=== PATIENT | female | born 1975 | race Caucasian/White ===

== ENCOUNTER 2016-03-18 14:21 | Emergency (ER) | payer MEDICAID, OTHER ==
[~2016-03-18 14:21] MED LIST: ACET50TAOT PO; AMBI10TA PO; CORTCRE TOP; DICLOFENAC 75 MG PO; HM A10TA PO; HYDR-3716 PO; IBUP600T26 PO; METH75TA PO; MILKSUS PO; MULTTAB24 PO; MUPI2CRE EX; NORCOTAB PO; OXYC1TAB23 PO; ROBA750T4 PO; TYLE325T5 PO; ZOLO100T PO; ZONI100C2 PO; [UNRECOGNIZED DRUG - CODE] PO; [UNRECOGNIZED DRUG - CODE] XX
[2016-03-18] MEDS ORDERED: MORPHINE 4 MG/ML 1ML SYRINGE As Ordered ONE (17:09)
[2016-03-18] MEDS ORDERED: ONDANSETRON 4MG/2ML VIAL (J2405) As Ordered ONE (17:09)
[2016-03-18] MEDS ORDERED: PANTOPRAZOLE 40MG INJ (PROTONIX) (C9113) As Ordered ONE (17:09)
[2016-03-18 17:11] LABS: BASO % 0.4 % (0.0-1.0); EOS # 0.1 K/mm3 (0.0-0.50); EOS % 1.1 % (0.0-3.0); LARGE UNSTAINED CELL # 0.1 K/mm3 (0.0-0.4); LARGE UNSTAINED CELL % 1.4 % (0.0-4.0); LYMPH # 2.8 K/mm3 (1.5-4.5); LYMPH % 27.8 % (24.0-44.0); MEAN CORPUSCULAR HEMOGLOBIN 30.5 pg (27.0-33.0); MEAN CORPUSCULAR HGB CONC 33.3 g/dl (32.0-36.5); MEAN CORPUSCULAR VOLUME 91.6 fl (80.0-96.0); MONO # 0.4 K/mm3 (0.0-0.8); MONO % 3.8 % (0.0-5.0); NEUTROPHILS # 6.6 K/mm3 (1.8-7.7); NEUTROPHILS % 65.5 % (36.0-66.0); PLATELET COUNT, AUTOMATED 294 k/mm3 (150-450); RED CELL DISTRIBUTION WIDTH 12.6 % (11.5-14.5); WHITE BLOOD COUNT 10.1 K/mm3 (4.0-10.0)
[2016-03-18 17:25] LABS: CONTROL LINE HCG INT CTR LINE PRESENT
[2016-03-18 17:34] LABS: ALBUMIN 3.9 GM/DL (3.2-5.2); ALBUMIN/GLOBULIN RATIO 1.05 (1.00-1.93); ALKALINE PHOSPHATASE 118 U/L (45-117); ALT/SGPT 62 U/L (12-78); AMYLASE 38 U/L (25-115); ANION GAP 8 MEQ/L (8-16); AST/SGOT 26 U/L (15-37); BILIRUBIN,DIRECT < 0.1 MG/DL (0.0-0.2); BILIRUBIN,TOTAL 0.3 MG/DL (0.2-1.0); BLOOD UREA NITROGEN 8 MG/DL (7-18); CALCIUM LEVEL 9.1 MG/DL (8.5-10.1); CARBON DIOXIDE LEVEL 26 MEQ/L (21-32); CHLORIDE LEVEL 107 MEQ/L (98-107); CREATININE FOR GFR 0.64 MG/DL (0.55-1.02); GLOMERULAR FILTRATION RATE > 60.0 (>60); GLUCOSE, FASTING 95 MG/DL (70-105); POTASSIUM SERUM 3.8 MEQ/L (3.5-5.1); SODIUM LEVEL 141 MEQ/L (136-145); TOTAL PROTEIN 7.6 GM/DL (6.4-8.2)
[2016-03-18] MEDS ORDERED: ISOVUE-370 76% 100ML VIAL (Q9967) As Ordered ONE (17:56)
--- NOTE | 2016-03-18 19:20 | REPUSA ---
CLINICAL HISTORY: Abdominal pain. TECHNIQUE: Multiple axial CT images were obtained through the abdomen and pelvis after administratio n of intravenous contrast material. FINDINGS: Comparison is made with the prior study dated 09/28/2014. The liver is of uniform attenuation without mass or defect. There is no intra or extrahepatic biliary ductal dilatation. The spleen is normal. The gallbladder is within normal limits. The pancreas is of normal contour and attenuation charact eristics. A 12 mm nodule is present in the left adrenal gland most compatible with an adenoma. This was present on the prior examination. Both kidneys demonstrate prompt and equal nephrograms. The kidneys are normal in size, shape and con figuration. There is no evidence of renal or ureteral mass. No renal or ureteral calculi are identi fied. There is no hydroureter or hydronephrosis. The appendix is not identified. Surgical clips are present in the right lower quadrant. There is arcenio dence of circumferential wall thickening involving fluid-filled loops of jejunum and ileum compatible with enteritis. Infectious and inflammatory etiologies are considered. No evidence for small or larg e bowel obstruction. There is no evidence of abdominal ascites or lymphadenopathy. Uterus and ovaries are unremarkable. There is no evidence of intrinsic or extrinsic bladder mass. There is no pelvic ascites or lymphaden opathy. Images of the lung bases show no evidence of pleural or parenchymal mass. There are no pleural effus ions. The bony structures are free of lytic or blastic lesions. There is evidence of ossific fragmen t adjacent to the superior anterior aspect of L3 vertebral body which may represent old trauma versus a limbus vertebral body. Consider followup with MRI. IMPRESSION: 1. A 12 mm nodule is present in the left adrenal gland most compatible with an adenoma. This was pres ent on the prior examination. 2. There is evidence of circumferential wall thickening involving fluid-filled loops of jejunum and i leum compatible with enteritis. Infectious and inflammatory etiologies are considered. 3. There is evidence of ossific fragment adjacent to the superior anterior aspect of L3 vertebral bod y which may represent old trauma versus a limbus vertebral body. Consider followup with MRI. Thank you for your kind referral of this patient. We appreciate the opportunity to participate in thi s patient's care.
[2016-03-18] MEDS ORDERED: NORCO, ANEXSIA 5/325MG TABLET (HYDROcodone/ACETAMINOPHEN) As Ordered ONE (20:16)
--- NOTE | 2016-03-18 20:38 | EDDOCDS ---
Physician Documentation [facility] Name: Albertina Mota Age: 41 yrs Sex: Female : 1975 Arrival Date: 03/18/2016 Time: 14:21 Bed I4 / M4 Private MD: Daren Brasher MD Disposition: 03/18/16 20:15 Discharged to Home/Self Care. Impression: Other specified noninfective gastroenteritis and colitis. - Condition is Stable. - Discharge Instructions: Diarrhea, Nausea and Vomiting. - Prescriptions for Flagyl 500 mg Oral Tablet - take 1 tablet by ORAL route every 8 hours for 10 days; 30 tablet. Prednisone 20 mg Oral Tablet - take 1 tablet by ORAL route once daily for 5 days; 5 tablet. ZOFRAN ODT 4 mg - dissolve 1 tablet by ORAL route 4 times per day As needed do not chew, do not swallow whole; 10 tablet. - Medication Reconciliation, Local Pharmacy Hours form. - Follow up: Daren Brasher; When: 2 - 3 days; Reason: Recheck today's complaints, Continuance of care. - Problem is new. - Symptoms have improved. - Notes: USE MEDICATION INSTRUCTED, FOLLOW UP WITH YOUR DOCTOR IN 2-3 DAYS, RETURN TO THE ER IF THE SYMPTOMS WORSEN OR BECOME CONCERNING Historical: - Allergies: Adhesives; Latex; Methocarbamol; Nickel; old chart says daphnie and piero; - Home Meds: 1. Ambien 10 mg Oral tab once daily 2. amitriptyline 50 mg Oral tab nightly 3. baclofen 10 mg Oral tab twice a day 4. hydrocodone-acetaminophen 7.5-325 mg Oral tab 1 tab every 4-6 hours 5. ibuprofen 600 mg Oral tab as needed 6. levothyroxine 25 mcg Oral cap once daily 7. lidocaine 4 % on back as needed - PMHx: chronic neck and back pain; Seasonal Allergies; Seizure Disorder; - PSHx: Appendectomy; Tubal ligation; cyst removed off her ovary; neck fusion; - Social history: Smoking status: Patient uses tobacco products, light tobacco smoker. No barriers to communication noted, The patient speaks fluent Sinhala. - Family history: Not pertinent. - : The pt / caregiver states he / she is not on anticoagulants. Home medication list is obtained from family members, [employer] import data. - Exposure Risk Screening:: None identified. 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 6 in. (167.64 cm) (R); Pain 6/10; 17:46 BP 120 / 82; Pulse 79; Resp 20; Temp 99.5; Pulse Ox 97% ; Pain 9/10; jam1 19:40 BP 124 / 85; Pulse 74; Resp 18; Temp 99.3; Pulse Ox 95% ; ajs 20:35 BP 117 / 75; Pulse 78; Resp 16; Temp 97.9(O); Pulse Ox 98% on R/A; Pain 5/10; ead 14:24 Body Mass Index 38.09 (107.05 kg, 167.64 cm) gr2 19:40 When pt was asked her pain level she replied "I dont think it really matters anymore" s MDM: 15:58 Undress patient appropriately for examination ordered. ck7 15:58 IV Saline Lock ordered. ck7 15:58 NS 0.9% 1000 ml IV at bolus once ordered. ck7 15:58 Ondansetron 4 mg IVP once ordered. ck7 15:58 pantoprazole 40 mg IV at bolus once ordered. ck7 15:58 morphine 4 mg IVP once ordered. ck7 16:00 Amylase Ordered. EDMS 16:00 Basic Metabolic Profile Ordered. EDMS 16:00 CBC with Diff Ordered. EDMS 16:00 Lipase Ordered. EDMS 16:00 Liver Profile Ordered. EDMS 16:00 Urinalysis Ordered. EDMS 16:00 HCG,Serum Qualitative Ordered. EDMS 16:00 Urine Culture Ordered. EDMS 16:00 NOTHING BY MOUTH+DIET ordered. EDMS 17:53 CBC with Diff Reviewed. ck7 17:53 Liver Profile Reviewed. ck7 17:53 Amylase Reviewed. ck7 17:53 Basic Metabolic Profile Reviewed. ck7 17:53 Lipase Reviewed. ck7 17:53 HCG,Serum Qualitative Reviewed. ck7 17:54 CT ABD & PELVIS: IV Contrast Only Ordered. EDMS 19:13 Urinalysis Reviewed. ck7 19:15 Financial registration complete. ks16 20:08 Fluid Challenge ordered. ck7 20:11 CT ABD & PELVIS: IV Contrast Only Reviewed. ck7 20:14 HYDROcodone-acetaminophen 5 mg-325 mg 1 tabs PO once ordered. ck7 Administered Medications: 17:17 Drug: NS 0.9% 1000 ml [sodium chloride 0.9 % intravenous solution] Route: IV; Rate: mk4 bolus; Site: left antecubital; 18:15 Follow up: IV Status: Completed infusion; IV Intake: 1000ml ead 17:17 Drug: Ondansetron 4 mg Route: IVP; Site: left antecubital; mk4 17:17 Drug: pantoprazole 40 mg [pantoprazole 40 mg intravenous solution] Route: IV; Rate: mk4 bolus; Site: left antecubital; 17:17 Drug: morphine 4 mg [morphine 4 mg/mL intravenous cartridge (1 mL)] Route: IVP; Site: mk4 left antecubital; 20:18 Drug: HYDROcodone-acetaminophen 1 tabs [hydrocodone 5 mg-acetaminophen 325 mg tablet (1 ead tabs)] Route: PO; 20:35 Follow up: Response: Confirmed pt not driving.; No Adverse Reaction; Pain is decreased ead Signatures: Dispatcher [employer] Heather Boggs RN RN kcs Kwaczala, Christopher, RPA-C [id number] Vaishnavi Jade RN RN mk4 Dunaway, Emily, RN RN eaKatlyn Castellanos, Reg Reg ks16 MTDD
--- NOTE | 2016-03-18 20:39 | EDDOCDS ---
Nurse's Notes [facility] Name: Albertina Mota Age: 41 yrs Sex: Female : 1975 Arrival Date: 03/18/2016 Time: 14:21 Bed I4 / M4 Private MD: Daren Brasher MD Diagnosis: Other specified noninfective gastroenteritis and colitis Presentation: 03/18 14:45 Presenting complaint: Presenting complaint: Patient states: I want to go home but kcs mother states you were sent here to be admitted and at the least you are dehydrated. Mother states: patient has not been able to keep anything done for the last 5 days - hardly able to keep sprite down - states her emesis looks like grizzled meat. Dr. Brasher's office would not let patient leave until mother go there. Having migraines because she can't keep her meds down. Other household members have the same syptoms. 14:47 Adult Sepsis Screening: Patient has new or worsening altered mentation (1 point). kcs Patient's respiratory rate is less than 22. Systolic blood pressure is greater than 100. Patient has a qSOFA score of 0- Negative Sepsis Screen. Suicide/Homicide risk assessment- the patient denies having any suicidal and/or homicidal ideations and does not present with any other emotional, behavioral or mental health complaints. Status: Patient is not a home restoration service cleaner or dependent. Transition of care: patient was not received from another setting of care. 14:47 Acuity: TRICIA Level 3 kcs 14:47 Method Of Arrival: Wheelchair kcs Triage Assessment: 14:52 General: Appears distressed, obese, well developed, well nourished, well groomed, kcs Behavior is cooperative, pleasant, taking baby talk to her mother. Pain: Location: head Pain currently is 10 out of 10 on a pain scale. HIV screening NA for this visit Offered previously. Neurological: Level of Consciousness is awake, alert. Respiratory: Airway is patent Respiratory effort is even, unlabored, Respiratory pattern is regular, symmetrical. GI: Reports nausea, vomiting. Derm: Skin is intact, is healthy with good turgor, Skin is dry, Skin is normal. RIGHT OF WAY APPRAISER: 14:52 LMP 02/14/2016 kcs Historical: - Allergies: Adhesives; Latex; Methocarbamol; Nickel; old chart says stadol and robaxin; - Home Meds: 1. Ambien 10 mg Oral tab once daily 2. amitriptyline 50 mg Oral tab nightly 3. baclofen 10 mg Oral tab twice a day 4. hydrocodone-acetaminophen 7.5-325 mg Oral tab 1 tab every 4-6 hours 5. ibuprofen 600 mg Oral tab as needed 6. levothyroxine 25 mcg Oral cap once daily 7. lidocaine 4 % on back as needed - PMHx: chronic neck and back pain; Seasonal Allergies; Seizure Disorder; - PSHx: Appendectomy; Tubal ligation; cyst removed off her ovary; neck fusion; - Social history: Smoking status: Patient uses tobacco products, light tobacco smoker. No barriers to communication noted, The patient speaks fluent Occitan. - Family history: Not pertinent. - : The pt / caregiver states he / she is not on anticoagulants. Home medication list is obtained from family members, [employer] import data. - Exposure Risk Screening:: None identified. Screenin:00 Screening information is obtained from the patient. Fall risk: No risks identified. 4 Assistance ADL's: requires no assistance with activities of daily living. Abuse/DV Screen: The patient / caregiver reports he/she is: not in a situation that causes fear, pain or injury. Nutritional screening: No deficits noted. Advance Directives: Currently, there is no health care proxy. There is no active DNR order. There is no living will. There is no Power of Flight Communications Operator. Advance directive information has not previously been placed in an [facility] medical record. home support is adequate. Assessment: 14:45 General: mother stated patient had passed out while sitting in a w/c - patient had head kcs over the back of the chair and her arms over the side - ammonia inhalant used and patient immediately jerked around and slid in the seat. assisted back up into a more upright position with the mother saying do not touch her back - patient noted to be incontinent of urine.. 17:05 General: Appears in no apparent distress, Behavior is cooperative, Pt placed in [facility] mk4 room M4 pt states 10/10 pain "entire body except left lower leg and right arm" per pt. pt states that she has chronic pain all over her body and is a pt of the pain clinic . 18:00 General: Appears in no apparent distress. Respiratory: Airway is patent Respiratory 4 effort is even, unlabored. GI: Abdomen is obese, Bowel sounds present X 4 quads. Abd is soft and non tender X 4 quads. Derm: Skin is intact, is healthy with good turgor. 18:54 Reassessment: Patient appears in no apparent distress at this time. General: Appears in mk4 no apparent distress, continues to have her all over body pain but at its baseline 8-9, states " she threw up once" but didn't call anyone . 20:21 General: Appears in no apparent distress, Behavior is cooperative. Neurological: Level ead of Consciousness is awake, alert, obeys commands, Oriented to person, place, time. Respiratory: Airway is patent Respiratory effort is even, unlabored. GI: Denies vomiting. Derm: Skin is pink, warm & dry. Vital Signs: 14:24 BP 115 / 76; Pulse 100; Resp 18 S; Temp 97.6(T); Pulse Ox 98% on R/A; Weight 107.05 kg gr2 (R); Height 5 ft. 6 in. (167.64 cm) (R); Pain 6/10; 17:46 BP 120 / 82; Pulse 79; Resp 20; Temp 99.5; Pulse Ox 97% ; Pain 9/10; jam1 19:40 BP 124 / 85; Pulse 74; Resp 18; Temp 99.3; Pulse Ox 95% ; ajs 20:35 BP 117 / 75; Pulse 78; Resp 16; Temp 97.9(O); Pulse Ox 98% on R/A; Pain 5/10; ead 14:24 Body Mass Index 38.09 (107.05 kg, 167.64 cm) gr2 19:40 When pt was asked her pain level she replied "I dont think it really matters anymore" [facility] Vitals: 14:24 Log In Time: March 18, 2016 at 14:24. gr2 ED Course: 14:23 Patient visited by Momo Monsalve. gr2 14:23 Patient moved to Waiting gr2 14:24 Daren Brasher is Private Physician. gr2 14:26 Patient visited by Momo Monsalve. gr2 14:26 Patient moved to Pre RCE gr2 14:51 Triage Initiated kcs 15:18 Patient moved to Triage 2 ar3 15:38 Loy Galindo RPA-C [facility]. ck7 15:38 Rhonda Marshall MD is Attending Physician. ck7 15:38 Patient visited by Loy Galindo RPA-C. ck7 16:09 Patient visited by Loy Galindo RPA-C. ck7 16:58 HCG,Serum Qualitative Sent. mb9 16:58 Amylase Sent. mb9 16:58 Basic Metabolic Profile Sent. mb9 16:58 CBC with Diff Sent. mb9 16:58 Lipase Sent. mb9 16:58 Liver Profile Sent. mb9 17:05 Patient moved to I4 / M4 ar3 17:07 Patient visited by Vaishnavi Jade RN. mk4 17:53 Patient visited by Loy Galindo RPA-C. ck7 18:00 The patient / caregiver is instructed regarding the plan of care and ED course. mk4 18:00 No IV's were initiated during this patient's visit. No procedures done that require mk4 assistance. 18:[address] mk4 18:10 Patient moved to I4 / M4 srm 18:13 Patient visited by Vaishnavi Jade RN. mk4 18:54 Patient visited by Vaishnavi Jade RN. mk4 19:41 Patient visited by Ilsa Eugene. ajs 19:50 CT ABD & PELVIS: IV Contrast Only Returned. EDMS 20:11 Patient visited by Loy Galindo RPA-C. ck7 20:14 Daren Brasher is Referral Physician. ck7 20:35 Discontinued lock intact, bleeding controlled, pressure dressing applied, No ead redness/swelling at site. Administered Medications: 17:17 Drug: NS 0.9% 1000 ml [sodium chloride 0.9 % intravenous solution] Route: IV; Rate: mk4 bolus; Site: left antecubital; 18:15 Follow up: IV Status: Completed infusion; IV Intake: 1000ml ead 17:17 Drug: Ondansetron 4 mg Route: IVP; Site: left antecubital; mk4 17:17 Drug: pantoprazole 40 mg [pantoprazole 40 mg intravenous solution] Route: IV; Rate: mk4 bolus; Site: left antecubital; 17:17 Drug: morphine 4 mg [morphine 4 mg/mL intravenous cartridge (1 mL)] Route: IVP; Site: mk4 left antecubital; 20:18 Drug: HYDROcodone-acetaminophen 1 tabs [hydrocodone 5 mg-acetaminophen 325 mg tablet (1 ead tabs)] Route: PO; 20:35 Follow up: Response: Confirmed pt not driving.; No Adverse Reaction; Pain is decreased ead Intake: 18:15 IV: 1000.00ml; Total: 1000.00ml. ead Order Results: Lab Order: Amylase; SPEC'M 03/18/16 16:54 Test: AMYLASE; Value: 38; Range: 25-115; Units: U/L; Status: F Lab Order: Basic Metabolic Profile; SPEC'M 03/18/16 16:54 Test: GLUCOSE, FASTING; Value: 95; Range: 70-105; Units: MG/DL; Status: F Test: BLOOD UREA NITROGEN; Value: 8; Range: 7-18; Units: MG/DL; Status: F Test: CREATININE FOR GFR; Value: 0.64; Range: 0.55-1.02; Units: MG/DL; Status: F Test: SODIUM LEVEL; Range: 136-145; Units: MEQ/L; Status: I Test: POTASSIUM SERUM; Range: 3.5-5.1; Units: MEQ/L; Status: I Test: CHLORIDE LEVEL; Range: 98-107; Units: MEQ/L; Status: I Test: CARBON DIOXIDE LEVEL; Range: 21-32; Units: MEQ/L; Status: I Test: ANION GAP; Range: 8-16; Units: MEQ/L; Status: I Test: CALCIUM LEVEL; Range: 8.5-10.1; Units: MG/DL; Status: I Test: GLOMERULAR FILTRATION RATE; Value: > 60.0; Range: >60; Status: F Test: SODIUM LEVEL; Value: 141; Range: 136-145; Units: MEQ/L; Status: F Test: POTASSIUM SERUM; Value: 3.8; Range: 3.5-5.1; Units: MEQ/L; Status: F Test: CHLORIDE LEVEL; Value: 107; Range: 98-107; Units: MEQ/L; Status: F Test: CARBON DIOXIDE LEVEL; Value: 26; Range: 21-32; Units: MEQ/L; Status: F Test: ANION GAP; Value: 8; Range: 8-16; Units: MEQ/L; Status: F Test: CALCIUM LEVEL; Value: 9.1; Range: 8.5-10.1; Units: MG/DL; Status: F Test Note: ; Units are mL/min/1.73 m2 Chronic Kidney Disease Staging per NKF: Stage I & II GFR >=60 Normal to Mildly Decreased Stage III GFR 30-59 Moderately Decreased Stage IV GFR 15-29 Severely Decreased Stage V GFR <15 Very Little GFR Left ESRD GFR <15 on [employer]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 Lab Order: CBC with Diff; SPEC'M 03/18/16 16:54 Test: WHITE BLOOD COUNT; Value: 10.1; Range: 4.0-10.0; Abnormal: Above high normal; Units: K/mm3; Status: F Test: RED BLOOD COUNT; Value: 5.06; Range: 4.00-5.40; Units: M/mm3; Status: F Test: HEMOGLOBIN; Value: 15.5; Range: 12.0-16.0; Units: g/dl; Status: F Test: HEMATOCRIT; Value: 46.4; Range: 36.0-47.0; Units: %; Status: F Test: MEAN CORPUSCULAR VOLUME; Value: 91.6; Range: 80.0-96.0; Units: fl; Status: F Test: MEAN CORPUSCULAR HEMOGLOBIN; Value: 30.5; Range: 27.0-33.0; Units: pg; Status: F Test: MEAN CORPUSCULAR HGB CONC; Value: 33.3; Range: 32.0-36.5; Units: g/dl; Status: F Test: RED CELL DISTRIBUTION WIDTH; Value: 12.6; Range: 11.5-14.5; Units: %; Status: F Test: PLATELET COUNT, AUTOMATED; Value: 294; Range: 150-450; Units: k/mm3; Status: F Test: NEUTROPHILS %; Value: 65.5; Range: 36.0-66.0; Units: %; Status: F Test: LYMPH %; Value: 27.8; Range: 24.0-44.0; Units: %; Status: F Test: MONO %; Value: 3.8; Range: 0.0-5.0; Units: %; Status: F Test: EOS %; Value: 1.1; Range: 0.0-3.0; Units: %; Status: F Test: BASO %; Value: 0.4; Range: 0.0-1.0; Units: %; Status: F Test: LARGE UNSTAINED CELL %; Value: 1.4; Range: 0.0-4.0; Units: %; Status: F Test: NEUTROPHILS #; Value: 6.6; Range: 1.8-7.7; Units: K/mm3; Status: F Test: LYMPH #; Value: 2.8; Range: 1.5-4.5; Units: K/mm3; Status: F Test: MONO #; Value: 0.4; Range: 0.0-0.8; Units: K/mm3; Status: F Test: EOS #; Value: 0.1; Range: 0.0-0.50; Units: K/mm3; Status: F Test: BASO #; Value: 0.0; Range: 0.0-0.2; Units: K/mm3; Status: F Test: LARGE UNSTAINED CELL #; Value: 0.1; Range: 0.0-0.4; Units: K/mm3; Status: F Lab Order: Lipase; SPEC'M 03/18/16 16:54 Test: LIPASE; Value: 151; Range: 73-393; Units: U/L; Status: F Lab Order: Liver Profile; SPEC' 03/18/16 16:54 Test: AST/SGOT; Value: 26; Range: 15-37; Units: U/L; Status: F Test: ALT/SGPT; Value: 62; Range: 12-78; Units: U/L; Status: F Test: ALKALINE PHOSPHATASE; Value: 118; Range: 45-117; Abnormal: Above high normal; Units: U/L; Status: F Test: BILIRUBIN,TOTAL; Value: 0.3; Range: 0.2-1.0; Units: MG/DL; Status: F Test: BILIRUBIN,DIRECT; Value: < 0.1; Range: 0.0-0.2; Units: MG/DL; Status: F Test: TOTAL PROTEIN; Value: 7.6; Range: 6.4-8.2; Units: GM/DL; Status: F Test: ALBUMIN; Value: 3.9; Range: 3.2-5.2; Units: GM/DL; Status: F Test: ALBUMIN/GLOBULIN RATIO; Value: 1.05; Range: 1.00-1.93; Status: F Lab Order: Urinalysis; SPEC'M 03/18/16 18:21 Test: APPEARANCE, URINE; Value: CLOUDY; Range: CLEAR; Abnormal: Above high normal; Status: F Test: COLOR, URINE; Value: YELLOW; Range: YELLOW; Status: F Test: PH,URINE; Value: 6.0; Range: 5.0-9.0; Units: UNITS; Status: F Test: SPECIFIC GRAVITY URINE AUTO; Value: 1.017; Range: 1.002-1.035; Status: F Test: PROTEIN, URINE AUTO; Value: NEGATIVE; Range: NEGATIVE; Units: mg/dL; Status: F Test: GLUCOSE, URINE (UA) AUTO; Value: NEGATIVE; Range: NEGATIVE; Units: mg/dL; Status: F Test: KETONE, URINE AUTO; Value: NEGATIVE; Range: NEGATIVE; Units: mg/dL; Status: F Test: UROBILINOGEN, URINE AUTO; Value: 0.2; Range: 0.0-2.0; Units: mg/dL; Status: F Test: BILIRUBIN, URINE AUTO; Value: NEGATIVE; Range: NEGATIVE; Status: F Test: NITRITE, URINE AUTO; Value: NEGATIVE; Range: NEGATIVE; Status: F Test: LEUKOCYTE ESTERASE, URINE AUTO; Value: 3+; Range: NEGATIVE; Abnormal: Above high normal; Status: F Test: BLOOD, URINE BLOOD; Value: 1+; Range: NEGATIVE; Abnormal: Above high normal; Status: F Test: WBC, URINE AUTO; Value: 4; Range: 0-3; Abnormal: Above high normal; Units: /HPF; Status: F Test: RBC, URINE AUTO; Value: 5; Range: 0-3; Abnormal: Above high normal; Units: /HPF; Status: F Test: BACTERIA, URINE AUTO; Value: 1+; Range: NEGATIVE; Abnormal: Above high normal; Status: F Test: SQUAMOUS EPITHELIAL CELL UR AU; Value: 23; Range: 0-6; Units: /HPF; Status: F Test: MUCUS, URINE; Value: SMALL; Range: NEGATIVE; Status: F Test: HYALINE CAST, URINE AUTO; Value: 0; Range: 0-1; Units: /LPF; Status: F Test: AMORPHOUS SEDIMENT; Value: SMALL; Range: NEGATIVE; Abnormal: Above high normal; Status: F Lab Order: HCG,Serum Qualitative; SPEC'M 03/18/16 16:54 Test: HCG, SERUM QUALITATIVE; Value: NEGATIVE; Range: NEGATIVE; Status: F Radiology Order: CT ABD & PELVIS: IV Contrast Only Test: CT ABD & PELVIS: IV Contrast Only REASON FOR EXAMINATION: Abdomen Pain; ; CLINICAL HISTORY: Abdominal pain.; ; TECHNIQUE: Multiple axial CT images were obtained through the abdomen and pelvis after administratio; n of intravenous contrast material.; ; FINDINGS:; Comparison is made with the prior study dated 09/28/2014. The liver is of uniform attenuation without; mass or defect. There is no intra or extrahepatic biliary ductal dilatation. The spleen is normal.; The gallbladder is within normal limits. The pancreas is of normal contour and attenuation charact; eristics. A 12 mm nodule is present in the left adrenal gland most compatible with an adenoma. This; was present on the prior examination.; ; Both kidneys demonstrate prompt and equal nephrograms. The kidneys are normal in size, shape and con; figuration. There is no evidence of renal or ureteral mass. No renal or ureteral calculi are identi; fied. There is no hydroureter or hydronephrosis.; ; The appendix is not identified. Surgical clips are present in the right lower quadrant. There is arcenio; dence of circumferential wall thickening involving fluid-filled loops of jejunum and ileum compatible; with enteritis. Infectious and inflammatory etiologies are considered. No evidence for small or larg; e bowel obstruction. There is no evidence of abdominal ascites or lymphadenopathy.; ; Uterus and ovaries are unremarkable.; ; There is no evidence of intrinsic or extrinsic bladder mass. There is no pelvic ascites or lymphaden; opathy.; ; Images of the lung bases show no evidence of pleural or parenchymal mass. There are no pleural effus; ions. The bony structures are free of lytic or blastic lesions. There is evidence of ossific fragmen; t adjacent to the superior anterior aspect of L3 vertebral body which may represent old trauma versus; a limbus vertebral body. Consider followup with MRI.; ; IMPRESSION:; 1. A 12 mm nodule is present in the left adrenal gland most compatible with an adenoma. This was pres; ent on the prior examination.; 2. There is evidence of circumferential wall thickening involving fluid-filled loops of jejunum and i; leum compatible with enteritis. Infectious and inflammatory etiologies are considered.; 3. There is evidence of ossific fragment adjacent to the superior anterior aspect of L3 vertebral bod; y which may represent old trauma versus a limbus vertebral body. Consider followup with MRI.; ; Thank you for your kind referral of this patient. We appreciate the opportunity to participate in thi; s patient's care.; ; ; ; Outcome: 20:15 Discharge ordered by Provider. ck7 20:36 Discharge Assessment: Patient awake and alert. obeys commands, Oriented to person, ead place and time. patient administered narcotics - yes. Pt provided with safe discharge. The following High Risk Discharge criteria are identified: None. Discharged to home ambulatory, with parent. Condition: improved. Discharge instructions given to patient, parents Instructed on discharge instructions, follow up and referral plans. medication usage, Demonstrated understanding of instructions, medications, Pt was receptive of discharge instructions/ teaching. Prescriptions given X 3. CT Study completed. Property sent home with patient. 20:37 Patient left the ED. ead Signatures: Dispatcher [employer] EDMS Heather Maynard RN RN Haleigh Dietrich RN RN Minerva Bishop, OUT OF TOWN COLLECTION CLERK OUT OF TOWN COLLECTION CLERK jam1 Teodora Kennedy, OUT OF TOWN COLLECTION CLERK OUT OF TOWN COLLECTION CLERK ar3 Ilsa Eugene Christopher, RPA-C [id number] Momo Monsalve gr2 Vaishnavi Jade RN RN [email or web address] Stefany Bai RN RN Davey Garcias,RN RN mb9 Corrections: (The following items were deleted from the chart) 14:51 14:45 Presenting complaint: kcs kcs MTDD
--- NOTE | 2016-03-20 21:39 | EDDOCDS ---
Physician Documentation [facility] Name: Albertina Mota Age: 41 yrs Sex: Female : 1975 Arrival Date: 03/18/2016 Time: 14:21 Bed I4 / M4 Private MD: Daren Brasher MD Disposition: 03/18/16 20:15 Discharged to Home/Self Care. Impression: Other specified noninfective gastroenteritis and colitis. - Condition is Stable. - Discharge Instructions: Diarrhea, Nausea and Vomiting. - Prescriptions for Flagyl 500 mg Oral Tablet - take 1 tablet by ORAL route every 8 hours for 10 days; 30 tablet. Prednisone 20 mg Oral Tablet - take 1 tablet by ORAL route once daily for 5 days; 5 tablet. ZOFRAN ODT 4 mg - dissolve 1 tablet by ORAL route 4 times per day As needed do not chew, do not swallow whole; 10 tablet. - Medication Reconciliation, Local Pharmacy Hours form. - Follow up: Daren Brasher; When: 2 - 3 days; Reason: Recheck today's complaints, Continuance of care. - Problem is new. - Symptoms have improved. - Notes: USE MEDICATION INSTRUCTED, FOLLOW UP WITH YOUR DOCTOR IN 2-3 DAYS, RETURN TO THE ER IF THE SYMPTOMS WORSEN OR BECOME CONCERNING Historical: - Allergies: Adhesives; Latex; Methocarbamol; Nickel; old chart says daphnie and piero; - Home Meds: 1. Ambien 10 mg Oral tab once daily 2. amitriptyline 50 mg Oral tab nightly 3. baclofen 10 mg Oral tab twice a day 4. hydrocodone-acetaminophen 7.5-325 mg Oral tab 1 tab every 4-6 hours 5. ibuprofen 600 mg Oral tab as needed 6. levothyroxine 25 mcg Oral cap once daily 7. lidocaine 4 % on back as needed - PMHx: chronic neck and back pain; Seasonal Allergies; Seizure Disorder; - PSHx: Appendectomy; Tubal ligation; cyst removed off her ovary; neck fusion; - Social history: Smoking status: Patient uses tobacco products, light tobacco smoker. No barriers to communication noted, The patient speaks fluent Occitan. - Family history: Not pertinent. - : The pt / caregiver states he / she is not on anticoagulants. Home medication list is obtained from family members, [employer] import data. - Exposure Risk Screening:: None identified. 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 6 in. (167.64 cm) (R); Pain 6/10; 17:46 BP 120 / 82; Pulse 79; Resp 20; Temp 99.5; Pulse Ox 97% ; Pain 9/10; jam1 19:40 BP 124 / 85; Pulse 74; Resp 18; Temp 99.3; Pulse Ox 95% ; ajs 20:35 BP 117 / 75; Pulse 78; Resp 16; Temp 97.9(O); Pulse Ox 98% on R/A; Pain 5/10; ead 14:24 Body Mass Index 38.09 (107.05 kg, 167.64 cm) gr2 19:40 When pt was asked her pain level she replied "I dont think it really matters anymore" s MDM: 15:58 Undress patient appropriately for examination ordered. ck7 15:58 IV Saline Lock ordered. ck7 15:58 NS 0.9% 1000 ml IV at bolus once ordered. ck7 15:58 Ondansetron 4 mg IVP once ordered. ck7 15:58 pantoprazole 40 mg IV at bolus once ordered. ck7 15:58 morphine 4 mg IVP once ordered. ck7 16:00 Amylase Ordered. EDMS 16:00 Basic Metabolic Profile Ordered. EDMS 16:00 CBC with Diff Ordered. EDMS 16:00 Lipase Ordered. EDMS 16:00 Liver Profile Ordered. EDMS 16:00 Urinalysis Ordered. EDMS 16:00 HCG,Serum Qualitative Ordered. EDMS 16:00 Urine Culture Ordered. EDMS 16:00 NOTHING BY MOUTH+DIET ordered. EDMS 17:53 CBC with Diff Reviewed. ck7 17:53 Liver Profile Reviewed. ck7 17:53 Amylase Reviewed. ck7 17:53 Basic Metabolic Profile Reviewed. ck7 17:53 Lipase Reviewed. ck7 17:53 HCG,Serum Qualitative Reviewed. ck7 17:54 CT ABD & PELVIS: IV Contrast Only Ordered. EDMS 19:13 Urinalysis Reviewed. ck7 19:15 Financial registration complete. ks16 20:08 Fluid Challenge ordered. ck7 20:11 CT ABD & PELVIS: IV Contrast Only Reviewed. ck7 20:14 HYDROcodone-acetaminophen 5 mg-325 mg 1 tabs PO once ordered. ck7 23:10 [facility] Payment Agreement was scanned into [email or web address] and attached to record. 03/19 00:30 ED course: dr brasher faxed formal report of ct abd/p for fu mlg. ml 09:26 T-Sheet-- Draft Copy was scanned into dev9k and attached to record. gb Administered Medications: 03/18 17:17 Drug: NS 0.9% 1000 ml [sodium chloride 0.9 % intravenous solution] Route: IV; Rate: mk4 bolus; Site: left antecubital; 18:15 Follow up: IV Status: Completed infusion; IV Intake: 1000ml ead 17:17 Drug: Ondansetron 4 mg Route: IVP; Site: left antecubital; mk4 17:17 Drug: pantoprazole 40 mg [pantoprazole 40 mg intravenous solution] Route: IV; Rate: mk4 bolus; Site: left antecubital; 17:17 Drug: morphine 4 mg [morphine 4 mg/mL intravenous cartridge (1 mL)] Route: IVP; Site: mk4 left antecubital; 20:18 Drug: HYDROcodone-acetaminophen 1 tabs [hydrocodone 5 mg-acetaminophen 325 mg tablet (1 ead tabs)] Route: PO; 20:35 Follow up: Response: Confirmed pt not driving.; No Adverse Reaction; Pain is decreased ead Signatures: Dispatcher [employer] EDMS Barb Doan MD MD ml Sleeman, Kacey RN Deepika Abraham, Reg Reg gb Loy Galindo, ALEXA-C RPA-Cck7 Vaishnavi Jade RN RN mk4 Stefany Bai RN RN eaKatlyn Castellanos, Reg Reg ks16 The chart was reviewed and I authenticate all verbal orders and agree with the evaluation and treatment provided.Attachments: 23:10 [facility] Payment Agreement 03/19 09:26 T-Sheet-- Draft Copy gb Chart Complete MTDD
--- NOTE | 2016-03-20 21:39 | EDDOCDS ---
Nurse's Notes [facility] Name: Albertina Mota Age: 41 yrs Sex: Female : 1975 Arrival Date: 03/18/2016 Time: 14:21 Bed I4 / M4 Private MD: Daren Brasher MD Diagnosis: Other specified noninfective gastroenteritis and colitis Presentation: 03/18 14:45 Presenting complaint: Presenting complaint: Patient states: I want to go home but kcs mother states you were sent here to be admitted and at the least you are dehydrated. Mother states: patient has not been able to keep anything done for the last 5 days - hardly able to keep sprite down - states her emesis looks like grizzled meat. Dr. Brasher's office would not let patient leave until mother go there. Having migraines because she can't keep her meds down. Other household members have the same syptoms. 14:47 Adult Sepsis Screening: Patient has new or worsening altered mentation (1 point). kcs Patient's respiratory rate is less than 22. Systolic blood pressure is greater than 100. Patient has a qSOFA score of 0- Negative Sepsis Screen. Suicide/Homicide risk assessment- the patient denies having any suicidal and/or homicidal ideations and does not present with any other emotional, behavioral or mental health complaints. 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 Transition of care: patient was not received from another setting of care. 14:47 Acuity: TRICIA Level 3 kcs 14:47 Method Of Arrival: Wheelchair kcs Triage Assessment: 14:52 General: Appears distressed, obese, well developed, well nourished, well groomed, kcs Behavior is cooperative, pleasant, taking baby talk to her mother. Pain: Location: head Pain currently is 10 out of 10 on a pain scale. HIV screening NA for this visit Offered previously. Neurological: Level of Consciousness is awake, alert. Respiratory: Airway is patent Respiratory effort is even, unlabored, Respiratory pattern is regular, symmetrical. GI: Reports nausea, vomiting. Derm: Skin is intact, is healthy with good turgor, Skin is dry, Skin is normal. 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 Ambien 10 mg Oral tab once daily 2. amitriptyline 50 mg Oral tab nightly 3. baclofen 10 mg Oral tab twice a day 4. hydrocodone-acetaminophen 7.5-325 mg Oral tab 1 tab every 4-6 hours 5. ibuprofen 600 mg Oral tab as needed 6. levothyroxine 25 mcg Oral cap once daily 7. lidocaine 4 % on back as needed - PMHx: chronic neck and back pain; Seasonal Allergies; Seizure Disorder; - PSHx: Appendectomy; Tubal ligation; cyst removed off her ovary; neck fusion; - Social history: Smoking status: Patient uses tobacco products, light tobacco smoker. No barriers to communication noted, The patient speaks fluent Estonian. - Family history: Not pertinent. - : The pt / caregiver states he / she is not on anticoagulants. Home medication list is obtained from family members, [employer] import data. - Exposure Risk Screening:: None identified. Screenin:00 Screening information is obtained from the patient. Fall risk: No risks identified. 4 Assistance ADL's: requires no assistance with activities of daily living. Abuse/DV Screen: The patient / caregiver reports he/she is: not in a situation that causes fear, pain or injury. Nutritional screening: No deficits noted. Advance Directives: Currently, there is no health care proxy. There is no active DNR order. There is no living will. There is no Power of Supervisor Sewer System. Advance directive information has not previously been placed in an [facility] medical record. home support is adequate. Assessment: 14:45 General: mother stated patient had passed out while sitting in a w/c - patient had head kcs over the back of the chair and her arms over the side - ammonia inhalant used and patient immediately jerked around and slid in the seat. assisted back up into a more upright position with the mother saying do not touch her back - patient noted to be incontinent of urine.. 17:05 General: Appears in no apparent distress, Behavior is cooperative, [facility] placed [place] [facility] [place] M4 pt states 10/10 pain "entire body except left lower leg and right arm" per pt. pt states that she has chronic pain all over her body and is a pt of the pain clinic . 18:00 General: Appears in no apparent distress. Respiratory: Airway is patent Respiratory 4 effort is even, unlabored. GI: Abdomen is obese, Bowel sounds present X 4 quads. Abd is soft and non tender X 4 quads. Derm: Skin is intact, is healthy with good turgor. 18:54 Reassessment: Patient appears in no apparent distress at this time. General: Appears in mk4 no apparent distress, continues to have her all over body pain but at its baseline 8-9, states " she threw up once" but didn't call anyone . 20:21 General: Appears in no apparent distress, Behavior is cooperative. Neurological: Level ead of Consciousness is awake, alert, obeys commands, Oriented to person, place, time. Respiratory: Airway is patent Respiratory effort is even, unlabored. GI: Denies vomiting. Derm: Skin is pink, warm & dry. Vital Signs: 14:24 BP 115 / 76; Pulse 100; Resp 18 S; Temp 97.6(T); Pulse Ox 98% on R/A; Weight 107.05 kg gr2 (R); Height 5 ft. 6 in. (167.64 cm) (R); Pain 6/10; 17:46 BP 120 / 82; Pulse 79; Resp 20; Temp 99.5; Pulse Ox 97% ; Pain 9/10; jam1 19:40 BP 124 / 85; Pulse 74; Resp 18; Temp 99.3; Pulse Ox 95% ; ajs 20:35 BP 117 / 75; Pulse 78; Resp 16; Temp 97.9(O); Pulse Ox 98% on R/A; Pain 5/10; ead 14:24 Body Mass Index 38.09 (107.05 kg, 167.64 cm) gr2 19:40 When pt was asked her pain level she replied "I dont think it really matters anymore" [facility] Vitals: 14:24 Log In Time: March 18, 2016 at 14:24. gr2 ED Course: 14:23 Patient visited by Momo Monsalve. gr2 14:23 Patient moved to Waiting gr2 14:24 Daren Brasher is Private Physician. gr2 14:26 Patient visited by Momo Monsalve. gr2 14:26 Patient moved to Pre RCE gr2 14:51 Triage Initiated kcs 15:18 Patient moved to Triage 2 ar3 15:38 [facility] ck7 15:38 Rhonda Marshall MD is Attending Physician. ck7 15:38 Patient visited by Loy Galindo RPA-C. ck7 16:09 Patient visited by Loy Galindo RPA-C. ck7 16:58 HCG,Serum Qualitative Sent. mb9 16:58 Amylase Sent. mb9 16:58 Basic Metabolic Profile Sent. mb9 16:58 CBC with Diff Sent. mb9 16:58 Lipase Sent. mb9 16:58 Liver Profile Sent. mb9 17:05 Patient moved to I4 / M4 ar3 17:07 Patient visited by Vaishnavi Jade RN. mk4 17:53 Patient visited by Loy Galindo RPA-C. ck7 18:00 The patient / caregiver is instructed regarding the plan of care and ED course. mk4 18:00 No IV's were initiated during this patient's visit. No procedures done that require mk4 assistance. 18:[address] mk4 18:10 Patient moved to I4 / M4 srm 18:13 Patient visited by Vaishnavi Jade RN. mk4 18:54 Patient visited by Vaishnavi Jade RN. mk4 19:41 Patient visited by Ilsa Eugene. ajs 19:50 CT ABD & PELVIS: IV Contrast Only Returned. EDMS 20:11 Patient visited by Loy Galindo RPA-C. ck7 20:14 Daren Brasher is Referral Physician. ck7 20:35 Discontinued lock intact, bleeding controlled, pressure dressing applied, No ead redness/swelling at site. 23:10 [facility] Payment Agreement was scanned into [employer] and attached to record. ks16 03/19 09:26 T-Sheet-- Draft Copy was scanned into [employer] and attached to record. gb Administered Medications: 03/18 17:17 Drug: NS 0.9% 1000 ml [sodium chloride 0.9 % intravenous solution] Route: IV; Rate: mk4 bolus; Site: left antecubital; 18:15 Follow up: IV Status: Completed infusion; IV Intake: 1000ml ead 17:17 Drug: Ondansetron 4 mg Route: IVP; Site: left antecubital; mk4 17:17 Drug: pantoprazole 40 mg [pantoprazole 40 mg intravenous solution] Route: IV; Rate: mk4 bolus; Site: left antecubital; 17:17 Drug: morphine 4 mg [morphine 4 mg/mL intravenous cartridge (1 mL)] Route: IVP; Site: mk4 left antecubital; 20:18 Drug: HYDROcodone-acetaminophen 1 tabs [hydrocodone 5 mg-acetaminophen 325 mg tablet (1 ead tabs)] Route: PO; 20:35 Follow up: Response: Confirmed pt not driving.; No Adverse Reaction; Pain is decreased ead Intake: 18:15 IV: 1000.00ml; Total: 1000.00ml. ead Order Results: Lab Order: Amylase; SPEC'M 03/18/16 16:54 Test: AMYLASE; Value: 38; Range: 25-115; Units: U/L; Status: F Lab Order: Basic Metabolic Profile; SPEC'M 03/18/16 16:54 Test: GLUCOSE, FASTING; Value: 95; Range: 70-105; Units: MG/DL; Status: F Test: BLOOD UREA NITROGEN; Value: 8; Range: 7-18; Units: MG/DL; Status: F Test: CREATININE FOR GFR; Value: 0.64; Range: 0.55-1.02; Units: MG/DL; Status: F Test: SODIUM LEVEL; Range: 136-145; Units: MEQ/L; Status: I Test: POTASSIUM SERUM; Range: 3.5-5.1; Units: MEQ/L; Status: I Test: CHLORIDE LEVEL; Range: 98-107; Units: MEQ/L; Status: I Test: CARBON DIOXIDE LEVEL; Range: 21-32; Units: MEQ/L; Status: I Test: ANION GAP; Range: 8-16; Units: MEQ/L; Status: I Test: CALCIUM LEVEL; Range: 8.5-10.1; Units: MG/DL; Status: I Test: GLOMERULAR FILTRATION RATE; Value: > 60.0; Range: >60; Status: F Test: SODIUM LEVEL; Value: 141; Range: 136-145; Units: MEQ/L; Status: F Test: POTASSIUM SERUM; Value: 3.8; Range: 3.5-5.1; Units: MEQ/L; Status: F Test: CHLORIDE LEVEL; Value: 107; Range: 98-107; Units: MEQ/L; Status: F Test: CARBON DIOXIDE LEVEL; Value: 26; Range: 21-32; Units: MEQ/L; Status: F Test: ANION GAP; Value: 8; Range: 8-16; Units: MEQ/L; Status: F Test: CALCIUM LEVEL; Value: 9.1; Range: 8.5-10.1; Units: MG/DL; Status: F Test Note: ; Units are mL/min/1.73 m2 Chronic Kidney Disease Staging per NKF: Stage I & II GFR >=60 Normal to Mildly Decreased Stage III GFR 30-59 Moderately Decreased Stage IV GFR 15-29 Severely Decreased Stage V GFR <15 Very Little GFR Left ESRD GFR <15 on PATENT LAW SPECIALIST Lab Order: CBC with Diff; SPEC'M 03/18/16 16:54 Test: WHITE BLOOD COUNT; Value: 10.1; Range: 4.0-10.0; Abnormal: Above high normal; Units: K/mm3; Status: F Test: RED BLOOD COUNT; Value: 5.06; Range: 4.00-5.40; Units: M/mm3; Status: F Test: HEMOGLOBIN; Value: 15.5; Range: 12.0-16.0; Units: g/dl; Status: F Test: HEMATOCRIT; Value: 46.4; Range: 36.0-47.0; Units: %; Status: F Test: MEAN CORPUSCULAR VOLUME; Value: 91.6; Range: 80.0-96.0; Units: fl; Status: F Test: MEAN CORPUSCULAR HEMOGLOBIN; Value: 30.5; Range: 27.0-33.0; Units: pg; Status: F Test: MEAN CORPUSCULAR HGB CONC; Value: 33.3; Range: 32.0-36.5; Units: g/dl; Status: F Test: RED CELL DISTRIBUTION WIDTH; Value: 12.6; Range: 11.5-14.5; Units: %; Status: F Test: PLATELET COUNT, AUTOMATED; Value: 294; Range: 150-450; Units: k/mm3; Status: F Test: NEUTROPHILS %; Value: 65.5; Range: 36.0-66.0; Units: %; Status: F Test: LYMPH %; Value: 27.8; Range: 24.0-44.0; Units: %; Status: F Test: MONO %; Value: 3.8; Range: 0.0-5.0; Units: %; Status: F Test: EOS %; Value: 1.1; Range: 0.0-3.0; Units: %; Status: F Test: BASO %; Value: 0.4; Range: 0.0-1.0; Units: %; Status: F Test: LARGE UNSTAINED CELL %; Value: 1.4; Range: 0.0-4.0; Units: %; Status: F Test: NEUTROPHILS #; Value: 6.6; Range: 1.8-7.7; Units: K/mm3; Status: F Test: LYMPH #; Value: 2.8; Range: 1.5-4.5; Units: K/mm3; Status: F Test: MONO #; Value: 0.4; Range: 0.0-0.8; Units: K/mm3; Status: F Test: EOS #; Value: 0.1; Range: 0.0-0.50; Units: K/mm3; Status: F Test: BASO #; Value: 0.0; Range: 0.0-0.2; Units: K/mm3; Status: F Test: LARGE UNSTAINED CELL #; Value: 0.1; Range: 0.0-0.4; Units: K/mm3; Status: F Lab Order: Lipase; [facility] 03/18/16 16:54 Test: LIPASE; Value: 151; Range: 73-393; Units: U/L; Status: F Lab Order: Liver Profile; [facility]' 03/18/16 16:54 Test: AST/SGOT; Value: 26; Range: 15-37; Units: U/L; Status: F Test: ALT/SGPT; Value: 62; Range: 12-78; Units: U/L; Status: F Test: ALKALINE PHOSPHATASE; Value: 118; Range: 45-117; Abnormal: Above high normal; Units: U/L; Status: F Test: BILIRUBIN,TOTAL; Value: 0.3; Range: 0.2-1.0; Units: MG/DL; Status: F Test: BILIRUBIN,DIRECT; Value: < 0.1; Range: 0.0-0.2; Units: MG/DL; Status: F Test: TOTAL PROTEIN; Value: 7.6; Range: 6.4-8.2; Units: GM/DL; Status: F Test: ALBUMIN; Value: 3.9; Range: 3.2-5.2; Units: GM/DL; Status: F Test: ALBUMIN/GLOBULIN RATIO; Value: 1.05; Range: 1.00-1.93; Status: F Lab Order: Urinalysis; SPEC'M 03/18/16 18:21 Test: APPEARANCE, URINE; Value: CLOUDY; Range: CLEAR; Abnormal: Above high normal; Status: F Test: COLOR, URINE; Value: YELLOW; Range: YELLOW; Status: F Test: PH,URINE; Value: 6.0; Range: 5.0-9.0; Units: UNITS; Status: F Test: SPECIFIC GRAVITY URINE AUTO; Value: 1.017; Range: 1.002-1.035; Status: F Test: PROTEIN, URINE AUTO; Value: NEGATIVE; Range: NEGATIVE; Units: mg/dL; Status: F Test: GLUCOSE, URINE (UA) AUTO; Value: NEGATIVE; Range: NEGATIVE; Units: mg/dL; Status: F Test: KETONE, URINE AUTO; Value: NEGATIVE; Range: NEGATIVE; Units: mg/dL; Status: F Test: UROBILINOGEN, URINE AUTO; Value: 0.2; Range: 0.0-2.0; Units: mg/dL; Status: F Test: BILIRUBIN, URINE AUTO; Value: NEGATIVE; Range: NEGATIVE; Status: F Test: NITRITE, URINE AUTO; Value: NEGATIVE; Range: NEGATIVE; Status: F Test: LEUKOCYTE ESTERASE, URINE AUTO; Value: 3+; Range: NEGATIVE; Abnormal: Above high normal; Status: F Test: BLOOD, URINE BLOOD; Value: 1+; Range: NEGATIVE; Abnormal: Above high normal; Status: F Test: WBC, URINE AUTO; Value: 4; Range: 0-3; Abnormal: Above high normal; Units: /HPF; Status: F Test: RBC, URINE AUTO; Value: 5; Range: 0-3; Abnormal: Above high normal; Units: /HPF; Status: F Test: BACTERIA, URINE AUTO; Value: 1+; Range: NEGATIVE; Abnormal: Above high normal; Status: F Test: SQUAMOUS EPITHELIAL CELL UR AU; Value: 23; Range: 0-6; Units: /HPF; Status: F Test: MUCUS, URINE; Value: SMALL; Range: NEGATIVE; Status: F Test: HYALINE CAST, URINE AUTO; Value: 0; Range: 0-1; Units: /LPF; Status: F Test: AMORPHOUS SEDIMENT; Value: SMALL; Range: NEGATIVE; Abnormal: Above high normal; Status: F Lab Order: Urine Culture; SPEC'M 03/18/16 18:21 Test: URINE CULTURE; Value: URINE CULTURE RESULT NO GROWTH; Status: F Lab Order: HCG,Serum Qualitative; SPEC'M 03/18/16 16:54 Test: HCG, SERUM QUALITATIVE; Value: NEGATIVE; Range: NEGATIVE; Status: F Radiology Order: CT ABD & PELVIS: IV Contrast Only Test: CT ABD & PELVIS: IV Contrast Only REASON FOR EXAMINATION: Abdomen Pain; ; CLINICAL HISTORY: Abdominal pain.; ; TECHNIQUE: Multiple axial CT images were obtained through the abdomen and pelvis after administratio; n of intravenous contrast material.; ; FINDINGS:; Comparison is made with the prior study dated 09/28/2014. The liver is of uniform attenuation without; mass or defect. There is no intra or extrahepatic biliary ductal dilatation. The spleen is normal.; The gallbladder is within normal limits. The pancreas is of normal contour and attenuation charact; eristics. A 12 mm nodule is present in the left adrenal gland most compatible with an adenoma. This; was present on the prior examination.; ; Both kidneys demonstrate prompt and equal nephrograms. The kidneys are normal in size, shape and con; figuration. There is no evidence of renal or ureteral mass. No renal or ureteral calculi are identi; fied. There is no hydroureter or hydronephrosis.; ; The appendix is not identified. Surgical clips are present in the right lower quadrant. There is arcenio; dence of circumferential wall thickening involving fluid-filled loops of jejunum and ileum compatible; with enteritis. Infectious and inflammatory etiologies are considered. No evidence for small or larg; e bowel obstruction. There is no evidence of abdominal ascites or lymphadenopathy.; ; Uterus and ovaries are unremarkable.; ; There is no evidence of intrinsic or extrinsic bladder mass. There is no pelvic ascites or lymphaden; opathy.; ; Images of the lung bases show no evidence of pleural or parenchymal mass. There are no pleural effus; ions. The bony structures are free of lytic or blastic lesions. There is evidence of ossific fragmen; t adjacent to the superior anterior aspect of L3 vertebral body which may represent old trauma versus; a limbus vertebral body. Consider followup with MRI.; ; IMPRESSION:; 1. A 12 mm nodule is present in the left adrenal gland most compatible with an adenoma. This was pres; ent on the prior examination.; 2. There is evidence of circumferential wall thickening involving fluid-filled loops of jejunum and i; leum compatible with enteritis. Infectious and inflammatory etiologies are considered.; 3. There is evidence of ossific fragment adjacent to the superior anterior aspect of L3 vertebral bod; y which may represent old trauma versus a limbus vertebral body. Consider followup with MRI.; ; Thank you for your kind referral of this patient. We appreciate the opportunity to participate in our [facility]; s patient's care.; ; ; ; Outcome: 20:15 Discharge ordered by Provider. ck7 20:36 Discharge Assessment: Patient awake and alert. obeys commands, Oriented to person, ead place and time. patient administered narcotics - yes. Pt provided with safe discharge. The following High Risk Discharge criteria are identified: None. Discharged to home ambulatory, with parent. Condition: improved. Discharge instructions given to patient, parents Instructed on discharge instructions, follow up and referral plans. medication usage, Demonstrated understanding of instructions, medications, Pt was receptive of discharge instructions/ teaching. Prescriptions given X 3. CT Study completed. Property sent home with patient. 20:37 Patient left the ED. ead Signatures: Dispatcher [employer] EDMS Heather Maynard RN RN kcs Michelson, Staci, RN RN srm Minerva Watson, FIELD CLERK FIELD CLERK jam1 Deepika Rivas, Reg Reg gb Marcia, Teodora, FIELD CLERK FIELD CLERK ar3 Ilsa Eugene Christopher, RPA-C RPA-Cck7 Momo Monsalve gr2 Vaishnavi Jade RN RN [email or web address] Stefany Bai RN RN Davey Garicas,IAN RN mb9 Katlyn Scott, Reg Reg ks16 Corrections: (The following items were deleted from the chart) 14:51 14:45 Presenting complaint: kcs kcs Chart Complete MTDD
--- NOTE | 2016-03-20 21:39 | EDDOCDS ---
Physician Documentation [facility] Name: Albertina Mota Age: 41 yrs Sex: Female : 1975 Arrival Date: 03/18/2016 Time: 14:21 Bed I4 / M4 Private MD: Daren Brasher MD Disposition: 03/18/16 20:15 Discharged to Home/Self Care. Impression: Other specified noninfective gastroenteritis and colitis. - Condition is Stable. - Discharge Instructions: Diarrhea, Nausea and Vomiting. - Prescriptions for Flagyl 500 mg Oral Tablet - take 1 tablet by ORAL route every 8 hours for 10 days; 30 tablet. Prednisone 20 mg Oral Tablet - take 1 tablet by ORAL route once daily for 5 days; 5 tablet. ZOFRAN ODT 4 mg - dissolve 1 tablet by ORAL route 4 times per day As needed do not chew, do not swallow whole; 10 tablet. - Medication Reconciliation, Local Pharmacy Hours form. - Follow up: Daren Brasher; When: 2 - 3 days; Reason: Recheck today's complaints, Continuance of care. - Problem is new. - Symptoms have improved. - Notes: USE MEDICATION INSTRUCTED, FOLLOW UP WITH YOUR DOCTOR IN 2-3 DAYS, RETURN TO THE ER IF THE SYMPTOMS WORSEN OR BECOME CONCERNING Historical: - Allergies: Adhesives; Latex; Methocarbamol; Nickel; old chart says daphnie and piero; - Home Meds: 1. Ambien 10 mg Oral tab once daily 2. amitriptyline 50 mg Oral tab nightly 3. baclofen 10 mg Oral tab twice a day 4. hydrocodone-acetaminophen 7.5-325 mg Oral tab 1 tab every 4-6 hours 5. ibuprofen 600 mg Oral tab as needed 6. levothyroxine 25 mcg Oral cap once daily 7. lidocaine 4 % on back as needed - PMHx: chronic neck and back pain; Seasonal Allergies; Seizure Disorder; - PSHx: Appendectomy; Tubal ligation; cyst removed off her ovary; neck fusion; - Social history: Smoking status: Patient uses tobacco products, light tobacco smoker. No barriers to communication noted, The patient speaks fluent Divehi. - Family history: Not pertinent. - : The pt / caregiver states he / she is not on anticoagulants. Home medication list is obtained from family members, [employer] import data. - Exposure Risk Screening:: None identified. 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 6 in. (167.64 cm) (R); Pain 6/10; 17:46 BP 120 / 82; Pulse 79; Resp 20; Temp 99.5; Pulse Ox 97% ; Pain 9/10; jam1 19:40 BP 124 / 85; Pulse 74; Resp 18; Temp 99.3; Pulse Ox 95% ; ajs 20:35 BP 117 / 75; Pulse 78; Resp 16; Temp 97.9(O); Pulse Ox 98% on R/A; Pain 5/10; ead 14:24 Body Mass Index 38.09 (107.05 kg, 167.64 cm) gr2 19:40 When pt was asked her pain level she replied "I dont think it really matters anymore" s MDM: 15:58 Undress patient appropriately for examination ordered. ck7 15:58 IV Saline Lock ordered. ck7 15:58 NS 0.9% 1000 ml IV at bolus once ordered. ck7 15:58 Ondansetron 4 mg IVP once ordered. ck7 15:58 pantoprazole 40 mg IV at bolus once ordered. ck7 15:58 morphine 4 mg IVP once ordered. ck7 16:00 Amylase Ordered. EDMS 16:00 Basic Metabolic Profile Ordered. EDMS 16:00 CBC with Diff Ordered. EDMS 16:00 Lipase Ordered. EDMS 16:00 Liver Profile Ordered. EDMS 16:00 Urinalysis Ordered. EDMS 16:00 HCG,Serum Qualitative Ordered. EDMS 16:00 Urine Culture Ordered. EDMS 16:00 NOTHING BY MOUTH+DIET ordered. EDMS 17:53 CBC with Diff Reviewed. ck7 17:53 Liver Profile Reviewed. ck7 17:53 Amylase Reviewed. ck7 17:53 Basic Metabolic Profile Reviewed. ck7 17:53 Lipase Reviewed. ck7 17:53 HCG,Serum Qualitative Reviewed. ck7 17:54 CT ABD & PELVIS: IV Contrast Only Ordered. EDMS 19:13 Urinalysis Reviewed. ck7 19:15 Financial registration complete. ks16 20:08 Fluid Challenge ordered. ck7 20:11 CT ABD & PELVIS: IV Contrast Only Reviewed. ck7 20:14 HYDROcodone-acetaminophen 5 mg-325 mg 1 tabs PO once ordered. ck7 23:10 [facility] Payment Agreement was scanned into [employer] and attached to record. 03/19 00:30 ED course: dr brasher faxed formal report of ct abd/p for fu mlg. ml 09:26 T-Sheet-- Draft Copy was scanned into [employer] and attached to record. gb Administered Medications: 03/18 17:17 Drug: NS 0.9% 1000 ml [sodium chloride 0.9 % intravenous solution] Route: IV; Rate: mk4 bolus; Site: left antecubital; 18:15 Follow up: IV Status: Completed infusion; IV Intake: 1000ml ead 17:17 Drug: Ondansetron 4 mg Route: IVP; Site: left antecubital; mk4 17:17 Drug: pantoprazole 40 mg [pantoprazole 40 mg intravenous solution] Route: IV; Rate: mk4 bolus; Site: left antecubital; 17:17 Drug: morphine 4 mg [morphine 4 mg/mL intravenous cartridge (1 mL)] Route: IVP; Site: mk4 left antecubital; 20:18 Drug: HYDROcodone-acetaminophen 1 tabs [hydrocodone 5 mg-acetaminophen 325 mg tablet (1 ead tabs)] Route: PO; 20:35 Follow up: Response: Confirmed pt not driving.; No Adverse Reaction; Pain is decreased ead Signatures: Dispatcher [employer] EDMS Barb Doan MD MD ml Sleeman, Kacey RN Deepika Abraham, Reg Reg gb Loy Galindo, ALEXA-C RPA-Cck7 Vaishnavi Jade RN RN mk4 Stefany Bai RN RN eaKatlyn Castellanos, Reg Reg ks16 The chart was reviewed and I authenticate all verbal orders and agree with the evaluation and treatment provided.Attachments: 23:10 [facility] Payment Agreement 03/19 09:26 T-Sheet-- Draft Copy gb Chart Complete MTDD
== END 2016-03-18 20:37 | disposition home or self-care (01) ==
LOC: M ED 14:21
DX: K52.9 Noninfective gastroenteritis and colitis, unspecified (principal); J30.9 Allergic rhinitis, unspecified; G40.909 Epilepsy, unspecified, not intractable, without status epilepticus; F17.210 Nicotine dependence, cigarettes, uncomplicated; Z79.899 Other long term (current) drug therapy; Z88.8 Allergy status to other drugs, medicaments and biological substances; Z91.040 Latex allergy status
CPT/HCPCS: 36415; 74177; 80048; 80076; 81001; 82150; 83690; 84703; 85025; 87086; 96361; 96374; 96375; 99284; C9113; J2405; Q9967

== ENCOUNTER → 2016-05-09 | Outpatient (CLI) | payer OTHER ==
--- NOTE | 2016-05-10 00:07 | ECWPNPC ---
PATIENT NAME: JOSEPH AVILEZ : 1975 GENDER: FEMALE VISIT DATE: 05/09/2016 DISCHARGE DATE: 05/09/16 1044 VISIT LOCKED DATE TIME: PHYSICIAN: MANSI VERA PHYSICIAN PAGER NO: TEXT TO [phone] RESOURCE: MANSI VERA REASON FOR APPOINTMENT 1. NECK/BACK HISTORY OF PRESENT ILLNESS HISTORY OF PRESENT ILLNESS: PAIN THE PATIENT DESCRIBES THE PAIN... FALL RISK SCREENING: SCREENING :NO FALLS IN THE PAST YEAR TODAY'S VISIT: NOTES: RATES PAIN TODAY 7/10. NOTES PAIN IS CONSTANT, ACHING, SHARP AND STAPPING TENDER AND SHOOTING PAIN IS CENTERED LOW BACK RADIATING TO RIGHT LEG, AND ACROSS THE SHOULDERS.STATES SHE FEELS LIKE A BRAND NEW PERSON AND IS BETTER ABLE TO DEAL WITH THE PAIN. REPORTS SHE IS VERY PLEEAASED SHE CAN RAISE HER ARMS ABOVE HER HEADAND HAS BEEN ABLE TO BE ACTIVE AROUND HER HOME.. CURRENT MEDICATIONS TAKING ZOLOFT 100 MG TABLET 2 TABS ORALLY ONCE A DAY TAKING IBUPROFEN 600 MG TABLET 1 TABLET ORALLY THREE TIMES A DAY NEEDED TAKING BACLOFEN 10 MG TABLET 2 TABS ORALLY ONCE DAILY TAKING AMITRIPTYLINE HCL 50 MG TABLET 1 TABLET ORALLY ONCE A DAY TAKING REFRESH OPTIVE 0.5-0.9 % SOLUTION OPHTHALMIC TAKING AMBIEN 10 MG TABLET 1 TAB(S) ORAL DAILY NEEDED TAKING LIDOCAINE 4 % CREAM DIRECTED EXTERNALLY Q 6 HOURS TO PAINFUL AREAS LOW BACK AND NECK TAKING GABAPENTIN 300 MG CAPSULE 1 CAPSULE ORALLY THREE TIMES A DAY TAKING NORCO 10-325 MG TABLET 1 TABLET NEEDED ORALLY EVERY 6 HRS PRN PAIN MDD=3 TAKING NYSTATIN [id number] UNIT/GM POWDER 1 NULL TO AFFECTED AREA EXTERNALLY TWICE A DAY TAKING LEVOTHYROXINE SODIUM 25 MCG TABLET 1 TABLET ORALLY ONCE A DAY NOT-TAKING VALIUM 5 MG TABLET 1 TABLET NEEDED ORALLY EVERY 8 HOURS NEEDED NOT-TAKING FLAGYL 500 MG TABLET 1 TABLET ORALLY EVERY 8 HRS NOT-TAKING ZOFRAN ODT 4 MG TABLET DISPERSIBLE 1 TABLET ON THE TONGUE AND ALLOW TO DISSOLVE ORALLY EVERY 8 HRS NOT-TAKING DIAZEPAM 5 MG TABLET 1 TABLET NEEDED ORALLY BEFORE BEDTIME NOT-TAKING NORCO 7.5-325 MG TABLET 1 TABLET NEEDED ORALLY EVERY 8-12 HRS PRN PAIN MDD=2 NOT-TAKING HYDROCODONE-ACETAMINOPHEN 7.5-325 MG TABLET 1 TABLET NEEDED ORALLY IAKE 1 PO DAILY FOR SEVERE PAIN ONLY MDD 1 NOT-TAKING ROLLER WALKER - MISCELLANEOUS DIRECTED WITH WHEELS, SEAT AND BRAKE NOT-TAKING ZYRTEC ALLERGY 10 MG TABLET 1 TABLET NEEDED ORALLY ONCE A DAY, NOTES: NONE RECENTLY NOT-TAKING ZONISAMIDE 100 MG CAPSULE 1 CAPSULE ORALLY ONCE A DAY, NOTES: NOT TAKING ANY LONGER NOT-TAKING BACLOFEN 10 MG TABLET 1 TABLET WITH FOOD OR MILK ORALLY THREE TIMES A DAY, NOTES: 07-04-15 2100 NOT-TAKING VALIUM 10 MG TABLET 1 TABLET ORALLY TAKE I TAB ON ARRIVAL FOR PROCEDURE, NOTES: 07-05-15 1300 NOT-TAKING PERCOCET 5-325 MG TABLET 1 TABLET ORALLY TAKE ON ARRIVAL TO CLINIC FOR PROCEDURE, NOTES: 07-05-15 1300 MEDICATION LIST REVIEWED AND RECONCILED WITH THE PATIENT PAST MEDICAL HISTORY 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 ETT [facility] 04/30 NEG ISCHEMIA ECHO [facility]- 04/30- NML SYST AND DIASTOLIC FUNCTION 11/27 NSR, RARE ISOLATED PAC. EEG 09/15/14- NO EPILEPTIFORM ACTIVITY RATHKE'S CLEFT CYST- NCN FOLLOWING-REFERRED TO ENDOCRINOLOGY ALLERGIES EFFEXOR: WILD MOOD CHANGES MELA TO BIPOLAR I: SIDE EFFECTS LATEX (FOR ALLERGY USE ONLY): RASH: ALLERGY METHOCARBAMOL: LOWERS SEIZURE THRESHOLD: SIDE EFFECTS ADHESIVE: HIVES: ALLERGY SOCIAL HISTORY GENERAL: TOBACCO USE ARE YOU A:NONSMOKER LEARNING BARRIERS / SPECIAL NEEDS ORIENTED TO PLAN OF CARE: PATIENT, PAIN MANAGEMENT PATIENT, ORIENTED TO PLAN OF CARE: PATIENT, PAIN MANAGEMENT PATIENT. NEW PATIENT PAIN DIARY TODAY'S VISITNOTES FROM 0-10, WHAT LEVEL IS YOUR PAIN TODAY?0 PAIN CLINIC PFS, CLERGY, PUBLIC HEALTH REFERRALS PFS REFERRAL NEEDED?NO CLERGY REFERRAL NEEDED?NO PUBLIC HEALTH REFERRAL NEEDED?NO WAS THE PROVIDER NOTIFIED OF ANY PERTINENT INFO?NO PFS REFERRAL NEEDED?NO CLERGY REFERRAL NEEDED?NO PUBLIC HEALTH REFERRAL NEEDED?NO WAS THE PROVIDER NOTIFIED OF ANY PERTINENT INFO?NO REVIEW OF SYSTEMS CONSTITUTIONAL: ANY CHANGE IN YOUR MEDICAL CONDITION? NO . CHILLS NO . FEVER NO . INFECTION: DO YOU HAVE NEW INFECTIONS? NO . DO YOU HAVE HISTORY OF MRSA? NO . MUSCULOSKELETAL: ANY NEW PATTERNS OF PAIN OR NUMBNESS? YES NEW GOING DOWN THE RIGHT TO MIDDLE FINGER . GASTROENTEROLOGY: GENERAL RECENT GI BUG WITH N/V/D. WENT TO ER FOR THIS AND WAS GIVEN ABX AND FLUIDS . ANY NEW CHANGE IN BOWEL CONTROL? NO . GENITOURINARY: ANY NEW CHANGE IN BLADDER CONTROL? NO . IS THERE A CHANCE YOU COULD BE ? NO . HEMATOLOGY/LYMPH: DO YOU TAKE ANY BLOOD THINNERS? (FOR EXAMPLE- COUMADIN, PLAVIX, AGGRENOX, PLATEL, PRADAXA, OR XARELTO) NO . WHEN WAS YOUR LAST DOSE? DATE: TIME: . NEUROLOGY: HAVE YOU FALLEN IN THE PAST 6 MONTHS? NO . ANY NEW EXTREMITY NUMBNESS OR WEAKNESS? NO . CARDIOLOGY: DO YOU HAVE A PACEMAKER OR DEFIBRILLATOR? NO . RESPIRATORY: HAVE YOU BEEN SICK IN THE PAST WEEK? NO . FEVER NO . FLU LIKE SYMPTOMS? NO . COUGH NO . INTEGUMENTARY: DO YOU HAVE ANY RASHES OR OPEN SORES? NO . ALLERGIC/IMMUNO: ARE YOU ALLERGIC TO SHELLFISH OR IV DYE? NO . ANY NEW ALLERGIES? NO . PSYCHIATRIC: DO YOU HAVE THOUGHTS OF HURTING YOURSELF OR SOMEONE ELSE? NO . ARE YOU ABUSED, NEGLECTED, OR IN AN UNSAFE ENVIRONMENT? NO . ENDOCRINOLOGY: ARE YOU DIABETIC? NO . OTHER: DO YOU NEED ANY PRESCRIPTIONS? NO . IF YES, PLEASE LIST: ____ . ANY NEW PROBLEMS WITH YOUR MEDICATIONS? NO . WHEN DID YOU LAST EAT? ____ . WHEN DID YOU LAST DRINK? ____ . WHAT DID YOU LAST DRINK? ____ . NAME OF PERSON DRIVING YOU HOME? ____ . DO YOU HAVE ANY OTHER QUESTIONS OR CONCERNS NO . PSYCHOLOGY: SLEEP DISTURBANCES MUCH IMPROVED SLEEP WITH AMBIEN PER BH. . REVIEWED BY: PROVIDER: MANSI CUEVAP . VITAL SIGNS WT 237 LBS, HT 65 IN, BMI 39.43 INDEX, BP 122/77 MM HG, HR 81 /MIN, RR 18 /MIN, TEMP 97.1 F, OXYGEN SAT % 95%, NA INITIALS SC 10:06, REVIEWED BY: KG. EXAMINATION GENERAL EXAMINATION: PSYCHALERT , ORIENTED X 3 , APPROPRIATE MOOD AND AFFECT , SMILING AND TALKATIVE. LUNGS:CLEAR TO AUSCULTATION BILATERALLY. HEART:HEART RATE REGULAR. MUSCULOSKELETAL:TRIGGER POINTS:, ELICITED WITH PALPATION OVER LUMBAR PARAVERTEBRAL MUSCLES AND INTO THE SECRUM. RESTRICTION OF ROM IN THIS AREA, TRIGGER POINTS:, ELICITED WITH PALPATION OVER CERVICAL SPINOUS PROCESSES AND ACROSS THE TRAPEZIUS MUSCLES BILATERALLY. MINIMAL RESTRICTION OF ROM IS NOTED. SLOW TO RISE TO STANDING POSITION. GAIT SLOW BUT NONANTALGIC. NEUROLOGIC EXAM:ALERT, ALERT AND ORIENTED X 3. 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 PROCEDURE CODES FA211 ESTABILISHED PATIENT [facility] CHARGE DISPOSITION & COMMUNICATION FOLLOW UP 6 WEEKS ELECTRONICALLY SIGNED BY KENNY JACOBS ON 05/09/2016 AT 11:23 AM EST DISCLAIMER : THIS IS A VISIT SUMMARY EXTRACTED FROM THE [employer] CHART. IT IS NOT A COPY OF THE [employer] PROGRESS NOTE. ED
== END ==
LOC: M PAIN 10:00
PROVIDERS: ATTEND Nurse Practitioner Family
DX: M54.16 Radiculopathy, lumbar region (principal); R20.2 Paresthesia of skin; M54.40 Lumbago with sciatica, unspecified side; M54.2 Cervicalgia; M96.1 Postlaminectomy syndrome, not elsewhere classified; M51.36 Other intervertebral disc degeneration, lumbar region; Z79.891 Long term (current) use of opiate analgesic; Z79.899 Other long term (current) drug therapy; E03.9 Hypothyroidism, unspecified; F32.9 Major depressive disorder, single episode, unspecified; Z88.8 Allergy status to other drugs, medicaments and biological substances; Z91.040 Latex allergy status; Z91.048 Other nonmedicinal substance allergy status

== ENCOUNTER 2016-07-10 14:51 | Emergency (ER) | payer OTHER ==
[2016-07-10 14:51] VITALS: BP 127/83
[~2016-07-10 14:51] MED LIST changes: -AMIT50TA; -BACL10TA2; -GABA-282; -HYDR-3719; -LEVO25TA5; -LIDO1CRE2; -SERT-138; -TOPI1TAB31; -ZOLP10TA2
[2016-07-10] MEDS ORDERED: GABA-282 (15:04)
[2016-07-10] MEDS ORDERED: LEVO25TA5 (15:04)
[2016-07-10] MEDS ORDERED: LIDO1CRE2 (15:04)
[2016-07-10] MEDS ORDERED: BACL10TA2 (15:04)
[2016-07-10] MEDS ORDERED: TOPI1TAB31 (15:04)
[2016-07-10] MEDS ORDERED: SERT-138 (15:04)
[2016-07-10] MEDS ORDERED: AMIT50TA (15:04)
[2016-07-10] MEDS ORDERED: HYDR-3719 (15:04)
[2016-07-10] MEDS ORDERED: ZOLP10TA2 (15:04)
--- NOTE | 2016-07-12 08:34 | ECGEPIP ---
Stationary ECG Study [facility] - ED Test Date: 2016-07-10 Pat Name: JOSEPH AVILEZ Department: Room: - Gender: F Food Technician: JLeydi : 1975 Requested By: Nick Wakefield Order Number: [id number] Reading MD: Rhonda Marshall Measurements Intervals [place] Rate: 72 P: 7 KS: 152 QRS: 14 QRSD: 84 T: 10 QT: 364 QTc: 400 Interpretive Statements SINUS RHYTHM NSTTW ABNORMALITY NO PRIOR FOR COMPARISON Electronically Signed On 07-12-2016 8:34:18 EDT by Rhonda Marshall
== END 2016-07-10 15:40 | disposition home or self-care (01) ==
LOC: M ED 15:37
DX: R07.9 Chest pain, unspecified (principal); Z53.21 Procedure and treatment not carried out due to patient leaving prior to being seen by health care provider

== ENCOUNTER → 2016-07-10 | Outpatient (CLI) | payer OTHER ==
[~2016-07-10] MED LIST changes: +AMIT50TA; +BACL10TA2; +GABA-282; +HYDR-3719; +LEVO25TA5; +LIDO1CRE2; +SERT-138; +TOPI1TAB31; +ZOLP10TA2
[2016-07-10 15:36] LABS: ALBUMIN 3.8 GM/DL (3.2-5.2); ALBUMIN/GLOBULIN RATIO 1.03 (1.00-1.93); ALKALINE PHOSPHATASE 100 U/L (45-117); ALT/SGPT 19 U/L (12-78); ANION GAP 11 MEQ/L (8-16); AST/SGOT 11 U/L (15-37); BILIRUBIN,TOTAL 0.3 MG/DL (0.2-1.0); BLOOD UREA NITROGEN 10 MG/DL (7-18); CALCIUM LEVEL 8.4 MG/DL (8.5-10.1); CARBON DIOXIDE LEVEL 21 MEQ/L (21-32); CHLORIDE LEVEL 108 MEQ/L (98-107); CREATININE FOR GFR 0.78 MG/DL (0.55-1.02); FREE T4 1.12 NG/DL (0.76-1.46); GLOMERULAR FILTRATION RATE > 60.0 (>60); GLUCOSE, FASTING 121 MG/DL (70-105); POTASSIUM SERUM 3.6 MEQ/L (3.5-5.1); SODIUM LEVEL 140 MEQ/L (136-145); TOTAL PROTEIN 7.5 GM/DL (6.4-8.2)
== END ==
LOC: M LAB 14:28
PROVIDERS: ATTEND Nurse Practitioner Family
DX: E03.9 Hypothyroidism, unspecified (principal); R07.9 Chest pain, unspecified

== ENCOUNTER → 2016-07-21 | Outpatient (CLI) | payer OTHER ==
[~2016-07-21] MED LIST changes: +AMIT50TA; +BACL10TA2; +GABA-282; +HYDR-3719; +LEVO25TA5; +LIDO1CRE2; +SERT-138; +TOPI1TAB31; +ZOLP10TA2
--- NOTE | 2016-08-11 23:34 | ECWPNPC ---
PATIENT NAME: JOSEPH AVILEZ : 1975 GENDER: FEMALE VISIT DATE: 07/21/2016 DISCHARGE DATE: 07/21/16 1553 VISIT LOCKED DATE TIME: PHYSICIAN: MANSI VERA PHYSICIAN PAGER NO: TEXT DJ [phone] RESOURCE: MANSI VERA REASON FOR APPOINTMENT 1. NECK/BACK HISTORY OF PRESENT ILLNESS HISTORY OF PRESENT ILLNESS: PAIN THE PATIENT DESCRIBES THE PAIN... FALL RISK SCREENING: SCREENING :NO FALLS IN THE PAST YEAR TODAY'S VISIT: NOTES: RATES PAIN LEVEL TODAY 9/10. DESCRIBES PAIN CONSTANT, SHARP, STABBING, SHOOTING, ACHING, BURNING, TENDER AND THROBBING. PAIN IS CENTERED ACROSS SHOULDERS DOWN LEFT ARM AND IN BOTH LEGS. THIS STARTED 3 WEEKS AGO. THIS STARTED WITH ONSET OF BRONCHITIS AND CHEST PAIN.. CURRENT MEDICATIONS TAKING BACLOFEN 10 MG TABLET 2 TABS ORALLY ONCE DAILY, NOTES: PATIENT STATES 2 TABS ONCE DAILY 07/09/16 TAKING GABAPENTIN 300 MG CAPSULE 1 CAPSULE ORALLY THREE TIMES A DAY TAKING NORCO 10-325 MG TABLET 1 TABLET NEEDED ORALLY EVERY 6 HRS PRN PAIN MDD=3 TAKING NYSTATIN [id number] UNIT/GM POWDER 1 NULL TO AFFECTED AREA EXTERNALLY TWICE A DAY TAKING ZOLOFT 100 MG TABLET 2 TABS ORALLY ONCE A DAY TAKING IBUPROFEN 600 MG TABLET 1 TABLET ORALLY THREE TIMES A DAY NEEDED TAKING AMITRIPTYLINE HCL 50 MG TABLET 1 TABLET ORALLY ONCE A DAY TAKING REFRESH OPTIVE 0.5-0.9 % SOLUTION OPHTHALMIC TAKING AMBIEN 10 MG TABLET 1 TAB(S) ORAL DAILY NEEDED TAKING LIDOCAINE 4 % CREAM DIRECTED EXTERNALLY Q 6 HOURS TO PAINFUL AREAS LOW BACK AND NECK TAKING ZYRTEC ALLERGY 10 MG TABLET 1 TABLET NEEDED ORALLY ONCE A DAY TAKING LEVOTHYROXINE SODIUM 25 MCG TABLET 1 TABLET ORALLY ONCE A DAY TAKING TOPIRAMATE 100 MG TABLET 1 TABLET ORALLY EVERY NIGHT TIME TAKING VENTOLIN HFA 108 (90 BASE) MCG/ACT AEROSOL SOLUTION 2 PUFFS NEEDED INHALATION EVERY 4 HRS NOT-TAKING ZOFRAN ODT 4 MG TABLET DISPERSIBLE 1 TABLET ON THE TONGUE AND ALLOW TO DISSOLVE ORALLY EVERY 8 HRS NOT-TAKING ROLLER WALKER - MISCELLANEOUS DIRECTED WITH WHEELS, SEAT AND BRAKE DISCONTINUED FLAGYL 500 MG TABLET 1 TABLET ORALLY EVERY 8 HRS DISCONTINUED DIAZEPAM 5 MG TABLET 1 TABLET NEEDED ORALLY BEFORE BEDTIME DISCONTINUED NORCO 7.5-325 MG TABLET 1 TABLET NEEDED ORALLY EVERY 8-12 HRS PRN PAIN MDD=2 DISCONTINUED HYDROCODONE-ACETAMINOPHEN 7.5-325 MG TABLET 1 TABLET NEEDED ORALLY IAKE 1 PO DAILY FOR SEVERE PAIN ONLY MDD 1 DISCONTINUED ZONISAMIDE 100 MG CAPSULE 1 CAPSULE ORALLY ONCE A DAY, NOTES: NOT TAKING ANY LONGER DISCONTINUED BACLOFEN 10 MG TABLET 1 TABLET WITH FOOD OR MILK ORALLY THREE TIMES A DAY, NOTES: 07-04-15 2100 DISCONTINUED VALIUM 10 MG TABLET 1 TABLET ORALLY TAKE I TAB ON ARRIVAL FOR PROCEDURE, NOTES: 07-05-15 1300 DISCONTINUED PERCOCET 5-325 MG TABLET 1 TABLET ORALLY TAKE ON ARRIVAL TO CLINIC FOR PROCEDURE, NOTES: 07-05-15 1300 MEDICATION LIST REVIEWED AND RECONCILED WITH THE PATIENT PAST MEDICAL HISTORY 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 ETT [facility] 04/30 NEG ISCHEMIA ECHO [facility]- 04/30- NML SYST AND DIASTOLIC FUNCTION 11/27 NSR, RARE ISOLATED PAC. EEG 09/15/14- NO EPILEPTIFORM ACTIVITY RATHKE'S CLEFT CYST- NCN FOLLOWING-REFERRED TO ENDOCRINOLOGY ALLERGIES EFFEXOR: WILD MOOD CHANGES MELA TO BIPOLAR I: SIDE EFFECTS LATEX (FOR ALLERGY USE ONLY): RASH: ALLERGY METHOCARBAMOL: LOWERS SEIZURE THRESHOLD: SIDE EFFECTS ADHESIVE: HIVES: ALLERGY REVIEW OF SYSTEMS CONSTITUTIONAL: ANY CHANGE IN YOUR MEDICAL CONDITION? NO . CHILLS NO . FEVER NO . INFECTION: DO YOU HAVE NEW INFECTIONS? NO . DO YOU HAVE HISTORY OF MRSA? NO . MUSCULOSKELETAL: ANY NEW PATTERNS OF PAIN OR NUMBNESS? YES, LEFT ARM PINS AND NEEDLES AND ACHES AND WEAKNESS ALL THE TIME. BOTH LOWER LEG -. POOR CIRCULATION OF LOWER LEGS, FROM MID THIGH. SOME SWELLING. . GASTROENTEROLOGY: GENERAL BOWELS MOVING LESS FREQ AND NOTES INCREASED LOW BACK PAIN WITH EVACULATION . ANY NEW CHANGE IN BOWEL CONTROL? NO . GENITOURINARY: ANY NEW CHANGE IN BLADDER CONTROL? NO . IS THERE A CHANCE YOU COULD BE ? NO . HEMATOLOGY/LYMPH: DO YOU TAKE ANY BLOOD THINNERS? (FOR EXAMPLE- COUMADIN, PLAVIX, AGGRENOX, PLATEL, PRADAXA, OR XARELTO) NO . WHEN WAS YOUR LAST DOSE? DATE: TIME: . NEUROLOGY: HAVE YOU FALLEN IN THE PAST 6 MONTHS? NO . ANY NEW EXTREMITY NUMBNESS OR WEAKNESS? NO . CARDIOLOGY: DO YOU HAVE A PACEMAKER OR DEFIBRILLATOR? NO . RESPIRATORY: HAVE YOU BEEN SICK IN THE PAST WEEK? YES, HAD BRONCHITIS- PRESENTLY TAKING CIPRO AND PREDNISONE. . FEVER NO . FLU LIKE SYMPTOMS? NO . COUGH NO . INTEGUMENTARY: DO YOU HAVE ANY RASHES OR OPEN SORES? NO . ALLERGIC/IMMUNO: ARE YOU ALLERGIC TO SHELLFISH OR IV DYE? NO . ANY NEW ALLERGIES? NO . PSYCHIATRIC: DO YOU HAVE THOUGHTS OF HURTING YOURSELF OR SOMEONE ELSE? NO . ARE YOU ABUSED, NEGLECTED, OR IN AN UNSAFE ENVIRONMENT? NO . ENDOCRINOLOGY: ARE YOU DIABETIC? NO . OTHER: DO YOU NEED ANY PRESCRIPTIONS? YES . IF YES, PLEASE LIST: GABAPENTIN . ANY NEW PROBLEMS WITH YOUR MEDICATIONS? NO . WHEN DID YOU LAST EAT? ____ . WHEN DID YOU LAST DRINK? ____ . WHAT DID YOU LAST DRINK? ____ . NAME OF PERSON DRIVING YOU HOME? ____ . DO YOU HAVE ANY OTHER QUESTIONS OR CONCERNS YES, CIRCULATION, NEW PAIN & NUMBNESS. LOTS!!!! . REVIEWED BY: PROVIDER: MANSI RODRIGUEZ . VITAL SIGNS WT 223.6 LBS, HT 65 IN, BMI 37.20 INDEX, BP 113/67 MM HG, HR 86 /MIN, RR 16 /MIN, TEMP 98.1 F, OXYGEN SAT % 96%, NA INITIALS SC 15:11, REVIEWED BY: CM. EXAMINATION GENERAL EXAMINATION: PSYCHALERT , ORIENTED X 3 , APPROPRIATE MOOD AND AFFECT , SMILING AND TALKATIVE. CHEST:EXQ TENDERNESS IN LEFT AXILLA, . LUNGS:CLEAR TO AUSCULTATION BILATERALLY. HEART:HEART RATE REGULAR. MUSCULOSKELETAL:TRIGGER POINTS:, ELICITED WITH PALPATION OVER LUMBAR PARAVERTEBRAL MUSCLES AND INTO THE SECRUM. RESTRICTION OF ROM IN THIS AREA, TRIGGER POINTS:, ELICITED WITH PALPATION OVER CERVICAL SPINOUS PROCESSES AND ACROSS THE TRAPEZIUS MUSCLES BILATERALLY. MINIMAL RESTRICTION OF ROM IS NOTED. SLOW TO RISE TO STANDING POSITION. GAIT SLOW BUT NONANTALGIC. 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 IT IS NOT A COPY OF THE [employer] PROGRESS NOTE. JAYDEND
== END ==
LOC: M PAIN 14:40
PROVIDERS: ATTEND Nurse Practitioner Family
DX: G89.29 Other chronic pain (principal); M54.16 Radiculopathy, lumbar region; R20.2 Paresthesia of skin; E23.6 Other disorders of pituitary gland; M54.40 Lumbago with sciatica, unspecified side; F17.200 Nicotine dependence, unspecified, uncomplicated; Z79.891 Long term (current) use of opiate analgesic; Z79.899 Other long term (current) drug therapy; Z88.8 Allergy status to other drugs, medicaments and biological substances; Z91.040 Latex allergy status; Z91.048 Other nonmedicinal substance allergy status

== ENCOUNTER → 2016-08-12 | Outpatient (CLI) | payer OTHER ==
--- NOTE | 2016-08-12 15:24 | PFTRPT ---
Tech: James QUIÑONES RRT Age: 41 Sex: Female Race: Height: 66.00 Inches Weight: 223.00 Lbs BSA: 2.09 Diagnosis: R06.02 PULMONARY FUNCTION REPORT ORDERING PROVIDER: Clara Graham NP DATE OF SERVICE: 08/12/16 SPIROMETRY: Baseline study of excellent technical quality. Mild difficulty with effort. The forced vital capacity is normal. The FEV1 is in proportion. The obstructive index is, therefore, normal. FLOW VOLUME LOOP: The expiratory limb of the flow volume loop is normal. LUNG VOLUMES: The total lung capacity is normal. The residual volume is in proportion. DIFFUSION CAPACITY: The diffusion capacity is normal. HEMOGLOBIN: No hemoglobin available for correction. AIRWAY MECHANICS: Airways resistance and conductance are normal. IMPRESSION: Normal study. MTDD
== END ==
LOC: M CARPUL 14:43
PROVIDERS: ATTEND Nurse Practitioner Family
DX: R06.02 Shortness of breath (principal); F17.200 Nicotine dependence, unspecified, uncomplicated

== ENCOUNTER → 2016-09-04 | Outpatient (CLI) | payer OTHER ==
[~2016-09-04] MED LIST changes: +IBUP-1022 PO; -IBUP600T26 PO; +TOPI100T9; -TOPI1TAB31
--- NOTE | 2016-09-24 00:49 | ECWPNPC ---
PATIENT NAME: JOSEPH AVILEZ : 1975 GENDER: FEMALE VISIT DATE: 09/04/2016 DISCHARGE DATE: 09/04/16 1345 VISIT LOCKED DATE TIME: PHYSICIAN: MANSI VERA PHYSICIAN PAGER NO: HXCV RP [id number] RESOURCE: MANSI VERA REASON FOR APPOINTMENT 1. NECK AND BACK HISTORY OF PRESENT ILLNESS HISTORY OF PRESENT ILLNESS: PAIN THE PATIENT DESCRIBES THE PAIN... FALL RISK SCREENING: SCREENING :TWO OR MORE FALLS WITH INJURY IN THE PAST YEAR TODAY'S VISIT: NOTES: RATES PAIN TODAY 9/10. DESCRIBES PAIN CONSTANT, ACHING, BURNING SHARP/STABBING/SHOOTING TENDER AND THROBBING. PAIN IS CENTERD OVER NECK/SHOULDERS AND LOW BACK TO RIGHT HIP AREA. STATES TODAY IS A BAD DAY.STATES HAS HAD SEVERAL FALLS. STATES NOT SLEEPING WELL. IS HAVING STABBING PAIN RIGHT SACRUM. CURRENT MEDICATIONS TAKING GABAPENTIN 300 MG CAPSULE 1 CAPSULE ORALLY THREE TIMES A DAY TAKING BACLOFEN 10 MG TABLET 2 TABS ORALLY ONCE DAILY, NOTES: PATIENT STATES 2 TABS ONCE DAILY 07/09/16 TAKING NORCO 10-325 MG TABLET 1 TABLET NEEDED ORALLY EVERY 6 HRS PRN PAIN MDD=3 TAKING NYSTATIN [id number] UNIT/GM POWDER 1 NULL TO AFFECTED AREA EXTERNALLY TWICE A DAY TAKING ZOLOFT 100 MG TABLET 2 TABS ORALLY ONCE A DAY TAKING AMITRIPTYLINE HCL 50 MG TABLET 1 TABLET ORALLY ONCE A DAY TAKING REFRESH OPTIVE 0.5-0.9 % SOLUTION OPHTHALMIC TAKING AMBIEN 10 MG TABLET 1 TAB(S) ORAL DAILY NEEDED TAKING LIDOCAINE 4 % CREAM DIRECTED EXTERNALLY Q 6 HOURS TO PAINFUL AREAS LOW BACK AND NECK TAKING LEVOTHYROXINE SODIUM 25 MCG TABLET 1 TABLET ORALLY ONCE A DAY TAKING TOPIRAMATE 100 MG TABLET 1 TABLET ORALLY EVERY NIGHT TIME TAKING VENTOLIN HFA 108 (90 BASE) MCG/ACT AEROSOL SOLUTION 2 PUFFS NEEDED INHALATION EVERY 4 HRS TAKING SPACER/AERO CHAMBER MOUTHPIECE - MISCELLANEOUS DIRECTED - - TAKING ZYRTEC ALLERGY 10 MG TABLET 1 TABLET NEEDED ORALLY ONCE A DAY TAKING IBUPROFEN 600 MG TABLET 1 TABLET ORALLY THREE TIMES A DAY NEEDED NOT-TAKING ZOFRAN ODT 4 MG TABLET DISPERSIBLE 1 TABLET ON THE TONGUE AND ALLOW TO DISSOLVE ORALLY EVERY 8 HRS NOT-TAKING ROLLER WALKER - MISCELLANEOUS DIRECTED WITH WHEELS, SEAT AND BRAKE MEDICATION LIST REVIEWED AND RECONCILED WITH THE PATIENT PAST MEDICAL HISTORY 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 ETT [facility] 04/30 NEG ISCHEMIA ECHO [facility]- 04/30- NML SYST AND DIASTOLIC FUNCTION 11/27 NSR, RARE ISOLATED PAC. EEG 09/15/14- NO EPILEPTIFORM ACTIVITY RATHKE'S CLEFT CYST- NCN FOLLOWING-REFERRED TO ENDOCRINOLOGY ALLERGIES EFFEXOR: WILD MOOD CHANGES MELA TO BIPOLAR I: SIDE EFFECTS LATEX (FOR ALLERGY USE ONLY): RASH: ALLERGY METHOCARBAMOL: LOWERS SEIZURE THRESHOLD: SIDE EFFECTS ADHESIVE: HIVES: ALLERGY REVIEW OF SYSTEMS REVIEWED BY: PROVIDER: MANSI RODRIGUEZ . CONSTITUTIONAL: ANY CHANGE IN YOUR MEDICAL CONDITION? NO . CHILLS NO . FEVER NO . INFECTION: DO YOU HAVE NEW INFECTIONS? NO . DO YOU HAVE HISTORY OF MRSA? NO . MUSCULOSKELETAL: ANY NEW PATTERNS OF PAIN OR NUMBNESS? NO . GASTROENTEROLOGY: ANY NEW CHANGE IN BOWEL CONTROL? NO . GENITOURINARY: ANY NEW CHANGE IN BLADDER CONTROL? NO . IS THERE A CHANCE YOU COULD BE ? NO . HEMATOLOGY/LYMPH: DO YOU TAKE ANY BLOOD THINNERS? (FOR EXAMPLE- COUMADIN, PLAVIX, AGGRENOX, PLATEL, PRADAXA, OR XARELTO) NO . WHEN WAS YOUR LAST DOSE? DATE: TIME: . NEUROLOGY: HAVE YOU FALLEN IN THE PAST 6 MONTHS? NO . ANY NEW EXTREMITY NUMBNESS OR WEAKNESS? NO . CARDIOLOGY: DO YOU HAVE A PACEMAKER OR DEFIBRILLATOR? NO . RESPIRATORY: HAVE YOU BEEN SICK IN THE PAST WEEK? NO . FEVER NO . FLU LIKE SYMPTOMS? NO . COUGH NO . INTEGUMENTARY: DO YOU HAVE ANY RASHES OR OPEN SORES? NO . ALLERGIC/IMMUNO: ARE YOU ALLERGIC TO SHELLFISH OR IV DYE? NO . ANY NEW ALLERGIES? NO . PSYCHIATRIC: DO YOU HAVE THOUGHTS OF HURTING YOURSELF OR SOMEONE ELSE? NO . ARE YOU ABUSED, NEGLECTED, OR IN AN UNSAFE ENVIRONMENT? NO . ENDOCRINOLOGY: ARE YOU DIABETIC? NO . OTHER: DO YOU NEED ANY PRESCRIPTIONS? YES . IF YES, PLEASE LIST: ____ . ANY NEW PROBLEMS WITH YOUR MEDICATIONS? NO . WHEN DID YOU LAST EAT? ____ . WHEN DID YOU LAST DRINK? ____ . WHAT DID YOU LAST DRINK? ____ . NAME OF PERSON DRIVING YOU HOME? ____ . DO YOU HAVE ANY OTHER QUESTIONS OR CONCERNS NO . VITAL SIGNS WT 216 LBS, HT 65 IN, BMI 35.94 INDEX, BP 106/69 MM HG, HR 73 /MIN, RR 16 /MIN, TEMP 97.0 F, OXYGEN SAT % 96%, SAFE IN ENV? (Y/N) YES, NA INITIALS ND 12:59, REVIEWED BY: VD. EXAMINATION GENERAL EXAMINATION: PSYCHALERT , ORIENTED X 3 , APPROPRIATE MOOD AND AFFECT , SMILING AND TALKATIVE. LUNGS:CLEAR TO AUSCULTATION BILATERALLY. HEART:HEART RATE REGULAR. MUSCULOSKELETAL:TRIGGER POINTS:, ELICITED WITH PALPATION OVER LUMBAR PARAVERTEBRAL MUSCLES AND INTO THE SECRUM. RESTRICTION OF ROM IN THIS AREA, TRIGGER POINTS:, ELICITED WITH PALPATION OVER CERVICAL SPINOUS PROCESSES AND ACROSS THE TRAPEZIUS MUSCLES BILATERALLY. MINIMAL RESTRICTION OF ROM IS NOTED. SLOW TO RISE TO STANDING POSITION. GAIT SLOW BUT NONANTALGIC. 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 TALK TO PRIMARY ABOUT SUDDEN FALLING ASLEEP. CLINICAL NOTES: ISTOP REGISTRY REVIEWED AND DEMNOSTRATES COMPLLIANCE. BRINGS IN MEDICATIONS WHICH IS APPROPRIATE FOR WHAT WAS DISPENSED. RECENT URINE TOXICOLOGY REVIEWED. NO UNAUTHORIZED MEDICATIONS. NO ILLICIT SUBSTANCES AND PRESCRIBED MEDICATIONS WERE PRESENT. PREVENTIVE MEDICINE SIJ INFORMATION GIVEN AND REVIEWED. PROCEDURE CODES FA211 ESTABILISHED PATIENT [facility] FACILITY CHARGE DISPOSITION & COMMUNICATION FOLLOW UP AFTER INJECTION (REASON: CHECK AUTH FOR SIJ) ELECTRONICALLY SIGNED BY KENNY JACOBS ON 09/23/2016 AT 06:02 PM EDT DISCLAIMER : THIS IS A VISIT SUMMARY EXTRACTED FROM THE [employer] CHART. IT IS NOT A COPY OF THE [employer] PROGRESS NOTE. ED
== END ==
LOC: M PAIN 11:20
PROVIDERS: ATTEND Nurse Practitioner Family
DX: M54.16 Radiculopathy, lumbar region (principal); R20.2 Paresthesia of skin; M54.40 Lumbago with sciatica, unspecified side; M54.2 Cervicalgia; Z79.899 Other long term (current) drug therapy; Z79.891 Long term (current) use of opiate analgesic; Z88.8 Allergy status to other drugs, medicaments and biological substances; Z91.040 Latex allergy status; Z91.048 Other nonmedicinal substance allergy status; E03.9 Hypothyroidism, unspecified; F32.9 Major depressive disorder, single episode, unspecified; R40.0 Somnolence

== ENCOUNTER 2016-09-05 11:45 | Emergency (ER) | payer OTHER ==
[~2016-09-05] VITALS: Ht 167.6 cm; Wt 98.0 kg
[2016-09-05] MEDS ORDERED: DERMABOND TOPICAL SKIN ADHESIVE TOP ONE (12:15)
[2016-09-05] MEDS ORDERED: MORPHINE 2 MG/ML 1ML SYRINGE IV ONE (12:15)
[2016-09-05] MEDS ORDERED: ADACEL/BOOSTRIX VACCINE (DIPHTH/PERTUSS/ACELL/TETANUS)0.5ML SYR (90715) IM ONE (12:30)
--- NOTE | 2016-09-05 13:05 | REP ---
REASON: Trauma. COMPARISON: 04/27/2010 which was normal. TECHNIQUE: 4.5 mm contiguous transaxial sections were obtained from the skull base to the cerebral convexities with thin cuts through the posterior fossa without the administration of intravenous contrast. FINDINGS: The ventricles and sulci are consistent with the patient's age. There are no extra-axial fluid collections. There is no mass effect. The deep cerebral white matter is consistent with the patient's age. The orbital and petrous structures, cerebellopontine angles, and posterior fossa are unremarkable. The sella turcica, cavernous, and paracavernous structures are essentially unremarkable. The visualized portions of the paranasal sinuses and mastoid air cells are clear. Images of the skull base show no gross abnormality. IMPRESSION: Essentially unremarkable CT examination of the brain. Signed by Brandon Carrasco DO 09/05/2016 01:43 P
[2016-09-05 13:06] LABS: BASO % 0.4 % (0.0-1.0); EOS # 0.1 K/mm3 (0.0-0.50); EOS % 1.2 % (0.0-3.0); LARGE UNSTAINED CELL # 0.1 K/mm3 (0.0-0.4); LARGE UNSTAINED CELL % 0.9 % (0.0-4.0); LYMPH # 1.9 K/mm3 (1.5-4.5); LYMPH % 27.1 % (24.0-44.0); MEAN CORPUSCULAR HEMOGLOBIN 31.5 pg (27.0-33.0); MEAN CORPUSCULAR HGB CONC 33.1 g/dl (32.0-36.5); MEAN CORPUSCULAR VOLUME 95.1 fl (80.0-96.0); MONO # 0.3 K/mm3 (0.0-0.8); NEUTROPHILS # 4.5 K/mm3 (1.8-7.7); NEUTROPHILS % 66.4 % (36.0-66.0); PLATELET COUNT, AUTOMATED 242 k/mm3 (150-450); RED CELL DISTRIBUTION WIDTH 13.3 % (11.5-14.5); WHITE BLOOD COUNT 6.8 K/mm3 (4.0-10.0)
--- NOTE | 2016-09-05 13:07 | REP ---
REASON: Pain after trauma. COMPARISON: 01/05/2011. Prior exam showed a limbus vertebral body involving superior end plate of L3 unchanged from an older exam. Vertebral body height and alignment is unchanged remaining within normal limits. There is no evidence of acute fracture. There is a stable L3 limbus vertebral body. The disc spaces are stable in height and appearance. There is no abnormal paraspinal soft tissue swelling and there is no CT evidence of central canal stenosis or foraminal narrowing. IMPRESSION: No significant change from the prior exam. No evidence of acute disease. Signed by Brandon Carrasco DO 09/05/2016 01:43 P
--- NOTE | 2016-09-05 13:10 | REP ---
REASON: Pain in the neck after trauma. COMPARISON: 04/27/2010 a preoperative exam. Since the last examination, the patient has undergone anterior cervical discectomy C5-6, C6-7. None of the affixing cancellous screws in the vertebral bodies of C5, C6 and C7 breech the posterior cortex. Bone graft material is seen at the C5-6 and C6-7 levels. There is no evidence of an acute C-spine fracture. Vertebral body height and alignment is otherwise unchanged and again seen to be within normal limits. The facet joints are well aligned bilaterally. There is no abnormal paraspinal soft tissue swelling. IMPRESSION: No evidence of acute disease. Signed by Brandon Carrasco DO 09/05/2016 01:43 P
--- NOTE | 2016-09-05 13:14 | REP ---
REASON: Pain after trauma. PRIORS: None. There is a minimal anterior wedge deformity involving T12. Vertebral body height and alignment otherwise normal. Disc spaces are symmetric and well maintained. There is no bony cause of foraminal narrowing or central canal stenosis. There is no abnormal paraspinal soft tissue swelling. IMPRESSION: Minimal anterior compression deformity superior end plate T12 probably transitional possibly secondary to old trauma. The examination is otherwise unremarkable. Signed by Brandon Carrasco DO 09/05/2016 01:43 P
[2016-09-05 13:20] LABS: ANION GAP 9 MEQ/L (8-16); BLOOD UREA NITROGEN 8 MG/DL (7-18); CALCIUM LEVEL 8.9 MG/DL (8.5-10.1); CARBON DIOXIDE LEVEL 23 MEQ/L (21-32); CHLORIDE LEVEL 112 MEQ/L (98-107); CREATININE FOR GFR 0.68 MG/DL (0.55-1.02); GLOMERULAR FILTRATION RATE > 60.0 (>60); GLUCOSE, FASTING 109 MG/DL (70-105); POTASSIUM SERUM 3.9 MEQ/L (3.5-5.1); SODIUM LEVEL 144 MEQ/L (136-145)
--- NOTE | 2016-09-05 13:46 | REP ---
Per train ratio left knee five views: There is no fracture or dislocation. There is no hemarthrosis. Mineralization joint spaces are normal. There are no calcifications or foreign bodies. Impression: Negative left knee. Signed by Obinna Rivera MD 09/05/2016 01:38 P
--- NOTE | 2016-09-05 13:47 | REP ---
Left ankle four views : There is no fracture or dislocation. Mineralization and joint spaces are normal. There are no calcifications or foreign bodies. Impression: Negative left ankle . Signed by Obinna Rivera MD 09/05/2016 01:38 P
--- NOTE | 2016-09-05 13:47 | REP ---
Left foot four views : There is no fracture or dislocation. Mineralization and joint spaces are normal. There are no calcifications or foreign bodies. Impression: Negative left foot . Signed by Obinna Rivera MD 09/05/2016 01:39 P
[2016-09-05 15:35] VITALS: BP 112/71
== END 2016-09-05 16:01 | disposition home or self-care (01) ==
LOC: M ED 13:11
DX: S93.402A Sprain of unspecified ligament of left ankle, initial encounter (principal); S22.080A Wedge compression fracture of T11-T12 vertebra, initial encounter for closed fracture; S51.812A Laceration without foreign body of left forearm, initial encounter; M23.92 Unspecified internal derangement of left knee; W10.9XXA Fall (on) (from) unspecified stairs and steps, initial encounter; Y92.019 Unspecified place in single-family (private) house as the place of occurrence of the external cause; Y93.89 Activity, other specified; Y99.8 Other external cause status; G89.4 Chronic pain syndrome; M54.40 Lumbago with sciatica, unspecified side; F31.9 Bipolar disorder, unspecified; K21.9 Gastro-esophageal reflux disease without esophagitis; M54.2 Cervicalgia; Z79.899 Other long term (current) drug therapy; Z91.040 Latex allergy status; Z91.09 Other allergy status, other than to drugs and biological substances; Z88.8 Allergy status to other drugs, medicaments and biological substances

== ENCOUNTER 2016-09-06 12:48 | Emergency (ER) | payer OTHER ==
[~2016-09-06] VITALS: Ht 170.2 cm; Wt 98.1 kg
[2016-09-06] MEDS ORDERED: LORazepam 2 MG/ML VIAL (J2060) IV STA (15:07)
[2016-09-06] MEDS ORDERED: NS 1,000 ML IV ONE (15:15)
[2016-09-06] MEDS ORDERED: ONDANSETRON 4MG/2ML VIAL (J2405) IV ONE (15:15)
[2016-09-06] MEDS ORDERED: KETOROLAC 30 MG/ML VIAL (J1885) IV ONE (15:15)
[2016-09-06 15:27] LABS: BASO % 0.2 % (0.0-1.0); EOS # 0.2 K/mm3 (0.0-0.50); EOS % 1.4 % (0.0-3.0); LARGE UNSTAINED CELL % 0.3 % (0.0-4.0); LYMPH # 1.1 K/mm3 (1.5-4.5); LYMPH % 7.3 % (24.0-44.0); MEAN CORPUSCULAR HEMOGLOBIN 31.4 pg (27.0-33.0); MEAN CORPUSCULAR HGB CONC 33.1 g/dl (32.0-36.5); MEAN CORPUSCULAR VOLUME 94.9 fl (80.0-96.0); MONO # 0.3 K/mm3 (0.0-0.8); NEUTROPHILS # 12.7 K/mm3 (1.8-7.7); NEUTROPHILS % 88.8 % (36.0-66.0); PLATELET COUNT, AUTOMATED 244 k/mm3 (150-450); RED CELL DISTRIBUTION WIDTH 13.3 % (11.5-14.5); WHITE BLOOD COUNT 14.3 K/mm3 (4.0-10.0)
[2016-09-06 15:44] LABS: ANION GAP 8 MEQ/L (8-16); BLOOD UREA NITROGEN 10 MG/DL (7-18); CALCIUM LEVEL 8.9 MG/DL (8.5-10.1); CARBON DIOXIDE LEVEL 24 MEQ/L (21-32); CHLORIDE LEVEL 111 MEQ/L (98-107); CREATININE FOR GFR 0.88 MG/DL (0.55-1.02); GLOMERULAR FILTRATION RATE > 60.0 (>60); GLUCOSE, FASTING 126 MG/DL (70-105); POTASSIUM SERUM 3.5 MEQ/L (3.5-5.1); SODIUM LEVEL 143 MEQ/L (136-145)
[2016-09-06 18:09] VITALS: BP 92/57
--- NOTE | 2016-09-07 07:49 | REP ---
MRI LUMBAR SPINE WITHOUT CONTRAST: 09/06/2016 COMPARISON: CT 09/05/2016, MRI 04/23/2015. TECHNIQUE: Sagittal T1, T2 and STIR images with axial T1 and T2 sequences provided. FINDINGS: The vertebral body heights and marrow signal are normal throughout except for some end plate discogenic changes at the L2-3 level. The disc space height at L2-3 is also narrowed and there is loss of disc water signal at that level. This is not much changed from last year. The other disc space heights and disc water signal are maintained. Lower thoracic levels mid T10 through T12 are also unremarkable as are their respective discs. The conus terminates at the level of the L1-2 vertebral disc level. The T10-11, T11-12, T12-L1 and L1-2 levels show no disc bulge herniation and no spinal or foraminal stenosis. At L2-3, there is minimal broad-based disc bulge slightly flattening the ventral thecal sac but this does not cause spinal stenosis, nor does it abut/displace the L3 nerve roots in the central canal. Foramina are ample at this level. At L3-L4, there is no significant disc bulge or herniation and no spinal or foraminal stenosis. At L4-L5, there is minimal broad-based disc bulge flattening the ventral thecal sac but neither abutting or displacing the L5 nerve roots in the central canal. Foramina are adequate with no nerve root compression. At L5-S1, minimal broad-based disc bulge also present but not causing spinal or foraminal stenosis. The S1 nerve roots are neither abutting or displaced by the disc bulge, which is small. No paraspinal abnormalities are noted. IMPRESSION: 1. Degenerative disc change at L2-3 with disc space narrowing, loss of disc water signal and disc bulge flattening ventral thecal sac but not causing any spinal or foraminal stenosis. 2. Minimal disc bulges at L3-4 through L5, S1, not causing spinal or foraminal stenosis. No nerve root is compressed in the foramina at any level nor is there abutment or displacement of nerve roots in the central canal. 3. No compression fracture, destructive lesion or any progressive changes in the spine from last year's MRI. Signed by Tomas Negrete MD 09/07/2016 09:33 A
== END 2016-09-06 18:14 | disposition home or self-care (01) ==
LOC: EDBD 12:48 → EDUNIT# 12:48 → M ED 14:36
DX: M54.5 Low back pain (principal); G89.29 Other chronic pain; M51.37 Other intervertebral disc degeneration, lumbosacral region; M51.36 Other intervertebral disc degeneration, lumbar region; F32.9 Major depressive disorder, single episode, unspecified; F41.9 Anxiety disorder, unspecified; E03.9 Hypothyroidism, unspecified; F17.210 Nicotine dependence, cigarettes, uncomplicated

== ENCOUNTER → 2016-09-19 | Outpatient (CLI) | payer OTHER ==
[~2016-09-19] MED LIST changes: +BUPIVACAINE HCL 0.25% 30 ML VIAL As Ordered ONE; +ISOVUE-M 300 61% 15ML VIAL (Q9967) As Ordered ONE; +LIDOCAINE 1% SDV INJ 30 ML VIAL As Ordered ONE; +TRIAMCINOLONE ACETONIDE SUSP 40 MG/ML VIAL (J3301) As Ordered ONE; +diazePAM 5 MG TAB As Ordered ONE; +oxyCODONE 5MG TAB As Ordered ONE
--- NOTE | 2016-09-19 14:59 | REP ---
Partial SI joint series: Four views. History: SI joint injection for pain. 22 seconds of fluoroscopy time is reported. Findings: A sequence of four fluoroscopically obtained last image hold spot radiographs of the right SI joint document various needle positions for injection procedure. Signed by Stewart Goetz MD 09/19/2016 04:40 P
--- NOTE | 2016-09-28 23:43 | ECWPNPC ---
PATIENT NAME: JOSEPH AVILEZ : 1975 GENDER: FEMALE VISIT DATE: 09/19/2016 DISCHARGE DATE: 09/19/16 1402 VISIT LOCKED DATE TIME: PHYSICIAN: DELTA GIBBS PHYSICIAN PAGER NO: TEXT TO [phone] RESOURCE: DELTA GIBBS REASON FOR APPOINTMENT 1. SIJ HISTORY OF PRESENT ILLNESS HISTORY OF PRESENT ILLNESS: PAIN THE PATIENT DESCRIBES THE PAIN... FALL RISK SCREENING: SCREENING :NO FALLS IN THE PAST YEAR CURRENT MEDICATIONS TAKING NORCO 10-325 MG TABLET 1 TABLET NEEDED ORALLY EVERY 6 HRS PRN PAIN MDD=3, NOTES: 09-18-162029 TAKING LIDOCAINE 4 % CREAM DIRECTED EXTERNALLY Q 6 HOURS TO PAINFUL AREAS LOW BACK AND NECK, NOTES: 09-18-162029 TAKING GABAPENTIN 300 MG CAPSULE 1 CAPSULE ORALLY THREE TIMES A DAY, NOTES: 09-19-16729 TAKING BACLOFEN 10 MG TABLET 2 TABS ORALLY ONCE DAILY, NOTES: 09-19-16729 TAKING NYSTATIN [id number] UNIT/GM POWDER 1 NULL TO AFFECTED AREA EXTERNALLY TWICE A DAY TAKING ZOLOFT 100 MG TABLET 2 TABS ORALLY ONCE A DAY, NOTES: 09-18-162029 TAKING AMITRIPTYLINE HCL 50 MG TABLET 1 TABLET ORALLY ONCE A DAY, NOTES: 09-18-162029 TAKING REFRESH OPTIVE 0.5-0.9 % SOLUTION OPHTHALMIC , NOTES: 09-19-16729 TAKING AMBIEN 10 MG TABLET 1 TAB(S) ORAL DAILY NEEDED, NOTES: NONE RECENT TAKING LEVOTHYROXINE SODIUM 25 MCG TABLET 1 TABLET ORALLY ONCE A DAY, NOTES: TAKING TOPIRAMATE 100 MG TABLET 1 TABLET ORALLY EVERY NIGHT TIME, NOTES: 09-18-162029 TAKING VENTOLIN HFA 108 (90 BASE) MCG/ACT AEROSOL SOLUTION 2 PUFFS NEEDED INHALATION EVERY 4 HRS, NOTES: NONE RECENT TAKING SPACER/AERO CHAMBER MOUTHPIECE - MISCELLANEOUS DIRECTED - - TAKING ZYRTEC ALLERGY 10 MG TABLET 1 TABLET NEEDED ORALLY ONCE A DAY, NOTES: 09-18-162029 TAKING IBUPROFEN 600 MG TABLET 1 TABLET ORALLY THREE TIMES A DAY NEEDED, NOTES: 09-18-162029 NOT-TAKING ZOFRAN ODT 4 MG TABLET DISPERSIBLE 1 TABLET ON THE TONGUE AND ALLOW TO DISSOLVE ORALLY EVERY 8 HRS NOT-TAKING ROLLER WALKER - MISCELLANEOUS DIRECTED WITH WHEELS, SEAT AND BRAKE MEDICATION LIST REVIEWED AND RECONCILED WITH THE PATIENT PAST MEDICAL HISTORY 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 ETT [facility] 04/30 NEG ISCHEMIA ECHO [facility]- 04/30- NML SYST AND DIASTOLIC FUNCTION 11/27 NSR, RARE ISOLATED PAC. EEG 09/15/14- NO EPILEPTIFORM ACTIVITY RATHKE'S CLEFT CYST- NCN FOLLOWING-REFERRED TO ENDOCRINOLOGY ALLERGIES EFFEXOR: WILD MOOD CHANGES MELA TO BIPOLAR I: SIDE EFFECTS LATEX (FOR ALLERGY USE ONLY): RASH: ALLERGY METHOCARBAMOL: LOWERS SEIZURE THRESHOLD: SIDE EFFECTS ADHESIVE: HIVES: ALLERGY REVIEW OF SYSTEMS REVIEWED BY: PROVIDER: . CONSTITUTIONAL: ANY CHANGE IN YOUR MEDICAL CONDITION? NO . CHILLS NO . FEVER NO . INFECTION: DO YOU HAVE NEW INFECTIONS? NO . DO YOU HAVE HISTORY OF MRSA? NO . MUSCULOSKELETAL: ANY NEW PATTERNS OF PAIN OR NUMBNESS? NO . GASTROENTEROLOGY: ANY NEW CHANGE IN BOWEL CONTROL? NO . GENITOURINARY: ANY NEW CHANGE IN BLADDER CONTROL? NO . IS THERE A CHANCE YOU COULD BE ? NO . HEMATOLOGY/LYMPH: DO YOU TAKE ANY BLOOD THINNERS? (FOR EXAMPLE- COUMADIN, PLAVIX, AGGRENOX, PLATEL, PRADAXA, OR XARELTO) NO . WHEN WAS YOUR LAST DOSE? DATE: TIME: . NEUROLOGY: HAVE YOU FALLEN IN THE PAST 6 MONTHS? YES, JUST FELL DOWN STAIRS IN LATE AUGUST AND WENT TO ER AND HAS A SPLINT ON LEFT LEG. . ANY NEW EXTREMITY NUMBNESS OR WEAKNESS? NO . CARDIOLOGY: DO YOU HAVE A PACEMAKER OR DEFIBRILLATOR? NO . RESPIRATORY: HAVE YOU BEEN SICK IN THE PAST WEEK? NO . FEVER NO . FLU LIKE SYMPTOMS? NO . COUGH NO . INTEGUMENTARY: DO YOU HAVE ANY RASHES OR OPEN SORES? NO . ALLERGIC/IMMUNO: ARE YOU ALLERGIC TO SHELLFISH OR IV DYE? NO . ANY NEW ALLERGIES? NO . PSYCHIATRIC: DO YOU HAVE THOUGHTS OF HURTING YOURSELF OR SOMEONE ELSE? NO . ARE YOU ABUSED, NEGLECTED, OR IN AN UNSAFE ENVIRONMENT? NO . ENDOCRINOLOGY: ARE YOU DIABETIC? NO . OTHER: DO YOU NEED ANY PRESCRIPTIONS? NO . IF YES, PLEASE LIST: ____ . ANY NEW PROBLEMS WITH YOUR MEDICATIONS? NO . WHEN DID YOU LAST EAT? 09-19-16 10PM . WHEN DID YOU LAST DRINK? 09-19-16 1100 . WHAT DID YOU LAST DRINK? WATER . NAME OF PERSON DRIVING YOU HOME? MOM- AMOS . DO YOU HAVE ANY OTHER QUESTIONS OR CONCERNS NO . VITAL SIGNS WT 214 LBS, HT 65 IN, BMI 35.61 INDEX, BP 115/69 MM HG, HR 91 /MIN, RR 18 /MIN, TEMP 97.7 F, OXYGEN SAT % 92%, NA INITIALS AW 1120, REVIEWED BY: CM. ASSESSMENTS SACROILIITIS, NOT ELSEWHERE CLASSIFIED - M46.1 (PRIMARY) PROCEDURES PN SI PRE PROCEDURE DIAGNOSIS SACROILIITIS, SACROILIAC JOINT DYSFUNCTION POST PROCEDURE DIAGNOSIS SACROILIITIS, SACROILIAC JOINT DYSFUNCTION PROCEDURE RIGHT SACROILIAC JOINT BLOCK SURGEON DR. DELTA GIBBS RELIGIOUS STUDIES PROFESSOR NONE ANESTHESIA LOCAL PRE PROCEDURE NOTE PATIENT WITH HISTORY OF CHRONIC LOW BACK PAIN. I EVALUATED THE PATIENT AND REVIEWED THE CHART. I WENT OVER THE RISKS, ALTERNATIVES, AND BENEFITS ASSOCIATED WITH THIS PROCEDURE. THE PATIENT WOULD LIKE TO PROCEED AND GAVE CONSENT TO PERFORM THE PROCEDURE. THE PATIENT DENIES UNEXPLAINABLE WEIGHT LOSS, FEVER, CHILLS, OR NEW CHANGES IN URINARY OR BOWEL CONTROL DESCRIPTION OF PROCEDURE THE PATIENT WAS BROUGHT TO THE PROCEDURE ROOM AND PLACED IN THE PRONE POSITION. THE LUMBOSACRAL AREA WAS CLEANED WITH CHLORAPREP SOLUTION AND DRAPED ASEPTICALLY. THE PROCEDURE WAS DONE UNDER STERILE CONDITIONS. I CHECKED LATERALITY AND THE LEVEL WHERE THE PROCEDURE WAS GOING TO BE PERFORMED WITH THE PATIENT AND THE SUPPORTING STAFF AT THE MOMENT OF THE TIME OUT IN THE PROCEDURE ROOM. UNDER FLUOROSCOPIC GUIDANCE, TARGET POINT WAS SELECTED AT THE LOWER BORDER OF THE RIGHT SACROILIAC JOINT. TARGET POINT WAS SELECTED AFTER MEDIAL ROTATION AND TILT OF THE MAGNIFIER OF THE C-ARM. LIDOCAINE WAS USED TO NUMB THE SKIN AND SUBCUTANEOUS TISSUE BELOW IT. A SPINAL NEEDLE, 22-GAUGE, WAS ADVANCED UNDER FLUOROSCOPIC GUIDANCE AND FOLLOWING PATIENT FEEDBACK UNTIL THE TARGET AREA WAS TOUCHED. THE POSITION OF THE NEEDLE WAS VERIFIED WITH AP AND LATERAL VIEWS. AFTER PROPER POSITION OF THE NEEDLE WAS ACHIEVED, ISOVUE M DYE 30%, 0.25 ML, WAS INJECTED SHOWING SPREAD OF THE DYE. THEN, A SOLUTION OF 20 MG OF KENALOG WAS INJECTED IN RIGHT JOINT WITH 3 ML OF BUPIVACAINE 0.125%. THERE WAS NO EVIDENCE OF BLOOD, PARESTHESIA OR CEREBROSPINAL FLUID DURING THE PROCEDURE. THE PATIENT WAS SENT TO THE RECOVERY ROOM. THE PATIENT WAS MOVING THE EXTREMITIES AND DOING WELL. THERE WAS NO COMPLICATION DURING THE PROCEDURE. FLUOROSCOPY TIME WAS 22 SECONDS POST PROCEDURE NOTE THE PATIENT WILL BE SEEN IN A FOLLOW UP IN THE NEXT FEW WEEKS. INSTRUCTIONS WERE GIVEN, QUESTIONS WERE ANSWERED, AND THE PATIENT EXPRESSED UNDERSTANDING AND AGREED WITH THE PLAN. I, YOSELIN HALE, DOCUMENTED THE ABOVE INFORMATION ACTING A SCRIBE FOR DR. GIBBS. I, DR. GIBBS, HAVE REVIEWED THE ABOVE DOCUMENT, SCRIBED BY YOSELIN HALE, AND I VERIFY THAT IT IS ACCURATE DIAGNOSTIC IMAGING [facility] FLUORO GUIDANCE (PAIN)[id number] PROCEDURE CODES 14848 INJECT SACROILIAC JOINT 6045F RADXPS IN END [id number] PXD DISPOSITION & COMMUNICATION FOLLOW UP 3 WEEKS ELECTRONICALLY SIGNED BY DELTA GIBBS MD ON 09/28/2016 AT 10:06 PM EDT DISCLAIMER : THIS IS A VISIT SUMMARY EXTRACTED FROM THE [employer] CHART. IT IS NOT A COPY OF THE [employer] PROGRESS NOTE. MTDD
== END ==
LOC: M PAIN 11:00
PROVIDERS: ATTEND Anesthesiology
DX: M46.1 Sacroiliitis, not elsewhere classified (principal); G89.29 Other chronic pain; G40.409 Other generalized epilepsy and epileptic syndromes, not intractable, without status epilepticus; Z88.8 Allergy status to other drugs, medicaments and biological substances; Z91.040 Latex allergy status; Z91.048 Other nonmedicinal substance allergy status; Z79.891 Long term (current) use of opiate analgesic; Z79.1 Long term (current) use of non-steroidal anti-inflammatories (NSAID); Z79.899 Other long term (current) drug therapy; Z72.0 Tobacco use

== ENCOUNTER → 2016-09-30 | Outpatient (CLI) | payer OTHER ==
[~2016-09-30] MED LIST changes: -BUPIVACAINE HCL 0.25% 30 ML VIAL As Ordered ONE; -ISOVUE-M 300 61% 15ML VIAL (Q9967) As Ordered ONE; -LIDOCAINE 1% SDV INJ 30 ML VIAL As Ordered ONE; -TRIAMCINOLONE ACETONIDE SUSP 40 MG/ML VIAL (J3301) As Ordered ONE; -diazePAM 5 MG TAB As Ordered ONE; -oxyCODONE 5MG TAB As Ordered ONE
--- NOTE | 2016-10-19 23:59 | ECWPNPC ---
PATIENT NAME: JOSEPH AVILEZ : 1975 GENDER: FEMALE VISIT DATE: 09/30/2016 DISCHARGE DATE: 09/30/16 1539 VISIT LOCKED DATE TIME: PHYSICIAN: MANSI VERA PHYSICIAN PAGER NO: TEXT CK [id number] RESOURCE: MANSI VERA REASON FOR APPOINTMENT 1. POST PROC HISTORY OF PRESENT ILLNESS HISTORY OF PRESENT ILLNESS: PAIN THE PATIENT DESCRIBES THE PAIN... FALL RISK SCREENING: SCREENING :NO FALLS IN THE PAST YEAR TODAY'S VISIT: NOTES: S/P RIGHT SIJ INJECTION COMPLETED ON 09/19/16. HAD FALL /TRAUMA DOWN 12 STAIRS. PAIN WORSENED IN RIGHT LEG AFTER FALL, BUT THIS IS NEW DOING VERY WELL. NOW PAIN IS WORSE ON THE LEFT. CURRENTLY HAS LEFT KNEE IMMOBILIZER. [place] IS CURRENTLY USING WALKER AT HOME. RATES PAIN 8/10 BUT NOTES THIS IS PRIMARILY DUE TO KNEE AND LEG PAIN POST FALL.. CURRENT MEDICATIONS TAKING NORCO 10-325 MG TABLET 1 TABLET NEEDED ORALLY EVERY 6 HRS PRN PAIN MDD=3 TAKING LIDOCAINE 4 % CREAM DIRECTED EXTERNALLY Q 6 HOURS TO PAINFUL AREAS LOW BACK AND NECK TAKING GABAPENTIN 300 MG CAPSULE 1 CAPSULE ORALLY THREE TIMES A DAY TAKING BACLOFEN 10 MG TABLET 2 TABS ORALLY ONCE DAILY TAKING NYSTATIN [id number] UNIT/GM POWDER 1 NULL TO AFFECTED AREA EXTERNALLY TWICE A DAY TAKING ZOLOFT 100 MG TABLET 2 TABS ORALLY ONCE A DAY TAKING AMITRIPTYLINE HCL 50 MG TABLET 1 TABLET ORALLY ONCE A DAY TAKING REFRESH OPTIVE 0.5-0.9 % SOLUTION OPHTHALMIC TAKING AMBIEN 10 MG TABLET 1 TAB(S) ORAL DAILY NEEDED TAKING LEVOTHYROXINE SODIUM 25 MCG TABLET 1 TABLET ORALLY ONCE A DAY TAKING TOPIRAMATE 100 MG TABLET 1 TABLET ORALLY EVERY NIGHT TIME TAKING VENTOLIN HFA 108 (90 BASE) MCG/ACT AEROSOL SOLUTION 2 PUFFS NEEDED INHALATION EVERY 4 HRS TAKING SPACER/AERO CHAMBER MOUTHPIECE - MISCELLANEOUS DIRECTED - - TAKING ZYRTEC ALLERGY 10 MG TABLET 1 TABLET NEEDED ORALLY ONCE A DAY TAKING IBUPROFEN 600 MG TABLET 1 TABLET ORALLY THREE TIMES A DAY NEEDED NOT-TAKING ZOFRAN ODT 4 MG TABLET DISPERSIBLE 1 TABLET ON THE TONGUE AND ALLOW TO DISSOLVE ORALLY EVERY 8 HRS NOT-TAKING ROLLER WALKER - MISCELLANEOUS DIRECTED WITH WHEELS, SEAT AND BRAKE MEDICATION LIST REVIEWED AND RECONCILED WITH THE PATIENT PAST MEDICAL HISTORY 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 ETT [facility] 04/30 NEG ISCHEMIA ECHO [facility]- 04/30- NML SYST AND DIASTOLIC FUNCTION 11/27 NSR, RARE ISOLATED PAC. EEG 09/15/14- NO EPILEPTIFORM ACTIVITY RATHKE'S CLEFT CYST- NCN FOLLOWING-REFERRED TO ENDOCRINOLOGY ALLERGIES EFFEXOR: WILD MOOD CHANGES MELA TO BIPOLAR I: SIDE EFFECTS LATEX (FOR ALLERGY USE ONLY): RASH: ALLERGY METHOCARBAMOL: LOWERS SEIZURE THRESHOLD: SIDE EFFECTS ADHESIVE: HIVES: ALLERGY SURGICAL HISTORY TUBAL LIGATION 2001 OVARY ON CYST RUPTERED 1993 APPENDECTOMY 09/26/13 C-5, C-6, C-7 DISKECTOMY, OSTEOPHYTECTOMY 01/2015 HOSPITALIZATION/MAJOR DIAGNOSTIC PROCEDURE CHILDBIRTH REVIEW OF SYSTEMS FOLLOW-UP ROS: PSYCHOLOGY: TO SEE VICTIMS ASSISTANCE AND TO GET STAY AWAY ORDER. CONTINUES WITH COUNSELOR . REVIEWED BY: PROVIDER: MANSI RODRIGUEZ . CONSTITUTIONAL: ANY CHANGE IN YOUR MEDICAL CONDITION? YES, SINCE FALL DOWN THE STAIRS. . CHILLS NO . FEVER NO . INFECTION: DO YOU HAVE NEW INFECTIONS? NO . DO YOU HAVE HISTORY OF MRSA? NO . MUSCULOSKELETAL: ANY NEW PATTERNS OF PAIN OR NUMBNESS? YES, LEFT LEG AND KNEE / STABBING PAIN LIKE A HOT POKER LEFT SI AREA . GASTROENTEROLOGY: ANY NEW CHANGE IN BOWEL CONTROL? NO . GENITOURINARY: ANY NEW CHANGE IN BLADDER CONTROL? NO . IS THERE A CHANCE YOU COULD BE ? NO . HEMATOLOGY/LYMPH: DO YOU TAKE ANY BLOOD THINNERS? (FOR EXAMPLE- COUMADIN, PLAVIX, AGGRENOX, PLATEL, PRADAXA, OR XARELTO) NO . WHEN WAS YOUR LAST DOSE? DATE: TIME: . NEUROLOGY: HAVE YOU FALLEN IN THE PAST 6 MONTHS? YES, FALL DOWN THE STAIRS LAST MONTH ON . ANY NEW EXTREMITY NUMBNESS OR WEAKNESS? NO . CARDIOLOGY: DO YOU HAVE A PACEMAKER OR DEFIBRILLATOR? NO . RESPIRATORY: HAVE YOU BEEN SICK IN THE PAST WEEK? NO . FEVER NO . FLU LIKE SYMPTOMS? NO . COUGH NO . INTEGUMENTARY: DO YOU HAVE ANY RASHES OR OPEN SORES? NO . ALLERGIC/IMMUNO: ARE YOU ALLERGIC TO SHELLFISH OR IV DYE? NO . ANY NEW ALLERGIES? NO . PSYCHIATRIC: DO YOU HAVE THOUGHTS OF HURTING YOURSELF OR SOMEONE ELSE? NO . ARE YOU ABUSED, NEGLECTED, OR IN AN UNSAFE ENVIRONMENT? NO . ENDOCRINOLOGY: ARE YOU DIABETIC? NO . OTHER: DO YOU NEED ANY PRESCRIPTIONS? YES . IF YES, PLEASE LIST: HYDROCODONE . ANY NEW PROBLEMS WITH YOUR MEDICATIONS? NO . WHEN DID YOU LAST EAT? ____ . WHEN DID YOU LAST DRINK? ____ . WHAT DID YOU LAST DRINK? ____ . NAME OF PERSON DRIVING YOU HOME? ____ . DO YOU HAVE ANY OTHER QUESTIONS OR CONCERNS WANT TO DISCUSS ABOUT BACLOFEN WITH YOU / MAYBE CHANGE TO SOMETHING ELSE? . VITAL SIGNS WT 213.8 LBS, HT 65 IN, BMI 35.57 INDEX, BP 113/73 MM HG, HR 76 /MIN, RR 16 /MIN, TEMP 97.1 F, OXYGEN SAT % 95%, NA INITIALS SC 14:46. EXAMINATION GENERAL EXAMINATION: PSYCHALERT , ORIENTED X 3 , APPROPRIATE MOOD AND AFFECT. LUNGS:CLEAR TO AUSCULTATION BILATERALLY. HEART:HEART RATE REGULAR. MUSCULOSKELETAL:TRIGGER POINTS:, ELICITED WITH PALPATION OVER LUMBAR PARAVERTEBRAL MUSCLES AND INTO THE SECRUM. RESTRICTION OF ROM IN THIS AREA, TRIGGER POINTS:, ELICITED WITH PALPATION OVER CERVICAL SPINOUS PROCESSES AND ACROSS THE TRAPEZIUS MUSCLES BILATERALLY. MINIMAL RESTRICTION OF ROM IS NOTED. SLOW TO RISE TO STANDING POSITION. SWELLING OVER LEFT KNEE AND TROCANTER WITH TENDERNESS IN THIS AREA. GAIT SLOW, ANTALGIC. ASSESSMENTS SACROILIITIS, NOT ELSEWHERE CLASSIFIED - M46.1 (PRIMARY) CERVICAL POST-LAMINECTOMY SYNDROME - M96.1 MYALGIA - M79.1 TREATMENT SACROILIITIS, NOT ELSEWHERE CLASSIFIED STOP BACLOFEN TABLET, 10 MG, 2 TABS, ORALLY, ONCE DAILY START CYCLOBENZAPRINE HCL TABLET, 10 MG, 1 TABLET NEEDED, ORALLY, THREE TIMES A DAY, 30 DAY(S), 90 TABLET, REFILLS 1 INJECTION ANESTHETIC SACROILIAC JOINTJODYMANSI Hein 09/30/2016 3:24:20 PM > LEFT INJECTION ANESTHETIC SACROILIAC JOINT (ORDERED FOR 09/30/2016) NOTES: CE TO MUSCLE SPASMSFOLLOWUP WITH ORTHOPEDICS. FOLLOW UP WITH VICTIMS ASSISTANCENARCOTIC AGREEMENT TODAY. CLINICAL NOTES: ISTOP REGISTRY REVIEWED AND DEMNOSTRATES COMPLLIANCE. BRINGS IN MEDICATIONS WHICH IS APPROPRIATE FOR WHAT WAS DISPENSED. RECENT URINE TOXICOLOGY REVIEWED. NO UNAUTHORIZED MEDICATIONS. VERY SMALL AMOUNT OF MARIJUANA NOTED - DID DISCUSS THIS WITH JOSEPH AND SHE AGREES TO DISCONTINUE USE.. PREVENTIVE MEDICINE DISCUSSED PREPROCEDURE CARE AND SIJ INJECTION/ PT EXPRESSED UNDERSTANDING. PROCEDURE CODES FA211 ESTABILISHED PATIENT [facility] CHARGE DISPOSITION & COMMUNICATION FOLLOW UP AFTER INJECTION (REASON: CHECK AUTH LEFT SIJ) ELECTRONICALLY SIGNED BY KENNY JACOBS ON 10/19/2016 AT 01:42 PM EDT DISCLAIMER : THIS IS A VISIT SUMMARY EXTRACTED FROM THE [employer] CHART. IT IS NOT A COPY OF THE [employer] PROGRESS NOTE. ED
== END ==
LOC: M PAIN 14:40
PROVIDERS: ATTEND Nurse Practitioner Family
DX: G89.29 Other chronic pain (principal); M46.1 Sacroiliitis, not elsewhere classified; M96.1 Postlaminectomy syndrome, not elsewhere classified; M79.1 Myalgia; E23.6 Other disorders of pituitary gland; Z72.0 Tobacco use; Z91.040 Latex allergy status; Z91.048 Other nonmedicinal substance allergy status; Z88.8 Allergy status to other drugs, medicaments and biological substances; Z79.891 Long term (current) use of opiate analgesic; Z79.899 Other long term (current) drug therapy

== ENCOUNTER → 2016-10-10 | Outpatient (REF) | payer OTHER | LOC: M LABDRAWP 12:04 | PROVIDERS: ATTEND Family Medicine | DX: L82.0 Inflamed seborrheic keratosis (principal) ==

== ENCOUNTER → 2016-10-15 | Outpatient (CLI) | payer OTHER ==
[~2016-10-15] MED LIST changes: +BUPIVACAINE HCL 0.25% 30 ML VIAL As Ordered ONE; +ISOVUE-M 300 61% 15ML VIAL (Q9967) As Ordered ONE; +LIDOCAINE 1% SDV INJ 30 ML VIAL As Ordered ONE; +TRIAMCINOLONE ACETONIDE SUSP 40 MG/ML VIAL (J3301) As Ordered ONE; +diazePAM 5 MG TAB As Ordered ONE; +oxyCODONE 5MG TAB As Ordered ONE
--- NOTE | 2016-10-15 17:08 | REP ---
FLUOROSCOPIC GUIDANCE: The images were reviewed with Dr. Negrete. The patient has a history of low back pain. The portable C-Arm was provided in the OR for Dr. Geiger for fluoroscopic guidance. One intraoperative fluoroscopic spot film was obtained using last image hold technology for needle placement verification for left sacroiliac joint injection. The film is on the PACs system and is available for review. 6 seconds of fluoroscopy time was utilized for this procedure. Reviewed by LAY Mitchell 10/16/2016 05:44 PEdited and Signed by Tomas Negrete MD 10/16/2016 06:49 P
--- NOTE | 2016-11-03 00:13 | ECWPNPC ---
PATIENT NAME: JOSEPH AVILEZ : 1975 GENDER: FEMALE VISIT DATE: 10/15/2016 DISCHARGE DATE: 10/15/16 1155 VISIT LOCKED DATE TIME: PHYSICIAN: DELTA GIBBS PHYSICIAN PAGER NO: TEXT TO [phone] RESOURCE: DELTA GIBBS REASON FOR APPOINTMENT 1. LEFT SIJ HISTORY OF PRESENT ILLNESS HISTORY OF PRESENT ILLNESS: PAIN THE PATIENT DESCRIBES THE PAIN... FALL RISK SCREENING: SCREENING :NO FALLS IN THE PAST YEAR CURRENT MEDICATIONS TAKING LIDOCAINE 4 % CREAM DIRECTED EXTERNALLY Q 6 HOURS TO PAINFUL AREAS LOW BACK AND NECK, NOTES: 10/12 TAKING GABAPENTIN 300 MG CAPSULE 1 CAPSULE ORALLY THREE TIMES A DAY, NOTES: 10/15 729 TAKING NYSTATIN [id number] UNIT/GM POWDER 1 NULL TO AFFECTED AREA EXTERNALLY TWICE A DAY, NOTES: 10/14 1699 TAKING ZOLOFT 100 MG TABLET 2 TABS ORALLY ONCE A DAY, NOTES: 10/14 2029 TAKING AMITRIPTYLINE HCL 50 MG TABLET 1 TABLET ORALLY ONCE A DAY, NOTES: 10/14 2029 TAKING REFRESH OPTIVE 0.5-0.9 % SOLUTION OPHTHALMIC , NOTES: 10/14 1229 TAKING AMBIEN 10 MG TABLET 1 TAB(S) ORAL DAILY NEEDED, NOTES: 10/14 2029 TAKING LEVOTHYROXINE SODIUM 25 MCG TABLET 1 TABLET ORALLY ONCE A DAY, NOTES: 10/14 2029 TAKING TOPIRAMATE 100 MG TABLET 1 TABLET ORALLY EVERY NIGHT TIME, NOTES: 10/14 2029 TAKING VENTOLIN HFA 108 (90 BASE) MCG/ACT AEROSOL SOLUTION 2 PUFFS NEEDED INHALATION EVERY 4 HRS, NOTES: NONE RECENT TAKING SPACER/AERO CHAMBER MOUTHPIECE - MISCELLANEOUS DIRECTED - -, NOTES: N/A TAKING ZYRTEC ALLERGY 10 MG TABLET 1 TABLET NEEDED ORALLY ONCE A DAY, NOTES: 10/14 2029 TAKING IBUPROFEN 600 MG TABLET 1 TABLET ORALLY THREE TIMES A DAY NEEDED, NOTES: NONE RECENT TAKING NORCO 10-325 MG TABLET 1 TABLET NEEDED ORALLY EVERY 6 HRS PRN PAIN MDD=3, NOTES: 10/15 699 TAKING CYCLOBENZAPRINE HCL 10 MG TABLET 1 TABLET NEEDED ORALLY THREE TIMES A DAY, NOTES: 10/15 699 NOT-TAKING ZOFRAN ODT 4 MG TABLET DISPERSIBLE 1 TABLET ON THE TONGUE AND ALLOW TO DISSOLVE ORALLY EVERY 8 HRS NOT-TAKING ROLLER WALKER - MISCELLANEOUS DIRECTED WITH WHEELS, SEAT AND BRAKE MEDICATION LIST REVIEWED AND RECONCILED WITH THE PATIENT PAST MEDICAL HISTORY 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 ETT [facility] 04/30 NEG ISCHEMIA ECHO [facility]- 04/30- NML SYST AND DIASTOLIC FUNCTION 11/27 NSR, RARE ISOLATED PAC. EEG 09/15/14- NO EPILEPTIFORM ACTIVITY RATHKE'S CLEFT CYST- NCN FOLLOWING-REFERRED TO ENDOCRINOLOGY ALLERGIES EFFEXOR: WILD MOOD CHANGES MELA TO BIPOLAR I: SIDE EFFECTS LATEX (FOR ALLERGY USE ONLY): RASH: ALLERGY METHOCARBAMOL: LOWERS SEIZURE THRESHOLD: SIDE EFFECTS ADHESIVE: HIVES: ALLERGY SOCIAL HISTORY GENERAL: TOBACCO USE ARE YOU A:CURRENT SMOKER HOW MANY CIGARETTES A DAY DO YOU SMOKE?5 OR LESS HOW SOON AFTER YOU WAKE UP DO YOU SMOKE YOUR FIRST CIGARETTE?AFTER 60 MIN HOW OFTEN DO YOU SMOKE CIGARETTES?EVERY DAY PATIENT COUNSELED ON THE DANGERS OF TOBACCO USE AND URGED TO QUIT:10/15/2016 ARE YOU INTERESTED IN QUITTING?THINKING ABOUT QUITTING SLOWLY DECREASING THE # OF CIGARETTES/DAY PREVIOUS QUIT ATTEMPTS?YES, WITHIN THE LAST 6 MONTHS. COUNSELED THE PATIENT ON SMOKING CESSATION, EDUCATION [id number]/02/2017 BMI CARE GOAL FOLLOW-UP ABOVE NORMAL BMI FOLLOW-UPLIFESTYLE EDUCATION REGARDING DIET ALCOHOL SCREENING DID YOU HAVE A DRINK CONTAINING ALCOHOL IN THE PAST YEAR?YES HOW OFTEN DID YOU HAVE SIX OR MORE DRINKS ON ONE OCCASION IN THE PAST YEAR?NEVER (0 POINTS) HOW MANY DRINKS DID YOU HAVE ON A TYPICAL DAY WHEN YOU WERE DRINKING IN THE PAST YEAR?1 OR 2 (0 POINTS) HOW OFTEN DID YOU HAVE A DRINK CONTAINING ALCOHOL IN THE PAST YEAR?MONTHLY OR LESS (1 POINT) POINTS1 INTERPRETATIONNEGATIVE RECREATIONAL DRUG USE DRUG USE?NO CAFFEINE CAFFEINE USE?YES SWEET TEA HIV / HEP-C SCREENING HIV TEST OFFERED TO PATIENT:NO HEP-C TEST OFFERED TO PATIENT:NO OCCUPATION: DISABLED. LANGUAGE LANGUAGES SPOKEN:HEBREW LEARNING BARRIERS / SPECIAL NEEDS CHANGE FROM LAST VISIT?NO BARRIERS TO LEARNING?NO HEARING IMPAIRED?NO VISION IMPAIRED?YES :CORRECTIVE LENSES COGNITIVELY IMPAIRED?NO READINESS TO LEARN?YES LEARNING PREFERENCES?NO LEARNING CAPABILITIES PRESENT?YES EMOTIONAL BARRIERS?NO SPECIAL DEVICES?NO ADJUNCT FACULTY NEEDED?NO NEW PATIENT PAIN DIARY TODAY'S VISITNOTES FROM 0-10, WHAT LEVEL IS YOUR PAIN TODAY?0 PAIN CLINIC PFS, CLERGY, PUBLIC HEALTH REFERRALS PFS REFERRAL NEEDED?NO PFS REFERRAL NEEDED?NO CLERGY REFERRAL NEEDED?NO CLERGY REFERRAL NEEDED?NO PUBLIC HEALTH REFERRAL NEEDED?NO PUBLIC HEALTH REFERRAL NEEDED?NO WAS THE PROVIDER NOTIFIED OF ANY PERTINENT INFO?NO WAS THE PROVIDER NOTIFIED OF ANY PERTINENT INFO?NO REVIEW OF SYSTEMS REVIEWED BY: PROVIDER: . CONSTITUTIONAL: ANY CHANGE IN YOUR MEDICAL CONDITION? NO . CHILLS NO . FEVER NO . INFECTION: DO YOU HAVE NEW INFECTIONS? NO . DO YOU HAVE HISTORY OF MRSA? NO . MUSCULOSKELETAL: ANY NEW PATTERNS OF PAIN OR NUMBNESS? NO . GASTROENTEROLOGY: ANY NEW CHANGE IN BOWEL CONTROL? NO . GENITOURINARY: ANY NEW CHANGE IN BLADDER CONTROL? NO . IS THERE A CHANCE YOU COULD BE ? NO . HEMATOLOGY/LYMPH: DO YOU TAKE ANY BLOOD THINNERS? (FOR EXAMPLE- COUMADIN, PLAVIX, AGGRENOX, PLATEL, PRADAXA, OR XARELTO) NO . WHEN WAS YOUR LAST DOSE? DATE: TIME: . NEUROLOGY: HAVE YOU FALLEN IN THE PAST 6 MONTHS? YES, LAST TIME YEST.--JUST LOST HER BALANCE--NO INJURY . ANY NEW EXTREMITY NUMBNESS OR WEAKNESS? NO . CARDIOLOGY: DO YOU HAVE A PACEMAKER OR DEFIBRILLATOR? NO . RESPIRATORY: HAVE YOU BEEN SICK IN THE PAST WEEK? NO . FEVER NO . FLU LIKE SYMPTOMS? NO . COUGH NO . INTEGUMENTARY: DO YOU HAVE ANY RASHES OR OPEN SORES? NO . ALLERGIC/IMMUNO: ARE YOU ALLERGIC TO SHELLFISH OR IV DYE? NO . ANY NEW ALLERGIES? NO . PSYCHIATRIC: DO YOU HAVE THOUGHTS OF HURTING YOURSELF OR SOMEONE ELSE? NO . ARE YOU ABUSED, NEGLECTED, OR IN AN UNSAFE ENVIRONMENT? NO . ENDOCRINOLOGY: ARE YOU DIABETIC? NO . OTHER: DO YOU NEED ANY PRESCRIPTIONS? NO . IF YES, PLEASE LIST: ____ . ANY NEW PROBLEMS WITH YOUR MEDICATIONS? NO . WHEN DID YOU LAST EAT? ____10/14 2100 . WHEN DID YOU LAST DRINK? 10/15 0720 . WHAT DID YOU LAST DRINK? ORANGE JUICE . NAME OF PERSON DRIVING YOU HOME? AMOS--MOM . DO YOU HAVE ANY OTHER QUESTIONS OR CONCERNS NO . VITAL SIGNS WT 209 LBS, HT 65 IN, BMI 34.78 INDEX, BP 102/72 MM HG, HR 99 /MIN, RR 16 /MIN, TEMP 97.2 F, OXYGEN SAT % 95%, REVIEWED BY: LISA. ASSESSMENTS SACROILIITIS, NOT ELSEWHERE CLASSIFIED - M46.1 (PRIMARY) PROCEDURES PN SI PRE PROCEDURE DIAGNOSIS SACROILIITIS, SACROILIAC JOINT DYSFUNCTION POST PROCEDURE DIAGNOSIS SACROILIITIS, SACROILIAC JOINT DYSFUNCTION PROCEDURE LEFT SACROILIAC JOINT BLOCK SURGEON DR. DELTA GIBBS SENIOR PROGRAM PLANNER NONE ANESTHESIA LOCAL PRE PROCEDURE NOTE PATIENT WITH HISTORY OF CHRONIC LOW BACK PAIN. I EVALUATED THE PATIENT AND REVIEWED THE CHART. I WENT OVER THE RISKS, ALTERNATIVES, AND BENEFITS ASSOCIATED WITH THIS PROCEDURE. THE PATIENT WOULD LIKE TO PROCEED AND GAVE CONSENT TO PERFORM THE PROCEDURE. THE PATIENT DENIES UNEXPLAINABLE WEIGHT LOSS, FEVER, CHILLS, OR NEW CHANGES IN URINARY OR BOWEL CONTROL DESCRIPTION OF PROCEDURE THE PATIENT WAS BROUGHT TO THE PROCEDURE ROOM AND PLACED IN THE PRONE POSITION. THE LUMBOSACRAL AREA WAS CLEANED WITH CHLORAPREP SOLUTION AND DRAPED ASEPTICALLY. THE PROCEDURE WAS DONE UNDER STERILE CONDITIONS. I CHECKED LATERALITY AND THE LEVEL WHERE THE PROCEDURE WAS GOING TO BE PERFORMED WITH THE PATIENT AND THE SUPPORTING STAFF AT THE MOMENT OF THE TIME OUT IN THE PROCEDURE ROOM. UNDER FLUOROSCOPIC GUIDANCE, TARGET POINT WAS SELECTED AT THE LOWER BORDER OF THE LEFT SACROILIAC JOINT. TARGET POINT WAS SELECTED AFTER MEDIAL ROTATION AND TILT OF THE MAGNIFIER OF THE C-ARM. LIDOCAINE WAS USED TO NUMB THE SKIN AND SUBCUTANEOUS TISSUE BELOW IT. A SPINAL NEEDLE, 22-GAUGE, WAS ADVANCED UNDER FLUOROSCOPIC GUIDANCE AND FOLLOWING PATIENT FEEDBACK UNTIL THE TARGET AREA WAS TOUCHED. THE POSITION OF THE NEEDLE WAS VERIFIED WITH AP AND LATERAL VIEWS. AFTER PROPER POSITION OF THE NEEDLE WAS ACHIEVED, ISOVUE M DYE 30%, 0.25 ML, WAS INJECTED SHOWING SPREAD OF THE DYE. THEN, A SOLUTION OF 20 MG OF KENALOG WAS INJECTED IN RIGHT JOINT WITH 3 ML OF BUPIVACAINE 0.125%. THERE WAS NO EVIDENCE OF BLOOD, PARESTHESIA OR CEREBROSPINAL FLUID DURING THE PROCEDURE. THE PATIENT WAS SENT TO THE RECOVERY ROOM. THE PATIENT WAS MOVING THE EXTREMITIES AND DOING WELL. THERE WAS NO COMPLICATION DURING THE PROCEDURE. FLUOROSCOPY TIME WAS 6 SECONDS POST PROCEDURE NOTE THE PATIENT WILL BE SEEN IN A FOLLOW UP IN THE NEXT FEW WEEKS. INSTRUCTIONS WERE GIVEN, QUESTIONS WERE ANSWERED, AND THE PATIENT EXPRESSED UNDERSTANDING AND AGREED WITH THE PLAN. I, YOSELIN HALE, DOCUMENTED THE ABOVE INFORMATION ACTING A SCRIBE FOR DR. GIBBS. I HAVE REVIEWED THE ABOVE DOCUMENT, WRITTEN BY YOSELIN BRANDON AND I VERIFY THAT IT IS [facility] FLUORO GUIDANCE (PAIN)[id number] PROCEDURE CODES 28320 INJECT SACROILIAC JOINT 6045F RADXPS IN END ASPR4LDTME PXD DISPOSITION & COMMUNICATION FOLLOW UP 3 WEEKS ELECTRONICALLY SIGNED BY DELTA GIBBS MD ON 11/02/2016 AT 11:57 AM EDT DISCLAIMER : THIS IS A VISIT SUMMARY EXTRACTED FROM THE [employer] CHART. IT IS NOT A COPY OF THE [employer] PROGRESS NOTE. MTDD
== END ==
LOC: M PAIN 10:20
PROVIDERS: ATTEND Anesthesiology
DX: G89.29 Other chronic pain (principal); M46.1 Sacroiliitis, not elsewhere classified; F17.210 Nicotine dependence, cigarettes, uncomplicated; G40.409 Other generalized epilepsy and epileptic syndromes, not intractable, without status epilepticus; Z79.891 Long term (current) use of opiate analgesic; Z79.1 Long term (current) use of non-steroidal anti-inflammatories (NSAID); Z79.899 Other long term (current) drug therapy; Z91.040 Latex allergy status; Z91.048 Other nonmedicinal substance allergy status; Z88.8 Allergy status to other drugs, medicaments and biological substances
CPT/HCPCS: 27096; J3301; Q9967

== ENCOUNTER → 2016-10-23 | Outpatient (CLI) | payer OTHER ==
[~2016-10-23] MED LIST changes: -BUPIVACAINE HCL 0.25% 30 ML VIAL As Ordered ONE; -ISOVUE-M 300 61% 15ML VIAL (Q9967) As Ordered ONE; -LIDOCAINE 1% SDV INJ 30 ML VIAL As Ordered ONE; -TRIAMCINOLONE ACETONIDE SUSP 40 MG/ML VIAL (J3301) As Ordered ONE; -diazePAM 5 MG TAB As Ordered ONE; -oxyCODONE 5MG TAB As Ordered ONE
--- NOTE | 2016-10-23 23:24 | ECWPNPC ---
PATIENT NAME: JOSEPH AVILEZ : 1975 GENDER: FEMALE VISIT DATE: 10/23/2016 DISCHARGE DATE: 10/23/16 1105 VISIT LOCKED DATE TIME: PHYSICIAN: MANSI VERA PHYSICIAN PAGER NO: TEXT TO [phone] RESOURCE: MANSI VERA REASON FOR APPOINTMENT 1. MEDS HISTORY OF PRESENT ILLNESS HISTORY OF PRESENT ILLNESS: PAIN THE PATIENT DESCRIBES THE PAIN... FALL RISK SCREENING: SCREENING :NO FALLS IN THE PAST YEAR TODAY'S VISIT: NOTES: S/P LEFT SIJ INJECTION. INITIALLY HAD GOOD RELIEF OF PAIN WITH MARKED INCREASE TO 9/10 AT ONE WEEK. ALSO REPORTS HER MEDS WERE STOLEN ON 10/19/16 AND A POLICE REPORT WAS BROUGHT TO US. STATES SHE WAS PASSED OUT BECAUSE SHE HAD TAKEN HER MEDS AND SOMEONE CAME IN HER ROOM AND TOOK HER MEDS. SINCE THEN SHE HAS HAD SEVERE PAIN ALL OVER THE BODY AND SIGNIFICANT DIARRHEA AND GI UPSET. IS CONTACTING ALL HER PROVIDERS ABOUT THE MISSING MEDS.. CURRENT MEDICATIONS TAKING NYSTATIN [id number] UNIT/GM POWDER 1 NULL TO AFFECTED AREA EXTERNALLY TWICE A DAY TAKING ZOLOFT 100 MG TABLET 2 TABS ORALLY ONCE A DAY TAKING AMITRIPTYLINE HCL 50 MG TABLET 1 TABLET ORALLY ONCE A DAY TAKING REFRESH OPTIVE 0.5-0.9 % SOLUTION OPHTHALMIC TAKING AMBIEN 10 MG TABLET 1 TAB(S) ORAL DAILY NEEDED TAKING TOPIRAMATE 100 MG TABLET 1 TABLET ORALLY EVERY NIGHT TIME TAKING VENTOLIN HFA 108 (90 BASE) MCG/ACT AEROSOL SOLUTION 2 PUFFS NEEDED INHALATION EVERY 4 HRS, NOTES: NONE RECENT TAKING SPACER/AERO CHAMBER MOUTHPIECE - MISCELLANEOUS DIRECTED - -, NOTES: N/A TAKING ZYRTEC ALLERGY 10 MG TABLET 1 TABLET NEEDED ORALLY ONCE A DAY TAKING IBUPROFEN 600 MG TABLET 1 TABLET ORALLY THREE TIMES A DAY NEEDED TAKING GABAPENTIN 300 MG CAPSULE 1 CAPSULE ORALLY THREE TIMES A DAY TAKING LIDOCAINE 4 % CREAM DIRECTED EXTERNALLY Q 6 HOURS TO PAINFUL AREAS LOW BACK AND NECK TAKING NORCO 10-325 MG TABLET 1 TABLET NEEDED ORALLY EVERY 6 HRS PRN PAIN MDD=3 TAKING CYCLOBENZAPRINE HCL 10 MG TABLET 1 TABLET NEEDED ORALLY THREE TIMES A DAY TAKING LEVOTHYROXINE SODIUM 25 MCG TABLET 1 TABLET ORALLY ONCE A DAY NOT-TAKING ZOFRAN ODT 4 MG TABLET DISPERSIBLE 1 TABLET ON THE TONGUE AND ALLOW TO DISSOLVE ORALLY EVERY 8 HRS NOT-TAKING ROLLER WALKER - MISCELLANEOUS DIRECTED WITH WHEELS, SEAT AND BRAKE MEDICATION LIST REVIEWED AND RECONCILED WITH THE PATIENT PAST MEDICAL HISTORY 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 ETT [facility] 04/30 NEG ISCHEMIA ECHO [facility]- 04/30- NML SYST AND DIASTOLIC FUNCTION 11/27 NSR, RARE ISOLATED PAC. EEG 09/15/14- NO EPILEPTIFORM ACTIVITY RATHKE'S CLEFT CYST- NCN FOLLOWING-REFERRED TO ENDOCRINOLOGY ALLERGIES EFFEXOR: WILD MOOD CHANGES MELA TO BIPOLAR I: SIDE EFFECTS LATEX (FOR ALLERGY USE ONLY): RASH: ALLERGY METHOCARBAMOL: LOWERS SEIZURE THRESHOLD: SIDE EFFECTS ADHESIVE: HIVES: ALLERGY SOCIAL HISTORY GENERAL: TOBACCO USE ARE YOU A:CURRENT SMOKER HOW MANY CIGARETTES A DAY DO YOU SMOKE?5 OR LESS HOW SOON AFTER YOU WAKE UP DO YOU SMOKE YOUR FIRST CIGARETTE?AFTER 60 MIN HOW OFTEN DO YOU SMOKE CIGARETTES?EVERY DAY PATIENT COUNSELED ON THE DANGERS OF TOBACCO USE AND URGED TO QUIT:10/15/2016 ARE YOU INTERESTED IN QUITTING?THINKING ABOUT QUITTING SLOWLY DECREASING THE # OF CIGARETTES/DAY PREVIOUS QUIT ATTEMPTS?YES, WITHIN THE LAST 6 MONTHS. COUNSELED THE PATIENT ON SMOKING CESSATION, EDUCATION [id number]/02/2017 BMI CARE GOAL FOLLOW-UP ABOVE NORMAL BMI FOLLOW-UPLIFESTYLE EDUCATION REGARDING DIET ALCOHOL SCREENING DID YOU HAVE A DRINK CONTAINING ALCOHOL IN THE PAST YEAR?YES HOW OFTEN DID YOU HAVE A DRINK CONTAINING ALCOHOL IN THE PAST YEAR?MONTHLY OR LESS (1 POINT) HOW MANY DRINKS DID YOU HAVE ON A TYPICAL DAY WHEN YOU WERE DRINKING IN THE PAST YEAR?1 OR 2 (0 POINTS) HOW OFTEN DID YOU HAVE SIX OR MORE DRINKS ON ONE OCCASION IN THE PAST YEAR?NEVER (0 POINTS) POINTS1 INTERPRETATIONNEGATIVE RECREATIONAL DRUG USE DRUG USE?NO CAFFEINE CAFFEINE USE?YES SWEET TEA HIV / HEP-C SCREENING HIV TEST OFFERED TO PATIENT:NO HEP-C TEST OFFERED TO PATIENT:NO OCCUPATION: DISABLED. EPISCOPAL [id number] PENTECOSTAL LANGUAGE LANGUAGES SPOKEN:FAROESE LEARNING BARRIERS / SPECIAL NEEDS CHANGE FROM LAST VISIT?NO BARRIERS TO LEARNING?NO HEARING IMPAIRED?NO VISION IMPAIRED?YES :CORRECTIVE LENSES COGNITIVELY IMPAIRED?NO READINESS TO LEARN?YES LEARNING PREFERENCES?NO LEARNING CAPABILITIES PRESENT?YES EMOTIONAL BARRIERS?NO SPECIAL DEVICES?NO LICENSED CLINICIAN NEEDED?NO NEW PATIENT PAIN DIARY TODAY'S VISIT NOTES, FROM 0-10, WHAT LEVEL IS YOUR PAIN TODAY? 0. PAIN CLINIC PFS, CLERGY, PUBLIC HEALTH REFERRALS PFS REFERRAL NEEDED?NO CLERGY REFERRAL NEEDED?NO PUBLIC HEALTH REFERRAL NEEDED?NO HAS THE PATIENT BEEN EDUCATED REGARDING HIS/HER PLAN OF CARE?YES HAS THE PATIENT BEEN EDUCATED REGARDING PAIN, THE RISK FOR PAIN, THE IMPORTANCE OF EFFECTIVE PAIN MANAGEMENT, AND THE PAIN ASSESSMENT PROCESS?YES ADVANCE DIRECTIVES HEALTH CARE PROXY?NO WOULD YOU LIKE MORE INFORMATION?NO DO YOU HAVE A DNR?NO WOULD YOU LIKE MORE INFORMATION?NO LIVING WILL?NO WOULD YOU LIKE MORE INFORMATION?NO POWER OF RN PHYSICIAN OFFICE?NO WOULD YOU LIKE MORE INFORMATION?NO REVIEW OF SYSTEMS REVIEWED BY: PROVIDER: MANSI RODRIGUEZ . CONSTITUTIONAL: ANY CHANGE IN YOUR MEDICAL CONDITION? NO . CHILLS NO . FEVER NO . INFECTION: DO YOU HAVE NEW INFECTIONS? NO . DO YOU HAVE HISTORY OF MRSA? NO . MUSCULOSKELETAL: ANY NEW PATTERNS OF PAIN OR NUMBNESS? NO . GASTROENTEROLOGY: ANY NEW CHANGE IN BOWEL CONTROL? NO . GENITOURINARY: ANY NEW CHANGE IN BLADDER CONTROL? NO . IS THERE A CHANCE YOU COULD BE ? NO . HEMATOLOGY/LYMPH: DO YOU TAKE ANY BLOOD THINNERS? (FOR EXAMPLE- COUMADIN, PLAVIX, AGGRENOX, PLATEL, PRADAXA, OR XARELTO) NO . WHEN WAS YOUR LAST DOSE? DATE: TIME: . NEUROLOGY: HAVE YOU FALLEN IN THE PAST 6 MONTHS? YES . ANY NEW EXTREMITY NUMBNESS OR WEAKNESS? NO . CARDIOLOGY: DO YOU HAVE A PACEMAKER OR DEFIBRILLATOR? NO . RESPIRATORY: HAVE YOU BEEN SICK IN THE PAST WEEK? NO . FEVER NO . FLU LIKE SYMPTOMS? NO . COUGH NO . INTEGUMENTARY: DO YOU HAVE ANY RASHES OR OPEN SORES? NO . ALLERGIC/IMMUNO: ARE YOU ALLERGIC TO SHELLFISH OR IV DYE? NO . ANY NEW ALLERGIES? NO . PSYCHIATRIC: DO YOU HAVE THOUGHTS OF HURTING YOURSELF OR SOMEONE ELSE? NO . ARE YOU ABUSED, NEGLECTED, OR IN AN UNSAFE ENVIRONMENT? NO . ENDOCRINOLOGY: ARE YOU DIABETIC? NO . OTHER: DO YOU NEED ANY PRESCRIPTIONS? YES . IF YES, PLEASE LIST: ____ . ANY NEW PROBLEMS WITH YOUR MEDICATIONS? NO . WHEN DID YOU LAST EAT? ____ . WHEN DID YOU LAST DRINK? ____ . WHAT DID YOU LAST DRINK? ____ . NAME OF PERSON DRIVING YOU HOME? ____ . DO YOU HAVE ANY OTHER QUESTIONS OR CONCERNS NO . PSYCHOLOGY: ANXIETY SEVERE WITH THE SITUALTION OF KNOWN PERSONS ENTERING HER HOME AND THE LOSS OF HER MEDS . VITAL SIGNS WT 209 LBS, HT 65 IN, BMI 34.78 INDEX, BP 134/80 MM HG, HR 115 /MIN, RR 16 /MIN, TEMP 97.9 F, OXYGEN SAT % 97%, NA INITIALS AW 1011, REVIEWED BY: CS. EXAMINATION GENERAL EXAMINATION: PSYCHALERT , ORIENTED X 3 , APPROPRIATE MOOD AND AFFECT, ANXIOUS. LUNGS:CLEAR TO AUSCULTATION BILATERALLY. HEART:HEART RATE REGULAR. MUSCULOSKELETAL:HYPERSENSITIVE TO ANY LIGHT TOUCH OVER UPPER AND LOWER BACK. STRUGGLES TO RISE TO STANDING POSITION. CANE USED FOR BALANCE. SWELLING OVER LEFT KNEE AND TROCANTER WITH TENDERNESS IN THIS AREA. GAIT SLOW, ANTALGIC. ASSESSMENTS LUMBAR RADICULOPATHY - M54.16 (PRIMARY) SACROILIITIS, NOT ELSEWHERE CLASSIFIED - M46.1 CERVICAL POST-LAMINECTOMY SYNDROME - M96.1 CHRONIC PRESCRIPTION OPIATE USE - Z79.891 TREATMENT LUMBAR RADICULOPATHY REFILL GABAPENTIN CAPSULE, 300 MG, 1 CAPSULE, ORALLY, THREE TIMES A DAY, 30 DAY(S), 90, REFILLS 3 REFILL NORCO TABLET, 5-325 MG, 1 TABLET NEEDED, ORALLY, EVERY 6 HRS PRN PAIN MDD=3, 15 DAYS, 45, REFILLS 0 NOTES: UTOX TODAYWILL CONSIDER MEDICAL MARIJUANA -. CLINICAL NOTES: ISTOP REGISTRY REVIEWED AND DEMNOSTRATES COMPLLIANCE. MEDICATIONS WERE REPORTED STOLEN AND POLICE REPORT PRESENTED. RISKS AND BENEFITS OF NARCOTIC/OPIOD MEDICATIONS WERE REVIEWED WITH PATIENT - THIS INCLUDES BUT IS NOT LIMITED TO RISK OF DEPENDANCE/DEVELOPMENT OF ADDICTION, MOOD DISTURBANCE AND DEPRESSION, OSTEOPOROSIS, HORMONAL AND LABIDAL CHANGES, RESPIRATORY DEPRESSION AND . PATIENT IS ADVISED NOT TO DRIVE WHILE ON THESE MEDICATIONS, RECENT URINE TOXICOLOGY REVIEWED. NO UNAUTHORIZED MEDICATIONS. NO ILLICIT SUBSTANCES AND PRESCRIBED MEDICATIONS WERE PRESENT. DISCUSSIO ALSO HELD WITH PATIENT REGARDING THE POTENTIAL FOR USE OF MEDICAL MARIJUANA FOR PAIN TREATMENT. PROCEDURE CODES FA211 ESTABILISHED PATIENT BUDDHIST FACILITY CHARGE DISPOSITION & COMMUNICATION FOLLOW UP 12-14 DAYS (REASON: MED MANAGEMNT) ELECTRONICALLY SIGNED BY KENNY JACOBS ON 10/23/2016 AT 01:19 PM EDT DISCLAIMER : THIS IS A VISIT SUMMARY EXTRACTED FROM THE [employer] CHART. IT IS NOT A COPY OF THE [employer] PROGRESS NOTE. ED
== END ==
LOC: M PAIN 10:20
PROVIDERS: ATTEND Nurse Practitioner Family
DX: G89.29 Other chronic pain (principal); M54.16 Radiculopathy, lumbar region; M46.1 Sacroiliitis, not elsewhere classified; M96.1 Postlaminectomy syndrome, not elsewhere classified; G40.409 Other generalized epilepsy and epileptic syndromes, not intractable, without status epilepticus; F17.210 Nicotine dependence, cigarettes, uncomplicated; E23.6 Other disorders of pituitary gland; Z79.891 Long term (current) use of opiate analgesic; Z79.1 Long term (current) use of non-steroidal anti-inflammatories (NSAID); Z79.899 Other long term (current) drug therapy; Z91.040 Latex allergy status; Z88.8 Allergy status to other drugs, medicaments and biological substances; Z91.048 Other nonmedicinal substance allergy status

== ENCOUNTER → 2017-01-28 | Outpatient (CLI) | payer MEDICAID, OTHER ==
--- NOTE | 2017-02-11 02:13 | ECWPNPC ---
PATIENT NAME: JOSEPH AVILEZ : 1975 GENDER: FEMALE VISIT DATE: 01/28/2017 DISCHARGE DATE: 01/28/17 1017 VISIT LOCKED DATE TIME: PHYSICIAN: MANSI VERA PHYSICIAN PAGER NO: TEXT TO [phone] RESOURCE: MANSI VERA HISTORY OF PRESENT ILLNESS HISTORY OF PRESENT ILLNESS: PAIN THE PATIENT DESCRIBES THE PAIN... FALL RISK SCREENING: SCREENING :NO FALLS IN THE PAST YEAR TODAY'S VISIT: NOTES: RATES PAIN TODAY 12/23. REPORTS A NUMBNESS/PINS AND NEEDLES SENSATION. STATES PAIN IS ACROSS THE NECK AND SHOULDERS AND LOWBACK WITH RADIATION TO RIGHT LEG. IS S/P LEFT SIJ 10/15/16. REPORTS SHE HAS NOT BEEN ABLE TO GET A RIDE TO APPOINTMENT AND THAT INSURANCE WAS NOT ACTIVE FOR A WHILE. IS USING A CANE TO WALK - STATES WALKED TO APPOINTMENT TODAY.. CURRENT MEDICATIONS TAKING NYSTATIN [id number] UNIT/GM POWDER 1 NULL TO AFFECTED AREA EXTERNALLY TWICE A DAY TAKING ZOLOFT 100 MG TABLET 2 TABS ORALLY ONCE A DAY TAKING AMITRIPTYLINE HCL 50 MG TABLET 1 TABLET ORALLY ONCE A DAY TAKING REFRESH OPTIVE 0.5-0.9 % SOLUTION OPHTHALMIC TAKING TOPIRAMATE 100 MG TABLET 1 TABLET ORALLY EVERY NIGHT TIME TAKING NORCO 5-325 MG TABLET 1 TABLET NEEDED ORALLY EVERY 6 HRS PRN PAIN MDD=3 TAKING IBUPROFEN 600 MG TABLET 1 TABLET ORALLY THREE TIMES A DAY NEEDED TAKING GABAPENTIN 300 MG CAPSULE 1 CAPSULE ORALLY THREE TIMES A DAY TAKING ROLLER WALKER - MISCELLANEOUS DIRECTED WITH WHEELS, SEAT AND BRAKE NOT-TAKING AMBIEN 10 MG TABLET 1 TAB(S) ORAL DAILY NEEDED NOT-TAKING VENTOLIN HFA 108 (90 BASE) MCG/ACT AEROSOL SOLUTION 2 PUFFS NEEDED INHALATION EVERY 4 HRS, NOTES: NONE RECENT NOT-TAKING SPACER/AERO CHAMBER MOUTHPIECE - MISCELLANEOUS DIRECTED - -, NOTES: N/A NOT-TAKING LIDOCAINE 4 % CREAM DIRECTED EXTERNALLY Q 6 HOURS TO PAINFUL AREAS LOW BACK AND NECK NOT-TAKING LEVOTHYROXINE SODIUM 25 MCG TABLET 1 TABLET ORALLY ONCE A DAY NOT-TAKING ZYRTEC ALLERGY 10 MG TABLET 1 TABLET NEEDED ORALLY ONCE A DAY NOT-TAKING CYCLOBENZAPRINE HCL 5 MG TABLET 1 TABLET NEEDED ORALLY THREE TIMES A DAY NOT-TAKING ZOFRAN ODT 4 MG TABLET DISPERSIBLE 1 TABLET ON THE TONGUE AND ALLOW TO DISSOLVE ORALLY EVERY 8 HRS MEDICATION LIST REVIEWED AND RECONCILED WITH THE PATIENT PAST MEDICAL HISTORY 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 ETT [facility] 04/30 NEG ISCHEMIA ECHO [facility]- 04/30- NML SYST AND DIASTOLIC FUNCTION 11/27 NSR, RARE ISOLATED PAC. EEG 09/15/14- NO EPILEPTIFORM ACTIVITY RATHKE'S CLEFT CYST- NCN FOLLOWING-REFERRED TO ENDOCRINOLOGY ALLERGIES EFFEXOR: WILD MOOD CHANGES MELA TO BIPOLAR I: SIDE EFFECTS LATEX (FOR ALLERGY USE ONLY): RASH: ALLERGY METHOCARBAMOL: LOWERS SEIZURE THRESHOLD: SIDE EFFECTS ADHESIVE: HIVES: ALLERGY SURGICAL HISTORY TUBAL LIGATION 2001 OVARY ON CYST RUPTERED 1993 APPENDECTOMY 09/26/13 C-5, C-6, C-7 DISKECTOMY, OSTEOPHYTECTOMY 01/2015 SOCIAL HISTORY GENERAL: TOBACCO USE ARE YOU A:CURRENT SMOKER ARE YOU INTERESTED IN QUITTING?THINKING ABOUT QUITTING SLOWLY DECREASING THE # OF CIGARETTES/DAY PREVIOUS QUIT ATTEMPTS?YES, WITHIN THE LAST 6 MONTHS. COUNSELED THE PATIENT ON SMOKING CESSATION, EDUCATION [id number]/15/2017 HOW MANY CIGARETTES A DAY DO YOU SMOKE?5 OR LESS HOW SOON AFTER YOU WAKE UP DO YOU SMOKE YOUR FIRST CIGARETTE?AFTER 60 MIN HOW OFTEN DO YOU SMOKE CIGARETTES?EVERY DAY PATIENT COUNSELED ON THE DANGERS OF TOBACCO USE AND URGED TO QUIT:01/28/2017 LUNG CANCER SCREENING SMOKING STATUS:CURRENT SMOKER BMI CARE GOAL FOLLOW-UP ABOVE NORMAL BMI FOLLOW-UPLIFESTYLE EDUCATION REGARDING DIET ALCOHOL SCREENING DID YOU HAVE A DRINK CONTAINING ALCOHOL IN THE PAST YEAR?YES HOW OFTEN DID YOU HAVE A DRINK CONTAINING ALCOHOL IN THE PAST YEAR?MONTHLY OR LESS (1 POINT) HOW MANY DRINKS DID YOU HAVE ON A TYPICAL DAY WHEN YOU WERE DRINKING IN THE PAST YEAR?1 OR 2 (0 POINTS) HOW OFTEN DID YOU HAVE SIX OR MORE DRINKS ON ONE OCCASION IN THE PAST YEAR?NEVER (0 POINTS) POINTS1 INTERPRETATIONNEGATIVE RECREATIONAL DRUG USE DRUG USE?NO CAFFEINE CAFFEINE USE?YES SWEET TEA HIV / HEP-C SCREENING HIV TEST OFFERED TO PATIENT:NO HEP-C TEST OFFERED TO PATIENT:NO OCCUPATION: DISABLED. 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 0. PAIN CLINIC PFS, CLERGY, PUBLIC HEALTH REFERRALS PFS REFERRAL NEEDED?NO CLERGY REFERRAL NEEDED?NO PUBLIC HEALTH REFERRAL NEEDED?NO HAS THE PATIENT BEEN EDUCATED REGARDING HIS/HER PLAN OF CARE?YES HAS THE PATIENT BEEN EDUCATED REGARDING PAIN, THE RISK FOR PAIN, THE IMPORTANCE OF EFFECTIVE PAIN MANAGEMENT, AND THE PAIN ASSESSMENT PROCESS?YES ADVANCE DIRECTIVES HEALTH CARE PROXY?NO WOULD YOU LIKE MORE INFORMATION?NO DO YOU HAVE A DNR?NO WOULD YOU LIKE MORE INFORMATION?NO LIVING WILL?NO WOULD YOU LIKE MORE INFORMATION?NO POWER OF PHARMACY TECHNICIAN INFUSION?NO WOULD YOU LIKE MORE INFORMATION?NO HOSPITALIZATION/MAJOR DIAGNOSTIC PROCEDURE CHILDBIRTH REVIEW OF SYSTEMS REVIEWED BY: PROVIDER: . CONSTITUTIONAL: ANY CHANGE IN YOUR MEDICAL CONDITION? NO . CHILLS NO . FEVER NO . INFECTION: DO YOU HAVE NEW INFECTIONS? NO . DO YOU HAVE HISTORY OF MRSA? NO . MUSCULOSKELETAL: ANY NEW PATTERNS OF PAIN OR NUMBNESS? NO . GASTROENTEROLOGY: ANY NEW CHANGE IN BOWEL CONTROL? NO . GENITOURINARY: ANY NEW CHANGE IN BLADDER CONTROL? NO . IS THERE A CHANCE YOU COULD BE ? NO . HEMATOLOGY/LYMPH: DO YOU TAKE ANY BLOOD THINNERS? (FOR EXAMPLE- COUMADIN, PLAVIX, AGGRENOX, PLATEL, PRADAXA, OR XARELTO) NO . WHEN WAS YOUR LAST DOSE? DATE: TIME: . NEUROLOGY: HAVE YOU FALLEN IN THE PAST 6 MONTHS? YES, PT STATES THAT SHE FALLS FREQUENTLY FROM PAIN WEAKNESS AND LOSS OF BALANCE, PT DENIES SEEKING MEDICAL TX FOR ANY INJURIES . ANY NEW EXTREMITY NUMBNESS OR WEAKNESS? NO . CARDIOLOGY: DO YOU HAVE A PACEMAKER OR DEFIBRILLATOR? NO . RESPIRATORY: HAVE YOU BEEN SICK IN THE PAST WEEK? NO . FEVER NO . FLU LIKE SYMPTOMS? NO . COUGH NO . INTEGUMENTARY: DO YOU HAVE ANY RASHES OR OPEN SORES? NO . ALLERGIC/IMMUNO: ARE YOU ALLERGIC TO SHELLFISH OR IV DYE? NO . ANY NEW ALLERGIES? NO . PSYCHIATRIC: DO YOU HAVE THOUGHTS OF HURTING YOURSELF OR SOMEONE ELSE? NO . ARE YOU ABUSED, NEGLECTED, OR IN AN UNSAFE ENVIRONMENT? NO . ENDOCRINOLOGY: ARE YOU DIABETIC? NO . OTHER: DO YOU NEED ANY PRESCRIPTIONS? YES, NOT SURE WHICH ONES, PT STATES SHE HAS TO PICK WHICH RX'S TO REFILL FOR $$ . IF YES, PLEASE LIST: ____ . ANY NEW PROBLEMS WITH YOUR MEDICATIONS? NO . WHEN DID YOU LAST EAT? ____ . WHEN DID YOU LAST DRINK? ____ . WHAT DID YOU LAST DRINK? ____ . NAME OF PERSON DRIVING YOU HOME? ____ . DO YOU HAVE ANY OTHER QUESTIONS OR CONCERNS NO . VITAL SIGNS WT 214.8 LBS, HT 65 IN, BMI 35.74 INDEX, BP 125/78 MM HG, HR 104 /MIN, RR 18 /MIN, TEMP 96.7 F, OXYGEN SAT % 96%, NA INITIALS TL 0908, REVIEWED BY: JUD. EXAMINATION GENERAL EXAMINATION: PSYCHALERT , ORIENTED X 3 , APPROPRIATE MOOD AND AFFECT, ANXIOUS. LUNGS:CLEAR TO AUSCULTATION BILATERALLY. HEART:HEART RATE REGULAR. MUSCULOSKELETAL:HYPERSENSITIVE TO ANY LIGHT TOUCH OVER UPPER AND LOWER BACK. STRUGGLES TO RISE TO STANDING POSITION. CANE USED FOR BALANCE. SWELLING OVER LEFT KNEE AND TROCANTER WITH TENDERNESS IN THIS AREA. GAIT SLOW, ANTALGIC. ASSESSMENTS LUMBAR RADICULOPATHY - M54.16 (PRIMARY) SACROILIITIS, NOT ELSEWHERE CLASSIFIED - M46.1 TREATMENT LUMBAR RADICULOPATHY REFILL GABAPENTIN CAPSULE, 300 MG, 1 CAPSULE, ORALLY, THREE TIMES A DAY, 30 DAY(S), 90, REFILLS 3 REFILL AMITRIPTYLINE HCL TABLET, 50 MG, 1 TABLET, ORALLY, BEFORE BEDTIME, 30 DAY(S), 30, REFILLS 1 INJECTION ANESTHETIC SACROILIAC JOINT PROCEDURE CODES FA211 ESTABILISHED PATIENT [facility] CHARGE DISPOSITION & COMMUNICATION FOLLOW UP AFTER INJECTION (REASON: CHECK AUTH FOR BILATERAL SIJ) ELECTRONICALLY SIGNED BY KENNY JACOBS ON 02/10/2017 AT 06:46 PM EST DISCLAIMER : THIS IS A VISIT SUMMARY EXTRACTED FROM THE [employer] CHART. IT IS NOT A COPY OF THE [employer] PROGRESS NOTE. ED
== END ==
LOC: M PAIN 09:00
PROVIDERS: ATTEND Nurse Practitioner Family
DX: G89.29 Other chronic pain (principal); M54.16 Radiculopathy, lumbar region; M46.1 Sacroiliitis, not elsewhere classified; E03.9 Hypothyroidism, unspecified; F17.210 Nicotine dependence, cigarettes, uncomplicated; J30.9 Allergic rhinitis, unspecified; E78.00 Pure hypercholesterolemia, unspecified; L23.1 Allergic contact dermatitis due to adhesives; Z88.8 Allergy status to other drugs, medicaments and biological substances; Z91.040 Latex allergy status; Z79.899 Other long term (current) drug therapy

== ENCOUNTER → 2017-02-03 | Outpatient (CLI) | payer OTHER ==
[~2017-02-03] MED LIST changes: +BUPIVACAINE HCL 0.25% 30 ML VIAL As Ordered ONE; +ISOVUE-M 300 61% 15ML VIAL (Q9967) As Ordered ONE; +LIDOCAINE 1% SDV INJ 30 ML VIAL As Ordered ONE; +TRIAMCINOLONE ACETONIDE SUSP 40 MG/ML VIAL (J3301) As Ordered ONE; +diazePAM 5 MG TAB As Ordered ONE; +oxyCODONE 5MG TAB As Ordered ONE
--- NOTE | 2017-02-03 15:54 | REP ---
Bilateral SI joints: Four views. Here history: Injection procedure for pain. 25 seconds of fluoroscopy time is reported. Findings: A sequence of four last image hold fluoroscopic spot radiographs of the SI joints document needle positions and contrast injection associated with SI joint injection procedure. Signed by Stewart Goetz MD 02/03/2017 03:45 P
--- NOTE | 2017-02-10 00:05 | ECWPNPC ---
PATIENT NAME: JOSEPH AVILEZ : 1975 GENDER: FEMALE VISIT DATE: 02/03/2017 DISCHARGE DATE: 02/03/17 1436 VISIT LOCKED DATE TIME: PHYSICIAN: DELTA GIBBS PHYSICIAN PAGER NO: TEXT TO [phone] RESOURCE: DELTA GIBBS REASON FOR APPOINTMENT 1. BILATERAL SIJ HISTORY OF PRESENT ILLNESS HISTORY OF PRESENT ILLNESS: PAIN THE PATIENT DESCRIBES THE PAIN... FALL RISK SCREENING: SCREENING :NO FALLS IN THE PAST YEAR CURRENT MEDICATIONS TAKING NYSTATIN [id number] UNIT/GM POWDER 1 NULL TO AFFECTED AREA EXTERNALLY TWICE A DAY, NOTES: NOT LATELY TAKING ZOLOFT 100 MG TABLET 2 TABS ORALLY ONCE A DAY, NOTES: RAN OUT / OVER 1 MONTH TAKING REFRESH OPTIVE 0.5-0.9 % SOLUTION OPHTHALMIC TAKING TOPIRAMATE 100 MG TABLET 1 TABLET ORALLY EVERY NIGHT TIME, NOTES: RAN OUT / ONE MONTH TAKING IBUPROFEN 600 MG TABLET 1 TABLET ORALLY THREE TIMES A DAY NEEDED, NOTES: 02/02/172199 TAKING ROLLER WALKER - MISCELLANEOUS DIRECTED WITH WHEELS, SEAT AND BRAKE TAKING GABAPENTIN 300 MG CAPSULE 1 CAPSULE ORALLY THREE TIMES A DAY, NOTES: 02/02/172199 TAKING AMITRIPTYLINE HCL 50 MG TABLET 1 TABLET ORALLY BEFORE BEDTIME, NOTES: 02/02/172199 TAKING AMBIEN 10 MG TABLET 1 TAB(S) ORAL DAILY NEEDED, NOTES: RAN OUT / 1IMONTH TAKING LEVOTHYROXINE SODIUM 25 MCG TABLET 1 TABLET ORALLY ONCE A DAY, NOTES: RAN OUT / 1IMONTH NOT-TAKING NORCO 5-325 MG TABLET 1 TABLET NEEDED ORALLY EVERY 6 HRS PRN PAIN MDD=3 NOT-TAKING VENTOLIN HFA 108 (90 BASE) MCG/ACT AEROSOL SOLUTION 2 PUFFS NEEDED INHALATION EVERY 4 HRS, NOTES: NONE RECENT NOT-TAKING SPACER/AERO CHAMBER MOUTHPIECE - MISCELLANEOUS DIRECTED - -, NOTES: N/A NOT-TAKING LIDOCAINE 4 % CREAM DIRECTED EXTERNALLY Q 6 HOURS TO PAINFUL AREAS LOW BACK AND NECK NOT-TAKING ZYRTEC ALLERGY 10 MG TABLET 1 TABLET NEEDED ORALLY ONCE A DAY NOT-TAKING CYCLOBENZAPRINE HCL 5 MG TABLET 1 TABLET NEEDED ORALLY THREE TIMES A DAY NOT-TAKING ZOFRAN ODT 4 MG TABLET DISPERSIBLE 1 TABLET ON THE TONGUE AND ALLOW TO DISSOLVE ORALLY EVERY 8 HRS MEDICATION LIST REVIEWED AND RECONCILED WITH THE PATIENT PAST MEDICAL HISTORY 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 ETT [facility] 04/30 NEG ISCHEMIA ECHO [facility]- 04/30- NML SYST AND DIASTOLIC FUNCTION 11/27 NSR, RARE ISOLATED PAC. EEG 09/15/14- NO EPILEPTIFORM ACTIVITY RATHKE'S CLEFT CYST- NCN FOLLOWING-REFERRED TO ENDOCRINOLOGY ALLERGIES EFFEXOR: WILD MOOD CHANGES MELA TO BIPOLAR I: SIDE EFFECTS LATEX (FOR ALLERGY USE ONLY): RASH: ALLERGY METHOCARBAMOL: LOWERS SEIZURE THRESHOLD: SIDE EFFECTS ADHESIVE: HIVES: ALLERGY REVIEW OF SYSTEMS REVIEWED BY: PROVIDER: . CONSTITUTIONAL: ANY CHANGE IN YOUR MEDICAL CONDITION? NO . CHILLS NO . FEVER NO . INFECTION: DO YOU HAVE NEW INFECTIONS? NO . DO YOU HAVE HISTORY OF MRSA? NO . MUSCULOSKELETAL: ANY NEW PATTERNS OF PAIN OR NUMBNESS? NO . GASTROENTEROLOGY: ANY NEW CHANGE IN BOWEL CONTROL? NO . GENITOURINARY: ANY NEW CHANGE IN BLADDER CONTROL? NO . IS THERE A CHANCE YOU COULD BE ? NO . HEMATOLOGY/LYMPH: DO YOU TAKE ANY BLOOD THINNERS? (FOR EXAMPLE- COUMADIN, PLAVIX, AGGRENOX, PLATEL, PRADAXA, OR XARELTO) NO . WHEN WAS YOUR LAST DOSE? DATE: TIME: . NEUROLOGY: HAVE YOU FALLEN IN THE PAST 6 MONTHS? NO . ANY NEW EXTREMITY NUMBNESS OR WEAKNESS? NO . CARDIOLOGY: DO YOU HAVE A PACEMAKER OR DEFIBRILLATOR? NO . RESPIRATORY: HAVE YOU BEEN SICK IN THE PAST WEEK? NO . FEVER NO . FLU LIKE SYMPTOMS? NO . COUGH NO . INTEGUMENTARY: DO YOU HAVE ANY RASHES OR OPEN SORES? NO . ALLERGIC/IMMUNO: ARE YOU ALLERGIC TO SHELLFISH OR IV DYE? NO . ANY NEW ALLERGIES? NO . PSYCHIATRIC: DO YOU HAVE THOUGHTS OF HURTING YOURSELF OR SOMEONE ELSE? NO . ARE YOU ABUSED, NEGLECTED, OR IN AN UNSAFE ENVIRONMENT? NO . ENDOCRINOLOGY: ARE YOU DIABETIC? NO . OTHER: DO YOU NEED ANY PRESCRIPTIONS? NO . IF YES, PLEASE LIST: ____ . ANY NEW PROBLEMS WITH YOUR MEDICATIONS? NO . WHEN DID YOU LAST EAT? 10PM . WHEN DID YOU LAST DRINK? 0900 . WHAT DID YOU LAST DRINK? [place] . NAME OF PERSON DRIVING YOU HOME? EDUARDA . DO YOU HAVE ANY OTHER QUESTIONS OR CONCERNS NO . VITAL SIGNS WT 214 LBS, HT 65 IN, BMI 35.61 INDEX, BP 114/68 MM HG, HR 77 /MIN, RR 18 /MIN, TEMP 97.2 F, OXYGEN SAT % 95%, NA INITIALS SC 12:01, REVIEWED BY: LS. ASSESSMENTS SACROILIITIS, NOT ELSEWHERE CLASSIFIED - M46.1 (PRIMARY) PROCEDURES PN SI PRE PROCEDURE DIAGNOSIS SACROILIITIS, SACROILIAC JOINT DYSFUNCTION POST PROCEDURE DIAGNOSIS SACROILIITIS, SACROILIAC JOINT DYSFUNCTION PROCEDURE BILATERAL SACROILIAC JOINT BLOCK SURGEON DR. DELTA GIBBS GLASS ROLLING MACHINE OPERATOR NONE ANESTHESIA LOCAL PRE PROCEDURE NOTE PATIENT WITH HISTORY OF CHRONIC LOW BACK PAIN. I EVALUATED THE PATIENT AND REVIEWED THE CHART. I WENT OVER THE RISKS, ALTERNATIVES, AND BENEFITS ASSOCIATED WITH THIS PROCEDURE. THE PATIENT WOULD LIKE TO PROCEED AND GAVE CONSENT TO PERFORM THE PROCEDURE. THE PATIENT DENIES UNEXPLAINABLE WEIGHT LOSS, FEVER, CHILLS, OR NEW CHANGES IN URINARY OR BOWEL CONTROL DESCRIPTION OF PROCEDURE THE PATIENT WAS BROUGHT TO THE PROCEDURE ROOM AND PLACED IN THE PRONE POSITION. THE LUMBOSACRAL AREA WAS CLEANED WITH CHLORAPREP SOLUTION AND DRAPED ASEPTICALLY. THE PROCEDURE WAS DONE UNDER STERILE CONDITIONS. I CHECKED LATERALITY AND THE LEVEL WHERE THE PROCEDURE WAS GOING TO BE PERFORMED WITH THE PATIENT AND THE SUPPORTING STAFF AT THE MOMENT OF THE TIME OUT IN THE PROCEDURE ROOM. UNDER FLUOROSCOPIC GUIDANCE, TARGET POINT WAS SELECTED AT THE LOWER BORDER OF THE RIGHT AND LEFT SACROILIAC JOINT. TARGET POINT WAS SELECTED AFTER MEDIAL ROTATION AND TILT OF THE MAGNIFIER OF THE C-ARM. LIDOCAINE WAS USED TO NUMB THE SKIN AND SUBCUTANEOUS TISSUE BELOW IT. A SPINAL NEEDLE, 22-GAUGE, WAS ADVANCED UNDER FLUOROSCOPIC GUIDANCE AND FOLLOWING PATIENT FEEDBACK UNTIL THE TARGET AREA WAS TOUCHED. THE POSITION OF THE NEEDLE WAS VERIFIED WITH AP AND LATERAL VIEWS. AFTER PROPER POSITION OF THE NEEDLE WAS ACHIEVED, ISOVUE M DYE 30%, 0.25 ML, WAS INJECTED SHOWING SPREAD OF THE DYE. THEN, A SOLUTION OF 20 MG OF KENALOG WAS INJECTED IN RIGHT JOINT WITH 3 ML OF BUPIVACAINE 0.125%. THERE WAS NO EVIDENCE OF BLOOD, PARESTHESIA OR CEREBROSPINAL FLUID DURING THE PROCEDURE. THE PATIENT WAS SENT TO THE RECOVERY ROOM. THE PATIENT WAS MOVING THE EXTREMITIES AND DOING WELL. THERE WAS NO COMPLICATION DURING THE PROCEDURE. FLUOROSCOPY TIME WAS 25 SECONDS POST PROCEDURE NOTE THE PATIENT WILL BE SEEN IN A FOLLOW UP IN THE NEXT FEW WEEKS. INSTRUCTIONS WERE GIVEN, QUESTIONS WERE ANSWERED, AND THE PATIENT EXPRESSED UNDERSTANDING AND AGREED WITH THE PLAN. I, YOSELIN HALE, DOCUMENTED THE ABOVE INFORMATION ACTING A SCRIBE FOR DR. GIBBS. I HAVE REVIEWED THE ABOVE DOCUMENT, WRITTEN BY YOSELIN BRANDON AND I VERIFY THAT IT IS ACCURATE DIAGNOSTIC IMAGING [facility] FLUORO GUIDANCE (PAIN)[id number] PROCEDURE CODES 53730 INJECT SACROILIAC JOINT, MODIFIERS: 50 [id number] RADXPS IN END [id number] PXD DISPOSITION & COMMUNICATION FOLLOW UP 3 WEEKS ELECTRONICALLY SIGNED BY DELTA GIBBS MD ON 02/09/2017 AT 02:20 PM EST DISCLAIMER : THIS IS A VISIT SUMMARY EXTRACTED FROM THE [employer] CHART. IT IS NOT A COPY OF THE [employer] PROGRESS NOTE. MTDDeena
== END ==
LOC: M PAIN 11:45
PROVIDERS: ATTEND Anesthesiology
DX: G89.29 Other chronic pain (principal); M46.1 Sacroiliitis, not elsewhere classified; M53.88 Other specified dorsopathies, sacral and sacrococcygeal region; E03.9 Hypothyroidism, unspecified; R40.0 Somnolence; J30.9 Allergic rhinitis, unspecified; E78.00 Pure hypercholesterolemia, unspecified; G40.909 Epilepsy, unspecified, not intractable, without status epilepticus; F17.200 Nicotine dependence, unspecified, uncomplicated; Z91.040 Latex allergy status; L23.1 Allergic contact dermatitis due to adhesives; Z88.8 Allergy status to other drugs, medicaments and biological substances; Z79.899 Other long term (current) drug therapy
CPT/HCPCS: 27096; J3301; Q9967

== ENCOUNTER → 2017-02-27 | Outpatient (CLI) | payer OTHER | LOC: M PAIN 11:00 | DX: M54.16 Radiculopathy, lumbar region (principal); M46.1 Sacroiliitis, not elsewhere classified; M79.7 Fibromyalgia; M51.26 Other intervertebral disc displacement, lumbar region; G40.909 Epilepsy, unspecified, not intractable, without status epilepticus; F17.210 Nicotine dependence, cigarettes, uncomplicated; E03.9 Hypothyroidism, unspecified; J30.81 Allergic rhinitis due to animal (cat) (dog) hair and dander; E78.00 Pure hypercholesterolemia, unspecified; L23.1 Allergic contact dermatitis due to adhesives; Z88.8 Allergy status to other drugs, medicaments and biological substances; Z91.040 Latex allergy status; Z91.81 History of falling; Z79.899 Other long term (current) drug therapy | CPT/HCPCS: G0463 ==

== ENCOUNTER → 2017-03-03 | Outpatient (REF) | payer OTHER ==
[~2017-03-03] MED LIST changes: -BUPIVACAINE HCL 0.25% 30 ML VIAL As Ordered ONE; -ISOVUE-M 300 61% 15ML VIAL (Q9967) As Ordered ONE; -LIDOCAINE 1% SDV INJ 30 ML VIAL As Ordered ONE; -TRIAMCINOLONE ACETONIDE SUSP 40 MG/ML VIAL (J3301) As Ordered ONE; -diazePAM 5 MG TAB As Ordered ONE; -oxyCODONE 5MG TAB As Ordered ONE
[2017-03-03 15:57] LABS: MEAN CORPUSCULAR HEMOGLOBIN 31.6 pg (27.0-33.0); MEAN CORPUSCULAR VOLUME 95.7 fl (80.0-96.0); PLATELET COUNT, AUTOMATED 298 10^3/uL (150-450); RED CELL DISTRIBUTION WIDTH 12.6 % (11.5-14.5); WHITE BLOOD COUNT 11.3 10^3/uL (4.0-10.0)
[2017-03-03 16:25] LABS: ALBUMIN 3.7 GM/DL (3.2-5.2); ALBUMIN/GLOBULIN RATIO 0.93 (1.00-1.93); ALKALINE PHOSPHATASE 121 U/L (45-117); ALT/SGPT 15 U/L (12-78); ANION GAP 7 MEQ/L (8-16); AST/SGOT 10 U/L (7-37); BILIRUBIN,TOTAL 0.2 MG/DL (0.2-1.0); BLOOD UREA NITROGEN 17 MG/DL (7-18); CALCIUM LEVEL 8.7 MG/DL (8.5-10.1); CARBON DIOXIDE LEVEL 27 MEQ/L (21-32); CHLORIDE LEVEL 107 MEQ/L (98-107); CHOLESTEROL LEVEL 196 MG/DL (<200); CREATININE FOR GFR 0.84 MG/DL (0.55-1.02); GLOMERULAR FILTRATION RATE > 60.0 (>58); GLUCOSE, FASTING 105 MG/DL (70-105); SODIUM LEVEL 141 MEQ/L (136-145); TOTAL PROTEIN 7.7 GM/DL (6.4-8.2); TRIGLYCERIDES LEVEL 130 MG/DL (<150)
== END ==
LOC: M SFHCPLAZ 12:41
PROVIDERS: ATTEND Hospitalist
DX: J30.9 Allergic rhinitis, unspecified (principal); E78.00 Pure hypercholesterolemia, unspecified; E03.9 Hypothyroidism, unspecified

== ENCOUNTER → 2017-03-19 | Outpatient (CLI) | payer OTHER ==
[~2017-03-19] MED LIST changes: -ACET50TAOT PO; -AMBI10TA PO; -AMIT50TA; -BACL10TA2; -CORTCRE TOP; -DICLOFENAC 75 MG PO; -GABA-282; -HM A10TA PO; -HYDR-3716 PO; -HYDR-3719; -IBUP-1022 PO; +ISOVUE-M 300 61% 15ML VIAL (Q9967) As Ordered; -LEVO25TA5; -LIDO1CRE2; +LIDOCAINE 1% SDV INJ 30 ML VIAL As Ordered; -METH75TA PO; -MILKSUS PO; -MULTTAB24 PO; -MUPI2CRE EX; -NORCOTAB PO; -OXYC1TAB23 PO; -ROBA750T4 PO; -SERT-138; -TOPI100T9; -TYLE325T5 PO; -ZOLO100T PO; -ZOLP10TA2; -ZONI100C2 PO; -[UNRECOGNIZED DRUG - CODE] PO; -[UNRECOGNIZED DRUG - CODE] XX; +diazePAM 5 MG TAB As Ordered; +methylPREDNISolone SUSP 40 MG/ML (DEPO-medrol) VIAL (J1030) As Ordered; +oxyCODONE 5MG TAB As Ordered
== END ==
LOC: M PAIN 10:15
DX: G89.29 Other chronic pain (principal); M51.16 Intervertebral disc disorders with radiculopathy, lumbar region; F17.210 Nicotine dependence, cigarettes, uncomplicated; F32.9 Major depressive disorder, single episode, unspecified; E03.9 Hypothyroidism, unspecified; Z79.899 Other long term (current) drug therapy; Z88.8 Allergy status to other drugs, medicaments and biological substances; Z91.048 Other nonmedicinal substance allergy status; J30.81 Allergic rhinitis due to animal (cat) (dog) hair and dander
CPT/HCPCS: J1030

== ENCOUNTER 2017-04-25 18:52 | Inpatient (IN) | payer OTHER, MEDICAID ==
[2017-04-25] MEDS ORDERED: NALOXONE INJ 2 MG/2 ML SYRINGE (J2310) As Ordered (19:01)
[2017-04-25] MEDS: NALOXONE INJ 2 MG/2 ML SYRINGE (J2310) IV (19:06)
[2017-04-25] MEDS: NS 1,000 ML IV (19:10)
[2017-04-25] MEDS ORDERED: MIDAZOLAM INJ 5 MG/ML VIAL (J2250) As Ordered (19:15)
[2017-04-25] MEDS: SUCCINYLCHOLINE INJ 200 MG/10 ML VIAL (J0330) IV (19:17)
[2017-04-25] MEDS ORDERED: SODIUM BICARBONATE 8.4% INJ 50 ML SYRINGE As Ordered (19:27)
[2017-04-25] MEDS ORDERED: POTASSIUM CHLORIDE INJ 20 MEQ in D5W/LR 1,000 ML IV (19:30)
[2017-04-25] MEDS ORDERED: MIDAZOLAM HCL 50 MG in D5W 40 ML IV (19:30)
[2017-04-25] MEDS ORDERED: MIDAZOLAM HCL 100 MG in D5W 80 ML IV (19:34)
[2017-04-25] MEDS: MIDAZOLAM INJ 2 MG/2 ML VIAL (J2250) IV (19:45)
[2017-04-25 19:46] LABS: ABG BASE EXCESS -5.6 (-2.0-2.0); ABG HCO3 19.9 MEQ/L (22.0-26.0); ABG O2 SATURATION 94.7 % (95.0-99.0); ABG PARTIAL PRESSURE CO2 39.1 mmHg (35.0-45.0); ABG PARTIAL PRESSURE O2 75.7 mmHg (75.0-100.0); ABG STANDARD HCO3 19.8 MEQ/L (22.0-26.0); ABG TOTAL CO2 21.1 MEQ/L (22.0-29.0); ABG pH (ARTERIAL) 7.324 UNITS (7.350-7.450)
[2017-04-25 20:02] LABS: OSMOLALITY SERUM 296 MOSM/KG (275-295)
[2017-04-25 20:06] LABS: BASO % 0.4 % (0.0-1.0); EOS # 0.1 10^3/uL (0.0-0.50); EOS % 1.3 % (0.0-3.0); HEMATOCRIT 45.3 % (36.0-47.0); HEMOGLOBIN 14.6 g/dl (12.0-16.0); IMMATURE GRANULOCYTE % 0.6 % (0-3.0); LYMPH # 2.5 10^3/uL (1.5-4.5); MEAN CORPUSCULAR HEMOGLOBIN 31.1 pg (27.0-33.0); MEAN CORPUSCULAR HGB CONC 32.2 g/dl (32.0-36.5); MEAN CORPUSCULAR VOLUME 96.4 fl (80.0-96.0); MONO # 0.4 10^3/uL (0.0-0.8); MONO % 4.7 % (0.0-5.0); NEUTROPHILS # 6.3 10^3/uL (1.8-7.7); PLATELET COUNT, AUTOMATED 279 10^3/uL (150-450); RED CELL DISTRIBUTION WIDTH 12.7 % (11.5-14.5); WHITE BLOOD COUNT 9.5 10^3/uL (4.0-10.0)
[2017-04-25 20:15] LABS: ALBUMIN 3.6 GM/DL (3.2-5.2); ALBUMIN/GLOBULIN RATIO 0.95 (1.00-1.93); ALKALINE PHOSPHATASE 112 U/L (45-117); ALT/SGPT 20 U/L (12-78); ANION GAP 7 MEQ/L (8-16); AST/SGOT 14 U/L (7-37); BILIRUBIN,DIRECT < 0.1 MG/DL (0.0-0.2); BILIRUBIN,TOTAL 0.2 MG/DL (0.2-1.0); BLOOD UREA NITROGEN 10 MG/DL (7-18); CALCIUM LEVEL 8.9 MG/DL (8.5-10.1); CARBON DIOXIDE LEVEL 25 MEQ/L (21-32); CHLORIDE LEVEL 109 MEQ/L (98-107); CREATININE FOR GFR 0.85 MG/DL (0.55-1.30); GLOMERULAR FILTRATION RATE > 60.0 (>58); GLUCOSE, FASTING 166 MG/DL (70-100); POTASSIUM SERUM 4.1 MEQ/L (3.5-5.1); SODIUM LEVEL 141 MEQ/L (136-145); TOTAL PROTEIN 7.4 GM/DL (6.4-8.2)
[2017-04-25 20:23] LABS: ETHYL ALCOHOL (ETHANOL) < 0.003 % (0.000-0.010)
[2017-04-25] MEDS ORDERED: ONDANSETRON 4MG/2ML VIAL (J2405) IV (20:30)
[2017-04-25] MEDS ORDERED: BISACODYL 5 MG TAB PO (20:30)
[2017-04-25] MEDS ORDERED: ALBUTEROL SULFATE 2.5 MG/0.5 ML INH NEB SOLN NEB (20:30)
[2017-04-25] MEDS: MIDAZOLAM HCL 100 MG in D5W 80 ML IV ×2 (20:40→21:00)
[2017-04-25 20:48] LABS: AMPHETAMINES LEVEL URINE NEGATIVE (NEGATIVE); BARBITURATES URINE NEGATIVE (NEGATIVE); BENZODIAZEPINES URINE NEGATIVE (NEGATIVE); CANNABINOIDS URINE POSITIVE (NEGATIVE); COCAINE METABOLITE URINE NEGATIVE (NEGATIVE); METHADONE URINE NEGATIVE (NEGATIVE); OPIATES URINE NEGATIVE (NEGATIVE); PHENCYCLIDINE URINE NEGATIVE (NEGATIVE)
[2017-04-25 20:49] LABS: LACTIC ACID SEPSIS PROTOCOL 1.9 MMOL/L (0.4-2.0)
[2017-04-25] MEDS: CHLORHEXIDINE ORAL RINSE 0.12%/15ML 120ML BOTTLE MT (21:00)
[2017-04-25] MEDS: SODIUM BICARBONATE 150 MEQ in D5W 1,000 ML IV (21:00)
[2017-04-25] MEDS ORDERED: REFRIGERATOR IV KEYS XX (21:00)
[2017-04-25] MEDS ORDERED: CHARCOAL ACTIVATED LIQUID 25 GM/120 ML BTL As Ordered (21:12)
[2017-04-25] MEDS: CHARCOAL ACTIVATED LIQUID 25 GM/120 ML BTL PO (21:25)
[2017-04-25] MEDS: KCL 10MEQ IN STERILE WATER 100ML IV ×2 (21:35→23:32)
[2017-04-25] MEDS: HEPARIN SOD (PORCINE) 5000 UNITS/ML VIAL SC (23:31)
[2017-04-25] MEDS: PANTOPRAZOLE 40MG INJ (PROTONIX) (C9113) IV (23:31)
[2017-04-26] MEDS: IPRATROPIUM 0.5MG/ALBUTEROL 2.5MG INH SOL UD 3ML (DUONEB)(J7620) NEB ×4 (00:03→11:21)
[2017-04-26 04:27] LABS: BASO % 0.2 % (0.0-1.0); EOS % 0.1 % (0.0-3.0); HEMATOCRIT 38.4 % (36.0-47.0); IMMATURE GRANULOCYTE % 0.4 % (0-3.0); LYMPH # 2.5 10^3/uL (1.5-4.5); LYMPH % 19.4 % (24.0-44.0); MEAN CORPUSCULAR HGB CONC 32.8 g/dl (32.0-36.5); MEAN CORPUSCULAR VOLUME 94.6 fl (80.0-96.0); MONO # 0.6 10^3/uL (0.0-0.8); NEUTROPHILS # 9.5 10^3/uL (1.8-7.7); NEUTROPHILS % 74.9 % (36.0-66.0); PLATELET COUNT, AUTOMATED 255 10^3/uL (150-450); RED BLOOD COUNT 4.06 10^6/uL (4.00-5.40); RED CELL DISTRIBUTION WIDTH 12.9 % (11.5-14.5); WHITE BLOOD COUNT 12.7 10^3/uL (4.0-10.0)
[2017-04-26 04:37] LABS: HEMOGLOBIN 12.6 g/dl (12.0-16.0)
[2017-04-26 04:53] LABS: ALBUMIN 2.8 GM/DL (3.2-5.2); ALBUMIN/GLOBULIN RATIO 0.78 (1.00-1.93); ALKALINE PHOSPHATASE 89 U/L (45-117); ALT/SGPT 14 U/L (12-78); ANION GAP 7 MEQ/L (8-16); AST/SGOT 11 U/L (7-37); BILIRUBIN,TOTAL 0.2 MG/DL (0.2-1.0); BLOOD UREA NITROGEN 8 MG/DL (7-18); CALCIUM LEVEL 7.8 MG/DL (8.5-10.1); CARBON DIOXIDE LEVEL 27 MEQ/L (21-32); CHLORIDE LEVEL 110 MEQ/L (98-107); CHOLESTEROL LEVEL 212 MG/DL (< 200); CPK CREATINE PHOSPHOKINASE 37 U/L (26-192); CREATININE FOR GFR 0.57 MG/DL (0.55-1.30); GLOMERULAR FILTRATION RATE > 60.0 (>58); GLUCOSE, FASTING 123 MG/DL (70-100); LDH LACTATE DEHYDROGENASE 119 U/L (84-246); MAGNESIUM LEVEL 2.1 MG/DL (1.8-2.4); PHOSPHORUS LEVEL 2.9 MG/DL (2.5-4.9); POTASSIUM SERUM 3.9 MEQ/L (3.5-5.1); SODIUM LEVEL 144 MEQ/L (136-145); TOTAL PROTEIN 6.4 GM/DL (6.4-8.2); TRIGLYCERIDES LEVEL 159 MG/DL (<150)
[2017-04-26] MEDS: HEPARIN SOD (PORCINE) 5000 UNITS/ML VIAL SC ×3 (06:03→22:51)
[2017-04-26] MEDS: MIDAZOLAM INJ 2 MG/2 ML VIAL (J2250) IV ×3 (06:03→10:30)
[2017-04-26] MEDS: MORPHINE 4 MG/ML 1ML VIAL (J2270) IV (07:41)
[2017-04-26 08:22] LABS: ABG BASE EXCESS 1.9 (-2.0-2.0); ABG O2 SATURATION 97.6 % (95.0-99.0); ABG PARTIAL PRESSURE O2 92.3 mmHg (75.0-100.0); ABG STANDARD HCO3 26.2 MEQ/L (22.0-26.0); ABG TOTAL CO2 27.2 MEQ/L (22.0-29.0); ABG pH (ARTERIAL) 7.442 UNITS (7.350-7.450)
[2017-04-26] MEDS: PROPOFOL 1,000 MG in APPROPRIATE DILUENT 1 EA IV ×2 (08:51→09:20)
[2017-04-26] MEDS: LR 1,000 ML IV ×2 (08:52→19:54)
[2017-04-26] MEDS: CHLORHEXIDINE ORAL RINSE 0.12%/15ML 120ML BOTTLE MT (08:57)
[2017-04-26] MEDS ORDERED: ALBUTEROL 90 MCG/ACT 8GM HFA INHALER INH (12:15)
[2017-04-26 13:07] LABS: SALICYLATE LEVEL 3.4 MG/DL (5.0-30.0)
[2017-04-26 13:12] LABS: ACETAMINOPHEN LEVEL < 2.0 UG/ML (10.0-30.0)
[2017-04-26 13:30] LABS: SALICYLATE LEVEL 2.1 MG/DL (5.0-30.0)
[2017-04-26 13:30] LABS: ACETAMINOPHEN LEVEL < 2.0 UG/ML (10.0-30.0)
[2017-04-26] MEDS: LIDOCAINE 5% (LIDODERM) PATCH TD (14:05)
[2017-04-26] MEDS ORDERED: ACETAMINOPHEN TAB 650MG DOSE (2X325MG) PO (14:30)
[2017-04-26 18:22] LABS: ABG BASE EXCESS 1.5 (-2.0-2.0); ABG HCO3 25.8 MEQ/L (22.0-26.0); ABG O2 SATURATION 97.4 % (95.0-99.0); ABG PARTIAL PRESSURE CO2 39.9 mmHg (35.0-45.0); ABG PARTIAL PRESSURE O2 89.8 mmHg (75.0-100.0); ABG STANDARD HCO3 25.8 MEQ/L (22.0-26.0); ABG TOTAL CO2 27.1 MEQ/L (22.0-29.0); ABG pH (ARTERIAL) 7.429 UNITS (7.350-7.450)
[2017-04-26] MEDS: PANTOPRAZOLE 40MG INJ (PROTONIX) (C9113) IV (20:02)
[2017-04-26] MEDS: **NOTE PATIENT COMMENT** MISC XX (20:04)
[2017-04-27 04:22] LABS: BASO % 0.2 % (0.0-1.0); EOS # 0.1 10^3/uL (0.0-0.50); EOS % 0.9 % (0.0-3.0); HEMATOCRIT 36.3 % (36.0-47.0); HEMOGLOBIN 11.6 g/dl (12.0-16.0); IMMATURE GRANULOCYTE % 0.5 % (0-3.0); LYMPH # 3.8 10^3/uL (1.5-4.5); LYMPH % 36.2 % (24.0-44.0); MEAN CORPUSCULAR HEMOGLOBIN 31.3 pg (27.0-33.0); MEAN CORPUSCULAR VOLUME 97.8 fl (80.0-96.0); MONO # 0.6 10^3/uL (0.0-0.8); NEUTROPHILS # 5.9 10^3/uL (1.8-7.7); NEUTROPHILS % 56.2 % (36.0-66.0); PLATELET COUNT, AUTOMATED 213 10^3/uL (150-450); RED BLOOD COUNT 3.71 10^6/uL (4.00-5.40); RED CELL DISTRIBUTION WIDTH 13.2 % (11.5-14.5); WHITE BLOOD COUNT 10.5 10^3/uL (4.0-10.0)
[2017-04-27 04:55] LABS: ALBUMIN 2.8 GM/DL (3.2-5.2); ALBUMIN/GLOBULIN RATIO 0.78 (1.00-1.93); ALKALINE PHOSPHATASE 90 U/L (45-117); ALT/SGPT 14 U/L (12-78); ANION GAP 6 MEQ/L (8-16); AST/SGOT 11 U/L (7-37); BILIRUBIN,TOTAL 0.4 MG/DL (0.2-1.0); BLOOD UREA NITROGEN 7 MG/DL (7-18); CALCIUM LEVEL 8.4 MG/DL (8.5-10.1); CARBON DIOXIDE LEVEL 26 MEQ/L (21-32); CHLORIDE LEVEL 107 MEQ/L (98-107); CHOLESTEROL LEVEL 208 MG/DL (< 200); CPK CREATINE PHOSPHOKINASE 44 U/L (26-192); CREATININE FOR GFR 0.64 MG/DL (0.55-1.30); GLOMERULAR FILTRATION RATE > 60.0 (>58); GLUCOSE, FASTING 96 MG/DL (70-100); LDH LACTATE DEHYDROGENASE 143 U/L (84-246); MAGNESIUM LEVEL 2.3 MG/DL (1.8-2.4); PHOSPHORUS LEVEL 2.9 MG/DL (2.5-4.9); POTASSIUM SERUM 3.7 MEQ/L (3.5-5.1); SODIUM LEVEL 139 MEQ/L (136-145); TOTAL PROTEIN 6.4 GM/DL (6.4-8.2); TRIGLYCERIDES LEVEL 137 MG/DL (<150)
[2017-04-27] MEDS: LEVOTHYROXINE 25MCG TABLET (0.025MG) PO (06:34)
[2017-04-27] MEDS: HEPARIN SOD (PORCINE) 5000 UNITS/ML VIAL SC ×3 (06:35→20:57)
[2017-04-27] MEDS: LIDOCAINE 5% (LIDODERM) PATCH TD (09:03)
[2017-04-27] MEDS: AMOXICILLIN 500 MG CAP PO ×3 (11:37→20:57)
[2017-04-27] MEDS: PANTOPRAZOLE 40MG INJ (PROTONIX) (C9113) IV (20:57)
[2017-04-27] MEDS: **NOTE PATIENT COMMENT** MISC XX (20:57)
[2017-04-28] MEDS: HEPARIN SOD (PORCINE) 5000 UNITS/ML VIAL SC (05:20)
[2017-04-28] MEDS: LEVOTHYROXINE 25MCG TABLET (0.025MG) PO (05:20)
[2017-04-28 07:19] LABS: BASO % 0.2 % (0.0-1.0); EOS # 0.2 10^3/uL (0.0-0.50); EOS % 1.3 % (0.0-3.0); HEMATOCRIT 36.9 % (36.0-47.0); HEMOGLOBIN 11.8 g/dl (12.0-16.0); IMMATURE GRANULOCYTE % 0.6 % (0-3.0); LYMPH # 2.3 10^3/uL (1.5-4.5); LYMPH % 18.8 % (24.0-44.0); MEAN CORPUSCULAR HEMOGLOBIN 30.9 pg (27.0-33.0); MEAN CORPUSCULAR VOLUME 96.6 fl (80.0-96.0); MONO # 0.6 10^3/uL (0.0-0.8); MONO % 5.1 % (0.0-5.0); NEUTROPHILS # 9.2 10^3/uL (1.8-7.7); PLATELET COUNT, AUTOMATED 229 10^3/uL (150-450); RED BLOOD COUNT 3.82 10^6/uL (4.00-5.40); WHITE BLOOD COUNT 12.4 10^3/uL (4.0-10.0)
[2017-04-28 07:39] LABS: ALBUMIN 2.9 GM/DL (3.2-5.2); ALBUMIN/GLOBULIN RATIO 0.76 (1.00-1.93); ALKALINE PHOSPHATASE 84 U/L (45-117); ALT/SGPT 14 U/L (12-78); ANION GAP 7 MEQ/L (8-16); AST/SGOT 15 U/L (7-37); BILIRUBIN,TOTAL 0.3 MG/DL (0.2-1.0); BLOOD UREA NITROGEN 11 MG/DL (7-18); CALCIUM LEVEL 8.4 MG/DL (8.5-10.1); CARBON DIOXIDE LEVEL 26 MEQ/L (21-32); CHLORIDE LEVEL 109 MEQ/L (98-107); CHOLESTEROL LEVEL 215 MG/DL (< 200); CPK CREATINE PHOSPHOKINASE 43 U/L (26-192); CREATININE FOR GFR 0.59 MG/DL (0.55-1.30); GLOMERULAR FILTRATION RATE > 60.0 (>58); GLUCOSE, FASTING 102 MG/DL (70-100); LDH LACTATE DEHYDROGENASE 162 U/L (84-246); MAGNESIUM LEVEL 2.3 MG/DL (1.8-2.4); PHOSPHORUS LEVEL 3.4 MG/DL (2.5-4.9); POTASSIUM SERUM 3.9 MEQ/L (3.5-5.1); SODIUM LEVEL 142 MEQ/L (136-145); TOTAL PROTEIN 6.7 GM/DL (6.4-8.2); TRIGLYCERIDES LEVEL 134 MG/DL (<150)
[2017-04-28] MEDS ORDERED: SODIUM CHLORIDE NASAL 0.65% SPRAY BTL (OCEAN) (08:15)
[2017-04-28] MEDS: LIDOCAINE 5% (LIDODERM) PATCH TD (11:18)
== END 2017-04-28 13:45 | DRG 812 ==
LOC: M MS5PR 04-27 13:15 → M ED 18:52 → M ED INP 20:23 → M ICU 22:59
PROC: 0BH17EZ Insertion of Endotracheal Airway into Trachea, Via Natural or Artificial Opening (ICD-10-PCS; principal; 2017-04-26)
PROC: 5A1935Z Respiratory Ventilation, Less than 24 Consecutive Hours (ICD-10-PCS; 2017-04-26)
DX: T43.012A Poisoning by tricyclic antidepressants, intentional self-harm, initial encounter (principal); J96.00 Acute respiratory failure, unspecified whether with hypoxia or hypercapnia; F32.9 Major depressive disorder, single episode, unspecified; T43.8X2A Poisoning by other psychotropic drugs, intentional self-harm, initial encounter; E03.9 Hypothyroidism, unspecified; T48.1X2A Poisoning by skeletal muscle relaxants [neuromuscular blocking agents], intentional self-harm, initial encounter; R00.0 Tachycardia, unspecified; F17.210 Nicotine dependence, cigarettes, uncomplicated; J01.00 Acute maxillary sinusitis, unspecified; Y92.009 Unspecified place in unspecified non-institutional (private) residence as the place of occurrence of the external cause; F43.10 Post-traumatic stress disorder, unspecified; G89.4 Chronic pain syndrome; M54.2 Cervicalgia; E66.9 Obesity, unspecified; M79.1 Myalgia; E78.00 Pure hypercholesterolemia, unspecified; Z88.8 Allergy status to other drugs, medicaments and biological substances; Z91.040 Latex allergy status; Z91.048 Other nonmedicinal substance allergy status; Z79.899 Other long term (current) drug therapy; Z68.36 Body mass index [BMI] 36.0-36.9, adult

== ENCOUNTER 2017-04-28 13:52 | Inpatient (IN) | payer MEDICAID ==
[~2017-04-28 13:52] MED LIST changes: +ACETAMINOPHEN TAB 650MG DOSE (2X325MG) PO; +ALBUTEROL 90 MCG/ACT 8GM HFA INHALER INH; +BISACODYL 5 MG TAB PO; -ISOVUE-M 300 61% 15ML VIAL (Q9967) As Ordered; -LIDOCAINE 1% SDV INJ 30 ML VIAL As Ordered; +MAALOX 30 ML SUSP *UDC PO; +MOM 30ML SUSPENSION UDC PO; +SODIUM CHLORIDE NASAL 0.65% SPRAY BTL (OCEAN); -diazePAM 5 MG TAB As Ordered; -methylPREDNISolone SUSP 40 MG/ML (DEPO-medrol) VIAL (J1030) As Ordered; -oxyCODONE 5MG TAB As Ordered
[2017-04-28] MEDS: DULoxetine 30 MG CAP (CYMBALTA) PO (17:25)
[2017-04-28] MEDS: diphenhydrAMINE CREAM 30GM TOP (21:10)
[2017-04-28] MEDS: **NOTE PATIENT COMMENT** MISC XX (21:55)
[2017-04-29] MEDS: LEVOTHYROXINE 25MCG TABLET (0.025MG) PO (06:20)
[2017-04-29] MEDS: DULoxetine 30 MG CAP (CYMBALTA) PO (09:30)
[2017-04-29] MEDS: LIDOCAINE 5% (LIDODERM) PATCH TD (09:31)
[2017-04-29] MEDS ORDERED: SENNA 8.6 MG TAB (SENOKOT) PO (09:45)
[2017-04-29 10:37] LABS: HEMATOCRIT 37.8 % (36.0-47.0); HEMOGLOBIN 12.3 g/dl (12.0-16.0); MEAN CORPUSCULAR HEMOGLOBIN 31.1 pg (27.0-33.0); MEAN CORPUSCULAR HGB CONC 32.5 g/dl (32.0-36.5); MEAN CORPUSCULAR VOLUME 95.7 fl (80.0-96.0); PLATELET COUNT, AUTOMATED 262 10^3/uL (150-450); RED BLOOD COUNT 3.95 10^6/uL (4.00-5.40); RED CELL DISTRIBUTION WIDTH 12.4 % (11.5-14.5); WHITE BLOOD COUNT 8.8 10^3/uL (4.0-10.0)
[2017-04-29 10:58] LABS: CONTROL LINE HCG INT CTR LINE PRESENT; HCG, SERUM QUALITATIVE NEGATIVE (NEGATIVE)
[2017-04-29] MEDS: QUEtiapine FUMARATE 25 MG TAB PO (20:30)
[2017-04-29] MEDS: **NOTE PATIENT COMMENT** MISC XX (20:32)
[2017-04-30] MEDS: LEVOTHYROXINE 25MCG TABLET (0.025MG) PO (06:10)
[2017-04-30] MEDS: LIDOCAINE 5% (LIDODERM) PATCH TD (09:11)
[2017-04-30] MEDS: DULoxetine 30 MG CAP (CYMBALTA) PO (09:11)
[2017-04-30] MEDS: ACETAMINOPHEN TAB 650MG DOSE (2X325MG) PO (09:23)
[2017-04-30] MEDS: GABAPENTIN 300 MG CAP PO ×2 (15:29→20:17)
[2017-04-30] MEDS: OLANZapine 5 MG TAB PO (15:30)
[2017-04-30] MEDS ORDERED: OLANZapine 5 MG TAB PO (17:45)
[2017-04-30] MEDS: QUEtiapine FUMARATE 25 MG TAB PO ×2 (18:55→20:17)
[2017-04-30] MEDS: **NOTE PATIENT COMMENT** MISC XX (20:17)
[2017-05-01] MEDS: LEVOTHYROXINE 25MCG TABLET (0.025MG) PO (06:15)
[2017-05-01] MEDS: QUEtiapine FUMARATE 25 MG TAB PO (08:50)
[2017-05-01] MEDS: GABAPENTIN 300 MG CAP PO (08:50)
[2017-05-01] MEDS: LIDOCAINE 5% (LIDODERM) PATCH TD (08:50)
[2017-05-01] MEDS: DULoxetine 30 MG CAP (CYMBALTA) PO (08:50)
== END 2017-05-01 14:20 | disposition home or self-care (01) | DRG 755 ==
LOC: M PSY 13:52
PROVIDERS: Psychiatry & Neurology Psychiatry
DX: F43.10 Post-traumatic stress disorder, unspecified (principal); F41.1 Generalized anxiety disorder; M54.2 Cervicalgia; E66.9 Obesity, unspecified; M79.7 Fibromyalgia; K59.00 Constipation, unspecified; E03.9 Hypothyroidism, unspecified; F60.3 Borderline personality disorder; F17.210 Nicotine dependence, cigarettes, uncomplicated; M54.40 Lumbago with sciatica, unspecified side; E78.00 Pure hypercholesterolemia, unspecified; J45.909 Unspecified asthma, uncomplicated; Z81.3 Family history of other psychoactive substance abuse and dependence; Z79.899 Other long term (current) drug therapy; Z91.040 Latex allergy status; Z91.048 Other nonmedicinal substance allergy status; Z91.018 Allergy to other foods; Z88.8 Allergy status to other drugs, medicaments and biological substances; Z91.5 Personal history of self-harm; Z62.810 Personal history of physical and sexual abuse in childhood

== ENCOUNTER → 2017-06-18 | Outpatient (CLI) | payer OTHER | LOC: M PAIN 14:00 | DX: M79.7 Fibromyalgia (principal); M54.16 Radiculopathy, lumbar region; M46.1 Sacroiliitis, not elsewhere classified; M51.26 Other intervertebral disc displacement, lumbar region; G40.901 Epilepsy, unspecified, not intractable, with status epilepticus; F17.210 Nicotine dependence, cigarettes, uncomplicated; J30.81 Allergic rhinitis due to animal (cat) (dog) hair and dander; Z79.899 Other long term (current) drug therapy; Z88.8 Allergy status to other drugs, medicaments and biological substances; Z91.041 Radiographic dye allergy status; Z91.09 Other allergy status, other than to drugs and biological substances | CPT/HCPCS: G0463 ==

== ENCOUNTER → 2017-07-06 | Outpatient (CLI) | payer OTHER ==
[2017-07-06 15:43] LABS: RHEUMATOID FACTOR QUANT < 10.0 IU/ML (<15.0)
[2017-07-06 16:33] LABS: ERYTHROCYTE SEDIMENTATION RATE 14 mm/hr (0-20)
[2017-07-07 10:51] LABS: DRVV SCREEN 39.4 SEC
[2017-07-07 11:10] LABS: PTT LUPUS TYPE ANTICOAG SCREEN 0.9 (0-1.2)
[2017-07-09 00:06] LABS: ANA (HEP2) Negative (.); Lyme Disease IgG/IgM Antibodie <0.91 ISR (0.00-0.90); Lyme Disease IgM Ab Quantitati <0.80 index (0.00-0.79)
== END ==
LOC: M LAB 14:23
DX: M54.16 Radiculopathy, lumbar region (principal)
CPT/HCPCS: 85730

== ENCOUNTER → 2017-07-06 | Outpatient (CLI) | payer OTHER ==
[~2017-07-06] MED LIST changes: -ACETAMINOPHEN TAB 650MG DOSE (2X325MG) PO; -ALBUTEROL 90 MCG/ACT 8GM HFA INHALER INH; -BISACODYL 5 MG TAB PO; +BUPIVACAINE HCL 0.25% 10 ML VIAL As Ordered; +BUPIVACAINE HCL 0.25% 30 ML VIAL As Ordered; -MAALOX 30 ML SUSP *UDC PO; -MOM 30ML SUSPENSION UDC PO; -SODIUM CHLORIDE NASAL 0.65% SPRAY BTL (OCEAN); +TRIAMCINOLONE ACETONIDE SUSP 40 MG/ML VIAL (J3301) As Ordered; +diazePAM 5 MG TAB As Ordered; +oxyCODONE 5MG TAB As Ordered
== END ==
LOC: M PAIN 15:00
DX: G89.29 Other chronic pain (principal); M79.1 Myalgia; F17.210 Nicotine dependence, cigarettes, uncomplicated; E23.6 Other disorders of pituitary gland; Z79.899 Other long term (current) drug therapy; Z88.8 Allergy status to other drugs, medicaments and biological substances; Z91.040 Latex allergy status; Z91.048 Other nonmedicinal substance allergy status
CPT/HCPCS: J3301

== ENCOUNTER → 2017-08-06 | Outpatient (CLI) | payer OTHER | LOC: M PAIN 11:30 | DX: M79.1 Myalgia (principal); M54.16 Radiculopathy, lumbar region; M46.1 Sacroiliitis, not elsewhere classified; M51.26 Other intervertebral disc displacement, lumbar region; G40.919 Epilepsy, unspecified, intractable, without status epilepticus; F17.210 Nicotine dependence, cigarettes, uncomplicated; J30.89 Other allergic rhinitis; Z79.899 Other long term (current) drug therapy; Z88.8 Allergy status to other drugs, medicaments and biological substances; Z91.09 Other allergy status, other than to drugs and biological substances; Z91.040 Latex allergy status | CPT/HCPCS: G0463 ==

== ENCOUNTER → 2017-08-12 | Outpatient (REF) | payer OTHER ==
[2017-08-13 11:33] LABS: CHLAMYDIA DNA AMPLIFICATION NEGATIVE (NEGATIVE); GC DNA AMPLIFICATION NEGATIVE (NEGATIVE)
[2017-08-15 14:10] LABS: HPV HYBRID CAPTURE II Negative (Negative)
== END ==
LOC: M SFHCPLAZ 10:40
DX: Z12.4 Encounter for screening for malignant neoplasm of cervix (principal)

== ENCOUNTER → 2017-09-17 | Outpatient (CLI) | payer OTHER | LOC: M PAIN 13:00 | DX: M96.1 Postlaminectomy syndrome, not elsewhere classified (principal); M79.1 Myalgia; M54.2 Cervicalgia; R22.1 Localized swelling, mass and lump, neck; K58.9 Irritable bowel syndrome, unspecified; F17.210 Nicotine dependence, cigarettes, uncomplicated; Z79.899 Other long term (current) drug therapy; Z88.8 Allergy status to other drugs, medicaments and biological substances; Z91.048 Other nonmedicinal substance allergy status; J30.81 Allergic rhinitis due to animal (cat) (dog) hair and dander; Z91.018 Allergy to other foods; Z91.040 Latex allergy status | CPT/HCPCS: G0463 ==

== ENCOUNTER → 2017-09-23 | Outpatient (CLI) | payer OTHER | LOC: M RAD 12:58 | DX: R22.1 Localized swelling, mass and lump, neck (principal) | CPT/HCPCS: 76536 ==

== ENCOUNTER → 2017-09-28 | Outpatient (CLI) | payer OTHER | LOC: M WHC 13:58 | DX: Z12.31 Encounter for screening mammogram for malignant neoplasm of breast (principal) | CPT/HCPCS: 77067 ==

== ENCOUNTER → 2017-09-30 | Outpatient (CLI) | payer OTHER ==
[2017-09-30 10:43] LABS: BASO % 0.2 % (0.0-1.0); EOS # 0.1 10^3/uL (0.0-0.50); EOS % 1.2 % (0.0-3.0); HEMATOCRIT 39.2 % (36.0-47.0); HEMOGLOBIN 13.1 g/dl (12.0-15.5); IMMATURE GRANULOCYTE % 0.5 % (0-3.0); LYMPH # 2.4 10^3/uL (1.5-4.5); LYMPH % 29.2 % (24.0-44.0); MEAN CORPUSCULAR HEMOGLOBIN 31.3 pg (27.0-33.0); MEAN CORPUSCULAR HGB CONC 33.4 g/dl (32.0-36.5); MEAN CORPUSCULAR VOLUME 93.8 fl (80.0-96.0); MONO # 0.6 10^3/uL (0.0-0.8); MONO % 6.9 % (0.0-5.0); PLATELET COUNT, AUTOMATED 243 10^3/uL (150-450); RED BLOOD COUNT 4.18 10^6/uL (4.00-5.40); RED CELL DISTRIBUTION WIDTH 13.2 % (11.5-14.5); WHITE BLOOD COUNT 8.1 10^3/uL (4.0-10.0)
[2017-09-30 11:13] LABS: CHOLESTEROL LEVEL 215 MG/DL (<200); CHOLESTEROL RISK RATIO 5.657 (<5); HDL CHOLESTEROL 38 MG/DL (>40); LDL CHOLESTEROL 149.4 MG/DL (<100); NON-HDL-C 177 MG/DL; TRIGLYCERIDES LEVEL 138 MG/DL (<150)
== END ==
LOC: M LAB 10:17
DX: R22.1 Localized swelling, mass and lump, neck (principal)
CPT/HCPCS: 84443

== ENCOUNTER → 2017-10-09 | Outpatient (CLI) | payer OTHER | LOC: M RAD 15:54 | DX: R22.1 Localized swelling, mass and lump, neck (principal) | CPT/HCPCS: 70450 ==

== ENCOUNTER → 2017-10-12 | Outpatient (CLI) | payer OTHER | LOC: M PAIN 11:15 | DX: G89.29 Other chronic pain (principal); M79.1 Myalgia; M54.2 Cervicalgia; M25.511 Pain in right shoulder; M25.512 Pain in left shoulder; M54.6 Pain in thoracic spine; G40.909 Epilepsy, unspecified, not intractable, without status epilepticus; E03.9 Hypothyroidism, unspecified; F17.200 Nicotine dependence, unspecified, uncomplicated; J30.81 Allergic rhinitis due to animal (cat) (dog) hair and dander; Z79.899 Other long term (current) drug therapy; Z88.8 Allergy status to other drugs, medicaments and biological substances; Z91.09 Other allergy status, other than to drugs and biological substances; Z91.040 Latex allergy status | CPT/HCPCS: J3301 ==

== ENCOUNTER 2018-05-27 16:32 | Emergency (ER) | payer OTHER ==
[~2018-05-27] VITALS: Ht 167.6 cm; Wt 111.2 kg
[~2018-05-27 16:32] MED LIST changes: +ACET500T15 PO; +AMBI10TA PO; +AMIT50TA; +BACL10TA2; -BUPIVACAINE HCL 0.25% 10 ML VIAL As Ordered; -BUPIVACAINE HCL 0.25% 30 ML VIAL As Ordered; +CORTCRE TOP; +DICLOFENAC 75 MG PO; +DULO30CA PO; +GABA-843; +GABA-843 PO; +HM A10TA PO; +HYDR-3716 PO; +HYDR-3719; +IBUP-1022 PO; +LEVO25TA5; +LIDO1CRE2; +METH75TA PO; +MILK120011 PO; +MULTTAB24 PO; +MUPI2CRE EX; +NORCOTAB PO; +OCEA0.654; +OXYC1TAB23 PO; +PATIENT COMMENTS; +QUET1TAB7 PO; +ROBA750T4 PO; +SERT-138; +TOPI100T9; -TRIAMCINOLONE ACETONIDE SUSP 40 MG/ML VIAL (J3301) As Ordered; +TYLE325T5 PO; +VENTAER INH; +ZOLO100T PO; +ZOLP10TA2; +ZONI100C2 PO; +[UNRECOGNIZED DRUG - CODE] PO; +[UNRECOGNIZED DRUG - CODE] XX; -diazePAM 5 MG TAB As Ordered; -oxyCODONE 5MG TAB As Ordered
--- NOTE | 2018-05-27 20:28 | REPVR ---
EXAM: CT Cervical Spine Without Contrast EXAM DATE/TIME: 05/27/2018 7:22 PM CLINICAL HISTORY: 43 years old, female; Pain; Neck pain; Prior surgery; Surgery date: 6+ months; Surgery type: Cervical fusion; Additional info: Neck pain feels hardware is loose TECHNIQUE: Axial computed tomography images of the cervical spine without intravenous contrast. All CT scans at this facility use at least one of these dose optimization techniques: automated exposure control; mA and/or kV adjustment per patient size (includes targeted exams where dose is matched to clinical indication); or iterative reconstruction. Coronal and sagittal reformatted images were created and reviewed. COMPARISON: CT Spine,cervical w/o contrast 09/05/2016 12:17 PM FINDINGS: Vertebrae: There is straightening of the normal cervical lordosis. The craniocervical junction is intact. There is anterior and interbody cervical fusion of C5-C7. The cancellus screws appear well-seated within the vertebral bodies without surrounding lucency. There is no acute fracture. Discs/Spinal canal/Neural foramina: Multilevel disc space narrowing and endplate osteophytosis. There is bilateral uncovertebral spurring at C5-C6 and C6-C7 causing mild bilateral neural foraminal narrowing. There is moderate left C4-C5 neural foraminal narrowing. Soft tissues: Unremarkable. Lungs: Lung apices are normal. IMPRESSION: 1. Status post ACDF of C5-C7 without evidence of hardware complication. 2. No fracture of the cervical spine. 3. Multilevel degenerative disease and neural foraminal narrowing. Electronically signed by: Jacqueline Varghese On 05/27/2018 20:28:21 PM
[2018-05-27] MEDS ORDERED: LIDOCAINE 5% (LIDODERM) PATCH TD ONE (20:45)
[2018-05-27] MEDS ORDERED: tiZANidine 4 MG TAB PO ONE (20:45)
[2018-05-27] MEDS ORDERED: LIDO5DIS41 TOP (20:47)
[2018-05-27] MEDS ORDERED: ZANA4CAP PO (20:47)
[2018-05-27 20:51] VITALS: BP 116/78
[2018-05-27] MEDS ORDERED: **NOTE PATIENT COMMENT** MISC XX SCH (21:00)
== END 2018-05-27 21:04 | disposition home or self-care (01) ==
LOC: M ED 16:32
DX: S13.4XXA Sprain of ligaments of cervical spine, initial encounter (principal); X50.9XXA Other and unspecified overexertion or strenuous movements or postures, initial encounter; Y92.89 Other specified places as the place of occurrence of the external cause; M54.30 Sciatica, unspecified side; G43.909 Migraine, unspecified, not intractable, without status migrainosus; F31.9 Bipolar disorder, unspecified; F43.10 Post-traumatic stress disorder, unspecified; Z98.1 Arthrodesis status; Z88.8 Allergy status to other drugs, medicaments and biological substances; Z91.040 Latex allergy status; Z91.048 Other nonmedicinal substance allergy status; Z91.018 Allergy to other foods; Z79.899 Other long term (current) drug therapy

== ENCOUNTER → 2018-10-29 | Outpatient (REF) | payer OTHER ==
[~2018-10-29] MED LIST changes: -DULO30CA PO; +DULO30CA9 PO; +HYDR-3715 PO; +LIDO5DIS41 TOP; +METH750T2 PO; -METH75TA PO; -NORCOTAB PO; +ZANA4CAP PO
[2018-10-29 11:36] LABS: HEMOGLOBIN 14.3 g/dl (12.0-15.5); MEAN CORPUSCULAR HEMOGLOBIN 32.2 pg (27.0-33.0); MEAN CORPUSCULAR HGB CONC 31.8 g/dl (32.0-36.5); MEAN CORPUSCULAR VOLUME 101.4 fl (80.0-96.0); PLATELET COUNT, AUTOMATED 280 10^3/uL (150-450); RED BLOOD COUNT 4.44 10^6/uL (4.00-5.40); WHITE BLOOD COUNT 8.4 10^3/uL (4.0-10.0)
[2018-10-29 11:46] LABS: INR 0.89; PROTHROMBIN TIME 11.7 SECONDS (11.8-14.0)
[2018-10-29 11:47] LABS: PARTIAL THROMBOPLASTIN TIME 34.2 SECONDS (25.0-38.4)
[2018-10-29 11:49] LABS: ALBUMIN 3.6 GM/DL (3.2-5.2); ALT/SGPT 23 U/L (12-78); BILIRUBIN,TOTAL 0.2 MG/DL (0.2-1.0); BLOOD UREA NITROGEN 12 MG/DL (7-18); CALCIUM LEVEL 8.9 MG/DL (8.5-10.1); CARBON DIOXIDE LEVEL 28 MEQ/L (21-32); CHLORIDE LEVEL 108 MEQ/L (98-107); CHOLESTEROL LEVEL 223 MG/DL (<200); CHOLESTEROL RISK RATIO 4.847 (<5); CREATININE FOR GFR 0.83 MG/DL (0.55-1.30); GLOMERULAR FILTRATION RATE > 60.0 (>58); GLUCOSE, FASTING 89 MG/DL (70-100); HDL CHOLESTEROL 46 MG/DL (>40); LDL CHOLESTEROL 145 MG/DL (<100); NON-HDL-C 177 MG/DL; POTASSIUM SERUM 4.3 MEQ/L (3.5-5.1); SODIUM LEVEL 142 MEQ/L (136-145); TOTAL PROTEIN 7.1 GM/DL (6.4-8.2); TRIGLYCERIDES LEVEL 160 MG/DL (<150)
[2018-10-29 12:29] LABS: HEPATITIS C VIRUS ABY INDEX 0.1 INDEX (<0.8); HIV 1&2 SCREEN CENTAUR NEGATIVE (NEGATIVE)
== END ==
LOC: M SFHCPLAZ 09:09
PROVIDERS: ATTEND Family Medicine
DX: E03.9 Hypothyroidism, unspecified (principal); E78.00 Pure hypercholesterolemia, unspecified; Z13.1 Encounter for screening for diabetes mellitus; Z11.9 Encounter for screening for infectious and parasitic diseases, unspecified; R23.8 Other skin changes

== ENCOUNTER 2018-11-06 16:43 | Emergency (ER) | payer OTHER ==
[~2018-11-06] VITALS: Ht 167.6 cm; Wt 104.5 kg
[2018-11-06] MEDS ORDERED: QUET1TAB8 PO (17:57)
[2018-11-06] MEDS ORDERED: CYMB1CAP5 PO (17:57)
[2018-11-06] MEDS ORDERED: QUET1TAB10 PO (17:57)
[2018-11-06] MEDS ORDERED: CETI10CH PO (17:57)
[2018-11-06] MEDS ORDERED: PRAZ2CAP PO (17:57)
[2018-11-06] MEDS ORDERED: TOPA100T12 PO (17:57)
[2018-11-06] MEDS ORDERED: DULO1CAP6 PO (17:57)
[2018-11-06] MEDS ORDERED: QUET1TAB7 PO (17:57)
[2018-11-06] MEDS ORDERED: METOCLOPRAMIDE INJ 10MG/2ML VIAL (J2765) IV ONE (18:00)
[2018-11-06] MEDS ORDERED: NS 1,000 ML IV ONE (18:00)
[2018-11-06 18:41] LABS: BASO % 0.4 % (0.0-1.0); EOS # 0.1 10^3/uL (0.0-0.50); EOS % 0.6 % (0.0-3.0); HEMATOCRIT 43.6 % (36.0-47.0); HEMOGLOBIN 14.3 g/dl (12.0-15.5); LYMPH # 3.6 10^3/uL (1.5-4.5); LYMPH % 34.3 % (24.0-44.0); MEAN CORPUSCULAR HEMOGLOBIN 31.2 pg (27.0-33.0); MEAN CORPUSCULAR HGB CONC 32.8 g/dl (32.0-36.5); MEAN CORPUSCULAR VOLUME 95.2 fl (80.0-96.0); MONO # 0.8 10^3/uL (0.0-0.8); MONO % 7.2 % (0.0-5.0); NEUTROPHILS # 6.1 10^3/uL (1.8-7.7); NEUTROPHILS % 57.2 % (36.0-66.0); PLATELET COUNT, AUTOMATED 287 10^3/uL (150-450); RED BLOOD COUNT 4.58 10^6/uL (4.00-5.40); WHITE BLOOD COUNT 10.6 10^3/uL (4.0-10.0)
[2018-11-06 19:07] LABS: ALBUMIN 3.9 GM/DL (3.2-5.2); ALT/SGPT 23 U/L (12-78); AMYLASE 34 U/L (25-115); BILIRUBIN,DIRECT < 0.1 MG/DL (0.0-0.2); BILIRUBIN,TOTAL 0.3 MG/DL (0.2-1.0); BLOOD UREA NITROGEN 11 MG/DL (7-18); CARBON DIOXIDE LEVEL 25 MEQ/L (21-32); CHLORIDE LEVEL 109 MEQ/L (98-107); CREATININE FOR GFR 0.71 MG/DL (0.55-1.30); ETHYL ALCOHOL (ETHANOL) < 0.003 % (0.000-0.010); GLOMERULAR FILTRATION RATE > 60.0 (>58); GLUCOSE, FASTING 97 MG/DL (70-100); HCG, SERUM QUANTITATIVE < 1.0 MIU/ML; LIPASE 110 U/L (73-393); POTASSIUM SERUM 3.6 MEQ/L (3.5-5.1); SODIUM LEVEL 139 MEQ/L (136-145); TOTAL PROTEIN 7.6 GM/DL (6.4-8.2)
--- NOTE | 2018-11-06 19:45 | REPVR ---
EXAM: CT Head Without Contrast EXAM DATE/TIME: 11/06/2018 7:13 PM CLINICAL HISTORY: 43 years old, female; Injury or trauma; Fall; Initial encounter; Blunt trauma (contusions or hematomas); Consciousness not specified; Additional info: Fall, loc, seizure TECHNIQUE: Imaging protocol: Computed tomography images of the head without contrast. Radiation optimization: All CT scans at this facility use at least one of these dose optimization techniques: automated exposure control; mA and/or kV adjustment per patient size (includes targeted exams where dose is matched to clinical indication); or iterative reconstruction. COMPARISON: CT Head without contrast 10/09/2017 4:04 PM FINDINGS: Brain: No intracranial hemorrhage or extra-axial fluid collection. No evidence of mass effect or midline shift. Adniel-white matter differentiation is intact. Ventricles: No ventriculomegaly. Bones/joints: No acute osseus lesion or fracture. Sinuses: Unremarkable as visualized. Mastoid air cells: Unremarkable. Soft tissues: Unremarkable. IMPRESSION: No acute intracranial pathology. Electronically signed by: Kolton Do On 11/06/2018 19:45:36 PM
--- NOTE | 2018-11-06 19:46 | REPVR ---
EXAM: CT Cervical Spine Without Contrast EXAM DATE/TIME: 11/06/2018 7:13 PM CLINICAL HISTORY: 43 years old, female; Injury or trauma; Fall; Initial encounter; Blunt trauma; Additional info: Fall, loc, seizure TECHNIQUE: Imaging protocol: Computed tomography images of the cervical spine without contrast. Radiation optimization: All CT scans at this facility use at least one of these dose optimization techniques: automated exposure control; mA and/or kV adjustment per patient size (includes targeted exams where dose is matched to clinical indication); or iterative reconstruction. COMPARISON: CT Spine,cervical w/o contrast 05/27/2018 7:15 PM FINDINGS: Vertebrae: Chronic postoperative changes compatible ACDF from C5-C7. Hardware is intact. Straightening of the cervical lordosis. Vertebral body heights are maintained. No locked or perched facets. No acute cervical spine fracture. The dens is intact. Atlanto-axial intervals are normal. Discs/Spinal canal/Neural foramina: Multilevel degenerative changes with intervertebral disc height loss and osteophyte formation. No significant spinal stenosis. Soft tissues: Unremarkable. Lungs: Lung apices are clear. IMPRESSION: No acute cervical spine fracture. Electronically signed by: Kolton Do On 11/06/2018 19:46:48 PM
[2018-11-06 21:04] LABS: AMPHETAMINES LEVEL URINE NEGATIVE (NEGATIVE); BARBITURATES URINE NEGATIVE (NEGATIVE); BENZODIAZEPINES URINE NEGATIVE (NEGATIVE); CANNABINOIDS URINE POSITIVE (NEGATIVE); COCAINE METABOLITE URINE NEGATIVE (NEGATIVE); METHADONE URINE NEGATIVE (NEGATIVE); OPIATES URINE NEGATIVE (NEGATIVE); PHENCYCLIDINE URINE NEGATIVE (NEGATIVE)
[2018-11-06 21:31] VITALS: BP 122/73
[2018-11-06] MEDS ORDERED: TOPIRAMATE (TopAMAX) 100 MG TAB PO STA (21:31)
[2018-11-09 14:29] LABS: TOPIRAMATE LEVEL None Detected ug/mL (2.0-25.0)
== END 2018-11-06 21:45 | disposition home or self-care (01) ==
LOC: EDBD 16:43 → M ED 16:43
DX: R56.9 Unspecified convulsions (principal); S09.90XA Unspecified injury of head, initial encounter; X58.XXXA Exposure to other specified factors, initial encounter; Y92.89 Other specified places as the place of occurrence of the external cause; M79.7 Fibromyalgia; G93.9 Disorder of brain, unspecified; E03.9 Hypothyroidism, unspecified; F17.200 Nicotine dependence, unspecified, uncomplicated; Z88.8 Allergy status to other drugs, medicaments and biological substances; Z91.048 Other nonmedicinal substance allergy status; Z91.040 Latex allergy status; Z91.018 Allergy to other foods
CPT/HCPCS: 70450; 72125; 80047; 80048; 80076; 80299; 80307; 82150; 83690; 84702; 85025; 93041; 96374; 99285; G0480; J2765

== ENCOUNTER → 2018-11-26 | Outpatient (REF) | payer OTHER ==
[~2018-11-26] MED LIST changes: +CETI10CH PO; +CYMB1CAP5 PO; +DULO1CAP6 PO; +PRAZ2CAP PO; +QUET1TAB10 PO; +QUET1TAB8 PO; +TOPA100T12 PO
== END ==
LOC: M SFHCPLAZ 12:11
PROVIDERS: ATTEND Family Medicine
DX: G25.81 Restless legs syndrome (principal); Z53.9 Procedure and treatment not carried out, unspecified reason

== ENCOUNTER → 2018-12-10 | Outpatient (REF) | payer OTHER ==
[2018-12-10 17:27] LABS: APPEARANCE, URINE CLEAR (CLEAR); BACTERIA, URINE AUTO NEGATIVE (NEGATIVE); BILIRUBIN, URINE AUTO NEGATIVE (NEGATIVE); BLOOD, URINE BLOOD NEGATIVE (NEGATIVE); COLOR, URINE YELLOW (YELLOW); GLUCOSE, URINE (UA) AUTO NEGATIVE (NEGATIVE); KETONE, URINE AUTO NEGATIVE (NEGATIVE); LEUKOCYTE ESTERASE, URINE AUTO NEGATIVE (NEGATIVE); NITRITE, URINE AUTO NEGATIVE (NEGATIVE); PROTEIN, URINE AUTO NEGATIVE (NEGATIVE); RBC, URINE AUTO 3 /HPF (0-3); SPECIFIC GRAVITY URINE AUTO 1.004 (1.002-1.035); SQUAMOUS EPITHELIAL CELL UR AU 1 /HPF (0-6); UROBILINOGEN, URINE AUTO 0.2 mg/dL (0.0-2.0); WBC, URINE AUTO 1 /HPF (0-3)
== END ==
LOC: M SFHCPLAZ 15:58
PROVIDERS: ATTEND Obstetrics & Gynecology
DX: N39.3 Stress incontinence (female) (male) (principal)

== ENCOUNTER → 2019-01-10 | Outpatient (CLI) | payer OTHER ==
--- NOTE | 2019-01-18 02:46 | ECWPNPC ---
PATIENT NAME: JOSEPH AVILEZ : 1975 GENDER: FEMALE VISIT DATE: 01/10/2019 DISCHARGE DATE: 01/10/19 1452 VISIT LOCKED DATE TIME: PHYSICIAN: DELTA GIBBS MD RESOURCE: DELTA GIBBS MD REASON FOR APPOINTMENT 1. FIBRO HISTORY OF PRESENT ILLNESS PAIN SCREENING: PATIENT HAS A COMPLAINT OF ACUTE OR CHRONIC PAIN :YES 43 YEAR OLD FEMALE PATIENT WITH A HISTORY OF CHRONIC MULTIPLE BODY AREA PAIN. THE PATIENT DESCRIBES THE PAIN ACHING, BURNING, SORE, TENDER, SHARP, STABBING, SHOOTING, PINS AND NEEDLES SENSATION, NUMBING, DAILY, AND CONTINUOUS WITH A PAIN SCORE OF 7-9/10 DEPENDING ON PHYSICAL ACTIVITY. THE PATIENT STATES HER MAIN PAIN IS IN HER THORACIC AND LOW BACK AREAS, WITH DAILY RADIATING PAIN, TINGLING, NUMBNESS, AND PINS AND NEEDLE SENSATION DOWN BOTH LEGS ESPECIALLY IN HER RIGHT LEG. THE PATIENT SAYS SHE HAS RECEIVED TRIGGER POINT INJECTIONS IN THE PAST THAT HAS HELPED WITH HER PAIN. PATIENT DENIES UNEXPLAINABLE WEIGHT LOSS, FEVER, CHILLS, NEW CHANGES ON HER URINARY OR BOWEL CONTROL. THE PATIENT MENTIONS SHE HAS URINARY INCONTINENCE AND WILL BE GETTING A BLADDER SLING. FALL RISK SCREENING: SCREENING :NO FALLS REPORTED IN THE LAST YEAR CURRENT MEDICATIONS TAKING REFRESH OPTIVE 0.5-0.9 % SOLUTION OPHTHALMIC , NOTES: 10/11 1300 TAKING NYSTATIN [id number] UNIT/GM POWDER 1 NULL TO AFFECTED AREA EXTERNALLY TWICE A DAY, NOTES: 10/10 TAKING CYMBALTA 60 MG CAPSULE DELAYED RELEASE PARTICLES 2 CAPSULES ORALLY ONCE A DAY, NOTES: 10/12 07 TAKING CYMBALTA 30 MG CAPSULE DELAYED RELEASE PARTICLES 1 CAPSULE ORALLY ONCE A DAY TAKING QUETIAPINE FUMARATE 200 MG TABLET 2 TABLET ORALLY TAKES 800 MG IN PM, NOTES: 10/12 07 TAKING QUETIAPINE FUMARATE 300 MG TABLET 2 TABLET AT BEDTIME ORALLY TAKES 800 MG IN PM ONCE A DAY TAKING PRAZOSIN HCL 2 MG CAPSULE 1 CAPSULE AT BEDTIME ORALLY ONCE A DAY, NOTES: 10/12 1999 TAKING VENTOLIN HFA 108 (90 BASE) MCG/ACT AEROSOL SOLUTION 2 PUFFS NEEDED INHALATION EVERY 4 HRS PRN, NOTES: 10/11 1799 TAKING LIDOCAINE 4 % CREAM 1 APPLICATION TO AFFECTED AREA NEEDED EXTERNALLY THREE TIMES A DAY TAKING LEVOTHYROXINE SODIUM 25 MCG TABLET 1 TABLET ON AN EMPTY STOMACH IN THE MORNING ORALLY ONCE A DAY TAKING KLONOPIN 0.5 MG TABLET 1 TABLET DAILY NEEDED ONCE A DAY TAKING PROPRANOLOL HCL 10 MG TABLET TAKE ONE TABLET BY MOUTH TWICE DAILY BOTTLE ORAL TAKING TOPIRAMATE 100 MG TABLET 1 TABLET ORALLY EVERY NIGHT TIME TAKING CETIRIZINE HCL 10 MG TABLET CHEWABLE 1 TABLET ORALLY ONCE A DAY TAKING ROLLER WALKER - MISCELLANEOUS DIRECTED WITH WHEELS, SEAT AND BRAKE , NOTES: USES IN WINTER AND DURING RAIN STORMS MEDICATION LIST REVIEWED AND RECONCILED WITH THE PATIENT PAST MEDICAL HISTORY GRAND MAL SEIZURES RT SHOULDER STRAIN- NCOG TOBACCO USE EKG PROLONGED QT INTERVAL PREOP APPENDECTOMY OTHERWISE NML- CARDIO EVALUATED- SEE NOTE. ETT [facility] 04/30 NEG ISCHEMIA ECHO [facility]- 04/30- NML SYST AND DIASTOLIC FUNCTION 11/27 NSR, RARE ISOLATED PAC. 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 10X 7.5 MM IBS QUANTITATIVE SOFTWARE ENGINEER: ORIANA RIVERA, ALLERGIES EFFEXOR: WILD MOOD CHANGES MELA TO BIPOLAR I - SIDE EFFECTS LATEX (FOR ALLERGY USE ONLY): RASH - ALLERGY METHOCARBAMOL: LOWERS SEIZURE THRESHOLD - SIDE EFFECTS ADHESIVE: HIVES - ALLERGY ENVIRONMENTAL (DOG, DANDER), TOMATOE: HIVES - ALLERGY SURGICAL HISTORY OVARY ON CYST RUPTERED 1993 TUBAL LIGATION 2001 APPENDECTOMY 09/26/13 C-5, C-6, C-7 DISKECTOMY, OSTEOPHYTECTOMY 01/2015 FAMILY HISTORY FATHER: UNKNOWN 71 YRS, CAD, S/P CABG, PANCREATIC CA MOTHER: ALIVE 63 YRS, CEREBRAL ANEURYSM, THYROID DISEASE, DIAGNOSED WITH OTHER SPECIFIED CONDITIONS INFLUENCING HEALTH STATUS SIBLINGS: ALIVE, SISTER (1) - NOT MUCH INFORMATION BROTHER (1) - NARCISSISTIC PERSONALITY DISORDER HALF- SISTERS (1) - 1 WITH DEPRESSION, PTSD, ANXIETY, CERVICAL CA, SON(S): ALIVE, SONS (3) - 1 WITH RAD A CHILD 1 BROTHER(S) , 2 SISTER(S) - HEALTHY. 3 SON(S) - HEALTHY. MOM-HYPOTHYROIDISM, BRAIN ANEURYSM,PSYCHIATRIC ISSUESONE SISTER WITH EMBOLISM. SOCIAL HISTORY GENERAL: TOBACCO USE ARE YOU A:CURRENT SMOKER ARE YOU INTERESTED IN QUITTING?READY TO QUIT HAS THE GUM AT HOME PREVIOUS QUIT ATTEMPTS?YES, WITHIN THE LAST 6 MONTHS. COUNSELED THE PATIENT ON TOBACCO USE, CESSATION [id number]/ HOW MANY CIGARETTES A DAY DO YOU SMOKE?5 OR LESS PATIENT COUNSELED ON THE DANGERS OF TOBACCO USE AND URGED TO QUIT:01/10/2019 SMOKING CESSATION INFORMATION GIVEN09/17/2017 HIV / HEP-C SCREENING HIV TEST OFFERED TO PATIENT:NO HEP-C TEST OFFERED TO PATIENT:NO OTHERS AT HOME: , NONE. EDUCATION LEVEL OF EDUCATION:HIGH SCHOOL DIET: REGULAR. LANGUAGE LANGUAGES SPOKEN:FRISIAN DOMESTIC VIOLENCE DO YOU FEEL SAFE IN YOUR ENVIRONMENT?YES NEW PATIENT PAIN DIARY TODAY'S VISITNOTES FROM 0-10, WHAT LEVEL IS YOUR PAIN TODAY?9 BMI CARE GOAL FOLLOW-UP ABOVE NORMAL BMI FOLLOW-UPLIFESTYLE EDUCATION REGARDING DIET RECREATIONAL DRUG USE DRUG USE?YES HOW OFTEN AND HOW MUCH? SMOKES ONCE OR TWICE A WEEK FOR PAIN MANAGEMENT EXERCISE: NO REGULAR EXERCISE. LEARNING BARRIERS / SPECIAL NEEDS CHANGE FROM LAST VISIT?NO BARRIERS TO LEARNING?NO HEARING IMPAIRED?NO VISION IMPAIRED?YES :CORRECTIVE LENSES COGNITIVELY IMPAIRED?NO QUANTITATIVE SOFTWARE ENGINEER COMES WITH HER TO APPOINTMENTS READINESS TO LEARN?YES LEARNING PREFERENCES?NO LEARNING CAPABILITIES PRESENT?YES EMOTIONAL BARRIERS?NO SPECIAL DEVICES?NO COARSE WIRE DRAWER NEEDED?NO LUNG CANCER SCREENING SMOKING STATUS:CURRENT SMOKER PAIN CLINIC PFS, CLERGY, PUBLIC HEALTH REFERRALS PFS REFERRAL NEEDED?NO CLERGY REFERRAL NEEDED?NO PUBLIC HEALTH REFERRAL NEEDED?NO WAS THE PROVIDER NOTIFIED OF ANY PERTINENT INFO? N/A HAS THE PATIENT BEEN EDUCATED REGARDING HIS/HER PLAN OF CARE?YES HAS THE PATIENT BEEN EDUCATED REGARDING PAIN, THE RISK FOR PAIN, THE IMPORTANCE OF EFFECTIVE PAIN MANAGEMENT, AND THE PAIN ASSESSMENT PROCESS?YES LATEX QUESTIONNAIRE LATEX ALLERGY : HAVE YOU EVER DEVELOPED ANY TYPE OF REACTION AFTER HANDLING LATEX PRODUCTS SUCH RUBBER GLOVES, CONDOMS, DIAPHRAGMS, BALLOONS, SOCKS, OR UNDERWEAR?YES LATEX ALLERGY : HAVE YOU EVER DEVELOPED ANY TYPE OF REACTION DURING OR AFTER DENTAL APPOINTMENT, VAGINAL/RECTAL EXAMINATION, SURGICAL PROCEDURE, OR ANY OTHER EXPOSURE?YES DATE ASKED : 11/12/2018 LATEX RISK : HAVE YOU EVER HAD ANY DIFFICULTY BREATHING OR HIVES AFTER EATING OR HANDLING ANY FRUITS, OR VEGETABLES; SUCH KIWI, BANANAS, STONE FRUITS, OR CHESTNUTSYES LATEX RISK : DO YOU HAVE A PREVIOUS PERSONAL HISTORY OF MORE THAN NINE SURGERIES, SPINA BIFIDA, OR REPEATED CATHERIZATIONS? NO LATEX RISK : ARE YOU FREQUENTLY EXPOSED TO LATEX PRODUCTS IN YOUR OCCUPATION?NO CAFFEINE CAFFEINE USE?YES 1 CUP PER DAY ADVANCE DIRECTIVE ADVANCE DIRECTIVE DISCUSSED WITH PATIENT:YES NO HCP, HAS THE PAPER WORK CONFUCIANIST [id number] ORTHODOX MARITAL STATUS: SINGLE. ALCOHOL SCREENING DID YOU HAVE A DRINK CONTAINING ALCOHOL IN THE PAST YEAR?NO POINTS0 INTERPRETATIONNEGATIVE OCCUPATION: DISABLED. SEXUAL HX HAD SEX IN THE LAST 12 MONTHS (VAGINAL, ORAL, OR ANAL)?YES WITHMEN ONLY HAVE YOU EVER HAD AN STD?YES GC?YES CHLAMYDIA?YES REVIEWED 06/18/17 1410 BV07/06 1515 REVIEWED AD10/12 1220 REVIEWED WITH PT. SHE WILL BRING HCP IN.01/10/19 REVIEWED WITH PATIENT LAS. HOSPITALIZATION/MAJOR DIAGNOSTIC PROCEDURE [facility] 04/26/17-05/01/17 NECK SURGERY REVIEW OF SYSTEMS REVIEWED BY: PROVIDER: DELTA GIBBS MD . CONSTITUTIONAL: ANY CHANGE IN YOUR MEDICAL CONDITION? NO . CHILLS NO . FEVER NO . INFECTION: DO YOU HAVE NEW INFECTIONS? NO . DO YOU HAVE HISTORY OF MRSA? NO . MUSCULOSKELETAL: ANY NEW PATTERNS OF PAIN OR NUMBNESS? NO . SYTEMIC LUPUS NO . GASTROENTEROLOGY: ANY NEW CHANGE IN BOWEL CONTROL? NO . BARRETTS ESOPHAGUS NO . CIRRHOSIS NO . HEPATITIS NO . LIVER FAILURE NO . ACID REFLUX YES . UNEXPLAINED WEIGHT LOSS NO . GENITOURINARY: ANY NEW CHANGE IN BLADDER CONTROL? YES SEEING A GUEST SERVICES ATTENDANT FOR A BLADDER SLING . IS THERE A CHANCE YOU COULD BE ? NO . HEMATOLOGY/LYMPH: DO YOU TAKE ANY BLOOD THINNERS? (FOR EXAMPLE- COUMADIN, PLAVIX, AGGRENOX, PLATEL, PRADAXA, OR XARELTO) NO . WHEN WAS YOUR LAST DOSE? DATE: TIME: . LOW PLATELET COUNT NO . SICKLE CELL DISEASE NO . VON WILLIEBRANDS NO . FACTOR V LEIDEN NO . THALLASEMIA NO . ANEMIA NO . EASY BRUISING NO . NEUROLOGY: HAVE YOU FALLEN IN THE PAST 12 MONTHS? YES PT REPORTS SOMETIMES HER LEGS ARE NUMB - "PINS AND NEEDLES" SHE FELL DOWN HER BASEMENT STAIRS, HIT HER HEAD. NO ED, NO XRAYS, PT DENIES INJURIES. FOLLOWED BY HER PRIMARY FOR FALLS/SEIZURES. . ANY NEW EXTREMITY NUMBNESS OR WEAKNESS? NO . HEAD INJURY NO . DEMENTIA NO . CEREBRAL PALSY NO . MULTIPLE SCLEROSIS NO . DIZZINESS NO . HEADACHE NO . STROKES NO . VERTIGO NO . CARDIOLOGY: DO YOU HAVE A PACEMAKER OR DEFIBRILLATOR? NO . ANGINA NO . HEART ATTACK NO . HEART SURGERY NO . CONGESTIVE HEART FAILURE/FLUID OVERLOAD NO . CHEST PAIN NO . HIGH BLOOD PRESSURE NO . IRREGULAR HEART BEAT HEART PALPITATIONS . RESPIRATORY: HAVE YOU BEEN SICK IN THE PAST WEEK? NO . FEVER NO . FLU LIKE SYMPTOMS? NO . CPAP NO . BYPAP NO . ASTHMA NO . EMPHYSEMA NO . CHRONIC LUNG DISEASES NO . SHORTNESS OF BREATH ON EXERTION NO . COUGH NO . SNORING YES . INTEGUMENTARY: DO YOU HAVE ANY RASHES OR OPEN SORES? NO . ALLERGIC/IMMUNO: ARE YOU ALLERGIC TO IV DYE? NO . ANY NEW ALLERGIES? NO . PSYCHIATRIC: DO YOU HAVE THOUGHTS OF HURTING YOURSELF OR SOMEONE ELSE? NO . ARE YOU ABUSED, NEGLECTED, OR IN AN UNSAFE ENVIRONMENT? NO . ENDOCRINOLOGY: ARE YOU DIABETIC? NO . THYROID DISORDER NO . OTHER: DO YOU NEED ANY PRESCRIPTIONS? NO . IF YES, PLEASE LIST: ____ . ANY NEW PROBLEMS WITH YOUR MEDICATIONS? NO . WHEN DID YOU LAST EAT? ____ . WHEN DID YOU LAST DRINK? ____ . WHAT DID YOU LAST DRINK? ____ . NAME OF PERSON DRIVING YOU HOME? ____ . DO YOU HAVE ANY OTHER QUESTIONS OR CONCERNS NO . VITAL SIGNS WT 231 LBS, HT 65 IN, BMI 38.44 INDEX, BP 135/54 MM HG, HR 73 /MIN, RR 18 /MIN, TEMP 97.8 F, OXYGEN SAT % 97%, SAFE IN ENV? (Y/N) YES, NA INITIALS SC 13:07, REVIEWED BY: ESTRELLITA. EXAMINATION GENERAL EXAMINATION: PATIENT IS ALERT O X 3 AND COOPERATIVE. LUNGS CLEAR, TO AUSCULTATION. HEART: NO MURMURS OR GALLOPS; FACIAL CRANIAL NERVES ARE GROSSLY NORMAL. GOOD SYMMETRY OF FACIAL MUSCLE MOVEMENT. NORMAL VISUAL [place]. ANTALGIC WALK. PATIENT IS LIMPING FROM THE RIGHT LEG. RIGHT LEG IS WEAKER AT EXTENSION AND FLEXION. STRAIGHT LEG RAISE OF THE RIGHT LEG IS POSITIVE FOR RADICULOPATHY. SEVERE TENDERNESS OVER THE CERVICAL, THORACIC, AND LOW BACK AREAS. PRESENCE OF BANDS OF TISSUE AND TRIGGER POINTS WITH RESTRICTION OF MOVEMENT OF THE CERVICAL, THORACIC, AND LOW BACK. CT SCAN OF THE THORACIC SPINE DONE ON 09/05/2016 SHOWS TRAUMA OVER VERTEBRAL BODY. MRI OF THE LUMBAR SPINE DONE ON 09/06/2016 SHOWS BULGING DISCS AT L2-L3, L4-L5, AND L5-S1. CERVICAL CT SCAN DONE ON 09/05/2016 SHOWS ANTERIOR CERVICAL DISCECTOMY EVIDENCE AT C5-C6 AND C6-C7. 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 BRASWELL'S PAIN MANAGEMENT CASE. DUE TO THE TRIGGER POINTS, BANDS OF TISSUE, AND RESTRICTION OF MOVEMENT, I WOULD LIKE TO MOVE FORWARD WITH A TRIGGER POINT INJECTION AT THIS TIME. WE DISCUSSED THE BENEFITS, RISKS, AND ALTERNATIVES OF THE INJECTION AND THE PATIENT WOULD LIKE TO PROCEED. I AM LOOKING FOR LONG LASTING PAIN RELIEF FROM THIS INJECTION FOR THE PATIENT. THE PATIENT HAS PAIN IN MULTIPLE AREAS OF HER BODY, THEREFORE WE WILL HAVE TO SEE WHAT HELPS AND BE CONSERVATIVE WITH INJECTIONS DUE TO CONCERNS OF USING TOO MUCH STEROIDS. THE PATIENT WILL FOLLOW UP IN SEVERAL WEEKS TO SEE HOW THE TRIGGER POINT INJECTION IS HELPING WITH HER PAIN. INSTRUCTIONS WERE GIVEN, QUESTIONS WERE ANSWERED, PATIENT REPORTS UNDERSTANDING AND AGREES WITH THE PLAN. I, DIONICIO AKBAR, DOCUMENTED THE ABOVE INFORMATION ACTING A SCRIBE FOR DR. GIBBS. I HAVE REVIEWED THE ABOVE DOCUMENT, WRITTEN BY DIONICIO VELARDEIBReginaldo AND I VERIFY THAT IT IS ACCURATE. DEAR ERWIN ALVAREZ, DO: THANK YOU FOR YOUR KIND REFERRAL OF JOSEPH AVILEZ. IF YOU WANT TO DISCUSS HER CASE WITH ME PLEASE CALL ME AT THE PAIN CENTER AT [phone]. SINCERELY, DELTA GIBBS MD PAIN MEDICINE . PROCEDURE CODES FA211 ESTABILISHED PATIENT [facility] CHARGE [id number] CURRENT MEDS W/DOSAGES DOCUMENTED [id number] PAIN ASSESS POS TOOL F/U PLAN DOC DISPOSITION & COMMUNICATION FOLLOW UP REASON: TPI ELECTRONICALLY SIGNED BY DELTA GIBBS MD, MD ON 01/17/2019 AT 11:01 AM EST DISCLAIMER : THIS IS A VISIT SUMMARY EXTRACTED FROM THE [employer] CHART. IT IS NOT A COPY OF THE [employer] PROGRESS NOTE. MTDD
== END ==
LOC: M PAIN 13:00
PROVIDERS: ATTEND Anesthesiology
DX: R52 Pain, unspecified (principal); M79.18 Myalgia, other site; M96.1 Postlaminectomy syndrome, not elsewhere classified; M51.16 Intervertebral disc disorders with radiculopathy, lumbar region; F17.210 Nicotine dependence, cigarettes, uncomplicated; G40.409 Other generalized epilepsy and epileptic syndromes, not intractable, without status epilepticus; E03.9 Hypothyroidism, unspecified; K58.9 Irritable bowel syndrome, unspecified; Z79.899 Other long term (current) drug therapy; Z91.040 Latex allergy status; Z91.048 Other nonmedicinal substance allergy status; Z88.8 Allergy status to other drugs, medicaments and biological substances

== ENCOUNTER → 2019-02-04 | Outpatient (CLI) | payer OTHER ==
[~2019-02-04] MED LIST changes: +BUPIVACAINE HCL 0.25% 10 ML VIAL As Ordered ONE; +BUPIVACAINE HCL 0.25% 30 ML VIAL As Ordered ONE; +TRIAMCINOLONE ACETONIDE SUSP 40 MG/ML VIAL (J3301) As Ordered ONE; +diazePAM 5 MG TAB As Ordered ONE; +oxyCODONE 5MG TAB As Ordered ONE
--- NOTE | 2019-02-23 03:32 | ECWPNPC ---
PATIENT NAME: JOSEPH AVILEZ : 1975 GENDER: FEMALE VISIT DATE: 02/04/2019 DISCHARGE DATE: 02/04/19 1235 VISIT LOCKED DATE TIME: PHYSICIAN: DELTA GIBBS MD RESOURCE: DELTA GIBBS MD REASON FOR APPOINTMENT 1. TPI HISTORY OF PRESENT ILLNESS HISTORY OF PRESENT ILLNESS: PAIN THE PATIENT DESCRIBES THE PAIN... FALL RISK SCREENING: SCREENING :NO FALLS REPORTED IN THE LAST YEAR CURRENT MEDICATIONS TAKING REFRESH OPTIVE 0.5-0.9 % SOLUTION OPHTHALMIC , NOTES: 02/04/19 AM TAKING NYSTATIN [id number] UNIT/GM POWDER 1 NULL TO AFFECTED AREA EXTERNALLY TWICE A DAY, NOTES: NONE RECENT TAKING CYMBALTA 60 MG CAPSULE DELAYED RELEASE PARTICLES 2 CAPSULES ORALLY ONCE A DAY, NOTES: 02/03/192099 TAKING CYMBALTA 30 MG CAPSULE DELAYED RELEASE PARTICLES 1 CAPSULE ORALLY ONCE A DAY, NOTES: 02/03/192099 TAKING QUETIAPINE FUMARATE 100 MG TABLET 2 TABLET ORALLY TAKES 800 MG IN PM, NOTES: 02/03/192099 TAKING QUETIAPINE FUMARATE 300 MG TABLET 2 TABLET AT BEDTIME ORALLY TAKES 800 MG IN PM ONCE A DAY, NOTES: 02/03/192099 TAKING PRAZOSIN HCL 2 MG CAPSULE 1 CAPSULE AT BEDTIME ORALLY ONCE A DAY, NOTES: 02/03/192099 TAKING VENTOLIN HFA 108 (90 BASE) MCG/ACT AEROSOL SOLUTION 2 PUFFS NEEDED INHALATION EVERY 4 HRS PRN, NOTES: 02/03/192099 TAKING KLONOPIN 0.5 MG TABLET 1 TABLET DAILY NEEDED ONCE A DAY, NOTES: 2 DAYS AGO TAKING PROPRANOLOL HCL 10 MG TABLET TAKE ONE TABLET BY MOUTH TWICE DAILY BOTTLE ORAL , NOTES: 02/03/192099 TAKING ROLLER WALKER - MISCELLANEOUS DIRECTED WITH WHEELS, SEAT AND BRAKE , NOTES: USES IN WINTER AND DURING RAIN STORMS TAKING TOPIRAMATE 100 MG TABLET 1 TABLET ORALLY EVERY NIGHT TIME, NOTES: 02/03/192099 TAKING LEVOTHYROXINE SODIUM 25 MCG TABLET 1 TABLET ON AN EMPTY STOMACH IN THE MORNING ORALLY ONCE A DAY, NOTES: 02/03/192099 TAKING CETIRIZINE HCL 10 MG TABLET CHEWABLE 1 TABLET ORALLY ONCE A DAY, NOTES: 02/03/192099 NOT-TAKING LIDOCAINE 4 % CREAM 1 APPLICATION TO AFFECTED AREA NEEDED EXTERNALLY THREE TIMES A DAY, NOTES: NONE RECENT MEDICATION LIST REVIEWED AND RECONCILED WITH THE PATIENT PAST MEDICAL HISTORY GRAND MAL SEIZURES RT SHOULDER STRAIN- NCOG TOBACCO USE EKG PROLONGED QT INTERVAL PREOP APPENDECTOMY OTHERWISE NML- CARDIO EVALUATED- SEE NOTE. ETT [facility] 04/[address] [facility]- 04/30- NML SYST AND DIASTOLIC FUNCTION 11/27 NSR, RARE ISOLATED PAC. 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 10X 7.5 MM IBS NEON MOLDER: ORIANA NICOLE, ALLERGIES EFFEXOR: WILD MOOD CHANGES MELA TO BIPOLAR I - SIDE EFFECTS LATEX (FOR ALLERGY USE ONLY): RASH - ALLERGY METHOCARBAMOL: LOWERS SEIZURE THRESHOLD - SIDE EFFECTS ADHESIVE: HIVES - ALLERGY ENVIRONMENTAL (DOG, DANDER), TOMATOE: HIVES - ALLERGY SURGICAL HISTORY OVARY ON CYST RUPTERED 1993 TUBAL LIGATION 2001 APPENDECTOMY 09/26/13 C-5, C-6, C-7 DISKECTOMY, OSTEOPHYTECTOMY 01/2015 FAMILY HISTORY FATHER: UNKNOWN 71 YRS, CAD, S/P CABG, PANCREATIC CA MOTHER: ALIVE 63 YRS, CEREBRAL ANEURYSM, THYROID DISEASE, DIAGNOSED WITH OTHER SPECIFIED CONDITIONS INFLUENCING HEALTH STATUS SIBLINGS: ALIVE, SISTER (1) - NOT MUCH INFORMATION BROTHER (1) - NARCISSISTIC PERSONALITY DISORDER HALF- SISTERS (1) - 1 WITH DEPRESSION, PTSD, ANXIETY, CERVICAL CA, SON(S): ALIVE, SONS (3) - 1 WITH RAD A CHILD 1 BROTHER(S) , 2 SISTER(S) - HEALTHY. 3 SON(S) - HEALTHY. MOM-HYPOTHYROIDISM, BRAIN ANEURYSM,PSYCHIATRIC ISSUESONE SISTER WITH EMBOLISM. SOCIAL HISTORY GENERAL: TOBACCO USE ARE YOU A:CURRENT SMOKER HOW MANY CIGARETTES A DAY DO YOU SMOKE?5 OR LESS ARE YOU INTERESTED IN QUITTING?READY TO QUIT HAS THE GUM AT HOME PATIENT COUNSELED ON THE DANGERS OF TOBACCO USE AND URGED TO QUIT:01/10/2019 COUNSELED THE PATIENT ON TOBACCO USE, CESSATION [id number]/27/2019 SMOKING CESSATION INFORMATION GIVEN09/17/2017 PREVIOUS QUIT ATTEMPTS?YES, WITHIN THE LAST 6 MONTHS. HIV / HEP-C SCREENING HIV TEST OFFERED TO PATIENT:NO HEP-C TEST OFFERED TO PATIENT:NO OTHERS AT HOME: , NONE. EDUCATION LEVEL OF EDUCATION:HIGH SCHOOL DIET: REGULAR. LANGUAGE LANGUAGES SPOKEN:BRITISH VIRGIN ISLANDER DOMESTIC VIOLENCE DO YOU FEEL SAFE IN YOUR ENVIRONMENT?YES NEW PATIENT PAIN DIARY TODAY'S VISITNOTES FROM 0-10, WHAT LEVEL IS YOUR PAIN TODAY?9 BMI CARE GOAL FOLLOW-UP ABOVE NORMAL BMI FOLLOW-UPLIFESTYLE EDUCATION REGARDING DIET RECREATIONAL DRUG USE DRUG USE?YES HOW OFTEN AND HOW MUCH? SMOKES ONCE OR TWICE A WEEK FOR PAIN MANAGEMENT EXERCISE: NO REGULAR EXERCISE. LEARNING BARRIERS / SPECIAL NEEDS CHANGE FROM LAST VISIT?NO BARRIERS TO LEARNING?NO HEARING IMPAIRED?NO VISION IMPAIRED?YES COGNITIVELY IMPAIRED?NO NEON MOLDER COMES WITH HER TO APPOINTMENTS :CORRECTIVE LENSES READINESS TO LEARN?YES LEARNING PREFERENCES?NO LEARNING CAPABILITIES PRESENT?YES EMOTIONAL BARRIERS?NO SPECIAL DEVICES?NO POLICE JUSTICE NEEDED?NO LUNG CANCER SCREENING SMOKING STATUS:CURRENT SMOKER PAIN CLINIC PFS, CLERGY, PUBLIC HEALTH REFERRALS PFS REFERRAL NEEDED?NO CLERGY REFERRAL NEEDED?NO PUBLIC HEALTH REFERRAL NEEDED?NO WAS THE PROVIDER NOTIFIED OF ANY PERTINENT INFO? N/A HAS THE PATIENT BEEN EDUCATED REGARDING HIS/HER PLAN OF CARE?YES HAS THE PATIENT BEEN EDUCATED REGARDING PAIN, THE RISK FOR PAIN, THE IMPORTANCE OF EFFECTIVE PAIN MANAGEMENT, AND THE PAIN ASSESSMENT PROCESS?YES LATEX QUESTIONNAIRE LATEX ALLERGY : HAVE YOU EVER DEVELOPED ANY TYPE OF REACTION AFTER HANDLING LATEX PRODUCTS SUCH RUBBER GLOVES, CONDOMS, DIAPHRAGMS, BALLOONS, SOCKS, OR UNDERWEAR?YES LATEX ALLERGY : HAVE YOU EVER DEVELOPED ANY TYPE OF REACTION DURING OR AFTER DENTAL APPOINTMENT, VAGINAL/RECTAL EXAMINATION, SURGICAL PROCEDURE, OR ANY OTHER EXPOSURE?YES DATE ASKED : 11/12/2018 LATEX RISK : HAVE YOU EVER HAD ANY DIFFICULTY BREATHING OR HIVES AFTER EATING OR HANDLING ANY FRUITS, OR VEGETABLES; SUCH KIWI, BANANAS, STONE FRUITS, OR CHESTNUTSYES LATEX RISK : DO YOU HAVE A PREVIOUS PERSONAL HISTORY OF MORE THAN NINE SURGERIES, SPINA BIFIDA, OR REPEATED CATHERIZATIONS? NO LATEX RISK : ARE YOU FREQUENTLY EXPOSED TO LATEX PRODUCTS IN YOUR OCCUPATION?NO CAFFEINE CAFFEINE USE?YES 1 CUP PER DAY ADVANCE DIRECTIVE ADVANCE DIRECTIVE DISCUSSED WITH PATIENT:YES NO HCP, HAS THE PAPER WORK, DECLINES ASSISTANCE WITH FORM TODAY 02/04/19 ORTHODOXY [id number] CONGREGATIONAL MARITAL STATUS: SINGLE. ALCOHOL SCREENING DID YOU HAVE A DRINK CONTAINING ALCOHOL IN THE PAST YEAR?NO POINTS0 INTERPRETATIONNEGATIVE OCCUPATION: DISABLED. SEXUAL HX HAD SEX IN THE LAST 12 MONTHS (VAGINAL, ORAL, OR ANAL)?YES WITHMEN ONLY HAVE YOU EVER HAD AN STD?YES GC?YES CHLAMYDIA?YES REVIEWED 06/18/17 1410 BV07/06 1515 REVIEWED AD10/12 1220 REVIEWED WITH PT. SHE WILL BRING HCP IN.01/10/19 REVIEWED WITH PATIENT LAS02/04/19 1105 REVIEWED WITH PATIENT BV. HOSPITALIZATION/MAJOR DIAGNOSTIC PROCEDURE [facility] 04/26/17-05/01/17 NECK SURGERY REVIEW OF SYSTEMS REVIEWED BY: PROVIDER: . CONSTITUTIONAL: ANY CHANGE IN YOUR MEDICAL CONDITION? NO . CHILLS NO . FEVER NO . INFECTION: DO YOU HAVE NEW INFECTIONS? NO . DO YOU HAVE HISTORY OF MRSA? NO . MUSCULOSKELETAL: ANY NEW PATTERNS OF PAIN OR NUMBNESS? NO . GASTROENTEROLOGY: ANY NEW CHANGE IN BOWEL CONTROL? NO . GENITOURINARY: ANY NEW CHANGE IN BLADDER CONTROL? NO . IS THERE A CHANCE YOU COULD BE ? NO . HEMATOLOGY/LYMPH: DO YOU TAKE ANY BLOOD THINNERS? (FOR EXAMPLE- COUMADIN, PLAVIX, AGGRENOX, PLATEL, PRADAXA, OR XARELTO) NO . WHEN WAS YOUR LAST DOSE? DATE: TIME: . NEUROLOGY: HAVE YOU FALLEN IN THE PAST 12 MONTHS? YES, PT STATES SHE HAS HAD A FEW FALLS SINCE LAST VISIT. STATES SHE HAD BUMPS AND BRUISES FROM THE FALLS, BUT DENIES ANY OTHER INJURIES AND DENIES ANY ED VISIT. . ANY NEW EXTREMITY NUMBNESS OR WEAKNESS? NO . CARDIOLOGY: DO YOU HAVE A PACEMAKER OR DEFIBRILLATOR? NO . RESPIRATORY: HAVE YOU BEEN SICK IN THE PAST WEEK? NO . FEVER NO . FLU LIKE SYMPTOMS? NO . COUGH NO . INTEGUMENTARY: DO YOU HAVE ANY RASHES OR OPEN SORES? NO . ALLERGIC/IMMUNO: ARE YOU ALLERGIC TO IV DYE? NO . ANY NEW ALLERGIES? NO . PSYCHIATRIC: DO YOU HAVE THOUGHTS OF HURTING YOURSELF OR SOMEONE ELSE? NO . ARE YOU ABUSED, NEGLECTED, OR IN AN UNSAFE ENVIRONMENT? NO . ENDOCRINOLOGY: ARE YOU DIABETIC? NO . OTHER: DO YOU NEED ANY PRESCRIPTIONS? NO . IF YES, PLEASE LIST: ____ . ANY NEW PROBLEMS WITH YOUR MEDICATIONS? NO . WHEN DID YOU LAST EAT? ____ . WHEN DID YOU LAST DRINK? ____ . WHAT DID YOU LAST DRINK? ____ . NAME OF PERSON DRIVING YOU HOME? ____ . DO YOU HAVE ANY OTHER QUESTIONS OR CONCERNS NO . VITAL SIGNS WT 230.2 LBS, HT 65 IN, BMI 38.30 INDEX, BP 119/58 MM HG, HR 77 /MIN, RR 18 /MIN, TEMP 96.8 F, OXYGEN SAT % 96%, NA INITIALS SC 10:47, REVIEWED BY: BV. ASSESSMENTS MYALGIA, OTHER SITE - M79.18 (PRIMARY) PROCEDURES PN TRIGGER POINT INJECTION WITH STEROIDS PRE PROCEDURE DIAGNOSIS 1. MYALGIA 2. PAIN AT BILATERAL NECK AREA, BILATERAL SHOULDER AREA, AND BILATERAL THORACIC AREA. POST PROCEDURE DIAGNOSIS 1. MYALGIA 2. PAIN AT BILATERAL NECK AREA, BILATERAL SHOULDER AREA, AND BILATERAL THORACIC AREA. PROCEDURE TRIGGER POINT INJECTION AT RIGHT AND LEFT NECK AREA, RIGHT AND LEFT SHOULDER AREA, AND RIGHT AND LEFT THORACIC AREA. SURGEON DR. DELTA GIBBS ELECTRIC ORGAN CHECKER NONE ANESTHESIA LOCAL PRE PROCEDURE NOTE THE PATIENT HAS A HISTORY OF CHRONIC PAIN AT THE RIGHT AND LEFT NECK AREA, RIGHT AND LEFT SHOULDER AREA, AND RIGHT AND LEFT THORACIC AREA. I EVALUATED THE PATIENT AND REVIEWED THE CHART. THERE IS EVIDENCE OF BANDS OF TISSUE WITH RESTRICTION OF MOVEMENT AND PRESENCE OF TRIGGER POINT AT THE AFFECTED AREA. I WENT OVER THE RISKS, ALTERNATIVES, AND BENEFITS ASSOCIATED WITH THIS PROCEDURE. THE PATIENT WOULD LIKE TO PROCEED AND GIVES CONSENT TO PERFORM THE PROCEDURE. THE PATIENT DENIES UNEXPLAINABLE WEIGHT LOSS, FEVER, CHILLS, OR NEW CHANGES IN URINARY OR BOWEL CONTROL DESCRIPTION OF PROCEDURE THE PATIENT WAS BROUGHT TO THE PROCEDURE ROOM AND PLACED IN THE SITTING POSITION. THE AREA WAS CLEANED WITH ALCOHOL. THE PROCEDURE WAS DONE USING ASEPTIC STERILE TECHNIQUE. I CHECKED LATERALITY AND THE LEVEL WHERE THE PROCEDURE WAS GOING TO BE PERFORMED WITH THE PATIENT AND THE SUPPORTING STAFF AT THE MOMENT OF THE TIME OUT IN THE PROCEDURE ROOM. USING A 25-GAUGE NEEDLE, TRIGGER POINTS WERE INJECTED AT THE RIGHT AND LEFT NECK AREA, RIGHT AND LEFT SHOULDER AREA, AND RIGHT AND LEFT THORACIC AREA WITH A TOTAL OF 40 ML OF BUPIVACAINE 0.25% AND KENALOG 40 MG. THERE WAS NO EVIDENCE OF BLOOD, PARESTHESIA OR CEREBROSPINAL FLUID DURING THE PROCEDURE. THE PATIENT WAS SENT TO THE RECOVERY ROOM. THE PATIENT WAS MOVING THE EXTREMITIES AND DOING WELL. THERE WAS NO COMPLICATION DURING THE PROCEDURE POST PROCEDURE NOTE THE PATIENT WILL BE SEEN IN A FOLLOW UP IN THE NEXT FEW WEEKS. I AM LOOKING FOR LONG LASTING PAIN RELIEF WITH THIS INTERVENTION FOR THE PATIENT. INSTRUCTIONS WERE GIVEN, QUESTIONS WERE ANSWERED, AND THE PATIENT EXPRESSED UNDERSTANDING AND AGREES WITH THE PLAN. I, DIONICIO AKBAR, DOCUMENTED THE ABOVE INFORMATION ACTING A SCRIBE FOR DR. GIBBS. I HAVE REVIEWED THE ABOVE DOCUMENT, WRITTEN BY DIONICIO AKBAR SCRIBE AND I VERIFY THAT IT IS ACCURATE. PROCEDURE CODES 28526 INJECT TRIGGER POINTS 3/> DISPOSITION & COMMUNICATION FOLLOW UP 3 WEEKS ELECTRONICALLY SIGNED BY DELTA GIBBS MD, MD ON 02/22/2019 AT 04:54 PM EST DISCLAIMER : THIS IS A VISIT SUMMARY EXTRACTED FROM THE [employer] CHART. IT IS NOT A COPY OF THE [employer] PROGRESS NOTE. ED
== END ==
LOC: M PAIN 11:00
PROVIDERS: ATTEND Anesthesiology
DX: M79.18 Myalgia, other site (principal); E03.9 Hypothyroidism, unspecified; F17.210 Nicotine dependence, cigarettes, uncomplicated; Z88.8 Allergy status to other drugs, medicaments and biological substances; Z91.040 Latex allergy status; Z91.09 Other allergy status, other than to drugs and biological substances; Z79.899 Other long term (current) drug therapy
CPT/HCPCS: 20553; J3301

== ENCOUNTER → 2019-03-03 | Outpatient (REF) | payer OTHER ==
[~2019-03-03] MED LIST changes: -BUPIVACAINE HCL 0.25% 10 ML VIAL As Ordered ONE; -BUPIVACAINE HCL 0.25% 30 ML VIAL As Ordered ONE; -TRIAMCINOLONE ACETONIDE SUSP 40 MG/ML VIAL (J3301) As Ordered ONE; -diazePAM 5 MG TAB As Ordered ONE; -oxyCODONE 5MG TAB As Ordered ONE
[2019-03-03 17:43] LABS: APPEARANCE, URINE CLEAR (CLEAR); BACTERIA, URINE AUTO NEGATIVE (NEGATIVE); BILIRUBIN, URINE AUTO NEGATIVE (NEGATIVE); BLOOD, URINE BLOOD NEGATIVE (NEGATIVE); COLOR, URINE YELLOW (YELLOW); GLUCOSE, URINE (UA) AUTO NEGATIVE (NEGATIVE); KETONE, URINE AUTO NEGATIVE (NEGATIVE); LEUKOCYTE ESTERASE, URINE AUTO NEGATIVE (NEGATIVE); MUCUS, URINE SMALL (NEGATIVE); NITRITE, URINE AUTO NEGATIVE (NEGATIVE); PROTEIN, URINE AUTO NEGATIVE (NEGATIVE); RBC, URINE AUTO 1 /HPF (0-3); SPECIFIC GRAVITY URINE AUTO 1.018 (1.002-1.035); SQUAMOUS EPITHELIAL CELL UR AU 2 /HPF (0-6); UROBILINOGEN, URINE AUTO 0.2 mg/dL (0.0-2.0); WBC, URINE AUTO 0 /HPF (0-3)
== END ==
LOC: M SMT 17:01
PROVIDERS: ATTEND Nurse Practitioner Family
DX: N39.3 Stress incontinence (female) (male) (principal)

== ENCOUNTER → 2019-03-14 | Outpatient (CLI) | payer OTHER ==
--- NOTE | 2019-03-18 02:17 | ECWPNPC ---
PATIENT NAME: JOSEPH AVILEZ : 1975 GENDER: FEMALE VISIT DATE: 03/14/2019 DISCHARGE DATE: 03/14/19 1053 VISIT LOCKED DATE TIME: PHYSICIAN: JOANA MORAN RESOURCE: JOANA MORAN REASON FOR APPOINTMENT 1. POST TPI HISTORY OF PRESENT ILLNESS HISTORY OF PRESENT ILLNESS: PAIN THE PATIENT DESCRIBES THE PAIN... 44-YEAR-OLD FEMALE IN FOR POST TPI FOLLOW-UP. SHE RATED HER PAIN PREPROCEDURE AT A 9 OUT OF 10 AND POSTPROCEDURE 0 OUT OF 10 AND SHE FURTHER STATES THIS LASTED FOR APPROXIMATELY ONE MONTH. SHE FEELS THE PROCEDURE OVERALL WAS VERY HELPFUL. SHE RATES HER PAIN CURRENTLY AT A 9 OUT OF 10 AND DESCRIBES IT ACHING, SHARP, BURNING, STABBING, SORE, SHOOTING, AND TENDER. SHE FURTHER STATES THE PAIN IS THROBBING. FALL RISK SCREENING: SCREENING :NO FALLS REPORTED IN THE LAST YEAR CURRENT MEDICATIONS TAKING REFRESH OPTIVE 0.5-0.9 % SOLUTION OPHTHALMIC TAKING CYMBALTA 60 MG CAPSULE DELAYED RELEASE PARTICLES 2 CAPSULES ORALLY ONCE A DAY TAKING CYMBALTA 30 MG CAPSULE DELAYED RELEASE PARTICLES 1 CAPSULE ORALLY ONCE A DAY TAKING QUETIAPINE FUMARATE 100 MG TABLET 2 TABLET ORALLY TAKES 800 MG IN PM TAKING QUETIAPINE FUMARATE 300 MG TABLET 2 TABLET AT BEDTIME ORALLY TAKES 800 MG IN PM ONCE A DAY TAKING PRAZOSIN HCL 2 MG CAPSULE 1 CAPSULE AT BEDTIME ORALLY ONCE A DAY TAKING VENTOLIN HFA 108 (90 BASE) MCG/ACT AEROSOL SOLUTION 2 PUFFS NEEDED INHALATION EVERY 4 HRS PRN TAKING KLONOPIN 0.5 MG TABLET 1 TABLET DAILY NEEDED ONCE A DAY TAKING PROPRANOLOL HCL 10 MG TABLET TAKE ONE TABLET BY MOUTH TWICE DAILY BOTTLE ORAL TAKING ROLLER WALKER - MISCELLANEOUS DIRECTED WITH WHEELS, SEAT AND BRAKE TAKING LEVOTHYROXINE SODIUM 25 MCG TABLET 1 TABLET ON AN EMPTY STOMACH IN THE MORNING ORALLY ONCE A DAY TAKING NYSTATIN [id number] UNIT/GM POWDER 1 NULL TO AFFECTED AREA EXTERNALLY TWICE A DAY TAKING TOPIRAMATE 100 MG TABLET 1 TABLET ORALLY EVERY NIGHT TIME TAKING CETIRIZINE HCL 10 MG TABLET 1 TABLET ORALLY ONCE A DAY MEDICATION LIST REVIEWED AND RECONCILED WITH THE PATIENT PAST MEDICAL HISTORY GRAND MAL SEIZURES RT SHOULDER STRAIN- NCOG TOBACCO USE EKG PROLONGED QT INTERVAL PREOP APPENDECTOMY OTHERWISE NML- CARDIO EVALUATED- SEE NOTE. ETT [facility] 04/30 NEG ISCHEMIA ECHO [facility]- 04/30- NML SYST AND DIASTOLIC FUNCTION 11/27 NSR, RARE ISOLATED PAC. EEG 09/15/14- NO EPILEPTIFORM ACTIVITY FIBROMYALGIA (TIGGOR POINT INJECTIONS WITH DR. 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 MORAN IN APRIL 2019) NEUROPATHOLOGIST: ORIANA RIVERA, ALLERGIES EFFEXOR: WILD MOOD CHANGES MELA TO BIPOLAR I - SIDE EFFECTS LATEX (FOR ALLERGY USE ONLY): RASH - ALLERGY METHOCARBAMOL: LOWERS SEIZURE THRESHOLD - SIDE EFFECTS ADHESIVE: HIVES - ALLERGY ENVIRONMENTAL (DOG, DANDER), TOMATOE: HIVES - ALLERGY CAT DANDER SURGICAL HISTORY OVARY ON CYST RUPTERED 1993 TUBAL LIGATION 2001 APPENDECTOMY 09/26/13 C-5, C-6, C-7 DISKECTOMY, OSTEOPHYTECTOMY 01/2015 FAMILY HISTORY FATHER: UNKNOWN 71 YRS, CAD, S/P CABG, PANCREATIC CA MOTHER: ALIVE 63 YRS, CEREBRAL ANEURYSM, THYROID DISEASE, DIAGNOSED WITH OTHER SPECIFIED CONDITIONS INFLUENCING HEALTH STATUS SIBLINGS: ALIVE, SISTER (1) - NOT MUCH INFORMATION BROTHER (1) - NARCISSISTIC PERSONALITY DISORDER HALF- SISTERS (1) - 1 WITH DEPRESSION, PTSD, ANXIETY, CERVICAL CA, SON(S): ALIVE, SONS (3) - 1 WITH RAD A CHILD 1 BROTHER(S) , 2 SISTER(S) - HEALTHY. 3 SON(S) - HEALTHY. MOM-HYPOTHYROIDISM, BRAIN ANEURYSM,PSYCHIATRIC ISSUESONE SISTER WITH EMBOLISM, NO KNOWN UROLOGICAL FAMILY HISTORY. SOCIAL HISTORY GENERAL: TOBACCO USE ARE YOU A:CURRENT SMOKER HOW MANY CIGARETTES A DAY DO YOU SMOKE?6-10 ARE YOU INTERESTED IN QUITTING?READY TO QUIT HAS THE GUM AT HOME PATIENT COUNSELED ON THE DANGERS OF TOBACCO USE AND URGED TO QUIT:03/11/2019 COUNSELED THE PATIENT ON TOBACCO USE, CESSATION [id number]/27/2019 SMOKING CESSATION INFORMATION GIVEN03/11/2019 PREVIOUS QUIT ATTEMPTS?YES, WITHIN THE LAST 6 MONTHS. HIV / HEP-C SCREENING HIV TEST OFFERED TO PATIENT:NO HEP-C TEST OFFERED TO PATIENT:NO OTHERS AT HOME: , NONE. EDUCATION LEVEL OF EDUCATION:HIGH SCHOOL DIET: REGULAR. LANGUAGE LANGUAGES SPOKEN:[place] DOMESTIC VIOLENCE DO YOU FEEL SAFE IN YOUR ENVIRONMENT?YES NEW PATIENT PAIN DIARY TODAY'S VISITNOTES FROM 0-10, WHAT LEVEL IS YOUR PAIN TODAY?9 BMI CARE GOAL FOLLOW-UP ABOVE NORMAL BMI FOLLOW-UPLIFESTYLE EDUCATION REGARDING DIET RECREATIONAL DRUG USE DRUG USE?YES HOW OFTEN AND HOW MUCH? SMOKES ONCE OR TWICE A WEEK FOR PAIN MANAGEMENT EXERCISE: NO REGULAR EXERCISE. LEARNING BARRIERS / SPECIAL NEEDS CHANGE FROM LAST VISIT?NO BARRIERS TO LEARNING?NO HEARING IMPAIRED?NO VISION IMPAIRED?YES COGNITIVELY IMPAIRED?NO NEUROPATHOLOGIST COMES WITH HER TO APPOINTMENTS :CORRECTIVE LENSES READINESS TO LEARN?YES LEARNING PREFERENCES?NO LEARNING CAPABILITIES PRESENT?YES EMOTIONAL BARRIERS?NO SPECIAL DEVICES?NO CUSTOMER SERVICE ASSOCIATE NEEDED?NO LUNG CANCER SCREENING SMOKING STATUS:CURRENT SMOKER PAIN CLINIC PFS, CLERGY, PUBLIC HEALTH REFERRALS PFS REFERRAL NEEDED?NO CLERGY REFERRAL NEEDED?NO PUBLIC HEALTH REFERRAL NEEDED?NO WAS THE PROVIDER NOTIFIED OF ANY PERTINENT INFO? N/A HAS THE PATIENT BEEN EDUCATED REGARDING HIS/HER PLAN OF CARE?YES HAS THE PATIENT BEEN EDUCATED REGARDING PAIN, THE RISK FOR PAIN, THE IMPORTANCE OF EFFECTIVE PAIN MANAGEMENT, AND THE PAIN ASSESSMENT PROCESS?YES LATEX QUESTIONNAIRE LATEX ALLERGY : HAVE YOU EVER DEVELOPED ANY TYPE OF REACTION AFTER HANDLING LATEX PRODUCTS SUCH RUBBER GLOVES, CONDOMS, DIAPHRAGMS, BALLOONS, SOCKS, OR UNDERWEAR?YES LATEX ALLERGY : HAVE YOU EVER DEVELOPED ANY TYPE OF REACTION DURING OR AFTER DENTAL APPOINTMENT, VAGINAL/RECTAL EXAMINATION, SURGICAL PROCEDURE, OR ANY OTHER EXPOSURE?YES DATE ASKED : 03/03/2019 LATEX RISK : HAVE YOU EVER HAD ANY DIFFICULTY BREATHING OR HIVES AFTER EATING OR HANDLING ANY FRUITS, OR VEGETABLES; SUCH KIWI, BANANAS, STONE FRUITS, OR CHESTNUTSYES LATEX RISK : DO YOU HAVE A PREVIOUS PERSONAL HISTORY OF MORE THAN NINE SURGERIES, SPINA BIFIDA, OR REPEATED CATHERIZATIONS? NO LATEX RISK : ARE YOU FREQUENTLY EXPOSED TO LATEX PRODUCTS IN YOUR OCCUPATION?NO CAFFEINE CAFFEINE USE?YES 1 CUP PER DAY ADVANCE DIRECTIVE ADVANCE DIRECTIVE DISCUSSED WITH PATIENT:YES NO HCP, HAS THE PAPER WORK, DECLINES ASSISTANCE WITH FORM TODAY 02/04/19 ANABAPTISM [id number] ISLAM MARITAL STATUS: SINGLE. ALCOHOL SCREENING DID YOU HAVE A DRINK CONTAINING ALCOHOL IN THE PAST YEAR?NO POINTS0 INTERPRETATIONNEGATIVE OCCUPATION: DISABLED. SEXUAL HX HAD SEX IN THE LAST 12 MONTHS (VAGINAL, ORAL, OR ANAL)?YES WITHMEN ONLY HAVE YOU EVER HAD AN STD?YES GC?YES CHLAMYDIA?YES REVIEWED 06/18/17 1410 BV07/06 1515 REVIEWED AD10/12 1220 REVIEWED WITH PT. SHE WILL BRING HCP IN.01/10/19 REVIEWED WITH PATIENT LAS02/04/19 1105 REVIEWED WITH PATIENT BV. HOSPITALIZATION/MAJOR DIAGNOSTIC PROCEDURE [facility] 04/26/17-05/01/17 NECK SURGERY REVIEW OF SYSTEMS REVIEWED BY: PROVIDER: FABIAN RODRIGUEZ-Leena . CONSTITUTIONAL: ANY CHANGE IN YOUR MEDICAL CONDITION? NO . CHILLS NO . FEVER NO . INFECTION: DO YOU HAVE NEW INFECTIONS? NO . DO YOU HAVE HISTORY OF MRSA? NO . MUSCULOSKELETAL: ANY NEW PATTERNS OF PAIN OR NUMBNESS? YES, LEFT ARM NUMBNESS SINCE 2018 . GASTROENTEROLOGY: ANY NEW CHANGE IN BOWEL CONTROL? NO . GENITOURINARY: ANY NEW CHANGE IN BLADDER CONTROL? YES, PT C/O URGENCY, SHE IS SEEING UROLOGIST FOR THIS . IS THERE A CHANCE YOU COULD BE ? NO . HEMATOLOGY/LYMPH: DO YOU TAKE ANY BLOOD THINNERS? (FOR EXAMPLE- COUMADIN, PLAVIX, AGGRENOX, PLATEL, PRADAXA, OR XARELTO) NO . WHEN WAS YOUR LAST DOSE? DATE: TIME: . NEUROLOGY: HAVE YOU FALLEN IN THE PAST 12 MONTHS? YES, PT FELL 2 DAYS AGO FROM NUMBNESS AND WEAKNESS PT C/O BILAT KNEE PAIN PT DENIES SEEKING MEDICAL TX FOR KNEE PAIN . ANY NEW EXTREMITY NUMBNESS OR WEAKNESS? YES, BILAT KNEE NUMBNESS . CARDIOLOGY: DO YOU HAVE A PACEMAKER OR DEFIBRILLATOR? NO . RESPIRATORY: HAVE YOU BEEN SICK IN THE PAST WEEK? NO . FEVER NO . FLU LIKE SYMPTOMS? NO . COUGH NO . INTEGUMENTARY: DO YOU HAVE ANY RASHES OR OPEN SORES? NO . ALLERGIC/IMMUNO: ARE YOU ALLERGIC TO IV DYE? NO . ANY NEW ALLERGIES? NO . PSYCHIATRIC: DO YOU HAVE THOUGHTS OF HURTING YOURSELF OR SOMEONE ELSE? NO . ARE YOU ABUSED, NEGLECTED, OR IN AN UNSAFE ENVIRONMENT? NO . ENDOCRINOLOGY: ARE YOU DIABETIC? NO . OTHER: DO YOU NEED ANY PRESCRIPTIONS? NO . IF YES, PLEASE LIST: ____ . ANY NEW PROBLEMS WITH YOUR MEDICATIONS? NO . WHEN DID YOU LAST EAT? ____ . WHEN DID YOU LAST DRINK? ____ . WHAT DID YOU LAST DRINK? ____ . NAME OF PERSON DRIVING YOU HOME? ____ . DO YOU HAVE ANY OTHER QUESTIONS OR CONCERNS RECEIVED FLU VACCINE 03/11/19 . VITAL SIGNS WT 225.8 LBS, HT 65 IN, BMI 37.57 INDEX, BP 124/72 MM HG, HR 104 /MIN, RR 20 /MIN, TEMP 96.5 F, OXYGEN SAT % 95%, NA INITIALS SC 10:03, REVIEWED BY: JUD. EXAMINATION GENERAL EXAMINATION: GENERALNO ACUTE DISTRESS, WELL NOURISHED AND HYDRATED. PSYCHAPPROPRIATE MOOD AND AFFECT . NECK:POINT TENDER BILATERAL NECK AND SHOULDERS, SURROUNDING SKIN SHOWS NO ERYTHEMA, ECCHYMOSIS, INCREASED WARMTH, AND/OR SKIN ERUPTIONS NOTED. . LUNGS:CLEAR TO AUSCULTATION BILATERALLY, NO WHEEZES, RHONCHI, RALES. HEART:NO MURMURS, REGULAR RATE AND RHYTHM. BACK:POINT TENDER BILATERAL THORACIC AREA, SURROUNDING SKIN SHOWS NO ERYTHEMA, ECCHYMOSIS, INCREASED WARMTH, AND/OR SKIN ERUPTIONS NOTED. . ASSESSMENTS MYALGIA, OTHER SITE - M79.18 (PRIMARY) TREATMENT MYALGIA, OTHER SITE NOTES: BILATERAL NECK, SHOULDER, AND THORACIC TPI. CLINICAL NOTES: 44-YEAR-OLD FEMALE IN FOR POST TPI FOLLOW-UP. GIVEN PRESENTING SYMPTOMS AND RESULTS OF PHYSICAL EXAMINATION RECOMMENDED REPEAT BILATERAL NECK, SHOULDER, AND THORACIC TPI WITH POST PROCEDURAL FOLLOW-UP. PATIENT HAS EXPRESSED UNDERSTANDING OF AND WAS IN AGREEMENT WITH TREATMENT PLAN. GIVEN TIME TO ASK QUESTIONS AND EXPRESS CONCERNS. PREVENTIVE MEDICINE PAIN CLINIC TEACHING: PROCEDURE TEACHING PRE TRIGGER POINT INJECTION INSTRUCTIONS PROVIDED TO PT. VERBALIZED UNDERSTANDING.. PROCEDURE CODES FA211 ESTABILISHED PATIENT [facility] CHARGE DISPOSITION & COMMUNICATION FOLLOW UP POSTPROCEDURE (REASON: BILATERAL NECK, SHOULDER, AND THORACIC TPI) ELECTRONICALLY SIGNED BY JENNIFER WALDRON ON 03/17/2019 AT 08:28 AM EST DISCLAIMER : THIS IS A VISIT SUMMARY EXTRACTED FROM THE [employer] CHART. IT IS NOT A COPY OF THE [employer] PROGRESS NOTE. ED
== END ==
LOC: M PAIN 10:00
PROVIDERS: ATTEND Family Medicine
DX: M79.18 Myalgia, other site (principal)

== ENCOUNTER → 2019-03-30 | Outpatient (CLI) | payer OTHER ==
[~2019-03-30] MED LIST changes: +BUPIVACAINE HCL 0.25% 10 ML VIAL As Ordered ONE; +BUPIVACAINE HCL 0.25% 30 ML VIAL As Ordered ONE; +TRIAMCINOLONE ACETONIDE SUSP 40 MG/ML VIAL (J3301) As Ordered ONE; +ZONI100C17 PO; -ZONI100C2 PO; +diazePAM 5 MG TAB As Ordered ONE; +oxyCODONE 5MG TAB As Ordered ONE
--- NOTE | 2019-04-12 03:33 | ECWPNPC ---
PATIENT NAME: JOSEPH AVILEZ : 1975 GENDER: FEMALE VISIT DATE: 03/30/2019 DISCHARGE DATE: 03/30/19 1637 VISIT LOCKED DATE TIME: PHYSICIAN: DELTA GIBBS MD RESOURCE: DELTA GIBBS MD REASON FOR APPOINTMENT 1. LEFT SHOULDER AND BILATERAL LUMBAR TPI HISTORY OF PRESENT ILLNESS HISTORY OF PRESENT ILLNESS: PAIN THE PATIENT DESCRIBES THE PAIN... FALL RISK SCREENING: SCREENING :NO FALLS REPORTED IN THE LAST YEAR CURRENT MEDICATIONS TAKING REFRESH OPTIVE 0.5-0.9 % SOLUTION OPHTHALMIC , NOTES: 03/29/19 TAKING CYMBALTA 60 MG CAPSULE DELAYED RELEASE PARTICLES 2 CAPSULES ORALLY ONCE A DAY, NOTES: 03/29/19 TAKING CYMBALTA 30 MG CAPSULE DELAYED RELEASE PARTICLES 1 CAPSULE ORALLY ONCE A DAY, NOTES: 03/29/19 TAKING QUETIAPINE FUMARATE 100 MG TABLET 2 TABLET ORALLY TAKES 800 MG IN PM, NOTES: 03/29/19 TAKING QUETIAPINE FUMARATE 300 MG TABLET 2 TABLET AT BEDTIME ORALLY TAKES 800 MG IN PM ONCE A DAY, NOTES: 03/29/19 TAKING PRAZOSIN HCL 2 MG CAPSULE 1 CAPSULE AT BEDTIME ORALLY ONCE A DAY, NOTES: 03/29/19 TAKING VENTOLIN HFA 108 (90 BASE) MCG/ACT AEROSOL SOLUTION 2 PUFFS NEEDED INHALATION EVERY 4 HRS PRN, NOTES: 03/30/19 PM TAKING KLONOPIN 0.5 MG TABLET 1 TABLET DAILY NEEDED ONCE A DAY, NOTES: NONE LATELY TAKING PROPRANOLOL HCL 10 MG TABLET TAKE ONE TABLET BY MOUTH TWICE DAILY BOTTLE ORAL , NOTES: 03/29/19 TAKING ROLLER WALKER - MISCELLANEOUS DIRECTED WITH WHEELS, SEAT AND BRAKE TAKING NYSTATIN [id number] UNIT/GM POWDER 1 NULL TO AFFECTED AREA EXTERNALLY TWICE A DAY, NOTES: 03/29/19 TAKING CETIRIZINE HCL 10 MG TABLET 1 TABLET ORALLY ONCE A DAY, NOTES: 03/29/19 TAKING LEVOTHYROXINE SODIUM 25 MCG TABLET 1 TABLET ON AN EMPTY STOMACH IN THE MORNING ORALLY ONCE A DAY, NOTES: 03/29/19 TAKING TOPIRAMATE 100 MG TABLET 1 TABLET ORALLY EVERY NIGHT TIME, NOTES: 03/29/19 MEDICATION LIST REVIEWED AND RECONCILED WITH THE PATIENT PAST MEDICAL HISTORY GRAND MAL SEIZURES RT SHOULDER STRAIN- NCOG TOBACCO USE EKG PROLONGED QT INTERVAL PREOP APPENDECTOMY OTHERWISE NML- CARDIO EVALUATED- SEE NOTE. [facility] [place] 04/30 NEG ISCHEMIA ECHO [facility]- 04/30- NML SYST AND DIASTOLIC FUNCTION 11/27 NSR, RARE ISOLATED PAC. EEG 09/15/14- NO EPILEPTIFORM ACTIVITY FIBROMYALGIA (TIGGOR POINT INJECTIONS WITH DR. 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 MORAN IN APRIL 2019) MANAGER OF MERCHANDISING: ORIANA RIVERA, ALLERGIES EFFEXOR: WILD MOOD CHANGES MELA TO BIPOLAR I - SIDE EFFECTS LATEX (FOR ALLERGY USE ONLY): RASH - ALLERGY METHOCARBAMOL: LOWERS SEIZURE THRESHOLD - SIDE EFFECTS ADHESIVE: HIVES - ALLERGY ENVIRONMENTAL (DOG, DANDER), TOMATOE: HIVES - ALLERGY CAT DANDER SURGICAL HISTORY OVARY ON CYST RUPTERED 1993 TUBAL LIGATION 2001 APPENDECTOMY 09/26/13 C-5, C-6, C-7 DISKECTOMY, OSTEOPHYTECTOMY 01/2015 FAMILY HISTORY FATHER: UNKNOWN 71 YRS, CAD, S/P CABG, PANCREATIC CA MOTHER: ALIVE 64 YRS, CEREBRAL ANEURYSM, THYROID DISEASE, DIAGNOSED WITH OTHER SPECIFIED CONDITIONS INFLUENCING HEALTH STATUS SIBLINGS: ALIVE, SISTER (1) - NOT MUCH INFORMATION BROTHER (1) - NARCISSISTIC PERSONALITY DISORDER HALF- SISTERS (1) - 1 WITH DEPRESSION, PTSD, ANXIETY, CERVICAL CA, SON(S): ALIVE, SONS (3) - 1 WITH RAD A CHILD 1 BROTHER(S) , 2 SISTER(S) - HEALTHY. 3 SON(S) - HEALTHY. MOM-HYPOTHYROIDISM, BRAIN ANEURYSM,PSYCHIATRIC ISSUESONE SISTER WITH EMBOLISM, NO KNOWN UROLOGICAL FAMILY HISTORY. SOCIAL HISTORY GENERAL: TOBACCO USE ARE YOU A:CURRENT SMOKER ARE YOU INTERESTED IN QUITTING?NOT READY TO QUIT COUNSELED THE PATIENT ON SMOKING EFFECTS, EDUCATION [id number]/15/2020 HOW MANY CIGARETTES A DAY DO YOU SMOKE?6-10 PATIENT COUNSELED ON THE DANGERS OF TOBACCO USE AND URGED TO QUIT:03/11/2019 SMOKING CESSATION INFORMATION GIVEN03/11/2019 HIV / HEP-C SCREENING HIV TEST OFFERED TO PATIENT:NO HEP-C TEST OFFERED TO PATIENT:NO OTHERS AT HOME: , NONE. EDUCATION LEVEL OF EDUCATION:HIGH SCHOOL DIET: REGULAR. LANGUAGE LANGUAGES SPOKEN:[place] DOMESTIC VIOLENCE DO YOU FEEL SAFE IN YOUR ENVIRONMENT?YES NEW PATIENT PAIN DIARY TODAY'S VISITNOTES FROM 0-10, WHAT LEVEL IS YOUR PAIN TODAY?9 BMI CARE GOAL FOLLOW-UP ABOVE NORMAL BMI FOLLOW-UPLIFESTYLE EDUCATION REGARDING DIET RECREATIONAL DRUG USE DRUG USE?YES HOW OFTEN AND HOW MUCH? SMOKES ONCE OR TWICE A WEEK FOR PAIN MANAGEMENT EXERCISE: NO REGULAR EXERCISE. LEARNING BARRIERS / SPECIAL NEEDS CHANGE FROM LAST VISIT?NO BARRIERS TO LEARNING?NO HEARING IMPAIRED?NO VISION IMPAIRED?YES COGNITIVELY IMPAIRED?NO MANAGER OF MERCHANDISING COMES WITH HER TO APPOINTMENTS :CORRECTIVE LENSES READINESS TO LEARN?YES LEARNING PREFERENCES?NO LEARNING CAPABILITIES PRESENT?YES EMOTIONAL BARRIERS?NO SPECIAL DEVICES?NO STORY TELLER NEEDED?NO LUNG CANCER SCREENING SMOKING STATUS:CURRENT SMOKER PAIN CLINIC PFS, CLERGY, PUBLIC HEALTH REFERRALS PFS REFERRAL NEEDED?NO CLERGY REFERRAL NEEDED?NO PUBLIC HEALTH REFERRAL NEEDED?NO WAS THE PROVIDER NOTIFIED OF ANY PERTINENT INFO? N/A HAS THE PATIENT BEEN EDUCATED REGARDING HIS/HER PLAN OF CARE?YES HAS THE PATIENT BEEN EDUCATED REGARDING PAIN, THE RISK FOR PAIN, THE IMPORTANCE OF EFFECTIVE PAIN MANAGEMENT, AND THE PAIN ASSESSMENT PROCESS?YES LATEX QUESTIONNAIRE LATEX ALLERGY : HAVE YOU EVER DEVELOPED ANY TYPE OF REACTION AFTER HANDLING LATEX PRODUCTS SUCH RUBBER GLOVES, CONDOMS, DIAPHRAGMS, BALLOONS, SOCKS, OR UNDERWEAR?YES LATEX ALLERGY : HAVE YOU EVER DEVELOPED ANY TYPE OF REACTION DURING OR AFTER DENTAL APPOINTMENT, VAGINAL/RECTAL EXAMINATION, SURGICAL PROCEDURE, OR ANY OTHER EXPOSURE?YES DATE ASKED : 03/03/2019 LATEX RISK : HAVE YOU EVER HAD ANY DIFFICULTY BREATHING OR HIVES AFTER EATING OR HANDLING ANY FRUITS, OR VEGETABLES; SUCH KIWI, BANANAS, STONE FRUITS, OR CHESTNUTSYES LATEX RISK : DO YOU HAVE A PREVIOUS PERSONAL HISTORY OF MORE THAN NINE SURGERIES, SPINA BIFIDA, OR REPEATED CATHERIZATIONS? NO LATEX RISK : ARE YOU FREQUENTLY EXPOSED TO LATEX PRODUCTS IN YOUR OCCUPATION?NO CAFFEINE CAFFEINE USE?YES 1 CUP PER DAY ADVANCE DIRECTIVE ADVANCE DIRECTIVE DISCUSSED WITH PATIENT:YES NO HCP, HAS THE PAPER WORK, DECLINES ASSISTANCE WITH FORM TODAY CHEONDOISM [id number] HINDU MARITAL STATUS: SINGLE. ALCOHOL SCREENING DID YOU HAVE A DRINK CONTAINING ALCOHOL IN THE PAST YEAR?NO POINTS0 INTERPRETATIONNEGATIVE OCCUPATION: DISABLED. SEXUAL HX HAD SEX IN THE LAST 12 MONTHS (VAGINAL, ORAL, OR ANAL)?YES WITHMEN ONLY HAVE YOU EVER HAD AN STD?YES GC?YES CHLAMYDIA?YES REVIEWED 06/18/17 1410 BV07/06 1515 REVIEWED AD7/30 1220 REVIEWED WITH PT. SHE WILL BRING HCP IN.01/10/19 REVIEWED WITH PATIENT LAS02/04/19 1105 REVIEWED WITH PATIENT BV. HOSPITALIZATION/MAJOR DIAGNOSTIC PROCEDURE [facility] 04/26/17-05/01/17 NECK SURGERY REVIEW OF SYSTEMS REVIEWED BY: PROVIDER: . CONSTITUTIONAL: ANY CHANGE IN YOUR MEDICAL CONDITION? NO . CHILLS NO . FEVER NO . INFECTION: DO YOU HAVE NEW INFECTIONS? NO . DO YOU HAVE HISTORY OF MRSA? NO . MUSCULOSKELETAL: ANY NEW PATTERNS OF PAIN OR NUMBNESS? YES, LEFT NECK PAIN AND NUMBNESS RADIATING DOWN TO FINGERS . GASTROENTEROLOGY: ANY NEW CHANGE IN BOWEL CONTROL? NO . GENITOURINARY: ANY NEW CHANGE IN BLADDER CONTROL? NO . IS THERE A CHANCE YOU COULD BE ? NO . HEMATOLOGY/LYMPH: DO YOU TAKE ANY BLOOD THINNERS? (FOR EXAMPLE- COUMADIN, PLAVIX, AGGRENOX, PLATEL, PRADAXA, OR XARELTO) NO . WHEN WAS YOUR LAST DOSE? DATE: TIME: . NEUROLOGY: HAVE YOU FALLEN IN THE PAST 12 MONTHS? YES, FELL 03/19/19 FELL DOWN THE STAIRS FROM LEG WEAKNESS . ANY NEW EXTREMITY NUMBNESS OR WEAKNESS? YES, LEFT ARM . CARDIOLOGY: DO YOU HAVE A PACEMAKER OR DEFIBRILLATOR? NO . RESPIRATORY: HAVE YOU BEEN SICK IN THE PAST WEEK? NO . FEVER NO . FLU LIKE SYMPTOMS? NO . COUGH NO . INTEGUMENTARY: DO YOU HAVE ANY RASHES OR OPEN SORES? NO . ALLERGIC/IMMUNO: ARE YOU ALLERGIC TO IV DYE? NO . ANY NEW ALLERGIES? NO . PSYCHIATRIC: DO YOU HAVE THOUGHTS OF HURTING YOURSELF OR SOMEONE ELSE? NO . ARE YOU ABUSED, NEGLECTED, OR IN AN UNSAFE ENVIRONMENT? NO . ENDOCRINOLOGY: ARE YOU DIABETIC? NO . OTHER: DO YOU NEED ANY PRESCRIPTIONS? NO . IF YES, PLEASE LIST: ____ . ANY NEW PROBLEMS WITH YOUR MEDICATIONS? NO . WHEN DID YOU LAST EAT? 03/29/19 2300 . WHEN DID YOU LAST DRINK? 03/30/19 1400 . WHAT DID YOU LAST DRINK? WATER . NAME OF PERSON DRIVING YOU HOME? CAB . DO YOU HAVE ANY OTHER QUESTIONS OR CONCERNS FLU VACCINE RECEIVED 3-3 1/2 WEEKS AGO, ALSO TO DISCUSS DCS . VITAL SIGNS WT 230.8 LBS, HT 65 IN, BMI 38.40 INDEX, BP 104/74 MM HG, HR 91 /MIN, RR 20 /MIN, TEMP 97.7 F, OXYGEN SAT % 97%, NA INITIALS SC 15:04, REVIEWED BY: EM. ELDRIDGE MYALGIA, OTHER SITE - M79.18 (PRIMARY) PROCEDURES PN TRIGGER POINT INJECTION WITH STEROIDS PRE PROCEDURE DIAGNOSIS 1. MYALGIA 2. PAIN AT LEFT SHOULDER AREA AND RIGHT AND LEFT LOW BACK AREA POST PROCEDURE DIAGNOSIS 1. MYALGIA 2. PAIN AT LEFT SHOULDER AND RIGHT AND LEFT LOW BACK AREA PROCEDURE TRIGGER POINT INJECTION AT LEFT SHOULDER AREA AND RIGHT AND LEFT LOW BACK AREA SURGEON DR. DELTA GIBBS [employer] TEACHER NONE ANESTHESIA LOCAL PRE PROCEDURE NOTE THE PATIENT HAS A HISTORY OF CHRONIC PAIN AT THE LEFT SHOULDER AREA AND RIGHT AND LEFT LOW BACK AREA. I EVALUATED THE PATIENT AND REVIEWED THE CHART. THERE IS EVIDENCE OF BANDS OF TISSUE WITH RESTRICTION OF MOVEMENT AND PRESENCE OF TRIGGER POINT AT THE AFFECTED AREA. I WENT OVER THE RISKS, ALTERNATIVES, AND BENEFITS ASSOCIATED WITH THIS PROCEDURE. THE PATIENT WOULD LIKE TO PROCEED AND GIVE CONSENT TO PERFORMED THE PROCEDURE. THE PATIENT DENIES UNEXPLAINABLE WEIGHT LOSS, FEVER, CHILLS, OR NEW CHANGES IN URINARY OR BOWEL CONTROL DESCRIPTION OF PROCEDURE THE PATIENT WAS BROUGHT TO THE PROCEDURE ROOM AND PLACED IN THE SITTING POSITION. THE AREA WAS CLEANED WITH ALCOHOL. THE PROCEDURE WAS DONE USING ASEPTIC STERILE TECHNIQUE. I CHECKED LATERALITY AND THE LEVEL WHERE THE PROCEDURE WAS GOING TO BE PERFORMED WITH THE PATIENT AND THE SUPPORTING STAFF AT THE MOMENT OF THE TIME OUT IN THE PROCEDURE ROOM. USING A 25-GAUGE NEEDLE, TRIGGER POINTS WERE INJECTED AT THE LEFT SHOULDER AREA AND RIGHT AND LEFT LOW BACK AREA WITH A TOTAL OF 40 ML OF BUPIVACAINE 0.25% AND KENALOG 40 MG. THERE WAS NO EVIDENCE OF BLOOD, PARESTHESIA OR CEREBROSPINAL FLUID DURING THE PROCEDURE. THE PATIENT WAS SENT TO THE RECOVERY ROOM. THE PATIENT WAS MOVING THE EXTREMITIES AND DOING WELL. THERE WAS NO COMPLICATION DURING THE PROCEDURE POST PROCEDURE NOTE THE PATIENT WILL BE SEEN IN A FOLLOWUP IN THE NEXT FEW WEEKS. I AM LOOKING FOR LONG-LASTING PAIN RELIEF WITH THIS INTERVENTION. INSTRUCTIONS WERE GIVEN, QUESTIONS WERE ANSWERED, AND THE PATIENT EXPRESSED UNDERSTANDING AND AGREES WITH THE PLAN. I, TALIB HILLIARD, DOCUMENTED THE ABOVE INFORMATION ACTING A SCRIBE FOR DR. GIBBS. I HAVE REVIEWED THE ABOVE DOCUMENT, WRITTEN BY ROMA AMBROSE, AND I VERIFY THAT IT IS ACCURATE PROCEDURE CODES 85364 INJECT TRIGGER POINTS, =/> 3 DISPOSITION & COMMUNICATION FOLLOW UP 3 WEEKS ELECTRONICALLY SIGNED BY DELTA GIBBS MD, MD ON 04/11/2019 AT 01:19 PM EST DISCLAIMER : THIS IS A VISIT SUMMARY EXTRACTED FROM THE [employer] CHART. IT IS NOT A COPY OF THE [employer] PROGRESS NOTE. ED
== END ==
LOC: M PAIN 14:45
PROVIDERS: ATTEND Anesthesiology
DX: M79.18 Myalgia, other site (principal)
CPT/HCPCS: 20553; J3301

== ENCOUNTER → 2019-04-13 | Outpatient (CLI) | payer OTHER ==
[~2019-04-13] MED LIST changes: -BUPIVACAINE HCL 0.25% 10 ML VIAL As Ordered ONE; -BUPIVACAINE HCL 0.25% 30 ML VIAL As Ordered ONE; -TRIAMCINOLONE ACETONIDE SUSP 40 MG/ML VIAL (J3301) As Ordered ONE; -diazePAM 5 MG TAB As Ordered ONE; -oxyCODONE 5MG TAB As Ordered ONE
--- NOTE | 2019-04-15 02:23 | ECWPNPC ---
PATIENT NAME: JOSEPH AVILEZ : 1975 GENDER: FEMALE VISIT DATE: 04/13/2019 DISCHARGE DATE: 04/13/19 1025 VISIT LOCKED DATE TIME: PHYSICIAN: JOANA MORAN RESOURCE: JOANA MORAN REASON FOR APPOINTMENT 1. POST TPI HISTORY OF PRESENT ILLNESS HISTORY OF PRESENT ILLNESS: PAIN THE PATIENT DESCRIBES THE PAIN... 44-YEAR-OLD FEMALE IN FOR POST TPI FOLLOW-UP. SHE RATES HER PAIN PREPROCEDURE AT A 9 OUT OF 10 AND POSTPROCEDURE AT A 0-2 OUT OF 10X2 WEEKS. SHE RATES HER PAIN CURRENTLY AT A 6 OUT OF 10 AND DESCRIBES IT ACHING, BURNING, SORE, TENDER, SHARP, STABBING, SHOOTING, TINGLING, AND THROBBING. FALL RISK SCREENING: SCREENING :NO FALLS REPORTED IN THE LAST YEAR CURRENT MEDICATIONS TAKING REFRESH OPTIVE 0.5-0.9 % SOLUTION OPHTHALMIC TAKING CYMBALTA 60 MG CAPSULE DELAYED RELEASE PARTICLES 2 CAPSULES ORALLY ONCE A DAY TAKING CYMBALTA 30 MG CAPSULE DELAYED RELEASE PARTICLES 1 CAPSULE ORALLY ONCE A DAY TAKING QUETIAPINE FUMARATE 100 MG TABLET 2 TABLET ORALLY TAKES 800 MG IN PM TAKING QUETIAPINE FUMARATE 300 MG TABLET 2 TABLET AT BEDTIME ORALLY TAKES 800 MG IN PM ONCE A DAY TAKING PRAZOSIN HCL 2 MG CAPSULE 1 CAPSULE AT BEDTIME ORALLY ONCE A DAY TAKING VENTOLIN HFA 108 (90 BASE) MCG/ACT AEROSOL SOLUTION 2 PUFFS NEEDED INHALATION EVERY 4 HRS PRN TAKING KLONOPIN 0.5 MG TABLET 1 TABLET DAILY NEEDED ONCE A DAY TAKING PROPRANOLOL HCL 10 MG TABLET TAKE ONE TABLET BY MOUTH TWICE DAILY BOTTLE ORAL TAKING ROLLER WALKER - MISCELLANEOUS DIRECTED WITH WHEELS, SEAT AND BRAKE TAKING NYSTATIN [id number] UNIT/GM POWDER 1 NULL TO AFFECTED AREA EXTERNALLY TWICE A DAY TAKING CETIRIZINE HCL 10 MG TABLET 1 TABLET ORALLY ONCE A DAY TAKING LEVOTHYROXINE SODIUM 25 MCG TABLET 1 TABLET ON AN EMPTY STOMACH IN THE MORNING ORALLY ONCE A DAY TAKING TOPIRAMATE 100 MG TABLET 1 TABLET ORALLY EVERY NIGHT TIME TAKING OXYBUTYNIN CHLORIDE 5 MG TABLET 1 TABLET ORALLY ONCE A DAY MEDICATION LIST REVIEWED AND RECONCILED WITH THE PATIENT PAST MEDICAL HISTORY GRAND MAL SEIZURES RT SHOULDER STRAIN- NCOG TOBACCO USE EKG PROLONGED QT INTERVAL PREOP APPENDECTOMY OTHERWISE NML- CARDIO EVALUATED- SEE NOTE. ETT [facility] 04/30 NEG ISCHEMIA ECHO [place]- 04/30- NML SYST AND DIASTOLIC FUNCTION 11/27 NSR, RARE ISOLATED PAC. EEG 09/15/14- NO EPILEPTIFORM ACTIVITY FIBROMYALGIA (TIGGOR POINT INJECTIONS WITH DR. 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 MORAN IN APRIL 2019) SPRUE KNOCKER: ORIANA RIVERA, ALLERGIES EFFEXOR: WILD MOOD CHANGES MELA TO BIPOLAR I - SIDE EFFECTS LATEX (FOR ALLERGY USE ONLY): RASH - ALLERGY METHOCARBAMOL: LOWERS SEIZURE THRESHOLD - SIDE EFFECTS ADHESIVE: HIVES - ALLERGY ENVIRONMENTAL (DOG, DANDER), TOMATOE: HIVES - ALLERGY CAT DANDER SURGICAL HISTORY OVARY ON CYST RUPTERED 1993 TUBAL LIGATION 2001 APPENDECTOMY 09/26/13 C-5, C-6, C-7 DISKECTOMY, OSTEOPHYTECTOMY 01/2015 FAMILY HISTORY FATHER: UNKNOWN 71 YRS, CAD, S/P CABG, PANCREATIC CA MOTHER: ALIVE 64 YRS, CEREBRAL ANEURYSM, THYROID DISEASE, DIAGNOSED WITH OTHER SPECIFIED CONDITIONS INFLUENCING HEALTH STATUS SIBLINGS: ALIVE, SISTER (1) - NOT MUCH INFORMATION BROTHER (1) - NARCISSISTIC PERSONALITY DISORDER HALF- SISTERS (1) - 1 WITH DEPRESSION, PTSD, ANXIETY, CERVICAL CA, SON(S): ALIVE, SONS (3) - 1 WITH RAD A CHILD 1 BROTHER(S) , 2 SISTER(S) - HEALTHY. 3 SON(S) - HEALTHY. MOM-HYPOTHYROIDISM, BRAIN ANEURYSM,PSYCHIATRIC ISSUESONE SISTER WITH EMBOLISM, NO KNOWN UROLOGICAL FAMILY HISTORY. SOCIAL HISTORY GENERAL: TOBACCO USE ARE YOU A:CURRENT SMOKER ARE YOU INTERESTED IN QUITTING?NOT READY TO QUIT COUNSELED THE PATIENT ON SMOKING EFFECTS, EDUCATION EDIGHPJP52/15/2020 HOW MANY CIGARETTES A DAY DO YOU SMOKE?6-10 PATIENT COUNSELED ON THE DANGERS OF TOBACCO USE AND URGED TO QUIT:04/13/2019 SMOKING CESSATION INFORMATION GIVEN03/11/2019 HIV / HEP-C SCREENING HIV TEST OFFERED TO PATIENT:NO HEP-C TEST OFFERED TO PATIENT:NO OTHERS AT HOME: , NONE. EDUCATION LEVEL OF EDUCATION:HIGH SCHOOL DIET: REGULAR. LANGUAGE LANGUAGES SPOKEN:GEORGIAN DOMESTIC VIOLENCE DO YOU FEEL SAFE IN YOUR ENVIRONMENT?YES NEW PATIENT PAIN DIARY TODAY'S VISITNOTES FROM 0-10, WHAT LEVEL IS YOUR PAIN TODAY?9 BMI CARE GOAL FOLLOW-UP ABOVE NORMAL BMI FOLLOW-UPLIFESTYLE EDUCATION REGARDING DIET RECREATIONAL DRUG USE DRUG USE?YES HOW OFTEN AND HOW MUCH? SMOKES ONCE OR TWICE A WEEK FOR PAIN MANAGEMENT EXERCISE: NO REGULAR EXERCISE. LEARNING BARRIERS / SPECIAL NEEDS CHANGE FROM LAST VISIT?NO BARRIERS TO LEARNING?NO HEARING IMPAIRED?NO VISION IMPAIRED?YES COGNITIVELY IMPAIRED?NO SPRUE KNOCKER COMES WITH HER TO APPOINTMENTS :CORRECTIVE LENSES READINESS TO LEARN?YES LEARNING PREFERENCES?NO LEARNING CAPABILITIES PRESENT?YES EMOTIONAL BARRIERS?NO SPECIAL DEVICES?NO LINER REROLL TENDER NEEDED?NO LUNG CANCER SCREENING SMOKING STATUS:CURRENT SMOKER PAIN CLINIC PFS, CLERGY, PUBLIC HEALTH REFERRALS PFS REFERRAL NEEDED?NO CLERGY REFERRAL NEEDED?NO PUBLIC HEALTH REFERRAL NEEDED?NO WAS THE PROVIDER NOTIFIED OF ANY PERTINENT INFO?YES N/A HAS THE PATIENT BEEN EDUCATED REGARDING HIS/HER PLAN OF CARE?YES HAS THE PATIENT BEEN EDUCATED REGARDING PAIN, THE RISK FOR PAIN, THE IMPORTANCE OF EFFECTIVE PAIN MANAGEMENT, AND THE PAIN ASSESSMENT PROCESS?YES LATEX QUESTIONNAIRE LATEX ALLERGY : HAVE YOU EVER DEVELOPED ANY TYPE OF REACTION AFTER HANDLING LATEX PRODUCTS SUCH RUBBER GLOVES, CONDOMS, DIAPHRAGMS, BALLOONS, SOCKS, OR UNDERWEAR?YES LATEX ALLERGY : HAVE YOU EVER DEVELOPED ANY TYPE OF REACTION DURING OR AFTER DENTAL APPOINTMENT, VAGINAL/RECTAL EXAMINATION, SURGICAL PROCEDURE, OR ANY OTHER EXPOSURE?YES LATEX RISK : HAVE YOU EVER HAD ANY DIFFICULTY BREATHING OR HIVES AFTER EATING OR HANDLING ANY FRUITS, OR VEGETABLES; SUCH KIWI, BANANAS, STONE FRUITS, OR CHESTNUTSYES LATEX RISK : DO YOU HAVE A PREVIOUS PERSONAL HISTORY OF MORE THAN NINE SURGERIES, SPINA BIFIDA, OR REPEATED CATHERIZATIONS? NO LATEX RISK : ARE YOU FREQUENTLY EXPOSED TO LATEX PRODUCTS IN YOUR OCCUPATION?NO DATE ASKED : 04/13/2019 CAFFEINE CAFFEINE USE?YES 1 CUP PER DAY ADVANCE DIRECTIVE ADVANCE DIRECTIVE DISCUSSED WITH PATIENT:YES NO HCP, HAS THE PAPER WORK, DECLINES ASSISTANCE WITH FORM CHRISTIAN [id number] HINDU MARITAL STATUS: SINGLE. ALCOHOL SCREENING DID YOU HAVE A DRINK CONTAINING ALCOHOL IN THE PAST YEAR?NO POINTS0 INTERPRETATIONNEGATIVE OCCUPATION: DISABLED. SEXUAL HX HAD SEX IN THE LAST 12 MONTHS (VAGINAL, ORAL, OR ANAL)?YES WITHMEN ONLY HAVE YOU EVER HAD AN STD?YES GC?YES CHLAMYDIA?YES REVIEWED 06/18/17 1410 BV07/06 1515 REVIEWED AD7/30 1220 REVIEWED WITH PT. SHE WILL BRING HCP IN.01/10/19 REVIEWED WITH PATIENT LAS02/04/19 1105 REVIEWED WITH PATIENT BV04/13/2019 REVIEWED WITH PATIENT DS. HOSPITALIZATION/MAJOR DIAGNOSTIC PROCEDURE [facility] 04/26/17-05/01/17 NECK SURGERY REVIEW OF SYSTEMS REVIEWED BY: PROVIDER: FABIAN COX . CONSTITUTIONAL: ANY CHANGE IN YOUR MEDICAL CONDITION? NO . CHILLS NO . FEVER NO . INFECTION: DO YOU HAVE NEW INFECTIONS? NO . DO YOU HAVE HISTORY OF MRSA? NO . MUSCULOSKELETAL: ANY NEW PATTERNS OF PAIN OR NUMBNESS? NO . GASTROENTEROLOGY: ANY NEW CHANGE IN BOWEL CONTROL? NO . GENITOURINARY: ANY NEW CHANGE IN BLADDER CONTROL? NO . IS THERE A CHANCE YOU COULD BE ? NO . HEMATOLOGY/LYMPH: DO YOU TAKE ANY BLOOD THINNERS? (FOR EXAMPLE- COUMADIN, PLAVIX, AGGRENOX, PLATEL, PRADAXA, OR XARELTO) NO . WHEN WAS YOUR LAST DOSE? DATE: TIME: . NEUROLOGY: HAVE YOU FALLEN IN THE PAST 12 MONTHS? YES, PT STATES THAT SHE WAS HOME, BRUISING, NO REPORT TO ED, NO SIGNIFICANT INJURY. . ANY NEW EXTREMITY NUMBNESS OR WEAKNESS? NO . CARDIOLOGY: DO YOU HAVE A PACEMAKER OR DEFIBRILLATOR? NO . RESPIRATORY: HAVE YOU BEEN SICK IN THE PAST WEEK? NO . FEVER NO . FLU LIKE SYMPTOMS? NO . COUGH NO . INTEGUMENTARY: DO YOU HAVE ANY RASHES OR OPEN SORES? NO . ALLERGIC/IMMUNO: ARE YOU ALLERGIC TO IV DYE? NO . ANY NEW ALLERGIES? NO . PSYCHIATRIC: DO YOU HAVE THOUGHTS OF HURTING YOURSELF OR SOMEONE ELSE? NO . ARE YOU ABUSED, NEGLECTED, OR IN AN UNSAFE ENVIRONMENT? NO . ENDOCRINOLOGY: ARE YOU DIABETIC? NO . OTHER: DO YOU NEED ANY PRESCRIPTIONS? CAN I RECEIVE MUSCLE RELAXERS FOR BAD DAYS? . IF YES, PLEASE LIST: ____ . ANY NEW PROBLEMS WITH YOUR MEDICATIONS? NO . WHEN DID YOU LAST EAT? ____ . WHEN DID YOU LAST DRINK? ____ . WHAT DID YOU LAST DRINK? ____ . NAME OF PERSON DRIVING YOU HOME? ____ . DO YOU HAVE ANY OTHER QUESTIONS OR CONCERNS DORSAL COLUMN STIMULATOR FOR LOW BACK, DISCUSSED WITH MD GIBBS . VITAL SIGNS WT 226.4 LBS, HT 65 IN, BMI 37.67 INDEX, BP 113/74 MM HG, HR 79 /MIN, RR 18 /MIN, TEMP 97.4 F, OXYGEN SAT % 96, SAFE IN ENV? (Y/N) Y, REVIEWED BY: NAA. EXAMINATION GENERAL EXAMINATION: GENERALNO ACUTE DISTRESS, WELL NOURISHED AND HYDRATED. PSYCHAPPROPRIATE MOOD AND AFFECT . LUNGS:CLEAR TO AUSCULTATION BILATERALLY, NO WHEEZES, RHONCHI, RALES. HEART:NO MURMURS, REGULAR RATE AND RHYTHM. ASSESSMENTS MYALGIA, OTHER SITE - M79.18 (PRIMARY) ENCOUNTER FOR FITTING AND ADJUSTMENT OF OTHER DEVICES RELATED TO NERVOUS SYSTEM AND SPECIAL SENSES - Z46.2 TREATMENT MYALGIA, OTHER SITE START TIZANIDINE HCL TABLET, 4 MG, 1 TABLET NEEDED, ORALLY, THREE TIMES A DAY, 30 DAYS, 90 TABLET CLINICAL NOTES: 44-YEAR-OLD FEMALE IN FOR POST TPI FOLLOW-UP. GIVEN PRESENTING SYMPTOMS AND RESULTS OF PHYSICAL EXAMINATION RECOMMENDED STARTING TIZANIDINE 4MG 3 TIMES A DAY WITH FOLLOW-UP IN 2 MONTHS TO DETERMINE EFFICACY OF TREATMENT. DISCUSSED DCS TRIAL WITH PATIENT WILL ORDER THORACIC AND LUMBAR MRIS, AND GIVE PATIENT EDUCATION ON DCS. PATIENT HAS EXPRESSED UNDERSTANDING OF AND WAS IN AGREEMENT WITH TREATMENT PLAN. GIVEN TIME TO ASK QUESTIONS AND EXPRESS CONCERNS. ENCOUNTER FOR FITTING AND ADJUSTMENT OF OTHER DEVICES RELATED TO NERVOUS SYSTEM AND SPECIAL SENSES [facility] MRI SPINE,THORACIC WITHOUT [id number] [facility] MRI LUMBAR W/O CONTRAST (CPT 79029)[id number] PREVENTIVE MEDICINE PAIN CLINIC TEACHING: THE PATIENT HAS BEEN EDUCATED REGARDING PAIN, THE RISK FOR PAIN, THE IMPORTANCE OF EFFECTIVE PAIN MANAGEMENT, AND THE PAIN ASSESSMENT PROCESS. : REVIEWED AND DISCUSSED TREATMENT PLAN WITH PATIENT, DISCUSSED WRITTEN MATERIAL ON NEW MEDICATION, TIZANIDINE, REVIEWED WRITTEN MATERIAL ON DORSAL COLUMN STIMULATOR. PT ACKNOWLEDGED UNDERSTANING ON ALL MATERIAL. NAA PROCEDURE CODES FA211 ESTABILISHED PATIENT [facility] FACILITY CHARGE DISPOSITION & COMMUNICATION FOLLOW UP POST DIAGNOSTIC IMAGING (REASON: THORACIC AND LUMBAR MRI DCS TRIAL ) ELECTRONICALLY SIGNED BY JENNIFER WALDRON ON 04/14/2019 AT 08:26 AM EST DISCLAIMER : THIS IS A VISIT SUMMARY EXTRACTED FROM THE [employer] CHART. IT IS NOT A COPY OF THE [employer] PROGRESS NOTE. ED
== END ==
LOC: M PAIN 09:45
PROVIDERS: ATTEND Family Medicine
DX: M79.18 Myalgia, other site (principal); Z46.2 Encounter for fitting and adjustment of other devices related to nervous system and special senses; F17.210 Nicotine dependence, cigarettes, uncomplicated; Z88.8 Allergy status to other drugs, medicaments and biological substances; Z91.040 Latex allergy status; Z91.09 Other allergy status, other than to drugs and biological substances; Z79.899 Other long term (current) drug therapy

== ENCOUNTER → 2019-06-14 | Outpatient (CLI) | payer OTHER ==
[~2019-06-14] MED LIST changes: +QUET100T2 PO; -QUET1TAB8 PO
--- NOTE | 2019-06-16 01:35 | ECWPNPC ---
PATIENT NAME: JOSEPH AVILEZ : 1975 GENDER: FEMALE VISIT DATE: 06/14/2019 DISCHARGE DATE: 06/14/19 0947 VISIT LOCKED DATE TIME: PHYSICIAN: JOANA MORAN RESOURCE: JOANA MORAN REASON FOR APPOINTMENT 1. NEW PAIN HISTORY OF PRESENT ILLNESS HISTORY OF PRESENT ILLNESS: PAIN THE PATIENT DESCRIBES THE PAIN... 44-YEAR-OLD FEMALE IN FOR CHRONIC PAIN FOLLOW-UP. SHE RATES HER PAIN CURRENTLY 8-9/10 AND DESCRIBES IT STABBING AND SHOOTING. SHE ADMITS TO A HX OF LEFT ARM PAIN AND WEAKNESS S/P HER NECK SURGERY HOWEVER SHE FEELS HER SYMPTOMS ARE PROGRESSING. SHE ADMITS TO DROPPING THINGS AND TO HER FINGERS CURLING UP AT TIMES. FALL RISK SCREENING: SCREENING :NO FALLS REPORTED IN THE LAST YEAR CURRENT MEDICATIONS TAKING REFRESH OPTIVE 0.5-0.9 % SOLUTION OPHTHALMIC TAKING CYMBALTA 60 MG CAPSULE DELAYED RELEASE PARTICLES 2 CAPSULES ORALLY ONCE A DAY TAKING CYMBALTA 30 MG CAPSULE DELAYED RELEASE PARTICLES 1 CAPSULE ORALLY ONCE A DAY TAKING QUETIAPINE FUMARATE 100 MG TABLET 2 TABLET ORALLY TAKES 800 MG IN PM TAKING QUETIAPINE FUMARATE 300 MG TABLET 2 TABLET AT BEDTIME ORALLY TAKES 800 MG IN PM ONCE A DAY TAKING PRAZOSIN HCL 2 MG CAPSULE 1 CAPSULE AT BEDTIME ORALLY ONCE A DAY TAKING KLONOPIN 0.5 MG TABLET 2 TABLET DAILY NEEDED ONCE A DAY TAKING PROPRANOLOL HCL 10 MG TABLET TAKE ONE TABLET BY MOUTH TWICE DAILY BOTTLE ORAL TAKING ROLLER WALKER - MISCELLANEOUS DIRECTED WITH WHEELS, SEAT AND BRAKE TAKING NYSTATIN [id number] UNIT/GM POWDER 1 NULL TO AFFECTED AREA EXTERNALLY TWICE A DAY TAKING CETIRIZINE HCL 10 MG TABLET 1 TABLET ORALLY ONCE A DAY TAKING OXYBUTYNIN CHLORIDE 5 MG TABLET 1 TABLET ORALLY ONCE A DAY TAKING TOPIRAMATE 100 MG TABLET 1 TABLET EVERY NIGHT TIME ORALLY 28 TAKING LEVOTHYROXINE SODIUM 25 MCG TABLET 1 TABLET ON AN EMPTY STOMACH IN THE MORNING ONCE A DAY ORALLY 28 TAKING VENTOLIN HFA 108 (90 BASE) MCG/ACT AEROSOL SOLUTION 2 PUFFS NEEDED INHALATION EVERY 4 HRS PRN MEDICATION LIST REVIEWED AND RECONCILED WITH THE PATIENT PAST MEDICAL HISTORY GRAND MAL SEIZURES RT SHOULDER STRAIN- NCOG TOBACCO USE EKG PROLONGED QT INTERVAL PREOP APPENDECTOMY OTHERWISE NML- CARDIO EVALUATED- SEE NOTE. ETT 04/30 NEG ISCHEMIA ECHO [facility]- 04/30- NML SYST AND DIASTOLIC FUNCTION HM 11/27 NSR, RARE ISOLATED PAC. EEG 09/15/14- NO EPILEPTIFORM ACTIVITY FIBROMYALGIA (TIGGOR POINT INJECTIONS WITH DR. 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 OPERATOR: ORIANA RIVERA, ALLERGIES EFFEXOR: WILD MOOD CHANGES MELA TO BIPOLAR I - SIDE EFFECTS LATEX (FOR ALLERGY USE ONLY): RASH - ALLERGY METHOCARBAMOL: LOWERS SEIZURE THRESHOLD - SIDE EFFECTS ADHESIVE: HIVES - ALLERGY ENVIRONMENTAL (DOG, DANDER), TOMATOE: HIVES - ALLERGY CAT DANDER SURGICAL HISTORY OVARY ON CYST RUPTERED 1993 TUBAL LIGATION 2001 APPENDECTOMY 09/26/13 C-5, C-6, C-7 DISKECTOMY, OSTEOPHYTECTOMY 01/2015 FAMILY HISTORY FATHER: UNKNOWN 71 YRS, CAD, S/P CABG, PANCREATIC CA MOTHER: ALIVE 64 YRS, CEREBRAL ANEURYSM, THYROID DISEASE, DIAGNOSED WITH OTHER SPECIFIED CONDITIONS INFLUENCING HEALTH STATUS SIBLINGS: ALIVE, SISTER (1) - NOT MUCH INFORMATION BROTHER (1) - NARCISSISTIC PERSONALITY DISORDER HALF- SISTERS (1) - 1 WITH DEPRESSION, PTSD, ANXIETY, CERVICAL CA, SON(S): ALIVE, SONS (3) - 1 WITH RAD A CHILD 1 BROTHER(S) , 2 SISTER(S) - HEALTHY. 3 SON(S) - HEALTHY. MOM-HYPOTHYROIDISM, BRAIN ANEURYSM,PSYCHIATRIC ISSUESONE SISTER WITH EMBOLISM, NO KNOWN UROLOGICAL FAMILY HISTORY. SOCIAL HISTORY GENERAL: TOBACCO USE ARE YOU A:CURRENT SMOKER ARE YOU INTERESTED IN QUITTING?NOT READY TO QUIT COUNSELED THE PATIENT ON SMOKING EFFECTS, EDUCATION GCUTOTIE81/31/2020 HOW MANY CIGARETTES A DAY DO YOU SMOKE?6-10 PATIENT COUNSELED ON THE DANGERS OF TOBACCO USE AND URGED TO QUIT:06/14/2019 SMOKING CESSATION INFORMATION GIVEN06/14/2019 HIV / HEP-C SCREENING HIV TEST OFFERED TO PATIENT:NO HEP-C TEST OFFERED TO PATIENT:NO OTHERS AT HOME: , NONE. EDUCATION LEVEL OF EDUCATION:HIGH SCHOOL DIET: REGULAR. LANGUAGE LANGUAGES SPOKEN:CZECH DOMESTIC VIOLENCE DO YOU FEEL SAFE IN YOUR ENVIRONMENT?YES NEW PATIENT PAIN DIARY TODAY'S VISITNOTES PATIENT DESCRIBES PAIN :ACHING, HAVE IT ALL THE TIME, STABBING, SHOOTING FROM 0-10, WHAT LEVEL IS YOUR PAIN TODAY?9 PRECIPITATING FACTORS ACTIVITY ALLEVIATING FACTORS NOTHING IMPACT ON FUNCTION YES BMI CARE GOAL FOLLOW-UP ABOVE NORMAL BMI FOLLOW-UPLIFESTYLE EDUCATION REGARDING DIET RECREATIONAL DRUG USE DRUG USE?YES HOW OFTEN AND HOW MUCH? SMOKES ONCE OR TWICE A WEEK FOR PAIN MANAGEMENT EXERCISE: NO REGULAR EXERCISE. LEARNING BARRIERS / SPECIAL NEEDS CHANGE FROM LAST VISIT?NO BARRIERS TO LEARNING?NO HEARING IMPAIRED?NO VISION IMPAIRED?YES COGNITIVELY IMPAIRED?NO PROFILING MACHINE OPERATOR COMES WITH HER TO APPOINTMENTS :CORRECTIVE LENSES READINESS TO LEARN?YES LEARNING PREFERENCES?NO LEARNING CAPABILITIES PRESENT?YES EMOTIONAL BARRIERS?NO SPECIAL DEVICES?NO BREAKFAST HOST NEEDED?NO LUNG CANCER SCREENING SMOKING STATUS:CURRENT SMOKER PAIN CLINIC PFS, CLERGY, PUBLIC HEALTH REFERRALS PFS REFERRAL NEEDED?NO CLERGY REFERRAL NEEDED?NO PUBLIC HEALTH REFERRAL NEEDED?NO WAS THE PROVIDER NOTIFIED OF ANY PERTINENT INFO?YES N/A HAS THE PATIENT BEEN EDUCATED REGARDING HIS/HER PLAN OF CARE?YES HAS THE PATIENT BEEN EDUCATED REGARDING PAIN, THE RISK FOR PAIN, THE IMPORTANCE OF EFFECTIVE PAIN MANAGEMENT, AND THE PAIN ASSESSMENT PROCESS?YES LATEX QUESTIONNAIRE LATEX ALLERGY : HAVE YOU EVER DEVELOPED ANY TYPE OF REACTION AFTER HANDLING LATEX PRODUCTS SUCH RUBBER GLOVES, CONDOMS, DIAPHRAGMS, BALLOONS, SOCKS, OR UNDERWEAR?YES LATEX ALLERGY : HAVE YOU EVER DEVELOPED ANY TYPE OF REACTION DURING OR AFTER DENTAL APPOINTMENT, VAGINAL/RECTAL EXAMINATION, SURGICAL PROCEDURE, OR ANY OTHER EXPOSURE?YES DATE ASKED : 04/13/2019 LATEX RISK : HAVE YOU EVER HAD ANY DIFFICULTY BREATHING OR HIVES AFTER EATING OR HANDLING ANY FRUITS, OR VEGETABLES; SUCH KIWI, BANANAS, STONE FRUITS, OR CHESTNUTSYES LATEX RISK : DO YOU HAVE A PREVIOUS PERSONAL HISTORY OF MORE THAN NINE SURGERIES, SPINA BIFIDA, OR REPEATED CATHERIZATIONS? NO LATEX RISK : ARE YOU FREQUENTLY EXPOSED TO LATEX PRODUCTS IN YOUR OCCUPATION?NO CAFFEINE CAFFEINE USE?YES 1 CUP PER DAY ADVANCE DIRECTIVE ADVANCE DIRECTIVE DISCUSSED WITH PATIENT:YES NO HCP, HAS THE PAPER WORK, DECLINES ASSISTANCE WITH FORM TEMPLE [id number] ANABAPTIST MARITAL STATUS: SINGLE. ALCOHOL SCREENING DID YOU HAVE A DRINK CONTAINING ALCOHOL IN THE PAST YEAR?NO POINTS0 INTERPRETATIONNEGATIVE OCCUPATION: DISABLED. SEXUAL HX HAD SEX IN THE LAST 12 MONTHS (VAGINAL, ORAL, OR ANAL)?YES WITHMEN ONLY HAVE YOU EVER HAD AN STD?YES GC?YES CHLAMYDIA?YES 04/13/2019 REVIEWED WITH PATIENT DS. HOSPITALIZATION/MAJOR DIAGNOSTIC PROCEDURE [facility] 04/26/17-05/01/17 NECK SURGERY REVIEW OF SYSTEMS REVIEWED BY: PROVIDER: FABIAN COX . CONSTITUTIONAL: ANY CHANGE IN YOUR MEDICAL CONDITION? NO . CHILLS NO . FEVER NO . INFECTION: DO YOU HAVE NEW INFECTIONS? NO . DO YOU HAVE HISTORY OF MRSA? NO . MUSCULOSKELETAL: ANY NEW PATTERNS OF PAIN OR NUMBNESS? PAIN IN LEFT SHOULDER IS WORSE . GASTROENTEROLOGY: ANY NEW CHANGE IN BOWEL CONTROL? NO . GENITOURINARY: ANY NEW CHANGE IN BLADDER CONTROL? YES, STRESS INCONTINENCE, SEEING UROLOGIST FOR THIS . IS THERE A CHANCE YOU COULD BE ? NO . HEMATOLOGY/LYMPH: DO YOU TAKE ANY BLOOD THINNERS? (FOR EXAMPLE- COUMADIN, PLAVIX, AGGRENOX, PLATEL, PRADAXA, OR XARELTO) NO . WHEN WAS YOUR LAST DOSE? DATE: TIME: . NEUROLOGY: HAVE YOU FALLEN IN THE PAST 12 MONTHS? YES, FALLS ALL THE TIME FROM LOSS OF BALANCE AND WEAKNESS . ANY NEW EXTREMITY NUMBNESS OR WEAKNESS? NO . CARDIOLOGY: DO YOU HAVE A PACEMAKER OR DEFIBRILLATOR? NO . RESPIRATORY: HAVE YOU BEEN SICK IN THE PAST WEEK? NO . FEVER NO . FLU LIKE SYMPTOMS? NO . COUGH NO . INTEGUMENTARY: DO YOU HAVE ANY RASHES OR OPEN SORES? NO . ALLERGIC/IMMUNO: ARE YOU ALLERGIC TO IV DYE? NO . ANY NEW ALLERGIES? NO . PSYCHIATRIC: DO YOU HAVE THOUGHTS OF HURTING YOURSELF OR SOMEONE ELSE? NO . ARE YOU ABUSED, NEGLECTED, OR IN AN UNSAFE ENVIRONMENT? NO . ENDOCRINOLOGY: ARE YOU DIABETIC? NO . OTHER: DO YOU NEED ANY PRESCRIPTIONS? NO . IF YES, PLEASE LIST: ____ . ANY NEW PROBLEMS WITH YOUR MEDICATIONS? NO . WHEN DID YOU LAST EAT? ____ . WHEN DID YOU LAST DRINK? ____ . WHAT DID YOU LAST DRINK? ____ . NAME OF PERSON DRIVING YOU HOME? ____ . DO YOU HAVE ANY OTHER QUESTIONS OR CONCERNS NO . VITAL SIGNS WT 235 LBS, HT 65 IN, BMI 39.10 INDEX, BP 118/66 MM HG, HR 79 /MIN, RR 18 /MIN, TEMP 97.1 F, OXYGEN SAT % 97%, SAFE IN ENV? (Y/N) Y, NA INITIALS AW 0853, REVIEWED BY: JUD. EXAMINATION GENERAL EXAMINATION: GENERALNO ACUTE DISTRESS, WELL NOURISHED AND HYDRATED. PSYCHAPPROPRIATE MOOD AND AFFECT . NECK:POINT TENDER ALONG CERVICAL SPINE, SURROUNDING SKIN SHOWS NO ERYTHEMA, ECCHYMOSIS, INCREASED WARMTH, AND/OR SKIN ERUPTIONS NOTED. . LUNGS:CLEAR TO AUSCULTATION BILATERALLY, NO WHEEZES, RHONCHI, RALES. HEART:NO MURMURS, REGULAR RATE AND RHYTHM. MUSCULOSKELETAL:PATIENT ENDORSES LIGHT-TOUCH SENSITIVITY LATERAL ASPECT OF THE LEFT UPPER EXTREMITY PROXIMAL TO THE ELBOW. ASSESSMENTS CERVICALGIA - M54.2 (PRIMARY) TREATMENT CERVICALGIA CLINICAL NOTES: 44-YEAR-OLD FEMALE WITH WORSENING CERVICALGIA WITH RADICULAR SYMPTOMS DOWN THE LEFT ARM. GIVEN PRESENTING SYMPTOMS AND RESULTS OF PHYSICAL EXAMINATION RECOMMENDED REFERRAL TO NEUROLOGY FOR FURTHER EVALUATION. PATIENT HAS EXPRESSED UNDERSTANDING OF AND WAS IN AGREEMENT WITH TREATMENT PLAN. GIVEN TIME TO ASK QUESTIONS AND EXPRESS CONCERNS. REFERRAL TO:NEUROLOGY [facility] REASON:EVALUATE WEAKNESS,NUMBNESS,AND LIGHT TOUCH SENSITIVITY LEFT ARM PROCEDURE CODES FA211 ESTABILISHED PATIENT [facility] CHARGE DISPOSITION & COMMUNICATION FOLLOW UP AFTER REFERRAL (REASON: NEUROLOGY REFERRAL) ELECTRONICALLY SIGNED BY JENNIFER WALDRON ON 06/15/2019 AT 09:05 AM EDT DISCLAIMER : THIS IS A VISIT SUMMARY EXTRACTED FROM THE [employer] CHART. IT IS NOT A COPY OF THE [employer] PROGRESS NOTE. ED
== END ==
LOC: M PAIN 09:00
PROVIDERS: ATTEND Family Medicine
DX: M54.2 Cervicalgia (principal); F17.210 Nicotine dependence, cigarettes, uncomplicated; J30.2 Other seasonal allergic rhinitis; E03.9 Hypothyroidism, unspecified; M79.7 Fibromyalgia; N39.3 Stress incontinence (female) (male); Z79.899 Other long term (current) drug therapy; Z91.040 Latex allergy status; Z88.8 Allergy status to other drugs, medicaments and biological substances; J30.81 Allergic rhinitis due to animal (cat) (dog) hair and dander

== ENCOUNTER → 2019-07-01 | Outpatient (CLI) | payer OTHER ==
--- NOTE | 2019-07-02 06:36 | REP ---
MRI THORACIC SPINE: TECHNIQUE: Multiple sequences obtained in the sagittal and axial planes. Vertebral bodies are normal in height and are well aligned. There is normal thoracic kyphosis. Incidental note is made of fusion hardware in the lower cervical spine. There is no compression fracture or malalignment with normal thoracic kyphosis. Small focus of increased signal on both T1 and T2 weighted images are noted in the T1, T7 and T11 vertebral bodies consistent with hemangiomas. There is diffuse loss of water signal and disc degeneration at virtually all levels. There is slight disc space narrowing at T7-8. No abnormal signal is seen in the thoracic cord. I see no significant disc bulging or herniation at any level. There is no spinal stenosis or foraminal narrowing, IMPRESSION: Mild diffuse degenerative disc changes as discussed above. No disc bulging or herniation. No spinal stenosis or neural foraminal narrowing. Electronically Signed by Obinna Daniel MD 07/04/2019 10:50 A
--- NOTE | 2019-07-02 06:42 | REP ---
MRI LUMBAR SPINE: Multiple sequences obtained in the sagittal and axial planes. COMPARISON: Comparison made with prior study of 09/06/2016. FINDINGS: Vertebral bodies are normal in height and are well aligned with normal lumbar lordosis. There is no compression deformity. There is normal lumbar lordosis. There is either an old avulsion fracture or unfused ossification center at the anterior superior margin of the L3, unchanged. There is diffuse loss of water signal with disc degeneration. There is mild disc space narrowing at L2-3. The conus is unremarkable. At L1-2, there is no significant disc bulging or herniation. There is no spinal stenosis or foraminal narrowing. At L2-3, there is slight diffuse disc bulging with slight effacement of the anterior thecal sac. There is no spinal stenosis or neural foraminal narrowing. At L3-4, there is not significant disc bulging or herniation. There is no spinal stenosis or foraminal narrowing. At L4-5, there is slight diffuse disc bulging. There are mild hypertrophic changes at the posterior facet joints. There is no spinal stenosis or foraminal narrowing. At L5-S1, there is mild diffuse disc bulging and mild hypertrophic change at the posterior facets. There is no spinal stenosis or neural foraminal narrowing. IMPRESSION: Very mild diffuse disc bulging L2-3, L4-5 and L5-S1. Mild hypertrophic change at the posterior facet joints of L4-5 and L5-S1. No spinal stenosis or foraminal narrowing. Electronically Signed by Obinna Daniel MD 07/04/2019 10:50 A
== END ==
LOC: M RAD 13:05
PROVIDERS: ATTEND Family Medicine
DX: Z46.2 Encounter for fitting and adjustment of other devices related to nervous system and special senses (principal)

== ENCOUNTER → 2019-07-14 | Outpatient (CLI) | payer OTHER ==
--- NOTE | 2019-07-16 01:22 | ECWPNPC ---
PATIENT NAME: JOSEPH AVILEZ : 1975 GENDER: FEMALE VISIT DATE: 07/14/2019 DISCHARGE DATE: 07/14/19 1102 VISIT LOCKED DATE TIME: PHYSICIAN: JOANA MORAN RESOURCE: JOANA MORAN REASON FOR APPOINTMENT 1. REVIEW MRI [phone] - LEFT MESSAGE AT 0915 HISTORY OF PRESENT ILLNESS HISTORY OF PRESENT ILLNESS: PAIN THE PATIENT DESCRIBES THE PAIN... PERMISSION REQUESTED AND RECEIVED FROM PATIENT TO PERFORM TELEPHONE VISIT. 44-YEAR-OLD FEMALE IN FOR CHRONIC PAIN FOLLOW-UP. SHE RATES HER PAIN CURRENTLY AT A 7 OUT OF 10 AND DESCRIBES IT ACHING, STABBING, AND SHOOTING. PATIENT HAD RECENT MRIS WHICH WILL BE REVIEWED WITH PATIENT TODAY. FALL RISK SCREENING: SCREENING :NO FALLS REPORTED IN THE LAST YEAR CURRENT MEDICATIONS TAKING REFRESH OPTIVE 0.5-0.9 % SOLUTION OPHTHALMIC TAKING CYMBALTA 60 MG CAPSULE DELAYED RELEASE PARTICLES 2 CAPSULES ORALLY ONCE A DAY TAKING CYMBALTA 30 MG CAPSULE DELAYED RELEASE PARTICLES 1 CAPSULE ORALLY ONCE A DAY TAKING QUETIAPINE FUMARATE 100 MG TABLET 2 TABLET ORALLY TAKES 800 MG IN PM TAKING QUETIAPINE FUMARATE 300 MG TABLET 2 TABLET AT BEDTIME ORALLY TAKES 800 MG IN PM ONCE A DAY TAKING PRAZOSIN HCL 2 MG CAPSULE 1 CAPSULE AT BEDTIME ORALLY ONCE A DAY TAKING KLONOPIN 0.5 MG TABLET 2 TABLET DAILY NEEDED ONCE A DAY TAKING PROPRANOLOL HCL 10 MG TABLET TAKE ONE TABLET BY MOUTH TWICE DAILY BOTTLE ORAL TAKING ROLLER WALKER - MISCELLANEOUS DIRECTED WITH WHEELS, SEAT AND BRAKE TAKING NYSTATIN [id number] UNIT/GM POWDER 1 NULL TO AFFECTED AREA EXTERNALLY TWICE A DAY TAKING CETIRIZINE HCL 10 MG TABLET 1 TABLET ORALLY ONCE A DAY TAKING OXYBUTYNIN CHLORIDE 5 MG TABLET 1 TABLET ORALLY ONCE A DAY TAKING VENTOLIN HFA 108 (90 BASE) MCG/ACT AEROSOL SOLUTION 2 PUFFS NEEDED INHALATION EVERY 4 HRS PRN TAKING LEVOTHYROXINE SODIUM 25 MCG TABLET 1 TABLET ON AN EMPTY STOMACH IN THE MORNING ONCE A DAY ORALLY 28 TAKING TOPIRAMATE 100 MG TABLET 1 TABLET EVERY NIGHT TIME ORALLY 28 MEDICATION LIST REVIEWED AND RECONCILED WITH THE PATIENT PAST MEDICAL HISTORY GRAND MAL SEIZURES RT SHOULDER STRAIN- NCOG TOBACCO USE EKG PROLONGED QT INTERVAL PREOP APPENDECTOMY OTHERWISE NML- CARDIO EVALUATED- SEE NOTE. ETT 04/30 NEG ISCHEMIA ECHO 04/30- NML SYST AND DIASTOLIC FUNCTION HM 11/27 NSR, RARE ISOLATED PAC. EEG 09/15/14- NO EPILEPTIFORM ACTIVITY FIBROMYALGIA (TIGGOR POINT INJECTIONS WITH DR. 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 MORAN IN APRIL 2019) BUILDING PRINCIPAL: ORIANA RIVERA, ALLERGIES EFFEXOR: WILD MOOD CHANGES MELA TO BIPOLAR I - SIDE EFFECTS LATEX (FOR ALLERGY USE ONLY): RASH - ALLERGY METHOCARBAMOL: LOWERS SEIZURE THRESHOLD - SIDE EFFECTS ADHESIVE: HIVES - ALLERGY ENVIRONMENTAL (DOG, DANDER), TOMATOE: HIVES - ALLERGY CAT DANDER SURGICAL HISTORY OVARY ON CYST RUPTERED 1993 TUBAL LIGATION 2001 APPENDECTOMY 09/26/13 C-5, C-6, C-7 DISKECTOMY, OSTEOPHYTECTOMY 01/2015 FAMILY HISTORY FATHER: UNKNOWN 71 YRS, CAD, S/P CABG, PANCREATIC CA MOTHER: ALIVE 64 YRS, CEREBRAL ANEURYSM, THYROID DISEASE, DIAGNOSED WITH OTHER SPECIFIED CONDITIONS INFLUENCING HEALTH STATUS SIBLINGS: ALIVE, SISTER (1) - NOT MUCH INFORMATION BROTHER (1) - NARCISSISTIC PERSONALITY DISORDER HALF- SISTERS (1) - 1 WITH DEPRESSION, PTSD, ANXIETY, CERVICAL CA, SON(S): ALIVE, SONS (3) - 1 WITH RAD A CHILD 1 BROTHER(S) , 2 SISTER(S) - HEALTHY. 3 SON(S) - HEALTHY. MOM-HYPOTHYROIDISM, BRAIN ANEURYSM,PSYCHIATRIC ISSUESONE SISTER WITH EMBOLISM, NO KNOWN UROLOGICAL FAMILY HISTORY. SOCIAL HISTORY GENERAL: TOBACCO USE ARE YOU A:CURRENT SMOKER ARE YOU INTERESTED IN QUITTING?NOT READY TO QUIT COUNSELED THE PATIENT ON SMOKING EFFECTS, EDUCATION [id number]/30/2020 HOW MANY CIGARETTES A DAY DO YOU SMOKE?6-10 PATIENT COUNSELED ON THE DANGERS OF TOBACCO USE AND URGED TO QUIT:06/14/2019 SMOKING CESSATION INFORMATION GIVEN06/14/2019 LATEX QUESTIONNAIRE LATEX ALLERGY : HAVE YOU EVER DEVELOPED ANY TYPE OF REACTION AFTER HANDLING LATEX PRODUCTS SUCH RUBBER GLOVES, CONDOMS, DIAPHRAGMS, BALLOONS, SOCKS, OR UNDERWEAR?YES LATEX ALLERGY : HAVE YOU EVER DEVELOPED ANY TYPE OF REACTION DURING OR AFTER DENTAL APPOINTMENT, VAGINAL/RECTAL EXAMINATION, SURGICAL PROCEDURE, OR ANY OTHER EXPOSURE?YES DATE ASKED : 04/13/2019 LATEX RISK : HAVE YOU EVER HAD ANY DIFFICULTY BREATHING OR HIVES AFTER EATING OR HANDLING ANY FRUITS, OR VEGETABLES; SUCH KIWI, BANANAS, STONE FRUITS, OR CHESTNUTSYES LATEX RISK : DO YOU HAVE A PREVIOUS PERSONAL HISTORY OF MORE THAN NINE SURGERIES, SPINA BIFIDA, OR REPEATED CATHERIZATIONS? NO LATEX RISK : ARE YOU FREQUENTLY EXPOSED TO LATEX PRODUCTS IN YOUR OCCUPATION?NO LUNG CANCER SCREENING SMOKING STATUS:CURRENT SMOKER BMI CARE GOAL FOLLOW-UP ABOVE NORMAL BMI FOLLOW-UPLIFESTYLE EDUCATION REGARDING DIET ALCOHOL SCREENING DID YOU HAVE A DRINK CONTAINING ALCOHOL IN THE PAST YEAR?NO POINTS0 INTERPRETATIONNEGATIVE RECREATIONAL DRUG USE DRUG USE?YES HOW OFTEN AND HOW MUCH? SMOKES ONCE OR TWICE A WEEK FOR PAIN MANAGEMENT CAFFEINE CAFFEINE USE?YES 1 CUP PER DAY SEXUAL HX HAD SEX IN THE LAST 12 MONTHS (VAGINAL, ORAL, OR ANAL)?YES WITHMEN ONLY HAVE YOU EVER HAD AN STD?YES GC?YES CHLAMYDIA?YES HIV / HEP-C SCREENING HIV TEST OFFERED TO PATIENT:NO HEP-C TEST OFFERED TO PATIENT:NO GNOSTICIST [id number] HOLINESS LANGUAGE LANGUAGES SPOKEN:[place] EDUCATION LEVEL OF EDUCATION:HIGH SCHOOL LEARNING BARRIERS / SPECIAL NEEDS CHANGE FROM LAST VISIT?NO BARRIERS TO LEARNING?NO HEARING IMPAIRED?NO VISION IMPAIRED?YES COGNITIVELY IMPAIRED?NO BUILDING PRINCIPAL COMES WITH HER TO APPOINTMENTS :CORRECTIVE LENSES READINESS TO LEARN?YES LEARNING PREFERENCES?NO LEARNING CAPABILITIES PRESENT?YES EMOTIONAL BARRIERS?NO SPECIAL DEVICES?NO LIQUOR BLENDER NEEDED?NO DOMESTIC VIOLENCE DO YOU FEEL SAFE IN YOUR ENVIRONMENT?YES OCCUPATION: DISABLED. DIET: REGULAR. EXERCISE: NO REGULAR EXERCISE. MARITAL STATUS: SINGLE. OTHERS AT HOME: , NONE. NEW PATIENT PAIN DIARY TODAY'S VISITNOTES 07/14/19 PATIENT DESCRIBES PAIN :ACHING, HAVE IT ALL THE TIME, STABBING, SHOOTING FROM 0-10, WHAT LEVEL IS YOUR PAIN TODAY?7 PRECIPITATING FACTORS ACTIVITY ALLEVIATING FACTORS NOTHING IMPACT ON FUNCTION YES PAIN CLINIC PFS, CLERGY, PUBLIC HEALTH REFERRALS PFS REFERRAL NEEDED?NO CLERGY REFERRAL NEEDED?NO PUBLIC HEALTH REFERRAL NEEDED?NO WAS THE PROVIDER NOTIFIED OF ANY PERTINENT INFO?YES N/A HAS THE PATIENT BEEN EDUCATED REGARDING HIS/HER PLAN OF CARE?YES HAS THE PATIENT BEEN EDUCATED REGARDING PAIN, THE RISK FOR PAIN, THE IMPORTANCE OF EFFECTIVE PAIN MANAGEMENT, AND THE PAIN ASSESSMENT PROCESS?YES ADVANCE DIRECTIVE ADVANCE DIRECTIVE DISCUSSED WITH PATIENT:YES NO HCP, HAS THE PAPER WORK, DECLINES ASSISTANCE WITH FORM 04/13/2019 REVIEWED WITH PATIENT DS. HOSPITALIZATION/MAJOR DIAGNOSTIC PROCEDURE [facility] 04/26/17-05/01/17 NECK SURGERY REVIEW OF SYSTEMS REVIEWED BY: PROVIDER: FABIAN COX . CONSTITUTIONAL: ANY CHANGE IN YOUR MEDICAL CONDITION? NO . CHILLS NO . FEVER NO . INFECTION: DO YOU HAVE NEW INFECTIONS? NO . DO YOU HAVE HISTORY OF MRSA? NO . MUSCULOSKELETAL: ANY NEW PATTERNS OF PAIN OR NUMBNESS? NO . GASTROENTEROLOGY: ANY NEW CHANGE IN BOWEL CONTROL? NO . GENITOURINARY: ANY NEW CHANGE IN BLADDER CONTROL? NO . IS THERE A CHANCE YOU COULD BE ? NO . HEMATOLOGY/LYMPH: DO YOU TAKE ANY BLOOD THINNERS? (FOR EXAMPLE- COUMADIN, PLAVIX, AGGRENOX, PLATEL, PRADAXA, OR XARELTO) NO . WHEN WAS YOUR LAST DOSE? DATE: TIME: . NEUROLOGY: HAVE YOU FALLEN IN THE PAST 12 MONTHS? YES, FELL 2 DAYS AGO FROM LEG WEAKNESS AND PAIN, PT DENIES INJURIES . ANY NEW EXTREMITY NUMBNESS OR WEAKNESS? NO . CARDIOLOGY: DO YOU HAVE A PACEMAKER OR DEFIBRILLATOR? NO . RESPIRATORY: HAVE YOU BEEN SICK IN THE PAST WEEK? NO . FEVER NO . FLU LIKE SYMPTOMS? NO . COUGH NO . INTEGUMENTARY: DO YOU HAVE ANY RASHES OR OPEN SORES? NO . ALLERGIC/IMMUNO: ARE YOU ALLERGIC TO IV DYE? NO . ANY NEW ALLERGIES? NO . PSYCHIATRIC: DO YOU HAVE THOUGHTS OF HURTING YOURSELF OR SOMEONE ELSE? NO . ARE YOU ABUSED, NEGLECTED, OR IN AN UNSAFE ENVIRONMENT? NO . ENDOCRINOLOGY: ARE YOU DIABETIC? NO . OTHER: DO YOU NEED ANY PRESCRIPTIONS? NO . IF YES, PLEASE LIST: ____ . ANY NEW PROBLEMS WITH YOUR MEDICATIONS? NO . WHEN DID YOU LAST EAT? ____ . WHEN DID YOU LAST DRINK? ____ . WHAT DID YOU LAST DRINK? ____ . NAME OF PERSON DRIVING YOU HOME? ____ . DO YOU HAVE ANY OTHER QUESTIONS OR CONCERNS PT ASKING FOR IBUPROFEN FOR NECK SWELLING . EXAMINATION GENERAL EXAMINATION: PSYCHAPPROPRIATE MOOD AND AFFECT , ORIENTED X 3. ASSESSMENTS INTERVERTEBRAL DISC DISORDERS WITH RADICULOPATHY, LUMBAR REGION - M51.16 (PRIMARY) TREATMENT INTERVERTEBRAL DISC DISORDERS WITH RADICULOPATHY, LUMBAR REGION START IBUPROFEN TABLET, 800 MG, 1 TABLET WITH FOOD OR MILK NEEDED, ORALLY, THREE TIMES A DAY PRN, 30 DAYS, 90 CLINICAL NOTES: 44-YEAR-OLD FEMALE FOR CHRONIC PAIN FOLLOW-UP. MRIS WERE REVIEWED WITH PATIENT TODAY. GIVEN PRESENTING SYMPTOMS RECOMMEND FOLLOW-UP IN ONE MONTH IN CLINIC TO DISCUSS CONTINUATION OF DCS TRIAL. THIS ELECTRICAL INSTRUMENT MAKER ASKED PATIENT PERMISSION TO GIVE HER INFORMATION TO THE DCS REP'S TODAY SO THEY COULD CONTACT HER TO DISCUSS TRIAL AND PATIENT AGREED TO THIS. REFERRAL WAS SENT FOR PSYCH ASSESSMENT FOR DCS TRIAL. PATIENT HAS EXPRESSED UNDERSTANDING OF AND WAS IN AGREEMENT WITH TREATMENT PLAN. GIVEN TIME TO ASK QUESTIONS AND EXPRESS CONCERNS. VISIT TO BE BILLED BASED ON TIME SPENT WITH PATIENT. TIME SPENT WITH PATIENT 11 MINUTES. DISPOSITION & COMMUNICATION FOLLOW UP 4 WEEKS IN CLINIC (REASON: BACK PAIN) ELECTRONICALLY SIGNED BY JENNIFER WALDRON ON 07/15/2019 AT 09:13 AM EDT DISCLAIMER : THIS IS A VISIT SUMMARY EXTRACTED FROM THE [email or web address] CHART. IT IS NOT A COPY OF THE [email or web address] PROGRESS NOTE. ED
== END ==
LOC: M PAIN 10:15
PROVIDERS: ATTEND Family Medicine
DX: M51.16 Intervertebral disc disorders with radiculopathy, lumbar region (principal); G89.29 Other chronic pain; M79.7 Fibromyalgia; E03.9 Hypothyroidism, unspecified; F17.210 Nicotine dependence, cigarettes, uncomplicated; Z88.8 Allergy status to other drugs, medicaments and biological substances; Z91.040 Latex allergy status; Z91.09 Other allergy status, other than to drugs and biological substances; Z79.899 Other long term (current) drug therapy

== ENCOUNTER → 2019-08-11 | Outpatient (CLI) | payer OTHER ==
--- NOTE | 2019-08-13 02:50 | ECWPNPC ---
PATIENT NAME: JOSEPH AVILEZ : 1975 GENDER: FEMALE VISIT DATE: 08/11/2019 DISCHARGE DATE: 08/11/19 1337 VISIT LOCKED DATE TIME: PHYSICIAN: JOANA MORAN RESOURCE: JOANA MORAN REASON FOR APPOINTMENT 1. BACK PAIN HISTORY OF PRESENT ILLNESS GENERAL: - 44-YEAR-OLD FEMALE IN FOR CHRONIC PAIN FOLLOW-UP. AT LAST CLINIC VISIT DCS TRIAL WAS DISCUSSED WITH PATIENT. PATIENT HAS SINCE SPOKEN WITH ERIN FROM [employer] WITH REGARDS TO DCS TRIAL. SHE RATES HER PAIN CURRENTLY AT A 4-8 OUT OF 10 AND DESCRIBES IT ACHING, BURNING, CONTINUOUS, SHARP, STABBING, TENDER, SORE, SHOOTING AND THROBBING. FALL RISK SCREENING: SCREENING :TWO OR MORE FALLS WITHOUT INJURY IN THE PAST YEAR PT USING CANE AND LIFT CHAIR FOR AMBULATION AIDES PAIN SCREENING: PATIENT HAS A COMPLAINT OF ACUTE OR CHRONIC PAIN :YES INTENSITY OF PAIN (SCALE OF 1 TO 10):4 LOW BACK 4 NECK AND SHOULDERS 8 WHAT DOES YOUR PAIN FEEL LIKE:ACHING, BURNING, CONTINOUS, SHARP, STABBING, TENDER, THROBBING, SORE, SHOOTING DURATION:CONTINOUS, CONSTANT, ALL DAY, ONLY WITH SPECIFIC ACTIVITIES PAIN IS INREASED BY:ACTIVITIES PAIN IS DECREASED BY:OTHERS GOOD WEATHER, SUNSHINE, RELAXING NURSING NOTE: -. PAIN CENTER INTAKE QUESTIONS: DO YOU HAVE A HISTORY OF MRSA? :NO DO YOU TAKE A BLOOD THINNERS? :NO DO YOU HAVE ANY BLEEDING DISORDERS? :NO ANY NEW NUMBNESS OR WEAKNESS IN YOUR LEGS OR ARMS? :NO ANY PACEMAKER,DEFIBRILLATOR, OR DORSAL COLUMN STIMULATOR? :NO DO YOU HAVE ANY RASHES OR OPEN SORES? :NO ARE YOU ALLERGIC TO IV DYE? :NO ARE YOU DIABETIC? :NO ANY NEW PROBLEMS WITH YOUR MEDICATIONS? :NO HAVE YOU RECEIVED A VACCINE IN THE PAST 30 DAYS? :NO DO YOU PLAN TO RECEIVE A VACCINE IN THE NEXT 21 DAYS? :NO DO YOU NEED ANY PRESCRIPTION? :NO DO YOU TAKE ANY IMMUNOSUPPRESSIVE MEDICATIONS? :NO CURRENT MEDICATIONS TAKING REFRESH OPTIVE 0.5-0.9 % SOLUTION OPHTHALMIC TAKING CYMBALTA 60 MG CAPSULE DELAYED RELEASE PARTICLES 2 CAPSULES ORALLY ONCE A DAY TAKING QUETIAPINE FUMARATE 100 MG TABLET 2 TABLET ORALLY TAKES 800 MG IN PM TAKING QUETIAPINE FUMARATE 300 MG TABLET 2 TABLET AT BEDTIME ORALLY TAKES 800 MG IN PM ONCE A DAY TAKING PRAZOSIN HCL 2 MG CAPSULE 1 CAPSULE AT BEDTIME ORALLY ONCE A DAY TAKING KLONOPIN 0.5 MG TABLET 2 TABLET DAILY NEEDED ONCE A DAY TAKING PROPRANOLOL HCL 10 MG TABLET TAKE ONE TABLET BY MOUTH TWICE DAILY BOTTLE ORAL TAKING ROLLER WALKER - MISCELLANEOUS DIRECTED WITH WHEELS, SEAT AND BRAKE TAKING NYSTATIN [id number] UNIT/GM POWDER 1 NULL TO AFFECTED AREA EXTERNALLY TWICE A DAY TAKING CETIRIZINE HCL 10 MG TABLET 1 TABLET ORALLY ONCE A DAY TAKING OXYBUTYNIN CHLORIDE 5 MG TABLET 1 TABLET ORALLY ONCE A DAY TAKING VENTOLIN HFA 108 (90 BASE) MCG/ACT AEROSOL SOLUTION 2 PUFFS NEEDED INHALATION EVERY 4 HRS PRN TAKING TOPIRAMATE 100 MG TABLET 1 TABLET ORALLY ONCE DAILY AT NIGHT TAKING LEVOTHYROXINE SODIUM 25 MCG TABLET 1 TABLET IN THE MORNING ON AN EMPTY STOMACH ORALLY ONCE DAILY TAKING IBUPROFEN 800 MG TABLET 1 TABLET WITH FOOD OR MILK NEEDED ORALLY THREE TIMES A DAY PRN TAKING CYMBALTA 30 MG CAPSULE DELAYED RELEASE PARTICLES 1 CAPSULE ORALLY ONCE A DAY MEDICATION LIST REVIEWED AND RECONCILED WITH THE PATIENT PAST MEDICAL HISTORY GRAND MAL SEIZURES RT SHOULDER STRAIN- NCOG TOBACCO USE EKG PROLONGED QT INTERVAL PREOP APPENDECTOMY OTHERWISE NML- CARDIO EVALUATED- SEE NOTE. ETT [facility] 04/30 NEG ISCHEMIA ECHO [facility]- 04/30- NML SYST AND DIASTOLIC FUNCTION 11/27 NSR, RARE ISOLATED PAC. EEG 09/15/14- NO EPILEPTIFORM ACTIVITY FIBROMYALGIA (TIGGOR POINT INJECTIONS WITH DR. 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 MORAN IN APRIL 2019) SHIELD RUNNER: ORIANA RIVERA, ALLERGIES EFFEXOR: WILD MOOD CHANGES MELA TO BIPOLAR I - SIDE EFFECTS LATEX (FOR ALLERGY USE ONLY): RASH - ALLERGY METHOCARBAMOL: LOWERS SEIZURE THRESHOLD - SIDE EFFECTS ADHESIVE: HIVES - ALLERGY ENVIRONMENTAL (DOG, DANDER), TOMATOE: HIVES - ALLERGY CAT DANDER SURGICAL HISTORY OVARY ON CYST RUPTERED 1993 TUBAL LIGATION 2001 APPENDECTOMY 09/26/13 C-5, C-6, C-7 DISKECTOMY, OSTEOPHYTECTOMY 01/2015 FAMILY HISTORY FATHER: UNKNOWN 71 YRS, CAD, S/P CABG, PANCREATIC CA MOTHER: ALIVE 64 YRS, CEREBRAL ANEURYSM, THYROID DISEASE, DIAGNOSED WITH OTHER SPECIFIED CONDITIONS INFLUENCING HEALTH STATUS SIBLINGS: ALIVE, SISTER (1) - NOT MUCH INFORMATION BROTHER (1) - NARCISSISTIC PERSONALITY DISORDER HALF- SISTERS (1) - 1 WITH DEPRESSION, PTSD, ANXIETY, CERVICAL CA, SON(S): ALIVE, SONS (3) - 1 WITH RAD A CHILD 1 BROTHER(S) , 2 SISTER(S) - HEALTHY. 3 SON(S) - HEALTHY. MOM-HYPOTHYROIDISM, BRAIN ANEURYSM,PSYCHIATRIC ISSUESONE SISTER WITH EMBOLISM, NO KNOWN UROLOGICAL FAMILY HISTORY. SOCIAL HISTORY GENERAL: TOBACCO USE ARE YOU A:CURRENT SMOKER ARE YOU INTERESTED IN QUITTING?NOT READY TO QUIT COUNSELED THE PATIENT ON SMOKING EFFECTS, EDUCATION EDBUSKPG24/30/2020 HOW MANY CIGARETTES A DAY DO YOU SMOKE?6-10 PATIENT COUNSELED ON THE DANGERS OF TOBACCO USE AND URGED TO QUIT:08/11/2019 SMOKING CESSATION INFORMATION GIVEN06/14/2019 LATEX QUESTIONNAIRE LATEX ALLERGY : HAVE YOU EVER DEVELOPED ANY TYPE OF REACTION AFTER HANDLING LATEX PRODUCTS SUCH RUBBER GLOVES, CONDOMS, DIAPHRAGMS, BALLOONS, SOCKS, OR UNDERWEAR?YES LATEX ALLERGY : HAVE YOU EVER DEVELOPED ANY TYPE OF REACTION DURING OR AFTER DENTAL APPOINTMENT, VAGINAL/RECTAL EXAMINATION, SURGICAL PROCEDURE, OR ANY OTHER EXPOSURE?YES LATEX RISK : HAVE YOU EVER HAD ANY DIFFICULTY BREATHING OR HIVES AFTER EATING OR HANDLING ANY FRUITS, OR VEGETABLES; SUCH KIWI, BANANAS, STONE FRUITS, OR CHESTNUTSYES LATEX RISK : DO YOU HAVE A PREVIOUS PERSONAL HISTORY OF MORE THAN NINE SURGERIES, SPINA BIFIDA, OR REPEATED CATHERIZATIONS? NO LATEX RISK : ARE YOU FREQUENTLY EXPOSED TO LATEX PRODUCTS IN YOUR OCCUPATION?NO DATE ASKED : 08/11/2019 LUNG CANCER SCREENING SMOKING STATUS:CURRENT SMOKER BMI CARE GOAL FOLLOW-UP ABOVE NORMAL BMI FOLLOW-UPLIFESTYLE EDUCATION REGARDING DIET ALCOHOL SCREENING DID YOU HAVE A DRINK CONTAINING ALCOHOL IN THE PAST YEAR?NO POINTS0 INTERPRETATIONNEGATIVE RECREATIONAL DRUG USE DRUG USE?YES HOW OFTEN AND HOW MUCH? SMOKES ONCE OR TWICE A WEEK FOR PAIN MANAGEMENT CAFFEINE CAFFEINE USE?YES 1 CUP PER DAY SEXUAL HX HAD SEX IN THE LAST 12 MONTHS (VAGINAL, ORAL, OR ANAL)?YES WITHMEN ONLY HAVE YOU EVER HAD AN STD?YES GC?YES CHLAMYDIA?YES HIV / HEP-C SCREENING HIV TEST OFFERED TO PATIENT:NO HEP-C TEST OFFERED TO PATIENT:NO EPISCOPAL [id number] AMISH LANGUAGE LANGUAGES SPOKEN:[place] EDUCATION LEVEL OF EDUCATION:HIGH SCHOOL LEARNING BARRIERS / SPECIAL NEEDS CHANGE FROM LAST VISIT?NO BARRIERS TO LEARNING?NO HEARING IMPAIRED?NO VISION IMPAIRED?YES COGNITIVELY IMPAIRED?NO SHIELD RUNNER COMES WITH HER TO APPOINTMENTS :CORRECTIVE LENSES READINESS TO LEARN?YES LEARNING PREFERENCES?NO LEARNING CAPABILITIES PRESENT?YES EMOTIONAL BARRIERS?NO SPECIAL DEVICES?NO ENGRAVER RUBBER NEEDED?NO DOMESTIC VIOLENCE DO YOU FEEL SAFE IN YOUR ENVIRONMENT?YES OCCUPATION: DISABLED. DIET: REGULAR. EXERCISE: NO REGULAR EXERCISE. MARITAL STATUS: SINGLE. OTHERS AT HOME: , NONE. NEW PATIENT PAIN DIARY TODAY'S VISITNOTES PATIENT DESCRIBES PAIN :ACHING, HAVE IT ALL THE TIME, STABBING, SHOOTING FROM 0-10, WHAT LEVEL IS YOUR PAIN TODAY?7 PRECIPITATING FACTORS ACTIVITY ALLEVIATING FACTORS NOTHING IMPACT ON FUNCTION YES PAIN CLINIC PFS, CLERGY, PUBLIC HEALTH REFERRALS PFS REFERRAL NEEDED?NO CLERGY REFERRAL NEEDED?NO PUBLIC HEALTH REFERRAL NEEDED?NO WAS THE PROVIDER NOTIFIED OF ANY PERTINENT INFO?YES N/A HAS THE PATIENT BEEN EDUCATED REGARDING HIS/HER PLAN OF CARE?YES HAS THE PATIENT BEEN EDUCATED REGARDING PAIN, THE RISK FOR PAIN, THE IMPORTANCE OF EFFECTIVE PAIN MANAGEMENT, AND THE PAIN ASSESSMENT PROCESS?YES ADVANCE DIRECTIVE ADVANCE DIRECTIVE DISCUSSED WITH PATIENT:YES NO HCP, HAS THE PAPER WORK, DECLINES ASSISTANCE WITH FORM HOSPITALIZATION/MAJOR DIAGNOSTIC PROCEDURE [facility] 04/26/17-05/01/17 NECK SURGERY REVIEW OF SYSTEMS CONSTITUTIONAL: ANY RECENT FEVER OR ILLNESS NO . CHILLS NO . GASTROENTEROLOGY: BOWEL INCONTINENCE NO . ANY NEW CHANGE IN BOWEL CONTROL? NO . ABDOMINAL PAIN NO . CONSTIPATION NO . GENITOURINARY: ANY NEW CHANGE IN BLADDER CONTROL? NO . IS THERE A CHANCE YOU COULD BE ? NO . URINARY INCONTINENCE NO . CARDIOLOGY: CHEST PRESSURE NO . CHEST PAIN NO . RESPIRATORY: COUGH NO . SHORTNESS OF BREATH NO . VITAL SIGNS WT 236.8 LBS, HT 65 IN, BMI 39.40 INDEX, BP 105/62 MM HG, HR 96 /MIN, RR 16 /MIN, TEMP 97.8 F, OXYGEN SAT % 96%, SAFE IN ENV? (Y/N) Y, NA INITIALS TL 1305, REVIEWED BY: NAA. EXAMINATION GENERAL EXAMINATION: GENERALNO ACUTE DISTRESS, WELL NOURISHED AND HYDRATED. PSYCHAPPROPRIATE MOOD AND AFFECT . LUNGS:CLEAR TO AUSCULTATION BILATERALLY, NO WHEEZES, RHONCHI, RALES. HEART:NO MURMURS, REGULAR RATE AND RHYTHM. ASSESSMENTS INTERVERTEBRAL DISC DISORDERS WITH RADICULOPATHY, LUMBAR REGION - M51.16 (PRIMARY) TREATMENT INTERVERTEBRAL DISC DISORDERS WITH RADICULOPATHY, LUMBAR REGION CLINICAL NOTES: 44-YEAR-OLD FEMALE IN FOR CHRONIC PAIN FOLLOW-UP. DISCUSSED DCS TRIAL WITH PATIENT OF THIS TIME SHE HAS NOT RECEIVED AN APPOINTMENT FOR HER PSYCH EVAL. INFORMED PATIENT THIS SENIOR RESEARCH CONSULTANT WOULD CHECK INTO THIS FURTHER FOR HER. MRIS REVIEWED WITH PATIENT TODAY. ERIN FROM [facility] HERE TO DISCUSS DCS TRIAL WITH PATIENT. INFORMED PATIENT THAT WE'LL FOLLOW-UP STATUS POST PSYCH EVAL. PATIENT HAS EXPRESSED UNDERSTANDING OF AND WAS IN AGREEMENT WITH TREATMENT PLAN. GIVEN TIME TO ASK QUESTIONS AND EXPRESS CONCERNS. PREVENTIVE MEDICINE PAIN CLINIC TEACHING: THE PATIENT HAS BEEN EDUCATED REGARDING PAIN, THE RISK FOR PAIN, THE IMPORTANCE OF EFFECTIVE PAIN MANAGEMENT, AND THE PAIN ASSESSMENT PROCESS. : REVIEWED AND DISCUSSED TREATMENT CARE PROGRAM AND DISCHARGE INSTRUCTIONS WITH PATENT. DS PROCEDURE CODES [id number] ESTABILISHED PATIENT [facility] CHARGE DISPOSITION & COMMUNICATION FOLLOW UP POST EVAL (REASON: PSYCH EVAL) ELECTRONICALLY SIGNED BY JENNIFER WALDRON ON 08/12/2019 AT 08:10 AM EDT DISCLAIMER : THIS IS A VISIT SUMMARY EXTRACTED FROM THE [employer] CHART. IT IS NOT A COPY OF THE [employer] PROGRESS NOTE. ED
== END ==
LOC: M PAIN 13:15
PROVIDERS: ATTEND Family Medicine
DX: M51.16 Intervertebral disc disorders with radiculopathy, lumbar region (principal)

== ENCOUNTER → 2019-09-27 | Outpatient (CLI) | payer OTHER ==
--- NOTE | 2019-09-29 01:50 | ECWPNPC ---
PATIENT NAME: JOSEPH AVILEZ : 1975 GENDER: FEMALE VISIT DATE: 09/27/2019 DISCHARGE DATE: 09/27/19 1358 VISIT LOCKED DATE TIME: PHYSICIAN: JOANA MORAN RESOURCE: JOANA MORAN REASON FOR APPOINTMENT 1. POST PSYCH EVAL HISTORY OF PRESENT ILLNESS GENERAL: - 44-YEAR-OLD FEMALE IN FOR CHRONIC PAIN FOLLOW-UP. PATIENT HAD A RECENT PSYCH EVAL PERFORMED WHICH WILL BE REVIEWED WITH PATIENT TODAY. SHE RATES HER PAIN CURRENTLY AT A 6 OUT OF 10 AND DESCRIBES IT ACHING, STABBING, THROBBING, AND SHOOTING. FALL RISK SCREENING: SCREENING :TWO OR MORE FALLS WITHOUT INJURY IN THE PAST YEAR PAIN SCREENING: PATIENT HAS A COMPLAINT OF ACUTE OR CHRONIC PAIN :YES LOCATION OF PAIN:NECK, LOW BACK INTENSITY OF PAIN (SCALE OF 1 TO 10):6 WHAT DOES YOUR PAIN FEEL LIKE:ACHING, STABBING, THROBBING, SHOOTING DURATION:CONTINOUS, CONSTANT, ALL DAY PAIN IS INCREASED BY:ACTIVITIES PAIN IS DECREASED BY: SITTING, RELAXING, IBUPROFEN PAIN HAS INTERFERED WITH THE FOLLOWING:MOOD, WALKING ABILITY, HOUSEWORK, RELATIONSHIP WITH OTHERS, ENJOYMENT OF LIFE PLAN/GOALS/TREATMENT/INTERVENTION/FOLLOW UP:SEE PLAN NURSING NOTE: -. PAIN CENTER INTAKE QUESTIONS: DO YOU HAVE A HISTORY OF MRSA? :NO DO YOU TAKE A BLOOD THINNERS? :NO DO YOU HAVE ANY BLEEDING DISORDERS? :NO ANY NEW NUMBNESS OR WEAKNESS IN YOUR LEGS OR ARMS? :NO ANY PACEMAKER,DEFIBRILLATOR, OR DORSAL COLUMN STIMULATOR? :NO DO YOU HAVE ANY RASHES OR OPEN SORES? :NO ARE YOU ALLERGIC TO IV DYE? :NO ARE YOU DIABETIC? :NO ANY NEW PROBLEMS WITH YOUR MEDICATIONS? :NO HAVE YOU RECEIVED A VACCINE IN THE PAST 30 DAYS? :NO DO YOU PLAN TO RECEIVE A VACCINE IN THE NEXT 21 DAYS? :NO DO YOU NEED ANY PRESCRIPTION? :YES IBUPROFEN DO YOU TAKE ANY IMMUNOSUPPRESSIVE MEDICATIONS? :NO IS THERE A CHANCE YOU COULD BE ? :NO ARE YOU BREAST FEEDING? :NO CURRENT MEDICATIONS TAKING REFRESH OPTIVE 0.5-0.9 % SOLUTION OPHTHALMIC TAKING CYMBALTA 60 MG CAPSULE DELAYED RELEASE PARTICLES 2 CAPSULES ORALLY ONCE A DAY TAKING QUETIAPINE FUMARATE 100 MG TABLET 2 TABLET ORALLY TAKES 800 MG IN PM TAKING QUETIAPINE FUMARATE 300 MG TABLET 2 TABLET AT BEDTIME ORALLY TAKES 800 MG IN PM ONCE A DAY TAKING PRAZOSIN HCL 2 MG CAPSULE 1 CAPSULE AT BEDTIME ORALLY ONCE A DAY TAKING KLONOPIN 0.5 MG TABLET 2 TABLET DAILY NEEDED ONCE A DAY TAKING PROPRANOLOL HCL 10 MG TABLET TAKE ONE TABLET BY MOUTH TWICE DAILY BOTTLE ORAL TAKING ROLLER WALKER - MISCELLANEOUS DIRECTED WITH WHEELS, SEAT AND BRAKE TAKING NYSTATIN [id number] UNIT/GM POWDER 1 NULL TO AFFECTED AREA EXTERNALLY TWICE A DAY TAKING VENTOLIN HFA 108 (90 BASE) MCG/ACT AEROSOL SOLUTION 2 PUFFS NEEDED INHALATION EVERY 4 HRS PRN TAKING TOPIRAMATE 100 MG TABLET 1 TABLET ORALLY ONCE DAILY AT NIGHT TAKING LEVOTHYROXINE SODIUM 25 MCG TABLET 1 TABLET IN THE MORNING ON AN EMPTY STOMACH ORALLY ONCE DAILY TAKING IBUPROFEN 800 MG TABLET 1 TABLET WITH FOOD OR MILK NEEDED ORALLY THREE TIMES A DAY PRN TAKING CYMBALTA 30 MG CAPSULE DELAYED RELEASE PARTICLES 1 CAPSULE ORALLY ONCE A DAY TAKING OXYBUTYNIN CHLORIDE 5 MG TABLET 1 TABLET ORALLY ONCE A DAY TAKING CETIRIZINE HCL 10 MG TABLET 1 TABLET ORALLY ONCE A DAY MEDICATION LIST REVIEWED AND RECONCILED WITH THE PATIENT PAST MEDICAL HISTORY GRAND MAL SEIZURES RT SHOULDER STRAIN- NCOG TOBACCO USE EKG PROLONGED QT INTERVAL PREOP APPENDECTOMY OTHERWISE NML- CARDIO EVALUATED- SEE NOTE. ETT [facility] 04/30 NEG ISCHEMIA ECHO [facility]- 04/30- NML SYST AND DIASTOLIC FUNCTION 11/27 NSR, RARE ISOLATED PAC. EEG 09/15/14- NO EPILEPTIFORM ACTIVITY FIBROMYALGIA (TIGGOR POINT INJECTIONS WITH DR. 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 MORAN IN APRIL 2019) KILN BURNER: ORIANA RIVERA, ALLERGIES EFFEXOR: WILD MOOD CHANGES MELA TO BIPOLAR I - SIDE EFFECTS LATEX (FOR ALLERGY USE ONLY): RASH - ALLERGY METHOCARBAMOL: LOWERS SEIZURE THRESHOLD - SIDE EFFECTS ADHESIVE: HIVES - ALLERGY ENVIRONMENTAL (DOG, DANDER), TOMATOE: HIVES - ALLERGY CAT DANDER SURGICAL HISTORY OVARY ON CYST RUPTERED 1993 TUBAL LIGATION 2001 APPENDECTOMY 09/26/13 C-5, C-6, C-7 DISKECTOMY, OSTEOPHYTECTOMY 01/2015 FAMILY HISTORY FATHER: UNKNOWN 71 YRS, CAD, S/P CABG, PANCREATIC CA MOTHER: ALIVE 64 YRS, CEREBRAL ANEURYSM, THYROID DISEASE, DIAGNOSED WITH OTHER SPECIFIED CONDITIONS INFLUENCING HEALTH STATUS SIBLINGS: ALIVE, SISTER (1) - NOT MUCH INFORMATION BROTHER (1) - NARCISSISTIC PERSONALITY DISORDER HALF- SISTERS (1) - 1 WITH DEPRESSION, PTSD, ANXIETY, CERVICAL CA, SON(S): ALIVE, SONS (3) - 1 WITH RAD A CHILD 1 BROTHER(S) , 2 SISTER(S) - HEALTHY. 3 SON(S) - HEALTHY. MOM-HYPOTHYROIDISM, BRAIN ANEURYSM,PSYCHIATRIC ISSUESONE SISTER WITH EMBOLISM, NO KNOWN UROLOGICAL FAMILY HISTORY. SOCIAL HISTORY GENERAL: TOBACCO USE ARE YOU A:CURRENT SMOKER ARE YOU INTERESTED IN QUITTING?NOT READY TO QUIT COUNSELED THE PATIENT ON SMOKING EFFECTS, EDUCATION [id number]/14/2020 HOW MANY CIGARETTES A DAY DO YOU SMOKE?6-10 PATIENT COUNSELED ON THE DANGERS OF TOBACCO USE AND URGED TO QUIT:09/27/2019 SMOKING CESSATION INFORMATION GIVEN09/27/2019 LATEX QUESTIONNAIRE LATEX ALLERGY : HAVE YOU EVER DEVELOPED ANY TYPE OF REACTION AFTER HANDLING LATEX PRODUCTS SUCH RUBBER GLOVES, CONDOMS, DIAPHRAGMS, BALLOONS, SOCKS, OR UNDERWEAR?YES LATEX ALLERGY : HAVE YOU EVER DEVELOPED ANY TYPE OF REACTION DURING OR AFTER DENTAL APPOINTMENT, VAGINAL/RECTAL EXAMINATION, SURGICAL PROCEDURE, OR ANY OTHER EXPOSURE?YES LATEX RISK : HAVE YOU EVER HAD ANY DIFFICULTY BREATHING OR HIVES AFTER EATING OR HANDLING ANY FRUITS, OR VEGETABLES; SUCH KIWI, BANANAS, STONE FRUITS, OR CHESTNUTSYES LATEX RISK : DO YOU HAVE A PREVIOUS PERSONAL HISTORY OF MORE THAN NINE SURGERIES, SPINA BIFIDA, OR REPEATED CATHERIZATIONS? NO LATEX RISK : ARE YOU FREQUENTLY EXPOSED TO LATEX PRODUCTS IN YOUR OCCUPATION?NO DATE ASKED : 09/27/2019 LUNG CANCER SCREENING SMOKING STATUS:CURRENT SMOKER BMI CARE GOAL FOLLOW-UP ABOVE NORMAL BMI FOLLOW-UPLIFESTYLE EDUCATION REGARDING DIET ALCOHOL SCREENING DID YOU HAVE A DRINK CONTAINING ALCOHOL IN THE PAST YEAR?NO POINTS0 INTERPRETATIONNEGATIVE RECREATIONAL DRUG USE DRUG USE?YES HOW OFTEN AND HOW MUCH? SMOKES ONCE OR TWICE A WEEK FOR PAIN MANAGEMENT CAFFEINE CAFFEINE USE?YES 1 CUP PER DAY SEXUAL HX HAD SEX IN THE LAST 12 MONTHS (VAGINAL, ORAL, OR ANAL)?YES WITHMEN ONLY HAVE YOU EVER HAD AN STD?YES GC?YES CHLAMYDIA?YES HIV / HEP-C SCREENING HIV TEST OFFERED TO PATIENT:NO HEP-C TEST OFFERED TO PATIENT:NO LATTER DAY [id number] [employer] LANGUAGE LANGUAGES SPOKEN:SAUDI ARABIAN EDUCATION LEVEL OF EDUCATION:HIGH SCHOOL LEARNING BARRIERS / SPECIAL NEEDS CHANGE FROM LAST VISIT?NO BARRIERS TO LEARNING?NO HEARING IMPAIRED?NO VISION IMPAIRED?YES COGNITIVELY IMPAIRED?NO KILN BURNER COMES WITH HER TO APPOINTMENTS :CORRECTIVE LENSES READINESS TO LEARN?YES LEARNING PREFERENCES?NO LEARNING CAPABILITIES PRESENT?YES EMOTIONAL BARRIERS?NO SPECIAL DEVICES?NO SET UP TECHNICIAN NEEDED?NO DOMESTIC VIOLENCE DO YOU FEEL SAFE IN YOUR ENVIRONMENT?YES OCCUPATION: DISABLED. DIET: REGULAR. EXERCISE: NO REGULAR EXERCISE. MARITAL STATUS: SINGLE. OTHERS AT HOME: , NONE. NEW PATIENT PAIN DIARY TODAY'S VISITNOTES PATIENT DESCRIBES PAIN :ACHING, HAVE IT ALL THE TIME, STABBING, SHOOTING FROM 0-10, WHAT LEVEL IS YOUR PAIN TODAY?7 PRECIPITATING FACTORS ACTIVITY ALLEVIATING FACTORS NOTHING IMPACT ON FUNCTION YES PAIN CLINIC PFS, CLERGY, PUBLIC HEALTH REFERRALS PFS REFERRAL NEEDED?NO CLERGY REFERRAL NEEDED?NO PUBLIC HEALTH REFERRAL NEEDED?NO WAS THE PROVIDER NOTIFIED OF ANY PERTINENT INFO?YES N/A HAS THE PATIENT BEEN EDUCATED REGARDING HIS/HER PLAN OF CARE?YES HAS THE PATIENT BEEN EDUCATED REGARDING PAIN, THE RISK FOR PAIN, THE IMPORTANCE OF EFFECTIVE PAIN MANAGEMENT, AND THE PAIN ASSESSMENT PROCESS?YES ADVANCE DIRECTIVE ADVANCE DIRECTIVE DISCUSSED WITH PATIENT:YES NO HCP, HAS THE PAPER WORK, DECLINES ASSISTANCE WITH FORM HOSPITALIZATION/MAJOR DIAGNOSTIC PROCEDURE [facility]IL[facility] 04/26/17-05/01/17 NECK SURGERY REVIEW OF SYSTEMS CONSTITUTIONAL: ANY RECENT FEVER NO . CHILLS NO . WEIGHT CHANGE OF UNKNOWN REASONS NO . GASTROENTEROLOGY: NEW UNEXPLAINABLE CHANGES IN BOWEL CONTROL NO . CONSTIPATION NO . GENITOURINARY: ANY NEW CHANGE IN BLADDER CONTROL? NO . NEUROLOGY: NEW ONSET DIZZINESS OR NEUROLOGICAL CHANGES NOT MENTIONED NO . NEW NUMBNESS OR PAIN PATTERNS NOT MENTIONED AND PERTINENT TO TODAY'S VISIT NO . CARDIOLOGY: NEW CHEST PRESSURE NO . NEW CHEST PAIN NO . RESPIRATORY: UNEXPLAINABLE COUGH NO . NEW SHORTNESS OF BREATH NO . VITAL SIGNS WT 230.6 LBS, HT 65 IN, BMI 38.37 INDEX, BP 115/71 MM HG, HR 86 /MIN, RR 18 /MIN, TEMP 96.3 F, OXYGEN SAT % 95%, SAFE IN ENV? (Y/N) Y, NA INITIALS AW [id number] ASUMADU ADOLESCENT PSYCHIATRIST. EXAMINATION GENERAL EXAMINATION: GENERALNO ACUTE DISTRESS, WELL NOURISHED AND HYDRATED. PSYCHAPPROPRIATE MOOD AND AFFECT . LUNGS:CLEAR TO AUSCULTATION BILATERALLY, NO WHEEZES, RHONCHI, RALES. HEART:NO MURMURS, REGULAR RATE AND RHYTHM. ASSESSMENTS INTERVERTEBRAL DISC DISORDERS WITH RADICULOPATHY, LUMBAR REGION - M51.16 (PRIMARY) TREATMENT INTERVERTEBRAL DISC DISORDERS WITH RADICULOPATHY, LUMBAR REGION REFILL IBUPROFEN TABLET, 800 MG, 1 TABLET WITH FOOD OR MILK NEEDED, ORALLY, THREE TIMES A DAY PRN, 30 DAYS, 90 CLINICAL NOTES: 44-YEAR-OLD FEMALE IN FOR CHRONIC PAIN FOLLOW-UP. PSYCH EVAL WAS DISCUSSED WITH PATIENT AND WE WILL GO FOR DCS TRIAL. PATIENT ADMITS TO AN UPCOMING TELEHEALTH VISIT WITH DR. GIBBS. NO NEW ORDERS AT THIS TIME. PATIENT HAS EXPRESSED UNDERSTANDING OF AND WAS IN AGREEMENT WITH TREATMENT PLAN. GIVEN TIME TO ASK QUESTIONS AND EXPRESS CONCERNS. PROCEDURE CODES FA211 ESTABILISHED PATIENT [facility] CHARGE DISPOSITION & COMMUNICATION FOLLOW UP 2 MONTHS (REASON: BACK PAIN) ELECTRONICALLY SIGNED BY JENNIFER WALDRON ON 09/28/2019 AT 08:37 AM EDT DISCLAIMER : THIS IS A VISIT SUMMARY EXTRACTED FROM THE [email or web address] CHART. IT IS NOT A COPY OF THE [email or web address] PROGRESS NOTE. MTDD
== END ==
LOC: M PAIN 13:30
PROVIDERS: ATTEND Family Medicine
DX: M51.16 Intervertebral disc disorders with radiculopathy, lumbar region (principal)

== ENCOUNTER → 2019-09-30 | Outpatient (CLI) | payer OTHER ==
--- NOTE | 2019-10-04 00:46 | ECWPNPC ---
PATIENT NAME: JOSEPH AVILEZ : 1975 GENDER: FEMALE VISIT DATE: 09/30/2019 DISCHARGE DATE: 09/30/19 1415 VISIT LOCKED DATE TIME: PHYSICIAN: DELTA GIBBS MD RESOURCE: DELTA GIBBS MD REASON FOR APPOINTMENT 1. DCS REY PAT PHONE CALL DONE HISTORY OF PRESENT ILLNESS GENERAL: PERMISSION FROM PATIENT WAS RECEIVED TO DO TELEPHONE OFFICE VISIT. THE PATIENT WAS HAVING DIFFICULTY WITH THE ZOOM YAMILETH SO WE DECIDED TO DO THE VISIT OVER THE PHONE. 44-YEAR-OLD FEMALE PATIENT WITH A HISTORY OF CHRONIC LOW BACK AND MAINLY RIGHT LEG PAIN. THE PATIENT DESCRIBES THE PAIN ACHING, SHARP AND SHOOTING WITH A PAIN SCORE RANGING FROM 6-10/10 DEPENDING ON PHYSICAL ACTIVITY. THE PATIENT STATES THAT THE PAIN IS MOSTLY LOCATED IN THE BACK AND DOWN BOTH LEGS, RIGHT WORSE THAN LEFT. THE PATIENT STATES THAT SHE HAS HAD AN EPIDURAL STEROID INJECTION THAT DID NOT HELP AND IT GAVE HER SOME INCREASING PAIN. SHE STATES THAT SHE WAS UNABLE TO GET OUT OF BED FOR A FEW DAYS FOLLOWING THE INJECTION. THE PATIENT TRIED SOME TRIGGERS POINT INJECTIONS THAT HELPED BUT NOT [facility]. THE PATIENT WANTS TO MOVE FORWARD WITH THE DCS TRIAL. PATIENT DENIES UNEXPLAINABLE WEIGHT LOSS, FEVER, CHILLS, NEW CHANGES ON HER URINARY OR BOWEL CONTROL. FALL RISK SCREENING: SCREENING :TWO OR MORE FALLS WITHOUT INJURY IN THE PAST YEAR PT REPORTS SHE SOMETIMES LOSES HER BALANCE, "CAN'T FEEL HER FEET/LEGS" SO SHE FALLS FREQUENTLY. DENIES INJURY WITH FALLS OTHER THAN BUMPS AND BRUISES PAIN SCREENING: PATIENT HAS A COMPLAINT OF ACUTE OR CHRONIC PAIN :YES LOCATION OF PAIN:LOW BACK, LEG(S) INTENSITY OF PAIN (SCALE OF 1 TO 10):7 LAST MONTH 6-10 WHAT DOES YOUR PAIN FEEL LIKE:ACHING, SHARP, SHOOTING SHARP PAIN IN LOWER BACK, ACHING "PINS AND NEEDLES" IN UPPER LEGS, WITH SHARP SHOOTING PAINS DOWN HER LEGS. DURATION:CONSTANT, STEADY, INTERMITTENT PAIN IS INCREASED BY:ACTIVITIES, PROLONGED STANDING PAIN IS DECREASED BY: HEATING PAD HELPS SOMETIMES, CHANGING POSITIONS NURSING NOTE: -. PAIN CENTER INTAKE QUESTIONS: DO YOU HAVE A HISTORY OF MRSA? :NO DO YOU TAKE A BLOOD THINNERS? :NO DO YOU HAVE ANY BLEEDING DISORDERS? :NO ANY NEW NUMBNESS OR WEAKNESS IN YOUR LEGS OR ARMS? :NO ANY PACEMAKER,DEFIBRILLATOR, OR DORSAL COLUMN STIMULATOR? :NO DO YOU HAVE ANY RASHES OR OPEN SORES? :NO ARE YOU ALLERGIC TO IV DYE? :NO ARE YOU DIABETIC? :NO ANY NEW PROBLEMS WITH YOUR MEDICATIONS? :NO HAVE YOU RECEIVED A VACCINE IN THE PAST 30 DAYS? :NO DO YOU PLAN TO RECEIVE A VACCINE IN THE NEXT 21 DAYS? :NO DO YOU NEED ANY PRESCRIPTION? :NO DO YOU TAKE ANY IMMUNOSUPPRESSIVE MEDICATIONS? :NO IS THERE A CHANCE YOU COULD BE ? :NO ARE YOU BREAST FEEDING? :NO CURRENT MEDICATIONS TAKING REFRESH OPTIVE 0.5-0.9 % SOLUTION OPHTHALMIC TAKING CYMBALTA 60 MG CAPSULE DELAYED RELEASE PARTICLES 2 CAPSULES ORALLY BID TAKING QUETIAPINE FUMARATE 100 MG TABLET 2 TABLET ORALLY TAKES 800 MG IN PM TAKING QUETIAPINE FUMARATE 300 MG TABLET 2 TABLET AT BEDTIME ORALLY TAKES 800 MG IN PM ONCE A DAY TAKING PRAZOSIN HCL 2 MG CAPSULE 1 CAPSULE AT BEDTIME ORALLY ONCE A DAY TAKING KLONOPIN 0.5 MG TABLET 2 TABLET DAILY NEEDED ONCE A DAY TAKING PROPRANOLOL HCL 10 MG TABLET TAKE ONE TABLET BY MOUTH TWICE DAILY BOTTLE ORAL TAKING ROLLER WALKER - MISCELLANEOUS DIRECTED WITH WHEELS, SEAT AND BRAKE TAKING NYSTATIN [id number] UNIT/GM POWDER 1 NULL TO AFFECTED AREA EXTERNALLY TWICE A DAY TAKING VENTOLIN HFA 108 (90 BASE) MCG/ACT AEROSOL SOLUTION 2 PUFFS NEEDED INHALATION EVERY 4 HRS PRN TAKING TOPIRAMATE 100 MG TABLET 1 TABLET ORALLY ONCE DAILY AT NIGHT TAKING LEVOTHYROXINE SODIUM 25 MCG TABLET 1 TABLET IN THE MORNING ON AN EMPTY STOMACH ORALLY ONCE DAILY TAKING CYMBALTA 30 MG CAPSULE DELAYED RELEASE PARTICLES 1 CAPSULE ORALLY ONCE A DAY TAKING OXYBUTYNIN CHLORIDE 5 MG TABLET 1 TABLET ORALLY ONCE A DAY TAKING CETIRIZINE HCL 10 MG TABLET 1 TABLET ORALLY ONCE A DAY TAKING IBUPROFEN 800 MG TABLET 1 TABLET WITH FOOD OR MILK NEEDED ORALLY THREE TIMES A DAY PRN MEDICATION LIST REVIEWED AND RECONCILED WITH THE PATIENT PAST MEDICAL HISTORY GRAND MAL SEIZURES RT SHOULDER STRAIN- NCOG TOBACCO USE EKG PROLONGED QT INTERVAL PREOP APPENDECTOMY OTHERWISE NML- CARDIO EVALUATED- SEE NOTE. ETT 04/30 NEG ISCHEMIA ECHO - 04/30- NML SYST AND DIASTOLIC FUNCTION 11/27 NSR, RARE ISOLATED PAC. EEG 09/15/14- NO EPILEPTIFORM ACTIVITY FIBROMYALGIA (TIGGOR POINT INJECTIONS WITH DR. 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 MORAN IN APRIL 2019) MUFFLER MECHANIC: ORIANA RIVERA, ALLERGIES EFFEXOR: WILD MOOD CHANGES MELA TO BIPOLAR I - SIDE EFFECTS LATEX (FOR ALLERGY USE ONLY): RASH - ALLERGY METHOCARBAMOL: LOWERS SEIZURE THRESHOLD - SIDE EFFECTS ADHESIVE: HIVES - ALLERGY ENVIRONMENTAL (DOG, DANDER), TOMATOE: HIVES - ALLERGY CAT DANDER SURGICAL HISTORY OVARY ON CYST RUPTERED 1993 TUBAL LIGATION 2001 APPENDECTOMY 09/26/13 C-5, C-6, C-7 DISKECTOMY, OSTEOPHYTECTOMY 01/2015 FAMILY HISTORY FATHER: UNKNOWN 71 YRS, CAD, S/P CABG, PANCREATIC CA MOTHER: ALIVE 64 YRS, CEREBRAL ANEURYSM, THYROID DISEASE, DIAGNOSED WITH OTHER SPECIFIED CONDITIONS INFLUENCING HEALTH STATUS SIBLINGS: ALIVE, SISTER (1) - NOT MUCH INFORMATION BROTHER (1) - NARCISSISTIC PERSONALITY DISORDER HALF- SISTERS (1) - 1 WITH DEPRESSION, PTSD, ANXIETY, CERVICAL CA, SON(S): ALIVE, SONS (3) - 1 WITH RAD A CHILD 1 BROTHER(S) , 2 SISTER(S) - HEALTHY. 3 SON(S) - HEALTHY. MOM-HYPOTHYROIDISM, BRAIN ANEURYSM,PSYCHIATRIC ISSUESONE SISTER WITH EMBOLISM, NO KNOWN UROLOGICAL FAMILY HISTORY. SOCIAL HISTORY GENERAL: TOBACCO USE ARE YOU A:CURRENT SMOKER ARE YOU INTERESTED IN QUITTING?NOT READY TO QUIT COUNSELED THE PATIENT ON SMOKING EFFECTS, EDUCATION [id number]/16/2020 HOW MANY CIGARETTES A DAY DO YOU SMOKE?6-10 PATIENT COUNSELED ON THE DANGERS OF TOBACCO USE AND URGED TO QUIT:09/27/2019 SMOKING CESSATION INFORMATION GIVEN09/27/2019 LATEX QUESTIONNAIRE LATEX ALLERGY : HAVE YOU EVER DEVELOPED ANY TYPE OF REACTION AFTER HANDLING LATEX PRODUCTS SUCH RUBBER GLOVES, CONDOMS, DIAPHRAGMS, BALLOONS, SOCKS, OR UNDERWEAR?YES LATEX ALLERGY : HAVE YOU EVER DEVELOPED ANY TYPE OF REACTION DURING OR AFTER DENTAL APPOINTMENT, VAGINAL/RECTAL EXAMINATION, SURGICAL PROCEDURE, OR ANY OTHER EXPOSURE?YES DATE ASKED : 09/27/2019 LATEX RISK : HAVE YOU EVER HAD ANY DIFFICULTY BREATHING OR HIVES AFTER EATING OR HANDLING ANY FRUITS, OR VEGETABLES; SUCH KIWI, BANANAS, STONE FRUITS, OR CHESTNUTSYES LATEX RISK : DO YOU HAVE A PREVIOUS PERSONAL HISTORY OF MORE THAN NINE SURGERIES, SPINA BIFIDA, OR REPEATED CATHERIZATIONS? NO LATEX RISK : ARE YOU FREQUENTLY EXPOSED TO LATEX PRODUCTS IN YOUR OCCUPATION?NO LUNG CANCER SCREENING SMOKING STATUS:CURRENT SMOKER BMI CARE GOAL FOLLOW-UP ABOVE NORMAL BMI FOLLOW-UPLIFESTYLE EDUCATION REGARDING DIET ALCOHOL SCREENING DID YOU HAVE A DRINK CONTAINING ALCOHOL IN THE PAST YEAR?NO POINTS0 INTERPRETATIONNEGATIVE RECREATIONAL DRUG USE DRUG USE?YES HOW OFTEN AND HOW MUCH? SMOKES ONCE OR TWICE A WEEK FOR PAIN MANAGEMENT CAFFEINE CAFFEINE USE?YES 1 CUP PER DAY SEXUAL HX HAD SEX IN THE LAST 12 MONTHS (VAGINAL, ORAL, OR ANAL)?YES WITHMEN ONLY HAVE YOU EVER HAD AN STD?YES GC?YES CHLAMYDIA?YES HIV / HEP-C SCREENING HIV TEST OFFERED TO PATIENT:NO HEP-C TEST OFFERED TO PATIENT:NO QUAKER [id number] YARSANI LANGUAGE LANGUAGES SPOKEN:TAMAZIGHT EDUCATION LEVEL OF EDUCATION:HIGH SCHOOL LEARNING BARRIERS / SPECIAL NEEDS CHANGE FROM LAST VISIT?NO BARRIERS TO LEARNING?NO HEARING IMPAIRED?NO VISION IMPAIRED?YES :CORRECTIVE LENSES COGNITIVELY IMPAIRED?NO MUFFLER MECHANIC COMES WITH HER TO APPOINTMENTS READINESS TO LEARN?YES LEARNING PREFERENCES?NO LEARNING CAPABILITIES PRESENT?YES EMOTIONAL BARRIERS?NO SPECIAL DEVICES?NO NAVAL ENGINEER NEEDED?NO DOMESTIC VIOLENCE DO YOU FEEL SAFE IN YOUR ENVIRONMENT?YES OCCUPATION: DISABLED. DIET: REGULAR. EXERCISE: NO REGULAR EXERCISE. MARITAL STATUS: SINGLE. OTHERS AT HOME: , NONE. NEW PATIENT PAIN DIARY TODAY'S VISITNOTES PATIENT DESCRIBES PAIN :ACHING, HAVE IT ALL THE TIME, STABBING, SHOOTING FROM 0-10, WHAT LEVEL IS YOUR PAIN TODAY?7 PRECIPITATING FACTORS ACTIVITY ALLEVIATING FACTORS NOTHING IMPACT ON FUNCTION YES PAIN CLINIC PFS, CLERGY, PUBLIC HEALTH REFERRALS PFS REFERRAL NEEDED?NO CLERGY REFERRAL NEEDED?NO PUBLIC HEALTH REFERRAL NEEDED?NO WAS THE PROVIDER NOTIFIED OF ANY PERTINENT INFO?YES N/A HAS THE PATIENT BEEN EDUCATED REGARDING HIS/HER PLAN OF CARE?YES HAS THE PATIENT BEEN EDUCATED REGARDING PAIN, THE RISK FOR PAIN, THE IMPORTANCE OF EFFECTIVE PAIN MANAGEMENT, AND THE PAIN ASSESSMENT PROCESS?YES ADVANCE DIRECTIVE ADVANCE DIRECTIVE DISCUSSED WITH PATIENT:YES NO HCP, HAS THE PAPER WORK, DECLINES ASSISTANCE WITH FORM HOSPITALIZATION/MAJOR DIAGNOSTIC PROCEDURE [facility] 04/26/17-05/01/17 NECK SURGERY REVIEW OF SYSTEMS CONSTITUTIONAL: ANY RECENT FEVER NO . CHILLS NO . WEIGHT CHANGE OF UNKNOWN REASONS NO . GASTROENTEROLOGY: NEW UNEXPLAINABLE CHANGES IN BOWEL CONTROL NO . CONSTIPATION NO . GENITOURINARY: ANY NEW CHANGE IN BLADDER CONTROL? NO . NEUROLOGY: NEW ONSET DIZZINESS OR NEUROLOGICAL CHANGES NOT MENTIONED NO . NEW NUMBNESS OR PAIN PATTERNS NOT MENTIONED AND PERTINENT TO TODAY'S VISIT NO . CARDIOLOGY: NEW CHEST PRESSURE NO . NEW CHEST PAIN NO . RESPIRATORY: UNEXPLAINABLE COUGH NO . NEW SHORTNESS OF BREATH NO . EXAMINATION GENERAL EXAMINATION: THIS IS A TELEMEDICINE VISIT. THE PATIENT IS ALERT, ORIENTED TIMES THREE AND COOPERATIVE. PSYCHOLOGY EVALUATION DONE ON 09/01/2019 STATES THE PATIENT IS QUALIFIED TO CONTINUE WITH THE TRIAL BUT SHOULD CONTINUE WITH PSYCHOLOGICAL CARE. MRI OF THE LUMBAR SPINE PERFORMED 07/01/2019 BULGING DISC AT L4-L5 AND L5-S1. ASSESSMENTS INTERVERTEBRAL DISC DISORDERS WITH RADICULOPATHY, LUMBAR REGION - M51.16 (PRIMARY) TREATMENT INTERVERTEBRAL DISC DISORDERS WITH RADICULOPATHY, LUMBAR REGION CLINICAL NOTES: WE DISCUSSED SEVERAL ALTERNATIVES WITH MS. AVILEZ REGARDING HER TREATMENT OPTIONS AND CARE. THE PATIENT ORIGINALLY WANTED TO HAVE A DCS THROUGH [facility]; HOWEVER, WE DO NOT DO THEM HERE AT THIS HOSPITAL. THE PATIENT WOULD LIKE TO SPEAK WITH SOMEONE FROM [employer] ABOUT THE TECHNOLOGY AND TECHNIQUE FOR THE DCS TRIAL. I WOULD LIKE THE PATIENT TO FOLLOW UP WITH ME VIA TELEMEDICINE IN 2 WEEKS TO FURTHER DISCUSS THE DCS TRIAL. I WOULD LIKE TO PLAN FOR THE PATIENT TO HAVE THIS DONE IN . I WILL HAVE SOMEONE FROM [employer] CALL HER. ALSO, I HAVE TO REVIEW THE MRIS WITH THE RADIOLOGIST TO DISCUSS THE EPIDURAL SPACE. WE NEED TO DO THIS TRIAL BEFORE 12/08/2019 THAT IS WHEN HER AUTHORIZATION EXPIRES. THE PATIENT KNOWS TO CALL THE OFFICE IF SHE HAS ANY QUESTIONS OR CONCERNS. THE PATIENT UNDERSTANDS AND IS IN AGREEMENT WITH THE TREATMENT PLAN. THE TOTAL TIME FOR THE TELEPHONE VISIT WAS 21 MINUTES. I, SONDRA WELLINGTON, DOCUMENTED THE ABOVE INFORMATION ACTING A SCRIBE FOR DR. GIBBS. I HAVE REVIEWED THE ABOVE DOCUMENT, WRITTEN BY SONDRA WELLINGTON, ELECTRICIAN CHIEF, AND I VERIFY THAT IT IS ACCURATE . DISPOSITION & COMMUNICATION FOLLOW UP F/UP WITH DR. Hein VIA TELEMEDICINE NEXT WEEK (REASON: DCS TRIAL-NEEDS TO BE DONE BEFORE 12/08/2019) ELECTRONICALLY SIGNED BY DELTA GIBBS MD, MD ON 10/03/2019 AT 05:28 PM EDT DISCLAIMER : THIS IS A VISIT SUMMARY EXTRACTED FROM THE [employer] CHART. IT IS NOT A COPY OF THE [employer] PROGRESS NOTE. MTDD
== END ==
LOC: M PAIN 14:30
PROVIDERS: ATTEND Anesthesiology
DX: M51.16 Intervertebral disc disorders with radiculopathy, lumbar region (principal)

== ENCOUNTER 2019-10-17 09:28 | Inpatient (IN) | payer OTHER ==
[~2019-10-17 09:28] MED LIST changes: +LIDOCAINE 1% SDV 30ML VIAL As Ordered ONE; +LIDOCAINE 2% 100MG/5ML SDV (FOR ANES.) ONE; +MIDAZOLAM INJ 2MG/2ML VIAL (J2250 PER 1MG) ONE; +fentaNYL 100 MCG/2 ML INJECTION (J3010) ONE; +propofoL 500 MG/50 ML VIAL ONE
[2019-10-17] MEDS ORDERED: ceFAZolin 1GM VIAL (J0690 PER 500MG) As Ordered ONE ×3 (09:32→23:00)
[2019-10-17] MEDS ORDERED: ceFAZolin 1GM VIAL (J0690 PER 500MG) ONE ×3 (09:32→23:03)
[2019-10-17] MEDS ORDERED: LIDOCAINE 1% SDV 30ML VIAL As Ordered ONE (11:02)
[2019-10-17] MEDS ORDERED: PROPRANOLOL 10 MG TAB ONE (13:00)
[2019-10-17] MEDS ORDERED: PRAZOSIN 1 MG CAP ONE (13:00)
[2019-10-17] MEDS ORDERED: DULoxetine 30 MG CAP (CYMBALTA) ONE (14:31)
[2019-10-17] MEDS ORDERED: oxyBUTYnin 5 MG TAB As Ordered ONE (14:31)
[2019-10-17] MEDS ORDERED: NORCO, ANEXSIA 5/325MG TABLET (HYDROcodone/ACETAMINOPHEN) As Ordered ONE ×2 (14:31→23:00)
[2019-10-17] MEDS ORDERED: DULoxetine 30 MG CAP (CYMBALTA) As Ordered ONE (14:31)
[2019-10-17] MEDS ORDERED: oxyBUTYnin 5 MG TAB ONE (14:31)
[2019-10-17] MEDS ORDERED: NORCO, ANEXSIA 5/325MG TABLET (HYDROcodone/ACETAMINOPHEN) ONE ×2 (14:31→23:03)
[2019-10-17] MEDS ORDERED: TOPIRAMATE (TopAMAX) 100 MG TAB As Ordered ONE (23:00)
[2019-10-17] MEDS ORDERED: QUEtiapine FUMARATE 50 MG TAB As Ordered ONE (23:03)
[2019-10-17] MEDS ORDERED: TOPIRAMATE (TopAMAX) 100 MG TAB ONE (23:03)
[2019-10-17] MEDS ORDERED: QUEtiapine FUMARATE 50 MG TAB ONE (23:03)
[2019-10-18] MEDS ORDERED: LEVOTHYROXINE 25MCG TABLET (0.025MG) As Ordered ONE (08:20)
[2019-10-18] MEDS ORDERED: QUEtiapine FUMARATE 50 MG TAB ONE (08:20)
[2019-10-18] MEDS ORDERED: LEVOTHYROXINE 25MCG TABLET (0.025MG) ONE (08:20)
[2019-10-18] MEDS ORDERED: DULoxetine 30 MG CAP (CYMBALTA) As Ordered ONE (08:20)
[2019-10-18] MEDS ORDERED: oxyBUTYnin 5 MG TAB As Ordered ONE (08:20)
[2019-10-18] MEDS ORDERED: DULoxetine 30 MG CAP (CYMBALTA) ONE (08:20)
[2019-10-18] MEDS ORDERED: oxyBUTYnin 5 MG TAB ONE (08:20)
[2019-10-18] MEDS ORDERED: QUEtiapine FUMARATE 50 MG TAB As Ordered ONE (08:21)
[2019-10-18] MEDS ORDERED: NORCO, ANEXSIA 5/325MG TABLET (HYDROcodone/ACETAMINOPHEN) As Ordered ONE (10:56)
[2019-10-18] MEDS ORDERED: NORCO, ANEXSIA 5/325MG TABLET (HYDROcodone/ACETAMINOPHEN) ONE (10:56)
--- NOTE | 2019-12-15 09:06 | REP ---
FLUOROSCOPIC GUIDANCE FOR NEEDLE PLACEMENT The images were reviewed with Dr. Goetz. The portable C-arm was provided in the OR for Dr. Geiger for fluoroscopic guidance. Four intraoperative [id number] fluorospot films were obtained for lead placement verification for dorsal column stimulator. The images are on the PACS system and are available for review. 8 seconds of fluoroscopy time was utilized for this procedure. ED
== END 2019-10-18 09:35 | disposition home or self-care (01) | DRG 321 ==
LOC: M MS5PR 09:28
PROVIDERS: ADMIT Internal Medicine; ATTEND Internal Medicine
PROC: 00HV3MZ Insertion of Neurostimulator Lead into Spinal Cord, Percutaneous Approach (ICD-10-PCS; principal; 2019-10-16)
DX: M51.16 Intervertebral disc disorders with radiculopathy, lumbar region (principal); Z88.8 Allergy status to other drugs, medicaments and biological substances; Z91.040 Latex allergy status

== ENCOUNTER → 2019-12-01 | Outpatient (CLI) | payer OTHER ==
[~2019-12-01] MED LIST changes: -LIDOCAINE 1% SDV 30ML VIAL As Ordered ONE; -LIDOCAINE 2% 100MG/5ML SDV (FOR ANES.) ONE; -MIDAZOLAM INJ 2MG/2ML VIAL (J2250 PER 1MG) ONE; -fentaNYL 100 MCG/2 ML INJECTION (J3010) ONE; -propofoL 500 MG/50 ML VIAL ONE
== END ==
LOC: M PAIN 12:43
PROVIDERS: ATTEND Family Medicine
DX: M79.18 Myalgia, other site (principal)

== ENCOUNTER → 2019-12-09 | Outpatient (CLI) | payer OTHER | LOC: M LABSMTC 12:09 | PROVIDERS: ATTEND Anesthesiology | DX: Z11.59 Encounter for screening for other viral diseases (principal) | CPT/HCPCS: C9803; U0003 ==

== ENCOUNTER → 2019-12-14 | Outpatient (CLI) | payer OTHER ==
[~2019-12-14] MED LIST changes: +BUPIVACAINE HCL 0.25% 10ML VIAL As Ordered ONE; +BUPIVACAINE HCL 0.25% 30ML VIAL As Ordered ONE; +TRIAMCINOLONE ACETONIDE SUSP 40 MG/ML VIAL (J3301) As Ordered ONE; +diazePAM 5 MG TAB As Ordered ONE; +oxyCODONE 5MG TAB As Ordered ONE
--- NOTE | 2019-12-15 16:48 | ECWPNPC ---
PATIENT NAME: JOSEPH AVILEZ : 1975 GENDER: FEMALE VISIT DATE: 12/14/2019 DISCHARGE DATE: 12/14/19 1548 VISIT LOCKED DATE TIME: PHYSICIAN: DELTA GIBBS MD RESOURCE: DELTA GIBBS MD REASON FOR APPOINTMENT 1. BILATERAL NECK/SHOULDER TPI HISTORY OF PRESENT ILLNESS GENERAL: -. FALL RISK SCREENING: SCREENING :TWO OR MORE FALLS WITH INJURY IN THE PAST YEAR SEVERAL TMES-SOME WITH, SOME WITHOUT INJURY. PT STATES SHE SOMETIMES LOSES HER BALANCE, LEGS GIVE OUT OR SHE TRIPS OVER HER FEET. PAIN SCREENING: PATIENT HAS A COMPLAINT OF ACUTE OR CHRONIC PAIN :YES LOCATION OF PAIN:NECK, BOTH SHOULDERS INTENSITY OF PAIN (SCALE OF 1 TO 10):9 WHAT DOES YOUR PAIN FEEL LIKE:ACHING, BURNING, CONTINOUS, SHARP, TENDER, THROBBING, SORE, SHOOTING DURATION:CONTINOUS, CONSTANT, AWAKENS FROM SLEEP PAIN IS INCREASED BY:ACTIVITIES TURNING HEAD OR MOVEMENT OF HEAD, NECK AND SHOULDERS PAIN IS DECREASED BY:OTHERS HEAT AND REPOSITIONING NURSING NOTE: -. PAIN CENTER INTAKE QUESTIONS: DO YOU HAVE A HISTORY OF MRSA? :NO DO YOU TAKE A BLOOD THINNERS? :NO DO YOU HAVE ANY BLEEDING DISORDERS? :NO ANY NEW NUMBNESS OR WEAKNESS IN YOUR LEGS OR ARMS? :NO ANY PACEMAKER,DEFIBRILLATOR, OR DORSAL COLUMN STIMULATOR? :NO DO YOU HAVE ANY RASHES OR OPEN SORES? :NO ARE YOU ALLERGIC TO IV DYE? :NO ARE YOU DIABETIC? :NO ANY NEW PROBLEMS WITH YOUR MEDICATIONS? :NO HAVE YOU RECEIVED A VACCINE IN THE PAST 30 DAYS? :NO DO YOU PLAN TO RECEIVE A VACCINE IN THE NEXT 21 DAYS? :NO DO YOU TAKE ANY IMMUNOSUPPRESSIVE MEDICATIONS? :NO ANY HISTORY OF SEIZURES? :YES LAST SEIZURE WELL OVER A YEAR AGO ANY HISTORY OF CARDIAC ISSUES OR EVENTS? :NO DO YOU HAVE SLEEP APNEA? :NO ANY RECENT HEAD INJURY? :NO DO YOU HAVE ANY NEW INFECTIONS? :NO IS THERE A CHANCE YOU COULD BE ? :NO ARE YOU BREAST FEEDING? :NO WHEN DID YOU LAST EAT? : 12/12 2099 WHEN DID YOU LAST DRINK? : 12/13 1315 WHAT DID YOU LAST DRINK? : SMALL SIP OF WATER NAME OF PERSON DRIVING YOU HOME? : YELLOW CAB DO YOU HAVE ANY OTHER QUESTIONS OR CONCERNS? : NONE CURRENT MEDICATIONS TAKING REFRESH OPTIVE 0.5-0.9 % SOLUTION OPHTHALMIC , NOTES: 12/13 1129 TAKING CYMBALTA 60 MG CAPSULE DELAYED RELEASE PARTICLES 2 CAPSULES ORALLY BID, NOTES: 12/12 2029 TAKING QUETIAPINE FUMARATE 100 MG TABLET 2 TABLET ORALLY TAKES 800 MG IN PM, NOTES: 12/12 2029 TAKING QUETIAPINE FUMARATE 300 MG TABLET 2 TABLET AT BEDTIME ORALLY TAKES 800 MG IN PM ONCE A DAY, NOTES: 12/12 2029 TAKING PRAZOSIN HCL 2 MG CAPSULE 1 CAPSULE AT BEDTIME ORALLY ONCE A DAY, NOTES: 12/12 2029 TAKING KLONOPIN 0.5 MG TABLET 2 TABLET DAILY NEEDED ONCE A DAY, NOTES: PRN 1 TAB 12/12 1114 TAKING PROPRANOLOL HCL 10 MG TABLET TAKE ONE TABLET BY MOUTH TWICE DAILY BOTTLE ORAL , NOTES: 12/12 2029 TAKING ROLLER WALKER - MISCELLANEOUS DIRECTED WITH WHEELS, SEAT AND BRAKE TAKING NYSTATIN [id number] UNIT/GM POWDER 1 NULL TO AFFECTED AREA EXTERNALLY TWICE A DAY, NOTES: NONE RECENT TAKING VENTOLIN HFA 108 (90 BASE) MCG/ACT AEROSOL SOLUTION 2 PUFFS NEEDED INHALATION EVERY 4 HRS PRN, NOTES: 12/12 1799 TAKING TOPIRAMATE 100 MG TABLET 1 TABLET ORALLY ONCE DAILY AT NIGHT, NOTES: 12/12 2029 TAKING LEVOTHYROXINE SODIUM 25 MCG TABLET 1 TABLET IN THE MORNING ON AN EMPTY STOMACH ORALLY ONCE DAILY, NOTES: 12/12 2029 TAKING CYMBALTA 30 MG CAPSULE DELAYED RELEASE PARTICLES 1 CAPSULE ORALLY ONCE A DAY, NOTES: 12/12 2029 TAKING OXYBUTYNIN CHLORIDE 5 MG TABLET 1 TABLET ORALLY ONCE A DAY, NOTES: 12/12 2029 TAKING CETIRIZINE HCL 10 MG TABLET 1 TABLET ORALLY ONCE A DAY, NOTES: 12/12 2029 TAKING IBUPROFEN 800 MG TABLET 1 TABLET WITH FOOD OR MILK NEEDED ORALLY THREE TIMES A DAY PRN, NOTES: 12/11 MEDICATION LIST REVIEWED AND RECONCILED WITH THE PATIENT PAST MEDICAL HISTORY GRAND MAL SEIZURES RT SHOULDER STRAIN- NCOG TOBACCO USE EKG PROLONGED QT INTERVAL PREOP APPENDECTOMY OTHERWISE NML- CARDIO EVALUATED- SEE NOTE. ETT 04/30 NEG ISCHEMIA ECHO [place]- 04/30- NML SYST AND DIASTOLIC FUNCTION 11/27 NSR, RARE ISOLATED PAC. EEG 09/15/14- NO EPILEPTIFORM ACTIVITY FIBROMYALGIA (TIGGOR POINT INJECTIONS WITH DR. 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 MORAN IN APRIL 2019) AUTOMOTIVE CENTER MANAGER: ORIANA RIVERA, ALLERGIES EFFEXOR: WILD MOOD CHANGES MELA TO BIPOLAR I - SIDE EFFECTS LATEX (FOR ALLERGY USE ONLY): RASH - ALLERGY METHOCARBAMOL: LOWERS SEIZURE THRESHOLD - SIDE EFFECTS ADHESIVE: HIVES - ALLERGY ENVIRONMENTAL (DOG, DANDER), TOMATOE: HIVES - ALLERGY CAT DANDER: SINUS CONGESTION SURGICAL HISTORY OVARY ON CYST RUPTERED 1993 TUBAL LIGATION 2001 APPENDECTOMY 09/26/13 C-5, C-6, C-7 DISKECTOMY, OSTEOPHYTECTOMY 01/2015 FAMILY HISTORY FATHER: UNKNOWN 71 YRS, CAD, S/P CABG, PANCREATIC CA MOTHER: ALIVE 64 YRS, CEREBRAL ANEURYSM, THYROID DISEASE, DIAGNOSED WITH OTHER SPECIFIED CONDITIONS INFLUENCING HEALTH STATUS SIBLINGS: ALIVE, SISTER (1) - NOT MUCH INFORMATION BROTHER (1) - NARCISSISTIC PERSONALITY DISORDER HALF- SISTERS (1) - 1 WITH DEPRESSION, PTSD, ANXIETY, CERVICAL CA, SON(S): ALIVE, SONS (3) - 1 WITH RAD A CHILD 1 BROTHER(S) , 2 SISTER(S) - HEALTHY. 3 SON(S) - HEALTHY. MOM-HYPOTHYROIDISM, BRAIN ANEURYSM,PSYCHIATRIC ISSUESONE SISTER WITH EMBOLISM, NO KNOWN UROLOGICAL FAMILY HISTORY. SOCIAL HISTORY GENERAL: TOBACCO USE ARE YOU A:CURRENT SMOKER ARE YOU INTERESTED IN QUITTING?NOT READY TO QUIT COUNSELED THE PATIENT ON SMOKING EFFECTS, EDUCATION [id number]/16/2020 HOW MANY CIGARETTES A DAY DO YOU SMOKE?6-10 PATIENT COUNSELED ON THE DANGERS OF TOBACCO USE AND URGED TO QUIT:12/14/2019 SMOKING CESSATION INFORMATION GIVEN09/27/2019 LATEX QUESTIONNAIRE LATEX ALLERGY : HAVE YOU EVER DEVELOPED ANY TYPE OF REACTION AFTER HANDLING LATEX PRODUCTS SUCH RUBBER GLOVES, CONDOMS, DIAPHRAGMS, BALLOONS, SOCKS, OR UNDERWEAR?YES KNOWN LATEX ALLERGY LATEX ALLERGY : HAVE YOU EVER DEVELOPED ANY TYPE OF REACTION DURING OR AFTER DENTAL APPOINTMENT, VAGINAL/RECTAL EXAMINATION, SURGICAL PROCEDURE, OR ANY OTHER EXPOSURE?YES LATEX RISK : HAVE YOU EVER HAD ANY DIFFICULTY BREATHING OR HIVES AFTER EATING OR HANDLING ANY FRUITS, OR VEGETABLES; SUCH KIWI, BANANAS, STONE FRUITS, OR CHESTNUTSYES LATEX RISK : DO YOU HAVE A PREVIOUS PERSONAL HISTORY OF MORE THAN NINE SURGERIES, SPINA BIFIDA, OR REPEATED CATHERIZATIONS? NO LATEX RISK : ARE YOU FREQUENTLY EXPOSED TO LATEX PRODUCTS IN YOUR OCCUPATION?NO DATE ASKED : 12/14/2019 LUNG CANCER SCREENING SMOKING STATUS:CURRENT SMOKER BMI CARE GOAL FOLLOW-UP ABOVE NORMAL BMI FOLLOW-UPLIFESTYLE EDUCATION REGARDING DIET ALCOHOL SCREENING DID YOU HAVE A DRINK CONTAINING ALCOHOL IN THE PAST YEAR?NO POINTS0 INTERPRETATIONNEGATIVE RECREATIONAL DRUG USE DRUG USE?YES HOW OFTEN AND HOW MUCH? SMOKES ONCE OR TWICE A WEEK FOR PAIN MANAGEMENT CAFFEINE CAFFEINE USE?YES 1 CUP PER DAY SEXUAL HX HAD SEX IN THE LAST 12 MONTHS (VAGINAL, ORAL, OR ANAL)?YES WITHMEN ONLY HAVE YOU EVER HAD AN STD?YES GC?YES CHLAMYDIA?YES HIV / HEP-C SCREENING HIV TEST OFFERED TO PATIENT:NO HEP-C TEST OFFERED TO PATIENT:NO NONDENOMINATIONAL [id number] TENRIISM LANGUAGE LANGUAGES SPOKEN:NICARAGUAN EDUCATION LEVEL OF EDUCATION:HIGH SCHOOL LEARNING BARRIERS / SPECIAL NEEDS CHANGE FROM LAST VISIT?NO BARRIERS TO LEARNING?NO HEARING IMPAIRED?NO VISION IMPAIRED?YES :CORRECTIVE LENSES COGNITIVELY IMPAIRED?NO AUTOMOTIVE CENTER MANAGER COMES WITH HER TO APPOINTMENTS READINESS TO LEARN?YES LEARNING PREFERENCES?NO LEARNING CAPABILITIES PRESENT?YES EMOTIONAL BARRIERS?NO SPECIAL DEVICES?NO AUTO BATTERY BUILDER NEEDED?NO DOMESTIC VIOLENCE DO YOU FEEL SAFE IN YOUR ENVIRONMENT?YES OCCUPATION: DISABLED. DIET: REGULAR. EXERCISE: NO REGULAR EXERCISE. MARITAL STATUS: SINGLE. OTHERS AT HOME: , NONE. PAIN CLINIC PFS, CLERGY, PUBLIC HEALTH REFERRALS PFS REFERRAL NEEDED?NO CLERGY REFERRAL NEEDED?NO PUBLIC HEALTH REFERRAL NEEDED?NO HAS THE PATIENT BEEN EDUCATED REGARDING HIS/HER PLAN OF CARE?YES HAS THE PATIENT BEEN EDUCATED REGARDING PAIN, THE RISK FOR PAIN, THE IMPORTANCE OF EFFECTIVE PAIN MANAGEMENT, AND THE PAIN ASSESSMENT PROCESS?YES ADVANCE DIRECTIVE ADVANCE DIRECTIVE DISCUSSED WITH PATIENT:YES 12/14/2019 PT STATES SHE DOES NOT HAVE ANY ADVANCED DIRECTIES, SHE HAS THE PAPER WORK ONN HCP BUT HAS NOT COMPLETED THEM OF THIS DATE. ASSISTANCE OFFERED IN COMPLETING FORM IF NEEDED. HOSPITALIZATION/MAJOR DIAGNOSTIC PROCEDURE [facility] 04/26[facility]17-05/01/17 NECK SURGERY VITAL SIGNS WT 245.4 LBS, HT 65 IN, BMI 40.83 INDEX, BP 106/64 MM HG, HR 77 /MIN, RR 18 /MIN, TEMP 97.4 F, OXYGEN SAT % 97%, NA INITIALS AW 1402, REVIEWED BY: AD. ASSESSMENTS MYALGIA, OTHER SITE - M79.18 (PRIMARY) PROCEDURES PN TRIGGER POINT INJECTION WITH STEROIDS PRE PROCEDURE DIAGNOSIS 1. MYALGIA 2. PAIN AT BILATERAL NECK AREA AND BILATERAL SHOULDER AREA POST PROCEDURE DIAGNOSIS 1. MYALGIA 2. PAIN AT BILATERAL NECK AREA AND BILATERAL SHOULDER AREA PROCEDURE TRIGGER POINT INJECTION AT BILATERAL NECK AREA AND BILATERAL SHOULDER AREA SURGEON DR. DELTA GIBBS GUIDE CRUISE NONE ANESTHESIA LOCAL PRE PROCEDURE NOTE THE PATIENT HAS A HISTORY OF CHRONIC PAIN AT THE RIGHT AND LEFT NECK AREA AND RIGHT AND LEFT SHOULDER AREA. I EVALUATED THE PATIENT AND REVIEWED THE CHART. THERE IS EVIDENCE OF BANDS OF TISSUE WITH RESTRICTION OF MOVEMENT AND PRESENCE OF TRIGGER POINT AT THE RIGHT AND LEFT NECK AREA AND RIGHT AND LEFT SHOULDER AREA. I WENT OVER THE RISKS, ALTERNATIVES, AND BENEFITS ASSOCIATED WITH THIS PROCEDURE. THE PATIENT WOULD LIKE TO PROCEED AND GIVE CONSENT TO PERFORMED THE PROCEDURE. THE PATIENT DENIES UNEXPLAINABLE WEIGHT LOSS, FEVER, CHILLS, OR NEW CHANGES IN URINARY OR BOWEL CONTROL. THE PATIENT IS COVID-19 NEGATIVE DESCRIPTION OF PROCEDURE THE PATIENT WAS BROUGHT TO THE PROCEDURE ROOM AND PLACED IN THE SITTING POSITION. THE AREA WAS CLEANED WITH ALCOHOL. THE PROCEDURE WAS DONE USING ASEPTIC STERILE TECHNIQUE. A TIMEOUT WAS PERFORMED WHERE LATERALITY AND THE SITE OF THE PROCEDURE WERE CHECKED AND CONFIRMED WITH EVERYONE IN THE ROOM. USING A 25-GAUGE NEEDLE, TRIGGER POINTS WERE INJECTED AT THE RIGHT AND LEFT NECK AREA AND RIGHT AND LEFT SHOULDER AREA WITH A TOTAL OF 40 ML OF BUPIVACAINE 0.25% AND KENALOG 40 MG. THE MEDICATIONS WERE VERIFIED WITH THE NURSE. THERE WAS NO EVIDENCE OF BLOOD OR PARESTHESIA DURING THE PROCEDURE. THE PATIENT WAS SENT TO THE RECOVERY ROOM. THE PATIENT WAS MOVING THE EXTREMITIES AND DOING WELL. THERE WERE NO COMPLICATIONS DURING THE PROCEDURE. ESTIMATED BLOOD LOSS WAS LESS THAN 5 ML POST PROCEDURE NOTE THE PROCEDURE DONE WAS DISCUSSED WITH THE PATIENT. THE PATIENT WILL BE SEEN IN A FOLLOW UP IN THE NEXT FEW WEEKS. I AM LOOKING FOR LONG LASTING PAIN RELIEF FOR THE PATIENT WITH THIS INTERVENTION. INSTRUCTIONS WERE GIVEN, QUESTIONS WERE ANSWERED, AND THE PATIENT EXPRESSED UNDERSTANDING AND AGREES WITH THE PLAN. I, SONDRA WELLINGTON, DOCUMENTED THE ABOVE INFORMATION ACTING A SCRIBE FOR DR. GIBBS. I HAVE REVIEWED THE ABOVE DOCUMENT, WRITTEN BY SONDRA WELLINGTON, ADJUNCT FACULTY, AND I VERIFY THAT IT IS ACCURATE PROCEDURE CODES 41059 INJECT TRIGGER POINTS 3/> DISPOSITION & COMMUNICATION FOLLOW UP FOLLOW UP WITH SHELL ASSEMBLER (REASON: POST TPI BILATERAL SHOULDER AND NECK) ELECTRONICALLY SIGNED BY DELTA GIBBS MD, MD ON 12/15/2019 AT 04:39 PM EDT DISCLAIMER : THIS IS A VISIT SUMMARY EXTRACTED FROM THE [employer] CHART. IT IS NOT A COPY OF THE [employer] PROGRESS NOTE. ED
== END ==
LOC: M PAIN 14:00
PROVIDERS: ATTEND Anesthesiology
DX: M79.18 Myalgia, other site (principal); E03.9 Hypothyroidism, unspecified; F17.210 Nicotine dependence, cigarettes, uncomplicated; Z88.8 Allergy status to other drugs, medicaments and biological substances; Z91.040 Latex allergy status; Z91.09 Other allergy status, other than to drugs and biological substances; E66.01 Morbid (severe) obesity due to excess calories; Z68.41 Body mass index [BMI] 40.0-44.9, adult; Z79.899 Other long term (current) drug therapy
CPT/HCPCS: 20553; J3301

== ENCOUNTER → 2020-01-19 | Outpatient (CLI) | payer OTHER ==
[~2020-01-19] MED LIST changes: -BUPIVACAINE HCL 0.25% 10ML VIAL As Ordered ONE; -BUPIVACAINE HCL 0.25% 30ML VIAL As Ordered ONE; -TRIAMCINOLONE ACETONIDE SUSP 40 MG/ML VIAL (J3301) As Ordered ONE; -diazePAM 5 MG TAB As Ordered ONE; -oxyCODONE 5MG TAB As Ordered ONE
--- NOTE | 2020-01-24 02:22 | ECWPNPC ---
PATIENT NAME: OJSEPH AVILEZ : 1975 GENDER: FEMALE VISIT DATE: 01/19/2020 DISCHARGE DATE: 01/19/20 1439 VISIT LOCKED DATE TIME: PHYSICIAN: JOANA MORAN RESOURCE: JOANA MORAN REASON FOR APPOINTMENT 1. POST TPI BILAT NECK/SHOULDERS HISTORY OF PRESENT ILLNESS GENERAL: 44-YEAR-OLD FEMALE IN FOR POST TPI FOLLOW-UP. PATIENT FEELS THE PROCEDURE WAS SUCCESSFUL OVERALL RATING HER PAIN PREPROCEDURE AT A 9 OUT OF 10 AND POSTPROCEDURE AT A 78 OUT OF 10X5 WEEKS. SHE ADMITS TO STILL AWAITING CONTACT FROM THE SURGEON'S OFFICE TO SCHEDULE HER DCS IMPLANT. FALL RISK SCREENING: SCREENING :TWO OR MORE FALLS WITHOUT INJURY IN THE PAST YEAR PATIENT REPORTS MULTIPLE FALLS RESULTING IN LACERATIONS, BRUISING AND OTHER INJURIES. PATIENT DENIES SEEKING ANY MEDICAL ATTENTION. PAIN SCREENING: PATIENT HAS A COMPLAINT OF ACUTE OR CHRONIC PAIN :YES LOCATION OF PAIN: LOW BACK, GENERALIZED INTENSITY OF PAIN (SCALE OF 1 TO 10):8 WHAT DOES YOUR PAIN FEEL LIKE:ACHING, BURNING "DEEP DOWN SHARP STABBING" DURATION:CONTINOUS, AWAKENS FROM SLEEP PAIN IS INCREASED BY:ACTIVITIES, PROLONGED STANDING PLAN/GOALS/TREATMENT/INTERVENTION/FOLLOW UP:SEE PLAN NURSING NOTE: -. PAIN CENTER INTAKE QUESTIONS: DO YOU HAVE A HISTORY OF MRSA? :NO DO YOU TAKE A BLOOD THINNERS? :NO DO YOU HAVE ANY BLEEDING DISORDERS? :NO ANY NEW NUMBNESS OR WEAKNESS IN YOUR LEGS OR ARMS? :NO ANY PACEMAKER,DEFIBRILLATOR, OR DORSAL COLUMN STIMULATOR? :NO DO YOU HAVE ANY RASHES OR OPEN SORES? :NO ARE YOU ALLERGIC TO IV DYE? :NO ARE YOU DIABETIC? :NO ANY NEW PROBLEMS WITH YOUR MEDICATIONS? :NO HAVE YOU RECEIVED A VACCINE IN THE PAST 30 DAYS? :NO DO YOU PLAN TO RECEIVE A VACCINE IN THE NEXT 21 DAYS? :NO DO YOU NEED ANY PRESCRIPTION? :NO DO YOU TAKE ANY IMMUNOSUPPRESSIVE MEDICATIONS? :NO IS THERE A CHANCE YOU COULD BE ? :NO ARE YOU BREAST FEEDING? :NO CURRENT MEDICATIONS TAKING REFRESH OPTIVE 0.5-0.9 % SOLUTION OPHTHALMIC , NOTES: 12/13 113 TAKING CYMBALTA 60 MG CAPSULE DELAYED RELEASE PARTICLES 2 CAPSULES ORALLY BID, NOTES: 12/12 2030 TAKING QUETIAPINE FUMARATE 100 MG TABLET 2 TABLET ORALLY TAKES 800 MG IN PM, NOTES: 12/12 2029 TAKING QUETIAPINE FUMARATE 300 MG TABLET 2 TABLET AT BEDTIME ORALLY TAKES 800 MG IN PM ONCE A DAY, NOTES: 12/12 2029 TAKING PRAZOSIN HCL 2 MG CAPSULE 1 CAPSULE AT BEDTIME ORALLY ONCE A DAY, NOTES: 12/12 2029 TAKING KLONOPIN 0.5 MG TABLET 2 TABLET DAILY NEEDED ONCE A DAY, NOTES: PRN 1 TAB 12/12 1114 TAKING PROPRANOLOL HCL 10 MG TABLET TAKE ONE TABLET BY MOUTH TWICE DAILY BOTTLE ORAL , NOTES: 12/12 2029 TAKING ROLLER WALKER - MISCELLANEOUS DIRECTED WITH WHEELS, SEAT AND BRAKE TAKING NYSTATIN [id number] UNIT/GM POWDER 1 NULL TO AFFECTED AREA EXTERNALLY TWICE A DAY, NOTES: NONE RECENT TAKING VENTOLIN HFA 108 (90 BASE) MCG/ACT AEROSOL SOLUTION 2 PUFFS NEEDED INHALATION EVERY 4 HRS PRN, NOTES: 12/12 1799 TAKING TOPIRAMATE 100 MG TABLET 1 TABLET ORALLY ONCE DAILY AT NIGHT, NOTES: 12/12 2029 TAKING CETIRIZINE HCL 10 MG TABLET 1 TABLET ORALLY ONCE A DAY, NOTES: 12/12 2029 TAKING IBUPROFEN 800 MG TABLET 1 TABLET WITH FOOD OR MILK NEEDED ORALLY THREE TIMES A DAY PRN, NOTES: 12/11 TAKING TOPIRAMATE 100 MG TABLET TAKE ONE TABLET BY MOUTH @5PM TAKING LEVOTHYROXINE SODIUM 25 MCG TABLET TAKE ONE TABLET BY MOUTH @8AM TAKING OXYBUTYNIN CHLORIDE 5 MG TABLET 1 TABLET ORALLY ONCE A DAY MEDICATION LIST REVIEWED AND RECONCILED WITH THE PATIENT PAST MEDICAL HISTORY GRAND MAL SEIZURES RT SHOULDER STRAIN- NCOG TOBACCO USE EKG PROLONGED QT INTERVAL PREOP APPENDECTOMY OTHERWISE NML- CARDIO EVALUATED- SEE NOTE. ETT [facility] 04/30 NEG ISCHEMIA ECHO [facility]- 04/30- NML SYST AND DIASTOLIC FUNCTION 11/27 NSR, RARE ISOLATED PAC. EEG 09/15/14- NO EPILEPTIFORM ACTIVITY FIBROMYALGIA (TIGGOR POINT INJECTIONS WITH DR. 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 MORAN IN APRIL 2019) CIVIL SERVICE CLERK: ORIANA RIVERA, ALLERGIES EFFEXOR: WILD MOOD CHANGES MELA TO BIPOLAR I - SIDE EFFECTS LATEX (FOR ALLERGY USE ONLY): RASH - ALLERGY METHOCARBAMOL: LOWERS SEIZURE THRESHOLD - SIDE EFFECTS ADHESIVE: HIVES - ALLERGY ENVIRONMENTAL (DOG, DANDER), TOMATOE: HIVES - ALLERGY CAT DANDER: SINUS CONGESTION SURGICAL HISTORY OVARY ON CYST RUPTERED 1993 TUBAL LIGATION 2001 APPENDECTOMY 09/26/13 C-5, C-6, C-7 DISKECTOMY, OSTEOPHYTECTOMY 01/2015 FAMILY HISTORY FATHER: UNKNOWN 71 YRS, CAD, S/P CABG, PANCREATIC CA MOTHER: ALIVE 64 YRS, CEREBRAL ANEURYSM, THYROID DISEASE, DIAGNOSED WITH OTHER SPECIFIED CONDITIONS INFLUENCING HEALTH STATUS SIBLINGS: ALIVE, SISTER (1) - NOT MUCH INFORMATION BROTHER (1) - NARCISSISTIC PERSONALITY DISORDER HALF- SISTERS (1) - 1 WITH DEPRESSION, PTSD, ANXIETY, CERVICAL CA, SON(S): ALIVE, SONS (3) - 1 WITH RAD A CHILD 1 BROTHER(S) , 2 SISTER(S) - HEALTHY. 3 SON(S) - HEALTHY. MOM-HYPOTHYROIDISM, BRAIN ANEURYSM,PSYCHIATRIC ISSUESONE SISTER WITH EMBOLISM, NO KNOWN UROLOGICAL FAMILY HISTORY. SOCIAL HISTORY GENERAL: TOBACCO USE ARE YOU A:CURRENT SMOKER ARE YOU INTERESTED IN QUITTING?NOT READY TO QUIT COUNSELED THE PATIENT ON SMOKING EFFECTS, EDUCATION KUTASILH29/05/2020 HOW MANY CIGARETTES A DAY DO YOU SMOKE?6-10 PATIENT COUNSELED ON THE DANGERS OF TOBACCO USE AND URGED TO QUIT:01/19/2020 SMOKING CESSATION INFORMATION GIVEN01/19/2020 LATEX QUESTIONNAIRE LATEX ALLERGY : HAVE YOU EVER DEVELOPED ANY TYPE OF REACTION AFTER HANDLING LATEX PRODUCTS SUCH RUBBER GLOVES, CONDOMS, DIAPHRAGMS, BALLOONS, SOCKS, OR UNDERWEAR?YES KNOWN LATEX ALLERGY LATEX ALLERGY : HAVE YOU EVER DEVELOPED ANY TYPE OF REACTION DURING OR AFTER DENTAL APPOINTMENT, VAGINAL/RECTAL EXAMINATION, SURGICAL PROCEDURE, OR ANY OTHER EXPOSURE?YES LATEX RISK : HAVE YOU EVER HAD ANY DIFFICULTY BREATHING OR HIVES AFTER EATING OR HANDLING ANY FRUITS, OR VEGETABLES; SUCH KIWI, BANANAS, STONE FRUITS, OR CHESTNUTSYES LATEX RISK : DO YOU HAVE A PREVIOUS PERSONAL HISTORY OF MORE THAN NINE SURGERIES, SPINA BIFIDA, OR REPEATED CATHERIZATIONS? NO LATEX RISK : ARE YOU FREQUENTLY EXPOSED TO LATEX PRODUCTS IN YOUR OCCUPATION?NO DATE ASKED : 01/19/2020 LUNG CANCER SCREENING SMOKING STATUS:CURRENT SMOKER BMI CARE GOAL FOLLOW-UP ABOVE NORMAL BMI FOLLOW-UPLIFESTYLE EDUCATION REGARDING DIET ALCOHOL SCREENING DID YOU HAVE A DRINK CONTAINING ALCOHOL IN THE PAST YEAR?NO POINTS0 INTERPRETATIONNEGATIVE RECREATIONAL DRUG USE DRUG USE?YES HOW OFTEN AND HOW MUCH? SMOKES ONCE OR TWICE A WEEK FOR PAIN MANAGEMENT CAFFEINE CAFFEINE USE?YES 1 CUP PER DAY SEXUAL HX HAD SEX IN THE LAST 12 MONTHS (VAGINAL, ORAL, OR ANAL)?YES WITHMEN ONLY HAVE YOU EVER HAD AN STD?YES GC?YES CHLAMYDIA?YES HIV / HEP-C SCREENING HIV TEST OFFERED TO PATIENT:NO HEP-C TEST OFFERED TO PATIENT:NO SYNAGOGUE [id number] CHRISTIANITY LANGUAGE LANGUAGES SPOKEN:MONEGASQUE EDUCATION LEVEL OF EDUCATION:HIGH SCHOOL LEARNING BARRIERS / SPECIAL NEEDS CHANGE FROM LAST VISIT?NO BARRIERS TO LEARNING?NO HEARING IMPAIRED?NO VISION IMPAIRED?YES COGNITIVELY IMPAIRED?NO CIVIL SERVICE CLERK COMES WITH HER TO APPOINTMENTS :CORRECTIVE LENSES READINESS TO LEARN?YES LEARNING PREFERENCES?NO LEARNING CAPABILITIES PRESENT?YES EMOTIONAL BARRIERS?NO SPECIAL DEVICES?NO COIL TESTER NEEDED?NO DOMESTIC VIOLENCE DO YOU FEEL SAFE IN YOUR ENVIRONMENT?YES OCCUPATION: DISABLED. DIET: REGULAR. EXERCISE: NO REGULAR EXERCISE. MARITAL STATUS: SINGLE. OTHERS AT HOME: NONE. PAIN CLINIC PFS, CLERGY, PUBLIC HEALTH REFERRALS PFS REFERRAL NEEDED?NO CLERGY REFERRAL NEEDED?NO PUBLIC HEALTH REFERRAL NEEDED?NO HAS THE PATIENT BEEN EDUCATED REGARDING HIS/HER PLAN OF CARE?YES HAS THE PATIENT BEEN EDUCATED REGARDING PAIN, THE RISK FOR PAIN, THE IMPORTANCE OF EFFECTIVE PAIN MANAGEMENT, AND THE PAIN ASSESSMENT PROCESS?YES ADVANCE DIRECTIVE ADVANCE DIRECTIVE DISCUSSED WITH PATIENT:NO PT STATES SHE DOES NOT HAVE ANY ADVANCED DIRECTIES, SHE HAS THE PAPER WORK ON HCP BUT HAS NOT COMPLETED THEM OF THIS DATE. ASSISTANCE OFFERED IN COMPLETING FORM IF NEEDED. HOSPITALIZATION/MAJOR DIAGNOSTIC PROCEDURE [facility] 04/26/17-05/01/17 NECK SURGERY REVIEW OF SYSTEMS CONSTITUTIONAL: ANY RECENT FEVER NO . CHILLS NO . WEIGHT CHANGE OF UNKNOWN REASONS NO . GASTROENTEROLOGY: NEW UNEXPLAINABLE CHANGES IN BOWEL CONTROL NO . CONSTIPATION NO . GENITOURINARY: ANY NEW CHANGE IN BLADDER CONTROL? NO . NEUROLOGY: NEW ONSET DIZZINESS OR NEUROLOGICAL CHANGES NOT MENTIONED NO . NEW NUMBNESS OR PAIN PATTERNS NOT MENTIONED AND PERTINENT TO TODAY'S VISIT NO . CARDIOLOGY: NEW CHEST PRESSURE NO . NEW CHEST PAIN NO . RESPIRATORY: UNEXPLAINABLE COUGH NO . NEW SHORTNESS OF BREATH NO . VITAL SIGNS WT 241.8 LBS, HT 65 IN, BMI 40.23 INDEX, BP 107/63 MM HG, HR 103 /MIN, RR 18 /MIN, TEMP 97.2 F, OXYGEN SAT % 95%, SAFE IN ENV? (Y/N) YES, NA INITIALS AW 1422, REVIEWED BY: ALON MAHAJAN RN BSN. EXAMINATION GENERAL EXAMINATION: GENERALNO ACUTE DISTRESS, WELL NOURISHED AND HYDRATED. PSYCHAPPROPRIATE MOOD AND AFFECT . LUNGS:CLEAR TO AUSCULTATION BILATERALLY, NO WHEEZES, RHONCHI, RALES. HEART:NO MURMURS, REGULAR RATE AND RHYTHM. ASSESSMENTS OTHER CHRONIC POSTPROCEDURAL PAIN - G89.28 (PRIMARY) MYALGIA, OTHER SITE - M79.18 TREATMENT OTHER CHRONIC POSTPROCEDURAL PAIN PAIN PROCEDURE LOGDATE OF PROCEDURE12/14/19PROCEDURE:TRIGGER POINT INJECTION BILAT NECK AND SHOULDERRESULT:PRE-10 POST 7-10/23 X 5 WEEKS NOTES: 44-YEAR-OLD FEMALE IN FOR POST TPI FOLLOW-UP. GIVEN PRESENTING SYMPTOMS RECOMMEND FOLLOW-UP IN 2 MONTHS. PATIENT HAS EXPRESSED UNDERSTANDING OF AND WAS IN AGREEMENT WITH TREATMENT PLAN. GIVEN TIME TO ASK QUESTIONS AND EXPRESS CONCERNS. PROCEDURE CODES FA211 ESTABILISHED PATIENT [facility] CHARGE DISPOSITION & COMMUNICATION FOLLOW UP 2 MONTHS (REASON: BACK PAIN) ELECTRONICALLY SIGNED BY JENNIFER WALDRON ON 01/23/2020 AT 09:40 AM EST DISCLAIMER : THIS IS A VISIT SUMMARY EXTRACTED FROM THE [employer] CHART. IT IS NOT A COPY OF THE [employer] PROGRESS NOTE. ED
== END ==
LOC: M PAIN 14:15
PROVIDERS: ATTEND Family Medicine
DX: G89.28 Other chronic postprocedural pain (principal); M79.18 Myalgia, other site; F17.210 Nicotine dependence, cigarettes, uncomplicated; M79.7 Fibromyalgia; E03.9 Hypothyroidism, unspecified; K58.9 Irritable bowel syndrome, unspecified; Z79.899 Other long term (current) drug therapy; J30.81 Allergic rhinitis due to animal (cat) (dog) hair and dander; Z91.040 Latex allergy status; Z91.048 Other nonmedicinal substance allergy status; Z88.8 Allergy status to other drugs, medicaments and biological substances

== ENCOUNTER → 2020-02-24 | Outpatient (CLI) | payer OTHER ==
--- NOTE | 2020-02-24 11:28 | REP ---
INDICATION: S/P DORSAL COLOMUN STIM W/ PINKY LEG EDEMA ? DVT. COMPARISON: None. TECHNIQUE: Bilateral lower extremity duplex venous ultrasound. FINDINGS: The deep veins are anechoic and fully compressible from the groin to the popliteal fossa in the left and right lower extremity. Color flow imaging is homogeneous. Spectral Doppler interrogation demonstrates intact respiratory variation in flow and normal manual augmentation of flow. There is no evidence of deep vein thrombosis. IMPRESSION: Negative bilateral lower extremity duplex venous ultrasound. No evidence of deep vein thrombosis. <Electronically signed by Manas Goetz > 02/24/20 1125
== END ==
LOC: M RAD 10:46
PROVIDERS: ATTEND Physician Assistant Medical
DX: M79.89 Other specified soft tissue disorders (principal); R22.43 Localized swelling, mass and lump, lower limb, bilateral

== ENCOUNTER → 2020-04-11 | Outpatient (CLI) | payer OTHER ==
[~2020-04-11] MED LIST changes: +GABA-282; +GABA-282 PO; -GABA-843; -GABA-843 PO; +METH-1165 PO; -METH750T2 PO; -QUET1TAB10 PO; -QUET1TAB7 PO; +QUET25TA3 PO; +QUET300T2 PO
--- NOTE | 2020-04-13 07:44 | ECWPNPC ---
PATIENT NAME: JOSEPH AVILEZ : 1975 GENDER: FEMALE VISIT DATE: 04/11/2020 DISCHARGE DATE: 04/11/20 1458 VISIT LOCKED DATE TIME: PHYSICIAN: JOANA MORAN RESOURCE: JOANA MORAN REASON FOR APPOINTMENT 1. BACK PAIN HISTORY OF PRESENT ILLNESS DEPRESSION SCREENIN-YEAR-OLD FEMALE IN FOR CHRONIC PAIN FOLLOW-UP. SHE RATES HER PAIN CURRENTLY AT AN 8 OUT OF 10 AND DESCRIBES IT ACHING, STABBING, AND SHOOTING. PATIENT HAS HAD TRIGGER POINT INJECTIONS IN THE PAST WITH GOOD RELIEF AND WE WILL DISCUSS REPEAT PROCEDURES TODAY. PHQ-2 (2015 EDITION) LITTLE INTEREST OR PLEASURE IN DOING THINGS?NOT AT ALL FEELING DOWN, DEPRESSED, OR HOPELESS?NOT AT ALL TOTAL SCORE0 GENERAL: -. FALL RISK SCREENING: SCREENING :TWO OR MORE FALLS WITHOUT INJURY IN THE PAST YEAR PAIN SCREENING: PATIENT HAS A COMPLAINT OF ACUTE OR CHRONIC PAIN :YES LOCATION OF PAIN:UPPER BACK INTENSITY OF PAIN (SCALE OF 1 TO 10):8 WHAT DOES YOUR PAIN FEEL LIKE:ACHING, STABBING, SHOOTING DURATION:CONTINOUS, CONSTANT, ALL DAY PAIN IS INCREASED BY:OTHERS WEATHER OR SLEEP ON IT WRONG PAIN IS DECREASED BY:USE OF PAIN MEDICATIONS NURSING NOTE: -. PAIN CENTER INTAKE QUESTIONS: DO YOU HAVE A HISTORY OF MRSA? :NO DO YOU TAKE A BLOOD THINNERS? :NO DO YOU HAVE ANY BLEEDING DISORDERS? :NO ANY NEW NUMBNESS OR WEAKNESS IN YOUR LEGS OR ARMS? :NO ANY PACEMAKER,DEFIBRILLATOR, OR DORSAL COLUMN STIMULATOR? :YES DORSAL COLUMN STIMULATOR DO YOU HAVE ANY RASHES OR OPEN SORES? :NO ARE YOU ALLERGIC TO IV DYE? :NO ARE YOU DIABETIC? :NO ANY NEW PROBLEMS WITH YOUR MEDICATIONS? :NO HAVE YOU RECEIVED A VACCINE IN THE PAST 30 DAYS? :NO DO YOU PLAN TO RECEIVE A VACCINE IN THE NEXT 21 DAYS? :NO DO YOU NEED ANY PRESCRIPTION? :NO DO YOU TAKE ANY IMMUNOSUPPRESSIVE MEDICATIONS? :NO IS THERE A CHANCE YOU COULD BE ? :NO ARE YOU BREAST FEEDING? :NO CURRENT MEDICATIONS TAKING REFRESH OPTIVE 0.5-0.9 % SOLUTION OPHTHALMIC TAKING CYMBALTA 60 MG CAPSULE DELAYED RELEASE PARTICLES 2 CAPSULES ORALLY BID TAKING QUETIAPINE FUMARATE 100 MG TABLET 2 TABLET ORALLY TAKES 800 MG IN PM TAKING QUETIAPINE FUMARATE 300 MG TABLET 2 TABLET AT BEDTIME ORALLY TAKES 800 MG IN PM ONCE A DAY TAKING PRAZOSIN HCL 2 MG CAPSULE 1 CAPSULE AT BEDTIME ORALLY ONCE A DAY TAKING KLONOPIN 0.5 MG TABLET 2 TABLET DAILY NEEDED ONCE A DAY TAKING PROPRANOLOL HCL 10 MG TABLET TAKE ONE TABLET BY MOUTH TWICE DAILY BOTTLE ORAL TAKING ROLLER WALKER - MISCELLANEOUS DIRECTED WITH WHEELS, SEAT AND BRAKE TAKING TOPIRAMATE 100 MG TABLET 1 TABLET ORALLY ONCE DAILY AT NIGHT TAKING OXYBUTYNIN CHLORIDE 5 MG TABLET 1 TABLET ORALLY ONCE A DAY TAKING VENTOLIN HFA 108 (90 BASE) MCG/ACT AEROSOL SOLUTION 2 PUFFS NEEDED INHALATION EVERY 4 HRS PRN TAKING NYSTATIN [id number] UNIT/GM POWDER 1 NULL TO AFFECTED AREA EXTERNALLY TWICE A DAY TAKING CETIRIZINE HCL 10 MG TABLET 1 TABLET ORALLY ONCE A DAY TAKING TOPIRAMATE 100 MG TABLET TAKE ONE TABLET BY MOUTH @5PM TAKING LEVOTHYROXINE SODIUM 25 MCG TABLET TAKE ONE TABLET BY MOUTH @8AM UNKNOWN IBUPROFEN 800 MG TABLET 1 TABLET WITH FOOD OR MILK NEEDED ORALLY THREE TIMES A DAY PRN, NOTES: 12/11 MEDICATION LIST REVIEWED AND RECONCILED WITH THE PATIENT PAST MEDICAL HISTORY GRAND MAL SEIZURES RT SHOULDER STRAIN- NCOG TOBACCO USE EKG PROLONGED QT INTERVAL PREOP APPENDECTOMY OTHERWISE NML- CARDIO EVALUATED- SEE NOTE. ETT [facility] 04/30 NEG ISCHEMIA ECHO [facility]- 04/30- NML SYST AND DIASTOLIC FUNCTION 11/27 NSR, RARE ISOLATED PAC. EEG 09/15/14- NO EPILEPTIFORM ACTIVITY FIBROMYALGIA (TIGGOR POINT INJECTIONS WITH DR. 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 MORAN IN APRIL 2019) CORONER: ORIANA RIVERA, ALLERGIES EFFEXOR: WILD MOOD CHANGES MELA TO BIPOLAR I - SIDE EFFECTS LATEX (FOR ALLERGY USE ONLY): RASH - ALLERGY METHOCARBAMOL: LOWERS SEIZURE THRESHOLD - SIDE EFFECTS ADHESIVE: HIVES - ALLERGY ENVIRONMENTAL (DOG, DANDER), TOMATOE: HIVES - ALLERGY CAT DANDER: SINUS CONGESTION SOCIAL HISTORY GENERAL: TOBACCO USE ARE YOU A:CURRENT SMOKER ARE YOU INTERESTED IN QUITTING?NOT READY TO QUIT COUNSELED THE PATIENT ON SMOKING EFFECTS, EDUCATION [id number]/27/2021 HOW MANY CIGARETTES A DAY DO YOU SMOKE?6-10 PATIENT COUNSELED ON THE DANGERS OF TOBACCO USE AND URGED TO QUIT:01/19/2020 SMOKING CESSATION INFORMATION GIVEN01/19/2020 LATEX QUESTIONNAIRE LATEX ALLERGY : HAVE YOU EVER DEVELOPED ANY TYPE OF REACTION AFTER HANDLING LATEX PRODUCTS SUCH RUBBER GLOVES, CONDOMS, DIAPHRAGMS, BALLOONS, SOCKS, OR UNDERWEAR?YES KNOWN LATEX ALLERGY LATEX ALLERGY : HAVE YOU EVER DEVELOPED ANY TYPE OF REACTION DURING OR AFTER DENTAL APPOINTMENT, VAGINAL/RECTAL EXAMINATION, SURGICAL PROCEDURE, OR ANY OTHER EXPOSURE?YES LATEX RISK : HAVE YOU EVER HAD ANY DIFFICULTY BREATHING OR HIVES AFTER EATING OR HANDLING ANY FRUITS, OR VEGETABLES; SUCH KIWI, BANANAS, STONE FRUITS, OR CHESTNUTSYES LATEX RISK : DO YOU HAVE A PREVIOUS PERSONAL HISTORY OF MORE THAN NINE SURGERIES, SPINA BIFIDA, OR REPEATED CATHERIZATIONS? NO LATEX RISK : ARE YOU FREQUENTLY EXPOSED TO LATEX PRODUCTS IN YOUR OCCUPATION?NO DATE ASKED : 04/11/2020 ALCOHOL USE: NO. LUNG CANCER SCREENING SMOKING STATUS:CURRENT SMOKER BMI CARE GOAL FOLLOW-UP ABOVE NORMAL BMI FOLLOW-UPLIFESTYLE EDUCATION REGARDING DIET ALCOHOL SCREENING DID YOU HAVE A DRINK CONTAINING ALCOHOL IN THE PAST YEAR?NO POINTS0 INTERPRETATIONNEGATIVE RECREATIONAL DRUG USE DRUG USE?YES HOW OFTEN AND HOW MUCH? SMOKES ONCE OR TWICE A WEEK FOR PAIN MANAGEMENT CAFFEINE CAFFEINE USE?YES 1 CUP PER DAY SEXUAL HX HAD SEX IN THE LAST 12 MONTHS (VAGINAL, ORAL, OR ANAL)?YES WITHMEN ONLY HAVE YOU EVER HAD AN STD?YES GC?YES CHLAMYDIA?YES HIV / HEP-C SCREENING HIV TEST OFFERED TO PATIENT:NO HEP-C TEST OFFERED TO PATIENT:NO MOSQUE [id number] ROMAN CATHOLIC LANGUAGE LANGUAGES SPOKEN:ARMENIAN EDUCATION LEVEL OF EDUCATION:HIGH SCHOOL LEARNING BARRIERS / SPECIAL NEEDS CHANGE FROM LAST VISIT?YES BARRIERS TO LEARNING?NO HEARING IMPAIRED?NO VISION IMPAIRED?YES :CORRECTIVE LENSES COGNITIVELY IMPAIRED?NO CORONER COMES WITH HER TO APPOINTMENTS READINESS TO LEARN?YES LEARNING PREFERENCES?NO LEARNING CAPABILITIES PRESENT?YES EMOTIONAL BARRIERS?NO SPECIAL DEVICES?YES :CANE, WALKER NEEDED INDIVIDUAL SMALL GROUP INSTRUCTOR NEEDED?NO DOMESTIC VIOLENCE DO YOU FEEL SAFE IN YOUR ENVIRONMENT?YES OCCUPATION: DISABLED. DIET: REGULAR. EXERCISE: NO REGULAR EXERCISE. MARITAL STATUS: SINGLE. OTHERS AT HOME: NONE. - PFS REFERRAL NEEDED?NO CLERGY REFERRAL NEEDED?NO PUBLIC HEALTH REFERRAL NEEDED?NO HAS THE PATIENT BEEN EDUCATED REGARDING HIS/HER PLAN OF CARE?YES HAS THE PATIENT BEEN EDUCATED REGARDING PAIN, THE RISK FOR PAIN, THE IMPORTANCE OF EFFECTIVE PAIN MANAGEMENT, AND THE PAIN ASSESSMENT PROCESS?YES ADVANCE DIRECTIVE ADVANCE DIRECTIVE DISCUSSED WITH PATIENT:NO PT STATES SHE DOES NOT HAVE ANY ADVANCED DIRECTIES, SHE HAS THE PAPER WORK ON HCP BUT HAS NOT COMPLETED THEM OF THIS DATE. ASSISTANCE OFFERED IN COMPLETING FORM IF NEEDED. REVIEW OF SYSTEMS CONSTITUTIONAL: ANY RECENT FEVER NO . CHILLS NO . WEIGHT CHANGE OF UNKNOWN REASONS NO . GASTROENTEROLOGY: NEW UNEXPLAINABLE CHANGES IN BOWEL CONTROL NO . CONSTIPATION NO . GENITOURINARY: ANY NEW CHANGE IN BLADDER CONTROL? NO . NEUROLOGY: NEW ONSET DIZZINESS OR NEUROLOGICAL CHANGES NOT MENTIONED NO . NEW NUMBNESS OR PAIN PATTERNS NOT MENTIONED AND PERTINENT TO TODAY'S VISIT NO . CARDIOLOGY: NEW CHEST PRESSURE NO . NEW CHEST PAIN NO . RESPIRATORY: UNEXPLAINABLE COUGH NO . NEW SHORTNESS OF BREATH NO . VITAL SIGNS WT 258 LBS, HT 65 IN, BMI 42.93 INDEX, BP 103/61 MM HG, HR 89 /MIN, RR 18 /MIN, TEMP 96.7 F, OXYGEN SAT % 96%, SAFE IN ENV? (Y/N) YEST.PAUL COY. EXAMINATION GENERAL EXAMINATION: GENERALNO ACUTE DISTRESS, WELL NOURISHED AND HYDRATED. PSYCHAPPROPRIATE MOOD AND AFFECT . NECK:POINT TENDER BILATERAL NECK AND SHOULDERS, SURROUNDING SKIN SHOWS NO ERYTHEMA, ECCHYMOSIS, INCREASED WARMTH, AND/OR SKIN ERUPTIONS NOTED. BANDS OF RESTRICTIVE TISSUE NOTED OVER TRIGGER POINTS. . LUNGS:CLEAR TO AUSCULTATION BILATERALLY, NO WHEEZES, RHONCHI, RALES. HEART:NO MURMURS, REGULAR RATE AND RHYTHM. ASSESSMENTS MYALGIA, OTHER SITE - M79.18 (PRIMARY) TREATMENT MYALGIA, OTHER SITE NOTES: 45-YEAR-OLD FEMALE IN FOR CHRONIC PAIN FOLLOW-UP. GIVEN PRESENTING SYMPTOMS AND RESULTS OF PHYSICAL EXAMINATION RECOMMEND BILATERAL NECK AND SHOULDER TRIGGER POINT INJECTIONS WITH POST PROCEDURAL FOLLOW-UP. RICA FROM [facility] WAS HERE TODAY TO ADJUST PATIENT'S DCS. PATIENT HAS EXPRESSED UNDER STANDING OF AND WAS IN AGREEMENT WITH TREATMENT PLAN. GIVEN TIME TO ASK QUESTIONS AND EXPRESS CONCERNS. PROCEDURE CODES FA211 ESTABILISHED PATIENT [facility] FACILITY CHARGE DISPOSITION & COMMUNICATION FOLLOW UP POSTPROCEDURE (REASON: TRIGGER POINT INJECTIONS BILATERAL NECK AND SHOULDERS) ELECTRONICALLY SIGNED BY JENNIFER WALDRON ON 04/12/2020 AT 10:49 AM EST DISCLAIMER : THIS IS A VISIT SUMMARY EXTRACTED FROM THE ECLINICALWORKS CHART. IT IS NOT A COPY OF THE [facility] PROGRESS NOTE. MTDD
== END ==
LOC: M PAIN 14:15
PROVIDERS: ATTEND Family Medicine
DX: M79.18 Myalgia, other site (principal); M79.7 Fibromyalgia; E03.9 Hypothyroidism, unspecified; F17.210 Nicotine dependence, cigarettes, uncomplicated; J30.81 Allergic rhinitis due to animal (cat) (dog) hair and dander; Z79.899 Other long term (current) drug therapy; Z88.8 Allergy status to other drugs, medicaments and biological substances; Z91.040 Latex allergy status; Z91.048 Other nonmedicinal substance allergy status; Z91.018 Allergy to other foods

== ENCOUNTER → 2020-06-19 | Outpatient (REF) | payer OTHER | LOC: M SFHCPLAZ 09:07 | PROVIDERS: ATTEND Family Medicine | DX: R63.5 Abnormal weight gain (principal) ==

== ENCOUNTER 2021-01-09 09:55 | Emergency (ER) | payer OTHER ==
[~2021-01-09] VITALS: Ht 167.6 cm; Wt 119.3 kg
[~2021-01-09 09:55] MED LIST changes: +CETI-43 PO; -HM A10TA PO; +QUET1TAB17 PO; -QUET25TA3 PO
--- OUTSIDE RECORDS SUMMARY | 2021-01-09 10:03 | CCD ---
Author Author [facility] Organization [facility] Address Unknown Phone Unavailable Care Team Providers Care Safety Supervisor Name Role Phone Daren Brasher Unavailable PROBLEMS Type Condition ICD9-CM Code ALD08-MR Code Onset Dates Condition S tatus W/U Status Risk SNOMED Code Notes Problem Pituitary cyst E23.6 Active confirmed 90880 6008 Problem Depression F32.9 Active confirmed 39267102 Problem Seizure R56.9 Active confirmed 95076021 Problem Obesity E66.9 Active confirmed 930993697 Problem Allergic rhinitis, unspecifi ed chronicity, unspecified seasonality, unspecified trigger J30.9 Active confirmed 37469678 Problem Acquired hypothyroidism E03.9 Active confirmed 296764588 Problem Pain of multiple sites R52 Active confirmed 02513377 Problem Myalgia, other site M79.18 Active confirmed 12662299 Problem Migraine with aura and without status migrainosu s, not intractable G43.109 Active confirmed 9335456 Problem PTSD (post-traumatic stress disorder) F43.10 Ac tive confirmed 99105363 Problem Restless legs syndrome G25.81 Active confirmed 17261695 Problem Fibromyalgia M79.7 Active confirmed 3513232 05 Problem Memory problem R41.3 Active confirmed 64003 7006 Problem Stress incontinence N39.3 Active confirmed 54145543 Problem Cervical post-laminectomy syndrome M96.1 Activ e confirmed 626366963 Problem Intervertebral disc disorders with radiculopathy , lumbar region M51.16 Active confirmed 736291555530465 Problem Mental disability without special needs F79 Active confirmed 43300694 Problem Nocturnal leg cramps G47.62 Active confirmed 086699756 Problem Incontinence in female R32 Active confirmed 48324370 Problem Morbid (severe) obesity due to excess calories E66 .01 Active confirmed 494193141 Problem Borderline personality disorder F60.3 Active confi rmed 62798967 Problem Sleep apnea, unspecified type G47.30 Active confirm ed 45725308 Problem Pure hypercholesterolemia E78.00 Active confirmed 651246432 Problem Tobacco dependence F17.200 Active confirmed 57500180 Problem Other chronic pain G89.29 Active confirmed 8 2111991 Problem Other chronic postprocedural pain G89.28 Active confirmed 977311029918407 Problem Body mass index [BMI]40.0-44.9, adult Z68.41 Ac tive confirmed 600860850 Problem Smoking F17.200 Active confirmed 39936004 ALLERGIES Allergen (clinical drug ingredient) Drug/Non Drug Allergy do cumented on EMR Reaction Allergy Type Onset Date Status Cat dander cat dander sinus congestion Non Drug Allergy Ac tive adhesive Hives Non Drug Allergy Active Effexor wild mood changes jeane to Bipolar I Drug Allerg y Active environmental (dog, dander), tomatoe Hives Non Drug A llergy Active methocarbamol Methocarbamol([facility] Code:[address]-76) lowers sei zure threshold Drug Allergy Active Latex (for allergy use only) rash Drug Allergy Active ENCOUNTERS from 1975 to 2020-12-12 Encounter Location Date Provider Diagnosis [address] [phone] [place] [address] 16 Nov, 2020 Daren Brasher IMMUNIZATIONS Vaccine Route Administration Date Status Moderna #1 dose COVID-19(given elsewhere) SARSCOV2 VAC 100MC G/0.5ML IM Unknown July 31, 2020 Administered Influenza 18 yrs & older Flublok IM Intramuscular Mar 11, 2019 Administered Pneumococcal Adult 0.5mL Pneumovax 23 IM Intramuscular September 01, 2017 Administered TDAP IM Intramuscular Dec 15, 2014 Administered TD Adult 0.5mL Tetanus Unknown Dec 15, 2014 Pending Influenza 6mo & up Fluzone IM Intramuscular Feb 20, 2017 Admi nistered Influenza 6mo & up Fluzone IM Intramuscular Jan 03, 2016 Admi nistered Influenza 6mo & up Fluzone IM Intramuscular Dec 15, 2014 Admi nistered SOCIAL HISTORY Tobacco Use: Social History Observation Description Date Details (start date - stop date) Current Smoker Sex Assigned At : Social History Observation Description Sex Assigned At Unknown Education: Question Answer Notes Level of Education: High School Audit Question Answer Notes Total Score: 0 Interpretation: Alcohol Education Language: Question Answer Notes Languages spoken: Chilean Protestant: Question Answer Notes Protestant 08 Taoism Sexual Hx: Question Answer Notes Had sex in the last 12 months (vaginal, oral, or anal)? Yes Have you ever had an STD? Yes with Men only GC? Yes Chlamydia? Yes Drug and Alcohol Question Answer Notes Total Score: 0 Interpretation: No problems reported Alcohol Screening: Question Answer Notes Did you have a drink containing alcohol in the past year? No Points 0 Interpretation Negative BMI Care Goal Follow-Up Question Answer Notes Above Normal BMI Follow-Up Lifestyle education regarding t Tobacco Use: Question Answer Notes Are you a: current smoker Smoking Cessation Information Given 01/19/2020 Patient counseled on the dangers of tobacco use and urged to quit: 01/19/2020 How many cigarettes a day do you smoke? 6-10 Are you interested in quitting? Not ready to quit Counseled the patient on smoking effects, education provided 04/11/2020 REASON FOR REFERRAL No Information VITAL SIGNS No information MEDICATIONS Medication SIG (Take, Route, Frequency, Duration) Notes Start Da te End Date Status KlonoPIN 0.5 MG 2 tablet daily as needed Once a day Active Propranolol HCl 10 MG TAKE ONE TABLET BY MOUTH TWICE DAILY BOTTLE Ora l Active Refresh Optive 0.5-0.9 % Ophthalmic Active QUEtiapine Fumarate 100 MG 2 tablet Orally Takes 800 mg in PM Active QUEtiapine Fumarate 300 MG 2 tablet at bedtime Orally Takes 800 mg in PM Once a day Active Oxybutynin Chloride 5 MG 1 tablet Orally Once a day for Active Ibuprofen 800 MG 1 tablet with food or milk a s needed Orally Three times a day PRN for 30 days 12/11Jun, Unknown Cetirizine HCl 10 MG 1 tablet Orally Once a day for 28 Active Topiramate 100 MG 1 tablet orally once daily at night for 90 day(s) Active Levothyroxine Sodium 25 MCG TAKE ONE TABLET BY MOUTH @ 8AM orally Once a day for 30 days Active Ventolin HFA 108 (90 Base) MCG/ACT 2 puffs as needed I nhalation every 4 hrs prn for 30 day(s) Active Topiramate 100 MG TAKE ONE TABLET BY MOUTH @5PM orally Once a da y for 30 days Active Nystatin 654896 UNIT/GM 1 null to affected area Exte rnally Twice a day for 30 days Active Prazosin HCl 2 MG 1 capsule at bedtime Orally Once a day Active Cymbalta 60 MG 2 capsules Orally bid Active Roller Walker - as directed with wheels, seat and brake Nov, Active PROCEDURES No Information RESULTS No Results REASON FOR VISIT breathing difficulty MEDICAL (GENERAL) HISTORY Type Description Date Medical History Grand Mal seizures Medical History Rt shoulder strain- NCOG Medical History tobacco use Medical History EKG prolonged QT interval pr eop Appendectomy otherwise Nml- Cardio evaluated- see note. Medical History ETT [facility] 04/30 neg ischemia Medical History Echo [facility]- 04/30- nml syst and diastolic f unction Medical History HM 11/27 NSR, rare isolated PAC. Medical History EEG 09/15/14- no epileptiform activity Medical History fibromyalgia (tiggor point injections wi Dr. Staley) Medical History hypothyrodism, primary Medical History pituitary cystic lesion, fav or RCC>microadenoma-08/2016 10x 7.5 mm Medical History IBS Medical History stress incontinence (will be getting a bladder sling by Dr. 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, Surgical History ovary on cyst ruptered 1993 Surgical History tubal ligation 2001 Surgical History appendectomy 09/26/13 Surgical History C-5, C-6, C-7 diskectomy, osteophytectom y 01/2015 Hospitalization History childbirth Hospitalization History [facility] 04/26/17-05/01/17 Hospitalization History neck surgery Goals Section No Information Health Concerns No Information MEDICAL EQUIPMENT No Information MENTAL STATUS No Information FUNCTIONAL STATUS No Information ASSESSMENTS No Information PLAN OF TREATMENT No Information Insurance Providers Payer Name Payer Address Payer Phone Insured Name Patient Relati onship to Insured Coverage Start Date Coverage End Date [facility] [address] [facility] [address] JOSEPH AVILEZ self
--- OUTSIDE RECORDS SUMMARY | 2021-01-09 10:03 | CCD ---
Author Author Albertina Villafana Organization Unknown Address [address] [address] Phone Care Team Providers Care Geodetic Surveyor Technologist Name Role Phone Luisa Villafana PCP Chief Complaint and Reason for Visit Chief Complaint Allergies, Adverse Reactions, Alerts Concept Allergy Name Reaction Severity Onset Date Status Documentation Date Phone Number Npid Taxonomy Code Taxonomy Desc Author Last Name Author Fi rst Name Concept Type 176848 Effexor XR (venlafaxine) Unspecified 05/20/2017 Active 05/20/2017 [id number] Psychiatric/Mental Health Lorna Rosenbaum RXNORM 144051 methocarbamol Unspecified 05/20/2017 Active 05/20/2017 [id number] Psychiatric/Mental Health Lorna Ilsa RX NORM Problem List Concept Problem Description Status Start Date Created Date Resolv ed Date Snomed Code F43.12 Post-traumatic stress disorder, chronic Active 05/19/2017 05/19/2017 F33.41 Major Depressive Disorder, Recurrent epi sode, In partial remission Active 11/04/2017 11/04/2017 F31.81 Bipolar II Disorder Active 11/04/2017 11/04/2017 F40.01 Agoraphobia with panic disorder Active 08/16/2018 019 F10.10 Alcohol Use Disorder, Mild Active 10/17/2020 Medications Rx Norm Medication Route Route Concept Start Date Stop Date Dosage Rajesh quency Duration Formula Strength Dosage Form Dosage Form Code Dosage Description Medication Id Account Npid Author First Name Author Last Name Taxonomy Code Taxonomy Desc Phone Number [id number] propranolol by mouth [id number] 09/02/2018 twice a day 10 mg t ablet 77158 863363 [id number] Tessa Herrmann [id number] Nurse Practitioner [phone] [id number] Seroquel 03/24/2019 300 mg tablet 70793 1 27250 [id number] Tessa Herrmann [id number] Nurse Practitioner [phone] 348987 Seroquel by mouth [id number] 03/24/2019 twice a day 100 mg tablet as directed 21513 520820 [id number] Tessa Herrmann [id number] Nurse Practition er [phone] 679452 Cymbalta 12/19/2019 12/02/2020 30 60 mg capsule,delayed release(DR/EC) 68811 036499 [id number] Tessa Herrmann [id number] Nurse Practitioner [id number] Social History Social History Element Description Concept Effective Date Smoking Status Unknown if ever smoked [id number] Immunizations No Data in Section Vital Signs No Data in Section Procedures Date Concept Id Description Targeted Site Concept Targeted Site Concept Type 10/17/2020 03150 Extended Individual Psychotherapy - 45 min CPT Patient has no history of implantable de vices Encounters Encounter Start Date End Date Encounter Type Description Diagnosis Di agnosis Desc Location Author First Name Author Last Name Npid Taxonomy Cod e Taxonomy Desc Phone Number Location Addr1 Location Addr2 Location [facility] Location Sta te Location Zip [id number] 10/17/2020 10/17/2020 82625 Extended Individual Psych otherapy - 45 min F43.12 Post-traumatic stress disorder, chronic [facility] Luisa [id number] Mental Health [phone] [address] [address] Plan of Treatment No Data in Section Lab Results No Data in Section Instructions No Data in Section Insurance Providers Insurance Id Policy Effective Date Policy Thru Date Company N misael [id number] 2017 [employer] Managed Jatin ambrose
--- OUTSIDE RECORDS SUMMARY | 2021-01-09 10:04 | CCD ---
Author Author [facility] Organization [facility] Address Unknown Phone Unavailable Support Name Relationship Address Phone JAE JACK Next Of Kin [address] [id number] KATTY GALICIA Next Of Kin [address] [place] [address] MARYANNMODESTOGIANFRANCO, [place] [address] SERAFINMEGHANNGlory AMOS Next Of Kin Unknown MARYANN-GIANFRANCOPARAMA Next Of Kin [address] [place] [address] DISABILITY Next Of Kin UN UN, UN UN DARIO MARTINS Next Of Kin [address] [place] [address] DISABLED Next Of Kin Unknown Unavailable DU MARTINS Next Of Kin [address] [place] [address] ÁNGEL FLOWER Next Of Kin [address] [place], [place] UE Next Of Kin Unknown Unavailable JODI SP[place] [address] NICE [place] [address] ST Next Of Kin Unknown Unavailable AMOS WOLF Next Of Kin [address] [place] [address] UN Next Of Kin Unknown Unavailable ALAN LUNA Next Of Kin [address] [place] [address] NICE N EASY Next Of Kin [address] [place] [address] CATRACHO AUGUSTE Next Of Kin ANABEL [place], [place] [id number] TIMELESS DECOR Next Of Kin [address] [place] [address] Unavailable Umm [place] [address] GUERO JAE ECON [address] [place] [address] [place] [address] Unavailable Alan Luna ECON [address] [facility] [place] [address] [phone] Shy LUNA ECON [address] [place] [address] Care Team Providers Care Chucking Machine Set Up Operator Tool Name Role Phone Deena Brasher MD Unavailable Unavailable Deena Brasher MD Unavailable Unavailable Deena Brasher MD Unavailable Unavailable Deena Brasher MD Unavailable Unavailable Deena Brasher MD Unavailable Unavailable Deena Brasher MD Unavailable Unavailable Deena Brasher MD Unavailable Unavailable Deena Brasher MD Unavailable Unavailable Deena Brasher MD Unavailable Unavailable Deena Brasher MD Unavailable Unavailable Deena Brasher MD Unavailable Unavailable Deena Brasher MD Unavailable Unavailable Deena Brasher MD Unavailable Unavailable Deena Brasher MD Unavailable Unavailable Deena Brashre MD Unavailable Unavailable Deena Brasher MD Unavailable Unavailable Deena Brasher MD Unavailable Unavailable Deena Brasher MD Unavailable Unavailable Deena Brasher MD Unavailable Unavailable Deena Brasher MD Unavailable Unavailable Deena Brasher MD Unavailable Unavailable Deena Brasher MD Unavailable Unavailable Deena Brasher MD Unavailable Unavailable Deena Brasher MD Unavailable Unavailable Deena Brasher MD Unavailable Unavailable Deena Brasher MD Unavailable Unavailable Deena Brasher MD Unavailable Unavailable Deena Brasher MD Unavailable Unavailable Deena Brasher MD Unavailable Unavailable Deena Brasher MD Unavailable Unavailable Deena Brasher MD Unavailable Unavailable Deena Brasher MD Unavailable Unavailable Deena Brasher MD Unavailable Unavailable Deena Brasher MD Unavailable Unavailable Deena Brasher MD Unavailable Unavailable Deena Brasher MD Unavailable Unavailable Deena Brasher MD Unavailable Unavailable Deena Brasher MD Unavailable Unavailable Deena Brasher MD Unavailable Unavailable Deena Brasher MD Unavailable Unavailable Deena Brasher MD Unavailable Unavailable Deena Brasher MD Unavailable Unavailable Anshu, Deena Mercedes MD Unavailable Unavailable Anshu, Deena Mercedes MD Unavailable Unavailable Smock, Deena Mercedes MD Unavailable Unavailable Anshu, Deena Mercedes MD Unavailable Unavailable Anshu, Deena Mercedes MD Unavailable Unavailable Smock, Deena Mercedes MD Unavailable Unavailable Smock, Deena Mercedes MD Unavailable Unavailable Smock, Deena Mercedes MD Unavailable Unavailable Smock, Deena Mercedes MD Unavailable Unavailable Smock, Deena Mercedes MD Unavailable Unavailable Anshu, Deena Mercedes MD Unavailable Unavailable Anshu, Deena Mercedes MD Unavailable Unavailable Anshu, Deena Mercedes MD Unavailable Unavailable GALGANO, GIGI ACOSTA Unavailable Unavailable GALGANOGIGI MD Unavailable Unavailable GALGANOGIGI MD Unavailable Unavailable GALGANOGIGI MD Unavailable Unavailable GALGANOGIGI MD Unavailable Unavailable GALGANOGIGI MD Unavailable Unavailable GALGANOGIGI MD Unavailable Unavailable GALGANO, GIGI ACOSTA Unavailable Unavailable GALGANO, GIGI ACOSTA Unavailable Unavailable GALGANO, GIGI ACOSTA Unavailable Unavailable GALGANOGIGI MD Unavailable Unavailable GALGANOGIGI MD Unavailable Unavailable GALGANOGIGI MD Unavailable Unavailable GALGANOGIGI MD Unavailable Unavailable GALGANOGIGI MD Unavailable Unavailable GALGANOGIGI MD Unavailable Unavailable GALGANOGIGI MD Unavailable Unavailable GALGANOGIGI MD Unavailable Unavailable GALGANOGIGI MD Unavailable Unavailable GALGANOGIGI MD Unavailable Unavailable GALGANOGIGI MD Unavailable Unavailable GALGANOGIGI MD Unavailable Unavailable GALGANOGIGI MD Unavailable Unavailable GALGANOGIGI MD Unavailable Unavailable GALGANOGIGI MD Unavailable Unavailable GALGANGIGI Wynne MD Unavailable Unavailable GALGANGIGI Wynne MD Unavailable Unavailable GALGANOGIGI MD Unavailable Unavailable GALGANOGIGI MD Unavailable Unavailable GALGANOGIGI MD Unavailable Unavailable GALGANOGIGI MD Unavailable Unavailable GALGANOGIGI MD Unavailable Unavailable GALGANOGIGI MD Unavailable Unavailable GALGANOGIGI MD Unavailable Unavailable GALGANOGIGI MD Unavailable Unavailable GALGANOGIGI MD Unavailable Unavailable GALGANGIGI Wynne MD Unavailable Unavailable GALGANGIGI Wynne MD Unavailable Unavailable GALGANOGIGI MD Unavailable Unavailable GALGANOGIGI MD Unavailable Unavailable Stuck, K Jeanine PA Unavailable Unavailable Stuck, K Jeanine PA Unavailable Unavailable Stuck, K Jeanine PA Unavailable Unavailable Stuck, K Jeanine PA Unavailable Unavailable Stuck, K Jeanine PA Unavailable Unavailable Stuck, K Jeanine PA Unavailable Unavailable Stuck, K Jeanine PA Unavailable Unavailable Stuck, K Jeanine PA Unavailable Unavailable Stuck, K Jeanine PA Unavailable Unavailable Stuck, K Jeanine PA Unavailable Unavailable Stuck, K Jeanine PA Unavailable Unavailable Stuck, K Jeanine PA Unavailable Unavailable Stuck, K Jeanine PA Unavailable Unavailable Stuck, K Jeanine PA Unavailable Unavailable Stuck, K Jeanine PA Unavailable Unavailable Stuck, K Jeanine PA Unavailable Unavailable Stuck, K Jeanine PA Unavailable Unavailable Stuck, K Jeanine PA Unavailable Unavailable Stuck, K Jeanine PA Unavailable Unavailable Stuck, K Jeanine PA Unavailable Unavailable Stuck, K Jeanine PA Unavailable Unavailable Stuck, K Jeanine PA Unavailable Unavailable Stuck, K Jeanine PA Unavailable Unavailable Stuck, K Jeanine PA Unavailable Unavailable Stuck, K Jeanine PA Unavailable Unavailable Stuck, K Jeanine PA Unavailable Unavailable Stuck, K Jeanine PA Unavailable Unavailable Stuck, K Jeanine PA Unavailable Unavailable Stuck, K Jeanine PA Unavailable Unavailable Stuck, K Jeanine PA Unavailable Unavailable Stuck, K Jeanine PA Unavailable Unavailable Stuck, K Jeanine PA Unavailable Unavailable Stuck, K Jeanine PA Unavailable Unavailable Stuck, K Jeanine PA Unavailable Unavailable Stuck, K Jeanine PA Unavailable Unavailable Stuck, K Jeanine PA Unavailable Unavailable Stuck, K Jeanine PA Unavailable Unavailable Stuck, K Jeanine PA Unavailable Unavailable Stuck, K Jeanine PA Unavailable Unavailable Stuck, K Jeanine PA Unavailable Unavailable Stuck, K Jeanine PA Unavailable Unavailable Stuck, K Jeanine PA Unavailable Unavailable Miracle Felix Unavailable Gayathri COONEY Unavailable Unavailable Lewis, M Stewart PA Unavailable Unavailable Lewis, M Stewart PA Unavailable Unavailable Lewis, M Stewart PA Unavailable Unavailable Lewis, M Stewart PA Unavailable Unavailable Lewis, M Stewart PA Unavailable Unavailable Lewis, M Stewart PA Unavailable Unavailable Lewis, M Stewart PA Unavailable Unavailable Lewis, M Stewart PA Unavailable Unavailable Lewis, M Stewart PA Unavailable Unavailable Lewis, M Stewart PA Unavailable Unavailable Lewis, M Stewart PA Unavailable Unavailable Lewis, M Stewart PA Unavailable Unavailable Lewis, M Stewart PA Unavailable Unavailable Lewis, M Stewart PA Unavailable Unavailable Lewis, M Stewart PA Unavailable Unavailable Lewis, M Stewart PA Unavailable Unavailable Lewis, M Stewart PA Unavailable Unavailable Lewis, M Stewart PA Unavailable Unavailable Lewis, M Stewart PA Unavailable Unavailable Lewis, M Stewart PA Unavailable Unavailable Lewis, M Stewart PA Unavailable Unavailable Lewis, M Stewart PA Unavailable Unavailable Lewis, M Stewart PA Unavailable Unavailable Lewis, M Stewart PA Unavailable Unavailable Lewis, M Stewart PA Unavailable Unavailable Lewis, M Stewart PA Unavailable Unavailable Lewis, M Stewart PA Unavailable Unavailable Lewis, M Stewart PA Unavailable Unavailable Lewis, M Stewart PA Unavailable Unavailable Lewis, M Stewart PA Unavailable Unavailable Lewis, M Stewart PA Unavailable Unavailable Lewis, M Stewart PA Unavailable Unavailable Lewis, M Stewart PA Unavailable Unavailable Lewis, M Stewart PA Unavailable Unavailable Lewis, M Stewart PA Unavailable Unavailable Lewis, M Stewart PA Unavailable Unavailable Lewis, M Stewart PA Unavailable Unavailable Lewis, M Stewart PA Unavailable Unavailable Lewis, M Stewart PA Unavailable Unavailable Lewis, M Stewart PA Unavailable Unavailable Lewis, M Stewart PA Unavailable Unavailable Lewis, M Stewart PA Unavailable Unavailable Lewis, M Stewart PA Unavailable Unavailable Lewis, M Stewart PA Unavailable Unavailable Lewis, M Stewart PA Unavailable Unavailable Lewis, M Stewart PA Unavailable Unavailable Lewis, M Stewart PA Unavailable Unavailable Lewis, M Stewart PA Unavailable Unavailable Lewis, M Stewart PA Unavailable Unavailable CONSTANTINE, H JOSE RAMON GRAIN BLENDER Unavailable Unavailable CONSTANTINE, H JOSE RAMON GRAIN BLENDER Unavailable Unavailable CONSTANTINE, H JOSE RAMON GRAIN BLENDER Unavailable Unavailable CONSTANTINE, H JOSE RAMON GRAIN BLENDER Unavailable Unavailable CONSTANTINE, H JOSE RAMON GRAIN BLENDER Unavailable Unavailable CONSTANTINE, H JOSE RAMON GRAIN BLENDER Unavailable Unavailable CONSTANTINE, H JOSE RAMON GRAIN BLENDER Unavailable Unavailable CONSTANTINE, H JOSE RAMON GRAIN BLENDER Unavailable Unavailable CONSTANTINE, H JOSE RAMON GRAIN BLENDER Unavailable Unavailable Santa Lewis MD Unavailable Unavailable Santa Lewis MD Unavailable Unavailable Santa Lewis MD Unavailable Unavailable Santa Lewis MD Unavailable Unavailable Santa Lewis MD Unavailable Unavailable Santa Lewis MD Unavailable Unavailable Santa Lewis MD Unavailable Unavailable Santa Lewis MD Unavailable Unavailable Santa Lewis MD Unavailable Unavailable Santa Lewis MD Unavailable Unavailable Santa Lewis MD Unavailable Unavailable Luisa Villafana Unavailable Luisa Villafana Unavailable Ginger Arriaza Unavailable Re-disclosure Warning The records that you are about to access may contain information from federally-assisted alcohol or drug abuse programs. If such information is present, then the following federally mandated warning applies: This information has been disclosed to you from records protected by federal confidentiality rules (42 CFR part 2). The federal rules prohibit you from making any further disclosure of this information unless further disclosure is expressly permitted by the written consent of the person to whom it pertains or as otherwise permitted by 42 CFR part 2. A general authorization for the release of medical or other information is NOT sufficient for this purpose. The Federal rules restrict any use of the information to criminally investigate or prosecute any alcohol or drug abuse patient.The records that you are about to access may contain highly sensitive health information, the redisclosure of which is protected by Article 27-F of the [facility] Public Health law. If you continue you may have access to information: Regarding HIV / AIDS; Provided by facilities licensed or operated by the [facility] Office of Mental Health; or Provided by the [facility] Office for People With Developmental Disabilities. If such information is present, then the following [facility] mandated warning applies: This information has been disclosed to you from confidential records which are protected by state law. State law prohibits you from making any further disclosure of this information without the specific written consent of the person to whom it pertains, or as otherwise permitted by law. Any unauthorized further disclosure in violation of state law may result in a fine or custodial sentence or both. A general authorization for the release of medical or other information is NOT sufficient authorization for further disc losure. Allergies and Adverse Reactions Type Description Substance Reaction Status Data Source(s ) Propensity to adverse reactions to substance methocarbamol Methocarbamol 500 MG Oral Tablet Active [facility] ([facility]) Propensity to adverse reactions to substance Effexor XR (bobby lafaxine) 24 HR venlafaxine 37.5 MG Extended Release Oral Capsule [Effexor] Active [facility] ([facility]) Propensity to adverse reactions LATEX Latex Rash [facility] Propensity to adverse reactions ADHESIVE TAPE ADHESIVE TAPE Rash [facility] Propensity to adverse reactions VENLAFAXINE VENLAFAXINE Other [facility] Propensity to adverse reactions METHOCARBAMOL METHOCARBAMOL Other [facility] Family History Family Member Name Family Member Gender Family Member Status Date o f Status Description Data Source(s) Unknown Unknown Problem [facility] ([facility], ) paternal Encounters Encounter Providers Location Date Indications Data Source(s ) Unknown [address] [facility] [address] 11/29/2020 12:00:00 AM EDT eCW1 ([facility]) Extended Individual Psychotherapy - 45 min Attender: [facility] 10/17/2020 10:15:00 AM EDT - 10/17/2020 10:15:00 AM EDT [facility] ([facility]) Attender: Luisa Villafana 10/17/2020 12:00:00 AM E DT [facility] ([facility]) Unknown [address] [facility] [address] 09/20/2020 12:00:00 AM EDT eCW1 ([facility]) Unknown [address] [facility] [address] 09/20/2020 12:00:00 AM EDT eCW1 ([facility]) Brief Individual Psychotherapy - 30 min Attender: Miracle [facility] 09/14/2020 09:30:00 AM EDT - 09/14/2020 09:30:00 AM EDT [facility] ([facility]) Attender: Miracle Felix 09/14/2020 12:00:00 AM EDT [facility] ([facility]) Extended Individual Psychotherapy - 45 min Attender: [facility] 08/30/2020 08:45:00 AM EDT - 08/30/2020 08:45:00 AM EDT [facility] ([facility]) Attender: Miracle Felix 08/30/2020 12:00:00 AM EDT [facility] ([facility]) Outpatient Attender: JOSE RAMON FITCH NP [facility] Scottie pratt 08/28/2020 05:00:00 AM EDT - 08/28/2020 05:00:00 AM EDT [facility] ([facility]) Attender: JOSE RAMON FITCH NP 08/28/2020 12:00:00 AM EDT [facility] ([facility]) Extended Individual Psychotherapy - 45 min Attender: [facility] 08/16/2020 08:15:00 AM EDT - 08/16/2020 08:15:00 AM EDT [facility] ([facility]) Attender: Miracle Felix 08/16/2020 12:00:00 AM EDT [facility] ([facility]) Outpatient Attender: JOSE RAMON FITCH NP [facility] Scottie pratt 08/14/2020 01:00:00 AM EDT - 08/14/2020 01:00:00 AM EDT [facility] ([facility]) Attender: JOSE RAMON FITCH NP 08/14/2020 12:00:00 AM EDT [facility] ([facility]) Unknown [address] [facility] [address] 08/01/2020 12:00:00 AM EDT eCW1 ([facility]) Brief Individual Psychotherapy - 30 min Attender: Miracle [facility] 07/31/2020 08:15:00 AM EDT - 07/31/2020 08:15:00 AM EDT [facility] ([facility]) Attender: Miracle Felix 07/31/2020 12:00:00 AM EDT [facility] ([facility]) Unknown [address] [facility] [address] 07/20/2020 12:00:00 AM EDT eCW1 ([facility]) Outpatient Attender: JOSE RAMON FITCH NP [facility] Scottie l 06/14/2020 11:30:00 AM EDT - 06/14/2020 11:30:00 AM EDT [facility] ([facility]) Attender: JOSE RAMON FITCH NP 06/14/2020 12:00:00 AM EDT [facility] ([facility]) Outpatient Attender: JOSE RAMON FITCH NP [facility] Scottie l 06/07/2020 11:00:00 AM EDT - 06/07/2020 11:00:00 AM EDT [facility] ([facility]) Extended Individual Psychotherapy - 45 min Attender: [facility] 06/07/2020 02:00:00 AM EDT - 06/07/2020 02:00:00 AM EDT [facility] ([facility]) Attender: JOSE RAMON FITCH NP 06/07/2020 12:00:00 AM EDT [facility] ([facility]) Attender: Miracle Felix 06/07/2020 12:00:00 AM EDT [facility] ([facility]) TEMPMHCTelemed 30" Psychotherapy Attender: Miracle Felix [facility] 05/10/2020 02:00:00 AM EST - 05/10/2020 02:00:00 AM EST [facility] ([facility]) Attender: Miracle Felix 05/10/2020 12:00:00 AM EST [facility] ([facility]) Outpatient [address] [facility] [address] 05/03/2020 12:00:00 AM EST eCW1 ([facility]) Unknown [address] [facility] [address] 05/03/2020 12:00:00 AM EST eCW1 ([facility]) Outpatient Attender: JOSE RAMON FITCH NP [facility] 04/25/2020 03:30:00 AM EST - 04/25/2020 03:30:00 AM EST [facility] ([facility]) Attender: JOSE RAMON FITCH NP 04/25/2020 12:00:00 AM EST [facility] ([facility]) Outpatient Attender: GIGI GAMEZ MD [id number] 04/24/2020 1 2:00:00 AM EST Other mechanical complication of implanted electronic neurostimulator of spinal cord electrode (lead), initial encounter [facility] Other mechanical complication of implant ed electronic neurostimulator of spinal cord electrode (lead), initial encounter Unknown [address] [facility] [address] 04/12/2020 12:00:00 AM EST eCW1 ([facility]) Outpatient [address] [facility] [address] 04/11/2020 12:00:00 AM EST eCW1 ([facility]) Brief Individual Psychotherapy - 30 min Attender: Miracle [facility] 04/09/2020 02:00:00 AM EST - 04/09/2020 02:00:00 AM EST [facility] ([facility]) Attender: Miracle Felix 04/09/2020 12:00:00 AM EST [facility] ([facility]) Extended Individual Psychotherapy - 45 min Attender: [facility] 03/29/2020 10:30:00 AM EST - 03/29/2020 10:30:00 AM EST [facility] ([facility]) Attender: Miracle Felix 03/29/2020 12:00:00 AM EST [facility] ([facility]) Unknown [address] [facility] [address] 03/06/2020 12:00:00 AM EST eCW1 ([facility]) Unknown [address] [facility] [address] 03/01/2020 12:00:00 AM EST eCW1 ([facility]) Outpatient Referrer: Jeanine OPRTER 02/28/2020 12:00 :00 AM EST Other mechanical complication of implanted electronic neurostimulator of spinal cord electrode (lead), initial encounter [facility] Other mechanical complication of implant ed electronic neurostimulator of spinal cord electrode (lead), initial encounter Outpatient Attender: GIGI GAMEZ MD [id number] 12:00:00 AM EST - 02/28/2020 03:34:33 PM EST [facility] Outpatient Referrer: Jeanine PORTER 02/28/2020 12:00 :00 AM EST Other mechanical complication of implanted electronic neurostimulator of spinal cord electrode (lead), initial encounter [facility] Other mechanical complication of implant ed electronic neurostimulator of spinal cord electrode (lead), initial encounter Outpatient Attender: GIGI GAMEZ MDAdmitter: GIGI TRONCOSO MD [id number] 02/16/2020 12:00:00 AM EST - 02/16/2020 05:00:00 PM EST Illness, unspecified [facility] Illness, unspecified Patient discharged. Outpatient Attender: JOSE RAMON FITCH NP [facility] 02/14/2020 11:30:00 AM EST - 02/14/2020 11:30:00 AM EST [facility] ([facility]) Outpatient [address] [facility] [address] 02/14/2020 12:00:00 AM EST eCW1 ([facility]) Attender: JOSE RAMON FITCH NP 02/14/2020 12:00:00 AM EST [facility] ([facility]) Outpatient Attender: JELANI COONEYReferrer: GIGI Wynne MD [id number] 02/13/2020 12:00:00 AM EST - 02/14/2020 12:00:00 AM EST [facility] Outpatient Attender: Sharee Lewis MDReferrer: Sharee Lewis MD 02/13/2020 12:00:00 AM EST Low back pain [facility] Low back pain Outpatient Referrer: GIGI GAMEZ MD 02/13/2020 1 2:00:00 AM EST Low back pain [facility] Low back pain Unknown [address] [facility], [facility] [address] 02/08/2020 12:00:00 AM EST eCW1 ([facility]) TEMPMHCTelemed 30" [facility] 01/27/2020 02:00:00 AM EST - 01/27/2020 02:00:00 AM EST [facility] ([facility]) Attender: Ginger Arriaza 01/27/2020 12:00:[address] [facility] ([facility]) Outpatient [address] [facility] [address] 01/19/2020 12:00:00 AM EST eCW1 ([facility]) Outpatient Attender: GIGI GAMEZ MD 01/05/2020 12:00:0 0 AM EDT [facility] Extended Individual Psychotherapy - 45 min [facility] 08:00:00 AM EDT - 12/30/2019 08:00:00 AM EDT [facility] ([facility]) Attender: Ginger Arriaza 12/30/2019 12:00:00 AM E DT [facility] ([facility]) Outpatient Attender: GIGI GAMEZ MDReferrer: GIGI TRONCOSO MD [id number] 12/29/2019 07:53:24 AM EDT - 12/29/2019 10:02:14 AM EDT Low back pain [facility] Low back pain Outpatient Attender: Stewart Lewis PAConsultant: Daren molina MD 12/19/2019 02:25:00 PM EDT - 12/19/2019 02:25:00 PM EDT [facility] Outpatient Attender: JOSE RAMON FITCH NP [facility] 12/19/2019 10:30:00 AM EDT - 12/19/2019 10:30:00 AM EDT [facility] ([facility]) Attender: JOSE RAMON FITCH NP 12/19/2019 12:00:00 AM EDT [facility] ([facility]) Outpatient [address] [facility] [place] [address] 12/14/2019 12:00:00 AM EDT eCW1 ([facility]) Extended Individual Psychotherapy - 45 min [facility] 12/09/2019 02:00:00 AM EDT - 12/09/2019 02:00:00 AM EDT [facility] ([facility]) Attender: Ginger Arriaza 12/09/2019 12:00:00 AM E DT [facility] ([facility]) Functional Status Immunizations Vaccine Date Status Description Data Source(s) COVID-19 VACCINE Moderna 08/28/2020 12:00:00 AM EDT completed [facility] Vaccine Series Complete: YESThis Data wa s Submitted to [facility] Via [employer]. Moderna #1 dose COVID-19(given elsewhere) SARSCOV2 VAC 100MCG/0.5ML IM 07/31/2020 11:51:00 AM EDT completed eCW1 ([facility]) Moderna #1 dose COVID-19(given elsewhere) SARSCOV2 VAC 100MCG/0.5ML IM 07/31/2020 11:51:00 AM EDT completed eCW1 ([facility]) Moderna #1 dose COVID-19(given elsewhere) SARSCOV2 VAC 100MCG/0.5ML IM 07/31/2020 11:51:00 AM EDT completed eCW1 ([facility]) Moderna #1 dose COVID-19(given elsewhere) SARSCOV2 VAC 100MCG/0.5ML IM 07/31/2020 11:51:00 AM EDT completed eCW1 ([facility]) COVID-19 VACCINE Moderna 07/31/2020 12:00:00 AM EDT completed [facility] Vaccine Series Complete: NOThis Data was Submitted to [facility] Via [employer]. Medications Medication Brand Name Start Date Product Form Dose Route Admi nistrative Instructions Pharmacy Instructions Status Indications Reaction Description Data Source(s) Clonazepam 0.5 MG Oral Tablet [Klonopin] Klonopin 09/03/2020 12 :00:00 AM EDT 0.5 mg by mouth completed <td ID="Me dicationRxNorm_5">411571</td><td ID="MedicationMedication_5">Klonopin</td><td ID="MedicationRoute_5">by mouth</td><td ID="MedicationRouteConcept_5">[id number]</td><td ID="MedicationStartDate_5">09/03/2020</td><td ID="MedicationStopDate_5">10/03/2020</td><td ID="MedicationDosageFrequency_5">once a day</td><td ID="MedicationDuration_5">30</td><td ID="MedicationFormulaStrength_5">0.5 mg</td><td ID="MedicationDosageForm_5">tablet</td><td ID="MedicationDosageFormCode_5"></td><td ID="MedicationDosageDescription_5">as needed</td><td ID="MedicationMedicationId_5">[id number]</td><td ID="MedicationAccount_5">[id number]</td><td ID="MedicationNpid_5">[id number]</td><td ID="MedicationAuthorFirstName_5">Jose Ramon</td><td ID="MedicationAuthorLastName_5">Constantine</td><td ID="MedicationTaxonomyCode_5">[id number]</td><td ID="MedicationTaxonomyDesc_5">Nurse Practitioner</td><td ID="MedicationPhoneNumber_5">[phone]</td> [facility] ([facility]) 300 mg 03/24/2020 12:00:00 AM EST capsule 20 TAKE ONE CAPSULE BY MOUTH EVERY 12 HOURS FOR 10 DAYS TAKE ONE CAPSULE BY MOUTH EVERY 12 HOURS FOR 10 DAYS S OLD: 03/31/2020 [facility] multivitamin tablet 1 tablet [id number] 02/17/2020 09:00:00 AM EST 1 {tbl} Oral active 1 tablet, Oral , Daily Standard, First dose on Thu02/17/20 at 0900, For 30 days [facility] Medication administered onsite Oxybutynin chloride 5 MG Oral Tablet oxybutynin (DITRO INIGUEZ) tablet 5 mg oxybutynin (DITROPAN) tablet 5 mg 02/17/2020 09:00:00 AM EST 5 mg Oral active 5 mg, Oral, Every mo rning, First dose on Thu02/17/20 at 0900, For 30 days [facility] Medication administered onsite Cholecalciferol 400 UNT Oral Tablet [place] min D (CHOLECALCIFEROL) tablet 1,200 Units Vitamin D (CHOLECALCIFEROL) tablet 1,200 Units 02/17/2020 09 :00:00 AM EST 1200 U Oral active 1,200 Units, Ora l, Daily Standard, First dose on Thu02/17/20 at 0900, For 30 days [facility] Medication administered onsite Levothyroxine Sodium 0.025 MG Oral Table t levothyroxine (SYNTHROID) tablet 25 mcg levothyroxine (SYNTHROID) tablet 25 mcg 02/17/2020 07:30:00 AM EST 25 ug Oral active 25 mcg, Oral, Before Breakfast, First dose on Thu02/17/20 at 0730, For 30 days [facility] Medication administered onsite Magnesium Hydroxide 80 MG/ML Oral Suspen cary magnesium hydroxide (MILK OF MAGNESIA) 400 MG/5ML suspension 45 mL magnesium hydroxide (MILK OF MAGNESIA) 4 00 MG/5ML suspension 45 mL 02/16/2020 10:00:00 PM EST 45 mL Oral active 45 mL, Oral, Nightly, First dose on Thu02/16/20 at 2200, For 30 days
If serum creatinine > 2 notify provider before administering.
[facility] Medication administered onsite duloxetine 60 MG Delayed Release Oral Ca psule DULoxetine (CYMBALTA) DR capsule 120 mg DULoxetine (CYMBALTA) DR capsule 120 mg 02/16/2020 10:00:[address] 120 mg Oral active 120 mg, Or al, Nightly, First dose on Thu02/16/20 at 2200, For 30 days
Do not crush or chew
[facility] Medication administered onsite quetiapine 200 MG Oral Tablet QUEtiapine (SEROquel) ta blet 200 mg QUEtiapine (SEROquel) tablet 200 mg 02/16/2020 10:00:00 PM EST 200 mg Oral active 200 mg, Oral, Nightly, First dose on Thu02/16/20 at 22 00, For 30 days [facility] Medication administered onsite cetirizine hydrochloride 10 MG Oral Tablet cetirizine (ZYRTEC) tablet 10 mg cetirizine (ZYRTEC) tablet 10 mg 02/16/2020 09:00:00 PM EST 10 mg Oral active 10 mg, Oral, Every e vening, First dose on Thu02/16/20 at 2100, For 30 days [facility] Medication administered onsite topiramate 100 MG Oral Tablet topiramate (TOPAMAX) tab let 100 mg topiramate (TOPAMAX) tablet 100 mg 02/16/2020 09:00:00 PM EST 100 mg Oral active 100 mg, Oral, Every evening, First dose on Ayesha 02/16/20 at 2100, For 30 days [facility] Medication administered onsite Propranolol Hydrochloride 10 MG Oral Tablet propranolo l (INDERAL) tablet 10 mg propranolol (INDERAL) tablet 10 mg 02/16/2020 09:00:00 PM EST 10 mg Oral active 10 mg, Oral, 2 Times Daily, First dose on Ayesha 02/16/20 at 2100, For 30 days
Check vital signs before administering
[facility] Medication administered onsite Prazosin 2 MG Oral Capsule prazosin (MINIPRESS) capsul e 2 mg prazosin (MINIPRESS) capsule 2 mg 02/16/2020 09:00:00 PM EST 2 mg Oral active 2 mg, Oral, Every evening, First dose on Ayesha 02/16/20 at 2100, For 30 days
Check vital signs before administering
[facility] Medication administered onsite gabapentin 300 MG Oral Capsule gabapentin (NEURONTIN) capsule 300 mg gabapentin (NEURONTIN) capsule 300 mg 02/16/2020 05:00:00 PM EST 300 mg Oral active 300 mg, Oral, Three Times D aily Standard, First dose on Ayesha 02/16/20 at 1700, For 30 days [facility] Medication administered onsite Calcium Citrate 950 MG Oral Tablet calcium citrate (CA LCITRATE) tablet 1,900 mg calcium citrate (CALCITRATE) tablet 1,900 mg 02/16/2020 05:00:00 PM EST 1900 mg Oral active 1,900 mg, Oral, Three Times Daily Standard, First dose on Ayesha 02/16/20 at 1700, For 30 days [facility] Medication administered onsite Cefazolin 2000 MG Injection ceFAZolin (ANCEF) IVPB 2 g in dextrose (premix) ceFAZolin (ANCEF) IVPB 2 g in dextrose (premix) 02/16/2020 04:30:00 PM EST 2 g Intravenous active 2 g, Int ravenous, Administer over 30 Minutes, Every 8 hours, First dose on Ayesha 02/16/20 at 1630, For 16 hours
3 gram for patients weighing >/= to 120 kg
[facility] Medication administered onsite ondansetron (ZOFRAN) injection 4 mg 02/16/2020 12:37:47 PM EST 4 mg Intravenous active [Order 1 Star t] Name: ondansetron (ZOFRAN) injection 4 mg Signed Summary: 4 mg, Intravenous, Every 8 hours PRN, Nausea, Vomiting, Starting Ayesha 02/16/20 at 1237, For 7 days [Order 1 End] [Order 2 Start] Name: ondansetron (ZOFRAN) tablet 4 mg Signed Summary: 4 mg, Oral, Every 8 hours PRN, Nausea, Vomiting, Starting Ayesha 02/16/20 at 1237, For 7 days [Order 2 End] [facility] Medication administered onsite Clonazepam 1 MG Oral Tablet clonazePAM (KLONOPIN) tabl et 0.5 mg clonazePAM (KLONOPIN) tablet 0.5 mg 02/16/2020 12:37:46 PM EST 0.5 mg Oral active 0.5 mg, Oral, Daily PRN, anxiety, Starting Ayesha 02/16/20 at 1237, For 30 days [facility] Medication administered onsite albuterol (PROVENTIL HFA) inhaler 2 puff [id number] 02/16/2020 12:37:46 PM EST 2 {puff} Inhalation active 2 pu ff, Inhalation, Every 4 hours PRN, Wheezing, Shortness of Breath, Starting Ayesha 02/16/20 at 1237, For 4 days
Shake the inhaler well before each spray.
[facility] Medication administered onsite metaxalone 800 MG Oral Tablet metaxalone (SKELAXIN) ta blet 800 mg metaxalone (SKELAXIN) tablet 800 mg 02/16/2020 12:37:45 PM EST 800 mg Oral active 800 mg, Oral, Four Times Daily-PRN, Mus rachell spasms, Starting Ayesha 02/16/20 at 1237, For 7 days [facility] Medication administered onsite sennosides, PENITENTIARY 8.6 MG Oral Tablet senna tablet 2 tablet sen na tablet 2 tablet 02/16/2020 12:37:45 PM EST 2 {tbl} Oral active 2 tablet, Oral, Nightly PRN, Constipation, Starting Ayesha 02/16/20 at 1237, For 30 days [facility] Medication administered onsite Bisacodyl 10 MG Rectal Suppository bisacodyl (DULCOLAX ) suppository 10 mg bisacodyl (DULCOLAX) suppository 10 mg 02/16/2020 12:37:45 PM EST 10 mg Rectal active 10 mg, Rectal, Every 72 hours PRN, Constipation, Starting Ayesha 02/16/20 at 1237, For 30 days
Hold if patient has had BM within the past 2 days.
[facility] Medication administered onsite sennosides, PENITENTIARY 35.2 MG/ML Oral Solution senna (SENOKO T) syrup 10 mL senna (SENOKOT) syrup 10 mL 02/16/2020 12:37:45 PM EST 10 mL Oral active 10 mL, Oral, Nightly PRN, Constipation, Starting Ayesha 02/16/20 at 1237, For 30 days [facility] Medication administered onsite Oxycodone Hydrochloride 5 MG Oral Tablet oxyCODONE (ROXICODONE) immediate release tablet 10 mg oxyCODONE (ROXICODONE) immediate release tablet 10 mg 02/16/2020 12:37:45 PM EST 10 mg Oral active 10 mg, Oral, Every 4 hours PRN, Severe Pain (Pain Scale Score 7-10), Starting Ayesha 02/16/20 at 1237, For 3 days
If no SILK TRIMMER or when SILK TRIMMER has been D/Cd.
Oxycodone immediate release is limited to 10 mg per dose. Higher doses ([facility] only) require Pain Service consultation and approval.
[facility] Medication administered onsite Oxycodone Hydrochloride 5 MG Oral Tablet oxyCODONE (ROXICODONE) immediate release tablet 5 mg oxyCODONE (ROXICODONE) immediate release tablet 5 mg 02/16/2020 12:37:45 PM EST 5 mg Oral active 5 mg, Oral, Every 4 hours PRN, Moderate Pain (Pain Scale Score 4-6), Starting Ayesha 02/16/20 at 1237, For 3 days
If no SILK TRIMMER or when SILK TRIMMER has been D/Cd.
Oxycodone immediate release is limited to 10 mg per dose. Higher doses ([facility] only) require Pain Service consultation and approval.
[facility] Medication administered onsite fentaNYL (SUBLIMAZE) (PF) injection 25 mcg [id number] 02/16/2020 12:37:45 PM EST 25 ug Intravenous active 25 m cg, Intravenous, Every 2 hours PRN, Other, breakthrough pain, Starting Ayesha 02/16/20 at 1237, For 3 days [facility] Medication administered onsite Benzocaine 15 MG / Menthol 3.6 MG Oral L ozenge benzocaine-menthol (CEPACOL) 15- 3.6 MG per lozenge 1 lozenge benzocaine-menthol (CEPACOL) 15-3.6 MG p er lozenge 1 lozenge 02/16/2020 12:37:45 PM EST 1 {lozenge} Mouth/Throat active 1 lozenge, Mouth/Throat, Every 2 hours PRN, Sore Throat, Starting Ayesha 02/16/20 at 1237, For 30 days [facility] Medication administered onsite Acetaminophen 325 MG Oral Tablet acetaminophen (TYLENO L) tablet 650 mg acetaminophen (TYLENOL) tablet 650 mg 02/16/2020 12:37:44 PM EST 65 0 mg Oral active 650 mg, Oral, E very 6 hours PRN, Mild Pain (Pain Scale Score 1- 3), Headaches, Fever, Starting Ayesha 02/16/20 at 1237, For 30 days
Maximum daily dose of acetaminophen is 3,000 mg from all sources in 24 hours.
[facility] Medication administered onsite NaCl infusion 0.9 % [id number] 02/16/2020 12:00:00 PM EST Intravenous active at 100 mL/hr, Intrav enous, Continuous, Starting Ayesha 02/16/20 at 1200, For 30 days
Hold for good PO intake.
[facility] Medication administered onsite HYDROmorphone (DILAUDID) injection 0.52 mg [id number] 02/16/2020 11:12:12 AM EST 0.5 mg Intravenous aborted 0.52 mg (rounded from 0.5 mg), Intravenous, Every 5 min PRN, Severe Pain (Pain Scale Score > 6), Starting Ayesha 02/16/20 at 1112, For 4 doses, Recovery [facility] Medication administered onsite sennosides, PENITENTIARY 25 MG Oral Tablet Senna Laxative 25 MG Oral Tablet Senna Laxative 25 MG Oral Tablet 02/16/2020 12:00:00 AM EST Oral active Take by mouth Two Times Daily [facility] gabapentin 300 MG Oral Capsule Gabapentin 300 MG Oral Capsule (NEURONTIN) Gabapentin 300 MG Oral Capsule (NEURONTIN) 02/16/2020 12:00:00 AM EST 300 mg Oral active Take 1 capsule by mo ut Three times daily [facility] Ondansetron 4 MG Oral Tablet Ondansetron HCl 4 MG Oral Tablet (ZOFRAN) Ondansetron HCl 4 MG Oral Tablet (ZOFRAN) 02/16/2020 12:00:00 AM EST 4 mg Oral active Take 1 tablet by mouth every 8 (eight) hours as needed for up to 7 days [facility] sennosides, PENITENTIARY 8.6 MG Oral Tablet Senna 8.6 MG Oral T ablet Senna 8.6 MG Oral Tablet 02/16/2020 12:00:00 AM EST 2 {tbl} Oral active Take 2 tablets by mouth nightly as needed [facility] Oxycodone Hydrochloride 5 MG Oral Tablet oxyCODONE HCl 5 MG Oral Tablet (ROXICODONE) oxyCODONE HCl 5 MG Oral Tablet (ROXICODONE) 02/16/2020 12:00:00 AM EST 5 mg Oral active Take 1 t ablet by mouth every 4 (four) hours as needed for up to 3 days, Max Daily Dose: 30 mg [facility] duloxetine 60 MG Delayed Release Oral Capsule [Cymbalta] Cym zaid 12/19/2019 12:00:00 AM EDT 60 mg completed <td ID="MedicationRxNorm_5">572193</td><td ID="MedicationMedication_5">Cymbalta</td><td ID="MedicationRoute_5"></td><td ID="MedicationRouteConcept_5"></td><td ID="MedicationStartDate_5">12/19/2019</td><td ID="MedicationStopDate_5">09/12/2020</td><td ID="MedicationDosageFrequency_5"></td><td ID="MedicationDuration_5">30</td><td ID="MedicationFormulaStrength_5">60 mg</td><td ID="MedicationDosageForm_5">capsule,delayed release(DR/EC)</td><td ID="MedicationDosageFormCode_5"></td><td ID="MedicationDosageDescription_5"></td><td ID="MedicationMedicationId_5">[id number]</td><td ID="MedicationAccount_5">[id number]</td><td ID="MedicationNpid_5">[id number]</td><td ID="MedicationAuthorFirstName_5">Jose Ramon</td><td ID="MedicationAuthorLastName_5">Constantine</td><td ID="MedicationTaxonomyCode_5">[id number]</td><td ID="MedicationTaxonomyDesc_5"> Nurse Practitioner</td><td ID="MedicationPhoneNumber_5">[phone]</td> [facility]) duloxetine 60 MG Delayed Release Oral Capsule [Cymbalta] [facility] 12/19/2019 12:00:00 AM EDT 60 mg completed <td ID="MedicationRxNorm_4">[id number]</td><td ID="MedicationMedication_4">Cymbalta</td><td ID="MedicationRoute_4"></td><td ID="MedicationRouteConcept_4"></td><td ID="MedicationStartDate_4">12/19/2019</td><td ID="MedicationStopDate_4">12/02/2020</td><td ID="MedicationDosageFrequency_4"></td><td ID="MedicationDuration_4">30</td><td ID="MedicationFormulaStrength_4">60 mg</td><td ID="MedicationDosageForm_4">capsule,delayed release(DR/EC)</td><td ID="MedicationDosageFormCode_4"></td><td ID="MedicationDosageDescription_4"></td><td ID="MedicationMedicationId_4">[id number]</td><td ID="MedicationAccount_4">[id number]</td><td ID="MedicationNpid_4">[id number]</td><td ID="MedicationAuthorFirstName_4">Jose Ramon</td><td ID="MedicationAuthorLastName_4">Constantine</td><td ID="MedicationTaxonomyCode_4">[id number]</td><td ID="MedicationTaxonomyDesc_4"> Nurse Practitioner</td><td ID="MedicationPhoneNumber_4">[phone]</td> [facility] ([facility]) duloxetine 60 MG Delayed Release Oral Capsule [Cymbalta] [facility]ym [facility] 12/19/2019 12:00:00 AM EDT 60 mg completed <td ID="MedicationRxNorm_6">815126</td><td ID="MedicationMedication_6">Cymbalta</td><td ID="MedicationRoute_6"></td><td ID="MedicationRouteConcept_6"></td><td ID="MedicationStartDate_6">12/19/2019</td><td ID="MedicationStopDate_6">12/02/2020</td><td ID="MedicationDosageFrequency_6"></td><td ID="MedicationDuration_6">30</td><td ID="MedicationFormulaStrength_6">60 mg</td><td ID="MedicationDosageForm_6">capsule,delayed release(DR/EC)</td><td ID="MedicationDosageFormCode_6"></td><td ID="MedicationDosageDescription_6"></td><td ID="MedicationMedicationId_6">[id number]</td><td ID="MedicationAccount_6">[id number]</td><td ID="MedicationNpid_6">[id number]</td><td ID="MedicationAuthorFirstName_6">Jose Ramon</td><td ID="MedicationAuthorLastName_6">Constantine</td><td ID="MedicationTaxonomyCode_6">[id number]</td><td ID="MedicationTaxonomyDesc_6"> Nurse Practitioner</td><td ID="MedicationPhoneNumber_6">[phone]</td> [facility] ([facility]) quetiapine 100 MG Oral Tablet QUEtiapine Fumarate 100 MG Oral Tablet (SEROquel) QUEtiapine Fumarate 100 MG Oral Tablet (SEROquel) 12/13/2019 12:00:00 AM EDT 200 mg Oral active Take 200 mg by mouth [facility] Propranolol Hydrochloride 10 MG Oral Tab let Propranolol HCl 10 MG Oral Tablet (INDERAL) Propranolol HCl 10 MG Oral Tablet (INDERAL) 12/13/2019 12:00:00 AM EDT 1 {tbl} Oral active Take 1 t ablet by mouth Two Times Daily Noon & [address] [place] [address] topiramate 100 MG Oral Tablet Topiramate 100 MG Oral T ablet (TOPAMAX) Topiramate 100 MG Oral Tablet (TOPAMAX) 12/13/2019 12:00:00 AM EDT 1 {tbl} Ora l active Take 1 tablet by mouth every [facility] [address] [place] [address] quetiapine 300 MG Oral Tablet QUEtiapine Fumarate 300 MG Oral Tablet (SEROquel) QUEtiapine Fumarate 300 MG Oral Tablet (SEROquel) 12/13/2019 12:00:00 AM EDT 2 {tbl} Oral active Take 2 tablets by mouth [facility] duloxetine 30 MG Delayed Release Oral Capsule duloxetine 12/13/2019 12:00:00 AM EDT 30 mg by mouth completed <td ID="MedicationRxNorm_5">313156</td><td ID="MedicationMedication_5">duloxetine</td><td ID="MedicationRoute_5">by mouth</td><td ID="MedicationRouteConcept_5">C08741</td><td ID="MedicationStartDate_5">12/13/2019</td><td ID="MedicationStopDate_5">12/19/2019</td><td ID="MedicationDosageFrequency_5">every morning</td><td ID="MedicationDuration_5"></td><td ID="MedicationFormulaStrength_5">30 mg</td><td ID="MedicationDosageForm_5">capsule,delayed release(DR/EC)</td><td ID="MedicationDosageFormCode_5"></td><td ID="MedicationDosageDescription_5"></td><td ID="MedicationMedicationId_5">[id number]</td><td ID="MedicationAccount_5">[id number]</td><td ID="MedicationNpid_5">[id number]</td><td ID="MedicationAuthorFirstName_5">Jose Ramon</td><td ID="MedicationAuthorLastName_5">Constantine</td><td ID="MedicationTaxonomyCode_5">[id number]</td><td ID="MedicationTaxonomyDesc_5"> Nurse Practitioner</td><td ID="MedicationPhoneNumber_5">[phone]</td> [facility] ([facility]) cetirizine hydrochloride 10 MG Oral Tabl et Cetirizine HCl 10 MG Oral Tablet (ZYRTEC) Cetirizine HCl 10 MG Oral Tablet (ZYRTEC) 12/13/2019 12:00:00 AM EDT 1 {tbl} Oral active Take 1 tablet by mouth e [facility] Oxybutynin chloride 5 MG Oral Tablet Oxy butynin Chloride 5 MG Oral Tablet (DITROPAN) Oxybutynin Chloride 5 MG Oral Tablet (DITROPAN) 2019 12:00:00 AM EDT 1 {tbl} Oral active Take 1 tablet by mouth every morning [facility] Prazosin 2 MG Oral Capsule Prazosin HCl 2 MG Oral Caps ule (MINIPRESS) Prazosin HCl 2 MG Oral Capsule (MINIPRESS) 12/13/2019 12:00:00 AM EDT 1 {cap natalie} Oral active Take 1 capsule by mouth e very evening [facility] duloxetine 30 MG Delayed Release Oral Ca psule DULoxetine HCl 30 MG Oral Capsule Delayed Release Particles (CYMBALTA) DULoxetine HCl 30 MG Oral Capsule Delaye d Release Particles (CYMBALTA) 12/13/2019 12:00:00 AM EDT 30 mg Oral active Take 30 mg by mouth [facility] dulox[facility] 60 MG Delayed Release Oral Ca psule DULoxetine HCl 60 MG Oral Capsule Delayed Release Particles (CYMBALTA) DULoxetine HCl 60 MG Oral Capsule Delaye d Release Particles (CYMBALTA) 12/13/2019 12:00:00 AM EDT 2 {capsule} Or al active Take 2 capsules by mouth nightly [facility] Levothyroxine Sodium 0.025 MG Oral Table t Levothyroxine Sodium 25 MCG Oral Tablet (SYNTHROID) Levothyroxine Sodium 25 MCG Oral Tablet (SYNTHROID) 12/13/2019 12:00:00 AM EDT 25 ug Oral active Take 25 mcg by mouth every morning before breakfast [facility] duloxetine 60 MG Delayed Release Oral Capsule duloxetine 11/15/2019 12:00:00 AM EDT 60 mg completed <td ID ="MedicationRxNorm_5">714591</td><td ID="MedicationMedication_5">duloxetine</td><td ID="MedicationRoute_5"></td><td ID="MedicationRouteConcept_5"></td><td ID="MedicationStartDate_5">11/15/2019</td><td ID="MedicationStopDate_5"></td><td ID="MedicationDosageFrequency_5"></td><td ID="MedicationDuration_5"></td><td ID="MedicationFormulaStrength_5">60 mg</td><td ID="MedicationDosageForm_5">capsule,delayed release(DR/EC)</td><td ID="MedicationDosageFormCode_5"></td><td ID="MedicationDosageDescription_5"></td><td ID="MedicationMedicationId_5">[id number]</td><td ID="MedicationAccount_5">[id number]</td><td ID="MedicationNpid_5">[id number]</td><td ID="MedicationAuthorFirstName_5">Jose Ramon</td><td ID="MedicationAuthorLastName_5">Constantine</td><td ID="MedicationTaxonomyCode_5">[id number]</td><td ID="MedicationTaxonomyDesc_5"> Nurse Practitioner</td><td ID="MedicationPhoneNumber_5">[phone]</td> [facility] ([facility]) Prazosin 2 MG Oral Capsule prazosin 01/03/2019 12:00:00 AM EDT 2 mg by mouth completed <td ID="Medicat ionRxNorm_5">839321</td><td ID="MedicationMedication_5">prazosin</td><td ID="MedicationRoute_5">by mouth</td><td ID="MedicationRouteConcept_5">A68964</td><td ID="MedicationStartDate_5">01/03/2019</td><td ID="MedicationStopDate_5">09/22/2020</td><td ID="MedicationDosageFrequency_5">at bedtime</td><td ID="MedicationDuration_5">30</td><td ID="MedicationFormulaStrength_5">2 mg</td><td ID="MedicationDosageForm_5">capsule</td><td ID="MedicationDosageFormCode_5"></td><td ID="MedicationDosageDescription_5"></td><td ID="MedicationMedicationId_5">[id number]</td><td ID="MedicationAccount_5">[id number]</td><td ID="MedicationNpid_5">[id number]</td><td ID="MedicationAuthorFirstName_5">Jose Ramon</td><td ID="MedicationAuthorLastName_5">Constantine</td><td ID="MedicationTaxonomyCode_5">[id number]</td><td ID="MedicationTaxonomyDesc_5">Nurse Practitioner</td><td ID="MedicationPhoneNumber_5">[phone]</td> [facility] ([facility]) Prazosin 2 MG Oral Capsule prazosin 01/03/2019 12:00:00 AM EDT 2 mg by mouth completed <td ID="Medicat ionRxNorm_4">038545</td><td ID="MedicationMedication_4">prazosin</td><td ID="MedicationRoute_4">by mouth</td><td ID="MedicationRouteConcept_4">Q72890</td><td ID="MedicationStartDate_4">01/03/2019</td><td ID="MedicationStopDate_4">10/03/2020</td><td ID="MedicationDosageFrequency_4">at bedtime</td><td ID="MedicationDuration_4">30</td><td ID="MedicationFormulaStrength_4">2 mg</td><td ID="MedicationDosageForm_4">capsule</td><td ID="MedicationDosageFormCode_4"></td><td ID="MedicationDosageDescription_4"></td><td ID="MedicationMedicationId_4">[id number]</td><td ID="MedicationAccount_4">[id number]</td><td ID="MedicationNpid_4">[id number]</td><td ID="MedicationAuthorFirstName_4">Jose Ramon</td><td ID="MedicationAuthorLastName_4">Constantine</td><td ID="MedicationTaxonomyCode_4">[id number]</td><td ID="MedicationTaxonomyDesc_4">Nurse Practitioner</td><td ID="MedicationPhoneNumber_4">[phone]</td> [facility] ([facility]) Insurance Providers Payer name Policy type / Coverage type Policy ID Covered republican ID Covered republican's relationship to cox Policy [employer] Plan Information [facility] Comm Plan Medicaid F [id number] SELF [id number] [facility] MEDICAID [id number] [place] [id number] [id number] SP [id number] [facility] [id number] SP [id number] [facility] I [id number] Self [id number] [facility] I [id number] Self [id number] [facility] I [id number] Self [id number] [facility]-Med[facility] [id number] [facility]-Medicaid [id number] ANS-Medicaid [id number] [facility]-Medicaid [id number] ANSI-Medicaid [id number] ANSI-Medicaid [id number] ANSI-Medicaid [id number] ANSI-Medicaid [id number] ANSI-Medicaid [id number] ANSI-Medicaid [id number] ANSI-Medicaid [id number] ANSI-Medicaid [id number] ANSI-Medicaid [id number] [facility] [id number] SP [id number] MEDICAID [id number] SP [id number] [facility] Health Maintenance Organization (HMO) [id number] Self [id number] [employer] COMM[employer]ITY [employer]AN MCDHMO [id number] SP [id number] [employer] COMMUNITY PLAN MCDHMO [id number] SP [id number] [facility] Community Plan Commercial [id number] Self [facility](MCAID) O [id number] S [id number] [facility] Commercial [id number] Self [facility] Community Plan Health Maintenance Organization (HMO) [id number] Self MEDICAID [id number] SP [id number] [employer](MCAID) P [id number] S [id number] STATE INSURANCE FUND [id number] SP [id number] SELF PAY UNAVAILABLE SP UNAVAILA [facility] FIREFIGHTER [facility] [id number] SP [id number] [employer] COMMUNITY PLAN MCDHMO [id number] SP [id number] [facility](MCAID) O [id number] S [id number] [facility] COMMUNITY PLAN MCDHMO [id number] SP [id number] [facility] COMMUNTY PLAN [id number] [facility] COMMUNITY PLAN XIX -RECURRING [id number] 18 [id number] [facility] AMERICHOICE XIX -HMO [id number] 18 [id number] ANSI-Medicaid [id number] Problems, Conditions, and Diagnoses Code Display Name Description Problem Type Effective Dates Data Source(s) T85.192A Other mechanical complicatio n of implanted electronic neurostimulator of spinal cord electrode (lead), initial encounter Other mechanical complication of implanted electronic neurostimulator of spinal cord electrode (lead), initial encounter Diagnosis 04/24/2020 08:19:17 AM [facility] R69 Illness, unspecified Illness, unspecified Diagnosis 02/16/2020 05:32:00 AM [facility] Back pain Back pain Diagnosis 02/16/2020 05:32:00 AM [facility] M54.5 Low back pain Low back pain Diagnosis 02/13/2020 03:33:28 PM [facility] F10.10 Alcohol abuse, uncomplicated Alcohol Use Disorder, Mil d Condition 10/17/2020 12:00:00 AM EDT [facility] ([facility]) F40.01 Agoraphobia with panic disorder Agoraphobia with panic disorder Condition 10/17/2020 12:00:00 AM EDT [facility] ([facility]) F31.81 Bipolar II disorder Bipolar II Disorder Condition 0 10/17/2020 12:00:00 AM EDT [facility] ([facility]) F33.41 Major depressive disorder, recurrent, in partial remission Major Depressive Disorder, Recurrent episode, In partial remission Condition 10/17/2020 12:00:00 AM EDT [facility] ([facility]) F43.12 Post-traumatic stress disorder, chronic Post-traumatic stress disorder, chronic Condition 10/17/2020 12:00:00 AM EDT [facility] ([facility]) G47.30 [id number] Sleep apnea, unspecified type Problem 05/03/2020 12:00:00 AM EST [facility]CW1 ([facility]) F17.200 [id number] Smoking Problem 02/14/2020 12:00:00 AM ES T eCW1 ([facility]) Z68.41 [id number] Body mass index [BMI]40.0-44.9, adult Pro blem 02/14/2020 12:00:00 AM EST eCW1 ([facility]) E66.01 [id number] Morbid (severe) obesity due to excess antonella ories Problem 02/14/2020 12:00:00 AM EST eCW1 ([facility]) G89.28 Chronic postoperative pain Other chronic postprocedura l pain Problem 01/18/2020 12:00:00 AM EST eCW1 ([facility]) G89.29 Chronic pain Other chronic pain Problem 01/03/2020 12:0 0:00 AM EDT eCW1 ([facility]) Surgeries/Procedures Procedure Description Date Indications Data Source(s) Extended Individual Psychotherapy - 45 min 10/17/2020 12:00:00 AM EDT - 10/17/2020 12:00:00 AM EDT [facility] ([facility]) Extended Individual Psychotherapy - 45 min 12:00:00 AM EDT [facility] ([facility]) Brief Individual Psychotherapy - 30 min 09/14/2020 12:00:00 AM EDT - 09/14/2020 12:00:00 AM EDT [facility] ([facility]) Brief Individual Psychotherapy - 30 min 09/14/2020 12: 00:00 AM EDT [facility] ([facility]) Extended Individual Psychotherapy - 45 min 08/30/2020 12:00:00 AM EDT - 08/30/2020 12:00:00 AM EDT [facility] ([facility]) Extended Individual Psychotherapy - 45 min 12:00:00 AM EDT [facility] ([facility]) OFFICE OUTPATIENT VISIT 15 MINUTES 08/28 12:00:00 AM EDT - 08/28/2020 12:00:00 AM EDT [facility] ([facility]) OFFICE OUTPATIENT VISIT 15 MINUTES 08/28/2020 12:00:00 AM EDT [facility] ([facility]) Extended Individual Psychotherapy - 45 min 08/16/2020 12:00:00 AM EDT - 08/16/2020 12:00:00 AM EDT [facility] ([facility]) Extended Individual Psychotherapy - 45 min 12:00:00 AM EDT [facility] ([facility]) OFFICE OUTPATIENT VISIT 15 MINUTES 08/14 12:00:00 AM EDT - 08/14/2020 12:00:00 AM EDT [facility] ([facility]) OFFICE OUTPATIENT VISIT 15 MINUTES 08/14/2020 12:00:00 AM EDT [facility] ([facility]) Brief Individual Psychotherapy - 30 min 07/31/2020 12:00:00 AM EDT - 07/31/2020 12:00:00 AM EDT [facility] ([facility]) Brief Individual Psychotherapy - 30 min 07/31/2020 12: 00:00 AM EDT [facility] ([facility]) OFFICE OUTPATIENT VISIT 15 MINUTES 06/14 12:00:00 AM EDT - 06/14/2020 12:00:00 AM EDT [facility] ([facility]) Psychotherapy ADD ON - 30 Minutes 06/14/2020 12:00:00 AM EDT [facility] ([facility]) OFFICE OUTPATIENT VISIT 15 MINUTES 06/14/2020 12:00:00 AM EDT [facility] ([facility]) OFFICE OUTPATIENT VISIT 15 MINUTES 06/07 12:00:00 AM EDT - 06/07/2020 12:00:00 AM EDT [facility] ([facility]) OFFICE OUTPATIENT VISIT 15 MINUTES 06/07/2020 12:00:00 AM EDT [facility] ([facility]) Extended Individual Psychotherapy - 45 min 06/07/2020 12:00:00 AM EDT - 06/07/2020 12:00:00 AM EDT [facility] ([facility]) Extended Individual Psychotherapy - 45 min 12:00:00 AM EDT [facility] ([facility]) TEMPMHCTelemed 30" Psychotherapy 12:00:00 AM EST - 05/10/2020 12:00:00 AM EST [facility] ([facility]) TEMPMHCTelemed 30" Psychotherapy 05/10/2020 12:00:00 A M EST [facility] ([facility]) MHC Telemed E/M Lvl 3--Est pt 04/25/2020 12:00:00 AM EST - 04/25/2020 12:00:00 AM EST [facility] ([facility]) Psychotherapy ADD ON - 30 Minutes 04/25/2020 12:00:00 AM EST [facility] ([facility]) MHC Telemed E/M Lvl 3--Est pt 04/25/2020 12:00:[address] [facility] ([facility]) Brief Individual Psychotherapy - 30 min 04/09/2020 12:00:00 AM EST - 04/09/2020 12:00:00 AM EST [facility] ([facility]) Brief Individual Psychotherapy - 30 min 04/09/2020 12: 00:00 AM EST [facility] ([facility]) Extended Individual Psychotherapy - 45 min 03/29/2020 12:00:00 AM EST - 03/29/2020 12:00:00 AM EST [facility] ([facility]) Extended Individual Psychotherapy - 45 min 12:00:00 AM EST [facility] ([facility]) RADEX SPINE LUMBOSACRAL 2/3 VIEWS <td>XR SPINE LUMBAR 2-3 VIEWS 45553</td><td>Routine</td><td>02/16/2020 2:08 PM EST</td><td></td><td> </td> 02/16/2020 02:08:30 PM [facility] FLUOROSCOPY SPX <1 HOUR PHYSICIAN TIME <td>FLUORO NON- RAD PROC-OR 44914</td><td>Routine</td><td>02/16/2020 10:19 AM EST</td><td> Diagnosis unknown</td><td> </td> 02/16/2020 10:19:23 AM EST Diagnosis unknown [facility] Diagnosis unknown POCT ISTAT BHCG <td>POCT ISTAT BHCG</td><td> Routine</td><td>02/16/2020 6:57 AM EST</td><td></td><td> </td> 02/16/2020 06:57:00 AM [facility] CONFIRMATORY TYPE <td>CONFIRMATORY TYPE</td><t d>Routine</td><td>02/16/2020 6:45 AM EST</td><td></td><td> </td> 02/16/2020 06:45:00 AM [facility] MHC Telemed E/M Lvl 3--Est pt 02/14/2020 12:00:00 AM EST - 02/14/2020 12:00:00 AM EST [facility] ([facility]) Psychotherapy ADD ON - 30 Minutes 02/14/2020 12:00:00 AM EST [facility] ([facility]) MHC Telemed E/M Lvl 3--Est pt 02/14/2020 12:00:[address] [facility] ([facility]) XR CHEST FRONTAL AND LATERAL 37831 <td>XR CHEST FRONTA L AND LATERAL 51484</td><td>Routine</td><td>02/13/2020 3:50 PM EST</td><td> Low back pain, unspecified back pain laterality, unspecified chronicity, unspecified whether sciatica present</td><td> </td> 02/13/2020 03:50:25 PM EST Low back pain, unspecified back pain lat erality, unspecified chronicity, unspecified whether sciatica present [facility] Low back pain, unspecified back pain lat erality, unspecified chronicity, unspecified whether sciatica present LAB RESULTS (OUTSIDE/HISTORICAL) <td>LAB RESULTS (OUTSIDE/HISTORICAL)</td><td></td><td>02/13/2020 12:31 PM EST</td><td></td><td></td> 02/13/2020 12:31:42 PM EST [facility] CARDIAC REPORT <td>CARDIAC REPORT</td><td>< /td><td>02/13/2020 12:30 PM EST</td><td></td><td></td> 02/13/2020 12:30:40 PM EST [facility] CARDIAC REPORT <td>CARDIAC REPORT</td><td>< /td><td>02/08/2020 3:53 PM EST</td><td></td><td></td> 02/08/2020 03:53:18 PM EST [facility] CARDIAC REPORT <td>CARDIAC REPORT</td><td>< /td><td>02/08/2020 3:52 PM EST</td><td></td><td></td> 02/08/2020 03:52:38 PM EST [facility] CARDIAC REPORT <td>CARDIAC REPORT</td><td>< /td><td>02/08/2020 3:51 PM EST</td><td></td><td></td> 02/08/2020 03:51:28 PM EST [facility] TEMPMHCTelemed 30" Psychotherapy 020 12:00:00 AM EST - 01/27/2020 12:00:00 AM EST [facility] ([facility]) TEMPMHCTelemed 30" Psychotherapy 01/27/2020 12:00:00 A M EST [facility] ([facility]) Extended Individual Psychotherapy - 45 min 12/30/2019 12:00:00 AM EDT - 12/30/2019 12:00:00 AM EDT [facility] ([facility]) Extended Individual Psychotherapy - 45 min 0 12:00:00 AM EDT [facility] ([facility]) MHC Telemed E/M Lvl 3--Est pt 12/19/2019 12:00:00 AM EDT - 12/19/2019 12:00:00 AM EDT [facility] ([facility]) MHC Telemed E/M Lvl 3--Est pt 12/19/2019 12:00:00 AM E DT [facility] ([facility]) Extended Individual Psychotherapy - 45 min 12/09/2019 12:00:00 AM EDT - 12/09/2019 12:00:00 AM EDT [facility] ([facility]) Extended Individual Psychotherapy - 45 min 0 12:00:00 AM EDT [facility] ([facility]) Results ID Date Data Source [id number] 12/24/2020 12:00:00 AM EDT [facility] Name Value Range Interpretation Code Description Data Luzma rce(s) Supporting Document(s) SARS-COV 2 PCR POSITIVE [facility] This lab was ordered by [id number] and reported by [facility]. ID Date Data Source [id number] 12/24/2020 12:00:00 AM EDT [facility] Name Value Range Interpretation Code Description Data Luzma rce(s) Supporting Document(s) SARS-CoV-2 (COVID-19) RNA [Presence] in Respiratory specimen by CRISTIAN with probe detection Detected [facility] This lab was ordered by [facility] and r eported by [facility]. ID Date Data Source [id number] 05/03/2020 01:50:00 PM EST [facility] Name Value Range Interpretation Code Description Data Luzma rce(s) Supporting Document(s) SARS COVID ANTIGEN NEGATIVE [facility] This lab was ordered by [facility] reported by [facility]. ID Date Data Source [id number] 04/24/2020 03:21:20 PM EST [facility] Name Value Range Interpretation Code Description Data Luzma rce(s) Supporting Document(s) Progress Note [facility] ZDIQBq6qNjXSPxJv06/RRWpvKRTps6FySPijDTe0VIqzJSEmU6UmOON8rE3fFNM7OZlJSoFsWsHyChE0 lbm [file] AgICAgICAgICAgICAgICAgICAgICAgICAgICAgICAgICAgICAgICAgICAgICAgICAgICAgICAgICAgIC AgICAgICAgICAgICAgICAgDQogICAgICAgICAgICAgICAgICAgICAgICAgICAgICAgICAgICAgICAgIC AgICAgICAgICAgICAgICAgICAgICAgICAgICAgICAg ICAgICAgICAgICAgICAgICAgICAgICAgICAgDQogICAgICAgICAgICAgICAgICAgICAgICAgICAgICAg ICAgICAgICAgICAgICAgICAgICAgICAgICAgICAgICAgICAgICAgICAgICAgICAgICAgICAgICAgICAg ICAgICAgICAgDQogICAgICAgICAgICAgICAgICAgIC AgICAgICAgICAgICAgICAgICAgICAgICAgICAgICAgICAgICAgICAgICAgICAgICAgICAgICAgICAgIC AgICAgICAgICAgICAgICAgICAgDQogICAgICAgICAgICAgICAgICAgICAgICAgICAgICAgICAgICAgIC AgICAgICAgICAgICAgICAgICAgICAgICAgICAgICAg ICAgICAgICAgICAgICAgICAgICAgICAgICAgICAgDQogICAgICAgICAgICAgICAgICAgICAgICAgICAg ICAgICAgICAgICAgICAgICAgICAgICAgICAgICAgICAgICAgICAgICAgICAgICAgICAgICAgICAgICAg ICAgICAgICAgICAgDQogICAgICAgICAgICAgICAgIC AgICAgICAgICAgICAgICAgICAgICAgICAgICAgICAgICAgICAgICAgICAgICAgICAgICAgICAgICAgIC AgICAgICAgICAgICAgICAgICAgICAgDQogICAgICAgICAgICAgICAgICAgICAgICAgICAgICAgICAgIC AgICAgICAgICAgICAgICAgICAgICAgICAgICAgICAg ICAgICAgICAgICAgICAgICAgICAgICAgICAgICAgICAgDQogICAgICAgICAgICAgICAgICAgICAgICAg ICAgICAgICAgICAgICAgICAgICAgICAgICAgICAgICAgICAgICAgICAgICAgICAgICAgICAgICAgICAg ICAgICAgICAgICAgICAgDQogICAgICAgICAgICAgIC AgICAgICAgICAgICAgICAgICAgICAgICAgICAgICAgICAgICAgICAgICAgICAgICAgICAgICAgICAgIC DlRVOgGSDiFOLuISCfECEtDQNdMBSgKHIyASk5I4yiEFIvMKUlDG1nPGs0Ax2+UDbQVlAuRFE5baTbwC 9FBT3tt9ZhMTafNVGgk8BvWIo9SR6KGXPaGLmlVG5Y ITcjid5RDMSnAKQetZPEa9gnPzWqZBU6GEVzXlbaXC8DJVNxE9nymoDzUTBvHZUXFLyyAIBUKZzyUVWD CH9WZtGxH4NlkR14BLGTBu0+GFnmnbZcYvpQCdF0OURfu4FcLCb8HP0URGUrIzrwh4NfXbBmLNVVPLgf BW7FHHI6AZXzGTXdPh4SVAZrE159khCoQA6YBh5PSw XeTC3cff1JTdEbCSFgEqrPLeu5OCipRW1HfZDlFJbMqh4wfnKjbfOKz5QhqkUnbJSTIRKtvdG6FS7aN2 0zgGyfGNNMJAR4CGVqQV0bSMNiWPHzVhXkVDIFVF8SGQGtOJRmyVMjOFRqZRNERG2KSZruQQI1QYYnwj QsoWJjLAidSS3AGZAvdpHbZvfuIODVHEn+Wm4TMR6k h5NqTAouTKUtWX1mlv7YIKwEFnXxH6D6eFUsO4L5LUaqNj0HJBVjRYPiHrbnKOTSLDhwQD1MJK2otjC8 PA6FcRTiFANbMOYkzJDgKSg1O66igWRyYPxdHO1PNDE+Devin+Op4WMTYtVOVkNKWxVhYqHNZYIhHmS1Yi G3ZZn6KjE7QxQB16xIyyouApHOloLS9IEO0gXUJhZY JUNF4LcERyeP4beaWfDTKjPAHRDaApP02eqSFrLHXrQSJ2YOEhSe1CQHGtG8OgghGlcDsefwUlZEHyOE HQAQ7UAGjhjkJmxDCjwSzqCK48xEpqPY6LVw7NDxBjZK4xjm6HqUEpPe4EJACaHt7VMOOtAYQrTBUpIV L6GFAaTpJpPLloIQXgQWHmLOL0NDUoMXAtPE3DNdVq NPThDecmHLCvEVWeKXOuif9SFRRbLNUdDNL3ZdNaZNKzWHKrGPbzATSzLKZnXEL7XJVqFXWzMO1BHuCx PKKaVWIzHOVyDRJyXWXeoc7GMZDvTFJhDTTgBLJmMXXrANUxVCgwWXEyWHX3UrInMCXbZKQyKQ0ANgTp RGFsGSo4HVycSBMdBEUcuz2HWURgELXxDAQxQLLoDR XiACPaUQuvVMXwOHS8MfM8NZAxSSOzAW5FCsVcINEfVTF2QXteJCPuRJRgua2KPVToGRBaVVy8PBNoML AwKMJeBFghVLIlZSJmXXx7ZYPwRIKyCH7TMqCoPFNaWKB9YhhsNBIzDKRnnh1IREHvKLWyDaDeMJRhQB YeIAPuJTcgVCMzCCPfUnU0QKNkNOVaUP4FQaOmEKFk DqE9YIdnVPNqMUYxyd7QCOAiGHTfWYT9BwYmZQOvYOUbKPvdHODgZEI8ZxssBJYkDLZrWU8HRrIdYOXa UmN2SHXsZBBvGHTkmt3TKZLtXXWxKHU4SoCgPKWwHBQgJCblNGXqEWL0PbWvALOaALTmEC4FGoIyGGOl QyQ1ZGPaEQLnCAHbpq3FRELqRLJoDJn7LkPtDHVmCK ZlQXznPAUeLOV8SCS2BTDkINSmPQ5NFlHiMEIzYplcFMZsKPTpDKTiij5JKYPtOTWqVcK4IzKdMKEaEG WrTMhuOXPqKKV0TeL0GZUrERGmBI9MKpOiHODbAnqwHtEnDPUnOYNfyj6NHRWsJJYvOMQ4QfJqJAOzIQ AhDFfrYMZzQIO0Wxa8JTGwALIsQT0QQlUiSYzzUUJR Wrw6UHhaF1h2UBRbWf4HA1Gnu7RhEmViJHFYFIvaYP2gdcTzLTPsXe6KF1hZGgr8FhJvTJq2RUStSKA6 XGGyGBUeMbR3RZC9FnzqMsFkDR1fOGbgA5J9TQJ1PRQ1HzzaLTI8TKXdBGG7IfuxHWLrQiRhUqVlKS6O Sw7YBkH2IZZ0cXMcTc8NCqb9GBOTNwXsLU8HZNd= ID Date Data Source [id number] 03/24/2020 12:00:00 AM EST [facility] Name Value Range Interpretation Code Description Data Luzma rce(s) Supporting Document(s) SARS-CoV2 Rapid Antigen Negative [facility] This lab was ordered by [facility] and reported by [facility]. ID Date Data Source [id number] 02/28/2020 04:30:26 PM EST [facility] XR THORACIC SPINE AP AND LATERALFINAL RE SULTInterpreted by:Mickey Latif MDINDICATION: 35-year-old female, evaluate DCS lead status post fall.TECHNIQUE: AP and lateral views of the thoracic spine were obtained.COMPARISON: Lumbar spine radiographs dated 02/16/2020.FINDINGS: A dorsal column stimulator is seen at the T7 level, in unchanged position from prior study. There is partially visualized anterior spinal fusion hardware within the lower cervical spine. Of the visualized spine, there is no evidence of acute fracture, subluxation and/or dislocation. The vertebral body heights and disc spaces are well maintained. The alignment is anatomical. The paravertebral soft tissues were unremarkable.IMPRESSION: 1. Dorsal column stimulator is present at T7 level, in unchanged position from prior study.2. No evidence of acute pathology.This document has been electronically signed by Toy Peres MD on 02/28/2020 4:28 PM Name Value Range Interpretation Code Description Data Luzma rce(s) Supporting Document(s) ID Date Data Source [id number] 02/28/2020 03:45:02 PM EST [facility] Name Value Range Interpretation Code Description Data Luzma rce(s) Supporting Document(s) Progress Note [facility] JXRVHp5eOyJAAjHf81/XJHgdIBIir1DzXNwqUFy1XNqhAXTvT6KuTVP1hE9xAUA8USeIHkHbAtNxDjW4 lbm [file] Q2VZVeOMItQlRsSjPfPRW1Ux9gMEJSBw7+NHpbvXHowVnqKGESEdJ1CaS7RKonYEQROx6K ID Date Data Source [id number] 02/28/2020 03:37:08 PM [facility] XR ABDOMEN AP SUPINE AND LATERAL VIEW 74 019FINAL RESULTInterpreted by:Jeanne Beckett MDINDICATION: Status post fall. Assess spinal canal stimulator lead and wire.TECHNIQUE: Frontal AP and lateral views of the abdomen were obtained.COMPARISON: Lumbar spine radiographs from 02/16/2020.FINDINGS: The visualized small and large bowel are nondilated without air fluid levels. A mild amount of stool is noted throughout the colon. Limbus L3 vertebral body. A battery pack is noted in the soft tissues overlapping the right lower quadrant posteriorly. A wire extends from the battery pack toward the spinal column and overlaps the spinal column at the T11 vertebral level and extends cranially out of the kwboc-ii-rjgt. The wire superimposed over the battery pack is suboptimally evaluated. The remainder of the wire appears intact.IMPRESSION:1. Battery pack overlapping the right lower quadrant posteriorly. 2. Wire extends from the battery pack and overlaps the spinal column at the T11 vertebral level and extends cranially out of the mmhxw-pr-zmtz. 3. Wire superimposed the battery pack is suboptimally evaluated. The remainder of the wire appears intact.This document has been electronically signed by Jeanne Beckett MD on 02/28/2020 3:34 PM Name Value Range Interpretation Code Description Data Luzma rce(s) Supporting Document(s) ID Date Data Source [id number] 02/22/2020 10:01:21 AM [facility] Name Value Range Interpretation Code Description Data [facility] rce(s) Supporting Document(s) Operative Note [facility] THYYIn7cVpWMSkLi94/BOEejDJLdg9HmZVicPIb8NHiyRHAwI7BaEPJ6uV8dLZP6KWmOFxEfZoYvAyW1 [facility] LrQmxFCtGrKTYdXunEDpAsHKluKtnjnLWaJO2TgTB2KNNfI42tTZLoHVTiH5BcJBX1Ioq+Er8DPTBquR DyYC5UPhnD0E3zltz3KW4j0L0VvNwLQ1Z1zzeN2LuNTajlVybS6ruHvRzFHx0f25mL8DIAp1/VXrSayf qrV+V6y4D6VuOKlQid3hPcwAJZ//qH9UrB92sg1q/6 z1nhmBls/voXUU/Taj2t/fLDYwuEQ0xdDCP4xpU3C70CtDGfhYqzJG4hgTgkOi/oXD8CwxcFYvrGTkXW j6K8trgO8hlt5kcW9JlaiMAlMEBeF76Dej8BvZnWY9UVXweYUtVu5ISjJGWOSaIc6OToJzMW0SIwA0cf BhD399brtLfYQroi/iyjSDnv43gTxC2m+rZIxZVb/B raITRRmvhDPj8oFqSbR8uJgJmiYb8Jd2L/ugtai3A30/n31DB75rj43bUsPDHIwsfCE5RrsoqCaH4EKz OEP8xlRzTzMyya2ptqSR9dyVAw6Jx9CP4wk06HGLk/jqpMual658i2H71nvHVlNzKEwoRJ6Z+Y9Z1bNW 3gDdmVfK9ticATnR/i9R8JgnuoJQm86Ic8xe3BS9vb CjIhrIIgvhXSRgeMJiWIoh2NKscEJIlwSb1cdB8S6T3B6JztyKIhqERYRKEPYUwgsZxxnKdcdoNP4XLc 0HygcVEebnDlsrQENRqXLid6HcZFZEdxaPMx5y2UivRvA1KhHKw7ddzXyjJFZN+LeoubGgHyOEWh3Kx5 2hnSrl9MYbtShtXee+hqJXIMBKkk0afya5RsKKieEK J9Yv27d9dloHohWte4rmE+sQsvEdAnzIxLSc2G4SXQLnYsxuxrLEm1y9QCSHfPwKFJCR8N2oAjfaJ9nM tarah+P4G/46f6wAM+rdwnT5L1F+W5QiSd8Q3zfKLVrfX2PjCuYGkj+N8w2OigT+MnphhjfgBJdh125cC72 m+EZ2w4b62JVGJTMCIy8nuNA00llnEhT+hWspCFbWF Weight Clerk/Z9zTZYQrs4RZQSCCnSC0LzLp17mdMSeJGrqVqxUkwZD+QgqQfFEZZAFMjGY3XgpIsZxQusmlNeS9 [file] kp2Ilggofe0pUOzjr5PdnmMZ6seubkUxBLuqsfteTs vFI4wQP5D/xlq0r0BHyMNaRgLYU2vcUpmQ1XTU1kg0CuIGx4DQGbj3PsIYbaNIc2XPslMSWeQ8N2uBAs CMGhWI4YHPYkES0RQWTcktHdEsXqNXOEVjHqLZChWbQaf7WsZ8RiHROiCTHSFIdcQVBgG70aUMceEb79 PLnrOGImFuPuWYd4Lm2FKrQdGMDfP98kpRBlfQGiUI UcEOARJcFzWNQkM5JfzVVfYSujT4ImI2BbYQ8thPOeGY4rqMOzG3VeT6DpbatvQRXAMlImJUVhORmbGB AvSyBmYWxzZSA+Ed8CECL+Wn4HHK3oq2SzBYp3ZHOeg3ObDQjfVQd6Z0ZezGPbfgJtZpxvoVHZIZNdNC KwG7hcltl4vTHlIxDtCl8VVwEqp1SePNVpCBaJlk1r HFYsxcCA31DM/9Mcn2fQiofdwaEfRC6nuyiPZAoX18RvxuDSXSZhsTSx7hV/De Dios/IhtXt6D3xM3dStIRH [file] ICAgICAgICAgICAgICAgICAgICAgICAgICAgICAgIC AgICAgICAgICAgICAgICAgICAgICANCiAgICAgICAgICAgICAgICAgICAgICAgICAgICAgICAgICAgIC AgICAgICAgICAgICAgICAgICAgICAgICAgICAgICAgICAgICAgICAgICAgICAgICAgICAgICAgICAgIC AgICANCiAgICAgICAgICAgICAgICAgICAgICAgICAg ICAgICAgICAgICAgICAgICAgICAgICAgICAgICAgICAgICAgICAgICAgICAgICAgICAgICAgICAgICAg ICAgICAgICAgICAgICANCiAgICAgICAgICAgICAgICAgICAgICAgICAgICAgICAgICAgICAgICAgICAg ICAgICAgICAgICAgICAgICAgICAgICAgICAgICAgIC AgICAgICAgICAgICAgICAgICAgICAgICANCiAgICAgICAgICAgICAgICAgICAgICAgICAgICAgICAgIC AgICAgICAgICAgICAgICAgICAgICAgICAgICAgICAgICAgICAgICAgICAgICAgICAgICAgICAgICAgIC AgICAgICANCiAgICAgICAgICAgICAgICAgICAgICAg ICAgICAgICAgICAgICAgICAgICAgICAgICAgICAgICAgICAgICAgICAgICAgICAgICAgICAgICAgICAg ICAgICAgICAgICAgICAgICANCiAgICAgICAgICAgICAgICAgICAgICAgICAgICAgICAgICAgICAgICAg ICAgICAgICAgICAgICAgICAgICAgICAgICAgICAgIC AgICAgICAgICAgICAgICAgICAgICAgICAgICANCiAgICAgICAgICAgICAgICAgICAgICAgICAgICAgIC AgICAgICAgICAgICAgICAgICAgICAgICAgICAgICAgICAgICAgICAgICAgICAgICAgICAgICAgICAgIC AgICAgICAgICANCiAgICAgICAgICAgICAgICAgICAg ICAgICAgICAgICAgICAgICAgICAgICAgICAgICAgICAgICAgICAgICAgICAgICAgICAgICAgICAgICAg ICAgICAgICAgICAgICAgICAgICANCiAgICAgICAgICAgICAgICAgICAgICAgICAgICAgICAgICAgICAg ICAgICAgICAgICAgICAgICAgICAgICAgICAgICAgIC AgICAgICAgICAgICAgICAgICAgICAgICAgICAgICANCjw/fTRfJ8hsjYGkvcM1G9mcBt8ZMv4WWF8fa1 TfNXHjPTjufqBeGnmYIhSrVXGqJpeIFhv8LStxAS0BiDEjL2OpF6ZyRNjmPD0SZHKiZAXsbOImFEHyVU OyWsX5GYXeWXdiIQ8EuLQqVJieATTwBAYvHoUtJNXp SA4HEEMfU767izNdPi2LYg4MKmXdYE0qoy2BLZduQRLrMfkGZta9GHjfFU0PuXIjuPXgNMYsZIDWDgZf M8zav3ZcJiHjFDUQGLbbHX2Hy9RuvAKuGBb+Qo1IWG1to6NgMLjoCRBwNT0tiz6OAOzZPkIyJ0HhlHvf TG2xHANfqLw0QMILl9GjEBL7MCJrZRxekvIqfrSGWG VxLJoytMerFOHxZSRgDAAnBf5gXZShNEKtLwQ7RUWDEF9FIJMzFRAvrXRzAXPlNFCHFT3LWMdnQTU6OH RdtwGmzBGkINlgBD4CCNDylfOaRIzyLOPPVFk+Tw4SVP4mv9VjQPhxOLWwWX0ogn6KAUvYFpVnA8N0cE RxF7I0CCdfYf0JVLKrSRAkUZdiFIHOSZbvOC1LDX8m xiU3ZD2CdIHyITSvYTIbvOPhXGp4W69kjILeBShcAP1VCEE+Devin+Kx5INVRwTLPdGGAlDhUgPNCKUkGg D9FoW3CIy4WfO5BsIY22hFeuavHiNXwzBA1JKX7zKTLsHIFSDZ9FkKIhvT7sciNbWIVoEOPLYmThZ76e rFHfHXFpZWK6GAHiTj1YWROsQ1ZpmtGiuWrsjcXrZL AeANRZZJ3OKNlahtVclOJpaFucLK73qEhqWS1AMy2IAnZkNG9zkj0VpVQkMb0CSFFdKx4HVIOlNDVbEN JtTMK8KCIbBaJjGCrbWDPaFQTcLXY9FMFrIQBzYG9JZoXxWUCgBTSdUDFrJXRpOVAjzw2YRDDlJZCtUk o2WyUnQJUhXHJtWEvgWMBqFYHnKKV3VNWmJFJnNI2C IlZmZHGmLUHcPyKzUIPyDKEgwx5URWLhJOJkNgZ2BUCqHZZgPDWhDPgaXPQnUSI8PPQeFAAuGAFzGS7T CyAxJMZpMXdxQpQjEKWzCRXzlj4TZCWuSXQsCNCyGlRzLTRzRDSrELbzEEMbNNT4AmG0SFVfJIUpNU0L ZnCzNQWoJVu5FNLcUURdVOMdvu5GGPXfVMGmVMW0DA XgEGKtCVFtGBjpXGUoXOG0AhJmYYXiVGPuAA9ACoVyXIEkVRz4SRmwYMIdVRFmed8BLUOjTHZyQNcaOC EjNTPoQBPlSKggFPNuVPGhXJB6KYQcOMPfVK5UZiUnWKYsUBDuXRshAIEeFAGmky8ALJFySPNcOQHfHz UoBOPuAZTaYIbzNAYxZHOrWSQ3MVBpYTUpNE0FKsRe YHLbKGRuGvptERGdVCLlwu7QIWEaRYLnIsO1XVToNCItDLRyVAf8yaFtyGFdKKi9CP8TW7QquzToHyBF Lh2Jw335PRRbXFTbJi4EC9jsKs9mGMXsNXALKq8DNDm9BDiwHRTmGKZ5COIdUFW3ABVzPzKiZnx1QjQ5 AIC9YeY+VFxmTWW0WJRvIZTnXxDxGwJdDZZwCNVcOH H1AlLaXpX6LX1bBFTRYb3+TAfohHQlrMvbBVZGLaHoDKT9ZFpnFDFHEd4U ID Date Data Source [id number] 02/16/2020 06:44:55 PM [facility] Name Value Range Interpretation Code Description Data Luzma rce(s) Supporting Document(s) Progress Note [facility] KWGLTh1wJtMMDxYq35/DYKdoROZui3XbSAywTUd8URjiCJIaJ7IfKLI9oO7pHCJ4HRfYKoAsRyEuRuGd lbm [file] ICAgICAgICAgICAgICAgICAgICAgICAgICAgICAgICAgICAgICAgICAgICAgICAgICAgICAgICAgICAg ICAgICAgICANCiAgICAgICAgICAgICAgICAgICAgIC AgICAgICAgICAgICAgICAgICAgICAgICAgICAgICAgICAgICAgICAgICAgICAgICAgICAgICAgICAgIC AgICAgICAgICAgICAgICAgICANCiAgICAgICAgICAgICAgICAgICAgICAgICAgICAgICAgICAgICAgIC AgICAgICAgICAgICAgICAgICAgICAgICAgICAgICAg ICAgICAgICAgICAgICAgICAgICAgICAgICAgICANCiAgICAgICAgICAgICAgICAgICAgICAgICAgICAg ICAgICAgICAgICAgICAgICAgICAgICAgICAgICAgICAgICAgICAgICAgICAgICAgICAgICAgICAgICAg ICAgICAgICAgICANCiAgICAgICAgICAgICAgICAgIC AgICAgICAgICAgICAgICAgICAgICAgICAgICAgICAgICAgICAgICAgICAgICAgICAgICAgICAgICAgIC AgICAgICAgICAgICAgICAgICAgICANCiAgICAgICAgICAgICAgICAgICAgICAgICAgICAgICAgICAgIC AgICAgICAgICAgICAgICAgICAgICAgICAgICAgICAg ICAgICAgICAgICAgICAgICAgICAgICAgICAgICAgICANCiAgICAgICAgICAgICAgICAgICAgICAgICAg ICAgICAgICAgICAgICAgICAgICAgICAgICAgICAgICAgICAgICAgICAgICAgICAgICAgICAgICAgICAg ICAgICAgICAgICAgICANCiAgICAgICAgICAgICAgIC AgICAgICAgICAgICAgICAgICAgICAgICAgICAgICAgICAgICAgICAgICAgICAgICAgICAgICAgICAgIC AgICAgICAgICAgICAgICAgICAgICAgICANCiAgICAgICAgICAgICAgICAgICAgICAgICAgICAgICAgIC AgICAgICAgICAgICAgICAgICAgICAgICAgICAgICAg ICAgICAgICAgICAgICAgICAgICAgICAgICAgICAgICAgICANCiAgICAgICAgICAgICAgICAgICAgICAg ICAgICAgICAgICAgICAgICAgICAgICAgICAgICAgICAgICAgICAgICAgICAgICAgICAgICAgICAgICAg ICAgICAgICAgICAgICAgICANCjw/mQXcX6jwvXHreq C1J2rvSn8RHl0CSN9nu1NdXDPqNUohckMsLyaARrAgPOPrKtgCOlz9WRikDJ8MoBMoQ0BmG8QxPRddAC 6UPMOjQMYyrNOzATJvLTWzIlN9HYZwWPrpSK7TrYFvBMfeQOGxHNFvWV8VKMUjM400snZgQR0RBf2PRu TdAR9pma8ZCEZvGSVvYbkBPpj7UPhrSC8GrAXcyYGd FOZlCRAYKmMrC6keg7BbCJNiZUOXVYhzYN4Pn4EfyAYtEGj+Zn7ETK1jj0PmEWtxJIJlFS4izt1ROAoQ VpDxP9CzhJlrDNAhi4umXAMkRG1kkIAuTYT6BAOeo1Gjvmy5BEZLj1HzbfxuWc7qKINkDSMhMv9qXELw IQW8PeYsTWTVMK5EHNQeKFCavRPfXXTqTPMYEL6VSM riPGG6BNJljoJbxQTzVKjwVS3OOCIwbwErYNKtXSLTAIe+Vv4QTA8fd4TtVCiuLuRdJX3fkt1QKQuAIa QvI2U6uNYbX5C0BChiHn7NKCDpJSTpNELmNDDOISzjZW5JKQ0bluF6RJ4HeOKjMKCkNFWjmZRqKPz6G0 9jkHGhJTlmMV3TVDA+Devin+Tw2TZMIuYDGnWYPqYpKl CQUJTnZaQ4AcJ0IJi3NoX7ExIR20tHnbvhOrVCzpQN5XOE0vBEHxXGVARC9LwQRudU3gcqWvFEVrPKAA NqBlS28amDOqRGLsVMGjBQGlUr9HGCHdB1DiytGppCegmaPqOTVeOTAOBJ5WQXfdlzNvkAOryTynCM98 dZxrGL9MCj6ZJfCpHV6woj9OnDLzMg2DJOEzIi4ELA XqACJdVYQyFYX8BCRfWdHwJOciPEVpWRHjNWT6YZLlCVGzRK4HWcFoEOPxSSQ6AzOwNHYjUHWbhr3LCY BgFCMeLjA1ZARgYMIbRYBpKGanQCEuSHGeUHU7WNMrBDXfKX7SNqVoGACuNEU6PKZoUILmDXQwqa0LMN BzCVAjSlSpSPLpUCBtVZZtAQkvZYYjUYEmHMc4OUIk IAWaYH3XLiGkSPUfNFSnMzTzCOVhBQXvyi7SUVZeFELhTrY9CnCnBRYiFSTwTYpfIDMeOAY4YIRyGFQy UTVyWO2SMhCcUGLiFIH1KDAtHQEwVEAwil0PJYYzMYBrOEtcYCNtPVVtVYRqADlsSKEaGDQ8BoJ6MWYn XRIzNB6LQsGeXSRmCZT1XBIyQEDpHQMkot7UMQQjEY XnEshqSkXyTUWgUIMyUGzwGDHkIHV9ZSRoTJMiPGNgKA6OFaCnIPbaTXDTXfd1DUshB2w5XIRmXy8GQ2 Syb2VtNPRiWBCAUWhgBZ1yoaHtPNYdUx8KA1gVNpcdTMI3LoYsU2GwD0BnJWQ6KFZ1GnUcTKYmZUL9UU AsSM0pZGJ5JsB8QYR4EfAqXSGkIzVeMRbsKJCnLSWq OUm1X6SqPqYlQK5RZn0UOqM9CTF9sJOqXj4AOfCmWd1EOGOZQ1XXNv== ID Date Data Source [id number] 02/16/2020 03:27:04 PM [facility] XR SPINE LUMBAR 2-3 VIEWS [id number] RES ULTInterpreted by:Toy Peres MD[facility]3 views dated 02/16/2020.REASON FOR STUDY: Evaluate the C-arm leads and batteryFINDINGS: AP and lateral views of the lumbar spine were obtained. A dorsal column stimulator is seen overlying the right posterior/lateral gluteal region. The electrodes are positioned over the bony spinal canal at the T7 level. Alignment of the spine is normal. There is a limbus vertebrae at the L3 vertebral body.This document has been electronically signed by Toy Peres MD on 02/16/2020 3:24 PM Name Value Range Interpretation Code Description Data Luzma rce(s) Supporting Document(s) ID Date Data Source [id number] 02/16/2020 11:29:19 AM EST [facility] Name Value Range Interpretation Code Description Data Luzma rce(s) Supporting Document(s) Progress Note [facility] YNCKLa4oNySPEqYj84/GDJyoZESuo8HsCUvvJYy7JAacQGOoR7TqELL5vW3pJFX7TXxMHgWlIdLaYnOq lbm [file] VTV1TQ1tJOMHGq9+UKuwkWChlQpuPIKSXkC9KKZ9EXdaVGMCXg7M ID Date Data Source [id number] 02/16/2020 10:19:58 AM [facility] FLUORO NON-RAD PROC-OR [id number] RESULT This statement is intended for documentation purposes only.This exam was performed in the Operating Room by the Surgeon and a Radiologist was not present. Please refer to the Operative note in EPIC. Name Value Range Interpretation Code Description Data Luzma rce(s) Supporting Document(s) ID Date Data Source [id number] 02/16/2020 07:25:03 AM [facility] Name Value Range Interpretation Code Description Data Luzma rce(s) Supporting Document(s) History and Physical [facility] QHAPAh1nUtBZQzVm69/CJPfrBAZzd4KyAPyvEBe5JPjdZZVwC7HdVAK3oY4pSSB5VHcIThMlAcMmKdIo lbm [file] Scientist [file] AgICAgICAgICAgICAgICAgICAgICAgICAgICAgICAgICAgICAgICAgICAgICAgICAgICAgICAgICAgIC AgICAgICAgICAgICAgICAgICAgICAgICAgICAgICAg FWYmRA4AOGQdJJJlBTQhXFAqHSMbNHIySYHjIWSkTIFoDQMuGNSkCUMiPWYdAXCiXBGlUCYnWIIkOIVo ANUcHYAuNXYbWGRhVBBlEIPaWZBhNCTwCVWsCGYlRBDiTCGdSKMfUODbADScGV4TREGdAJLtXJVnSRSl ICAgICAgICAgICAgICAgICAgICAgICAgICAgICAgIC HfPBDpOCIhYJZaJMBeSFAoMFRwZNTyPDYySLSjBFQwKDOwZCEpQAPxTWAgUVVuUZUzDFZmKRGqSS2XWT AgICAgICAgICAgICAgICAgICAgICAgICAgICAgICAgICAgICAgICAgICAgICAgICAgICAgICAgICAgIC AgICAgICAgICAgICAgICAgICAgICAgICAgICAgICAg VGXzVMZtRJ3GMJBqAGQoFUAiRONqQFVwTOWjJPRcCPWwQXApGFDrZSAiUTNbOECcXDEwYLFzTEDrAIQu SWLjIKDlUVMoAQTiSGMiSWXnKUIiUFYlNUXlONGkCNBiZHStBFLuPDYqFKYuSEFzHV1HIXOeEDFeSHKo ICAgICAgICAgICAgICAgICAgICAgICAgICAgICAgIC AgICAgICAgICAgICAgICAgICAgICAgICAgICAgICAgICAgICAgICAgICAgICAgICAgICAgICAgICAgIA 0KICAgICAgICAgICAgICAgICAgICAgICAgICAgICAgICAgICAgICAgICAgICAgICAgICAgICAgICAgIC AgICAgICAgICAgICAgICAgICAgICAgICAgICAgICAg LHQvZZJtEYImKQ5XWAMpXUJnREKcFLVtPCAsLQPcVFRjNNBqJHWoIZFxLUVkWGHxCCUjEXYjEEMiAPUj GRLhOJLuAVNpQQPvPHWbZTLdUWYaXGJcXWOjKTVwGGPvAAZiDCNhKHBvBHCbVJHqCHNrBD4LTIZzYTZj ICAgICAgICAgICAgICAgICAgICAgICAgICAgICAgIC AgICAgICAgICAgICAgICAgICAgICAgICAgICAgICAgICAgICAgICAgICAgICAgICAgICAgICAgICAgIC AxQT5UYAQxMJWdILLaARVpIIXjKGDzCEWlCBJjGFChNNDhFRPnSLTqWNHcTRWlZYVfXMFdHXNhJTZrVY AgICAgICAgICAgICAgICAgICAgICAgICAgICAgICAg NMSsTQLsWSFcPFMpTS9FZD84iCFbu9Q2GLDrPS7zzcg/Dt2KLBmffnZfnQRkRA8DSzKgTL3faq6AYxVg VE5aho5KDJeOWjMzD0S6uHTgSUGfGFOMCkOvA16rCVyqHt36NKsqJGRmWeHsRNh2Vz9NBqIrA0kxKHDz MyZ6XUSuGwZ5KFPqNwX9VZExVvWkJECuZCQcIXNgCT QCEY6BTeDaL3BguG88KABZAl9+MOxlvqXuSnmZMhA4RYDyb4YjEUt2WH2DRUEvGnoww2BiSxjfMJHZDT dlSM3HOFU7DDX4SNSlCz5SJHOhY987srEmJZ0FZf7TNzKbPF2zko1ZYmliDBWbKdkOZnm3ISxeAY3DeU KqQIqDKsYvWnshBUigoIVyYXDeAFKqEfWgpXS8UOYK UGOvmZQgRd8kKlIiEcScJCI2QhYkXZ4cCQtyEX0RUZM8RHneJONeSTToZ8aEHwNfWNRuPwYkqJgnZK6W CaKqH1HmiqWexQUwZSGeXUFMPv6+WAguxpIpKswLPqRkXQQzf6BoSVw5NI4XITZtJLtlMM3TMYHdfC9e ATaoIX9XOiKxNhLhCIVQKnPxS67boBDwUUa9N5NhZo VkZGVkRmlsZXMgPDwvTmFtZXMgWyBdDQogID4+ID4+FTauNT5ILGmxheYcNTXySm5IDXZxRNIiFF5iTM JxIPYuI1N6wJzmPBKJDuBnD6cgxvydNE3uSEPcD764bAyzznFzGVT6PPOhVo9FPJSzGKX0GPKdnLEgRi ujJGLFFGixPY7DaMXdCYD6yQ4bZHasAEYuEWYpL1fO PvAwgIjrYD96hTpqvfOplMEuOWz+Gu8QIQ3hz2JhNFz7ltHuFDkmOPJoOIwaVIHaDZOwDKVhERG8CIM8 ENPSFgJcPIBiNOIwBPyyDPJuPLDvom1ZNCYmBAZ9PMf2WTRbHJFvDKYgGMihCAElPSR2DhI8BWDrJFUu YE8XUmBhHQMbZEKoEYynDIXgLYUftc0BJKOiSEUnOz T8JIYyGLWvHOTlKDxrKSOsNXZkUxb4HQUmTEGgOK9DVxVfVBVvHQE9WCClYABaEAHapv5QSEKsOKUzXn U8EyVnYRDnEEXxZKzgTHBdSEC1MBUeMHNgHRFlKF2HOnDeYYMvTVo2HzEuQMBiZWZxts2TNEZtXXKbIw IvYWDrHSMeQBGhGExvSQPqYAQoFQI1UHVgDDChAG6Q PaMdWUYfMIE9RKFqMGSuGDYzup4SVIXpJPNlKBJ3BpXtLMSwMACwDUkzAFMcCMD0AEP8NYYpJSHaJI6B JvYyHUMiHTDoABAcSPTwYPQmkn6KWWIcKFEdDmQ3TrBxVRHdTMGhSGzwZNKyVAZ7PdK3XSMuMQObYU6C LcRrAOAlKDz9XZjmKFZlBQEttd9SUYRgSHZpBffaCb CfBYTmXETxPFpcVHRdVXJ8DqN5SRAyPQApLC5OScUvJBXdWzqgWPtwEWKhIDPoke2IKGMwVRVhYOTdMq OqAHThMUJdXHkrEJYgRFM0DSnuPXUiOADyWZ8LHgNlGFItNPKyWiOzQPPtOLLycd8ALWVwDNG6RKq1WB HwPPAbPDOwKNtmNMEsLSVzNSFjIHUvDBBuAI2HOuOz TJJwKOBkNmTsFMCaXRSxbc7WYAWzAYA2OdsgBeNhSGRcVLBlYIomRLDpZISwIRS5OBTfPKLxHX3QPdDw MWCaJWPhLgObUAXqEXLwen8LWGIzOGO7PvR5GxZiTWHgRYXbQGbeKRBjXGTpQeZ0NMKbAYLxEY9POhWf EXMgFJX2CqGjQMUnKQRbqc0EKXRiVWK8QQp5TEKuHJ XoYIWuIOwzOSJqGQI8BIU1JROwQBCdJJ6CNtHdPBJrZDMsJmwsEQWtKDLhao5LWQXwGAS8Rfp0EtPiCE WzIPKpXUnaUUVjJAV1PCQaLWJrWFCqVR0XWkLhQJOuFSmrZVWpHNPhUNDdjs7GaBWnyGrlis5IGIaHMf 8WgKzpPLWzGNxhVg9veDU3ERNzUCCUMo1GxmJlAQMe SYLKYFjaIQSyTAX6OSGdGWhcErIwQJQqVtw9DhywSAB0NvBmLPBhRZvjAeU9OSU6OQX0WmNdGSS4ELEc RpJnCVHoUCr0NrAfMAR1I3Q+DO2eJGa+Su6Af6PdleZ9juOeLTh9WjI6FF1LAOELO1JUBe== ID Date Data Source [id number] 02/16/2020 07:14:05 AM [facility] Name Value Range Interpretation Code Description Data Luzma rce(s) Supporting Document(s) Choriogonadotropin.beta subunit free [Units/volume] in Serum or Plasm a <5 [facility] (NOTE)Levels between 5 and 25 [IU]/L may indicate earlypregnancy and should be repeated after 48 hours. ID Date Data Source [id number] 02/16/2020 07:13:24 AM [facility] Name Value Range Interpretation Code Description Data Luzma rce(s) Supporting Document(s) ABO and Rh group [Type] in Blood [facility] Blood bank comment [facility] ID Date Data Source [id number] 02/14/2020 08:49:22 AM [facility] Name Value Range Interpretation Code Description Data Luzma rce(s) Supporting Document(s) [facility] EHRYSz9vWoIPLcNxj9VmUtUtHNJnYX6frrv7X5U5yWRxT7LenNBda4cfS6NhS9MnPKVnQSWUDD1AsCQp jb2 [file] 90+ic6/Claudia/olO/2Xln7NPY9Gfy+jI76y+ISdA58zZ+L94sE8MF/mdNZDfWZmPRYP+pTM0zZyOq7qGIj MIGbj9ANAg4Ascme5DuNUQJsTpakVkpMLbWL/Q+VqlPZfgFC62jvmmULjYjtvH5eSMk/CPHGpI3w6P+2 A+lXZiVCQQxutS2S7I7dLQyLiF35M3g9AJ2Emtj9X/ jT0Q4cqKEfFHDpxYH0qojRX2GeZM4C+OetRsjT5P9mcLLiAAPen3tLXf9SfPExZ5MHU9cIPyQLUZVn/L JhS5evOj1GVYalRiKOyLDFrB5qbEKXIVcPFfeeCbPNwDYp/LLaCPOvZcOx+XE0YvV7fvT2MARPZ8HpAi OM0LAUghJjABNn/UIxTMKJqXYDKKRONAFQMYZOJ6W8 G2bx3LjobguDKB+bSRo2KWB+tPtL7Z0WcQLNI8Rzr9FsAFRnU+ibtbGmD8XvYnXxBizJULSfKdplAqJ3 IuGsftmsWqHZ8GaMEakJ/kHLQID6xbmQxUhqEEErysH8BgznnNDh/HjbNmpKhKp9RLPllY21lmgBoSQk CqzHune8LUEEatanFtvOfme/+juM/gGMd7ehwGkN4h lY+claDFx9LUAyOK0/u8+MRx/5ctfeKDHkSE6IqCYviqfJNzRUBEVWn38xzphftBJx/Tsif89ejcgU51 bt/GkN1BholH897tQ7jhg51zdP5LGY+WxiP0QLPUSh+0unn67ThQuq7kt6GQ35sWb9KmKNcguS/OB4nv haCdGOQTOx/L/TgcC+WPbK1EL+tmCLzPWSv08rGfxQ qnwUCm4DC9X5osMMkP+lC8S2pq5BSkRlBoFgJeOvXsIsFxYoEyLjDzQaRrCgZkVwCdGfAiMpVlVxKyRb ZlPhZlPhZlPhZlPhZlPhYdyO+vqu9GSicKRENGVY1m3/3i1x/s4azL7Jk54d/e/bx84tJWla//r7cPH1 /AxeSpX1yu2Cwigk962sic//e3bz//4rcfvsLvKsLp 88Mvf/ILoOFLSfV5xt5Si1/s+uXX33z/y+2++YriobcmshJ0C+fC+f13f/j6X97+7YcoUz8+0uTa4x53 5ssvPv/q7Q9ff/n9h2+/+/Ljv/zy959/fHt7+/auC4p22cpNv26++Pjtlx++//lfy7HgRrc+myjj0T76 q+Id7Ft9+yYshem70ex/8vG3v/svfvZagF8/+/qbb3 /3/gwfvvin/+KUCjjF5c6/7Yfvv/glegO0Q7874vh7o1/51ee//urDz/+0w2+9/vTFX//y73/6208//t vb//jfb9//6c9//uFvf/vxhz//97ff/PCXP/3457d//W+S//oPb3/9y5vor+JHme7eQ9+fqbx9/ru/q/ I+6mScVsGpu551S2uhIpmjUU/gB86Zc8jt5+B+/fb/ Bbi/Sx5w/oC7tuNhedxxggtldaV/Aotxlnlk9dy/AZzC5/inmZc1NZ8dmA9v5xIIm6/89x/f2+fVWJ+9 nj2www4++/mHr97+6fOv/unzr7/8cFq6vn4OD//62dfx01Qb/Os+Ve92pC8/g6okkBpPCPFC6D84gw8/ /Mt//xIg5780ex9/Vx70sYlgcHQqX/1Iu7E0G4i4SZ 9e+g3+/tu3P/3lP3/82//6jw2mle3I+rgk7gv6pi0Q5To7j35+9/Zv/+v92f/017/9rVop1o2feGwHM/ bPH3/1zx//dAb3FlN+bl3/yj0/KX0/9Y4WpTeD6wCXzjSeX9kkuEDZ//sjqhl4v/z2lx/ffvh/fvyPvx 15m8kG78STV2WS++hze/vff/vXf/jZr+/38H/8+NMP f/7dLb0M3J8++F9//OE//vTDX/6+rRzmiz4bX9/67Gfo/cBf/fWPnw2+qx5WKlU2E/jHH//4f/9lJ668 o4JuwpzmD4zk/XTnxqif/sd/vneaf/wdhFm75Xm///yq1sL4J/I3v/vdh68/qjnT4dzm/v9/1doo5ThB 89rvf/luS23R82///U0+locrczxoh83v0la1onf74S cf3wf+a157u+SXv/unMM7E17o8md/kjnd8Gyu0ariFu2/xxTd/+Pr9t+464LfyfgzO49B/I0tnQTvWDG 9od8AnMFLpBqHiZK2svqsjPJCeKJ4wwzl0J3NkyLwoZNqUCAExQb5xwYFsSQ8FZDI6YMblTHGgYQCfN4 WqtN2uR20gfFTpUdXoJVBKAC4HqhF1OJB1XYQ5UMEl EmHfEAAeJP00MKOeIGJEXi7uegFyJjqZUhYgQI0owcg3X4T7tGLuE864wHwrrlJlKQ9Ur2ZzbLDkBE5O rZIsyPJxTCYiBXLgZ6sqi8QqINahSFQQYg9fpuVhQmxKIqThFR8zbci1E1B6cAtpyhAoCJWDBOcnPnqr KO5epKtbjuclX5JslEDeAGQeF7ApUWJkh81EVNBqUO tFGxMcCkQdPtLaGPr5BOjdDuQwUUYyNMGpERYaXR6DjUXbVIYkSYSRGIheVrfoMMYjaO3sbIPTf5OkVd FKQNNOPfnkQoQDDMEITJM4PFD6RYKyRP5JsGIyZTR1TLjMSOYQSQtCBPrjOqIyt3H5OSAvJ4DgEHLmqz CwCYARPUktKgmyGX5naIgltiouX3OkyBVkFRWKTRSp DPQjSKXeYIMqN1Qhq5E4U2OfYOxWJPAHOGjYMMpgQyS8t65sjyQZYLDeBKPfPC6+QD3sp8HcUq4JIAVx WW8piah0EO6RvMLvZU8FEJioxiIaJ9qvhaVrItByTMTUAZ0cZ2FzsR36ZJO+CtTbEH7bxtp9bnZnMfQz NXQoGSLmJRIsQPfrDOBdBOUrXMDaTSU2GOF2NQClPn DgOCFiVbR3MTQuMZRcORCocfDDDRJiZES9AaJ8XQDiYIWbQJHtOKvlKDTxOYCsXgVnJCRfYKBhPC5uFb YjVAGnSCNsUFRpCjK7GtIdHgYAZDTxZDExXPSnDcGjDWIbMTQqBOwfZSRbDACpQRr5AYOnZSXoBW5dAb OnDZTfQWFqKZEwEGDvVFDnkgBBKIGpJUZoGLZ5KDDm CVIeUWKxJBgvIDObZDFlXKQ9DUYgOSIeXT7wEoKoRRDjIYP5JjTwRZUmQBWosqCYHVGxLDEbXAS9ZIBm OIOvRAMmHRuwQSKbTYVyBjH8YMVgWFBfVY1bUbKgIVRmPZN6GNDbXJWbJRKvgfZNGSWwFXLlMNr0YzZd ERVvITItKBvvBGViZQGaYJriNURbIWHjIQ7rJhEgSK GbFPTgGNYrXPJyVYPjklECJSWvLBLqRFO1ZnZySXMtSFWkMJezFKCpWHWjRDV0VCNxLCRgJI9wCjZmIU YtVbU3DJHqTDZoZCDezbLXYGAbYAKyWIRtBCAbTATwQPTjIZgvRRXdEIVsWgG5CBFwRHGbQT0sRrKeKG NjSHT2IRWcJLKnPHBszaILWBZgUNOoZYLnELL1ETRn IEVzEFk6fsHzqEOdKvf7Ed7DgHoiVOZ2Dh0SedOnYCDxHSTYAo5Nj488NICsHMLEDew+PgpzdGFydHhy GKTYElAsMOEASUDGI6P= ID Date Data Source [id number] 02/13/2020 04:18:22 PM [facility] XR CHEST FRONTAL AND LATERAL [id number] RESULTInterpreted by:Kiran Wilson MDINDICATION: Preop evaluation. COMPARISON: NoneTECHNIQUE: PA and lateral chest radiograph. FINDINGS:Cardiomediastinal silhouette: Mediastinum without abnormality.Lungs and Pleural spaces: No pneumothorax, focal opacities or effusionOsseous structures: Intact.Visible upper abdomen: No visible acute pathology.IMPRESSION:No evidence of acute disease.This document has been electronically signed by Benedict Loving MD on 02/13/2020 4:16 PM Name Value Range Interpretation Code Description Data Luzma rce(s) Supporting Document(s) ID Date Data Source [id number] 02/13/2020 05:49:55 PM [facility] Name Value Range Interpretation Code Description Data Luzma rce(s) Supporting Document(s) ABO and Rh group [Type] in Blood [facility] Blood group antibody screen [Presence] in Serum or Plasma [facility] Blood bank comment [facility] ID Date Data Source [id number] 02/13/2020 05:24:00 PM [facility] Name Value Range Interpretation Code Description Data Luzma rce(s) Supporting Document(s) Leukocytes [#/volume] in Blood by Automated count 12.2 10*3/uL 4-10 H [facility] Erythrocytes [#/volume] in Blood by Automated count 4.32 10*6/uL 4.1- 5.3 [facility] Hemoglobin [Mass/volume] in Blood 13.7 g/dL 11.5-15.5 [facility] Hematocrit [Volume Fraction] of Blood by Automated count 41.2 % 3 6-45 [facility] Erythrocyte mean corpuscular volume [Entitic volume] by Auto mated count 95.3 fL 80-96 [facility] Erythrocyte mean corpuscular hemoglobin [Entitic mass] by Automated count 31.7 pg 27-33 [facility] Erythrocyte mean corpuscular hemoglobin concentration [Mass/volume] by Automated count 33.2 g/dL 32.0-36.0 [facility] width [Ratio] by Automated count 13.8 % 11.5-14.5 [facility] Platelets [#/volume] in Blood by Automated count 291 10*3/uL 150-400 [facility] Differential cell count method - Blood [facility] Neutrophils/100 leukocytes in Blood by Automated count 56 % [facility] Lymphocytes/100 leukocytes in Blood by Automated count 36 % [facility] Monocytes/100 leukocytes in Blood by Automated count 6 % [facility] Eosinophils/100 leukocytes in Blood by Automated count 1 % [facility] Basophils/100 leukocytes in Blood by Automated count 1 % [facility] Neutrophils [#/volume] in Blood by Automated count 6.90 10*3/uL 1.8-7 .0 [facility] Lymphocytes [#/volume] in Blood by Automated count 4.37 10*3/uL 1.2-4 .0 H [facility] Monocytes [#/volume] in Blood by Automated count 0.71 10*3/uL 0-0.8 [facility] Eosinophils [#/volume] in Blood by Automated count 0.15 10*3/uL 0-0.5 [facility] Basophils [#/volume] in Blood by Automated count 0.06 10*3/uL 0-0.2 [facility] Nucleated erythrocytes/100 leukocytes [Ratio] in Blood by Automated count 0 /100{WBCs} 0-0 [facility] ID Date Data Source [id number] 02/13/2020 05:31:29 PM [facility] Hospital Name Value Range Interpretation Code Description Data Luzma rce(s) Supporting Document(s) Prothrombin time (PT) 12.4 s 12.5-14.9 L [facility] INR in Platelet poor plasma by Coagulation assay 0.92 [facility] Routine intensity oral anticoagulation I NR is typically 2.0-3.0. Target INR must be clinically individualized. ID Date Data Source [id number] 02/13/2020 05:31:29 PM [facility] Name Value Range Interpretation Code Description Data Luzma rce(s) Supporting Document(s) aPTT in Platelet poor plasma by Coagulation assay 33.2 s 24.0-33. 0 H [facility] ID Date Data Source [id number] 02/13/2020 05:44:04 PM [facility] Name Value Range Interpretation Code Description Data Luzma rce(s) Supporting Document(s) Bicarbonate [Moles/volume] in Serum 24 mmol/L 22-29 [facility] Chloride [Moles/volume] in Serum or Plasma 107 mmol/L 98-107 [facility] Creatinine [Mass/volume] in Serum or Plasma 0.76 mg/dL 0.50-0.90 [facility] Glucose [Mass/volume] in Serum or Plasma 84 mg/dL 70-140 [facility] Potassium [Moles/volume] in Serum or Plasma 3.8 mmol/L 3.4-5.1 [facility] Sodium [Moles/volume] in Serum or Plasma 140 mmol/L 136-145 [facility] Urea nitrogen [Mass/volume] in Serum or Plasma 15 mg/dL 6-20 [facility] Anion gap 3 in Serum or Plasma 9 mmol/L 8-15 [facility] Osmolality of Serum or Plasma by calculation 290 mosm/kg 275-300 [facility] Creatinine/Urea nitrogen [Mass Ratio] in Serum or Plasma 20 [facility] Calcium [Mass/volume] in Serum or Plasma 9.0 mg/dL 8.6-10.0 [facility] Glomerular filtration rate/1.73 sq M pre dicted among non-blacks [Volume Rate/Area] in Serum or Plasma by Creatinine-based formula (MDRD) >6 0 [facility] Glomerular filtration rate/1.73 sq M pre dicted among blacks [Volume Rate/Area] in Serum or Plasma by Creatinine-based formula (MDRD) >60 [facility] ID Date Data Source [id number] 02/13/2020 05:33:00 PM [facility] Name Value Range Interpretation Code Description Data Luzma rce(s) Supporting Document(s) Color of Urine [facility] Clarity of Urine [facility] Specific gravity of Urine by Refractometry automated 1.012 1.003 -1.030 [facility] pH of Urine by Automated test strip 7.0 5.0-8.0 [facility] Protein [Mass/volume] in Urine by Automated test strip Neg [facility] Glucose [Mass/volume] in Urine by Automated test strip Neg [facility] Ketones [Mass/volume] in Urine by Automated test strip Neg [facility] Bilirubin.total [Presence] in Urine by Automated test strip Negative [facility] Hemoglobin [Presence] in Urine by Automated test strip Neg [facility] Leukocyte esterase [Presence] in Urine by Automated test strip Negative [facility] Nitrite [Presence] in Urine by Automated test strip Negati ve [facility] Leukocytes [#/area] in Urine sediment by Automated count 0 /HPF 0 -5 [facility] Erythrocytes [#/area] in Urine sediment by Automated count 0 /HPF 0-3 [facility] ID Date Data Source [id number] 02/13/2020 01:50:11 PM [facility] Name Value Range Interpretation Code Description Data Luzma rce(s) Supporting Document(s) Progress Note [facility] [id number] lbm [file] [id number]= ID Date Data Source [id number] 02/13/2020 01:50:00 PM EST [facility] Name Value Range Interpretation Code Description Data Luzma rce(s) Supporting Document(s) SARS-CoV-2 RNA [facility] This lab was ordered by [facility] and reported by [facility]. 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 [facility] Patient has symptoms related to condition [facility] When did you start to experience these symptoms [Date and time] [Phen X] [facility] Patient was hospitalized because of this condition [facility] patient was admitted to ICU for condition [facility] Patient resides in a congregate care setting [facility] status [facility] ID Date Data Source [id number] 12/29/2019 09:42:39 AM EDT [facility] Name Value Range Interpretation Code Description Data Luzma rce(s) Supporting Document(s) Progress Note [facility] [id number] lbm [file] AgICAgICAgICAgICAgICAgICAgICAgICAgICAgICAgICAgICAgICAgICAgICAgICAgICAgICAgDQogIC AgICAgICAgICAgICAgICAgICAgICAgICAgICAgICAg ICAgICAgICAgICAgICAgICAgICAgICAgICAgICAgICAgICAgICAgICAgICAgICAgICAgICAgICAgICAg ICAgICAgDQogICAgICAgICAgICAgICAgICAgICAgICAgICAgICAgICAgICAgICAgICAgICAgICAgICAg ICAgICAgICAgICAgICAgICAgICAgICAgICAgICAgIC AgICAgICAgICAgICAgICAgDQogICAgICAgICAgICAgICAgICAgICAgICAgICAgICAgICAgICAgICAgIC AgICAgICAgICAgICAgICAgICAgICAgICAgICAgICAgICAgICAgICAgICAgICAgICAgICAgICAgICAgDQ ogICAgICAgICAgICAgICAgICAgICAgICAgICAgICAg ICAgICAgICAgICAgICAgICAgICAgICAgICAgICAgICAgICAgICAgICAgICAgICAgICAgICAgICAgICAg ICAgICAgICAgDQogICAgICAgICAgICAgICAgICAgICAgICAgICAgICAgICAgICAgICAgICAgICAgICAg ICAgICAgICAgICAgICAgICAgICAgICAgICAgICAgIC AgICAgICAgICAgICAgICAgICAgDQogICAgICAgICAgICAgICAgICAgICAgICAgICAgICAgICAgICAgIC AgICAgICAgICAgICAgICAgICAgICAgICAgICAgICAgICAgICAgICAgICAgICAgICAgICAgICAgICAgIC AgDQogICAgICAgICAgICAgICAgICAgICAgICAgICAg ICAgICAgICAgICAgICAgICAgICAgICAgICAgICAgICAgICAgICAgICAgICAgICAgICAgICAgICAgICAg ICAgICAgICAgICAgDQogICAgICAgICAgICAgICAgICAgICAgICAgICAgICAgICAgICAgICAgICAgICAg ICAgICAgICAgICAgICAgICAgICAgICAgICAgICAgIC AgICAgICAgICAgICAgICAgICAgICAgDQogICAgICAgICAgICAgICAgICAgICAgICAgICAgICAgICAgIC AgICAgICAgICAgICAgICAgICAgICAgICAgICAgICAgICAgICAgICAgICAgICAgICAgICAgICAgICAgIC OjLAPyEIw9U0pqJJLlWXCeAE8nFDx6Ru7+DQoNCmVu LXM3btSxhH5TVR5re7MhOSkpMGWpy3AdLVe1VS4XIQGwXHuxJS7JKQkbzv4EUITkOVYssNQRy8znXeJi CCK1XCXcTqtgVD1ZAOLtK6lscsApHKNdVUMYEP0BLcXbO0SwqM99SVJRBk8+DQplbmRvYmoNCjIyIDAg a3FiAVr7CQ2SNJKwTwfev8McVqAaLQVJFGilQA9BON G4AFOvYNIgQf5CHYSzD540liMdVI0UKo6LCnZpYF1obo9OScCbCAPzRgtSKqv1ALhcRX9ZbVCfNBrEus 3uhmZljmUOn6GkqbFrlBBHgWCfHELiUWYaB0BhJ6SdapiuFEMwJGLiRRBsAARyFmHrPYFaAUdlJGVGNB kENoPlW7Ddq8SaJqS0FLBtXlBkSGbcIJSfAvD4LI74 qSzwMA9CVAKwDCVxMI41JVBfFBJoBp8YIw1ZOzObQV1rdw2LTkEiUREhOtoMXxh1MBggLY5QiWIbP7Ix zJLhh2lRSiDwA6WLWLPtTORtUh7RPUCzMrThUSNtEPibHB6qZPSrKBOQkRtguiB5RM0NAO7febViDO3V TwEnYp8dGr7CWkWaC5WkQ4PqUPAyBQMPYHjmFS6GBT rxSR9cIZ2Dg4YQyGJrkI1yyz4OMGAtZQHxXlvnem8ULvvmF9I5qVlsBJDoWrKwEGOFEBefUC1YJBRbKT O7EGUiECTlFAUYNmTkZ18lWM8IG9Reh16zZqT1STSjNgOeYGchUA67iRgqvfDizSFolDsnTZ1PUi6+DQ plbmRvYmoNCnhyZWYNCjAgMjUNCjAwMDAwMDAwMDAg WnM9NxWrTb3NUMXrZWSgOGCbWfXkHHKeAYQhYUftOSNvMTG4BYzjJKQyEAEyWU4PPrLxVIXbIkClNnco YWLyKIWvgt6JNXRcVIGyEPX2YaTaTKHhNIYyYMpbLHJtSPQvTJRdDCKvFXFnTO6DKuVoJGJbQVMjVqje BWZmSJEhud7JUBVxWSCuCMC7MsAvUOZgEEGuUPgjWD WnZBC0FicoRGMeQCQcTZ2VKuMbTJIpHSY9TfOkNAWiDLJzio9JYNIjVOQxJISoQMRdPKIsJYYdLZeyZO RcLMK6ZdBrOPDgXHDwCB6BMvRjREErTMT0EIpeSYXmXUWwpv8JZWEyQDXtNuB6GGKtPOAhUYVeUDhvPI EwYHF3KMofTACiUNNuVO7AIiGeXYEgWGv1XLdtYZSp UWTnfk7NOHTaMVArWDBsPNHwPKUyOMBbTMhjKMBsDSK2PMc8KUMiBTGrSW6KQdTeKSBhRLljYUhmDODp ZSAxnr0ZAJZvOMYyVTNgVQXjFINpYLOqLQbvJHNzKMK9SOzqWLNyZHLiRC9ASaKsTTUtXUb5BBdyISBj KDPgdx6SHTGeRDQfDAAvTMKmJPXqGYOvDZixWJAdQZ CaBmq8KDYsCPVqKI0KQaCxZEIrXyC3NZihUBEjYXLczy6GwHUroJpwyz1RJZxIZl0DbAvyBCF2AQolRa 9qcXNuLADaCWWJSv0SqwJrQJRhBDSOOFsqZAOsMVSuVwgdADMtUlydMUEmZ1G9NtwaVlzfEUF1SiKmDh JqZiH1MCLcDRA6UBD0UOUkJFW9PoxpNOO5YFI7HTrr YjMyYWE+RO6rUYx+Nu2Dp3EbrrW2cyGcOLhySIk5Kk3DKWTEC6HDNf== ID Date Data Source [id number] 12/09/2019 11:15:00 AM EDT [facility] Name Value Range Interpretation Code Description Data Luzma rce(s) Supporting Document(s) SARS coronavirus 2 RNA [facility] This lab was ordered by [facility] and reported by [facility]. Procedure Social History Code Duration Value Status Description Data Source(s ) Smoking 10/17/2020 12:00:00 AM EDT Unknown if ever smoked comp leted Unknown if ever smoked [facility] ([facility]) Smoking 10/05/2020 12:00:00 AM EDT Current Smoker completed Curre nt Smoker eCW1 ([facility]) Smoking 09/14/2020 12:00:00 AM EDT Unknown if ever smoked comp leted Unknown if ever smoked [facility] ([facility]) Smoking 08/30/2020 12:00:00 AM EDT Unknown if ever smoked comp leted Unknown if ever smoked [facility] ([facility]) Smoking 08/28/2020 12:00:00 AM EDT Unknown if ever smoked comp leted Unknown if ever smoked [facility] ([facility]) Smoking 08/16/2020 12:00:00 AM EDT Unknown if ever smoked comp leted Unknown if ever smoked [facility] ([facility]) Smoking 08/14/2020 12:00:00 AM EDT Unknown if ever smoked comp leted Unknown if ever smoked [facility] ([facility]) Smoking 07/31/2020 12:00:00 AM EDT Unknown if ever smoked comp leted Unknown if ever smoked [facility] ([facility]) Smoking 07/05/2020 12:00:00 AM EDT Current Smoker completed Curre nt Smoker eCW1 ([facility]) Smoking 07/05/2020 12:00:00 AM EDT Current Smoker completed Curre nt Smoker eCW1 ([facility]) Smoking 07/05/2020 12:00:00 AM EDT Current Smoker completed Curre nt Smoker eCW1 ([facility]) Smoking 07/05/2020 12:00:00 AM EDT Current Smoker completed Curre nt Smoker eCW1 ([facility]) Smoking 06/14/2020 12:00:00 AM EDT Unknown if ever smoked comp leted Unknown if ever smoked [facility] ([facility]) Smoking 06/07/2020 12:00:00 AM EDT Unknown if ever smoked comp leted Unknown if ever smoked [facility] ([facility] Smoking 05/10/2020 12:00:00 AM EST Unknown if ever smoked comp leted Unknown if ever smoked [facility] ([facility]) Smoking 05/03/2020 12:00:00 AM EST Current Smoker completed Curre nt Smoker eCW1 ([facility]) Smoking 05/03/2020 12:00:00 AM EST Current Smoker completed Curre nt Smoker eCW1 ([facility]) Smoking 05/03/2020 12:00:00 AM EST Current Smoker completed Curre nt Smoker eCW1 ([facility]) Smoking 04/25/2020 12:00:00 AM EST Unknown if ever smoked comp leted Unknown if ever smoked [facility] ([facility]) Smoking 04/12/2020 12:00:00 AM EST Current Smoker completed Curre nt Smoker eCW1 ([facility]) Smoking 04/12/2020 12:00:00 AM EST Current Smoker completed Curre nt Smoker eCW1 ([facility]) Smoking 04/09/2020 12:00:00 AM EST Unknown if ever smoked comp leted Unknown if ever smoked [facility] ([facility]) Smoking 03/29/2020 12:00:00 AM EST Unknown if ever smoked comp leted Unknown if ever smoked [facility] ([facility]) Alcohol intake 02/28/2020 12:00:00 AM EST Lifetime non-drinker (finding) completed Lifetime non-drinker (finding) [facility] Tobacco use and exposure 02/28/2020 12:00:00 AM EST Never used co mpleted Never used [facility] Cigarette pack-years 02/28/2020 12:00:00 AM EST UNK completed [facility] Cigarettes smoked current (pack per day) - Reported 02/28/20 12:00:00 AM EST UNK completed [facility] Smoking 02/28/2020 12:00:00 AM EST Current every day smoker co mpleted Current every day smoker [facility] Alcohol intake 02/16/2020 12:00:00 AM EST Lifetime non-drinker (finding) completed Lifetime non-drinker (finding) [facility] Smoking 02/14/2020 12:00:00 AM EST Current Smoker completed Curre nt Smoker eCW1 ([facility]) Smoking 02/14/2020 12:00:00 AM EST Current Smoker completed Curre nt Smoker eCW1 ([facility]) Smoking 02/14/2020 12:00:00 AM EST Current Smoker completed Curre nt Smoker eCW1 ([facility]) Smoking 02/14/2020 12:00:00 AM EST Unknown if ever smoked comp leted Unknown if ever smoked [facility] ([facility]) Smoking 02/14/2020 12:00:00 AM EST Current Smoker completed Curre nt Smoker eCW1 ([facility]) Alcohol intake 02/13/2020 12:00:00 AM EST Lifetime non-drinker (finding) completed Lifetime non-drinker (finding) [facility] Alcohol intake 02/08/2020 12:00:00 AM EST Lifetime non-drinker (finding) completed Lifetime non-drinker (finding) [facility] Smoking 01/27/2020 12:00:00 AM EST Unknown if ever smoked comp leted Unknown if ever smoked [facility] ([facility]) Smoking 01/19/2020 12:00:00 AM EST Current Smoker completed Curre nt Smoker eCW1 ([facility]) Smoking 12/30/2019 12:00:00 AM EDT Unknown if ever smoked comp leted Unknown if ever smoked [facility] ([facility]) Smoking 12/19/2019 12:00:00 AM EDT Unknown if ever smoked comp leted Unknown if ever smoked [facility] ([facility]) Smoking 12/14/2019 12:00:00 AM EDT Current Smoker completed Curre nt Smoker eCW1 ([facility]) Smoking 12/09/2019 12:00:00 AM EDT Unknown if ever smoked comp leted Unknown if ever smoked [facility] ([facility]) Vital Signs ID Date Data Source UNK Name Value Range Interpretation Code Description Data Source(s) Body height 0.00 in Normal (applies to non-numeric resu lts) 0.00 in [facility] ([facility]) Body weight Measured 0.00 lbs Normal (applies to n on-numeric results) 0.00 lbs [facility] ([facility]) Body mass index (BMI) [Ratio] 0.00 kg/m2 No rmal (applies to non-numeric results) 0.00 kg/m2 [facility] Systolic blood pressure 0 mm[Hg] Normal (applies t o non-numeric results) 0 mm[Hg] [facility] ([facility]) Diastolic blood pressure 0 mm[Hg] Normal (applies to non-numeric results) 0 mm[Hg] [facility]) Body weight 263 [lb_av] 263 [lb_av] eCW1 ([facility]) Body height 65 [in_i] 65 [in_i] eCW1 ([facility]) Body mass index (BMI) [Ratio] 43.76 kg/m2 43.76 kg/m2 eCW1 ([facility]) Heart rate 89 /min 89 /min eCW1 ([facility]) Respiratory rate 18 /min 18 /min eCW1 ([facility]) Body temperature 97.2 [degF] 97.2 [degF] eCW1 ( [facility]) Systolic blood pressure 112 mm[Hg] 112 mm[Hg] e CW1 ([facility]) Diastolic blood pressure 76 mm[Hg] 76 mm[Hg] eCW1 ([facility]) Body height 0.00 in Normal (applies to non-numeric resu lts) 0.00 in [facility] ([facility]) Body weight Measured 0.00 lbs Normal (applies to n on-numeric results) [facility] Body mass index (BMI) [Ratio] 0.00 kg/m2 No rmal (applies to non-numeric results) 0.00 kg/m2 [facility] ([facility]) Systolic blood pressure 0 mm[Hg] Normal (applies t o non-numeric results) 0 mm[Hg] [facility] ([facility]) Diastolic blood pressure 0 mm[Hg] Normal (applies to non-numeric results) 0 mm[Hg] [facility] ([facility]) Body weight 258 [lb_av] 258 [lb_av] eCW1 ([facility]) Body height 65 [in_i] 65 [in_i] eCW1 ([facility]) Body mass index (BMI) [Ratio] 42.93 kg/m2 42.93 kg/m2 eCW1 ([facility]) Heart rate 89 /min 89 /min eCW1 ([facility]) Respiratory rate 18 /min 18 /min eCW1 ([facility]) Body temperature 96.7 [degF] 96.7 [degF] eCW1 ( [facility]) Systolic blood pressure 103 mm[Hg] 103 mm[Hg] e CW1 ([facility]) Diastolic blood pressure 61 mm[Hg] 61 mm[Hg] eCW1 ([facility]) Body height 0.00 in Normal (applies to non-numeric resu lts) 0.00 in [facility] ([facility]) Body weight Measured 0.00 lbs Normal (applies to n on-numeric results) 0.00 lbs [facility] ([facility]) Body mass index (BMI) [Ratio] 0.00 kg/m2 No rmal (applies to non-numeric results) 0.00 kg/m2 [facility] ([facility]) Systolic blood pressure 0 mm[Hg] Normal (applies t o non-numeric results) 0 mm[Hg] [facility] ([facility]) Diastolic blood pressure 0 mm[Hg] Normal (applies to non-numeric results) 0 mm[Hg] [facility] ([facility]) Body weight 248 [lb_av] 248 [lb_av] eCW1 ([facility]) Body height 65 [in_i] 65 [in_i] eCW1 ([facility]) Body mass index (BMI) [Ratio] 41.26 kg/m2 41.26 kg/m2 eCW1 ([facility]) Heart rate 116 /min 116 /min eCW1 ([facility]) Respiratory rate 18 /min 18 /min eCW1 ([facility]) Body temperature 97.1 [degF] 97.1 [degF] eCW1 ( [facility]) Systolic blood pressure 100 mm[Hg] 100 mm[Hg] e CW1 ([facility]) Diastolic blood pressure 76 mm[Hg] 76 mm[Hg] eCW1 ([facility]) Body weight 241.8 [lb_av] 241.8 [lb_av] eCW1 ([facility]) Body height 65 [in_i] 65 [in_i] eCW1 ([facility]) Body mass index (BMI) [Ratio] 40.23 kg/m2 40.23 kg/m2 W1 ([facility]) Heart rate 103 /min 103 /min eCW1 ([facility]) Respiratory rate 18 /min 18 /min eCW1 ([facility]) Body temperature 97.2 [degF] 97.2 [degF] eCW1 ( [facility]) Systolic blood pressure 107 mm[Hg] 107 mm[Hg] e CW1 ([facility]) Diastolic blood pressure 63 mm[Hg] 63 mm[Hg] eCW1 ([facility]) Body height 0.00 in Normal (applies to non-numeric resu lts) 0.00 in [facility] ([facility]) Body weight Measured 0.00 lbs Normal (applies to n on-numeric results) 0.00 lbs [facility] ([facility]) Body mass index (BMI) [Ratio] 0.00 kg/m2 No rmal (applies to non-numeric results) 0.00 kg/m2 [facility]) Systolic blood pressure 0 mm[Hg] Normal (applies t o non-numeric results) 0 mm[Hg] [facility] ([facility]) Diastolic blood pressure 0 mm[Hg] Normal (applies to non-numeric results) 0 mm[Hg] [facility] ([facility]) Body weight 245.4 [lb_av] 245.4 [lb_av] eCW1 ([facility]) Body height 65 [in_i] 65 [in_i] eCW1 ([facility]) Body mass index (BMI) [Ratio] 40.83 kg/m2 40.83 kg/m2 [facility] ([facility]) Heart rate 77 /min 77 /min eCW1 ([facility]) Respiratory rate 18 /min 18 /min eCW1 ([facility]) Body temperature 97.4 [degF] 97.4 [degF] eCW1 ( [facility]) Systolic blood pressure 106 mm[Hg] 106 mm[Hg] e CW1 ([facility]) Diastolic blood pressure 64 mm[Hg] 64 mm[Hg] eCW1 ([facility]) ID Date Data Source [id number] 02/28/2020 03:45:02 PM [facility] Name Value Range Interpretation Code Description Data Source(s) WEIGHT RECORDED 245 lb 245 lb [facility] Body height Measured 67.56 in 67.56 in [facility] ID Date Data Source [id number] 02/22/2020 10:01:21 AM [facility] Name Value Range Interpretation Code Description Data Source(s) WEIGHT RECORDED 245.3 lb 245.3 lb [facility] WEIGHT RECORDED 245.56 lb 245.56 lb [facility] ID Date Data Source [id number] 02/13/2020 05:50:04 PM [facility] Name Value Range Interpretation Code Description Data Source(s) WEIGHT RECORDED 246.7 lb 246.7 lb [facility] Body height Measured 67.56 in 67.56 in [facility] Patient Treatment Plan of Care Planned Activity Planned Date Details Description Data Source (s) Oxybutynin chloride 5 MG Oral Tablet 02/17/2020 09:00:00 AM [facility] multivitamin tablet 1 tablet 02/17/2020 09:00:00 AM [facility] Cholecalciferol 400 UNT Oral Tablet 02/17/2020 09:00:00 AM [facility] Levothyroxine Sodium 0.025 MG Oral Tablet 02/17/2020 07:30:00 AM [facility] duloxetine 60 MG Delayed Release Oral Capsule 02/16/2020 10:00:00 P M [facility] quetiapine 200 MG Oral Tablet 02/16/2020 10:00:00 PM [facility] Magnesium Hydroxide 80 MG/ML Oral Suspension 02/16/2020 10:00:00 PM [facility] cetirizine hydrochloride 10 MG Oral Tablet 02/16/2020 09:00:00 PM E [facility] Prazosin 2 MG Oral Capsule 02/16/2020 09:00:00 PM [facility] Propranolol Hydrochloride 10 MG Oral Tablet 02/16/2020 09:00:00 PM [facility] topiramate 100 MG Oral Tablet 02/16/2020 09:00:00 PM [facility] gabapentin 300 MG Oral Capsule 02/16/2020 05:00:00 PM [facility] ondansetron (ZOFRAN) injection 4 mg 02/16/2020 12:37:47 PM [facility] albuterol (PROVENTIL HFA) inhaler 2 puff 02/16/2020 12:37:46 PM [facility] Clonazepam 1 MG Oral Tablet 02/16/2020 12:37:46 PM [facility] Oxycodone Hydrochloride 5 MG Oral Tablet 02/16/2020 12:37:45 PM [facility] fentaNYL (SUBLIMAZE) (PF) injection 25 mcg 02/16/2020 12:37:45 PM E [facility] metaxalone 800 MG Oral Tablet 02/16/2020 12:37:45 PM [facility] 8.6 MG Oral Tablet 02/16/2020 12:37:[address] [facility], PENITENTIARY 35.2 MG/ML Oral Solution 02/16/2020 12:37:45 PM [facility] Bisacodyl 10 MG Rectal Suppository 02/16/2020 12:37:45 PM [facility] Benzocaine 15 MG / Menthol 3.6 MG Oral Lozenge 02/16/2020 12:37:45 PM [facility] Acetaminophen 325 MG Oral Tablet 02/16[facility]2020 [facility] Oral Tablet 02/16/2020 12:00:00 AM [facility] gabapentin 300 MG Oral Capsule 02/16/2020 12:00:[facility] 8.6 MG Oral Tablet 02/16/2020 12:00:00 AM [facility] Ondansetron 4 MG Oral Tablet 02/16/2020 12:00:00 AM [facility] Oxycodone Hydrochloride 5 MG Oral Tablet 02/16/2020 12:00:00 AM [facility] topiramate 100 MG Oral Tablet 12/13/2019 12:00:00 AM [facility] quetiapine 300 MG Oral Tablet 12/13/2019 12:00:00 AM [facility] quetiapine 100 MG Oral Tablet 12/13/2019 12:00:00 AM [facility] Propranolol Hydrochloride 10 MG Oral Tablet 12/13/2019 12:00:00 AM [facility] Prazosin 2 MG Oral Capsule 12/13/2019 12:00:00 AM [facility] Oxybutynin chloride 5 MG Oral Tablet 12/13/2019 12:00:00 AM [facility] Levothyroxine Sodium 0.025 MG Oral Tablet 12/13/2019 12:00:00 AM [facility] duloxetine 60 MG Delayed Release Oral Capsule 12/13/2019 12:00:00 A M [facility] duloxetine 30 MG Delayed Release Oral Capsule 12/13/2019 12:00:00 A M [facility] cetirizine hydrochloride 10 MG Oral Tablet 12/13/2019 12:00:00 AM E [facility]
[2021-01-09] MEDS ORDERED: NS 1,000 ML IV ONE (11:55)
[2021-01-09] MEDS ORDERED: METOCLOPRAMIDE INJ 10MG/2ML VIAL (J2765 PER 1) IV ONE (11:55)
[2021-01-09] MEDS ORDERED: KETOROLAC 30 MG/ML 1ML VIAL IV ONE (11:55)
[2021-01-09] MEDS ORDERED: methylPREDNISolone 125MG 2ML VIAL IV ONE (11:55)
[2021-01-09] MEDS ORDERED: diphenhydrAMINE 50MG/ML VIAL (J1200) IV STA (11:55)
--- NOTE | 2021-01-09 13:09 | REP ---
INDICATION: Persistent SOB post COVID, r/o PNA COMPARISON: 04/27/2017. TECHNIQUE: PA/Lateral the study is performed at 12 p.m.. It is submitted for interpretation 12:46 p.m.. FINDINGS: Lungs: Clear, no infiltrate. Heart: Normal in size. Mediastinum: Mediastinal silhouette unremarkable. Pleural angles: Unremarkable.. Bones and soft tissues: Unremarkable. Metallic plate and screws are seen in the lower cervical spine. Dorsal column stimulator leads are noted. IMPRESSION: No acute pulmonary disease. <Electronically signed by Obinna Daniel > 01/09/21 [id number]
[2021-01-09 14:28] LABS: VENOUS BASE EXCESS -2.5 (-2.0-2.0); VENOUS HCO3 23.3 MEQ/L (23.0-27.0); VENOUS O2 SATURATION 84.9 % (60.0-80.0); VENOUS PARTIAL PRESSURE CO2 43.9 mmHg (38.0-50.0); VENOUS PARTIAL PRESSURE O2 49.5 mmHg (30.0-50.0); VENOUS PH 7.343 UNITS (7.330-7.430); VENOUS STANDARD HCO3 22.1 MEQ/L; VENOUS TOTAL CO2 24.7 MEQ/L (24.0-28.0)
[2021-01-09 14:41] LABS: BASO % 0.4 % (0.0-1.0); EOS # 0.2 10^3/uL (0.0-0.5); EOS % 2.1 % (0.0-3.0); HEMATOCRIT 43.7 % (36.0-47.0); HEMOGLOBIN 13.8 g/dl (12.0-15.5); LYMPH # 3.5 10^3/uL (1.5-5.0); LYMPH % 36.3 % (24.0-44.0); MEAN CORPUSCULAR HEMOGLOBIN 30.8 pg (27.0-33.0); MEAN CORPUSCULAR HGB CONC 31.6 g/dl (32.0-36.5); MEAN CORPUSCULAR VOLUME 97.5 fl (80.0-96.0); MONO # 0.5 10^3/uL (0.0-0.8); MONO % 5.5 % (2.0-8.0); NEUTROPHILS # 5.3 10^3/uL (1.5-8.5); NEUTROPHILS % 54.9 % (36.0-66.0); PLATELET COUNT, AUTOMATED 292 10^3/uL (150-450); RED BLOOD COUNT 4.48 10^6/uL (4.00-5.40); WHITE BLOOD COUNT 9.7 10^3/uL (4.0-10.0)
[2021-01-09 14:58] LABS: ALBUMIN 3.5 GM/DL (3.2-5.2); ALT/SGPT 23 U/L (12-78); BILIRUBIN,DIRECT < 0.1 MG/DL (0.0-0.2); BILIRUBIN,TOTAL 0.2 MG/DL (0.2-1.0); CK-MB VALUE MASS < 1.0 NG/ML (<3.6); CPK CREATINE PHOSPHOKINASE 63 U/L (26-192); LIPASE 133 U/L (73-393); MB/CK RELATIVE INDEX 1.59 (< OR =4); NT-PRO BNP 23 PG/ML (<125); TOTAL PROTEIN 7.4 GM/DL (6.4-8.2); TROPONIN I < 0.02 NG/ML (< 0.10)
[2021-01-09] MEDS ORDERED: ISOVUE-370 76% 100ML VIAL As Ordered ONE (15:19)
--- OUTSIDE RECORDS SUMMARY | 2021-01-09 15:43 | CCD ---
Author Author [facility] Organization [facility] Address Unknown Phone Unavailable Support Name Relationship Address Phone JAE JACK Next Of Kin [address] [id number] KATTY GALICIA Next Of Kin [address] [place] [address] MARYANNAMOS [place] [address] AMOS LEWIS Next Of Kin Unknown MARYANN-GIANFRANCOGABBY CHENG Next Of Kin [address] [place] [address] DISABILITY Next Of Kin UN UN, UN UN DARIO MARTINS Next [place] [address] [place] [address] DISABLED Next Of Kin Unknown Unavailable DU MARTINS Next Of Kin [address] [place] [address] ÁNGEL FLOWER Next Of Kin [address] [place], [place] UE Next Of Kin Unknown Unavailable JODI SPOR[place] [address] NICE AND [place] [address] ST Next Of Kin Unknown Unavailable MARYANN AMOS Next Of Kin [address] [place] [address] UN Next Of Kin Unknown Unavailable ALAN LUNA Next Of Kin [address] [place] [address] NICE N EASY Next Of Kin [address] [place] [address] CATRACHO AUGUSTE Next Of Kin [place], [place] [id number] TIMELESS DECOR Next Of Kin [address] [place] [address] Unavailable Umm DAWKINS [place] [address] GUERO JAE ECON [address] [place] [address] Unavailable Kat[place] [address] Unavailable Alan Luna ECON [address] [facility] [place] [address] [phone] Shy LUNA ECON [address] [place] [address] Care Team Providers Care Sole Polisher Name Role Phone Deena Brasher MD Unavailable [...] Unavailable Anshu, Deena Mercedes MD Unavailable Unavailable Fairplay, Deena Mercedes MD Unavailable Unavailable Fairplay, Deena Mercedes MD Unavailable Unavailable Fairplay, Deena Mercedes MD Unavailable Unavailable Anshu, Deena Mercedes MD Unavailable Unavailable Fairplay, Deena Mercedes MD Unavailable Unavailable Anshu, Deena Mercedes MD Unavailable Unavailable Anshu, Deena Mercedes MD Unavailable Unavailable Fairplay, Deena Mercedes MD Unavailable Unavailable Anshu, Deena [...] ACOSTA Unavailable Unavailable GALGANOGIGI MD Unavailable Unavailable GALGANO, [...] PA Unavailable Unavailable CONSTANTINE, H JOSE RAMON SHOP TECHNICIAN Unavailable Unavailable CONSTANTINE, H JOSE RAMON SHOP TECHNICIAN Unavailable Unavailable CONSTANTINE, H JOSE RAMON SHOP TECHNICIAN Unavailable Unavailable CONSTANTINE, H JOSE RAMON SHOP TECHNICIAN Unavailable Unavailable CONSTANTINE, H JOSE RMAON SHOP TECHNICIAN Unavailable Unavailable CONSTANTINE, H JOSE RAMON SHOP TECHNICIAN Unavailable Unavailable CONSTANTINE, H JOSE RAMON SHOP TECHNICIAN Unavailable Unavailable CONSTANTINE, H JOSE RAMON SHOP TECHNICIAN Unavailable Unavailable CONSTANTINE, H JOSE RAMON SHOP TECHNICIAN Unavailable Unavailable Santa Lewis MD Unavailable Unavailable [...] is protected by Article 27-F of the [facility] Public Health law. If you continue you may have access to information: Regarding HIV / AIDS; Provided by facilities licensed or operated by the [facility] Office of Mental Health; or Provided by the [facility] Office for People With Developmental Disabilities. If such information is present, then the following [facility] mandated warning applies: This information has been [...] law may result in a fine or correction sentence or both. A general authorization for the release of medical or other information is NOT sufficient authorization for further disc losure. Allergies and Adverse Reactions Type Description Substance Reaction Status Data Source(s ) Propensity to adverse reactions to substance methocarbamol Methocarbamol 500 MG Oral Tablet Active [facility] ([facility]) Propensity to adverse reactions to substance Effexor XR (bobby lafaxine) 24 HR venlafaxine 37.5 MG Extended Release Oral Capsule [Effexor] Active [facility] ([facility]) Propensity to adverse reactions LATEX Latex Rash [facility] Propensity to adverse reactions ADHESIVE TAPE ADHESIVE TAPE Rash [facility] Propensity to adverse reactions VENLAFAXINE VENLAFAXINE Other [facility] Propensity to adverse reactions METHOCARBAMOL METHOCARBAMOL Other [facility] h [facility] Family History Family Member Name Family Member Gender Family Member Status Date o f Status Description Data Source(s) Unknown Unknown Problem [facility] ([facility], ) paternal Encounters Encounter Providers Location Date Indications Data Source(s ) Unknown [id number] [facility] [address] 11/29/2020 12:00:00 AM EDT [facility] Psych[facility] - 45 min Attender: Andre Poe [facility] 10/17/2020 10:15:00 AM EDT - 10/17/2020 10:15:00 AM EDT [facility] ([facility]) Attender: Luisa Villafana 10/17/2020 12:00:00 AM E DT [facility] ([facility]) Unknown [address] [facility] [address] 09/20/2020 12:00:00 AM EDT [facility] [place] [address] [facility] [address] 09/20/2020 12:00:00 AM EDT [facility]) Brief Individual Psychotherapy - 30 min Attender: Miracle munoz [facility] 09/14/2020 09:30:00 AM EDT - 09/14/2020 09:30:00 AM EDT [facility] ([facility]) Attender: Miracle Felix 09/14/2020 12:00:00 AM EDT [facility] ([facility]) Extended Individual Psychotherapy - 45 min Attender: Linda Felix [facility] 08/30/2020 08:45:00 AM EDT - 08/30/2020 08:45:00 AM EDT [facility] ([facility]) Attender: Miracle Felix 08/30/2020 12:00:00 AM EDT [facility] ([facility]) Outpatient Attender: JOSE RAMON FITCH NP [facility] Scottie pratt 08/28/2020 05:00:00 AM EDT - 08/28/2020 05:00:00 AM EDT [facility] ([facility]) Attender: JOSE RAMON FITCH NP 08/28/2020 12:00:00 AM EDT [facility] ([facility]) Extended Individual Psychotherapy - 45 min Attender: Linda Felix [facility] 08/16/2020 08:15:00 AM EDT - 08/16/2020 08:15:00 AM EDT [facility] ([facility]) Attender: Miracle Felix 08/16/2020 12:00:00 AM EDT [facility] ([facility]) Outpatient Attender: JOSE RAMON FITCH NP [facility] Scottie santa 08/14/2020 01:00:00 AM EDT - 08/14/2020 01:00:00 AM EDT [facility] ([facility]) Attender: JOSE RAMON FITCH NP 08/14/2020 12:00:00 AM EDT [facility] ([facility]) Unknown [address] [facility] [address] 08/01/2020 12:00:00 AM EDT [facility]) Brief Individual Psychotherapy - 30 min Attender: Miracle munoz [facility] 07/31/2020 08:15:00 AM EDT - 07/31/2020 08:15:00 AM EDT [facility] ([facility]) Attender: Miracle Felix 07/31/2020 12:00:00 AM EDT [facility] ([facility]) Unknown [address] [facility] [address] 07/20/2020 12:00:00 AM EDT [facility]) Outpatient Attender: JOSE RAMON FITCH NP [facility] Scottie pratt 06/14/2020 11:30:00 AM EDT - 06/14/2020 11:30:00 AM EDT [facility] ([facility]) Attender: JOSE RAMON FITCH NP 06/14/2020 12:00:00 AM EDT [facility] ([facility]) Outpatient Attender: JOSE RAMON FITCH NP [facility] Scottie l 06/07/2020 11:00:00 AM EDT - 06/07/2020 11:00:00 AM EDT [facility] ([facility]) Extended Individual Psychotherapy - 45 min Attender: Linda Felix [facility] 06/07/2020 02:00:00 AM EDT - 06/07/2020 02:00:00 AM EDT [facility] ([facility]) Attender: JOSE RAMON FITCH NP 06/07/2020 12:00:00 AM EDT [facility] ([facility]) Attender: Miracle Felix 06/07/2020 12:00:00 AM EDT [facility] ([facility]) TEMPMHCTelemed 30" Psychotherapy Attender: Miracle Felix [facility] 05/10/2020 02:00:00 AM EST - 05/10/2020 02:00:00 AM EST [facility] ([facility]) Attender: Miracle Felix 05/10/2020 12:00:00 AM EST [facility] ([facility]) Outpatient [address] [facility] [address] 05/03/2020 12:00:00 AM EST [facility] [place] [address] [facility] [address] 05/03/2020 12:00:00 AM EST [facility]) Outpatient Attender: JOSE RAMON FITCH NP [facility] Scottie l 04/25/2020 03:30:00 AM EST - 04/25/2020 03:30:00 AM EST [facility] ([facility]) Attender: JOSE RAMON FITCH NP 04/25/2020 12:00:00 AM EST [facility] ([facility]) Outpatient Attender: GIGI GAMEZ MD [id number] 04/24/2020 1 2:00:00 AM EST Other mechanical complication of implanted electronic neurostimulator of spinal cord electrode (lead), initial encounter [facility] Other mechanical complication of implant ed electronic neurostimulator of spinal cord electrode (lead), initial encounter Unknown [address] [facility] [address] 04/12/2020 12:00:00 AM EST [facility] Outpatient [address] [facility] [address] 04/11/2020 12:00:00 AM EST [facility]) Brief Individual Psychotherapy - 30 min Attender: Miracle munoz [facility] 04/09/2020 02:00:00 AM EST - 04/09/2020 02:00:00 AM EST [facility] ([facility]) Attender: Miracle Felix 04/09/2020 12:00:00 AM EST [facility] ([facility]) Extended Individual Psychotherapy - 45 min Attender: Linda Felix [facility] 03/29/2020 10:30:00 AM EST - 03/29/2020 10:30:00 AM EST [facility] ([facility]) Attender: Miracle Felix 03/29/2020 12:00:00 AM EST [facility] ([facility]) Unknown [address] [facility] [address] 03/06/2020 12:00:00 AM EST [facility] [place] [address] [facility] [address] 03/01/2020 12:00:00 AM EST [facility]) Outpatient Referrer: Jeanine PORTER 02/28/2020 12:00 :00 AM EST Other mechanical complication of implanted electronic neurostimulator of spinal cord electrode (lead), initial encounter [facility] Other mechanical complication of implant ed electronic neurostimulator of spinal cord electrode (lead), initial encounter Outpatient Attender: GIGI GAMEZ MD [id number] 12:00:00 AM EST - 02/28/2020 03:34:33 PM EST [facility] Outpatient Referrer: Jeanine PORTER 02/28/2020 12:00 :00 AM EST Other mechanical complication of implanted electronic neurostimulator of spinal cord electrode (lead), initial encounter [facility] Other mechanical complication of implant ed electronic neurostimulator of spinal cord electrode (lead), initial encounter Outpatient Attender: GIGI GAMEZ MDAdmitter: GIGI TRONCOSO MD [id number] 02/16/2020 12:00:00 AM EST - 02/16/2020 05:00:00 PM EST Illness, unspecified [facility] Illness, unspecified Patient discharged. Outpatient Attender: JOSE RAMON FITCH NP [facility] 02/14/2020 11:30:00 AM EST - 02/14/2020 11:30:00 AM EST [facility] ([facility]) Outpatient [address] [facility] [address] 02/14/2020 12:00:00 AM EST [facility] Attender: JOSE RAMON FITCH NP 02/14/2020 12:00:00 AM EST [facility] ([facility]) Outpatient Attender: JELANI COONEYReferrer: GIGI Wynne MD [id number] 02/13/2020 12:00:00 AM EST - 02/14/2020 12:00:00 AM EST [facility] Outpatient Attender: Sharee Lewis MDReferrer: Sharee Lewis MD 02/13/2020 12:00:00 AM EST Low back pain [facility] Low back pain Outpatient Referrer: GIGI GAMEZ MD 02/13/2020 1 2:00:00 AM EST Low back pain [facility] Low back pain Unknown [address] [facility], [facility] [address] 02/08/2020 12:00:00 AM EST [facility] TEMPMHCTelemed 30" [facility]/27[facility] 02:00:00 AM EST - 01/27/2020 02:00:00 AM EST [facility] ([facility]) Attender: Ginger Arriaza 01/27/2020 12:00:[address] [facility] ([facility]) Outpatient [address] [facility], [facility] [address] 01/19/2020 12:00:00 AM EST [facility]) Outpatient Attender: GIGI GAMEZ MD 01/05/2020 12:00:0 0 AM EDT [facility] Extended Individual Psychotherapy - 45 min [facility] 12/30/2019 08:00:00 AM EDT - 12/30/2019 08:00:00 AM EDT [facility] ([facility]) Attender: Ginger Arriaza 12/30/2019 12:00:00 AM E DT [facility] ([facility]) Outpatient Attender: GIGI GAMEZ MDReferrer: GIGI TRONCOSO MD [id number] 12/29/2019 07:53:24 AM EDT - 12/29/2019 10:02:14 AM EDT Low back pain [facility] Low back pain Outpatient Attender: Stewart Lewis PAConsultant: Daren molina MD 12/19/2019 02:25:00 PM EDT - 12/19/2019 02:25:00 PM EDT [facility] Outpatient Attender: JOSE RAMON FITCH NP [facility] santa 12/19/2019 10:30:00 AM EDT - 12/19/2019 10:30:00 AM EDT [facility] ([facility]) Attender: JOSE RAMON FITCH NP 12/19/2019 12:00:00 AM EDT [facility] ([facility]) Outpatient [address] [facility] [address] 12/14/2019 12:00:00 AM EDT [facility] Extended Individual Psychotherapy - 45 min Att[facility]: [facility] 12/09/2019 02:00:00 AM EDT - 12/09/2019 02:00:00 AM EDT [facility] ([facility]) Attender: Ginger Arriaza 12/09/2019 12:00:00 AM E DT [facility] ([facility]) Functional Status Immunizations Vaccine Date Status Description Data Source(s) COVID-19 VACCINE Moderna 08/28/2020 12:00:00 AM EDT completed [facility] Vaccine Series Complete: YESThis Data wa s Submitted to [facility]. Moderna #1 dose COVID-19(given elsewhere) SARSCOV2 VAC 100MCG/0.5ML IM 07/31/2020 11:51:00 AM EDT completed eCW1 ([facility]) Moderna #1 dose COVID-19(given elsewhere) SARSCOV2 VAC 100MCG/0.5ML IM 07/31/2020 11:51:00 AM EDT completed eCW1 ([facility]) Moderna #1 dose COVID-19(given elsewhere) SARSCOV2 VAC 100MCG/0.5ML IM 07/31/2020 11:51:00 AM EDT completed eCW1 ([facility]) Moderna #1 dose COVID-19(given elsewhere) SARSCOV2 VAC 100MCG/0.5ML IM 07/31/2020 11:51:00 AM EDT completed eCW1 ([facility]) COVID-19 VACCINE Moderna 07/31/2020 12:00:00 AM EDT completed [facility] Vaccine Series Complete: NOThis Data was Submitted to [facility]. Medications Medication Brand Name Start Date Product Form Dose Route Admi nistrative Instructions Pharmacy Instructions Status Indications Reaction Description Data Source(s) Clonazepam 0.5 MG Oral Tablet [Klonopin] Klonopin 09/03/2020 12 :00:00 AM EDT 0.5 mg by mouth completed <td ID="Me dicationRxNorm_5">067653</td><td ID="MedicationMedication_5">Klonopin</td><td ID="MedicationRoute_5">by mouth</td><td ID="MedicationRouteConcept_5">X44313</td><td ID="MedicationStartDate_5">09/03/2020</td><td ID="MedicationStopDate_5">10/03/2020</td><td ID="MedicationDosageFrequency_5">once a day</td><td ID="MedicationDuration_5">30</td><td ID="MedicationFormulaStrength_5">0.5 mg</td><td ID="MedicationDosageForm_5">tablet</td><td ID="MedicationDosageFormCode_5"></td><td ID="MedicationDosageDescription_5">as needed</td><td ID="MedicationMedicationId_5">[id number]</td><td ID="MedicationAccount_5">[id number]</td><td ID="MedicationNpid_5">[id number]</td><td ID="MedicationAuthorFirstName_5">Jose Ramon</td><td ID="MedicationAuthorLastName_5">Constantine</td><td ID="MedicationTaxonomyCode_5">[id number]</td><td ID="MedicationTaxonomyDesc_5">Nurse Practitioner</td><td ID="MedicationPhoneNumber_5">[phone]</td> [facility] ([facility]) 300 mg 03/24/2020 12:00:00 AM EST capsule 20 TAKE ONE CAPSULE BY MOUTH EVERY 12 HOURS FOR 10 DAYS TAKE ONE CAPSULE BY MOUTH EVERY 12 HOURS FOR 10 DAYS S OLD: 03/31/2020 [facility] multivitamin tablet 1 tablet 0616-2444-58 02/17/2020 09:00:00 AM EST 1 {tbl} Oral active 1 tablet, Oral , Daily Standard, First dose on Thu02/17/20 at 0900, For 30 days [facility] Medication administered onsite Oxybutynin chloride 5 MG Oral Tablet oxybutynin (DITRO INIGUEZ) tablet 5 mg oxybutynin (DITROPAN) tablet 5 mg 02/17/2020 09:00:00 AM EST 5 mg Oral active 5 mg, Oral, Every mo rning, First dose on Thu02/17/20 at 0900, For 30 days [facility] Medication administered onsite Cholecalciferol 400 UNT Oral Tablet [place] min D (CHOLECALCIFEROL) tablet 1,200 Units Vitamin D (CHOLECALCIFEROL) tablet 1,200 Units 02/17/2020 09 :00:00 AM EST 1200 U Oral active 1,200 Units, Ora l, Daily Standard, First dose on Thu02/17/20 at 0900, For 30 days [facility] Medication administered onsite Levothyroxine Sodium 0.025 MG Oral Table t levothyroxine (SYNTHROID) tablet 25 mcg levothyroxine (SYNTHROID) tablet 25 mcg 02/17/2020 07:30:00 AM EST 25 ug Oral active 25 mcg, Oral, Before Breakfast, First dose on Thu02/17/20 at 0730, For 30 days [facility] Medication administered onsite Magnesium Hydroxide 80 MG/ML Oral Suspen cary magnesium hydroxide (MILK OF MAGNESIA) 400 MG/5ML suspension 45 mL magnesium hydroxide (MILK OF MAGNESIA) 4 00 MG/5ML suspension 45 mL 02/16/2020 10:00:00 PM EST 45 mL Oral active 45 mL, Oral, Nightly, First dose on Thu02/16/20 at 2200, For 30 days
If serum creatinine > 2 notify provider before administering.
[facility] Medication administered onsite duloxetine 60 MG Delayed Release Oral Ca psule DULoxetine (CYMBALTA) DR capsule 120 mg DULoxetine (CYMBALTA) DR capsule 120 mg 02/16/2020 10:00:[address] 120 mg Oral active 120 mg, Or al, Nightly, First dose on Thu02/16/20 at 2200, For 30 days
Do not crush or chew
[facility] Medication administered onsite quetiapine 200 MG Oral Tablet QUEtiapine (SEROquel) ta blet 200 mg QUEtiapine (SEROquel) tablet 200 mg 02/16/2020 10:00:00 PM EST 200 mg Oral active 200 mg, Oral, Nightly, First dose on Thu02/16/20 at 22 00, For 30 days [facility] Medication administered onsite cetirizine hydrochloride 10 MG Oral Tablet cetirizine (ZYRTEC) tablet 10 mg cetirizine (ZYRTEC) tablet 10 mg 02/16/2020 09:00:00 PM EST 10 mg Oral active 10 mg, Oral, Every e vening, First dose on Thu02/16/20 at 2100, For 30 days [facility] Medication administered onsite topiramate 100 MG Oral Tablet topiramate (TOPAMAX) tab let 100 mg topiramate (TOPAMAX) tablet 100 mg 02/16/2020 09:00:00 PM EST 100 mg Oral active 100 mg, Oral, Every evening, First dose on Ayesha 02/16/20 at 2100, For 30 days [facility] Medication administered onsite Propranolol Hydrochloride 10 MG Oral Tablet propranolo l (INDERAL) tablet 10 mg propranolol (INDERAL) tablet 10 mg 02/16/2020 09:00:00 PM EST 10 mg Oral active 10 mg, Oral, 2 Times Daily, First dose on Ayesha 02/16/20 at 2100, For 30 days
Check vital signs before administering
[facility] Medication administered onsite Prazosin 2 MG Oral Capsule prazosin (MINIPRESS) capsul e 2 mg prazosin (MINIPRESS) capsule 2 mg 02/16/2020 09:00:00 PM EST 2 mg Oral active 2 mg, Oral, Every evening, First dose on Ayesha 02/16/20 at 2100, For 30 days
Check vital signs before administering
[facility] Medication administered onsite gabapentin 300 MG Oral Capsule gabapentin (NEURONTIN) capsule 300 mg gabapentin (NEURONTIN) capsule 300 mg 02/16/2020 05:00:00 PM EST 300 mg Oral active 300 mg, Oral, Three Times D aily Standard, First dose on Ayesha 02/16/20 at 1700, For 30 days [facility] Medication administered onsite Calcium Citrate 950 MG Oral Tablet calcium citrate (CA LCITRATE) tablet 1,900 mg calcium citrate (CALCITRATE) tablet 1,900 mg 02/16/2020 05:00:00 PM EST 1900 mg Oral active 1,900 mg, Oral, Three Times Daily Standard, First dose on Ayesha 02/16/20 at 1700, For 30 days [facility] Medication administered onsite Cefazolin 2000 MG Injection ceFAZolin (ANCEF) IVPB 2 g in dextrose (premix) ceFAZolin (ANCEF) IVPB 2 g in dextrose (premix) 02/16/2020 04:30:00 PM EST 2 g Intravenous active 2 g, Int ravenous, Administer over 30 Minutes, Every 8 hours, First dose on Ayesha 02/16/20 at 1630, For 16 hours
3 gram for patients weighing >/= to 120 kg
[facility] Medication administered onsite ondansetron (ZOFRAN) injection 4 [...] 1237, For 7 days [Order 2 End] [facility] Medication administered onsite Clonazepam 1 MG Oral Tablet clonazePAM (KLONOPIN) tabl et 0.5 mg clonazePAM (KLONOPIN) tablet 0.5 mg 02/16/2020 12:37:46 PM EST 0.5 mg Oral active 0.5 mg, Oral, Daily PRN, anxiety, Starting Ayesha 02/16/20 at 1237, For 30 days [facility] Medication administered onsite albuterol (PROVENTIL HFA) inhaler 2 puff [id number] 02/16/2020 12:37:46 PM EST 2 {puff} Inhalation active 2 pu ff, Inhalation, Every 4 hours PRN, Wheezing, Shortness of Breath, Starting Ayesha 02/16/20 at 1237, For 4 days
Shake the inhaler well before each spray.
[facility] Medication administered onsite metaxalone 800 MG Oral Tablet metaxalone (SKELAXIN) ta blet 800 mg metaxalone (SKELAXIN) tablet 800 mg 02/16/2020 12:37:45 PM EST 800 mg Oral active 800 mg, Oral, Four Times Daily-PRN, Mus rachell spasms, Starting Ayesha 02/16/20 at 1237, For 7 days [facility] Medication administered onsite sennosides, INTERMEDIATE 8.6 MG Oral Tablet senna tablet 2 tablet sen na tablet 2 tablet 02/16/2020 12:37:45 PM EST 2 {tbl} Oral active 2 tablet, Oral, Nightly PRN, Constipation, Starting Ayesha 02/16/20 at 1237, For 30 days [facility] Medication administered onsite Bisacodyl 10 MG Rectal Suppository bisacodyl (DULCOLAX ) suppository 10 mg bisacodyl (DULCOLAX) suppository 10 mg 02/16/2020 12:37:45 PM EST 10 mg Rectal active 10 mg, Rectal, Every 72 hours PRN, Constipation, Starting Ayesha 02/16/20 at 1237, For 30 days
Hold if patient has had BM within the past 2 days.
[facility] Medication administered onsite sennosides, INTERMEDIATE 35.2 MG/ML Oral Solution senna (SENOKO T) syrup 10 mL senna (SENOKOT) syrup 10 mL 02/16/2020 12:37:45 PM EST 10 mL Oral active 10 mL, Oral, Nightly PRN, Constipation, Starting Ayesha 02/16/20 at 1237, For 30 days [facility] Medication administered onsite Oxycodone Hydrochloride 5 MG Oral Tablet oxyCODONE (ROXICODONE) immediate release tablet 10 mg oxyCODONE (ROXICODONE) immediate release tablet 10 mg 02/16/2020 12:37:45 PM EST 10 mg Oral active 10 mg, Oral, Every 4 hours PRN, Severe Pain (Pain Scale Score 7-10), Starting Ayesha 02/16/20 at 1237, For 3 days
If no HOSPITAL INTERNSHIP or when HOSPITAL INTERNSHIP has been D/Cd.
Oxycodone immediate release is limited to 10 mg per dose. Higher doses ([facility] only) require Pain Service consultation and approval.
[facility] [facility] Medication administered onsite Oxycodone Hydrochloride 5 MG Oral Tablet oxyCODONE (ROXICODONE) immediate release tablet 5 mg oxyCODONE (ROXICODONE) immediate release tablet 5 mg 02/16/2020 12:37:45 PM EST 5 mg Oral active 5 mg, Oral, Every 4 hours PRN, Moderate Pain (Pain Scale Score 4-6), Starting Ayesha 02/16/20 at 1237, For 3 days
If no HOSPITAL INTERNSHIP or when HOSPITAL INTERNSHIP has been D/Cd.
Oxycodone immediate release is limited to 10 mg per dose. Higher doses (UH only) require Pain Service consultation and approval.
[facility] Medication administered onsite fentaNYL (SUBLIMAZE) (PF) injection 25 mcg [id number] 02/16/2020 12:37:45 PM EST 25 ug Intravenous active 25 m cg, Intravenous, Every 2 hours PRN, Other, breakthrough pain, Starting Ayesha 02/16/20 at 1237, For 3 days [facility] Medication administered onsite Benzocaine 15 MG / Menthol 3.6 MG Oral L ozenge benzocaine-menthol (CEPACOL) 15- 3.6 MG per lozenge 1 lozenge benzocaine-menthol (CEPACOL) 15-3.6 MG p er lozenge 1 lozenge 02/16/2020 12:37:45 PM EST 1 {lozenge} Mouth/Throat active 1 lozenge, Mouth/Throat, Every 2 hours PRN, Sore Throat, Starting Ayesha 02/16/20 at 1237, For 30 days [facility] Medication administered onsite Acetaminophen 325 MG Oral [...] mg from all sources in 24 hours.
[facility] Medication administered onsite NaCl infusion 0.9 % [id number] 02/16/2020 12:00:00 PM EST Intravenous active at 100 mL/hr, Intrav enous, Continuous, Starting Ayesha 02/16/20 at 1200, For 30 days
Hold for good PO intake.
[facility] Medication administered onsite HYDROmorphone (DILAUDID) injection 0.52 mg [id number] 02/16/2020 11:12:12 AM EST 0.5 mg Intravenous aborted 0.52 mg (rounded from 0.5 mg), Intravenous, Every 5 min PRN, Severe Pain (Pain Scale Score > 6), Starting Ayesha 02/16/20 at 1112, For 4 doses, Recovery [facility] Medication administered onsite sennosides, INTERMEDIATE 25 MG Oral Tablet Senna Laxative 25 MG Oral Tablet Senna Laxative 25 MG Oral Tablet 02/16/2020 12:00:00 AM EST Oral active Take by mouth Two Times Daily [facility] gabapentin 300 MG Oral Capsule Gabapentin 300 MG Oral Capsule (NEURONTIN) Gabapentin 300 MG Oral Capsule (NEURONTIN) 02/16/2020 12:00:00 AM EST 300 mg Oral active Take 1 capsule by mo ut Three times daily [facility] Ondansetron 4 MG Oral Tablet Ondansetron HCl 4 MG Oral Tablet (ZOFRAN) Ondansetron HCl 4 MG Oral Tablet (ZOFRAN) 02/16/2020 12:00:00 AM EST 4 mg Oral active Take 1 tablet by mouth every 8 (eight) hours as needed for up to 7 days [facility] sennosides, INTERMEDIATE 8.6 MG Oral Tablet Senna 8.6 MG Oral T ablet Senna 8.6 MG Oral Tablet 02/16/2020 12:00:00 AM EST 2 {tbl} Oral active Take 2 tablets by mouth nightly as needed [facility] Oxycodone Hydrochloride 5 MG Oral Tablet oxyCODONE HCl 5 MG Oral Tablet (ROXICODONE) oxyCODONE HCl 5 MG Oral Tablet (ROXICODONE) 02/16/2020 12:00:00 AM EST 5 mg Oral active Take 1 t ablet by mouth every 4 (four) hours as needed for up to 3 days, Max Daily Dose: 30 mg [facility] duloxetine 60 MG Delayed Release Oral Capsule [Cymbalta] Cym zaid 12/19/2019 12:00:00 AM EDT 60 mg completed <td ID="MedicationRxNorm_5">546913</td><td ID="MedicationMedication_5">Cymbalta</td><td ID="MedicationRoute_5"></td><td ID="MedicationRouteConcept_5"></td><td ID="MedicationStartDate_5">12/19/2019</td><td ID="MedicationStopDate_5">09/12/2020</td><td ID="MedicationDosageFrequency_5"></td><td ID="MedicationDuration_5">30</td><td ID="MedicationFormulaStrength_5">60 mg</td><td ID="MedicationDosageForm_5">capsule,delayed release(DR/EC)</td><td ID="MedicationDosageFormCode_5"></td><td ID="MedicationDosageDescription_5"></td><td ID="MedicationMedicationId_5">[id number]</td><td ID="MedicationAccount_5">[id number]</td><td ID="MedicationNpid_5">[id number]</td><td ID="MedicationAuthorFirstName_5">Jose Ramon</td><td ID="MedicationAuthorLastName_5">Constantine</td><td ID="MedicationTaxonomyCode_5">[id number]</td><td ID="MedicationTaxonomyDesc_5"> Nurse Practitioner</td><td ID="MedicationPhoneNumber_5">[phone]</td> [facility] ([facility]) duloxetine 60 MG Delayed Release Oral Capsule [Cymbalta] Cym zaid 12/19/2019 12:00:00 AM EDT 60 mg completed <td ID="MedicationRxNorm_4">148442</td><td ID="MedicationMedication_4">Cymbalta</td><td ID="MedicationRoute_4"></td><td ID="MedicationRouteConcept_4"></td><td ID="MedicationStartDate_4">12/19/2019</td><td ID="MedicationStopDate_4">12/02/2020</td><td ID="MedicationDosageFrequency_4"></td><td ID="MedicationDuration_4">30</td><td ID="MedicationFormulaStrength_4">60 mg</td><td ID="MedicationDosageForm_4">capsule,delayed release(DR/EC)</td><td ID="MedicationDosageFormCode_4"></td><td ID="MedicationDosageDescription_4"></td><td ID="MedicationMedicationId_4">[id number]</td><td ID="MedicationAccount_4">[id number]</td><td ID="MedicationNpid_4">[id number]</td><td ID="MedicationAuthorFirstName_4">Jose Ramon</td><td ID="MedicationAuthorLastName_4">Constantine</td><td ID="MedicationTaxonomyCode_4">[id number]</td><td ID="MedicationTaxonomyDesc_4"> Nurse Practitioner</td><td ID="MedicationPhoneNumber_4">[phone]</td> [facility] ([facility]) duloxetine 60 MG Delayed Release Oral Capsule [Cymbalta] Cym zaid 12/19/2019 12:00:00 AM EDT 60 mg completed <td ID="MedicationRxNorm_6">214564</td><td ID="MedicationMedication_6">Cymbalta</td><td ID="MedicationRoute_6"></td><td ID="MedicationRouteConcept_6"></td><td ID="MedicationStartDate_6">12/19/2019</td><td ID="MedicationStopDate_6">12/02/2020</td><td ID="MedicationDosageFrequency_6"></td><td ID="MedicationDuration_6">30</td><td ID="MedicationFormulaStrength_6">60 mg</td><td ID="MedicationDosageForm_6">capsule,delayed release(DR/EC)</td><td ID="MedicationDosageFormCode_6"></td><td ID="MedicationDosageDescription_6"></td><td ID="MedicationMedicationId_6">[id number]</td><td ID="MedicationAccount_6">[id number]</td><td ID="MedicationNpid_6">[id number]</td><td ID="MedicationAuthorFirstName_6">Jose Ramon</td><td ID="MedicationAuthorLastName_6">Constantine</td><td ID="MedicationTaxonomyCode_6">[id number]</td><td ID="MedicationTaxonomyDesc_6"> Nurse Practitioner</td><td ID="MedicationPhoneNumber_6">[phone]</td> [facility] ([facility]) quetiapine 100 MG Oral Tablet QUEtiapine Fumarate 100 MG Oral Tablet (SEROquel) QUEtiapine Fumarate 100 MG Oral Tablet (SEROquel) 12/13/2019 12:00:00 AM EDT 200 mg Oral active Take 200 mg by mouth [facility] Propranolol Hydrochloride 10 MG Oral Tab let Propranolol HCl 10 MG Oral Tablet (INDERAL) Propranolol HCl 10 MG Oral Tablet (INDERAL) 12/13/2019 12:00:00 AM EDT 1 {tbl} Oral active Take 1 t ablet by mouth Two Times Daily Noon & [address] [place] [address] topiramate 100 MG Oral Tablet Topiramate 100 MG Oral T ablet (TOPAMAX) Topiramate 100 MG Oral Tablet (TOPAMAX) 12/13/2019 12:00:00 AM EDT 1 {tbl} Ora l active Take 1 tablet by mouth every aki [facility] [address] [place] [address] quetiapine 300 MG Oral Tablet QUEtiapine Fumarate 300 MG Oral Tablet (SEROquel) QUEtiapine Fumarate 300 MG Oral Tablet (SEROquel) 12/13/2019 12:00:00 AM EDT 2 {tbl} Oral active Take 2 tablets by mouth [facility] duloxetine 30 MG Delayed Release Oral Capsule duloxetine 12/13/2019 12:00:00 AM EDT 30 mg by mouth completed <td ID="MedicationRxNorm_5">021806</td><td ID="MedicationMedication_5">duloxetine</td><td ID="MedicationRoute_5">by mouth</td><td ID="MedicationRouteConcept_5">M25889</td><td ID="MedicationStartDate_5">12/13/2019</td><td ID="MedicationStopDate_5">12/19/2019</td><td ID="MedicationDosageFrequency_5">every morning</td><td ID="MedicationDuration_5"></td><td ID="MedicationFormulaStrength_5">30 mg</td><td ID="MedicationDosageForm_5">capsule,delayed release(DR/EC)</td><td ID="MedicationDosageFormCode_5"></td><td ID="MedicationDosageDescription_5"></td><td ID="MedicationMedicationId_5">[id number]</td><td ID="MedicationAccount_5">[id number]</td><td ID="MedicationNpid_5">[id number]</td><td ID="MedicationAuthorFirstName_5">Jose Ramon</td><td ID="MedicationAuthorLastName_5">Constantine</td><td ID="MedicationTaxonomyCode_5">[id number]</td><td ID="MedicationTaxonomyDesc_5"> Nurse Practitioner</td><td ID="MedicationPhoneNumber_5">[phone]</td> [facility] cetirizine hydrochloride 10 MG Oral Tabl et Cetirizine HCl 10 MG Oral Tablet (ZYRTEC) Cetirizine HCl 10 MG Oral Tablet (ZYRTEC) 12/13/2019 12:00:00 AM EDT 1 {tbl} Oral active Take 1 tablet by mouth e [facility] Oxybutynin chloride 5 MG Oral Tablet Oxy butynin Chloride 5 MG Oral Tablet (DITROPAN) Oxybutynin Chloride 5 MG Oral Tablet (DITROPAN) 2019 12:00:00 AM EDT 1 {tbl} Oral active Take 1 tablet by mouth every morning [facility] Prazosin 2 MG Oral Capsule Prazosin HCl 2 MG Oral Caps ule (MINIPRESS) Prazosin HCl 2 MG Oral Capsule (MINIPRESS) 12/13/2019 12:00:00 AM EDT 1 {cap natalie} Oral active Take 1 capsule by mouth e very evening [facility] duloxetine 30 MG Delayed Release Oral Ca psule DULoxetine HCl 30 MG Oral Capsule Delayed Release Particles (CYMBALTA) DULoxetine HCl 30 MG Oral Capsule Delaye d Release Particles (CYMBALTA) 12/13/2019 12:00:00 AM EDT 30 mg Oral active Take 30 mg by mouth every [facility] duloxetine 60 MG Delayed Release Oral Ca psule DULoxetine HCl 60 MG Oral Capsule Delayed Release Particles (CYMBALTA) DULoxetine HCl 60 MG Oral Capsule Delaye d Release Particles (CYMBALTA) 12/13/2019 12:00:00 AM EDT 2 {capsule} Or al active Take 2 capsules by mouth nightly [facility] Levothyroxine Sodium 0.025 MG Oral Table t Levothyroxine Sodium 25 MCG Oral Tablet (SYNTHROID) Levothyroxine Sodium 25 MCG Oral Tablet (SYNTHROID) 12/13/2019 12:00:00 AM EDT 25 ug Oral active Take 25 mcg by mouth every morning before breakfast [facility] duloxetine 60 MG Delayed Release Oral Capsule duloxetine 11/15/2019 12:00:00 AM EDT 60 mg completed <td ID ="MedicationRxNorm_5">124436</td><td ID="MedicationMedication_5">duloxetine</td><td ID="MedicationRoute_5"></td><td ID="MedicationRouteConcept_5"></td><td ID="MedicationStartDate_5">11/15/2019</td><td ID="MedicationStopDate_5"></td><td ID="MedicationDosageFrequency_5"></td><td ID="MedicationDuration_5"></td><td ID="MedicationFormulaStrength_5">60 mg</td><td ID="MedicationDosageForm_5">capsule,delayed release(DR/EC)</td><td ID="MedicationDosageFormCode_5"></td><td ID="MedicationDosageDescription_5"></td><td ID="MedicationMedicationId_5">[id number]</td><td ID="MedicationAccount_5">[id number]</td><td ID="MedicationNpid_5">[id number]</td><td ID="MedicationAuthorFirstName_5">Jose Ramon</td><td ID="MedicationAuthorLastName_5">Constantine</td><td ID="MedicationTaxonomyCode_5">[id number]</td><td ID="MedicationTaxonomyDesc_5"> Nurse Practitioner</td><td ID="MedicationPhoneNumber_5">[phone]</td> [facility] ([facility] Prazosin 2 MG Oral Capsule prazosin 01/03/2019 12:00:00 AM EDT 2 mg by mouth completed <td ID="Medicat ionRxNorm_5">176980</td><td ID="MedicationMedication_5">prazosin</td><td ID="MedicationRoute_5">by mouth</td><td ID="MedicationRouteConcept_5">X62740</td><td ID="MedicationStartDate_5">01/03/2019</td><td ID="MedicationStopDate_5">09/22/2020</td><td ID="MedicationDosageFrequency_5">at bedtime</td><td ID="MedicationDuration_5">30</td><td ID="MedicationFormulaStrength_5">2 mg</td><td ID="MedicationDosageForm_5">capsule</td><td ID="MedicationDosageFormCode_5"></td><td ID="MedicationDosageDescription_5"></td><td ID="MedicationMedicationId_5">[id number]</td><td ID="MedicationAccount_5">[id number]</td><td ID="MedicationNpid_5">[id number]</td><td ID="MedicationAuthorFirstName_5">Jose Ramon</td><td ID="MedicationAuthorLastName_5">Constantine</td><td ID="MedicationTaxonomyCode_5">[id number]</td><td ID="MedicationTaxonomyDesc_5">Nurse Practitioner</td><td ID="MedicationPhoneNumber_5">[phone]</td> [facility] ([facility]) Prazosin 2 MG Oral Capsule prazosin 01/03/2019 12:00:00 AM EDT 2 mg by mouth completed <td ID="Medicat ionRxNorm_4">384291</td><td ID="MedicationMedication_4">prazosin</td><td ID="MedicationRoute_4">by mouth</td><td ID="MedicationRouteConcept_4">Y13093</td><td ID="MedicationStartDate_4">01/03/2019</td><td ID="MedicationStopDate_4">10/03/2020</td><td ID="MedicationDosageFrequency_4">at bedtime</td><td ID="MedicationDuration_4">30</td><td ID="MedicationFormulaStrength_4">2 mg</td><td ID="MedicationDosageForm_4">capsule</td><td ID="MedicationDosageFormCode_4"></td><td ID="MedicationDosageDescription_4"></td><td ID="MedicationMedicationId_4">[id number]</td><td ID="MedicationAccount_4">[id number]</td><td ID="MedicationNpid_4">[id number]</td><td ID="MedicationAuthorFirstName_4">Jose Ramon</td><td ID="MedicationAuthorLastName_4">Constantine</td><td ID="MedicationTaxonomyCode_4">[id number]</td><td ID="MedicationTaxonomyDesc_4">Nurse Practitioner</td><td ID="MedicationPhoneNumber_4">[phone]</td> [facility] ([facility]) Insurance Providers Payer name Policy type / Coverage type Policy ID Covered alliance party ID Covered alliance party's relationship to cox Policy Cox Plan Information [facility] Comm Plan Medicaid F [id number] SELF [id number] [facility] MEDICAID [id number] Ana [id number] [facility] COMMUNITY PLAN ALICE HYDE MEDICAL CENTERO [id number] SP [id number] [facility] COMMUNITY PLAN ALICE HY[facility] MEDICAL [facility] [id number] SP [id number] [facility] I [id number] Self [id number] [facility] I [id number] Self [id number] [facility] I [id number] Self [id number] [facility]-Medicaid [id number] [facility]-Medicaid [id number] [facility]-Medicaid [id number] [facility]-Medicaid [id number] ANSI-Medicaid [id number] ANSI-Medicaid [id number] ANSI-Medicaid [id number] ANSI-Medicaid [id number] ANSI-Medicaid [id number] ANSI-Medicaid [id number] ANSI-Medicaid [id number] ANSI-Medicaid [id number] ANSI-Medicaid [id number] [facility] [id number] SP [id number] MEDICAID [id number] SP [id number] [facility] Health Maintenance Organization (HMO) [id number] Self [id number] [facility] COMMUNITY PLAN MCDHMO [id number] SP [id number] HC COMMUNITY PLAN MCDHMO [id number] SP [id number] [facility] Community Plan Commercial [id number] Self [facility](MCAID) O [id number] S [id number] [employer] Commercial [id number] Self [facility] Community Plan Health Maintenance Organization (HMO) [id number] Self MEDICAID [id number] SP [id number] [employer](MCAID) P [id number] S [id number] STATE INSURANCE FUND [id number] SP [id number] SELF PAY UNAVAILABLE SP UNAVAILA [facility] [id number] SP [id number] [facility] COMMUNITY PLAN MCDHMO [id number] SP [id number] [facility](MCAID) O [id number] S [id number] [facility] COMMUNITY PLAN MCDHMO [id number] SP [id number] [facility] COMMUNTY PLAN [id number] [facility] COMMUNITY PLAN XIX -RECURRING [id number] 18 [id number] [facility] AMERICHOICE XIX -HMO [id number] ANSI-Medicaid [id number] Problems, Conditions, and Diagnoses Code Display Name Description Problem Type Effective Dates Data Source(s) T85.192A Other mechanical complicatio n of implanted electronic neurostimulator of spinal cord electrode (lead), initial encounter Other mechanical complication of implanted electronic neurostimulator of spinal cord electrode (lead), initial encounter Diagnosis 04/24/2020 08:19:17 AM [facility] R69 Illness, unspecified Illness, unspecified Diagnosis 02/16/2020 05:32:00 AM [facility] Back pain Back pain Diagnosis 02/16/2020 05:32:00 AM [facility] M54.5 Low back pain Low back pain Diagnosis 02/13/2020 03:33:28 PM [facility] F10.10 Alcohol abuse, uncomplicated Alcohol Use Disorder, Mil d Condition 10/17/2020 12:00:00 AM EDT [facility] ([facility]) F40.01 Agoraphobia with panic disorder Agoraphobia with panic disorder Condition 10/17/2020 12:00:00 AM EDT [facility] ([facility]) F31.81 Bipolar II disorder Bipolar II Disorder Condition 0 10/17/2020 12:00:00 AM EDT [facility] ([facility]) F33.41 Major depressive disorder, recurrent, in partial remission Major Depressive Disorder, Recurrent episode, In partial remission Condition 10/17/2020 12:00:00 AM EDT [facility] ([facility]) F43.12 Post-traumatic stress disorder, chronic Post-traumatic stress disorder, chronic Condition 10/17/2020 12:00:00 AM EDT [facility] ([facility]) G47.30 [id number] Sleep apnea, unspecified type Problem 05/03/2020 12:00:00 AM EST eCW1 ([facility]) F17.200 [id number] Smoking Problem 02/14/2020 12:00:00 AM ES T eCW1 ([facility]) Z68.41 [id number] Body mass index [BMI]40.0-44.9, adult Pro blem 02/14/2020 12:00:00 AM EST eCW1 ([facility]) E66.01 [id number] Morbid (severe) obesity due to excess antonella ories Problem 02/14/2020 12:00:00 AM EST eCW1 ([facility]) G89.28 Chronic postoperative pain Other chronic postprocedura l pain Problem 01/18/2020 12:00:00 AM EST eCW1 ([facility]) G89.29 Chronic pain Other chronic pain Problem 01/03/2020 12:0 0:00 AM EDT eCW1 ([facility]) Surgeries/Procedures Procedure Description Date Indications Data Source(s) Extended Individual Psychotherapy - 45 min 10/17/2020 12:00:00 AM EDT - 10/17/2020 12:00:00 AM EDT [facility] ([facility]) Extended Individual Psychotherapy - 45 min 12:00:00 AM EDT [facility] ([facility]) Brief Individual Psychotherapy - 30 min 09/14/2020 12:00:00 AM EDT - 09/14/2020 12:00:00 AM EDT [facility] ([facility]) Brief Individual Psychotherapy - 30 min 09/14/2020 12: 00:00 AM EDT [facility] ([facility]) Extended Individual Psychotherapy - 45 min 08/30/2020 12:00:00 AM EDT - 08/30/2020 12:00:00 AM EDT [facility] ([facility]) Extended Individual Psychotherapy - 45 min 12:00:00 AM EDT [facility] ([facility]) OFFICE OUTPATIENT VISIT 15 MINUTES 08/28 12:00:00 AM EDT - 08/28/2020 12:00:00 AM EDT [facility] ([facility]) OFFICE OUTPATIENT VISIT 15 MINUTES 08/28/2020 12:00:00 AM EDT [facility] ([facility]) Extended Individual Psychotherapy - 45 min 08/16/2020 12:00:00 AM EDT - 08/16/2020 12:00:00 AM EDT [facility] ([facility]) Extended Individual Psychotherapy - 45 min 12:00:00 AM EDT [facility] ([facility]) OFFICE OUTPATIENT VISIT 15 MINUTES 08/14 12:00:00 AM EDT - 08/14/2020 12:00:00 AM EDT [facility] ([facility]) OFFICE OUTPATIENT VISIT 15 MINUTES 08/14/2020 12:00:00 AM EDT [facility] ([facility]) Brief Individual Psychotherapy - 30 min 07/31/2020 12:00:00 AM EDT - 07/31/2020 12:00:00 AM EDT [facility] ([facility]) Brief Individual Psychotherapy - 30 min 07/31/2020 12: 00:00 AM EDT [facility] ([facility]) OFFICE OUTPATIENT VISIT 15 MINUTES 06/14 12:00:00 AM EDT - 06/14/2020 12:00:00 AM EDT [facility] ([facility]) Psychotherapy ADD ON - 30 Minutes 06/14/2020 12:00:00 AM EDT [facility] ([facility]) OFFICE OUTPATIENT VISIT 15 MINUTES 06/14/2020 12:00:00 AM EDT [facility] ([facility]) OFFICE OUTPATIENT VISIT 15 MINUTES 06/07 12:00:00 AM EDT - 06/07/2020 12:00:00 AM EDT [facility] ([facility]) OFFICE OUTPATIENT VISIT 15 MINUTES 06/07/2020 12:00:00 AM EDT [facility] ([facility]) Extended Individual Psychotherapy - 45 min 06/07/2020 12:00:00 AM EDT - 06/07/2020 12:00:00 AM EDT [facility] ([facility]) Extended Individual Psychotherapy - 45 min 12:00:00 AM EDT [facility] ([facility]) TEMPMHCTelemed 30" Psychotherapy 12:00:00 AM EST - 05/10/2020 12:00:00 AM EST [facility] ([facility]) TEMPMHCTelemed 30" Psychotherapy 05/10/2020 12:00:00 A M EST [facility] ([facility]) MHC Telemed E/M Lvl 3--Est pt 04/25/2020 12:00:00 AM EST - 04/25/2020 12:00:00 AM EST [facility] ([facility]) Psychotherapy ADD ON - 30 Minutes 04/25/2020 12:00:00 AM EST [facility] ([facility]) MHC Telemed E/M Lvl 3--Est pt 04/25/2020 12:00:[address] [facility] ([facility]) Brief Individual Psychotherapy - 30 min 04/09/2020 12:00:00 AM EST - 04/09/2020 12:00:00 AM EST [facility] ([facility]) Brief Individual Psychotherapy - 30 min 04/09/2020 12: 00:00 AM EST [facility] ([facility]) Extended Individual Psychotherapy - 45 min 03/29/2020 12:00:00 AM EST - 03/29/2020 12:00:00 AM EST [facility] ([facility]) Extended Individual Psychotherapy - 45 min 12:00:00 AM EST [facility] ([facility]) RADEX SPINE LUMBOSACRAL 2/3 VIEWS <td>XR SPINE LUMBAR 2-3 VIEWS [id number]</td><td>Routine</td><td>02/16/2020 2:08 PM EST</td><td></td><td> </td> 02/16/2020 02:08:30 PM [facility] FLUOROSCOPY SPX <1 HOUR PHYSICIAN TIME <td>FLUORO NON- RAD PROC-OR 74634</td><td>Routine</td><td>02/16/2020 10:19 AM EST</td><td> Diagnosis unknown</td><td> </td> 02/16/2020 10:19:23 AM EST Diagnosis unknown [facility] Diagnosis unknown POCT ISTAT BHCG <td>POCT ISTAT BHCG</td><td> Routine</td><td>02/16/2020 6:57 AM EST</td><td></td><td> </td> 02/16/2020 06:57:00 AM [facility] CONFIRMATORY TYPE <td>CONFIRMATORY TYPE</td><t d>Routine</td><td>02/16/2020 6:45 AM EST</td><td></td><td> </td> 02/16/2020 06:45:00 AM [facility] MHC Telemed E/M Lvl 3--Est pt 02/14/2020 12:00:00 AM EST - 02/14/2020 12:00:00 AM EST [facility] ([facility]) Psychotherapy ADD ON - 30 Minutes 02/14/2020 12:00:00 AM EST [facility] ([facility]) MHC Telemed E/M Lvl 3--Est pt 02/14/2020 12:00:[address] [facility] ([facility]) XR CHEST FRONTAL AND LATERAL [id number] <td>XR CHEST FRONTA L AND LATERAL [id number]</td><td>Routine</td><td>02/13/2020 3:50 PM EST</td><td> Low back pain, unspecified back pain laterality, unspecified chronicity, unspecified whether sciatica present</td><td> </td> 02/13/2020 03:50:25 PM EST Low back pain, unspecified back pain lat erality, unspecified chronicity, unspecified whether sciatica present [facility] Low back pain, unspecified back pain lat erality, unspecified chronicity, unspecified whether sciatica present LAB RESULTS (OUTSIDE/HISTORICAL) <td>LAB RESULTS (OUTSIDE/HISTORICAL)</td><td></td><td>02/13/2020 12:31 PM EST</td><td></td><td></td> 02/13/2020 12:31:42 PM EST [facility] CARDIAC REPORT <td>CARDIAC REPORT</td><td>< /td><td>02/13/2020 12:30 PM EST</td><td></td><td></td> 02/13/2020 12:30:40 PM EST [facility] CARDIAC REPORT <td>CARDIAC REPORT</td><td>< /td><td>02/08/2020 3:53 PM EST</td><td></td><td></td> 02/08/2020 03:53:18 PM EST [facility] CARDIAC REPORT <td>CARDIAC REPORT</td><td>< /td><td>02/08/2020 3:52 PM EST</td><td></td><td></td> 02/08/2020 03:52:38 PM EST [facility] CARDIAC REPORT <td>CARDIAC REPORT</td><td>< /td><td>02/08/2020 3:51 PM EST</td><td></td><td></td> 02/08/2020 03:51:28 PM EST [facility] TEMPMHCTelemed 30" Psychotherapy 020 12:00:00 AM EST - 01/27/2020 12:00:00 AM EST [facility] ([facility]) TEMPMHCTelemed 30" Psychotherapy 01/27/2020 12:00:00 A M EST [facility] ([facility]) Extended Individual Psychotherapy - 45 min 12/30/2019 12:00:00 AM EDT - 12/30/2019 12:00:00 AM EDT [facility] ([facility]) Extended Individual Psychotherapy - 45 min 0 12:00:00 AM EDT [facility] ([facility]) MHC Telemed E/M Lvl 3--Est pt 12/19/2019 12:00:00 AM EDT - 12/19/2019 12:00:00 AM EDT [facility] ([facility]) MHC Telemed E/M Lvl 3--Est pt 12/19/2019 12:00:00 AM E DT [facility] ([facility]) Extended Individual Psychotherapy - 45 min 12/09/2019 12:00:00 AM EDT - 12/09/2019 12:00:00 AM EDT [facility] ([facility]) Extended Individual Psychotherapy - 45 min 0 12:00:00 AM EDT [facility] ([facility]) Results ID Date Data Source [id number] 12/24/2020 12:00:00 AM EDT [facility] Name Value Range Interpretation Code Description Data Luzma rce(s) Supporting Document(s) SARS-COV 2 PCR POSITIVE [facility] This lab was ordered by [facility] and reported by [facility]. ID Date Data Source [id number] 12/24/2020 12:00:00 AM EDT [facility] Name Value Range Interpretation Code Description Data Luzma rce(s) Supporting Document(s) SARS-CoV-2 (COVID-19) RNA [Presence] in Respiratory specimen by CRISTIAN with probe detection Detected [facility] This lab was ordered by [employer] [facility] ID Date Data Source [id number] 05/03/2020 01:50:00 PM EST [facility] Name Value Range Interpretation Code Description Data Luzma rce(s) Supporting Document(s) SARS COVID ANTIGEN NEGATIVE [facility] This lab was ordered by WINSTON kearns nd reported by [facility]. ID Date Data Source [id number] 04/24/2020 03:21:[address] [facility] Name Value Range Interpretation Code Description Data Luzma rce(s) Supporting Document(s) Progress Note [facility] OYKYOf2dJzCSIpRt14/TLZeoOSKhq4IfEHyxLDm0IJcqSYKvJ2ScOIG6jB8jQIX0ANeENhPnBzRsBqV4 lbm [file] AgICAgICAgICAgICAgICAgICAgICAgICAgICAgICAgICAgICAgICAgICAgICAgICAgICAgICAgICAgIC AgICAgICAgICAgICAgICAgDQogICAgICAgICAgICAgICAgICAgICAgICAgICAgICAgICAgICAgICAgIC AgICAgICAgICAgICAgICAgICAgICAgICAgICAgICAg ICAgICAgICAgICAgICAgICAgICAgICAgICAgDQogICAgICAgICAgICAgICAgICAgICAgICAgICAgICAg ICAgICAgICAgICAgICAgICAgICAgICAgICAgICAgICAgICAgICAgICAgICAgICAgICAgICAgICAgICAg ICAgICAgICAgDQogICAgICAgICAgICAgICAgICAgIC AgICAgICAgICAgICAgICAgICAgICAgICAgICAgICAgICAgICAgICAgICAgICAgICAgICAgICAgICAgIC AgICAgICAgICAgICAgICAgICAgDQogICAgICAgICAgICAgICAgICAgICAgICAgICAgICAgICAgICAgIC AgICAgICAgICAgICAgICAgICAgICAgICAgICAgICAg ICAgICAgICAgICAgICAgICAgICAgICAgICAgICAgDQogICAgICAgICAgICAgICAgICAgICAgICAgICAg ICAgICAgICAgICAgICAgICAgICAgICAgICAgICAgICAgICAgICAgICAgICAgICAgICAgICAgICAgICAg ICAgICAgICAgICAgDQogICAgICAgICAgICAgICAgIC AgICAgICAgICAgICAgICAgICAgICAgICAgICAgICAgICAgICAgICAgICAgICAgICAgICAgICAgICAgIC AgICAgICAgICAgICAgICAgICAgICAgDQogICAgICAgICAgICAgICAgICAgICAgICAgICAgICAgICAgIC AgICAgICAgICAgICAgICAgICAgICAgICAgICAgICAg ICAgICAgICAgICAgICAgICAgICAgICAgICAgICAgICAgDQogICAgICAgICAgICAgICAgICAgICAgICAg ICAgICAgICAgICAgICAgICAgICAgICAgICAgICAgICAgICAgICAgICAgICAgICAgICAgICAgICAgICAg ICAgICAgICAgICAgICAgDQogICAgICAgICAgICAgIC AgICAgICAgICAgICAgICAgICAgICAgICAgICAgICAgICAgICAgICAgICAgICAgICAgICAgICAgICAgIC FbHWXzNPAcKTGuQWStGNSrIDPxIFUeHWMjCTa2D7htLVSuWTNfYK2tCRr3Ei8+TTuWSsAqPYT7vlWuxA 5NKK8qn6FgQDpcBTAzn6CtMCm9NS1HHDTvYYzwRY9G OEhpje1SMHUkHJNrkAETy0wnBvVyYBP0TLIfFbbbPC4PGWZvQ1vmjpBuCNBwWLRAJGxmWCZUSMnyQGFT LL8UEyMvM5TtmF41QKSBOa5+ENpkcbNmYpxRPjY5ESLxt4QkSXc2QM3WNMYaGlwlb2IdFkYpAOBDQQho RP0XOYM0GOEnIXQmEe2DLSPlM416qbUuEE5OAa9FUm NhNV8lkb9LUaFuKVXoUnyTXfb5QEiyQK4VaKNxCFyBpo6rzcFnzkWBc2GmacIxoAEHEDVgdwR6KR4wE5 6dgTerPNXTXLE2FMAiST7iDQSfIUVaFwRyIKODOP5KCTIyIGDhjUQtQVPbIDSYIM0THDnyLIK2DIHkrh QyzUOsZVkcKP7KJZKisfAaJhvqYFWIWXn+Bi9EZD6r t1SdFIktQFTiVA7xch0JLEqOQsWhR5E0rVYcV6A2XJjqPm6JURHlZKCoSoayQHLUAUrqST4KLW2gdhM3 SH9HxLNrALFkAGVvpBCsLOs1T08pjAEnIGlwHB6OGCM+Devin+Up3YCGNcLCIpUEKhHdEkGWBUVzCsZ9Im X4RWf7JfB3XsSK19cPqbieNyOGmfBC1WHX3aCHSnME GEWU3MvSTjvB5zzvLqQQBsDGMBAcWjS48nnALfIZDhIRH4QYHhUl9ZHJSbS0FgbrInoAojicQsPAZjAO UUNR4OIYshljIpyKVtnLpyGB90iSdaUO3EBs1GKbZvTN6hfl9SmIObHh9RTUXnZj5GSAGbBGLmNLKrHZ G5WZJlJkWoGNhdEFYjIULaCKG5VZLaEXLoEY2MZvTp IKJzCrsfSJKsKDWtGUJawo5RMOAoKHFmICV9JlDrFHOxERMlELheKHRhWIAkNRB6HMLlUKKkOV8RKrTy XVZpAAYdCWVtSKPxLSHqce6LCUEgQJMtMYTmDOWaDTMbZQUuCCydRYYaRNK1TdGhNVOtBEEwEP3TLlUi BOOuDJq9BYzcRFYwNYXawk6LHXEsSXGqKOUePNCdBU FlFCZkUUptMIVtZOB7TsM9ZJXlHYIgFL4DIpIoJGAkBWB4SLkxGEYrMLEtvf3UCGYvILCuJJi2XCZoJH JtSHCgOEmnHJGfINKlVIt5QCJdLDElIG8HLiJwBMRoJQE8WjdxSFIdQWHujh7RXIBuBCSeQcVpCTDcGD EfFDFlARxdSVNoMZEkOyP0JWLnQFIcUU0QMbNlGLWk JeU3UDshBFNhAPIxco3OWRFiBCJlGXG9UxIhYVMzIMClGZceJZFiHEK5ZjdsFGXvCKHmPD8JFfDzTPTy SvH3ZUZrVHYwMAItap7UFUFkKNPjALA2VlJcQSGzIQTsOYriLFPoNHG3RmLuNRXxTDInTM9VKcUhJEFq VaL5FZYnSIYcVSFztg8UXHYlRQIuDIb2RjUgRFCsWS VhBHvoAXZqHHW0OQV7NSQcNDRsXN4GNsLmOQIrYxheVXXsKYWrBROexx4XFPVyJGRnAhT3XyNsBZCnRX EhFSgmMHBdRSO4RiE2ZLFoTRWpHI9VMlPhFHPvPedvZgAbMMZmQQXrti1KPHFeZEIbNCZ5WhPeJOKcDY GgWDtzCLRoWBQ5Guw9BYWkRQSwOM2HSfZhQSjmVCMR Pke1IDtgC5q1RBWjKu1WL0Mqr2SyGoEmCBMGUAejYR5iguCiJKLpXj0ZS2wHBaw4JwJxCCp4EJLeEZI0 EGOkHHPrLkR7ITZ1QtcdBuDlNW7wOQckQ7P8SWA9HFR1YaroCHV7BKKeDRB9NeajMMDoVkHaSeSbBG2Q Df0UQpG9NFP8xPOaWf5LZxb2CBZVPtDqNK2BXIr= ID Date Data Source [id number] 03/24/2020 12:00:00 AM EST [facility] Name Value Range Interpretation Code Description Data Luzma rce(s) Supporting Document(s) SARS-CoV2 Rapid Antigen Negative [facility] and reported by [facility]. ID Date Data Source [id number] 02/28/2020 04:30:26 PM [facility] XR THORACIC SPINE AP AND LATERALFINAL RE [...] rce(s) Supporting Document(s) ID Date Data Source [id number] 02/28/2020 03:45:02 PM [facility] Name Value Range Interpretation Code Description Data Luzma rce(s) Supporting Document(s) Progress Note [facility] NJIUEe1nNyBAChLv56/NIVecAVDso0QlNDkcLPq4KIgwWGVhA9OlWOA1yR8tKRD3KSsAVbFaXlZcSgA0 lbm [file] A5FPFaJPJrOxVtLuFmYXP0Mx2aTXNBDe0+MGkwzRQhcLkdPHCHWcD8OfT5LTdyDVXTXb8D ID Date Data Source [id number] 02/28/2020 03:37:08 PM [facility] XR ABDOMEN AP SUPINE AND LATERAL VIEW [...] level and extends cranially out of the apixj-km-rpul. The wire superimposed over the battery pack is suboptimally evaluated. The remainder of the wire appears intact.IMPRESSION:1. Battery pack overlapping the right lower quadrant posteriorly. 2. Wire extends from the battery pack and overlaps the spinal column at the T11 vertebral level and extends cranially out of the sfykw-gr-hvli. 3. Wire superimposed the battery pack is suboptimally evaluated. The remainder of the wire appears intact.This document has been electronically signed by Jeanne Beckett MD on 02/28/2020 3:34 PM Name Value Range Interpretation Code Description Data Luzma rce(s) Supporting Document(s) ID Date Data Source [id number] 02/22/2020 10:01:21 AM [facility] Name Value Range Interpretation Code Description Data Luzma rce(s) Supporting Document(s) Operative Note [facility] FROQGw2kCfLKFnLr75/RBNhuBQCeb1RcIXdgCDh0VCavROBiV1YqQBC4kJ0sKSC3SWoANzRzGpWmCkD8 [facility] JlSowIUtWtEAXyPyaBUbUrFVhtNdkdkONaGS8GlBW1EBIuV26cASGnKOSgW6NiBAR6Pht+Pm0OBKOtlU KzSB6FJqmJ0H1lgxk4ZR6m3P7RvMpEM8E1afwR1LmRGozoTuxT7leDjHmWMv3b61hG8NTVr9/VXrSayf qrV+H8i9A2RoHByLij1fHarITO//pR5FtG23ld0q/6 e2amsFss/voXUU/Taj2t/qSXEwpUG3mfKWH4tvL4S67UaJWtjOvfPF9gcLrqWj/xNI1TxccQMfaNRyDR y0Q1fweI9cbc2wvR8QephQJbSCEwO34Bup8ShFrUH5BYMsgGFkMw1RLiPQDCHxVt3TXzKfQR0NWzZ9pp XxY262potIkGAqpq/ettNQyt32pDuD9c+rZIxZVb/B yyTWYUpbaUJm7xBqSmH1cHqWrxCn4Sa7E/ggwir9B11/w85BA63ff71fLrYICIpjhVI6AanbaKvV6ZVh CBX5eoMyPrVwrw1hpuVA2cjGDf8Hy0XD2gf38JNNb/fzxDxju582o3D67xeWXgBrXTqrDZ0B+R5D0tPP 1tJtgBwR9gpuHQpN/g6R1IcfzpUMy97Tl7yk4QW5dq KrOcwOKpwrQZIvpFCdKDoz7YAtxGSUnyUt2kwI4R3K5B9BqcsZExrHTAJADDSMpfmHqpuAgqddFP4QFs 3RpjyKRuhhSvsqZQNLbUKqh8FrXBLOrhqNEn1b4LfaKoW7PeVLu4gimUurNDTI+TijufRcXtCLMv2Ty5 8qjBod6UKzmUzuJxo+jkCCKQUSsk2xzcx6IzENzpUB P4Gc13z6utsIvnBkf5rlE+hKcqUzHdyAwXLk6K6CJQHfOyxaezRPt0f1MXUPwRdSSJYF1Z2jHdzkU2oS tarah+P4G/59e0qIJ+ozanF2F4T+N7ZeMj3K1kmQLMwgG7IeMmGVtl+G1p7SotS+CaydpzqwESiq827mG44 m+QB3s7y28BMOSGLZSw9cdUY38ohtKsW+hWspCFbWF Master Sheet Clerk/O4hKKFHil5GDBETTnRW0MyFa97zlOZhFFjqMkpJesXA+YisKgLDEDJXMbAS1OzqHsYkMiatdRpH3 [file] jb7Ghwrzqm2hCCipl6QnxyTC9bywuyUwAFpltbakFa mAY7zHP3O/jsa9k5VYpEEoVxTJQ2mcZlxT6YAB9wr5CcKDr9IZRva2HmVVsyHOo0EKaeUAUbO6V6fPQm UVQtVR1UEXKjCA6BMZLavqChAzEpTPPJFaPxYBErKlKxm5WbH7OiCPCcQWXFLKvzCXKfQ83zCTtoQf57 NTzyEXRgJjIuUJa6Jg4TOsGoIZOwD84sdMLqsSKuRU EtBLKRNrIlMVYwT2UnzGEuGUrqR7GnH0SkRO9ufTIcNA6aoKPhZ0YbL5FhozzhREGFRvZnIRJmHPxnAM AvSyBmYWxzZSA+Io3BMFP+Nw3VWS2cx0BiVJq7TWYeu2VlEPenSZj3F9GxuVUvdjKbGpsxlUQTAUBwBW QmT4mmalm9cYQuVvKgIc0CAkQvi6ZhATMeXHxSbl7h UPQttsMV79UH/5Wba3gZeqmfceDrOH0lymnCRKkM57QzjcRUYCKuiRLw7hN/De Dios/UlvIt0Q3nF9cSkPTL [file] ICAgICAgICAgICAgICAgICAgICAgICAgICAgICAgIC AgICAgICAgICAgICAgICAgICAgICANCiAgICAgICAgICAgICAgICAgICAgICAgICAgICAgICAgICAgIC AgICAgICAgICAgICAgICAgICAgICAgICAgICAgICAgICAgICAgICAgICAgICAgICAgICAgICAgICAgIC AgICANCiAgICAgICAgICAgICAgICAgICAgICAgICAg ICAgICAgICAgICAgICAgICAgICAgICAgICAgICAgICAgICAgICAgICAgICAgICAgICAgICAgICAgICAg ICAgICAgICAgICAgICANCiAgICAgICAgICAgICAgICAgICAgICAgICAgICAgICAgICAgICAgICAgICAg ICAgICAgICAgICAgICAgICAgICAgICAgICAgICAgIC AgICAgICAgICAgICAgICAgICAgICAgICANCiAgICAgICAgICAgICAgICAgICAgICAgICAgICAgICAgIC AgICAgICAgICAgICAgICAgICAgICAgICAgICAgICAgICAgICAgICAgICAgICAgICAgICAgICAgICAgIC AgICAgICANCiAgICAgICAgICAgICAgICAgICAgICAg ICAgICAgICAgICAgICAgICAgICAgICAgICAgICAgICAgICAgICAgICAgICAgICAgICAgICAgICAgICAg ICAgICAgICAgICAgICAgICANCiAgICAgICAgICAgICAgICAgICAgICAgICAgICAgICAgICAgICAgICAg ICAgICAgICAgICAgICAgICAgICAgICAgICAgICAgIC AgICAgICAgICAgICAgICAgICAgICAgICAgICANCiAgICAgICAgICAgICAgICAgICAgICAgICAgICAgIC AgICAgICAgICAgICAgICAgICAgICAgICAgICAgICAgICAgICAgICAgICAgICAgICAgICAgICAgICAgIC AgICAgICAgICANCiAgICAgICAgICAgICAgICAgICAg ICAgICAgICAgICAgICAgICAgICAgICAgICAgICAgICAgICAgICAgICAgICAgICAgICAgICAgICAgICAg ICAgICAgICAgICAgICAgICAgICANCiAgICAgICAgICAgICAgICAgICAgICAgICAgICAgICAgICAgICAg ICAgICAgICAgICAgICAgICAgICAgICAgICAgICAgIC AgICAgICAgICAgICAgICAgICAgICAgICAgICAgICANCjw/fOJpZ7wlkLCcgoG0U4xsGx7JXh9FTU9ce1 CxOQPsSZvnjqFvBuoIPsEdBRBqPkxDDzr3URjqVS3RmNEkS1JxH5OcTCjsCO4OLUJgFYCgkEGcMJOkIM LhEqK6VRQqXNqaHT4WxBFhGLxoJIHqZLRiKiLwJDUb EZ8LFFKyE568daMtRw5MWe3LYaUuPH0acp3QDWgcEOXrTwvQBjx9GUxoSP7ScENvcBFnCKJnIRTLGkEa D3uep2QkVkNcRJVVSYbpST4Wn9TjpLTuVLd+Qo5JUX0kg6UuDRtaBYNwQL0bas1XAEkBBhTgT0LezDga HK2aSGLfoIy9XUZFs8MnTFB1RWFbDTpzphWbkyZBTB ExLMcsaFakHQMkMSKlPWJxYt7qSCPbFUXdLfG6AMQRSK7HSMFxAQOqlSImQAQbDRUESP8NLGidGYL0VS HexoYfnWXfGHrfYS6UBMSigrTbKQshUCHIXMs+Iu2WUI0di4MaHJduFUTxWC8uwr4GQFiVYeLfI0T6wB ChD1Z9WXcxKr7STEMmRDCxACfgFGPIRSlpAP5UJH0c ypH9LL7CzUTfOZSrIJEzuCKpXJs7T09xhIPeNQrzSL3JECU+Devin+Zs4YWAPuBEWzYMEbInRkPEFAWhEr Y2KiK7JZt5CrQ8YhAE63cDkzsiTcMBhyVO9QPC6zTBCeWCMLVR8PzWNaaN2jxjOhARYiYTGTDfNyY91r oMPwKFHuXKI9ZWVnKz4UPRYdC5SewmNyjZjxmcQtDV GiNMJHGJ7QPDzbntUyoKFxtRjfBX85aEboAS9JZc5DTxHnKU2crx7IcFXzQj1ZEYVoBt3JETWdKXUaEW FuVHZ5QVSpZuCdVMaiVACbPIRfWBI1PHMhUKPiBU0RLjKxWRWqBSIfJKMvWARyZHLuhq0UAQHlFPIlOd m8RuNlNCXhKCWoBSrvWRDxKWHiGTR7RCCcWWYdVI6Z IyXeFGVsVEMnMdRgACSqDRMhfn0XPYJbFNEfFvH2WSTwTBRwTSGdLTfgOGRkFCJ7YQRgJWTnBLElFU4T QqYdLTVbHWmzWmYfXKLtDJMgrz4RMFBmMNBxFSXrEzJgGKIcURYlIXbmBEAhJHE4FrI5YNVfOUUtHS6W ArErYHZhQEj9FMLxHJSeCPVqfz4EMTMiGUOdCNR6BM LbUHDsXVLyOFfhRWQvHUO7JhRiBKYoFKJlQJ1PZeBvEURyWZk6CVajNPQyMWAmnh7XCMArINFyPFbuUD CpRYKaTHGkYFadLRBhELAzPBI1AQOnLOWyQN5GPaClSNJcPPYqUOvbJNZcPQVitn3QBWRyQWMeRTJcEx DeVNOzXASpKZttLBFcCRMpRGA3DIFdVGPcWR7LVoRk DUNaYJGkKdooHSRqLSRauq4IHEKiFAAiSxD6TBHhAIYgMZGwTHm5ehWtsFPkHKe5MA5OH7NeueLoIrGF Js2Tz059KSNyVEGeWy8LJ4boAf2wRNLrOSDCFc8IITl7ZAgbSEUqWHJ9OYFrDHG3ZHHvPkIgZwb5ImQ8 AFR6FlA+EBjsRHB2UCUnIDQtThXkAyDpTFCqBHPzKR Z4NtDpDxM9QC9tZQZYPt5+WLzemKVqnSltASGZKtWxRZU8KCxwLTSVEx5A ID Date Data Source [id number] 02/16/2020 06:44:55 PM [facility] Name Value Range Interpretation Code Description Data Luzma rce(s) Supporting Document(s) Progress Note [facility] DOGLEy2jXlAMAtGu96/TFOexUWEzj0AuFZkgUEv2BSgfZZNcQ4QuXWW4kX2aJQX7AGzDPnUeVpVnScMq lbm [file] ICAgICAgICAgICAgICAgICAgICAgICAgICAgICAgICAgICAgICAgICAgICAgICAgICAgICAgICAgICAg ICAgICAgICANCiAgICAgICAgICAgICAgICAgICAgIC AgICAgICAgICAgICAgICAgICAgICAgICAgICAgICAgICAgICAgICAgICAgICAgICAgICAgICAgICAgIC AgICAgICAgICAgICAgICAgICANCiAgICAgICAgICAgICAgICAgICAgICAgICAgICAgICAgICAgICAgIC AgICAgICAgICAgICAgICAgICAgICAgICAgICAgICAg ICAgICAgICAgICAgICAgICAgICAgICAgICAgICANCiAgICAgICAgICAgICAgICAgICAgICAgICAgICAg ICAgICAgICAgICAgICAgICAgICAgICAgICAgICAgICAgICAgICAgICAgICAgICAgICAgICAgICAgICAg ICAgICAgICAgICANCiAgICAgICAgICAgICAgICAgIC AgICAgICAgICAgICAgICAgICAgICAgICAgICAgICAgICAgICAgICAgICAgICAgICAgICAgICAgICAgIC AgICAgICAgICAgICAgICAgICAgICANCiAgICAgICAgICAgICAgICAgICAgICAgICAgICAgICAgICAgIC AgICAgICAgICAgICAgICAgICAgICAgICAgICAgICAg ICAgICAgICAgICAgICAgICAgICAgICAgICAgICAgICANCiAgICAgICAgICAgICAgICAgICAgICAgICAg ICAgICAgICAgICAgICAgICAgICAgICAgICAgICAgICAgICAgICAgICAgICAgICAgICAgICAgICAgICAg ICAgICAgICAgICAgICANCiAgICAgICAgICAgICAgIC AgICAgICAgICAgICAgICAgICAgICAgICAgICAgICAgICAgICAgICAgICAgICAgICAgICAgICAgICAgIC AgICAgICAgICAgICAgICAgICAgICAgICANCiAgICAgICAgICAgICAgICAgICAgICAgICAgICAgICAgIC AgICAgICAgICAgICAgICAgICAgICAgICAgICAgICAg ICAgICAgICAgICAgICAgICAgICAgICAgICAgICAgICAgICANCiAgICAgICAgICAgICAgICAgICAgICAg ICAgICAgICAgICAgICAgICAgICAgICAgICAgICAgICAgICAgICAgICAgICAgICAgICAgICAgICAgICAg ICAgICAgICAgICAgICAgICANCjw/vWCoM1dqzRQoen L7J3beEq3JQq3DOD0vp7UxATIbBBueetJsRooATwToGKZmStyXWil0DPjjWT8GaXGaI3EjM8OfBGunUU 6FNZYqGTBctMYgVRZuAIZjBkQ5CJXuECkjYQ4IvZIgWEjmWAYeGYZoIU8DMKZmT136foQwZL9BSt8WIp RgWF5ive6OFEThKWYoLzgQHmo9ATyeDN0GjFDhbPQl UABjGDWVApAvW2rdg8CrGGWgXDLFVBsoBQ2Ex4YyfKZtKDk+Hu5UTU8oe2VlHWpwYLCfHS0our4WOBdD OmAuJ9ZdrVwxQZNkp7lgOKLrAB7lxWGoGEI1QCKvr5Udhpf2SGHGp9FmfqubGg1wGCDiHXXnOm1cAAHm ORT3SaNvZUBAPO5DIGPeEOIxbTCsAOSuWGRORR4KZF bdUOH0COHywcFscQOaOXssPM0FCPDmldXoGHNnOFKBQVn+Jo6FHT9fj6EwCXheVlJuCK3cxs8PVQtKEk ErU9G4xQNdA9C4RPdpZg1KLWPoLDAiQMBuHKBGJIvzUZ4BGU2nfjE2OO8BnEIvACPmUZNubDSrUTz1H1 4dfGYwXUsiEG6VNJY+Devin+Si4CZIXuKKXfERJgCrJb XBQKLwEsY8RwV8GMh3MlU7CuKP79qGzeqvNcUIfnFA4EGB4zGYUnPMVOYA8YkKZedT2lvgRsRBUiKPNB AvMkT77rwFFuGVNgJNYlVUSiZv5AUPHdD6CeipXdlKbfdwOaZNAbLOUVBI1DUWqbhrRvtCSlcLobMA80 uMpcXI3TTq6LYlQvZL1pjw1UkBWbTz4VIAKdQf4HQW EeWEUpIDJoBII0NGKjIgLnPXpgKKHaOFFpRZT0RZEzYTQqNT4RViKaKUHmFGN4GhVhVRCoNGSjse2TRZ UkFSKwFvP5HBMxILMkGOCiCZlgMDRnOKNjIYI6WLQbDYGiSB5RGpUxZDOsGJA2TASuSPRkLFAgqw4EZK OwPBBuQcQpSHRlZDMtHLNcHVleIVAsZCGeSKj1KOTw DLKuAO1BOkMzALPzWSYkHdNdSVKkPUByay2SMGBtZIDwWxS0AxVpHFBiLAYwSFhoRIPvDAO4NSKpJPVy ELYpDW7ERhRtMHKfAGR1TVVyYKSpVSSkys8CABQjFMKkFUwjKLZxQXEpWVVhLWcdHWJiWBY0YqA1OHGw MJXuQL2CSqNnTKHiQHY7HOMsAKYhOVGpez4TYFIzQE JnKljoEjJmNDAtRRMlRTghVCYhMDC5HNMaHDOgKGUtSO1YKtZpIJhiICVFBmn0ZWluB6g7MYEpNb1UT0 Pzx8OtPTArDQJGUTfsCK0comUwBLKvYj8SI1cXEsnwHIF0HlKgK1BeA3GjAZG5GCL6RnUwSWQiIMZ2AQ VkDG7hYXU0GuD6PTG9AtXhAFKvHrQlXXulAIIzBPXx YMg2P8KsNtJkFW0VRp8TJwM6PRR9nIBrMs7DGhBhTz8TYCCMJ7WHVs== ID Date Data Source [id number] 02/16/2020 03:27:[address] [facility] XR SPINE LUMBAR 2-3 VIEWS [id number] RES ULTInterpreted by:[facility], [facility]-3 views dated 02/16/2020.REASON FOR [...] rce(s) Supporting Document(s) ID Date Data Source [id number] 02/16/2020 11:29:[address] [facility] Name Value Range Interpretation Code Description Data Luzma rce(s) Supporting Document(s) Progress Note [facility] TFBTWj5eCoDAFmVt84/ELImuSVSjf6KiFDmqNRv7AFtsYJIzR9UtFHU7rQ5tYZL2BTgQPjVgQdPvWaMc lbm [file] YQE9EX4fXOJCCp2+IQfzfHNrmIkgJWOUBwY9QYJ2HUmnYRBGOm7U ID Date Data Source [id number] 02/16/2020 10:19:58 AM [facility] FLUORO NON-RAD PROC-OR [id number] RESULT This statement is intended for documentation purposes only.This exam was performed in the Operating Room by the Surgeon and a Radiologist was not present. Please refer to the Operative note in EPIC. Name Value Range Interpretation Code Description Data Luzma rce(s) Supporting Document(s) ID Date Data Source [id number] 02/16/2020 07:25:03 AM [facility] Name Value Range Interpretation Code Description Data Luzma rce(s) Supporting Document(s) History and Physical [facility] DSOYZe4yDoRYFmCh34/FUWlkFEWya9MqDHuhGJy8KVtuCZZkR4QaBTY8jN3hAGP7RNzIPsPtZeRePpUr lbm [file] J462BJYYoF4GigVG5AzXq74tQG0hzI4A6pfA9G78Yc/1DC1MhTlohNUOkeEQuMrfga4Mxv4lASqs+School Health Assistant [file] WaQuOZYyCEd4MpUbDOM8K7B+GG7wKYu+Vu2Wu1OdpaA5iqRbVYd5FyQ9YR9WEZQWU9BAQt== ID Date Data Source [id number] 02/16/2020 07:14:05 AM [facility] Name Value Range Interpretation Code Description Data Luzma rce(s) Supporting Document(s) Choriogonadotropin.beta subunit free [Units/volume] in Serum or Plasm a <5 [facility] (NOTE)Levels between 5 and 25 [IU]/L may indicate earlypregnancy and should be repeated after 48 hours. ID Date Data Source [id number] 02/16/2020 07:13:24 AM [facility] Name Value Range Interpretation Code Description Data Luzma rce(s) Supporting Document(s) ABO and Rh group [Type] in Blood [facility] Blood bank comment [facility] ID Date Data Source [id number] 02/14/2020 08:49:22 AM [facility] Name Value Range Interpretation Code Description Data Luzma rce(s) Supporting Document(s) [facility] ICGIPc9gEeQIJfQyp9WdAvMjMZQbHP6yrvo3B8M5iCKhG0ZfvUMem6phN1OdQ0GqIJEzTPRGIY4CtYUa jb2 [file] 90+ic6/Claudia/olO/5Apc3KSH8Cwg+jI76y+KAkJ86jA+P80mP8SG/mdNZDfWZmPRYP+oKC5jRvTh3yOLb TPTzm5MMAz4Ksynz6AhJDYSpHkkrCknXIuKK/Q+YnhYLbvVU74exzuYYoUzwhI9nRDr/JUQBvU8m6I+2 A+qOOjZPDEapdX5V1O9wQQfBcM89R7v5XU6Zcvl5K/ eR3H4mpZGbDKXavNX1chzOC2EfQG2B+WfbYxjZ3R3wdJNuNGJpk6hQAf8XsUZsR7NBL7bFJeNUSWBi/L RtZ7qcTo1TGNjnNaQQcJDEtN4cpJKZCFkCMvelAgPUyTLs/LLaCPOvZcOx+NF1VpZ0mvG5STZQP3YbLm EJ7RGIdxKfWSPe/UTwKWYFuRYGSYRTRDJTKUZNT1M4 K9vx9HfxoqoQWA+pIJl6OJI+qOqU7E0IyHGRK1Kum9FzQWVuF+dhmiGwN5RsVnHrYbpANLUbIgpkUiT4 GyPnxtopWzHF1MaFTbtH/fOCARG3ltlAlUgjDVAmqnH2GqiqiOQm/VadMqkDjEh4PMVrgZ09mwwCzEVh VtnGkil2JYSZjopbIodVotq/+juM/tWBl4mjyHaE6r lY+yihJSg7YAFlYR7/u8+MRx/6bkanXNKcYU4UbPMqwlsAZaMDOATRn79evimuwICv/Cges37fgjvR80 bt/AhN6YnqvN963tS7kju78jhA9NCI+BngV5PYCRDl+5vyq82InCpq2nt7JU71kNx0OhINmmuM/OB4nv haCdGOQTOx/L/TgcC+IGaO6AS+uvNKkZQSj72eGqqA zuuBTm5GM5K5jvVEfR+yV2X0uf5SLmSvPxZuThXlNuOrBoQdSrBqMyPzRnZgPnMbSgWhWgGbFrLtLoOi ZlPhZlPhZlPhZlPhZlPhYdyO+nah1BDfxSUVZPKK1b8/3i1x/y7ugX6Zp74f/e/we81wRJxf//r7cPH1 /MzuUwL2lf1Jknfs588ker//e3bz//4rcfvsLvKsLp 88Mvf/SCoXGOBlX6ul7Lt5/s+uXX33z/y+2++YwpcznqmoD7N+fC+f13f/j6X97+9ZubDn3+4dIq5e26 5ssvPv/q7Q9ff/n9h2+/+/Ljv/zy959/fHt7+/pnF5p83lyIc93++Pjtlx++//tiu4TtJad+teqf6H32 q+Id7Ft9+yVjrao95zh/8vG3v/svfvZagF8/+/qbb3 /3/gwfvvin/+GMTypP5f6/7Yfvv/puznX4U8627bk6i3/51ee//urDz/+0w2+9/vTFX//y73/6208//t vb//jfb9//6c9//uFvf/vxhz//97ff/PCXP/3457d//W+S//oPb3/9y5vor+DJtu5tB8+fqbx9/ru/q/ I+3uGbHqGaj302X8jnHotcDL/aA41Es2tj7+B+/fb/ Bbi/Sx5w/jE0kaJnzixipbyancY/Osbbsbca8ov/AZzC5/rxtXh2CE5pqO1s7iJUd5/89x/f2+fVWJ+9 pf8uez7++/mHr97+6fOv/unzr7/6mJr8nq1TL//63lmx67Po/Os+Zm05sN4/l1nskExZKOIF5Y96ek1/ /Mt//oKd8542ic3/Wg80iSuiwVViN/1Uv0Y1O8t6KM 9e+g3+/tu3P/3lP3/82//5ji5lfy8M+xtx3gb4jm8D1Ht6a74+9/Zv/+v92f/017/8gWlf2y7icRzEJ/ bPH3/1zx//dZf4JyS+bl3/yj0/KX0/0E1PiQmM5tPScgAmH6gjnAQH//vwvzp5e/z2lx/ffvh/fvyPvx 28j0eM19UBX9WJ++hze/vff/vXf/jZr+/38H/8+NMP f/1hRd7B3I6++F9//OE//vTDX/6+xGarpz1pG8/67Gfo/cBf/fWPnw2+ex6NIeD0U/jHH//4f/4gR473 z1IdfnecV8jt/XTnxqif/sd/vneaf/tcmCe65Ly///qf1qL0D/I3v/vdh68/boxK4hcp/v9/5pom3MoJ 89rvf/lqZ91Y28///U0+zmqipcnnf71s5zy9bjo29T cf3wf+a157u+SXv/wmIR9W43r4oe/xtfs9Rmy2jggNl7/xxTd/+Pr9t+878VrydbjQ65G/L3ifIYpUHJ 6rq2ObSVWcEvDxQL6ilierPDVeKK9qvrt6B8SwgDppVXlSKMQeMn1pvSUmAL9MDON8XDbvVOBlADBtO5 RinW5aP55jmNCdNyRsNYUNQR2DgjX5CFZ6DUO3JXKm IcDpOFJmVS27PELuHJFDDs9antGcXqzEFrPtES3ckyd1L0A2rZHgY388kMkrgwOhSB8Qg9KbrJDhIW0Q vNYfwCNzVUFdWMUqI5ial7ZvDIahFBDJSf8gbaOsZffNJeQyDO6bhyg6G5I9xQxliaOcBBAQPAjfGnbd HR1hiEeylskyE7NyxDHtDABkI7AcMVVif44PJRKrKN qQAmFjWvSdSgWmYOl0JDuaZrTbPOFpUKDdOUUhOV4XbHEbLONmYUGMFLnjVhrxLJSyrM0gxPVNw2XmGr RAHPUEWpfxGeNODJITAWI7EWM8WWUdMN0IrYRdWLM8MQtJDPTVNXjZUNhkQcBar4O7HTOmM7QcOMSyca ReYYOHZRokEpqdEW8wsNbaujakL2AiySArOLDPTIHc OUTwEHYbPEXgH6Qkn6S7K0QsHGzIBFRBGGrJCUirHgQ5i36yosIIOJRyTRHrAP6+IB7oe7UbRk3TFCGs BA2zihi3XG4FoRFcKW5DXEumpqEnH1qfyyGhYvCdRTLXZO1qG6MvjZ27XMR+UkQlPC3ysnf6kvOhWzUb TUNkPDKqKZXzAGsjSHBrFVKwZDUkIGZ6RNO5XYTbJd CeJWAaPzO3HVOkUMXkMTBebpRHJOPeYRT7RqZ7QSAfXOVoAGRrZIngLDBgJAXtLaTlEYVuHLZdNW3yYr HiECLuITPwSQTjIzK9ZuWjVaQPXYWiVXOuCXFjGwVsLYZsENDaVEljZAZjODPnPNw8GLGiOFByVX2dYe FjGXZeGIGwYVNaDMAvTNPgivVJWHFdCVViKZX3KBWa ZMJaEGJlCLynUOVzIUYcARF3VWQuQJWbXX1rBdZnNYZsYQG6UkQzDARiUJMfqxOZVJBkQBLiCOW9NSEc UGGgXYPuSXiiSVYwTXJaTvH8MXShJJAjLF9uHfJcOPBsYEV2IDClHYGhCBDabnPMPSRcQOWkCRr2EzQp YWYmOMJbDCrgCKWpZUVqLLnvWKMkSXJcED6oCrIyST CgYVOwMZHsKVLaQHAccyWWHGDeEXCzHXD7QhXeXWCfONNjUExcQTDnLBNgIRC1HVMzGJDrBK4qPtRyOG EzHgL8IVBnCFDxUUJgdqTYECSgZHAoDMPzHFVaJATjDFYwFMqgXFGbSBNhZqU3EUNxSRPpCC9gWsPqQK EhOWV7FIKkDIEuASUrefDCGTTeUNLyKLKtMWT5MNFd LWKsATa3bdIehNYkTtf5Rg4YuAhnSDR1Ew1BxcKdUWIwARFPKc1Fz603EJEoPHVGOtr+PgpzdGFydHhy SLFUBpChSQIHAIMYX0Q= ID Date Data Source [id number] 02/13/2020 04:18:22 PM [facility] XR CHEST FRONTAL AND LATERAL [id number] RESULTInterpreted by:Kiran Wilson MDINDICATION: Preop evaluation. COMPARISON: [...] rce(s) Supporting Document(s) ID Date Data Source [id number] 02/13/2020 05:49:55 PM [facility] Name Value Range Interpretation Code Description Data Luzma rce(s) Supporting Document(s) ABO and Rh group [Type] in Blood [facility] Blood group antibody screen [Presence] in Serum or Plasma [facility] Blood bank comment [facility] ID Date Data Source [id number] 02/13/2020 05:24:00 PM [facility] Name Value Range Interpretation Code Description Data Luzma rce(s) Supporting Document(s) Leukocytes [#/volume] in Blood by Automated count 12.2 10*3/uL 4-10 H [facility] Erythrocytes [#/volume] in Blood by Automated count 4.32 10*6/uL 4.1- 5.3 [facility] Hemoglobin [Mass/volume] in Blood 13.7 g/dL 11.5-15.5 [facility] Hematocrit [Volume Fraction] of Blood by Automated count 41.2 % 3 6-45 [facility] Erythrocyte mean corpuscular volume [Entitic volume] by Auto mated count 95.3 fL 80-96 [facility] Erythrocyte mean corpuscular hemoglobin [Entitic mass] by Automated count 31.7 pg 27-33 [facility] Erythrocyte mean corpuscular hemoglobin concentration [Mass/volume] by Automated count 33.2 g/dL 32.0-36.0 [facility] E[facility]throcyte distribution width [Ratio] by Automated count 13.8 % 11.5-14.5 [facility] Platelets [#/volume] in Blood by Automated count 291 10*3/uL 150-400 [facility] Differential cell count method - Blood [facility] Neutrophils/100 leukocytes in Blood by Automated count 56 % [facility] Lymphocytes/100 leukocytes in Blood by Automated count 36 % [facility] Monocytes/100 leukocytes in Blood by Automated count 6 % [facility] Eosinophils/100 leukocytes in Blood by Automated count 1 % [facility] Basophils/100 leukocytes in Blood by Automated count 1 % [facility] Neutrophils [#/volume] in Blood by Automated count 6.90 10*3/uL 1.8-7 .0 [facility] Lymphocytes [#/volume] in Blood by Automated count 4.37 10*3/uL 1.2-4 .0 H [facility] Monocytes [#/volume] in Blood by Automated count 0.71 10*3/uL 0-0.8 [facility] Eosinophils [#/volume] in Blood by Automated count 0.15 10*3/uL 0-0.5 [facility] Basophils [#/volume] in Blood by Automated count 0.06 10*3/uL 0-0.2 [facility] Nucleated erythrocytes/100 leukocytes [Ratio] in Blood by Automated count 0 /100{WBCs} 0-0 [facility] ID Date Data Source [id number] 02/13/2020 05:31:29 PM [facility] Name Value Range Interpretation Code Description Data Luzma rce(s) Supporting Document(s) Prothrombin time (PT) 12.4 s 12.5-14.9 L [facility] INR in Platelet poor plasma by Coagulation assay 0.92 [facility] Routine intensity oral anticoagulation I NR is typically 2.0-3.0. Target INR must be clinically individualized. ID Date Data Source [id number] 02/13/2020 05:31:29 PM [facility] Name Value Range Interpretation Code Description Data Luzma rce(s) Supporting Document(s) aPTT in Platelet poor plasma by Coagulation assay 33.2 s 24.0-33. 0 H [facility] ID Date Data Source [id number] 02/13/2020 05:44:04 PM [facility] Name Value Range Interpretation Code Description Data Luzma rce(s) Supporting Document(s) Bicarbonate [Moles/volume] in Serum 24 mmol/L 22-29 [facility] Chloride [Moles/volume] in Serum or Plasma 107 mmol/L 98-107 [facility] Creatinine [Mass/volume] in Serum or Plasma 0.76 mg/dL 0.50-0.90 [facility] Glucose [Mass/volume] in Serum or Plasma 84 mg/dL 70-140 [facility] Potassium [Moles/volume] in Serum or Plasma 3.8 mmol/L 3.4-5.1 [facility] Sodium [Moles/volume] in Serum or Plasma 140 mmol/L 136-145 [facility] Urea nitrogen [Mass/volume] in Serum or Plasma 15 mg/dL 6-20 [facility] Anion gap 3 in Serum or Plasma 9 mmol/L 8-15 [facility] Osmolality of Serum or Plasma by calculation 290 mosm/kg 275-300 [facility] Creatinine/Urea nitrogen [Mass Ratio] in Serum or Plasma 20 [facility] Calcium [Mass/volume] in Serum or Plasma 9.0 mg/dL 8.6-10.0 [facility] Glomerular filtration rate/1.73 sq M pre dicted among non-blacks [Volume Rate/Area] in Serum or Plasma by Creatinine-based formula (MDRD) >6 0 [facility] Glomerular filtration rate/1.73 sq M pre dicted among blacks [Volume Rate/Area] in Serum or Plasma by Creatinine-based formula (MDRD) >60 [facility] ID Date Data Source [id number] 02/13/2020 05:33:00 PM [facility] Name Value Range Interpretation Code Description Data Luzma rce(s) Supporting Document(s) Color of Urine [facility] Clarity of Urine [facility] Specific gravity of Urine by Refractometry automated 1.012 1.003 -1.030 [facility] pH of Urine by Automated test strip 7.0 5.0-8.0 [facility] Protein [Mass/volume] in Urine by Automated test strip Neg [facility] Glucose [Mass/volume] in Urine by Automated test strip Neg [facility] Ketones [Mass/volume] in Urine by Automated test strip Neg [facility] Bilirubin.total [Presence] in Urine by Automated test strip Negative [facility] Hemoglobin [Presence] in Urine by Automated test strip Neg [facility] Leukocyte esterase [Presence] in Urine by Automated test strip Negative [facility] Nitrite [Presence] in Urine by Automated test strip Negati ve [facility] Leukocytes [#/area] in Urine sediment by Automated count 0 /HPF 0 -5 [facility] Erythrocytes [#/area] in Urine sediment by Automated count 0 /HPF 0-3 [facility] ID Date Data Source [id number] 02/13/2020 01:50:11 PM [facility] Name Value Range Interpretation Code Description Data Luzma rce(s) Supporting Document(s) Progress Note [facility] [id number] lbm [file] [id number]= ID Date Data Source [id number] 02/13/2020 01:50:00 PM EST [facility] Name Value Range Interpretation Code Description Data Luzma rce(s) Supporting Document(s) SARS-CoV-2 RNA [facility] This lab was ordered by [facility] and reported by [facility]. ID Date Data Source [id number] 02/14/2020 06:32:[address] [facility] Name Value Range Interpretation Code Description Data Luzma rce(s) Supporting Document(s) Specimen source [Identifier] of Unspecified specimen [facility] SARS-CoV-2 RNA 2019 nCoV Real-Time RT-PCR: NOT DETECTED [facility] Assay Performed 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 ID Date Data Source [id number] 12/29/2019 09:42:[address] [facility] Name Value Range Interpretation Code Description Data Luzma rce(s) Supporting Document(s) Progress Note [facility] [id number] lbm [file] AgICAgICAgICAgICAgICAgICAgICAgICAgICAgICAgICAgICAgICAgICAgICAgICAgICAgICAgDQogIC AgICAgICAgICAgICAgICAgICAgICAgICAgICAgICAg ICAgICAgICAgICAgICAgICAgICAgICAgICAgICAgICAgICAgICAgICAgICAgICAgICAgICAgICAgICAg ICAgICAgDQogICAgICAgICAgICAgICAgICAgICAgICAgICAgICAgICAgICAgICAgICAgICAgICAgICAg ICAgICAgICAgICAgICAgICAgICAgICAgICAgICAgIC AgICAgICAgICAgICAgICAgDQogICAgICAgICAgICAgICAgICAgICAgICAgICAgICAgICAgICAgICAgIC AgICAgICAgICAgICAgICAgICAgICAgICAgICAgICAgICAgICAgICAgICAgICAgICAgICAgICAgICAgDQ ogICAgICAgICAgICAgICAgICAgICAgICAgICAgICAg ICAgICAgICAgICAgICAgICAgICAgICAgICAgICAgICAgICAgICAgICAgICAgICAgICAgICAgICAgICAg ICAgICAgICAgDQogICAgICAgICAgICAgICAgICAgICAgICAgICAgICAgICAgICAgICAgICAgICAgICAg ICAgICAgICAgICAgICAgICAgICAgICAgICAgICAgIC AgICAgICAgICAgICAgICAgICAgDQogICAgICAgICAgICAgICAgICAgICAgICAgICAgICAgICAgICAgIC AgICAgICAgICAgICAgICAgICAgICAgICAgICAgICAgICAgICAgICAgICAgICAgICAgICAgICAgICAgIC AgDQogICAgICAgICAgICAgICAgICAgICAgICAgICAg ICAgICAgICAgICAgICAgICAgICAgICAgICAgICAgICAgICAgICAgICAgICAgICAgICAgICAgICAgICAg ICAgICAgICAgICAgDQogICAgICAgICAgICAgICAgICAgICAgICAgICAgICAgICAgICAgICAgICAgICAg ICAgICAgICAgICAgICAgICAgICAgICAgICAgICAgIC AgICAgICAgICAgICAgICAgICAgICAgDQogICAgICAgICAgICAgICAgICAgICAgICAgICAgICAgICAgIC AgICAgICAgICAgICAgICAgICAgICAgICAgICAgICAgICAgICAgICAgICAgICAgICAgICAgICAgICAgIC BoOONaINn1V4rnNAFnWLOkUA6wKKi8Hs3+DQoNCmVu LSD2vxGewK3JHX1tq6ZsVWzkYSKjq8JwLTv3UZ9RVNCmPDazXS3JLBbmnx6MWNYnXLUnvXCWh3szWlUf ARN5MQWxCovpUP3SLHLtV8vgvrVvEWRkZEKBGY7FTsYgL0AzlC52CCPBGh6+DQplbmRvYmoNCjIyIDAg i2NlYAu1QN7TFFOfXzubv8BlJdKhJURIECyeUI1HWW I3POQhNCCnTp6CQVGiJ144xfDxFF2OUm2IKrIfWE3gpw8TVwQtVJSzLsgQKer7DWjrOT3DkDMvPUoMmq 2szaLwrxSIg1OtboFlzVICmFPtBCXoNRHdU4YdM0JprmokHRPgPFCtRECaLOPaZaUlTFGmAXtsNJIIPM rPZxJrD6Yrv4QpWhB7YCAqUbQgYTdqHQWoTzE3FV84 xZpjLA7KLCSyTRAvMU85AEEyLFJdFb6CKf8RVcEhYP0ueg0JPdTwIQHoUglNEkf1MQznQY4GhANlA7Gs uZRhm9eQVbGhT3QKHSOeCCBkQy1HPHKzSoWwEIBsOFjlMP3qVPXmDIVYrBbtqvH1FY6MFX2stnQtHT9T KhBgGx1wRs0WMiWlF9RtQ8JnPLItHXZENShlBC2CRX geAF4qMN7Ye2ZGzDXpvU6lid7EDNYuHYWhBudioi6JTmczN8M1wBjlUKVpWlMkAENIOQgpOW4HRVGeOY V2GJVfIGCcBAKSHlBuR73vTC6HJ6Ryl90uMeP6MXEtTeVeVYnsQE07dBcxwqSncWJgfQhbTY7DOu2+DQ plbmRvYmoNCnhyZWYNCjAgMjUNCjAwMDAwMDAwMDAg ExI2CrFfMd5GBHWeNQMdMQKsJbByIMJgFTWzHHliRELsIUE0AOkyHDCnKCJsLR3RSzRhVMRgQbSuZzzk CSJrIODbsz4YAFDsRKZdLLH8AiAqIIRbZIAgDJjuVQIvVDRnZMVzUSWyWQZrZI5AFePgKGSjYDIkHzmi KMTfILHupq5RQONuJZCrLPZ9BbUsVCJeCRBiOOusMV HfNWK7NfroFZMaUNGnFA1BShZxMPMfVYW7XrBrWENiGWOyad8NCKCxZWDrPKNtCBWlRZXxCFUsQByxHS RmOJU9BjRtORDiZJWkRK9ALcArZAEgEUC1GRfrDOViDPQszv8MKXZhYEBvAbX4QMGnDZAlVNFjTVzoBN KsKQU0EQhpNJAyJPTbAI0IHsTtMNKhOMb2ZQheJJXl IYZtep3AZJFlRIPzBTYlLTGjGTKiOUTgTZwpKSEvWNV8VCe0KDFmYIZaCM4UJxDbDZXzQIzaNQpxMSQw GKEngd5BVRYeWXUuKQBmXWJqNRApZWYhWNpaTUUxVRS3ALrnXJAaBWUtPI3GLbImIHQqVUp1XUphFRNu WVLprk4KWYDtFLStOPPcGWUfDPXtYXYdLWurVAXlRO QvNry0XHIsCCYsDH0TVmFvSXOaKhB6BNjeAAZfMVWygy9LzVHkiZhayb3JSQaYMp8RpNznPXS1VOglNj 0mxXAsBHJaQHXZOl6PckKbMHOcQJGSJKuoGEBgXVFvAkveEQUlVfqvLIQzP4K0CmavMuqxAKL2IeHgKm NtPaV8VOUnMTG6HTT8TTLnDZE3CpivDYG5LDW2XEtw YjMyYWE+YL4jJKn+Lu[id number]== ID Date Data Source [id number] 12/09/2019 11:15:00 AM EDT [facility] Name Value Range Interpretation Code Description Data Luzma rce(s) Supporting Document(s) SARS coronavirus 2 RNA [facility] This lab was ordered by [facility] and reported by [facility]. Procedure Social History Code Duration Value Status Description Data Source(s ) Smoking 10/17/2020 12:00:00 AM EDT Unknown if ever smoked comp leted Unknown if ever smoked [facility] ([facility]) Smoking 10/05/2020 12:00:00 AM EDT Current Smoker completed [place] Sm[facility] eCW1 ([facility]) Smoking 09/14/2020 12:00:00 AM EDT Unknown if ever smoked comp leted Unknown if ever smoked [facility] ([facility]) Smoking 08/30/2020 12:00:00 AM EDT Unknown if ever smoked comp leted Unknown if ever smoked [facility] ([facility]) Smoking 08/28/2020 12:00:00 AM EDT Unknown if ever smoked comp leted Unknown if ever smoked [facility] ([facility]) Smoking 08/16/2020 12:00:00 AM EDT Unknown if ever smoked comp leted Unknown if ever smoked [facility] ([facility]) Smoking 08/14/2020 12:00:00 AM EDT Unknown if ever smoked comp leted Unknown if ever smoked [facility] ([facility]) Smoking 07/31/2020 12:00:00 AM EDT Unknown if ever smoked comp leted Unknown if ever smoked [facility] ([facility]) Smoking 07/05/2020 12:00:00 AM EDT Current Smoker completed [place] Smoker eCW1 ([facility]) Smoking 07/05/2020 12:00:00 AM EDT Current Smoker completed [facility] Smoker eCW1 ([facility]) Smoking 07/05/2020 12:00:00 AM EDT Current Smoker completed [facility] [place] Smoker eCW1 ([facility]) Smoking 07/05/2020 12:00:00 AM EDT Current Smoker completed Cur[place] nt Smoker eCW1 ([facility]) Smoking 06/14/2020 12:00:00 AM EDT Unknown if ever smoked comp leted Unknown if ever smoked [facility] ([facility]) Smoking 06/07/2020 12:00:00 AM EDT Unknown if ever smoked comp leted Unknown if ever smoked [facility] ([facility]) Smoking 05/10/2020 12:00:00 AM EST Unknown if ever smoked comp leted Unknown if ever smoked [facility] ([facility]) Smoking 05/03/2020 12:00:00 AM EST Current Smoker completed Cur[place] nt Smoker eCW1 ([facility]) Smoking 05/03/2020 12:00:00 AM EST Current Smoker completed [place] Smoker eCW1 ([facility]) Smoking 05/03/2020 12:00:00 AM EST Current Smoker completed [place] Smoker eCW1 ([facility]) Smoking 04/25/2020 12:00:00 AM EST Unknown if ever smoked comp leted Unknown if ever smoked [facility] ([facility]) Smoking 04/12/2020 12:00:00 AM EST Current Smoker completed [place] nt Smoker eCW1 ([facility]) Smoking 04/12/2020 12:00:00 AM EST Current Smoker completed [place] Smoker eCW1 ([facility]) Smoking 04/09/2020 12:00:00 AM EST Unknown if ever smoked comp leted Unknown if ever smoked [facility] ([facility]) Smoking 03/29/2020 12:00:00 AM EST Unknown if ever smoked comp leted Unknown if ever smoked [facility] ([facility]) Alcohol intake 02/28/2020 12:00:00 AM EST Lifetime non-drinker (finding) completed Lifetime non-drinker (finding) [facility] Tobacco use and exposure 02/28/2020 12:00:00 AM EST Never used co mpleted Never used [facility] Cigarette pack-years 02/28/2020 12:00:00 AM EST UNK completed [facility] Cigarettes smoked current (pack per day) - Reported 02/28/20 12:00:00 AM EST UNK completed [facility] Smoking 02/28/2020 12:00:00 AM EST Current every day smoker co mpleted Current every day smoker [facility] Alcohol intake 02/16/2020 12:00:00 AM EST Lifetime non-drinker (finding) completed Lifetime non-drinker (finding) [facility] Smoking 02/14/2020 12:00:00 AM EST Current Smoker completed [place] Smoker eCW1 ([facility]) Smoking 02/14/2020 12:00:00 AM EST Current Smoker completed Curre nt Smoker eCW1 ([facility]) Smoking 02/14/2020 12:00:00 AM EST Current Smoker completed Curre nt Smoker eCW1 ([facility]) Smoking 02/14/2020 12:00:00 AM EST Unknown if ever smoked comp leted Unknown if ever smoked [facility] ([facility]) Smoking 02/14/2020 12:00:00 AM EST Current Smoker completed Curre nt Smoker eCW1 ([facility]) Alcohol intake 02/13/2020 12:00:00 AM EST Lifetime non-drinker (finding) completed Lifetime non-drinker (finding) [facility] Alcohol intake 02/08/2020 12:00:00 AM EST Lifetime non-drinker (finding) completed Lifetime non-drinker (finding) [facility] Smoking 01/27/2020 12:00:00 AM EST Unknown if ever smoked comp leted Unknown if ever smoked [facility] ([facility]) Smoking 01/19/2020 12:00:00 AM EST Current Smoker completed [facility] Smoker eCW1 ([facility]) Smoking 12/30/2019 12:00:00 AM EDT Unknown if ever smoked comp leted Unknown if ever smoked [facility] ([facility]) Smoking 12/19/2019 12:00:00 AM EDT Unknown if ever smoked comp leted Unknown if ever smoked [facility] ([facility]) Smoking 12/14/2019 12:00:00 AM EDT Current Smoker completed Curre nt Smoker eCW1 ([facility]) Smoking 12/09/2019 12:00:00 AM EDT Unknown if ever smoked comp leted Unknown if ever smoked [facility] ([facility]) Vital Signs ID Date Data Source UNK Name Value Range Interpretation Code Description Data Source(s) Body height 0.00 in Normal (applies to non-numeric resu lts) 0.00 in [facility] ([facility]) Body weight Measured 0.00 lbs Normal (applies to n on-numeric results) 0.00 lbs [facility] ([facility]) Body mass index (BMI) [Ratio] 0.00 kg/m2 No rmal (applies to non-numeric results) 0.00 kg/m2 [facility] ([facility]) Systolic blood pressure 0 mm[Hg] Normal (applies t o non-numeric results) 0 mm[Hg] [facility] ([facility]) Diastolic blood pressure 0 mm[Hg] Normal (applies to non-numeric results) 0 mm[Hg] [facility] ([facility]) Body weight 263 [lb_av] 263 [lb_av] eCW1 ([facility]) Body height 65 [in_i] 65 [in_i] eCW1 ([facility]) Body mass index (BMI) [Ratio] 43.76 kg/m2 43.76 kg/m2 eCW1 ([facility]) Heart rate 89 /min 89 /min eCW1 ([facility]) Respiratory rate 18 /min 18 /min eCW1 ([facility]) Body temperature 97.2 [degF] 97.2 [degF] eCW1 ( [facility]) Systolic blood pressure 112 mm[Hg] 112 mm[Hg] e CW1 ([facility]) Diastolic blood pressure 76 mm[Hg] 76 mm[Hg] eCW1 ([facility]) Diastolic blood pressure 0 mm[Hg] Normal (applies to non-numeric results) 0 mm[Hg] [facility] ([facility]) Body height 0.00 in Normal (applies to non-numeric resu lts) 0.00 in [facility]) Body weight Measured 0.00 lbs Normal (applies to n on-numeric results) 0.00 lbs [facility] ([facility]) Body mass index (BMI) [Ratio] 0.00 kg/m2 No rmal (applies to non-numeric results) 0.00 kg/m2 [facility] ([facility]) Systolic blood pressure 0 mm[Hg] Normal (applies t o non-numeric results) 0 mm[Hg] [facility]) Body weight 258 [lb_av] 258 [lb_av] eCW1 ([facility]) Body height 65 [in_i] 65 [in_i] eCW1 ([facility]) Body mass index (BMI) [Ratio] 42.93 kg/m2 42.93 kg/m2 eCW1 ([facility]) Heart rate 89 /min 89 /min W1 ([facility], [facility]) Respiratory rate 18 /min 18 /min eCW1 ([facility]) Body temperature 96.7 [degF] 96.7 [degF] eCW1 ( [facility]) Systolic blood pressure 103 mm[Hg] 103 mm[Hg] e CW1 ([facility]) Diastolic blood pressure 61 mm[Hg] 61 mm[Hg] eCW1 ([facility]) Diastolic blood pressure 0 mm[Hg] Normal (applies to non-numeric results) 0 mm[Hg] [facility] ([facility]) Body height 0.00 in Normal (applies to non-numeric resu lts) 0.00 in [facility] ([facility]) Body weight Measured 0.00 lbs Normal (applies to n on-numeric results) 0.00 lbs [facility] ([facility]) Body mass index (BMI) [Ratio] 0.00 kg/m2 No rmal (applies to non-numeric results) 0.00 kg/m2 [facility] ([facility]) Systolic blood pressure 0 mm[Hg] Normal (applies t o non-numeric results) 0 mm[Hg] [facility] ([facility]) Body weight 248 [lb_av] 248 [lb_av] eCW1 ([facility]) Body height 65 [in_i] 65 [in_i] eCW1 ([facility]) Body mass index (BMI) [Ratio] 41.26 kg/m2 41.26 kg/m2 eCW1 ([facility]) Heart rate 116 /min 116 /min eCW1 ([facility]) Respiratory rate 18 /min 18 /min eCW1 ([facility]) Body temperature 97.1 [degF] 97.1 [degF] eCW1 ( [facility]) Systolic blood pressure 100 mm[Hg] 100 mm[Hg] e CW1 ([facility]) Diastolic blood pressure 76 mm[Hg] 76 mm[Hg] eCW1 ([facility]) Body weight 241.8 [lb_av] 241.8 [lb_av] eCW1 ([facility]ly [facility]) Body height 65 [in_i] 65 [in_i] eCW1 ([facility]) Body mass index (BMI) [Ratio] 40.23 kg/m2 40.23 kg/m2 W1 ([facility]) Heart rate 103 /min 103 /min eCW1 ([facility]) Respiratory rate 18 /min 18 /min eCW1 ([facility]) Body temperature 97.2 [degF] 97.2 [degF] eCW1 ( [facility]) Systolic blood pressure 107 mm[Hg] 107 mm[Hg] e CW1 ([facility]) Diastolic blood pressure 63 mm[Hg] 63 mm[Hg] eCW1 ([facility]) Body height 0.00 in Normal (applies to non-numeric resu lts) 0.00 in [facility] ([facility]) Body weight Measured 0.00 lbs Normal (applies to n on-numeric results) 0.00 lbs [facility] ([facility]) Body mass index (BMI) [Ratio] 0.00 kg/m2 No rmal (applies to non-numeric results) 0.00 kg/m2 [facility] ([facility]) Systolic blood pressure 0 mm[Hg] Normal (applies t o non-numeric results) 0 mm[Hg] [facility] ([facility]) Diastolic blood pressure 0 mm[Hg] Normal (applies to non-numeric results) 0 mm[Hg] [facility] ([facility]) Body weight 245.4 [lb_av] 245.4 [lb_av] eCW1 ([facility]) Body height 65 [in_i] 65 [in_i] eCW1 ([facility]) Body mass index (BMI) [Ratio] 40.83 kg/m2 40.83 kg/m2 W1 ([facility]) Heart rate 77 /min 77 /min eCW1 ([facility]) Respiratory rate 18 /min 18 /min eCW1 ([facility]) Body temperature 97.4 [degF] 97.4 [degF] eCW1 ( [facility]) Systolic blood pressure 106 mm[Hg] 106 mm[Hg] e CW1 ([facility]) Diastolic blood pressure 64 mm[Hg] 64 mm[Hg] eCW1 ([facility]) ID Date Data Source [id number] 02/28/2020 03:45:02 PM [facility] Name Value Range Interpretation Code Description Data Source(s) WEIGHT RECORDED 245 lb 245 lb [facility] Body height Measured 67.56 in 67.56 in [facility] ID Date Data Source [id number] 02/22/2020 10:01:21 AM [facility] Name Value Range Interpretation Code Description Data Source(s) WEIGHT RECORDED 245.3 lb 245.3 lb [facility] WEIGHT RECORDED 245.56 lb 245.56 lb [facility] ID Date Data Source [id number] 02/13/2020 05:50:04 PM [facility] Name Value Range Interpretation Code Description Data Source(s) WEIGHT RECORDED 246.7 lb 246.7 lb [facility] Body height Measured 67.56 in 67.56 in [facility] Patient Treatment Plan of Care Planned Activity Planned Date Details Description Data Source (s) Oxybutynin chloride 5 MG Oral Tablet 02/17/2020 09:00:00 AM [facility] multivitamin tablet 1 tablet 02/17/2020 09:00:00 AM [facility] Cholecalciferol 400 UNT Oral Tablet 02/17/2020 09:00:00 AM [facility] Levothyroxine Sodium 0.025 MG Oral Tablet 02/17/2020 07:30:00 AM [facility] duloxetine 60 MG Delayed Release Oral Capsule 02/16/2020 10:00:00 P M [facility] quetiapine 200 MG Oral Tablet 02/16/2020 10:00:00 PM [facility] Magnesium Hydroxide 80 MG/ML Oral Suspension 02/16/2020 10:00:00 PM [facility] cetirizine hydrochloride 10 MG Oral Tablet 02/16/2020 09:00:00 PM [facility] Prazosin 2 MG Oral Capsule 02/16/2020 09:00:00 PM [facility] Propranolol Hydrochloride 10 MG Oral Tablet 02/16/2020 09:00:00 PM [facility] topiramate 100 MG Oral Tablet 02/16/2020 09:00:00 PM [facility] gabapentin 300 MG Oral Capsule 02/16/2020 05:00:00 PM [facility] ondansetron (ZOFRAN) injection 4 mg 02/16/2020 12:37:47 PM [facility] albuterol (PROVENTIL HFA) inhaler 2 puff 02/16/2020 12:37:46 PM [facility] Clonazepam 1 MG Oral Tablet 02/16/2020 12:37:46 PM [facility] Oxycodone Hydrochloride 5 MG Oral Tablet 02/16/2020 12:37:45 PM [facility] fentaNYL (SUBLIMAZE) (PF) injection 25 mcg 02/16/2020 12:37:45 PM E [facility] metaxalone 800 MG Oral Tablet 02/16/2020 12:37:45 [facility] 8.6 MG Oral Tablet 02/16/2020 12:37:45 PM [facility], INTERMEDIATE 35.2 MG/ML Oral Solution 02/16/2020 12:37:45 PM [facility] Bisacodyl 10 MG Rectal Suppository 02/16/2020 12:37:45 PM [facility] Benzocaine 15 MG / Menthol 3.6 MG Oral Lozenge 02/16/2020 12:37:45 PM [facility] Acetaminophen 325 MG Oral Tablet 02/16/2020 12:37:44 PM [facility] 25 MG Oral Tablet 02/16/2020 12:00:00 AM [facility] gabapentin 300 MG Oral Capsule 02/16/2020 12:00:00 AM [facility], INTERMEDIATE 8.6 MG Oral Tablet 02/16/2020 12:00:00 AM [facility] Ondansetron 4 MG Oral Tablet 02/16/2020 12:00:00 AM [facility] Oxycodone Hydrochloride 5 MG Oral Tablet 02/16/2020 12:00:00 AM [facility] topiramate 100 MG Oral Tablet 12/13/2019 12:00:[address] [facility] quetiapine 300 MG Oral Tablet 12/13/2019 12:00:[address] [facility] quetiapine 100 MG Oral Tablet 12/13/2019 12:00:[address] [facility] Propranolol Hydrochloride 10 MG Oral Tablet 12/13/2019 12:00:[address] [facility] Prazosin 2 MG Oral Capsule 12/13/2019 12:00:[address] [facility] Oxybutynin chloride 5 MG Oral Tablet 12/13/2019 12:00:[address] [facility] Levothyroxine Sodium 0.025 MG Oral Tablet 12/13/2019 12:00:00 AM [facility] duloxetine 60 MG Delayed Release Oral Capsule 12/13/2019 12:00:[address] [facility] duloxetine 30 MG Delayed Release Oral Capsule 12/13/2019 12:00:[address] [facility] cetirizine hydrochloride 10 MG Oral Tablet 12/13/2019 12:00:00 AM E [facility]
--- NOTE | 2021-01-09 15:57 | REP ---
INDICATION: r/o PE, elev D Dimer, persistant SOB post COVID COMPARISON: None. TECHNIQUE: CT angiography of the chest after the intravenous administration of 75 cc Isovue 370 attention pulmonary arteries FINDINGS: There is excellent visualization of the pulmonary arteries. There are no focal filling defects present that would be considered consistent with acute pulmonary emboli. There is no evidence of mediastinal or hilar adenopathy. There are no pleural or pericardial effusions. The thoracic aorta appears to be within normal limits although seen in limited fashion. The imaged upper abdomen is unchanged from a CT examination of the abdomen of 03/18/2016. The imaged osseous structures are within normal limits. There is a dorsal column stimulator present the tip of which is at the T6 level. Evaluation of the lung altamirano shows a few scattered ground-glass opacities. There are no abnormal nodules or masses. The lung altamirano are hypoexpanded. IMPRESSION: 1. There is no evidence of a pulmonary embolus. 2. Likely scattered lung field subsegmental atelectatic changes. 3. Stable left adrenal gland nodule. 4. Other findings as described above. <Electronically signed by Brandon Carrasco > 01/09/21 [id number]
[2021-01-09] MEDS ORDERED: PRED20TA PO (16:23)
[2021-01-09 16:43] VITALS: BP 128/68
--- NOTE | 2021-01-10 20:05 | ECGEPIP ---
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
== END 2021-01-09 16:45 | disposition home or self-care (01) ==
LOC: M ED 09:55
DX: R06.00 Dyspnea, unspecified (principal); R51.9 Headache, unspecified; U09.9 Post COVID-19 condition, unspecified; J45.909 Unspecified asthma, uncomplicated; R56.9 Unspecified convulsions; E03.9 Hypothyroidism, unspecified; Z79.899 Other long term (current) drug therapy; Z79.890 Hormone replacement therapy; Z88.8 Allergy status to other drugs, medicaments and biological substances; Z91.018 Allergy to other foods; Z91.040 Latex allergy status; Z91.048 Other nonmedicinal substance allergy status
CPT/HCPCS: 71046; 71275; 80047; 80076; 82550; 82553; 82803; 83690; 83880; 85025; 85379; 93005; 96374; 96375; 99284; J1200; J1885; J2765; J2930; Q9967

== ENCOUNTER 2021-03-15 21:40 | Inpatient (IN) | payer OTHER ==
[~2021-03-15] VITALS: Ht 162.6 cm; Wt 121.4 kg
[~2021-03-15 21:40] MED LIST changes: -LEVO25TA5; +LEVO25TA5 PO; +PRED20TA PO
[2021-03-15] MEDS ORDERED: CHARCOAL ACTIVATED LIQUID 25 GM/120 ML BTL PO ONE (21:50)
[2021-03-15] MEDS ORDERED: NS 1,000 ML IV SCH (21:55)
[2021-03-15 22:11] LABS: BASO % 0.3 % (0.0-1.0); EOS % 0.3 % (0.0-3.0); HEMOGLOBIN 14.5 g/dl (12.0-15.5); LYMPH # 3.3 10^3/uL (1.5-5.0); LYMPH % 21.6 % (24.0-44.0); MEAN CORPUSCULAR HEMOGLOBIN 31.1 pg (27.0-33.0); MEAN CORPUSCULAR VOLUME 94.4 fl (80.0-96.0); MONO # 0.7 10^3/uL (0.0-0.8); MONO % 4.3 % (2.0-8.0); NEUTROPHILS % 73.1 % (36.0-66.0); PLATELET COUNT, AUTOMATED 309 10^3/uL (150-450); RED BLOOD COUNT 4.66 10^6/uL (4.00-5.40); WHITE BLOOD COUNT 15.1 10^3/uL (4.0-10.0)
[2021-03-15 22:30] LABS: AMPHETAMINES LEVEL URINE NEGATIVE (NEGATIVE); BARBITURATES URINE NEGATIVE (NEGATIVE); BENZODIAZEPINES URINE NEGATIVE (NEGATIVE); CANNABINOIDS URINE POSITIVE (NEGATIVE); COCAINE METABOLITE URINE NEGATIVE (NEGATIVE); METHADONE URINE NEGATIVE (NEGATIVE); OPIATES URINE NEGATIVE (NEGATIVE); PHENCYCLIDINE URINE NEGATIVE (NEGATIVE)
[2021-03-15] MEDS ORDERED: NS 1,000 ML IV ONE (22:40)
[2021-03-15] MEDS ORDERED: OXYB5TAB10 PO (22:42)
[2021-03-15] MEDS ORDERED: CETI-24 PO (22:42)
[2021-03-15] MEDS ORDERED: DULO60CA35 PO (22:42)
[2021-03-15] MEDS ORDERED: PROP10TA56 PO (22:42)
[2021-03-15] MEDS ORDERED: CLON0.5T2 PO (22:46)
[2021-03-15] MEDS ORDERED: med rec comment (22:48)
[2021-03-15 22:50] LABS: RSV AMPLIFICATION NEGATIVE (NEGATIVE)
[2021-03-15 22:50] LABS: ACETAMINOPHEN LEVEL < 2.0 UG/ML (10.0-30.0); ALBUMIN 3.5 GM/DL (3.2-5.2); ALT/SGPT 28 U/L (12-78); BILIRUBIN,DIRECT < 0.1 MG/DL (0.0-0.2); BILIRUBIN,TOTAL 0.2 MG/DL (0.2-1.0); BLOOD UREA NITROGEN 9 MG/DL (7-18); CALCIUM LEVEL 8.9 MG/DL (8.5-10.1); CARBON DIOXIDE LEVEL 21 MEQ/L (21-32); CHLORIDE LEVEL 109 MEQ/L (98-107); CREATININE FOR GFR 0.81 MG/DL (0.55-1.30); ETHYL ALCOHOL (ETHANOL) 0.121 % (0.000-0.010); GLOMERULAR FILTRATION RATE > 60.0 (>58); GLUCOSE, FASTING 152 MG/DL (70-100); POTASSIUM SERUM 4.6 MEQ/L (3.5-5.1); SODIUM LEVEL 141 MEQ/L (136-145); TOTAL PROTEIN 7.9 GM/DL (6.4-8.2)
[2021-03-15] MEDS ORDERED: HOME MED LIST COMPLETE! XX SCH (22:50)
[2021-03-15 22:51] LABS: HCG, SERUM QUALITATIVE NEGATIVE (NEGATIVE)
[2021-03-16] VITALS (53 sets, daily range): BP systolic 68–117; BP diastolic 42–83; O2SAT 93–94
--- NOTE | 2021-03-16 00:32 | HPEPDOC ---
[facility] Medical History & Physical Date of Admission Mar 15, 2021 Date of Service: Mar 15, 2021 Attending Physician: ADA ALMANZA MD History and Physical CHIEF COMPLAINT: Overdose HISTORY OF PRESENT ILLNESS: Patient is a 46-year-old female who presented to the ED on 03/15/2021 for possible overdose and suicide attempt. There are varying reports as to what happened. 1 reports that patient took all her pills and was lethargic upon arrival. She was highly uncooperative and needed four-point restraints. Per [facility], patient's niece called 911 after patient texted her boyfriend she had intentionally overdosed. When police arrived on scene they noted empty wine bottles and many open daily pill packets. She was also apparently very combative with EMS and police on scene. No reports stated that patient denied taking any of her pills in excess. Did admit to drinking 2 bottles of wine, and taking 1 Klonopin. She denied being suicidal and said that she was trying to hurt her boyfriend's feelings because she caught him cheating recently which has caused her to be depressed. PAST MEDICAL HISTORY: 1. Migraines. 2. Asthma. 3. GERD. 4. Colitis 5. Ovarian cyst 6. Hypothyroidism 7. Sciatica 8. Anxiety, PTSD, bipolar 9. Seizure disorder 10. IBS 11. Stress incontinence 12. Fibromyalgia PAST SURGICAL HISTORY: 1. C5-C6-C7 fusion and discectomy. 2. Appendectomy 3. Neck discectomy with plating and fusion. 4. Tubal ligation with freezing for cancer cells SOCIAL HISTORY: Tobacco use: Every day smoker per EMS report (obtained through outpatient clinic note) ETOH: Yes Illicit drug use: Unknown as patient as patient is unresponsive IV drug use: Unknown as patient is unresponsive Marijuana use: Positive drug screen FAMILY HISTORY (obtained through outpatient clinic note): Father: 71 years old, history of coronary artery disease status post CABG, pancreatic cancer Mother: 65 years old alive, history of cerebral aneurysm, thyroid disease, psych issues Siblings: 1 brother and 2 sisters Children: 3 ALLERGIES: Please see below. REVIEW OF SYSTEMS: Unable to be obtained due to patient's nonresponsive state HOME MEDICATIONS: Please see below. PHYSICAL EXAMINATION: VITAL SIGNS: Temperature 97.8, pulse 142, respiratory rate 18, blood pressure 117/64, pulse oximetry 98% on room air. GENERAL APPEARANCE: 46-year-old, , obese female, lying in bed, respons donnie seconds after sternal rub, then falls back to sleep. CARDIOVASCULAR: Tachycardic rate regular rhythm. LUNGS: Expiratory wheezes appreciated in the upper lung lobes bilaterally. EXTREMITIES: 2+ radial and dorsalis pedis pulses bilaterally LABORATORY DATA: See below. IMAGING: MICROBIOLOGY: Please see below. ASSESSMENT: Patient is a 26-year-old female, who presented to the ED on 03/15/2021 after possible OD/suicide attempt. Unable to obtain any further information due to patient being unresponsive. Will assess periodically for improvement and attempt to gain more information from patient as she becomes more lucid. PLAN: #. Possible overdose -Maintenance fluids at 150 mL/h1 to -Maintain suicide precautions -We will get a psychiatric consult #. Alcohol intoxication -At this point, blood pressure to administer benzodiazepine safely -We will need to evaluate for CIWA or Librium as patient's blood pressure increases CODE STATUS: Full code Disposition: Possible intentional overdose/suicide attempt. Patient currently unresponsive. Pending clinical improvement Vital Signs Vital Signs Date Time Temp Pulse Resp B/P (MAP) Pulse Ox O2 Delivery O2 Flow Rate FiO2 03/15/21 23:15 116 16 100/60 (73) 96 03/15/21 22:28 97.8 Room Air Laboratory Data Labs 24H Laboratory Tests 2 03/15/21 21:56: Immature Granulocyte % (Auto) 0.4, Neutrophils (%) (Auto) 73.1H, Lymphocytes (%) (Auto) 21.6L, Monocytes (%) (Auto) 4.3, Eosinophils (%) (Auto) 0.3, Basophils (%) (Auto) 0.3, Neutrophils # (Auto) 11.0H, Lymphocytes # (Auto) 3.3, Monocytes # (Auto) 0.7, Eosinophils # (Auto) 0.0, Basophils # (Auto) 0.0, Nucleated Red Blood Cells % (auto) 0.0, Anion Gap 11, Glomerular Filtration Rate > 60.0, Calcium Level 8.9, Total Bilirubin 0.2, Direct Bilirubin < 0.1, Aspartate Amino Transf (AST/SGOT) 23, Alanine Aminotransferase (ALT/SGPT) 28, Alkaline Phosphatase 124H, Total Creatine Kinase 59, Total Protein 7.9, Albumin 3.5, Albumin/Globulin Ratio 0.8L, Thyroid Stimulating Hormone (TSH) 4.650H, Human Chorionic Gonadotropin, Qual NEGATIVE, Salicylates Level 4.0L, Urine Opiates Screen NEGATIVE, Urine Methadone Screen NEGATIVE, Acetaminophen Level < 2.0L, Urine Barbiturates Screen NEGATIVE, Urine Phencyclidine Screen NEGATIVE, Urine Amphetamines Screen NEGATIVE, Urine Benzodiazepines Screen NEGATIVE, Urine Cocaine Metabolite Screen NEGATIVE, Urine Cannabinoids Screen POSITIVEH, Ethyl Alcohol Level 0.121H 03/15/21 22:02: Coronavirus (COVID-19)(PCR) NEGATIVE, Influenza Type A (RT-PCR) NEGATIVE, Influenza Type B (RT-PCR) NEGATIVE, Respiratory Syncytial Virus (PCR) NEGATIVE CBC/BMP Laboratory Tests 03/15/21 21:56 Home Medications Scheduled Cetirizine HCl (Cetirizine HCl) 10 Mg Tablet, 10 MG PO DAILY Duloxetine HCl (Duloxetine HCl) 60 Mg Capsule.dr, 120 MG PO DAILY at 12pm Levothyroxine Sodium (Levothyroxine Sodium) 25 Mcg Tab, 25 MCG PO DAILY Oxybutynin Chloride (Oxybutynin Chloride) 5 Mg Tablet, 5 MG PO DAILY Prazosin Hcl (Prazosin HCl) 2 Mg Capsule, 2 MG PO QPM Propranolol HCl (Propranolol HCl) 10 Mg Tablet, 10 MG PO BID Quetiapine Fumarate (Quetiapine Fumarate) 100 Mg Tablet, 100 MG PO DAILY @12pm Quetiapine Fumarate (Quetiapine Fumarate) 300 Mg Tablet, 300 MG PO BID at 12pm and 1700 Scheduled PRN Albuterol Sulfate (Ventolin Hfa) 108 Mcg/Act Aer, 2 PUFF INH Q2HP PRN for SHORTNESS OF BREATH Clonazepam (Clonazepam) 0.5 Mg Tablet, 0.5 MG PO DAILY PRN for ANXIETY Miscellaneous Medications [med rec comment] used external med history Allergies Coded Allergies: tomato (Verified Allergy, Severe, 11/06/18) TAPE (Verified Allergy, Intermediate, 11/06/18) rash, blisters, bumps butorphanol (Verified Allergy, Intermediate, 11/06/18) delayed labor latex (Verified Allergy, Intermediate, 11/06/18) nickel (Verified Allergy, Intermediate, 11/06/18) methocarbamol (Verified Allergy, Unknown, 11/06/18) venlafaxine (Verified Allergy, Unknown, 11/06/18) GME ATTESTATION GME ATTESTATION My faculty preceptor for this patient encounter was physically present during the encounter and was fully available. All aspects of the patient interview, examination, medical decision making process, and medical care plan development were reviewed and approved by the faculty preceptor. The faculty preceptor is aware and concurs with the plan as stated in the body of this note and will attest to such by his/her cosignature. ATTENDING NOTE Patient seen and examined, agree with resident's assessment and plan of care. Please refer to H&P for further information Tank Lenz DO Mar 16, 2021 00:31 ADA ALMANZA MD Mar 16, 2021 05:26
[2021-03-16] MEDS ORDERED: NS 500 ML IV ONE (01:25)
[2021-03-16] MEDS ORDERED: NS 1,000 ML IV ONE (02:35)
[2021-03-16] MEDS ORDERED: NS 1,000 ML IV STA (07:35)
[2021-03-16] MEDS ORDERED: NALOXONE INJ 0.4MG/1ML VIAL (J2310 PER 1MG) IV STA (07:42)
--- NOTE | 2021-03-16 07:50 | ECGEPIP ---
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
[2021-03-16] MEDS ORDERED: NS 1,000 ML IV SCH (08:00)
[2021-03-16 08:15] LABS: HEMATOCRIT 37.4 % (36.0-47.0); MEAN CORPUSCULAR HEMOGLOBIN 31.1 pg (27.0-33.0); MEAN CORPUSCULAR HGB CONC 31.6 g/dl (32.0-36.5); MEAN CORPUSCULAR VOLUME 98.7 fl (80.0-96.0); PLATELET COUNT, AUTOMATED 246 10^3/uL (150-450); RED BLOOD COUNT 3.79 10^6/uL (4.00-5.40); WHITE BLOOD COUNT 8.6 10^3/uL (4.0-10.0)
[2021-03-16 08:35] LABS: HEMOGLOBIN 11.8 g/dl (12.0-15.5)
[2021-03-16 08:35] LABS: ABG BASE EXCESS -6.4 (-2.0-2.0); ABG HCO3 18.9 MEQ/L (22.0-26.0); ABG O2 SATURATION 93.3 % (95.0-99.0); ABG PARTIAL PRESSURE O2 69.1 mmHg (75.0-100.0); ABG STANDARD HCO3 19.2 MEQ/L (22.0-26.0); ABG TOTAL CO2 20.1 MEQ/L (22.0-29.0); ABG pH (ARTERIAL) 7.327 UNITS (7.350-7.450)
--- NOTE | 2021-03-16 08:41 | REPVR ---
PROCEDURE INFORMATION: Exam: XR Chest Exam date and time: 03/16/2021 6:09 AM Age: 46 years old Clinical indication: Other: [employer] o2 demand TECHNIQUE: Imaging protocol: XR of the chest. Views: 1 view. COMPARISON: CR Chest, 2 view PA, Lat 01/09/2021 11:57 AM FINDINGS: Limitations: Examination is limited by low inspiratory volume. Multiple overlying electrocardiograph leads. Tubes, catheters and devices: Spinal stimulator lead in the midthoracic spine. Lungs: No focal infiltrate. Pleural spaces: Unremarkable. No pleural effusion. No pneumothorax. Heart/Mediastinum: Unremarkable. No cardiomegaly. Bones/joints: Status post anterior cervical fusion. IMPRESSION: 1. Limited evaluation. 2. No focal infiltrate. Electronically signed by: Maritza Humphrey On 03/16/2021 08:40:25 AM
[2021-03-16 08:48] LABS: ALBUMIN 2.6 GM/DL (3.2-5.2); ALT/SGPT 21 U/L (12-78); BILIRUBIN,TOTAL 0.2 MG/DL (0.2-1.0); BLOOD UREA NITROGEN 9 MG/DL (7-18); CALCIUM LEVEL 7.2 MG/DL (8.5-10.1); CARBON DIOXIDE LEVEL 22 MEQ/L (21-32); CHLORIDE LEVEL 116 MEQ/L (98-107); CREATININE FOR GFR 0.61 MG/DL (0.55-1.30); GLOMERULAR FILTRATION RATE > 60.0 (>58); GLUCOSE, FASTING 134 MG/DL (70-100); MAGNESIUM LEVEL 2.1 MG/DL (1.8-2.4); PHOSPHORUS LEVEL 3.4 MG/DL (2.5-4.9); POTASSIUM SERUM 4.5 MEQ/L (3.5-5.1); SODIUM LEVEL 144 MEQ/L (136-145); TOTAL PROTEIN 5.8 GM/DL (6.4-8.2)
[2021-03-16] MEDS ORDERED: NOREPINEPHRINE BITARTRATE 8 MG in D5W 492 ML IV SCH (09:00)
--- NOTE | 2021-03-16 09:04 | IPNPDOC ---
Text Note Date of Service The patient was seen on 03/16/21. NOTE Subjective: 46-year-old female presented to the emergency room department for possible overdose and suicide attempt. Patient was seen and examined at the bedside this morning. She is unable to contribute to review of systems due to her change in mental status. She was noted to be hypotensive, 68/42 and nurse was asked to give a 1 L bolus. She had received approximately 2.5 L overnight. The ICU team was also made aware of her hypotension and possible need for vasopressors. Review of systems: 10 point review of system was negative except for what is noted in the HPI Physical exam: General: Lying in bed, no acute distress Head/Neck/Throat: Trachea midline, mucous membranes moist Eyes: Sclera anicteric, no erythema or discharge appreciated bilaterally Thorax: Normal respiratory effort on room air, bibasilar crackles appreciated, presently protecting her airway Cardiovascular: Normal rate, regular rhythm, normal S1, S2; no S3, S4, rubs/gallops/murmurs Abdomen: Bowel sounds present, soft, does not grimace when palpating abdomen Genitourinary: Luna draining yellow urine Musculoskeletal: Unable to assess Skin: Warm, dry Neurologic: Withdraws to tactile stimuli. Unable to follow commands. Labs: See below Imaging: Please see imaging section Assessment/plan: 46-year-old female presented to the emergency room department following an overdose and possibly a suicide attempt. Unclear what she had taken. #Metabolic/toxic encephalopathy -Unclear ingestion, ?possibly ambulatory medications in addition to alcohol and cannabis (positive on tox screen) . Continue to monitor vitals. Q2 hour neuro checks. #Overdose -plan as above -No response to Narcan #Hypotensive -Etiology is unclear. There is no overt signs of infection. Possibly 2/2 to overdose. She received 2.5L of fluids and try receiving another liter, if she remains hypotensive she will be started on peripheral vasopressors. ICU team has been consulted. #?Seizure disorder -EEG ordered. There is no reported antiepileptics. #Anxiety/PTSD/Bipolar -hold anxiolytics/mood stabilizers until mental status improves. #DVT prophylaxis -Heparin subcu VS,Fishbone, I+O VS, Fishbone, I+O Laboratory Tests 03/15/21 21:56 03/16/21 08:04 Vital Signs Date Time Temp Pulse Resp B/P (MAP) Pulse Ox O2 Delivery O2 Flow Rate FiO2 03/16/21 08:00 97.2 96 17 94 Nasal Cannula 2.0 03/16/21 07:32 68/42 (51) I&O- Last 24 Hours up to 6 AM 03/16/21 06:00 Intake Total 3500 ml Output Total 850 ml Balance 2650 ml LURDES PARK M.D. Mar 16, 2021 09:04
--- NOTE | 2021-03-16 09:07 | ECGEPIP ---
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
[2021-03-16] MEDS: cefTRIAXone SOD 1 GM in D5W MINI-BAG PLUS 50 ML IV SCH ×2 (09:47→21:01)
[2021-03-16] MEDS: LR 1,000 ML IV SCH (10:51)
--- NOTE | 2021-03-16 13:12 | REP ---
INDICATION: AMS COMPARISON: 11/06/2018 TECHNIQUE: Axial noncontrast images from the skull base to the vertex with coronal reformations. This CT examination was performed using the following dose reduction techniques: Automated exposure control, adjustment of mA and/or kv according to the patient's size, and use of iterative reconstruction technique. FINDINGS: The ventricles, sulci, and cisterns are normal in position and appearance. Daniel-white differentiation is maintained. No acute intracranial hemorrhage, mass/mass effect, pathology or trauma/injury. No evidence for acute infarction. No extra-axial fluid collection. Calvarium is intact. Paranasal sinuses and mastoid air cells are clear. IMPRESSION: Normal noncontrast head CT. No evidence for acute intracranial pathology or trauma/injury. <Electronically signed by Vikash Cain > 03/16/21 [id number]
--- NOTE | 2021-03-16 14:17 | CR ---
CRITICAL CARE CONSULTATION DATE: 03/16/2021 History was obtained from the chart and from other file information as patient is altered and unable to provide a clear history. CHIEF COMPLAINT: Altered mental status and possible suicide attempt. HISTORY OF PRESENT ILLNESS: Miss Mota is a 46-year-old female with a history of hypothyroidism, anxiety, seizure disorder, asthma and fibromyalgia who presented with complaints of altered mental status and a possible suicide attempt. There have been various reports as to the actual events prior to her presentation to the ED. Per [place] [employer], patient's niece had called 911 after patient had texted her boyfriend that she had intentionally overdosed. On arrival to the scene, there were noted empty wine bottles as well as open daily pill packets. Patient initially had admitted to drinking two bottles of wine and taking one Klonopin but denied being suicidal and that her initial text was because her boyfriend had been found cheating and she wanted to hurt his feelings. The patient was reportedly combative with EMS and police. In the ED, patient was lethargic but reportedly was protecting her airway. She was given Narcan this morning given her altered mental status with no improvement. The patient was initially in the PCU Unit. She has had somewhat soft blood pressures overnight and then this morning was noted to be hypotensive with blood pressures dropping down into the 60s and 70s. She had initially been given two liters of fluid overnight and with her hypotension this morning was given an additional one liter of normal saline fluid bolus. With the fluid bolus, she did have improvement in her blood pressure. She did also have lactic acid checked which was normal at 1.7. She was transferred to the ICU, however, for further monitoring and the possibility of vasopressor initiation. PAST MEDICAL AND SURGICAL HISTORY: 1. Migraine. 2. Asthma. 3. GERD. 4. Colitis. 5. Ovarian cyst. 6. Hypothyroidism. 7. Sciatica. 8. PTSD. 9. Anxiety. 10. Seizure disorder. 11. IBS. 12. Fibromyalgia. 13. Cervical spine fusion and discectomy. 14. Appendectomy. 15. Tubal ligation. SOCIAL HISTORY: Reportedly current everyday smoker. Does have a history of some alcohol use but no illicit drug use reportedly. Her U tox was positive for cannabinoids. FAMILY HISTORY: Obtained through the chart, father with a history of CAD and pancreatic cancer. Mother with a history of CVA, thyroid disease and psychiatric issues. HOME MEDICATIONS: 1. Cetirizine. 2. Duloxetine. 3. Levothyroxine. 4. Oxybutynin. 5. Prazosin 6. Propranolol. 7. Seroquel. 8. Albuterol p.r.n. 9. Clonazepam p.r.n. ALLERGIES: TOMATO, TAPE, BUTORPHANOL, LATEX, MILADYS, METHOCARBAMOL, VENLAFAXINE. PHYSICAL EXAMINATION: Vitals: Temperature 97, pulse 96, respirations 17, blood pressure 68/42. O2 sat is 94% on two liters nasal cannula. In three liters, out 850 mL. General: Patient is an obese female, is lying in bed, appears lethargic but is arousable to tactile stimuli and voice. She is able to speak very brief sentences and then lapses back into sleep. HEENT: Normocephalic, atraumatic. Pupils are sluggish but reactive to light bilaterally. Neck: Supple. Trachea is midline. No palpable cervical adenopathy. Cardiac: Tachycardic, regular rate and rhythm. Normal S-1, S-2. No appreciate murmurs. Pulmonary: Diminished breath sounds bilaterally with crackles noted more on the bases of the lung bilaterally. Abdomen: Obese, soft, nontender, nondistended. Extremities: There is no significant lower extremity edema noted bilaterally. There are no rashes or other skin lesions noted. LABORATORY DATA: WBC 8.6, hemoglobin 11.8, platelets are 246. Chemistries: Sodium is 144. Potassium is 4.5. Chloride is 116. Bicarb is 22, BUN 9. Creatinine is 0.61. Glucose is 134. Calcium is 7.2. Lactic acid was 1.7. Troponin was negative. ABG: pH is 7.327, pCO2 of 37, pO2 of 69.1. U tox is positive for cannabinoids and alcohol was 0.121 on admission. Salicylates and acetaminophen level negative. IMAGING: Chest x-ray this morning shows low lung volumes noted with poor inspiratory effort. There is questionable pulmonary vascular congestion but may also be due to technique. Status post anterior cervical fusion. No focal opacities noted. ASSESSMENT AND PLAN: Miss Mota is a 46-year-old female with a history of hypothyroidism, anxiety and a seizure disorder who presented initially with altered mental status following a possible overdose and suicide attempt. Her initial U tox was positive for cannabinoids and alcohol level was positive. She did admit to drinking alcohol and taking her home benzodiazepine. Overnight, patient was noted to be hypotensive and she received IV fluid bolus with some improvement. This morning, she was hypotensive again and given additional IV fluid bolus before being transferred to the ICU for further monitoring and need for possible vasopressors. 1. Metabolic encephalopathy likely in the setting of alcohol abuse as well as possible ingestion. She does have various psychiatric medications at home including benzodiazepines. Patient appears to be more awake this morning. She is still lethargic but is able to speak in very short sentences and does respond to verbal and tactile stimuli. She appears to be maintaining her airway currently and so we will continue monitoring her mental status but she does have a questionable history of seizure disorder and an EEG has been ordered. Continue with neuro checks and continue patient on one-to-one given a possible suicide attempt. We will get a CT of head given her encephalopathy although suspect to be metabolic. The patient's ABG does not show any significant hypercapnia. We will continue monitoring for now but she does not appear to need any invasive ventilation. 2. Hypotension, unclear etiology. She did have initial leukocytosis which improved, however, with IV fluids and she has been afebrile. She is on various psychiatric medications but does not appear to be on significant antihypertensive medications except for propanolol. As she is tachycardic and not bradycardic, suspect she did not overdose on beta jovanny. Her initial lactic acid and troponin was negative. The patient's blood pressure appeared to improve with IV fluids. If she continued to have hypotension refractory to fluid administration, then she may require vasopressors to maintain a MAP above 65. In that case, would get repeat troponins as well as an echocardiogram for evaluation for her hypotension. Patient's lactic acid was normal initially. She does appear to have some urine output although urine does appear cloudy and somewhat concentrated. We will continue her with maintenance fluids but will change her to LR given her hyperchloremia. She does have some mild crackles on exam and there is concern for development of pulmonary edema. Her chest x-ray this morning, however, was poor quality with poor inspiratory effort and difficult to assess. We will check a UA and we will start her on ceftriaxone for empiric antibiotics with deescalation depending on her urine results and blood cultures results. Continue the rest of her home medications as per primary team. However, her psychiatric medications are on hold given her altered mental status. DVT prophylaxis: Heparin. Code Status: FULL CODE. Total critical care time spent not including any procedures approximately one hour and 20 minutes. ED
[2021-03-16] MEDS: HEPARIN SOD (PORCINE) 5000UNITS/ML 1ML VIAL/SYRINGE SQ SCH ×2 (16:37→21:01)
[2021-03-17] VITALS (19 sets, daily range): BP systolic 87–120; BP diastolic 60–81; O2SAT 87–98
[2021-03-17] MEDS: LR 1,000 ML IV SCH (00:42)
[2021-03-17] MEDS: HEPARIN SOD (PORCINE) 5000UNITS/ML 1ML VIAL/SYRINGE SQ SCH ×3 (05:31→21:16)
[2021-03-17 05:56] LABS: HEMATOCRIT 37.5 % (36.0-47.0); HEMOGLOBIN 11.8 g/dl (12.0-15.5); MEAN CORPUSCULAR HEMOGLOBIN 31.1 pg (27.0-33.0); MEAN CORPUSCULAR HGB CONC 31.5 g/dl (32.0-36.5); MEAN CORPUSCULAR VOLUME 98.9 fl (80.0-96.0); PLATELET COUNT, AUTOMATED 247 10^3/uL (150-450); RED BLOOD COUNT 3.79 10^6/uL (4.00-5.40); WHITE BLOOD COUNT 13.3 10^3/uL (4.0-10.0)
[2021-03-17 06:27] LABS: ALBUMIN 2.8 GM/DL (3.2-5.2); ALT/SGPT 29 U/L (12-78); BILIRUBIN,TOTAL 0.3 MG/DL (0.2-1.0); BLOOD UREA NITROGEN 9 MG/DL (7-18); CALCIUM LEVEL 7.6 MG/DL (8.5-10.1); CARBON DIOXIDE LEVEL 25 MEQ/L (21-32); CHLORIDE LEVEL 109 MEQ/L (98-107); CREATININE FOR GFR 0.72 MG/DL (0.55-1.30); GLOMERULAR FILTRATION RATE > 60.0 (>58); GLUCOSE, FASTING 101 MG/DL (70-100); MAGNESIUM LEVEL 2.1 MG/DL (1.8-2.4); POTASSIUM SERUM 4.1 MEQ/L (3.5-5.1); SODIUM LEVEL 140 MEQ/L (136-145); TOTAL PROTEIN 6.1 GM/DL (6.4-8.2)
[2021-03-17] MEDS ORDERED: LIDOCAINE 5% (LIDODERM) PATCH TD SCH (09:00)
[2021-03-17] MEDS ORDERED: QUEtiapine FUMARATE 100 MG TAB PO SCH ×4 (09:00→21:00)
[2021-03-17 09:35] LABS: NT-PRO BNP 233 PG/ML (<125)
[2021-03-17] MEDS: cefTRIAXone SOD 1 GM in D5W MINI-BAG PLUS 50 ML IV SCH (09:37)
[2021-03-17] MEDS ORDERED: ACETAMINOPHEN TAB 650MG DOSE (2X325MG) PO ONE (09:50)
--- NOTE | 2021-03-17 10:43 | REP ---
INDICATION: fell complains of buttocks pain. COMPARISON: None. TECHNIQUE: Single AP view of the pelvis FINDINGS: Osseous structures, joint spaces, and surrounding soft tissues appear normal. No obvious acute injury identified. IMPRESSION: Normal examination. No obvious acute injury. <Electronically signed by Vikash Cain > 03/17/21 1044
--- NOTE | 2021-03-17 10:44 | REP ---
INDICATION: fell complains of buttocks pain COMPARISON: None. TECHNIQUE: AP and frog-lateral views of the right and left femur FINDINGS: The osseous structures and joint spaces are intact and normal. There is no evidence for acute fracture or dislocation. Surrounding soft tissues are unremarkable. No subcutaneous emphysema or radiodense foreign body. IMPRESSION: . No acute fracture or dislocation. <Electronically signed by Vikash Cain > 03/17/21 1048
[2021-03-17] MEDS: ALBUTEROL SULFATE 2.5 MG/0.5 ML INH NEB SOLN NEB SCH ×3 (11:17→19:13)
[2021-03-17] MEDS ORDERED: clonazePAM 0.5 MG TAB PO PRN (11:35)
[2021-03-17] MEDS ORDERED: ALBUTEROL 90 MCG/ACT 8GM HFA INHALER INH PRN (11:35)
--- NOTE | 2021-03-17 11:43 | IPNPDOC ---
Text Note Date of Service The patient was seen on 03/17/21. NOTE Subjective: 46-year-old female presented to the emergency room department for possible overdose and suicide attempt and had a change in mental status. Patient was seen and examined at the bedside this morning. She was back to baseline mental status, awake, alert, oriented x3, and answering all questions appropriately and following commands this morning. She reported drinking with her niece after taking her medication and attributes this to leading to a change in mental status. At this junction, she denies suicidal ideations. She reported having fallen complaining of pain over her right buttocks region. Denies numbness and tingling in the lower extremities, denies focal weakness, bowel bladder incontinence. Review of systems: 10 point review of system was negative except for what is noted in the HPI Physical exam: General: Lying in bed, no acute distress Head/Neck/Throat: Trachea midline, mucous membranes moist Eyes: Sclera anicteric, no erythema or discharge appreciated bilaterally Thorax: Normal respiratory effort on room air, bibasilar crackles appreciated, presently protecting her airway Cardiovascular: Normal rate, regular rhythm, normal S1, S2; no S3, S4, rubs/gallops/murmurs, dorsalis pedis palpable bilaterally Abdomen: Bowel sounds present, soft, does not grimace when palpating abdomen Genitourinary: Luna draining yellow urine Musculoskeletal: Unable to assess Skin: Warm, dry Neurologic: Cranial nerves II to XII intact. Strength in the upper and lower extremities 5/5. Sensation gross touch intact. SLE to 70 degrees negative b/l. Labs: See below Imaging: Please see imaging section Assessment/plan: 46-year-old female presented to the emergency room department following an overdose and change in mental status. There was initial concerns of a possible suicide attempt, which she now denies. #Metabolic/toxic encephalopathy -Resolved. Likely secondary to alcohol intoxication in addition to taking ambulatory medications (was taking clonazepam, duloxetine, and quetiapine). -EKG noted no acute ST/T wave changes, initial troponin was negative. Telemetry has not shown acute arrhythmias. #Overdose -Psychiatry has been consulted #Right sacral pain -F/u up on x-ray of pelvis and femur #Hypotensive -Resolved. Etiology is unclear. There is no overt signs of infection. Possibly 2/2 to overdose (taking prazosin; propranolol unlikely as hr was wnl). -She received 3.5 L and did not require to be placed on vasopressors, which was the initial impression when patient was evaluated on 03/16/21 and ICU team was consulted at that time. -Started on antibiotics by ICU team #?Seizure disorder -EEG was initially ordered when patient was altered. There is no reported antiepileptics. #Hypothyroid -Continue with levothyroxine #Anxiety/PTSD/Bipolar -Resume clonazepam, and quetiapine #DVT prophylaxis -Heparin subcu Disposition: pending x-rays and psych evaluation VS,Fishbone, I+O VS, Fishbone, I+O Laboratory Tests 03/17/21 04:47 Vital Signs Date Time Temp Pulse Resp B/P (MAP) Pulse Ox O2 Delivery O2 Flow Rate FiO2 03/17/21 10:00 92 96 Nasal Cannula 4.0 03/17/21 09:00 111/78 (89) 03/17/21 07:00 97.8 03/17/21 04:00 19 I&O- Last 24 Hours up to 6 AM 03/17/21 06:00 Intake Total 1676 ml Output Total 675 ml Balance 1001 ml LURDES PARK M.D. Mar 17, 2021 11:43
--- NOTE | 2021-03-17 12:16 | CCN ---
CRITICAL CARE NOTE DATE: 03/17/2021 SUBJECTIVE: Patient was seen and examined this morning during bedside rounds. Patient had improvement in her blood pressure yesterday with intravenous (IV) fluids and did not require any vasopressor administration. This morning, she is awake and alert and oriented times three. She denies that she had an intentional overdose or suicide attempt. She states she had taken her usual medication, which included her psychiatric medication, as well as clonazepam and then drank two bottles of wine. She did not overdose on her home medications, as per the patient and states she previously had quit drinking until recently, but that this was not an intentional suicide attempt. She denies any chest pain currently. She does have some cough and occasional mucous production, which she had several days prior to her admission. She states her mother had a viral upper respiratory infection (URI) and she started developing symptoms several days ago with nasal congestion as well as some increased cough and mucus. She does have a history of some chronic cough related to her smoking and she did previously have inhalers for her breathing, with a prior diagnosis of asthma. She did quit smoking at some point, but unfortunately, states she restarted smoking and is an every day current smoker now. Patient does not have any fevers overnight. PHYSICAL EXAMINATION: VITAL SIGNS: Temperature 97.5, pulse 92, respirations 19, blood pressure 118/90, oxygen saturation 95-96% on 3-4 liters nasal cannula. INTAKE AND OUTPUT: In 2.5 liters. Out 1 liter. Net positive 1.5 liters. GENERAL: Patient is awake and alert and oriented times three. She is not in any acute respiratory distress and does not appear to be using any accessory muscles for respiration. HEENT: Normocephalic, atraumatic. Pupils are reactive to light bilaterally. Neck is supple. Trachea is midline. No palpable adenopathy. CARDIAC: Regular rate and rhythm. Normal S1, S2. Unable to clearly auscultate any murmurs. PULMONARY: Patient has some occasional rhonchi and inspiratory squeaks noted with a few crackles as well. ABDOMEN: Obese, soft, nontender, nondistended. EXTREMITIES: There is no significant lower extremity edema noted bilaterally. LABORATORY STUDIES: WBC 13.3, hemoglobin 11.8, platelets 247. Chemistry: Sodium 146, potassium 4.1, chloride 109, bicarbonate 25, BUN 9, creatinine 0.72, glucose 101, calcium 7.6, phosphorus 2.0, albumin 2.8. AST 56, ALT 29, alkaline phosphatase 111. ASSESSMENT AND PLAN: Mrs. Mota is a 46-year-old female with a history of hypothyroidism, anxiety and seizure disorder who presented initially with altered mental status with questionable overdose and suicide attempt. Patient's initial urine toxicology was positive for cannabinoids and her alcohol level as elevated. She was also noted yesterday to have some periods of hypotension, which did respond with IV fluid boluses and did not require any vasopressor administration. 1. Metabolic encephalopathy: Likely in the setting of alcohol abuse as well as compounded by her home psychiatric medications, which include benzodiazepines. - Patient is awake, alert and oriented times three this morning. She denies having an intentional overdose or suicide attempt and feels that it was drinking two bottles of wine on top of her usual home medications, which include various psychiatric medications. - She will need psychiatric consultation and we will continue with one-to-one for now pending their evaluation. - Patient's head CT did not show any acute intercranial pathology. 2. Hypotension. Improved with IV fluid administration. - Patient does have leukocytosis, but is afebrile currently. - Her urinalysis was somewhat dirty and she was started on antibiotics with ceftriaxone. Will follow up the results of her cultures and deescalate appropriately. - We will continue to monitor her leukocytosis as well to head filter tank tender helper in antibiotic course and deescalation. There is suspicion as well as possible aspiration pneumonia, given her presentation and current cough today. 3. Hypoxia. Patient is on oxygen supplementation currently, although she can be weaned down from her 4 liters to 3 liters, which she is tolerating well. Will check a brain natriuretic peptide (BNP), as she did receive IV fluid boluses to see if there is any degree of pulmonary edema contributing to some of her hypoxia. She is having some coarse rhonchi noted and some inspiratory squeaks on exam and she does have a history of asthma and nicotine dependence. - Will start her on nebulized bronchodilators with albuterol to help with mucous clearance. - Will give her incentive spirometer, as she likely does have some degree of atelectasis contributing. - Patient's initial chest x-ray was poor quality. Will repeat chest x-ray today. With her altered mental status and alcohol intoxication, she may have had some degree of aspiration. 4. Deep venous thrombosis (DVT) prophylaxis: Heparin. 5. CODE STATUS: FULL CODE. Total care time spent not including procedures: Approximately 45 minutes. Please do not hesitate to call for any further questions or concerns.
[2021-03-17] MEDS: LEVOTHYROXINE 25MCG TABLET (0.025MG) PO SCH (12:33)
--- NOTE | 2021-03-17 13:25 | REP ---
INDICATION: hypoxia COMPARISON: 03/16/2021 TECHNIQUE: PA and lateral. FINDINGS: The mediastinum and cardiac silhouette are normal. The lung alt[place] are clear and without acute consolidation, effusion, or pneumothorax. The skeletal structures are intact and normal. IMPRESSION: No acute cardiopulmonary process. <Electronically signed by Vikash Cain > 03/17/21 [id number]
[2021-03-17] MEDS ORDERED: HALOPERIDOL 5MG/ML VIAL (J1630 PER 1) IV STA (14:01)
[2021-03-17] MEDS ORDERED: HALOPERIDOL 5MG/ML VIAL (J1630 PER 1) As Ordered ONE (14:02)
[2021-03-17] MEDS ORDERED: LORazepam 2 MG/ML VIAL IV STA (19:00)
[2021-03-17] MEDS: NICOTINE POLACRILEX 2 MG GUM PO PRN (19:24)
[2021-03-17] MEDS: CEFDINIR 300 MG CAP (OMNICEF) PO SCH (20:38)
[2021-03-17] MEDS ORDERED: DICLOFENAC EPOLAMINE 1.3 % PATCH TOP ONE (20:45)
[2021-03-17] MEDS ORDERED: IBUPROFEN 800 MG TAB PO ONE (20:55)
[2021-03-17] MEDS ORDERED: **NOTE PATIENT COMMENT** MISC XX SCH (21:00)
[2021-03-18] VITALS: BP 113/73
[2021-03-18] MEDS: ALBUTEROL SULFATE 2.5 MG/0.5 ML INH NEB SOLN NEB SCH ×5 (00:24→15:12)
[2021-03-18 04:00] VITALS: BP 119/64
[2021-03-18] MEDS: LEVOTHYROXINE 25MCG TABLET (0.025MG) PO SCH (05:09)
[2021-03-18] MEDS: HEPARIN SOD (PORCINE) 5000UNITS/ML 1ML VIAL/SYRINGE SQ SCH ×2 (05:09→13:51)
[2021-03-18 05:42] LABS: BASO % 0.3 % (0.0-1.0); EOS # 0.2 10^3/uL (0.0-0.5); EOS % 2.2 % (0.0-3.0); HEMATOCRIT 37.4 % (36.0-47.0); HEMOGLOBIN 11.6 g/dl (12.0-15.5); LYMPH # 3.2 10^3/uL (1.5-5.0); LYMPH % 42.2 % (24.0-44.0); MEAN CORPUSCULAR HEMOGLOBIN 30.5 pg (27.0-33.0); MEAN CORPUSCULAR VOLUME 98.4 fl (80.0-96.0); MONO # 0.5 10^3/uL (0.0-0.8); NEUTROPHILS # 3.7 10^3/uL (1.5-8.5); NEUTROPHILS % 47.6 % (36.0-66.0); PLATELET COUNT, AUTOMATED 237 10^3/uL (150-450); WHITE BLOOD COUNT 7.7 10^3/uL (4.0-10.0)
[2021-03-18 06:16] LABS: BLOOD UREA NITROGEN 8 MG/DL (7-18); CALCIUM LEVEL 8.2 MG/DL (8.5-10.1); CARBON DIOXIDE LEVEL 28 MEQ/L (21-32); CHLORIDE LEVEL 108 MEQ/L (98-107); CREATININE FOR GFR 0.65 MG/DL (0.55-1.30); GLOMERULAR FILTRATION RATE > 60.0 (>58); GLUCOSE, FASTING 107 MG/DL (70-100); MAGNESIUM LEVEL 2.3 MG/DL (1.8-2.4); PHOSPHORUS LEVEL 3.1 MG/DL (2.5-4.9); POTASSIUM SERUM 3.9 MEQ/L (3.5-5.1); SODIUM LEVEL 140 MEQ/L (136-145)
[2021-03-18 07:03] VITALS: BP 115/62
[2021-03-18] MEDS: CEFDINIR 300 MG CAP (OMNICEF) PO SCH (08:30)
[2021-03-18] MEDS ORDERED: LIDOCAINE 5% (LIDODERM) PATCH TD SCH (09:00)
[2021-03-18] MEDS ORDERED: QUEtiapine FUMARATE 200 MG TAB PO SCH (09:00)
[2021-03-18] MEDS ORDERED: CEFD300CAP PO (10:26)
[2021-03-18 11:42] VITALS: BP 119/61
--- NOTE | 2021-03-18 12:01 | DSES ---
DISCHARGE SUMMARY DATE OF ADMISSION: 03/15/2021 PENDING DATE OF DISCHARGE: 03/18/2021 PRINCIPAL DIAGNOSIS: Metabolic encephalopathy probably secondary to alcohol intoxication as well as prescription medications. SECONDARY DIAGNOSES: 1. Right sacral pain. No fracture on x-rays. 2. Hypotension (probably related to prazosin and propranolol). 3. ? urinary infection. 4. Seizure disorder. 5. Hypothyroidism. 6. History of bipolar disorder, PTSD, and anxiety. HISTORY: Patient was admitted with altered mental status. There was some question whether she might have taken an overdose. Apparently was drinking alcohol and then took her psychotropic medications and then had change in mental status. She denies suicidal ideation or suicide attempt. Psychiatry has been consulted, and their formal consultation is pending (discharge anticipation of their clearing her for home). HOSPITAL COURSE: She was hypotensive. During the hospitalization was seen by Critical Care and given IV fluids and IV pressors. Started empirically on antibiotics. She had a urinalysis done that was reported as "dirty," but actually there were no white cells, and there was no culture done. She had a chest x-ray that showed no acute disease. She was started empirically on ceftriaxone and changed to cefdinir. PHYSICAL EXAMINATION: GENERAL: On the day of pending discharge, she is alert, conversant, and eager to go home. She feels back to baseline. LUNGS: Her lungs have a few wheezes. HEART: Regular rate and rhythm. ABDOMEN: Soft, nontender. EXTREMITIES: No peripheral edema. NEUROLOGIC: Nonfocal. VITAL SIGNS: She is afebrile. LABORATORY DATA: COVID test negative. Sodium 140, potassium 3.9, BUN 8, creatinine 0.6, glucose 107. White count 7.7, hemoglobin 11.6, platelets 237. Urinalysis showed no white cells, no bacteria. Blood culture was negative. No urine culture done. Chest x-ray: No active disease. X-rays of pelvis, femur, and CT of the head showed no fracture or abnormalities. DISPOSITION: I called the Inpatient Mental Health Unit and anticipate her being seen by Psychiatry, and if they agree that the patient is not at risk to herself, then I anticipate her discharge home. She already has a psychiatrist at [facility]. Dr. Brasher is her primary care provider. DISCHARGE MEDICATIONS: 1. Albuterol two puffs q.4 hours p.r.n. 2. Cetirizine 10 mg daily. 3. Klonopin 0.5 mg daily p.r.n. for anxiety. 4. Duloxetine 120 mg daily. 5. Levothyroxine 25 mcg daily. 6. Oxybutynin 5 mg daily. 7. Propranolol 10 mg b.i.d. 8. Seroquel 400 mg in the morning and 300 mg in the evening. 9. Cefdinir 300 mg b.i.d. for five days. ACTIVITY: As tolerated. DIET: Regular. PLAN: Discharge is pending patient being cleared by Psychiatry.
[2021-03-18] MEDS: NICOTINE POLACRILEX 2 MG GUM PO PRN (13:46)
== END 2021-03-18 15:10 | DRG 52 ==
LOC: M ED 21:40 → M ED INP 23:36 → ENRESERV 03-16 00:39 → M PCU 03-16 01:13
PROVIDERS: ADMIT Internal Medicine; ATTEND Internal Medicine
DX: G92.8 Other toxic encephalopathy (principal); F10.121 Alcohol abuse with intoxication delirium; I95.9 Hypotension, unspecified; F31.9 Bipolar disorder, unspecified; J45.909 Unspecified asthma, uncomplicated; K21.9 Gastro-esophageal reflux disease without esophagitis; E03.9 Hypothyroidism, unspecified; F41.9 Anxiety disorder, unspecified; F43.10 Post-traumatic stress disorder, unspecified; G40.909 Epilepsy, unspecified, not intractable, without status epilepticus; K58.9 Irritable bowel syndrome, unspecified; M53.3 Sacrococcygeal disorders, not elsewhere classified; M79.7 Fibromyalgia; N39.3 Stress incontinence (female) (male); F17.200 Nicotine dependence, unspecified, uncomplicated; G43.909 Migraine, unspecified, not intractable, without status migrainosus; Z20.822 Contact with and (suspected) exposure to COVID-19; Z79.899 Other long term (current) drug therapy; Z88.8 Allergy status to other drugs, medicaments and biological substances; Z91.018 Allergy to other foods; Z91.040 Latex allergy status; Z91.048 Other nonmedicinal substance allergy status

== ENCOUNTER 2021-03-18 12:01 | Inpatient (IN) | payer MEDICAID, OTHER ==
[~2021-03-18] VITALS: Ht 167.6 cm; Wt 117.5 kg
[~2021-03-18 12:01] MED LIST changes: +CEFD300CAP PO; +CETI-24 PO; +CLON0.5T2 PO; +DULO60CA35 PO; +OXYB5TAB10 PO; +PROP10TA56 PO; +med rec comment
[2021-03-18] MEDS ORDERED: MAALOX 30 ML SUSP *UDC PO PRN (12:35)
[2021-03-18] MEDS ORDERED: MOM 30ML SUSPENSION UDC PO PRN (12:35)
[2021-03-18] MEDS ORDERED: ACETAMINOPHEN TAB 650MG DOSE (2X325MG) PO PRN (12:35)
[2021-03-18 16:30] VITALS: BP 142/76
[2021-03-18] MEDS: traZODone 50 MG TAB PO PRN (20:30)
[2021-03-19 06:08] VITALS: BP 120/61
[2021-03-19] MEDS: PROPRANOLOL 10 MG TAB PO SCH ×2 (13:05→20:27)
[2021-03-19] MEDS: DULoxetine 30MG CAPSULE (CYMBALTA) PO SCH (14:31)
[2021-03-19 16:16] VITALS: BP 135/80
[2021-03-19] MEDS ORDERED: ALBUTEROL 90 MCG/ACT 8GM HFA INHALER INH PRN (17:45)
[2021-03-19] MEDS: CEFDINIR 300 MG CAP (OMNICEF) PO SCH (20:25)
[2021-03-19] MEDS: traZODone 50 MG TAB PO PRN (20:28)
[2021-03-19] MEDS ORDERED: QUEtiapine FUMARATE 200 MG TAB PO SCH (21:00)
[2021-03-20] MEDS ORDERED: LEVOTHYROXINE 25MCG TABLET (0.025MG) PO SCH (06:00)
[2021-03-20 06:24] VITALS: BP 106/56
[2021-03-20] MEDS ORDERED: QUEtiapine FUMARATE 100 MG TAB PO SCH (09:00)
[2021-03-20] MEDS ORDERED: oxyBUTYnin 5 MG TAB PO SCH (09:00)
[2021-03-20] MEDS ORDERED: CETIRIZINE (ZyrTEC) 10 MG TAB PO SCH (09:00)
[2021-03-20 09:19] VITALS: BP 130/88
[2021-03-20] MEDS: PROPRANOLOL 10 MG TAB PO SCH (09:19)
[2021-03-20] MEDS: DULoxetine 30MG CAPSULE (CYMBALTA) PO SCH (09:19)
[2021-03-20] MEDS: CEFDINIR 300 MG CAP (OMNICEF) PO SCH (09:20)
[2021-03-20] MEDS ORDERED: CYMB1CAP5 PO (12:01)
[2021-03-20] MEDS ORDERED: TRAZ-252 PO (12:01)
[2021-03-20] MEDS ORDERED: QUET200T2 PO (12:01)
[2021-03-20] MEDS ORDERED: QUET100T2 PO (12:01)
[2021-03-20] MEDS ORDERED: PROP10TA56 PO (12:01)
[2021-03-21] MEDS ORDERED: SERO1TAB2 PO (12:29)
[2021-03-21] MEDS ORDERED: QUET100T2 PO (12:29)
== END 2021-03-20 14:25 | disposition home or self-care (01) | DRG 751 ==
LOC: M PSY 15:15
PROVIDERS: ADMIT Psychiatry & Neurology Psychiatry; ATTEND Student in an Organized Health Care Education/Training Program
DX: F33.1 Major depressive disorder, recurrent, moderate (principal); E03.9 Hypothyroidism, unspecified; F43.10 Post-traumatic stress disorder, unspecified; F60.3 Borderline personality disorder; F10.10 Alcohol abuse, uncomplicated; G43.909 Migraine, unspecified, not intractable, without status migrainosus; J45.909 Unspecified asthma, uncomplicated; K21.9 Gastro-esophageal reflux disease without esophagitis; Z88.8 Allergy status to other drugs, medicaments and biological substances; Z91.040 Latex allergy status; Z79.899 Other long term (current) drug therapy; Z91.51 Personal history of suicidal behavior; Z91.018 Allergy to other foods; Z91.048 Other nonmedicinal substance allergy status; Z62.812 Personal history of neglect in childhood

== ENCOUNTER → 2021-05-08 | Outpatient (REF) | payer OTHER ==
[~2021-05-08] MED LIST changes: -CETI-43 PO; +GNPTAB36 PO; +QUET200T2 PO; +SERO1TAB2 PO; +TRAZ-252 PO
== END ==
LOC: M SFHCPLAZ 09:16
PROVIDERS: ATTEND Family Medicine
DX: E78.00 Pure hypercholesterolemia, unspecified (principal); E03.9 Hypothyroidism, unspecified; D35.2 Benign neoplasm of pituitary gland; Z53.9 Procedure and treatment not carried out, unspecified reason

== ENCOUNTER → 2021-06-14 | Outpatient (CLI) | payer OTHER ==
[2021-06-14 11:11] LABS: CHOLESTEROL RISK RATIO 6.228 (<5); FREE T4 0.73 NG/DL (0.76-1.46); PROLACTIN 5.3 NG/ML; THYROID STIMULATING HORMONE 1.29 uIU/ML (0.358-3.740)
== END ==
LOC: M LAB 09:33
PROVIDERS: ATTEND Family Medicine
DX: E78.00 Pure hypercholesterolemia, unspecified (principal); E03.9 Hypothyroidism, unspecified; D35.2 Benign neoplasm of pituitary gland

== ENCOUNTER → 2021-06-20 | Outpatient (CLI) | payer OTHER | LOC: M PAIN 11:00 | PROVIDERS: ATTEND Nurse Practitioner Family | DX: Z53.21 Procedure and treatment not carried out due to patient leaving prior to being seen by health care provider (principal) ==

== ENCOUNTER → 2021-07-19 | Outpatient (CLI) | payer OTHER ==
[~2021-07-19] MED LIST changes: +AMOX875T2 PO; +MINI2CAP PO; -ZONI100C17 PO; +ZONI100C67 PO
== END ==
LOC: M PAIN 10:00
PROVIDERS: ATTEND Nurse Practitioner Family
DX: M96.1 Postlaminectomy syndrome, not elsewhere classified (principal); M79.7 Fibromyalgia; E03.9 Hypothyroidism, unspecified; F17.210 Nicotine dependence, cigarettes, uncomplicated; Z96.89 Presence of other specified functional implants; Z86.59 Personal history of other mental and behavioral disorders; Z88.8 Allergy status to other drugs, medicaments and biological substances; Z91.040 Latex allergy status; Z91.09 Other allergy status, other than to drugs and biological substances; E66.01 Morbid (severe) obesity due to excess calories; Z68.41 Body mass index [BMI] 40.0-44.9, adult; Z79.899 Other long term (current) drug therapy

== ENCOUNTER 2021-07-21 11:36 | Emergency (ER) | payer OTHER ==
[~2021-07-21] VITALS: Ht 167.6 cm; Wt 111.8 kg
[~2021-07-21 11:36] MED LIST changes: -AMOX875T2 PO; -MINI2CAP PO
[2021-07-21 11:37] VITALS: BP 101/63
[2021-07-21] MEDS ORDERED: TOPA100T12 PO (11:51)
[2021-07-21] MEDS ORDERED: MINI2CAP PO (11:51)
[2021-07-21] MEDS ORDERED: AMOX875T2 PO (13:15)
== END 2021-07-21 13:23 | disposition home or self-care (01) ==
LOC: M ED 11:36
DX: H66.91 Otitis media, unspecified, right ear (principal); K21.9 Gastro-esophageal reflux disease without esophagitis; G43.909 Migraine, unspecified, not intractable, without status migrainosus; M54.9 Dorsalgia, unspecified; E03.9 Hypothyroidism, unspecified; R56.9 Unspecified convulsions; F43.10 Post-traumatic stress disorder, unspecified; F31.9 Bipolar disorder, unspecified; Z88.8 Allergy status to other drugs, medicaments and biological substances; Z91.040 Latex allergy status; Z79.890 Hormone replacement therapy; Z79.899 Other long term (current) drug therapy

== ENCOUNTER → 2021-08-27 | Outpatient (CLI) | payer OTHER ==
[~2021-08-27] MED LIST changes: +AMOX875T2 PO; +MINI2CAP PO
== END ==
LOC: M RAD 15:35
PROVIDERS: ATTEND Nurse Practitioner Family
DX: M96.1 Postlaminectomy syndrome, not elsewhere classified (principal)

== ENCOUNTER → 2021-10-25 | Outpatient (CLI) | payer OTHER ==
[2021-10-25 14:22] LABS: ALBUMIN 3.4 GM/DL (3.2-5.2); ALT/SGPT 18 U/L (12-78); BILIRUBIN,TOTAL 0.2 MG/DL (0.2-1.0); BLOOD UREA NITROGEN 12 MG/DL (7-18); CALCIUM LEVEL 9.1 MG/DL (8.5-10.1); CARBON DIOXIDE LEVEL 26 MEQ/L (21-32); CHLORIDE LEVEL 109 MEQ/L (98-107); CHOLESTEROL LEVEL 235 MG/DL (<200); CHOLESTEROL RISK RATIO 5.731 (<5); FREE T4 0.63 NG/DL (0.76-1.46); GLOMERULAR FILTRATION RATE > 60.0 (>58); GLUCOSE, FASTING 112 MG/DL (70-100); HDL CHOLESTEROL 41 MG/DL (>40); LDL CHOLESTEROL 158 MG/DL (<100); NON-HDL-C 194 MG/DL; POTASSIUM SERUM 4.7 MEQ/L (3.5-5.1); SODIUM LEVEL 138 MEQ/L (136-145); TOTAL PROTEIN 7.1 GM/DL (6.4-8.2); TRIGLYCERIDES LEVEL 182 MG/DL (<150)
[2021-10-25 14:23] LABS: HEMOGLOBIN A1c 5.9 %
== END ==
LOC: M PLALAB 11:31
PROVIDERS: ATTEND Student in an Organized Health Care Education/Training Program
DX: E03.9 Hypothyroidism, unspecified (principal); Z13.1 Encounter for screening for diabetes mellitus; Z13.220 Encounter for screening for lipoid disorders

== ENCOUNTER → 2022-01-28 | Outpatient (CLI) | payer OTHER | LOC: M PAIN 10:15 | PROVIDERS: ATTEND Nurse Practitioner Family | DX: M79.10 Myalgia, unspecified site (principal); M79.7 Fibromyalgia; E03.9 Hypothyroidism, unspecified; K58.9 Irritable bowel syndrome, unspecified; N39.3 Stress incontinence (female) (male); Z86.16 Personal history of COVID-19; G56.03 Carpal tunnel syndrome, bilateral upper limbs; Z79.890 Hormone replacement therapy; Z79.1 Long term (current) use of non-steroidal anti-inflammatories (NSAID); Z79.899 Other long term (current) drug therapy; F17.210 Nicotine dependence, cigarettes, uncomplicated; Z88.8 Allergy status to other drugs, medicaments and biological substances; Z91.040 Latex allergy status; Z91.048 Other nonmedicinal substance allergy status; J30.81 Allergic rhinitis due to animal (cat) (dog) hair and dander ==

== ENCOUNTER → 2022-03-27 | Outpatient (CLI) | payer OTHER | LOC: M LABSMTC 10:54 | PROVIDERS: ATTEND Anesthesiology | DX: Z01.818 Encounter for other preprocedural examination (principal); Z11.52 Encounter for screening for COVID-19 ==

== ENCOUNTER → 2022-03-31 | Outpatient (CLI) | payer OTHER ==
[~2022-03-31] MED LIST changes: +BUPIVACAINE HCL 0.25% 10ML VIAL As Ordered ONE; +BUPIVACAINE HCL 0.25% 30ML VIAL As Ordered ONE; +TRIAMCINOLONE ACETONIDE SUSP 40MG/ML 1ML VIAL As Ordered ONE; +diazePAM 5MG TABLET As Ordered ONE; +oxyCODONE 5MG TAB As Ordered ONE
== END ==
LOC: M PAIN 15:00
PROVIDERS: ATTEND Anesthesiology
DX: M79.12 Myalgia of auxiliary muscles, head and neck (principal); M79.18 Myalgia, other site; M79.7 Fibromyalgia; E03.9 Hypothyroidism, unspecified; K58.9 Irritable bowel syndrome, unspecified; N39.3 Stress incontinence (female) (male); G56.03 Carpal tunnel syndrome, bilateral upper limbs; J30.81 Allergic rhinitis due to animal (cat) (dog) hair and dander; F31.9 Bipolar disorder, unspecified; F43.10 Post-traumatic stress disorder, unspecified; Z79.890 Hormone replacement therapy; Z79.1 Long term (current) use of non-steroidal anti-inflammatories (NSAID); Z79.899 Other long term (current) drug therapy; F17.210 Nicotine dependence, cigarettes, uncomplicated; Z88.8 Allergy status to other drugs, medicaments and biological substances; Z91.040 Latex allergy status; Z91.048 Other nonmedicinal substance allergy status; Z86.16 Personal history of COVID-19

== ENCOUNTER → 2022-04-16 | Outpatient (REF) ==
[~2022-04-16] MED LIST changes: -BUPIVACAINE HCL 0.25% 10ML VIAL As Ordered ONE; -BUPIVACAINE HCL 0.25% 30ML VIAL As Ordered ONE; -TRIAMCINOLONE ACETONIDE SUSP 40MG/ML 1ML VIAL As Ordered ONE; -diazePAM 5MG TABLET As Ordered ONE; -oxyCODONE 5MG TAB As Ordered ONE
== END ==
LOC: M PLAIMG 15:16
PROVIDERS: ATTEND Internal Medicine
DX: Z00.00 Encounter for general adult medical examination without abnormal findings (principal)

== ENCOUNTER → 2022-04-25 | Outpatient (CLI) | payer OTHER ==
[2022-04-25 13:56] LABS: BASO # 0.1 10^3/uL (0.0-0.2); BASO % 0.5 % (0.0-1.0); EOS # 0.2 10^3/uL (0.0-0.5); EOS % 1.4 % (0.0-3.0); HEMATOCRIT 46.3 % (36.0-47.0); HEMOGLOBIN 14.9 g/dl (12.0-15.5); LYMPH # 4.3 10^3/uL (1.5-5.0); LYMPH % 31.8 % (24.0-44.0); MEAN CORPUSCULAR HEMOGLOBIN 31.8 pg (27.0-33.0); MEAN CORPUSCULAR HGB CONC 32.2 g/dl (32.0-36.5); MEAN CORPUSCULAR VOLUME 98.9 fl (80.0-96.0); MONO # 0.9 10^3/uL (0.0-0.8); MONO % 6.4 % (2.0-8.0); NEUTROPHILS % 59.5 % (36.0-66.0); PLATELET COUNT, AUTOMATED 296 10^3/uL (150-450); RED BLOOD COUNT 4.68 10^6/uL (4.00-5.40); WHITE BLOOD COUNT 13.5 10^3/uL (4.0-10.0)
== END ==
LOC: M PLALAB 10:39
PROVIDERS: ATTEND Student in an Organized Health Care Education/Training Program
DX: R11.14 Bilious vomiting (principal)

== ENCOUNTER → 2022-05-16 | Outpatient (CLI) | payer OTHER | LOC: M RAD 15:20 | PROVIDERS: ATTEND Student in an Organized Health Care Education/Training Program | DX: R09.89 Other specified symptoms and signs involving the circulatory and respiratory systems (principal) ==

== ENCOUNTER → 2022-05-20 | Outpatient (CLI) | payer OTHER | LOC: M PAIN 10:00 | PROVIDERS: ATTEND Nurse Practitioner Family | DX: M96.1 Postlaminectomy syndrome, not elsewhere classified (principal); M50.10 Cervical disc disorder with radiculopathy, unspecified cervical region; F17.210 Nicotine dependence, cigarettes, uncomplicated; M79.7 Fibromyalgia; J30.81 Allergic rhinitis due to animal (cat) (dog) hair and dander; E03.9 Hypothyroidism, unspecified; K58.9 Irritable bowel syndrome, unspecified; Z79.899 Other long term (current) drug therapy; Z88.8 Allergy status to other drugs, medicaments and biological substances; Z91.040 Latex allergy status; Z91.048 Other nonmedicinal substance allergy status ==

== ENCOUNTER → 2022-06-17 | Outpatient (CLI) | payer OTHER | LOC: M PAIN 10:15 | PROVIDERS: ATTEND Nurse Practitioner Family | DX: M96.1 Postlaminectomy syndrome, not elsewhere classified (principal); M79.9 Soft tissue disorder, unspecified; F17.210 Nicotine dependence, cigarettes, uncomplicated; E03.9 Hypothyroidism, unspecified; K58.9 Irritable bowel syndrome, unspecified; Z86.16 Personal history of COVID-19; Z79.1 Long term (current) use of non-steroidal anti-inflammatories (NSAID); Z79.890 Hormone replacement therapy; Z79.899 Other long term (current) drug therapy; Z88.8 Allergy status to other drugs, medicaments and biological substances; Z91.048 Other nonmedicinal substance allergy status; J30.81 Allergic rhinitis due to animal (cat) (dog) hair and dander; Z91.018 Allergy to other foods ==

== ENCOUNTER → 2022-08-26 | Outpatient (CLI) | payer OTHER ==
[~2022-08-26] MED LIST changes: +ISOVUE-M 300 61% 15ML VIAL As Ordered ONE; +LIDOCAINE 1% SDV 30ML VIAL As Ordered ONE; +diazePAM 5MG TABLET As Ordered ONE; +methylPREDNISolone SUSP 40MG/ML 1ML VIAL (DEPO MEDROL) As Ordered ONE; +oxyCODONE 5MG TAB As Ordered ONE
== END ==
LOC: M PAIN 09:00
PROVIDERS: ATTEND Anesthesiology
DX: M54.2 Cervicalgia (principal); E03.9 Hypothyroidism, unspecified; F17.210 Nicotine dependence, cigarettes, uncomplicated; M79.7 Fibromyalgia; Z79.899 Other long term (current) drug therapy; Z79.1 Long term (current) use of non-steroidal anti-inflammatories (NSAID); Z88.8 Allergy status to other drugs, medicaments and biological substances; J30.81 Allergic rhinitis due to animal (cat) (dog) hair and dander
CPT/HCPCS: 62321; J1030; Q9967

== ENCOUNTER → 2022-08-27 | Outpatient (CLI) | payer OTHER ==
[~2022-08-27] MED LIST changes: -ISOVUE-M 300 61% 15ML VIAL As Ordered ONE; -LIDOCAINE 1% SDV 30ML VIAL As Ordered ONE; -diazePAM 5MG TABLET As Ordered ONE; -methylPREDNISolone SUSP 40MG/ML 1ML VIAL (DEPO MEDROL) As Ordered ONE; -oxyCODONE 5MG TAB As Ordered ONE
[2022-08-27 14:28] LABS: BLOOD UREA NITROGEN 15 MG/DL (9-23); CALCIUM LEVEL 8.6 MG/DL (8.5-10.1); CARBON DIOXIDE LEVEL 24 MMOL/L (20-31); CHLORIDE LEVEL 109 MMOL/L (98-107); CREATININE FOR GFR 0.69 MG/DL (0.55-1.30); GLOMERULAR FILTRATION RATE > 60.0 (>58); GLUCOSE, FASTING 107 MG/DL (60-100); POTASSIUM SERUM 4.2 MMOL/L (3.5-5.1); SODIUM LEVEL 139 MMOL/L (136-145)
== END ==
LOC: M PLALAB 09:24
PROVIDERS: ATTEND Student in an Organized Health Care Education/Training Program
DX: M50.10 Cervical disc disorder with radiculopathy, unspecified cervical region (principal)

== ENCOUNTER → 2022-10-29 | Outpatient (REF) | payer OTHER | LOC: M SFHCPLAZ 12:30 | PROVIDERS: ATTEND Student in an Organized Health Care Education/Training Program | DX: Z00.00 Encounter for general adult medical examination without abnormal findings (principal); E03.9 Hypothyroidism, unspecified; E78.00 Pure hypercholesterolemia, unspecified; R73.03 Prediabetes ==

== ENCOUNTER → 2022-12-02 | Outpatient (CLI) | payer OTHER | LOC: M PLAIMG 13:58 | PROVIDERS: ATTEND Student in an Organized Health Care Education/Training Program | DX: G89.29 Other chronic pain (principal); M25.512 Pain in left shoulder ==

== ENCOUNTER → 2023-07-14 | Outpatient (CLI) | payer OTHER ==
[~2023-07-14] MED LIST changes: -OXYB5TAB10 PO; +OXYB5TAB14 PO; +TRIAMCINOLONE ACETONIDE SUSP 40MG/ML 1ML VIAL As Ordered ONE; +diazePAM 5MG TABLET As Ordered ONE; +oxyCODONE 5MG TAB As Ordered ONE
== END ==
LOC: M PAIN 13:00
PROVIDERS: ATTEND Anesthesiology
DX: M79.18 Myalgia, other site (principal); G89.29 Other chronic pain; F17.210 Nicotine dependence, cigarettes, uncomplicated; E03.9 Hypothyroidism, unspecified; K58.9 Irritable bowel syndrome, unspecified; Z79.899 Other long term (current) drug therapy; Z88.8 Allergy status to other drugs, medicaments and biological substances; Z91.040 Latex allergy status; Z91.048 Other nonmedicinal substance allergy status
CPT/HCPCS: 20552; J0665; J3301

== ENCOUNTER → 2023-12-21 | Outpatient (CLI) | payer OTHER ==
[~2023-12-21] MED LIST changes: +GABA-1172; +GABA-1172 PO; -GABA-282; -GABA-282 PO; -TRIAMCINOLONE ACETONIDE SUSP 40MG/ML 1ML VIAL As Ordered ONE; -diazePAM 5MG TABLET As Ordered ONE; -oxyCODONE 5MG TAB As Ordered ONE
[2023-12-21 19:27] LABS: FOLLICLE STIMULATING HORMONE 10.7 mIU/ML; HEMOGLOBIN A1c 5.9 % (4.0-6.0); LUTEINIZING HORMONE 4.7 mIU/ML
[2023-12-21 19:28] LABS: THYROID STIMULATING HORMONE 1.882 uIU/ML (0.55-4.78)
[2023-12-21 19:29] LABS: FREE T4 0.97 NG/DL (0.89-1.76); PROLACTIN 4.11 NG/ML
== END ==
LOC: M PLALAB 14:21
PROVIDERS: ATTEND Student in an Organized Health Care Education/Training Program
DX: D35.2 Benign neoplasm of pituitary gland (principal)